=== PATIENT | female | born 1970 | race Caucasian/White ===

== ENCOUNTER 2022-02-22 19:13 | Emergency (ER) | payer OTHER, SELFPAY ==
[2022-02-22] VITALS (11 sets, daily range): BP systolic 77–100; BP diastolic 35–71; PULSE 55–83; RESP 14–16; TEMP 36.7; O2SAT 96–100; BMI 25.4
[2022-02-22 20:52] LABS: Appearance Urine Cloudy (Clear); Bilirubin Urine Negative (Negative); Blood Urine 2+ (Negative); Color Urine Yellow (Yellow); Glucose Urine Negative (Negative); Ketones Urine Trace (Negative); Leukocyte Esterase Urine 1+ (Negative); Nitrite Urine Positive (Negative); Protein Urine Trace (Negative); Urobilinogen Urine 0.2 (0.2-1.0); pH Urine 6.5 (5.0-8.5)
[2022-02-22 20:55] LABS: Bacteria Urine Moderate; Squamous Epithelial Cell Urine Few (None-Few)
--- NOTE | 2022-02-22 21:00 | ED.GENADULT ---
HPI - General Adult General Time Seen by Provider: 21:00 Date Seen: 02/22/22 Chief complaint: Urogenital Problems, Female Stated complaint: thinks she has an kidney infection. Time Seen by Provider: 02/22/22 21:00 Source: patient, RN notes reviewed and old records reviewed Mode of arrival: ambulatory Limitations: no limitations History of Present Illness HPI narrative: Diya is a very pleasant 51-year-old female known to me from previous ED visits to to the emergency room tonight for multiple complaints. First she is states that she has been coughing up brown sputum for a couple of months. She has had associated occasional dizziness with this and today even has right ear pain. She thought she was running a fever this morning but does not have a thermometer. She does not have a fever here in the emergency room. She notes that she does have a history of asthma and she continues to smoke. She states that she does occasionally get short of breath but at this is not more than usual. She has no lower extremity edema or recent periods of inactivity. Patient also notes that this morning she noticed some blood in her urine. She states that look like fresh blood in his was bright red. She notes that she finished her period a week ago. Yesterday and today she has had pain over the right flank. She denies any sexual activity. She states she feels like she has to push the urine out. Feels very tired but denies taking any pain medications or sleeping medications. She denies vomiting or nausea. She has not had any diarrhea. Related Data Home Medications Medication Instructions Recorded Confirmed Lactobacillus acidophilus 10 mg PO QDAY 12/23/21 12/23/21 buspirone 5 mg tablet 30 mg PO BID 12/23/21 02/22/22 cholecalciferol (vitamin D3) 50 2,000 unit PO DAILY 12/23/21 12/23/21 mcg (2,000 unit) tablet divalproex 125 mg tablet,delayed 500 mg PO QHS 12/23/21 02/22/22 release epinephrine 0.3 mg/0.3 mL 0.3 mg IM .As Needed PRN 12/23/21 02/22/22 injection, auto-injector fluconazole 150 mg tablet 150 mg PO ONCE 12/23/21 12/23/21 fluoxetine 20 mg capsule 40 mg PO DAILY 12/23/21 02/22/22 fluticasone propionate 230 1 inh inhalation BID 12/23/21 02/22/22 mcg-salmeterol 21 mcg/actuation HFA inhaler gabapentin 300 mg capsule 300 mg PO Q8H 12/23/21 02/22/22 levothyroxine 125 mcg tablet 125 mcg PO DAILY 12/23/21 02/22/22 lysine 500 mg tablet 500 mg PO Q12H 12/23/21 02/22/22 melatonin 3 mg capsule 6 mg PO .Bedtime as needed PRN 12/23/21 02/22/22 montelukast 10 mg tablet 10 mg PO .Bedtime 12/23/21 02/22/22 omeprazole 20 mg capsule,delayed 20 mg PO BID 12/23/21 02/22/22 release sulfamethoxazole 800 1 tab PO BID 12/23/21 12/23/21 mg-trimethoprim 160 mg tablet tizanidine 2 mg capsule 2 mg PO Q8H PRN 12/23/21 02/22/22 vancomycin 125 mg capsule 125 mg PO QID 12/23/21 12/23/21 albuterol sulfate 90 mcg/actuation 2 inh inhalation Q4H PRN 02/22/22 02/22/22 aerosol inhaler benzoyl peroxide 10 % topical 1 applic topical DAILY 02/22/22 02/22/22 cleanser clonidine HCl 0.1 mg tablet 0.1 mg PO Q12H 02/22/22 02/22/22 fexofenadine 180 mg tablet 180 mg PO DAILY 02/22/22 02/22/22 (Allergy Relief (fexofenadine)) hydroxyzine HCl 25 mg tablet 25 mg PO Q6H PRN 02/22/22 02/22/22 ipratropium 0.5 mg-albuterol 3 mg 3 ml inhalation Q6-8H PRN 02/22/22 02/22/22 (2.5 mg base)/3 mL nebulization soln mometasone 50 mcg/actuation nasal 2 spray intranasal Q12H 02/22/22 02/22/22 spray Allergies Allergy/AdvReac Type Severity Reaction Status Date / Time hydrocodone Allergy Mild Rash Verified 02/23/22 00:18 hydromorphone [From Dilaudid] Allergy Mild itching Verified 02/23/22 00:18 pollen extracts Allergy Mild itching Verified 02/23/22 00:18 sulfamethoxazole Allergy Mild Rash Verified 02/23/22 00:18 [From Bactrim] trimethoprim [From Bactrim] Allergy Mild Rash Verified 02/23/22 00:18 wheat Allergy Mild gluten Verified 02/23/22 00:18 intolerance quetiapine [From Seroquel] Allergy Unknown Verified 02/23/22 00:18 acetaminophen Allergy Verified 02/23/22 00:18 oxycodone Allergy Verified 02/23/22 00:18 prednisone Allergy itching Verified 02/23/22 00:18 Tetracyclines Allergy Rash Verified 02/23/22 00:18 tramadol Allergy loss of Verified 02/23/22 00:18 memory trazodone Allergy memory loss Verified 02/23/22 00:18 venlafaxine Allergy sweating Verified 02/23/22 00:18 potassium sparing diuretics Allergy Uncoded 02/23/22 00:18 Review of Systems Status of ROS: Reports: 6 or more systems reviewed and unremarkable except as noted in History and below Const: Reports: fever (Perhaps this morning. Subjective) and fatigue; Denies: chills Eyes: Denies: change in vision ENMT: Denies: throat pain or difficulty swallowing Cardio: Reports: lightheadedness and shortness of breath with exertion (Chronic); Denies: chest pain, palpitations or swelling of feet/ankles Resp: Reports: shortness of breath (Chronic) and cough (Productive of brown sputum) GI: Denies: abdominal pain, nausea, vomiting, diarrhea or difficulty swallowing : Reports: painful urination, urinary frequency, urinary urgency and blood in urine; Denies: urinary incontinence Musculo: Reports: back pain (Right flank) Neuro: Denies: headache or numbness in extremities Endo: Reports: fatigue [facility] Medical History Abnormal LFTs Adjustment disorder with depressed mood Anemia Anxiety Asthma (11/27/12) Asthma Celiac disease Chondromalacia of both patellae Chronic low back pain Chronic sinusitis Cystic acne DDD (degenerative disc disease), cervical Dermatitis Diaphragmatic hernia without mention of obstruction or gangrene Gastroesophageal reflux disease Generalized anxiety disorder Hiatal hernia History of methicillin resistant Staphylococcus aureus infection Hypothyroidism, acquired Major depression, recurrent Methicillin resistant Staphylococcus aureus infection Migraine Mixed hyperlipidemia KEE (nonalcoholic steatohepatitis) Osteoarthritis of patellofemoral joints of both knees Palpitations PTSD (post-traumatic stress disorder) Reflux esophagitis Seasonal allergic rhinitis due to pollen Tachycardia, unspecified Tobacco abuse Surgical History [place] teeth extracted Exam Narrative: Exam Narrative: Patient is initially sleeping. However when I enter the room she greets me and wakes up. She is alert and oriented and is actually at her baseline where I have seen her before in the ED. Her eyes are clear. Her TMs bilaterally are without bulging. There is mild erythema of the right TM. Oral cavity is moist mucous membranes. Neck is supple without lymphadenopathy. No exudate in posterior oropharynx. Heart with regular rate and rhythm without murmur. Lungs are clear in all lung navarrete. Positive right-sided CVA tenderness with percussion. Abdomen is otherwise soft and nontender. Pelvis is stable. Lower extremities without edema without calf pain and negative Homans sign. Const: Vital Signs, click to edit/add: Vital Signs - 24 hr 02/22/22 20:23 02/22/22 20:57 02/22/22 20:55 Temperature 98.1 F Pulse Rate [Left P ulse Oximeter] 83 71 64 Respiratory Rate 16 16 Blood Pressure [Ri ght Upper Arm] 100/63 94/52 L 99/54 L Pulse Oximetry 97 100 100 Oxygen Delivery Me thod Room Air Room Air Room Air 02/22/22 22:15 02/22/22 22:20 02/22/22 22:22 Temperature Pulse Rate [Left P ulse Oximeter] 55 L 58 L 60 Respiratory Rate 16 16 16 Blood Pressure [Ri ght Upper Arm] 81/47 L 77/36 L 89/53 L Pulse Oximetry 98 98 98 Oxygen Delivery Me thod Room Air Room Air Room Air 02/22/22 22:30 02/22/22 22:40 02/22/22 22:50 Temperature Pulse Rate [Left P ulse Oximeter] 56 L 59 L 61 Respiratory Rate 14 14 14 Blood Pressure [Ri ght Upper Arm] 82/39 L 80/40 L 79/35 L Pulse Oximetry 97 97 97 Oxygen Delivery Me thod Room Air Room Air Room Air 02/22/22 23:05 Temperature Pulse Rate [Left P ulse Oximeter] 64 Respiratory Rate 14 Blood Pressure [Ri ght Upper Arm] 91/57 L Pulse Oximetry 96 Oxygen Delivery Me thod Room Air Documenting provider has reviewed patient's vital signs: yes Course Course Hospital Course: Patient will be tested with triple swab for viruses, IV will be placed and we will check CBC, lactate, comprehensive panel, urinalysis and chest x-ray. Given patient's urinary symptoms and low blood pressure will also check blood cultures. Reevaluation(s) Reevaluation #1: Patient noted to have dropping blood pressures per nursing. Last blood pressure 79 systolic. I did enter the room and patient continues to wake up without any difficulty. Mentating normally. No evidence of a fever here. I applied the blood pressure cuff and blood pressure is 91 systolic. Patient states that she does have a history of low blood pressures in the 90s. She denies taking any sedative medications except for her routine medications. She is requesting either coffee or a Sprite to drink. A 2 L of normal saline is being given at this time while awaiting lactate. CT of the abdomen is also pending. Vital Signs Vital signs: Initial Vital Signs Temperature 98.1 F 02/22/22 20:23 Temperature Source Temporal Artery Scan 02/22/22 20:23 Pulse Rate 83 02/22/22 20:23 Respiratory Rate 16 02/22/22 20:23 Blood Pressure 100/63 02/22/22 20:23 Blood Pressure Mean 75 02/22/22 20:23 Blood Pressure Position Sitting 02/22/22 20:23 Pulse Oximetry 97 02/22/22 20:23 Oxygen Delivery Method 02/22/22 20:23 Vital Signs Temperature 98.1 F 02/22/22 20:23 Pulse Rate 83 02/22/22 20:23 Respiratory Rate 16 02/22/22 20:23 Blood Pressure 100/63 02/22/22 20:23 Pulse Oximetry 97 02/22/22 20:23 Oxygen Delivery Method 02/22/22 20:23 Temperature 98.1 F 02/22/22 20:23 Pulse Rate 64 02/22/22 23:05 Respiratory Rate 14 02/22/22 23:05 Blood Pressure 91/57 L 02/22/22 23:05 Pulse Oximetry 96 02/22/22 23:05 Oxygen Delivery Method 02/22/22 23:05 Medical Decision Making MDM Narrative Medical decision making narrative: 1. UTI -patient noted to have few red and white cells in her urine. She would did have positive leukocyte esterase. However I would have expected a greater amount of white cells to be noted. CT did not show any significant perirenal stranding. Patient was given Rocephin 1 g IV while awaiting laboratory values. Given the fact that we will be treating both of bronchitis and UTI will use Levaquin 500 mg daily for 7 days. Course will need to await urine culture. There is not an obstructing stone that is part of this picture. No evidence of sepsis with normal lactate white count and CRP. 2. Bronchitis -ongoing cough with brownish production for 2 months. No evidence of hypoxia, COVID or influenza. Antibiotic Levaquin as per 1.. 3. Mild right otitis media-antibiotic Levaquin as per 1. 4. Hypotension-patient tells me that she has chronic low blood pressure. She was given 2 L of normal saline here. No evidence of sepsis at this time with normal pulse, lactate and CRP as well as white count. Re-application of blood pressure cough did note improvement of systolic blood pressure. 5. Disposition-patient is discharged home will be going to stay with her mother margarita I think this is a good idea. Of course if she has increasing fever, vomiting, worsening symptoms would ask her to return to the emergency room. Noted on CT there was mild prominence of the headache docs. Alk-phos within normal limits. Medical Records Medical records reviewed: Yes I reviewed the patient's medical records Lab Data Lab results reviewed: Yes I reviewed the patient's lab results Labs: Lab Results 02/22/22 02/22/22 02/22/22 Range/Units 20:25 20:25 22:08 WBC 9.67 (4.50-11.00) K/uL RBC 4.48 (4.00-5.20) m/uL Hgb 11.6 L (12.0-16.0) gm/dL Hct 36.3 (33.0-51.0) % MCV 81 (80-100) fL MCH 26 (26-34) pg MCHC 32 (32-36) gm/dL RDW Coeff of Tori 13.9 (11.5-15.5) % Plt Count 418 (140-440) K/uL Neut % (Auto) 44.1 (42.0-72.0) % Lymph % (Auto) 44.1 H (20-44) % [place] % (Auto) 6.1 (0.0-11.0) % Eos % (Auto) 4.6 (0.0-7.0) % Baso % (Auto) 0.7 (0.0-3.0) % Neut # (Auto) 4.27 (1.7-7.0) K/uL Lymph # (Auto) 4.30 H (0.90-2.90) K/uL [place] # (Auto) 0.60 (0.00-0.90) K/UL Eos # (Auto) 0.44 (0.00-0.50) K/uL Baso # (Auto) 0.07 (0.00-0.30) K/uL Abs Immat Gran (auto) 0.04 (0.00-0.30) K/uL Imm/Tot Granulo (auto) 0.4 % Sodium (135-149) mmol/L Potassium (3.6-5.1) mmol/L Chloride (96-114) mmol/L Carbon Dioxide (20-32) mmol/L BUN (5-24) mg/dL Creatinine (0.5-1.5) mg/dL Estimated Creat Clear Estimated GFR ml/min Glucose (60-115) mg/dL Lactate (0.5-1.9) mmol/L Calcium (8.4-10.6) mg/dL Total Bilirubin (0.1-1.5) mg/dL AST (12-35) U/L ALT (4-35) U/L Alkaline Phosphatase (40-150) U/L C-Reactive Protein (0.5-1.0) mg/dL Total Protein (6.0-8.3) g/dL Albumin (3.3-5.0) g/dL Urine Color Yellow (Yellow) Urine Appearance Cloudy A (Clear) Urine pH 6.5 (5.0-8.5) Ur Specific [place] 1.020 (1.000-1.030) Urine Protein Trace A (Negative) Urine Glucose (UA) Negative (Negative) Urine Ketones Trace A (Negative) Urine Blood 2+ A (Negative) Urine Nitrite Positive A (Negative) Urine Bilirubin Negative (Negative) Urine Urobilinogen 0.2 (0.2-1.0) Ur Leukocyte Esterase 1+ A (Negative) Urine RBC 5-10 A (0-2) Urine WBC 2-5 (0-5) Ur Squamous Epith Cells Few (None-Few) Urine Bacteria Moderate A (None) SARS-CoV-2 (PCR) Negative SARS-CoV-2 (Negative) Influenza Type A (PCR) Negative PCR FLU A (Negative) Influenza Type B (PCR) Negative PCR FLU B (Negative) RSV (PCR) Negative PCR RSV (Negative) 02/22/22 02/22/22 Range/Units 22:08 22:55 WBC (4.50-11.00) K/uL RBC (4.00-5.20) m/uL Hgb (12.0-16.0) gm/dL Hct (33.0-51.0) % MCV (80-100) fL MCH (26-34) pg MCHC (32-36) gm/dL RDW Coeff of Tori (11.5-15.5) % Plt Count (140-440) K/uL Neut % (Auto) (42.0-72.0) % Lymph % (Auto) (20-44) % [place] % (Auto) (0.0-11.0) % Eos % (Auto) (0.0-7.0) % Baso % (Auto) (0.0-3.0) % Neut # (Auto) (1.7-7.0) K/uL Lymph # (Auto) (0.90-2.90) K/uL [place] # (Auto) (0.00-0.90) K/UL Eos # (Auto) (0.00-0.50) K/uL Baso # (Auto) (0.00-0.30) K/uL Abs Immat Gran (auto) (0.00-0.30) K/uL Imm/Tot Granulo (auto) % Sodium 138 (135-149) mmol/L Potassium 3.9 (3.6-5.1) mmol/L Chloride 109 (96-114) mmol/L Carbon Dioxide 25 (20-32) mmol/L BUN 15 (5-24) mg/dL Creatinine 0.5 (0.5-1.5) mg/dL Estimated Creat Clear 107.65 Estimated GFR 115 ml/min Glucose 81 (60-115) mg/dL Lactate 1.0 (0.5-1.9) mmol/L Calcium 8.4 (8.4-10.6) mg/dL Total Bilirubin 0.2 (0.1-1.5) mg/dL AST 22 (12-35) U/L ALT 14 (4-35) U/L Alkaline Phosphatase 59 (40-150) U/L C-Reactive Protein < 0.5 L (0.5-1.0) mg/dL Total Protein 6.3 (6.0-8.3) g/dL Albumin 4.0 (3.3-5.0) g/dL Urine Color (Yellow) Urine Appearance (Clear) Urine pH (5.0-8.5) Ur Specific [place] (1.000-1.030) Urine Protein (Negative) Urine Glucose (UA) (Negative) Urine Ketones (Negative) Urine Blood (Negative) Urine Nitrite (Negative) Urine Bilirubin (Negative) Urine Urobilinogen (0.2-1.0) Ur Leukocyte Esterase (Negative) Urine RBC (0-2) Urine WBC (0-5) Ur Squamous Epith Cells (None-Few) Urine Bacteria (None) SARS-CoV-2 (PCR) (Negative) Influenza Type A (PCR) (Negative) Influenza Type B (PCR) (Negative) RSV (PCR) (Negative) Imaging Data Chest x-ray: Attestation: I have reviewed the pertinent imaging results. My impression: No noted pneumonia Radiologist's impression: Lungs: Normal lung volume. No consolidation. The tracheobronchial tree and hilar structures are unremarkable. Pleura: No pleural effusion or pneumothorax. Heart and Mediastinum: Normal heart size. The great vessels of the thorax are unremarkable. Bones: No acute displaced osseous process. IMPRESSION: No consolidation. CT scan - abdomen: Attestation: I have reviewed the pertinent imaging results. Radiologist's impression: Liver: No suspicious focal hepatic lesion. Gallbladder and bile ducts: No calcified gallstones. Normal common bile duct. There is mild prominence of the intrahepatic biliary ducts. Pancreas: Unremarkable. Spleen: Unremarkable. Adrenal glands: Unremarkable. Kidneys: Kidneys enhance symmetrically, without hydronephrosis. Punctate nonobstructing calculus in the upper pole of the right kidney. Retroperitoneum: No lymphadenopathy. Bowel and mesentery: Bowel is not obstructed. Normal appendix. No significant ascites. No pneumoperitoneum. Bladder: Circumferential bladder wall thickening. Reproductive organs: Unremarkable. Pelvic lymph nodes: No lymphadenopathy. Vessels: Unremarkable. Abdominal wall: No acute abdominal wall abnormality. Bones: Mild multilevel degenerative changes of the spine. No suspicious/aggressive focal osseous lesion. IMPRESSION: 1. Circumferential urinary bladder wall thickening, worrisome for cystitis. Recommend correlation with urinalysis. 2. Punctate nonobstructing calculus in the upper pole of the right kidney. 3. Mild prominence of the intrahepatic biliary ducts, of uncertain etiology. Recommend correlation with serum alkaline phosphatase. ECG Data Attestation: I personally reviewed and interpreted this ECG as follows: Discharge Plan Discharge Clinical Impression: Urinary tract infection, Chronic hypotension Patient Disposition: Home, Self-Care Condition: Improved Additional Instructions: Start Levaquin tonight and continue for a total of 1 week. This should treat both a urinary tract infection as well as bronchitis. Recommend pushing fluids. Seek medical attention for fever, worsening symptoms and as needed. Try to eat gluten free. Try to stop smoking I agree with the plan to stay with your mother tonmaris. Prescriptions: No Action cholecalciferol (vitamin D3) 50 mcg (2,000 unit) tablet 2,000 unit PO DAILY fluticasone propion-salmeterol 230-21 mcg/actuation HFA aerosol inhaler 1 inh inhalation BID fluoxetine 20 mg capsule 40 mg PO DAILY lysine 500 mg tablet 500 mg PO Q12H epinephrine 0.3 mg/0.3 mL auto-injector 0.3 mg IM .As Needed PRN montelukast 10 mg tablet 10 mg PO .Bedtime omeprazole 20 mg capsule,delayed release(DR/EC) 20 mg PO BID divalproex 125 mg tablet,delayed release (DR/EC) 500 mg PO QHS levothyroxine 125 mcg tablet 125 mcg PO DAILY fluconazole 150 mg tablet 150 mg PO ONCE tizanidine 2 mg capsule 2 mg PO Q8H PRN gabapentin 300 mg capsule 300 mg PO Q8H buspirone 5 mg tablet 30 mg PO BID Lactobacillus acidophilus Capsule 10 mg PO QDAY vancomycin 125 mg capsule 125 mg PO QID sulfamethoxazole-trimethoprim 800-160 mg tablet 1 tab PO BID melatonin 3 mg capsule 6 mg PO .Bedtime as needed PRN albuterol sulfate 90 mcg/actuation HFA aerosol inhaler 2 inh inhalation Q4H PRN ipratropium-albuterol 0.5 mg-3 mg(2.5 mg base)/3 mL solution for nebulization 3 ml inhalation Q6-8H PRN clonidine HCl 0.1 mg tablet 0.1 mg PO Q12H fexofenadine [Allergy Relief (fexofenadine)] 180 mg tablet 180 mg PO DAILY benzoyl peroxide 10 % cleanser 1 applic topical DAILY mometasone 50 mcg/actuation spray,non-aerosol 2 spray intranasal Q12H Rx Instructions: administer into each nostril hydroxyzine HCl 25 mg tablet 25 mg PO Q6H PRN Follow Up/Referrals: Bj Noe MD [Primary Care Provider] - Stand Alone Forms: [facility] Info Instructions
[2022-02-22 21:10] LABS: PCR FLU A Negative PCR FLU A (Negative); PCR FLU B Negative PCR FLU B (Negative); PCR RSV Negative PCR RSV (Negative)
[2022-02-22 21:16] LABS: SARS PCR* Negative SARS-CoV-2 (Negative)
--- NOTE | 2022-02-22 21:38 | CRLHL7_ITS ---
For Patients: As a result of the Century Cures Act, medical imaging exams and procedure reports are released immediately into your electronic medical record. You may view this report before your referring provider. If you have questions, please contact your health care provider. INDICATION: Cough. TECHNIQUE: Chest 1 views. COMPARISON: February 2018. FINDINGS: Lungs: Normal lung volume. No consolidation. The tracheobronchial tree and hilar structures are unremarkable. Pleura: No pleural effusion or pneumothorax. Heart and Mediastinum: Normal heart size. The great vessels of the thorax are unremarkable. Bones: No acute displaced osseous process. IMPRESSION: No consolidation. Dictated by Panchito Montelongo MD @ 02/22/2022 9:59:32 PM (Electronically Signed)
[2022-02-22] MEDS: cefTRIAXone 1 GM in 0.9 % SODIUM CHLORIDE Mini-bag 100 ML IVPB (22:18)
[2022-02-22] MEDS: 0.9 % SODIUM CHLORIDE 1000 ml 1,000 ML IV ×2 (22:20→22:58)
[2022-02-22 22:42] LABS: Chloride* 109 mmol/L (96-114)
[2022-02-22 22:43] LABS: Potassium* 3.9 mmol/L (3.6-5.1); Sodium* 138 mmol/L (135-149)
[2022-02-22 22:45] LABS: Bilirubin Total* 0.2 mg/dL (0.1-1.5); Creatinine* 0.5 mg/dL (0.5-1.5); Est. Creatinine Clearance* 107.65; Estimated Glomerular Filt Rate 115 ml/min
[2022-02-22 22:46] LABS: Alanine Aminotransferase* 14 U/L (4-35); Alkaline Phosphatase* 59 U/L (40-150); Aspartate Amino Transferase* 22 U/L (12-35); Blood Urea Nitrogen* 15 mg/dL (5-24); Calcium* 8.4 mg/dL (8.4-10.6); Carbon Dioxide* 25 mmol/L (20-32); Glucose* 81 mg/dL (60-115); Total Protein* 6.3 g/dL (6.0-8.3)
[2022-02-22 22:50] LABS: C Reactive Protein* < 0.5 mg/dL (0.5-1.0)
--- NOTE | 2022-02-22 22:55 | CRLHL7_ITS ---
For Patients: As a result of the Century Cures Act, medical imaging exams and procedure reports are released immediately into your electronic medical record. You may view this report before your referring provider. If you have questions, please contact your health care provider. INDICATION: Right flank pain. TECHNIQUE: CT abdomen and pelvis acquired with 71 mL Isovue 370 contrast. COMPARISON: CT abdomen/pelvis dated 06/05/2013. FINDINGS: Lower chest: Motion artifact. Scattered subsegmental atelectasis. No focal consolidation. Liver: No suspicious focal hepatic lesion. Gallbladder and bile ducts: No calcified gallstones. Normal common bile duct. There is mild prominence of the intrahepatic biliary ducts. Pancreas: Unremarkable. Spleen: Unremarkable. Adrenal glands: Unremarkable. Kidneys: Kidneys enhance symmetrically, without hydronephrosis. Punctate nonobstructing calculus in the upper pole of the right kidney. Retroperitoneum: No lymphadenopathy. Bowel and mesentery: Bowel is not obstructed. Normal appendix. No significant ascites. No pneumoperitoneum. Bladder: Circumferential bladder wall thickening. Reproductive organs: Unremarkable. Pelvic lymph nodes: No lymphadenopathy. Vessels: Unremarkable. Abdominal wall: No acute abdominal wall abnormality. Bones: Mild multilevel degenerative changes of the spine. No suspicious/aggressive focal osseous lesion. IMPRESSION: 1. Circumferential urinary bladder wall thickening, worrisome for cystitis. Recommend correlation with urinalysis. 2. Punctate nonobstructing calculus in the upper pole of the right kidney. 3. Mild prominence of the intrahepatic biliary ducts, of uncertain etiology. Recommend correlation with serum alkaline phosphatase. Please note that all CT scans at this facility use dose modulation, iterative reconstruction, and/or weight-based dosing when appropriate to reduce radiation dose to as low as reasonably achievable. Dictated by Jany Arrieta MD @ 02/23/2022 12:01:45 AM (Electronically Signed)
[2022-02-22 22:59] LABS: Basophils Absolute Auto 0.07 K/uL (0.00-0.30); Basophils Percent Auto 0.7 % (0.0-3.0); Eosinophils Absolute Auto 0.44 K/uL (0.00-0.50); Eosinophils Percent Auto 4.6 % (0.0-7.0); Hematocrit 36.3 % (33.0-51.0); Hemoglobin* 11.6 gm/dL (12.0-16.0); Immature Granulocytes Abs Auto 0.04 K/uL (0.00-0.30); Immature Granulocytes Pct Auto 0.4 %; Lymphocytes Percent Auto 44.1 % (20-44); Mean Corpuscular HGB Conc 32 gm/dL (32-36); Mean Corpuscular Hemoglobin 26 pg (26-34); Mean Corpuscular Volume 81 fL (80-100); Monocytes Percent Auto 6.1 % (0.0-11.0); Neutrophils Absolute Auto 4.27 K/uL (1.7-7.0); Neutrophils Percent Auto 44.1 % (42.0-72.0); Platelet Count* 418 K/uL (140-440); RDW Coefficient of Variation % 13.9 % (11.5-15.5); Red Blood Count 4.48 m/uL (4.00-5.20); White Blood Count* 9.67 K/uL (4.50-11.00)
[2022-02-22 23:03] LABS: Slide Review Reflex No
--- NOTE | 2022-02-22 23:12 | ED.NURSE ---
patient was having low bp and placed in Trendelenburg and bp 91/57. Dr. Hayes went into room to see patient and talked to. given a sprite to drink and hung 2nd liter of fluids as patient has not voided yet from first liter and 100cc of antibiotic infusion. patient stated is probably dehydrated.
[2022-02-23] VITALS: BP 100/53; PULSE 68; O2SAT 100
[2022-02-23 00:30] VITALS: BP 113/60; PULSE 74; O2SAT 99
[2022-02-23] MEDS: ACETAMINOPHEN 325 MG TABLET 650 MG PO (00:34)
== END 2022-02-23 00:50 | disposition home or self-care (01) ==
PROVIDERS: Family Medicine; Emergency Provider Family Medicine; PCP Family Medicine
DX: N39.0 Urinary tract infection, site not specified (principal); I95.9 Hypotension, unspecified
CPT/HCPCS: 36415; 71045; 74177; 80053; 81001; 83605; 85025; 86140; 87040; 87086; 87186; 87502; 87634; 87635; 93005; 96365; 99285; A9270; J0696; J7030; Q9967

== ENCOUNTER 2022-03-11 17:30 | Emergency (ER) | payer OTHER, SELFPAY ==
[2022-03-11 18:00] VITALS: BP 100/66; PULSE 69; RESP 18; TEMP 36.4; O2SAT 100; BMI 25.6
[2022-03-11 18:24] LABS: Appearance Urine Cloudy (Clear)
[2022-03-11 18:25] LABS: Bilirubin Urine Negative (Negative); Blood Urine Negative (Negative); Color Urine Yellow (Yellow); Glucose Urine Negative (Negative); Ketones Urine Negative (Negative); Leukocyte Esterase Urine Negative (Negative); Nitrite Urine Negative (Negative); Protein Urine Negative (Negative); Urobilinogen Urine 0.2 (0.2-1.0)
[2022-03-11 18:26] LABS: Bacteria Urine Few; RBC Urine 0-2 (0-2); Squamous Epithelial Cell Urine Many (None-Few)
--- NOTE | 2022-03-11 18:41 | ED_ITS ---
HPI - General Adult General Chief complaint: Unspecified Complaint, Adult Stated complaint: Bronchitis, bladder infection worsening Time Seen by Provider: 03/11/22 18:05 History of Present Illness HPI narrative: This 51-year-old female comes in reporting some mild dysuria symptoms and states that she is coughing mucus especially in the morning. She was seen 2 weeks ago and diagnosed with the urinary tract infection. She received a prescription for Levaquin for 7 days. She states that she completed this treatment and felt better. She is a smoker and states that she is been cutting back on smoking. She does have asthma symptoms and is taking albuterol and Advair. She does not report any shortness of breath but states that her mucus production seems increased in the morning. She denies having any fevers. She comes into the emergency department stating that she could not get in to see her doctor until 3 or 4 days from now after the holiday weekend. She arrives with normal vital signs. Related Data Home Medications Medication Instructions Recorded Confirmed Lactobacillus acidophilus 10 mg PO QDAY 12/23/21 12/23/21 buspirone 5 mg tablet 30 mg PO BID 12/23/21 02/22/22 cholecalciferol (vitamin D3) 50 2,000 unit PO DAILY 12/23/21 12/23/21 mcg (2,000 unit) tablet divalproex 125 mg tablet,delayed 500 mg PO QHS 12/23/21 02/22/22 release epinephrine 0.3 mg/0.3 mL 0.3 mg IM .As Needed PRN 12/23/21 02/22/22 injection, auto-injector fluconazole 150 mg tablet 150 mg PO ONCE 12/23/21 12/23/21 fluoxetine 20 mg capsule 40 mg PO DAILY 12/23/21 02/22/22 fluticasone propionate 230 1 inh inhalation BID 12/23/21 02/22/22 mcg-salmeterol 21 mcg/actuation HFA inhaler gabapentin 300 mg capsule 300 mg PO Q8H 12/23/21 02/22/22 levothyroxine 125 mcg tablet 125 mcg PO DAILY 12/23/21 02/22/22 lysine 500 mg tablet 500 mg PO Q12H 12/23/21 02/22/22 melatonin 3 mg capsule 6 mg PO .Bedtime as needed PRN 12/23/21 02/22/22 montelukast 10 mg tablet 10 mg PO .Bedtime 12/23/21 02/22/22 omeprazole 20 mg capsule,delayed 20 mg PO BID 12/23/21 02/22/22 release sulfamethoxazole 800 1 tab PO BID 12/23/21 12/23/21 mg-trimethoprim 160 mg tablet tizanidine 2 mg capsule 2 mg PO Q8H PRN 12/23/21 02/22/22 vancomycin 125 mg capsule 125 mg PO QID 12/23/21 12/23/21 albuterol sulfate 90 mcg/actuation 2 inh inhalation Q4H PRN 02/22/22 02/22/22 aerosol inhaler benzoyl peroxide 10 % topical 1 applic topical DAILY 02/22/22 02/22/22 cleanser clonidine HCl 0.1 mg tablet 0.1 mg PO Q12H 02/22/22 02/22/22 fexofenadine 180 mg tablet 180 mg PO DAILY 02/22/22 02/22/22 (Allergy Relief (fexofenadine)) hydroxyzine HCl 25 mg tablet 25 mg PO Q6H PRN 02/22/22 02/22/22 ipratropium 0.5 mg-albuterol 3 mg 3 ml inhalation Q6-8H PRN 02/22/22 02/22/22 (2.5 mg base)/3 mL nebulization soln mometasone 50 mcg/actuation nasal 2 spray intranasal Q12H 02/22/22 02/22/22 spray Previous Rx's Medication Instructions Recorded methylprednisolone 4 mg tablets in See Rx Instructions PO .COMPLEX 03/11/22 a dose pack (Sphere Fluidicsrol (Murray)) #21 ea Allergies Allergy/AdvReac Type Severity Reaction Status Date / Time hydrocodone Allergy Mild Rash Verified 02/23/22 00:18 hydromorphone [From Dilaudid] Allergy Mild itching Verified 02/23/22 00:18 pollen extracts Allergy Mild itching Verified 02/23/22 00:18 sulfamethoxazole Allergy Mild Rash Verified 02/23/22 00:18 [From Bactrim] trimethoprim [From Bactrim] Allergy Mild Rash Verified 02/23/22 00:18 wheat Allergy Mild gluten Verified 02/23/22 00:18 intolerance quetiapine [From Seroquel] Allergy Unknown Verified 02/23/22 00:18 acetaminophen Allergy Verified 02/23/22 00:18 oxycodone Allergy Verified 02/23/22 00:18 prednisone Allergy itching Verified 02/23/22 00:18 Tetracyclines Allergy Rash Verified 02/23/22 00:18 tramadol Allergy loss of Verified 02/23/22 00:18 memory trazodone Allergy memory loss Verified 02/23/22 00:18 venlafaxine Allergy sweating Verified 02/23/22 00:18 potassium sparing diuretics Allergy Uncoded 02/23/22 00:18 Review of Systems Status of ROS: Reports: 10 or more systems reviewed and unremarkable except as noted in History and below Narrative: Constitutional: No fevers, no weight gain or loss. Eyes: No discharge. No vision changes. HENT: No congestion, no sore throat, no ear pain. Cardiovascular: No chest pain, no palpitations. Respiratory: No shortness of breath, no wheezes, no cough. She has productive mucus especially in the morning. Gastrointestinal: No abdominal pain, no vomiting, no diarrhea. Genitourinary: No hematuria. She reports some twinges of pain when passing urine. Musculoskeletal: Normal range of motion. Skin: No rashes, no pruritis. Neurological: No dizziness, weakness, sensory change, speech change. Endo/Heme/Allergies: No bruising or bleeding. No polydipsia. Pysch: no suicidality, no anxiety, no insomnia. All other systems reviewed and are negative. [facility] Medical History Abnormal LFTs Adjustment disorder with depressed mood Anemia Anxiety Asthma (11/27/12) Asthma Celiac disease Chondromalacia of both patellae Chronic low back pain Chronic sinusitis Cystic acne DDD (degenerative disc disease), cervical Dermatitis Diaphragmatic hernia without mention of obstruction or gangrene Gastroesophageal reflux disease Generalized anxiety disorder Hiatal hernia History of methicillin resistant Staphylococcus aureus infection Hypothyroidism, acquired Major depression, recurrent Methicillin resistant Staphylococcus aureus infection Migraine Mixed hyperlipidemia KEE (nonalcoholic steatohepatitis) Osteoarthritis of patellofemoral joints of both knees Palpitations PTSD (post-traumatic stress disorder) Reflux esophagitis Seasonal allergic rhinitis due to pollen Tachycardia, unspecified Tobacco abuse Surgical History Brohman teeth extracted Exam Narrative: Exam Narrative: Constitutional: Well-developed, well-nourished, no acute distress. HEENT: Normocephalic, atraumatic. Neck: Normal range of motion. Nontender. Supple. Heart: Regular. No murmurs. Normal rate. Intact distal pulses. Lungs: Clear to auscultation. No chest discomfort. No wheezes, rhonchi, or rales. Abdomen: Normal bowel sounds. Nontender. No rebound tenderness. Genitalia: Deferred. Back: No midline tenderness. Normal range of motion. Extremities: Normal range of motion. No injury. Skin: Intact. No rash. Warm. No erythema or pallor. Neurologic: No altered sensation. No weakness. Alert and oriented. Psychiatric: No suicidality. No anxiety or depression. No insomnia. Nursing notes and vitals signs are reviewed. Const: Vital Signs, click to edit/add: Vital Signs - 24 hr 03/11/22 18:00 Temperature 97.5 F L Pulse Rate [Right Pulse Oximeter] 69 Respiratory Rate 18 Blood Pressure [Ri ght Upper Arm] 100/66 Pulse Oximetry 100 Oxygen Delivery Me thod Room Air Course Vital Signs Vital signs: Initial Vital Signs Temperature 97.5 F L 03/11/22 18:00 Temperature Source Temporal Artery Scan 03/11/22 18:00 Pulse Rate 69 03/11/22 18:00 Respiratory Rate 18 03/11/22 18:00 Blood Pressure 100/66 03/11/22 18:00 Blood Pressure Mean 77 03/11/22 18:00 Blood Pressure Position Sitting 03/11/22 18:00 Pulse Oximetry 100 03/11/22 18:00 Oxygen Delivery Method 03/11/22 18:00 Vital Signs Temperature 97.5 F L 03/11/22 18:00 Pulse Rate 69 03/11/22 18:00 Respiratory Rate 18 03/11/22 18:00 Blood Pressure 100/66 03/11/22 18:00 Pulse Oximetry 100 03/11/22 18:00 Oxygen Delivery Method 03/11/22 18:00 Temperature 97.5 F L 03/11/22 18:00 Pulse Rate 69 03/11/22 18:00 Respiratory Rate 18 03/11/22 18:00 Blood Pressure 100/66 03/11/22 18:00 Pulse Oximetry 100 03/11/22 18:00 Oxygen Delivery Method 03/11/22 18:00 Medical Decision Making MDM Narrative Medical decision making narrative: This patient comes in reporting some mild dysuria symptoms. Urinalysis shows no sign of infection. She may be having some bladder spasms. I advised using [id number] azo as needed and directed. A urine culture is pending but urinalysis is not showing sign of infection. As for her mucus production, her lungs do sound clear. There is no sign of wheezes or use of accessory muscles for breathing. Her vital signs are in normal range. She is a smoker and states that she has been cutting back on smoking. I explained that some people have the increased mucus production when quitting smoking. I encouraged her to con tinue this process as it will resolve over time. She did receive a prescription for Medrol Dosepak and is encouraged to use [id number] azo as needed and directed for urinary symptoms. Lab Data Labs: Lab Results 03/11/22 Range/Units 18:08 Urine Color Yellow (Yellow) Urine Appearance Cloudy A (Clear) Urine pH 6.0 (5.0-8.5) Ur Specific Patriot 1.020 (1.000-1.030) Urine Protein Negative (Negative) Urine Glucose (UA) Negative (Negative) Urine Ketones Negative (Negative) Urine Blood Negative (Negative) Urine Nitrite Negative (Negative) Urine Bilirubin Negative (Negative) Urine Urobilinogen 0.2 (0.2-1.0) Ur Leukocyte Esterase Negative (Negative) Urine RBC 0-2 (0-2) Urine WBC 2-5 (0-5) Ur Squamous Epith Cells Many A (None-Few) Urine Bacteria Few A (None) Discharge Plan Discharge Clinical Impression: Excessive mucus secretion, Bladder spasms Patient Disposition: Home, Self-Care Condition: Stable Additional Instructions: Take medication as prescribed. Consider using Azo for bladder spasms. Follow up with MD or return if worsening. Prescriptions: New methylprednisolone [Medrol (Murray)] 4 mg tablets,dose pack See Rx Instructions .ROUTE .COMPLEX Qty: 21 0RF Rx Instructions: orally per package directions No Action cholecalciferol (vitamin D3) 50 mcg (2,000 unit) tablet 2,000 unit PO DAILY fluticasone propion-salmeterol 230-21 mcg/actuation HFA aerosol inhaler 1 inh inhalation BID fluoxetine 20 mg capsule 40 mg PO DAILY lysine 500 mg tablet 500 mg PO Q12H epinephrine 0.3 mg/0.3 mL auto-injector 0.3 mg IM .As Needed PRN montelukast 10 mg tablet 10 mg PO .Bedtime omeprazole 20 mg capsule,delayed release(DR/EC) 20 mg PO BID divalproex 125 mg tablet,delayed release (DR/EC) 500 mg PO QHS levothyroxine 125 mcg tablet 125 mcg PO DAILY fluconazole 150 mg tablet 150 mg PO ONCE tizanidine 2 mg capsule 2 mg PO Q8H PRN gabapentin 300 mg capsule 300 mg PO Q8H buspirone 5 mg tablet 30 mg PO BID Lactobacillus acidophilus Capsule 10 mg PO QDAY vancomycin 125 mg capsule 125 mg PO QID sulfamethoxazole-trimethoprim 800-160 mg tablet 1 tab PO BID melatonin 3 mg capsule 6 mg PO .Bedtime as needed PRN albuterol sulfate 90 mcg/actuation HFA aerosol inhaler 2 inh inhalation Q4H PRN ipratropium-albuterol 0.5 mg-3 mg(2.5 mg base)/3 mL solution for nebulization 3 ml inhalation Q6-8H PRN clonidine HCl 0.1 mg tablet 0.1 mg PO Q12H fexofenadine [Allergy Relief (fexofenadine)] 180 mg tablet 180 mg PO DAILY benzoyl peroxide 10 % cleanser 1 applic topical DAILY mometasone 50 mcg/actuation spray,non-aerosol 2 spray intranasal Q12H Rx Instructions: administer into each nostril hydroxyzine HCl 25 mg tablet 25 mg PO Q6H PRN Follow Up/Referrals: Bj Noe MD [Primary Care Provider] - Stand Alone Forms: [facility] Info Instructions
== END 2022-03-11 19:10 | disposition home or self-care (01) ==
PROVIDERS: Emergency Provider Emergency Medicine Emergency Medical Services; PCP Family Medicine
DX: N32.89 Other specified disorders of bladder (principal); R09.3 Abnormal sputum
CPT/HCPCS: 81001; 87086; 99283; 99284

== ENCOUNTER 2022-04-07 17:53 | Emergency (ER) | payer OTHER, SELFPAY ==
[2022-04-07 18:01] VITALS: BP 113/76; PULSE 80; RESP 18; TEMP 36.4; O2SAT 100; BMI 27.4
--- NOTE | 2022-04-07 20:28 | ED_ITS ---
HPI - Abdominal Pain General Time Seen by Provider: 20:28 Date Seen: 04/07/22 Chief Complaint: Abdominal Pain Stated Complaint: Stool smells like decay/Abdominal Pain Time Seen by Provider: 04/07/22 20:28 Source: patient, RN notes reviewed and old records reviewed Mode of arrival: ambulatory Limitations: no limitations History of Present Illness HPI narrative: Diya is a very pleasant 51-year-old female with history of celiac disease, noncompliance, chronic back pain, PTSD who comes to the emergency room with complaints of lower abdominal pain along with malodorous stool. Patient notes for the past 2 weeks she has had stool that has but particularly foul smelling. She notes that she also has a ?sore belly? and she shows me the lower pelvic area. She describes this areas being on fire. She states that she feels dizzy and feels like passing out but she has not had any fevers. She does note some night sweats however. Patient notes that her stools have been very soft and even occasionally diarrhea like. She has not had any blood in her stool. She notes however that in July of 2021 she was told she had blood in her stool and was supposed to see a GI specialist but did not. Patient notes that any movement seems to cause mild nausea. She states that she does not feel that this is her vaginal area and feels like it is deeper than that. She denies history of PID chlamydia or gonorrhea. She has not been sexually active for quite some time. She does note that she has had associated weight loss and decreased appetite over the past 2 weeks. She had a normal. One month ago. Not currently on any control. I do ask patient about her sleepiness and she states that she has been using medical marijuana recently. Related Data Home Medications Medication Instructions Recorded Confirmed Lactobacillus acidophilus 10 mg PO QDAY 12/23/21 12/23/21 buspirone 5 mg tablet 30 mg PO BID 12/23/21 02/22/22 cholecalciferol (vitamin D3) 50 2,000 unit PO DAILY 12/23/21 12/23/21 mcg (2,000 unit) tablet divalproex 125 mg tablet,delayed 500 mg PO QHS 12/23/21 02/22/22 release epinephrine 0.3 mg/0.3 mL 0.3 mg IM .As Needed PRN 12/23/21 02/22/22 injection, auto-injector fluconazole 150 mg tablet 150 mg PO ONCE 12/23/21 12/23/21 fluoxetine 20 mg capsule 40 mg PO DAILY 12/23/21 02/22/22 fluticasone propionate 230 1 inh inhalation BID 12/23/21 02/22/22 mcg-salmeterol 21 mcg/actuation HFA inhaler gabapentin 300 mg capsule 300 mg PO Q8H 12/23/21 02/22/22 levothyroxine 125 mcg tablet 125 mcg PO DAILY 12/23/21 02/22/22 lysine 500 mg tablet 500 mg PO Q12H 12/23/21 02/22/22 melatonin 3 mg capsule 6 mg PO .Bedtime as needed PRN 12/23/21 02/22/22 montelukast 10 mg tablet 10 mg PO .Bedtime 12/23/21 02/22/22 omeprazole 20 mg capsule,delayed 20 mg PO BID 12/23/21 02/22/22 release sulfamethoxazole 800 1 tab PO BID 12/23/21 12/23/21 mg-trimethoprim 160 mg tablet tizanidine 2 mg capsule 2 mg PO Q8H PRN 12/23/21 02/22/22 vancomycin 125 mg capsule 125 mg PO QID 12/23/21 12/23/21 albuterol sulfate 90 mcg/actuation 2 inh inhalation Q4H PRN 02/22/22 02/22/22 aerosol inhaler benzoyl peroxide 10 % topical 1 applic topical DAILY 02/22/22 02/22/22 cleanser clonidine HCl 0.1 mg tablet 0.1 mg PO Q12H 02/22/22 02/22/22 fexofenadine 180 mg tablet 180 mg PO DAILY 02/22/22 02/22/22 (Allergy Relief (fexofenadine)) hydroxyzine HCl 25 mg tablet 25 mg PO Q6H PRN 02/22/22 02/22/22 ipratropium 0.5 mg-albuterol 3 mg 3 ml inhalation Q6-8H PRN 02/22/22 02/22/22 (2.5 mg base)/3 mL nebulization soln mometasone 50 mcg/actuation nasal 2 spray intranasal Q12H 02/22/22 02/22/22 spray Previous Rx's Medication Instructions Recorded methylprednisolone 4 mg tablets in See Rx Instructions PO .COMPLEX 03/11/22 a dose pack (Medrol (Murray)) #21 ea doxycycline hyclate 100 mg capsule 100 mg PO BID 14 days #28 caps 04/08/22 metronidazole 500 mg tablet 500 mg PO BID 14 days #28 tabs 04/08/22 Allergies Allergy/AdvReac Type Severity Reaction Status Date / Time hydrocodone Allergy Mild Rash Verified 02/23/22 00:18 hydromorphone [From Dilaudid] Allergy Mild itching Verified 02/23/22 00:18 pollen extracts Allergy Mild itching Verified 02/23/22 00:18 sulfamethoxazole Allergy Mild Rash Verified 02/23/22 00:18 [From Bactrim] trimethoprim [From Bactrim] Allergy Mild Rash Verified 02/23/22 00:18 wheat Allergy Mild gluten Verified 02/23/22 00:18 intolerance quetiapine [From Seroquel] Allergy Unknown Verified 02/23/22 00:18 acetaminophen Allergy Verified 02/23/22 00:18 oxycodone Allergy Verified 02/23/22 00:18 prednisone Allergy itching Verified 02/23/22 00:18 Tetracyclines Allergy Rash Verified 02/23/22 00:18 tramadol Allergy loss of Verified 02/23/22 00:18 memory trazodone Allergy memory loss Verified 02/23/22 00:18 venlafaxine Allergy sweating Verified 02/23/22 00:18 potassium sparing diuretics Allergy Uncoded 02/23/22 00:18 Review of Systems Status of ROS Reports: 10 or more systems reviewed and unremarkable except as noted in History and below Const Reports: night sweats; Denies: fever or chills Eyes Denies: change in vision ENMT Denies: throat pain Cardio Denies: chest pain, palpitations or shortness of breath with exertion Resp Denies: shortness of breath, cough or wheezing GI Reports: abdominal pain, nausea and diarrhea; Denies: vomiting Denies: painful urination or urinary frequency Musculo Denies: back pain Integ/Breast Denies: rash or itching Neuro Denies: headache, numbness in extremities or weakness in extremities Endo Denies: excessive urination Allergy/Immuno Denies: wheezing PFSH PFSH Medical History Abnormal LFTs Adjustment disorder with depressed mood Anemia Anxiety Asthma (11/27/12) Asthma Celiac disease Chondromalacia of both patellae Chronic low back pain Chronic sinusitis Cystic acne DDD (degenerative disc disease), cervical Dermatitis Diaphragmatic hernia without mention of obstruction or gangrene Gastroesophageal reflux disease Generalized anxiety disorder Hiatal hernia History of methicillin resistant Staphylococcus aureus infection Hypothyroidism, acquired Major depression, recurrent Methicillin resistant Staphylococcus aureus infection Migraine Mixed hyperlipidemia KEE (nonalcoholic steatohepatitis) Osteoarthritis of patellofemoral joints of both knees Palpitations PTSD (post-traumatic stress disorder) Reflux esophagitis Seasonal allergic rhinitis due to pollen Tachycardia, unspecified Tobacco abuse Surgical History [place] teeth extracted Social History Smoking Status: Current every day smoker What tobacco products do you use: cigarettes How often do you have a drink containing alcohol: monthly or less How often do you have six or more drinks on one occasion: Never AUDIT-C Alcohol total score: 1 Non-prescribed substance use: denies use service: No Exam Narrative: Exam Narrative: Patient is awake and oriented. She is somewhat slow sleepy with mildly slurred speech. Eyes are clear however. Oral cavity moist mucous membranes. Her thought content is appropriate. Neck is supple without lymphadenopathy. Heart with regular rate and rhythm and lungs are clear to auscultation bilaterally. Abdomen is soft but she has tenderness noted in the lower pelvic area. No rebound tenderness. Moving all extremities. Examination of external genitalia within normal limits. She does have a thick mucoid discharge yellowish in color. No significant odor. Cervix does not appear to be abnormal. However cervical motion tenderness is present. Cultures are taken. Bimanual exam shows uterine tenderness. Const: Vital Signs, click to edit/add: Vital Signs - 24 hr 04/07/22 18:01 04/08/22 00:29 04/08/22 02:00 Temperature 97.5 F L Pulse Rate [Right Pulse Oximeter] 80 54 L 61 Respiratory Rate 18 14 16 Blood Pressure [Ri ght Upper Arm] 113/76 95/51 L 101/66 Pulse Oximetry 100 95 95 Oxygen Delivery Me thod Room Air Room Air Room Air 04/07/22 21:30 04/07/22 23:00 04/08/22 03:27 Temperature 98.2 F Pulse Rate [Right Pulse Oximeter] 66 71 66 Respiratory Rate 16 16 16 Blood Pressure [Ri ght Upper Arm] 114/71 107/69 99/59 L Pulse Oximetry 95 96 Oxygen Delivery Me thod Room Air Room Air Documenting provider has reviewed patient's vital signs: yes Course Course Hospital Course: Differential diagnosis includes but is not limited to colitis, PID, UTI, viral gastroenteritis, diverticulitis. Patient will have IV placed and labs to include CBC, comprehensive panel, CRP, urinalysis. CT of the abdomen with contrast ordered at this time. Reevaluation(s) Reevaluation #1: CT the of the abdomen returns and is noted to show inflammation around the urinary bladder as well as the uterus and cervix. Bimanual/pelvic exam accomplished. White count elevated at 12.66 with normal urinalysis LFTs and chemistry panel as well as CRP. Ultrasound pending Vital Signs Vital signs: Initial Vital Signs Temperature 97.5 F L 04/07/22 18:01 Temperature Source Temporal Artery Scan 04/07/22 18:01 Pulse Rate 80 04/07/22 18:01 Respiratory Rate 18 04/07/22 18:01 Blood Pressure 113/76 04/07/22 18:01 Blood Pressure Mean 88 04/07/22 18:01 Blood Pressure Position Sitting 04/07/22 18:01 Pulse Oximetry 100 04/07/22 18:01 Oxygen Delivery Method 04/07/22 18:01 Vital Signs Temperature 97.5 F L 04/07/22 18:01 Pulse Rate 80 04/07/22 18:01 Respiratory Rate 18 04/07/22 18:01 Blood Pressure 113/76 04/07/22 18:01 Pulse Oximetry 100 04/07/22 18:01 Oxygen Delivery Method 04/07/22 18:01 Temperature 98.2 F 04/08/22 03:27 Pulse Rate 66 04/08/22 03:27 Respiratory Rate 16 04/08/22 03:27 Blood Pressure 99/59 L 04/08/22 03:27 Pulse Oximetry 95 04/08/22 02:00 Oxygen Delivery Method 04/08/22 02:00 MDM - Abdominal Pain MDM Narrative Medical decision making narrative: 1. PID-patient has had 2 weeks of lower pelvic pain. She has had some vaginal discharge but did not find this concerning. She has not been sexually active for some time and has no previous history of PID or STI. Patient noted to have hyperemia of uterus and endocervical area as well as bladder. Previous bladder wall thickening is noted from February CT. Given patient's CT findings, cervical motion tenderness I did consult OBGYN. At this time although wet prep is negative as well as gonorrhea and chlamydia we will treat patient for PID. No evidence of fluid on ultrasound. There is possible hemorrhagic cyst noted. Will use 500 mg IM Rocephin as well as 1 dose of doxycycline 100 mg p.o. and Flagyl 500 mg p.o.. Note patient has tetracycline list is an allergy but has successfully taken doxycycline in the past. Patient will continue doxycycline and Flagyl b.i.d. for 14 days. Would like her to fall so follow-up with OBGYN for recheck. 2. Disposition-I did tell patient I do not have an explanation for her mail order is stool at this time. CT of the bowel shows no abnormalities at this time. Hemoglobin is stable. Patient will be discharged home. Recommend having her follow-up with her primary as needed. Would also ask her to return to the ER if she starts developing high fever worsening symptoms vomiting and as needed. Medical Records Attestation: I reviewed the patient's medical records. Lab Data Attestation: I reviewed the patient's lab results. Labs: Lab Results 04/07/22 04/07/22 04/07/22 Range/Units 20:59 21:00 21:00 WBC 12.66 H (4.50-11.00) K/uL RBC 5.04 (4.00-5.20) m/uL Hgb 12.9 (12.0-16.0) gm/dL Hct 40.8 (33.0-51.0) % MCV 81 (80-100) fL MCH 26 (26-34) pg MCHC 32 (32-36) gm/dL RDW Coeff of Tori 14.3 (11.5-15.5) % Plt Count 517 H (140-440) K/uL Neut % (Auto) 58.0 (42.0-72.0) % Lymph % (Auto) 29.5 (20-44) % [place] % (Auto) 5.5 (0.0-11.0) % Eos % (Auto) 6.2 (0.0-7.0) % Baso % (Auto) 0.6 (0.0-3.0) % Neut # (Auto) 7.30 H (1.7-7.0) K/uL Lymph # (Auto) 3.70 H (0.90-2.90) K/uL [place] # (Auto) 0.70 (0.00-0.90) K/UL Eos # (Auto) 0.80 H (0.00-0.50) K/uL Baso # (Auto) 0.10 (0.00-0.30) K/uL Sodium 138 (135-149) mmol/L Potassium 4.1 (3.6-5.1) mmol/L Chloride 104 (96-114) mmol/L Carbon Dioxide 27 (20-32) mmol/L BUN 13 (5-24) mg/dL Creatinine 0.6 (0.5-1.5) mg/dL Estimated Creat Clear 85.59 Estimated GFR 110 ml/min Glucose 84 (60-115) mg/dL Calcium 8.7 (8.4-10.6) mg/dL Magnesium 2.0 (1.5-2.6) mg/dL Total Bilirubin 0.4 (0.1-1.5) mg/dL AST 24 (12-35) U/L ALT 23 (4-35) U/L Alkaline Phosphatase 63 (40-150) U/L C-Reactive Protein 0.6 (0.5-1.0) mg/dL Total Protein 7.6 (6.0-8.3) g/dL Albumin 4.5 (3.3-5.0) g/dL Urine Color Yellow (Yellow) Urine Appearance Cloudy A (Clear) Urine pH 6.5 (5.0-8.5) Ur Specific [place] 1.020 (1.000-1.030) Urine Protein Negative (Negative) Urine Glucose (UA) Negative (Negative) Urine Ketones Negative (Negative) Urine Blood Negative (Negative) Urine Nitrite Negative (Negative) Urine Bilirubin Negative (Negative) Urine Urobilinogen 0.2 (0.2-1.0) Ur Leukocyte Esterase Negative (Negative) Urine RBC 0-2 (0-2) Urine WBC 0-2 (0-5) Urine WBC Clumps None (None) Ur Squamous Epith Cells Many A (None-Few) Urine Bacteria Few A (None) Urine HCG, Qual Negative (Negative) Vaginal Trichomonas (None Seen) Vaginal Yeast (None Seen) Vaginal Clue Cells (None Seen) 04/08/22 Range/Units 01:02 WBC (4.50-11.00) K/uL RBC (4.00-5.20) m/uL Hgb (12.0-16.0) gm/dL Hct (33.0-51.0) % MCV (80-100) fL MCH (26-34) pg MCHC (32-36) gm/dL RDW Coeff of Tori (11.5-15.5) % Plt Count (140-440) K/uL Neut % (Auto) (42.0-72.0) % Lymph % (Auto) (20-44) % [place] % (Auto) (0.0-11.0) % Eos % (Auto) (0.0-7.0) % Baso % (Auto) (0.0-3.0) % Neut # (Auto) (1.7-7.0) K/uL Lymph # (Auto) (0.90-2.90) K/uL [place] # (Auto) (0.00-0.90) K/UL Eos # (Auto) (0.00-0.50) K/uL Baso # (Auto) (0.00-0.30) K/uL Sodium (135-149) mmol/L Potassium (3.6-5.1) mmol/L Chloride (96-114) mmol/L Carbon Dioxide (20-32) mmol/L BUN (5-24) mg/dL Creatinine (0.5-1.5) mg/dL Estimated Creat Clear Estimated GFR ml/min Glucose (60-115) mg/dL Calcium (8.4-10.6) mg/dL Magnesium (1.5-2.6) mg/dL Total Bilirubin (0.1-1.5) mg/dL AST (12-35) U/L ALT (4-35) U/L Alkaline Phosphatase (40-150) U/L C-Reactive Protein (0.5-1.0) mg/dL Total Protein (6.0-8.3) g/dL Albumin (3.3-5.0) g/dL Urine Color (Yellow) Urine Appearance (Clear) Urine pH (5.0-8.5) Ur Specific [place] (1.000-1.030) Urine Protein (Negative) Urine Glucose (UA) (Negative) Urine Ketones (Negative) Urine Blood (Negative) Urine Nitrite (Negative) Urine Bilirubin (Negative) Urine Urobilinogen (0.2-1.0) Ur Leukocyte Esterase (Negative) Urine RBC (0-2) Urine WBC (0-5) Urine WBC Clumps (None) Ur Squamous Epith Cells (None-Few) Urine Bacteria (None) Urine HCG, Qual (Negative) Vaginal Trichomonas No Trichomonas Seen (None Seen) Vaginal Yeast No Yeast Seen (None Seen) Vaginal Clue Cells No Clue Cells Seen (None Seen) Imaging Data CT scan - abdomen: Attestation: I have reviewed the pertinent imaging results. Radiologist's impression: ABDOMEN: Liver: Normal enhancement. No focal suspicious hepatic lesions. Gallbladder and biliary: Normal gallbladder without radiopaque stone. Normal caliber bile ducts. Spleen: Normal size and enhancement. Pancreas: Pancreas divisum. Adrenal glands: Normal adrenal glands. Kidneys and ureters: Normal enhancement. No radio-opaque calculi. No hydroureteronephrosis. Subcentimeter hypodensities are too small to characterize however statistically represent cysts. GI tract: The stomach is relatively decompressed. Normal caliber small and large bowel loops. Normal appendix. Scattered colonic diverticula without diverticulitis. Vascular structures: Patent abdominal aorta and side branches. Lymph nodes: No lymphadenopathy in the abdomen or pelvis by size criteria. Peritoneum: No free air, free fluid, or focal drainable fluid collection. PELVIS: Genitourinary system: Although relatively decompressed there is suggestion of circumferential wall thickening of the urinary bladder. Recommend correlation with urinalysis if not already performed to assess for underlying cystitis. Bilateral ovarian cysts. Uterus is mildly hyperemic. SKELETAL STRUCTURES AND SOFT TISSUES: No suspicious lytic or blastic lesions. IMPRESSION: Other relatively decompressed there is circumferential thickening of the urinary bladder with mucosal hyperemia. Additionally there is hyperemia of the cervix and uterus. Recommend correlation with localized physical exam and urinalysis to assess for urinary tract infection as well as reproductive tract infection. Ultrasound pelvis: Attestation: I have reviewed the pertinent imaging results. Radiologist's impression: Uterus: 9.2 x 5 x 5.6 cm. Normal echotexture of the myometrium noted with no masses are seen. Endometrium: 11 mm. The endometrium appearance is unremarkable on image 19. A tiny endometrial cyst is present near the fundus. Multiple small nabothian cysts are present in the cervix. Right ovary: 4 x 2.7 x 2.4 cm. A complex septated cyst is present within the right ovary measuring 2.5 cm. Arterial blood flow seen within the right ovary. Left ovary: 3.6 x 2.5 x 3 cm. There is a simple cyst present within the left ovary measuring 2.8 x 2.4 cm. Arterial blood flow seen within the left ovary. Cul-de-sac: No significant ascites noted. IMPRESSION: 1. There is a complex cyst in the right ovary that may represent a hemorrhagic cyst. A simple cyst is present within the left ovary. Discharge Plan Discharge Clinical Impression: Acute pelvic inflammatory disease (PID) Patient Disposition: Home, Self-Care Condition: Improved Additional Instructions: 1. Continue doxycycline twice daily for 14 days. 2. Continue Flagyl also known as metronidazole twice daily for 14 days 3. ibuprofen as needed for discomfort. 4. Follow-up with OBGYN next week. Sukhi العراقي spoke with Dr. Carter Enriquez. You can make this appointment by calling [phone]. Return to the emergency room for increasing fever, vomiting, worsening symptoms and as needed. Prescriptions: New doxycycline hyclate 100 mg capsule 100 mg PO BID 14 Days Qty: 28 0RF metronidazole 500 mg tablet 500 mg PO BID 14 Days Qty: 28 0RF No Action cholecalciferol (vitamin D3) 50 mcg (2,000 unit) tablet 2,000 unit PO DAILY fluticasone propion-salmeterol 230-21 mcg/actuation HFA aerosol inhaler 1 inh inhalation BID fluoxetine 20 mg capsule 40 mg PO DAILY lysine 500 mg tablet 500 mg PO Q12H epinephrine 0.3 mg/0.3 mL auto-injector 0.3 mg IM .As Needed PRN montelukast 10 mg tablet 10 mg PO .Bedtime omeprazole 20 mg capsule,delayed release(DR/EC) 20 mg PO BID divalproex 125 mg tablet,delayed release (DR/EC) 500 mg PO QHS levothyroxine 125 mcg tablet 125 mcg PO DAILY fluconazole 150 mg tablet 150 mg PO ONCE tizanidine 2 mg capsule 2 mg PO Q8H PRN gabapentin 300 mg capsule 300 mg PO Q8H buspirone 5 mg tablet 30 mg PO BID Lactobacillus acidophilus Capsule 10 mg PO QDAY vancomycin 125 mg capsule 125 mg PO QID sulfamethoxazole-trimethoprim 800-160 mg tablet 1 tab PO BID melatonin 3 mg capsule 6 mg PO .Bedtime as needed PRN albuterol sulfate 90 mcg/actuation HFA aerosol inhaler 2 inh inhalation Q4H PRN ipratropium-albuterol 0.5 mg-3 mg(2.5 mg base)/3 mL solution for nebulization 3 ml inhalation Q6-8H PRN clonidine HCl 0.1 mg tablet 0.1 mg PO Q12H fexofenadine [Allergy Relief (fexofenadine)] 180 mg tablet 180 mg PO DAILY benzoyl peroxide 10 % cleanser 1 applic topical DAILY mometasone 50 mcg/actuation spray,non-aerosol 2 spray intranasal Q12H Rx Instructions: administer into each nostril hydroxyzine HCl 25 mg tablet 25 mg PO Q6H PRN methylprednisolone [Medrol (Murray)] 4 mg tablets,dose pack See Rx Instructions .ROUTE .COMPLEX Qty: 21 0RF Rx Instructions: orally per package directions Follow Up/Referrals: Bj Noe MD [Primary Care Provider] - Stand Alone Forms: [employer] Info Instructions
[2022-04-07] MEDS: ONDANSETRON 2 MG/ML inj 4 MG IVP (21:00)
[2022-04-07] MEDS: 0.9 % SODIUM CHLORIDE 1000 ml 1,000 ML IV (21:00)
[2022-04-07 21:08] LABS: Basophils Percent Auto 0.6 % (0.0-3.0); Eosinophils Percent Auto 6.2 % (0.0-7.0); Hematocrit 40.8 % (33.0-51.0); Hemoglobin* 12.9 gm/dL (12.0-16.0); Immature Granulocytes Pct Auto 0.2 %; Lymphocytes Percent Auto 29.5 % (20-44); Mean Corpuscular HGB Conc 32 gm/dL (32-36); Mean Corpuscular Hemoglobin 26 pg (26-34); Mean Corpuscular Volume 81 fL (80-100); Monocytes Percent Auto 5.5 % (0.0-11.0); Platelet Count* 517 K/uL (140-440); RDW Coefficient of Variation % 14.3 % (11.5-15.5); Red Blood Count 5.04 m/uL (4.00-5.20); White Blood Count* 12.66 K/uL (4.50-11.00)
[2022-04-07 21:09] LABS: Appearance Urine Cloudy (Clear); Bilirubin Urine Negative (Negative); Blood Urine Negative (Negative); Color Urine Yellow (Yellow); Glucose Urine Negative (Negative); Ketones Urine Negative (Negative); Leukocyte Esterase Urine Negative (Negative); Nitrite Urine Negative (Negative); Protein Urine Negative (Negative); Urobilinogen Urine 0.2 (0.2-1.0); pH Urine 6.5 (5.0-8.5)
[2022-04-07 21:12] LABS: Slide Review Reflex No
[2022-04-07 21:13] LABS: Ur HCG Qualitative* Negative (Negative)
[2022-04-07 21:30] VITALS: BP 114/71; PULSE 66; RESP 16; O2SAT 95
[2022-04-07 21:34] LABS: Albumin* 4.5 g/dL (3.3-5.0); Chloride* 104 mmol/L (96-114)
[2022-04-07 21:35] LABS: Potassium* 4.1 mmol/L (3.6-5.1); Sodium* 138 mmol/L (135-149)
[2022-04-07 21:37] LABS: Alkaline Phosphatase* 63 U/L (40-150); Aspartate Amino Transferase* 24 U/L (12-35); Bilirubin Total* 0.4 mg/dL (0.1-1.5); Carbon Dioxide* 27 mmol/L (20-32); Creatinine* 0.6 mg/dL (0.5-1.5); Est. Creatinine Clearance* 85.59; Estimated Glomerular Filt Rate 110 ml/min; Total Protein* 7.6 g/dL (6.0-8.3)
[2022-04-07 21:38] LABS: Alanine Aminotransferase* 23 U/L (4-35); Blood Urea Nitrogen* 13 mg/dL (5-24); Calcium* 8.7 mg/dL (8.4-10.6); Glucose* 84 mg/dL (60-115)
[2022-04-07 21:40] LABS: C Reactive Protein* 0.6 mg/dL (0.5-1.0)
[2022-04-07 21:47] LABS: Bacteria Urine Few; RBC Urine 0-2 (0-2); Squamous Epithelial Cell Urine Many (None-Few); WBC Urine 0-2 (0-5)
--- NOTE | 2022-04-07 21:49 | CRLHL7_ITS ---
For Patients: As a result of the Century Cures Act, medical imaging exams and procedure reports are released immediately into your electronic medical record. You may view this report before your referring provider. If you have questions, please contact your health care provider. INDICATION: Lower abdominal pain with elevated white count TECHNIQUE: CT abdomen and pelvis acquired with 100 cc Isovue 370 IV contrast. COMPARISON: February 2022. FINDINGS: Lower chest: Bibasilar subsegmental atelectasis. ABDOMEN: Liver: Normal enhancement. No focal suspicious hepatic lesions. Gallbladder and biliary: Normal gallbladder without radiopaque stone. Normal caliber bile ducts. Spleen: Normal size and enhancement. Pancreas: Pancreas divisum. Adrenal glands: Normal adrenal glands. Kidneys and ureters: Normal enhancement. No radio-opaque calculi. No hydroureteronephrosis. Subcentimeter hypodensities are too small to characterize however statistically represent cysts. GI tract: The stomach is relatively decompressed. Normal caliber small and large bowel loops. Normal appendix. Scattered colonic diverticula without diverticulitis. Vascular structures: Patent abdominal aorta and side branches. Lymph nodes: No lymphadenopathy in the abdomen or pelvis by size criteria. Peritoneum: No free air, free fluid, or focal drainable fluid collection. PELVIS: Genitourinary system: Although relatively decompressed there is suggestion of circumferential wall thickening of the urinary bladder. Recommend correlation with urinalysis if not already performed to assess for underlying cystitis. Bilateral ovarian cysts. Uterus is mildly hyperemic. SKELETAL STRUCTURES AND SOFT TISSUES: No suspicious lytic or blastic lesions. IMPRESSION: Other relatively decompressed there is circumferential thickening of the urinary bladder with mucosal hyperemia. Additionally there is hyperemia of the cervix and uterus. Recommend correlation with localized physical exam and urinalysis to assess for urinary tract infection as well as reproductive tract infection. Please note that all CT scans at this facility use dose modulation, iterative reconstruction, and/or weight-based dosing when appropriate to reduce radiation dose to as low as reasonably achievable. Dictated by Panchito Montelongo MD @ 04/07/2022 11:13:57 PM (Electronically Signed)
[2022-04-07 23:00] VITALS: BP 107/69; PULSE 71; RESP 16; O2SAT 96
--- OUTSIDE RECORDS SUMMARY | 2022-04-07 23:32 | XMS_ITS ---
:1970 Author Organization [facility] - Primary Address [address] [place] [address] Care Team Providers Name Role Phone Jared Pratt Unavailable Unavailable PROBLEMS Type Condition ICD9-CM Code DAI26-OT Code Onset Condition SNO MED Code Dates Status Problem Headache, R51.9 Active [id number] unspecified Problem Post-traumatic F43.12 Active 66839 003 stress disorder, chronic ALLERGIES Substance Reaction Event Type Date Status trazodone memory problem Drug Allergy Feb, Active Percocet stomach upset Drug Allergy Feb, Active hydrocodone itching Drug Allergy Feb, Active ENCOUNTERS Encounter Location Date Diagnosis [facility] 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 - [address] 5pm Jan, Post -traumatic stress Primary [place], [place] disorder, cyber analyst gabbie [id number] and Headache, un specified R51.9 IMMUNIZATIONS No Known Immunizations SOCIAL HISTORY Qualifiers Date Current Smoker REASON FOR REFERRAL FUNCTIONAL STATUS PLAN OF CARE Activity Details Follow Up 1 Year Reason: Future Appointment Provider Name:Jared Pratt , 2022-12-22 11:45:00 AM, [address] [facility], 5pm, [place], [address], VITAL SIGNS MEDICATIONS Medication Instructions Dosage Frequency Start End Duration Statu s Date Date divalproex sodium orally 3 times 1 tab(s) 8h 30 day (s) Active 500 mg a day Wixela Inhub 100 inhaled 2 times 1 INH 12h 30 day( s) Active mcg-50 mcg a day tiZANidine 2 mg orally every 8 2 tab(s) 8h 30 day(s ) Active hours montelukast 10 mg orally once a 1 tab(s) 24h 30 day( s) Active day primidone 50 mg orally 1 times 1 tab(s) Active a day FLUoxetine 40 mg orally once a 1 cap(s) 24h 30 day(s ) Active day cloNIDine 0.1 mg orally 2 times 1 tab(s) 12h 30 day( s) Active a day levothyroxine 125 orally once a 1 tab(s) 24h Active mcg (0.125 mg) day gabapentin 300 mg orally 3 times 1 cap(s) 8h 30 day (s) Active a day busPIRone 30 mg orally 2 times 1 tab(s) 12h 30 day(s ) Not-Takin a day g PROCEDURES No Known procedures RESULTS No Results REASON FOR VISIT cannabis phone recert, PTSD, Cannabis Recert, PTSD, Chronic headaches, recertPHONE, PTSD, Migraine ,Sleep apnea, cannabis recert phone, cannabis cert, PTSD, Migraine , Sleep apnea Insurance Providers [facility] Member Patient Patient Patient Patient Patient Subscriber Subscriber Subscriber Group Insurance Plan Plan Plan Plan ID Relationship Address Phone Name Date of ID Name Date of No Type Insurance Insurance Insurance Coverage to Subscriber Address Phone Name Dates [employer] [phone] Hum[employer] self Korina Ramsey [id number] Medicare [id number] Medicare Brittany 01 [facility] [id number] Medicare National [phone] Medicare self Korina Ramsey [phone] [id number] Part B [facility] 40 Part B [employer] CLAIM [address] [place] [address]
--- OUTSIDE RECORDS SUMMARY | 2022-04-07 23:32 | XMS_ITS ---
:1970 Author Organization [facility] - Primary Address [address] [place] [address] Care Team Providers Name Role Phone Jared Pratt Unavailable Unavailable PROBLEMS Type Condition ICD9-CM Code WBF22-YY Code Onset Condition SNO MED Code Dates Status Problem Headache, R51.9 Active [id number] unspecified Problem Post-traumatic F43.12 Active 15820 003 stress disorder, chronic ALLERGIES Substance Reaction Event Type Date Status trazodone memory problem Drug Allergy Feb, Active Percocet stomach upset Drug Allergy Feb, Active hydrocodone itching Drug Allergy Feb, Active ENCOUNTERS Encounter Location Date Diagnosis [facility] 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 - [address] 5pm Jan, Post -traumatic stress Primary [place], [place] disorder, chronic care nurse gabbie F43.12 [phone] and Headache, un specified R51.9 [facility] - [address] 5pm May, Post -traumatic stress Primary [place], [place] disorder, chronic care nurse gabbie F43.12 [phone] [facility] - [address] 5pm Jan, Post -traumatic stress Primary [place], [place] disorder, chronic care nurse gabbie F43.12 [phone] and Headache, un specified R51.9 IMMUNIZATIONS No Known Immunizations SOCIAL HISTORY Qualifiers Date Current Smoker REASON FOR REFERRAL FUNCTIONAL STATUS PLAN OF CARE Activity Details Follow Up 1 Year Reason: Future Appointment Provider Name:Jared Pratt , 2022-12-22 11:45:00 AM, [address], 5pm, [place], [address], VITAL SIGNS MEDICATIONS Medication Instructions Dosage Frequency [...] PTSD, Migraine , Sleep apnea Insurance Providers [facility] Member Patient Patient Patient Patient Patient Subscriber Subscriber Subscriber Group Insurance Plan Plan Plan Plan ID Relationship Address Phone Name Date of ID Name Date of No Type Insurance Insurance Insurance Coverage to Subscriber Address Phone Name Dates Medicare National [phone] Medicare self Korina Ramsey [id number] Part B Government 40 Part B [employer] CLAIM [address] [place] [address] [employer] [phone] Hum[employer] self Korina Ramsey [id number] Medicare [id number] Medicare Brittany [address] [place] [address]
[2022-04-08 00:29] VITALS: BP 95/51; PULSE 54; RESP 14; O2SAT 95
--- NOTE | 2022-04-08 00:49 | US_ITS ---
Final Report Patient: SHIMA VENCES Facility:?[facility] Patient ID:?[id number] Site Patient ID:?[id number]. Site :?1970 Study:?US Pelvis -04/08/2022 1:42:15 AM Ordering Physician:?UNKNOWN UNKNOWN Final Report: INDICATION: Pelvic pain TECHNIQUE: Ultrasound pelvis transvaginal. Endovaginal imaging was performed to better visualize the endometrium and ovaries. Real-time balderas scale sonographic images with spectral and color Doppler imaging of the ovaries were obtained. COMPARISON: None FINDINGS: Uterus: 9.2 x 5 x 5.6 cm. Normal echotexture of the myometrium noted with no masses are seen. Endometrium: 11 mm. The endometrium appearance is unremarkable on image 19. A tiny endometrial cyst is present near the fundus. Multiple small nabothian cysts are present in the cervix. Right ovary: 4 x 2.7 x 2.4 cm. A complex septated cyst is present within the right ovary measuring 2.5 cm. Arterial blood flow seen within the right ovary. Left ovary: 3.6 x 2.5 x 3 cm. There is a simple cyst present within the left ovary measuring 2.8 x 2.4 cm. Arterial blood flow seen within the left ovary. Cul-de-sac: No significant ascites noted. IMPRESSION: 1. There is a complex cyst in the right ovary that may represent a hemorrhagic cyst. A simple cyst is present within the left ovary. Dictated by Hilario Peralta MD @ 04/08/2022 1:55:56 AM Dictated by: Hilario Peralta MD @ 04/08/2022 01:56:05 (Electronic Signature)
[2022-04-08 01:27] LABS: Clue Cells No Clue Cells Seen (None Seen); Trichomonas No Trichomonas Seen (None Seen); Yeast No Yeast Seen (None Seen)
[2022-04-08 02:00] VITALS: BP 101/66; PULSE 61; RESP 16; O2SAT 95
[2022-04-08] MEDS: cefTRIAXone 1 GM VIAL 500 GM IM (03:14)
[2022-04-08] MEDS: LIDOCAINE 1% 5 ml (pf) 5 ML VIAL 2.1 ML IM (03:14)
[2022-04-08] MEDS: metroNIDAZOLE 500 MG TABLET PO (03:15)
[2022-04-08] MEDS: DOXYCYCLINE HYCLATE 100 MG CAPSULE PO (03:15)
[2022-04-08 03:27] VITALS: BP 99/59; PULSE 66; RESP 16; TEMP 36.8
[2022-04-08 04:27] LABS: Chlamydia DNA Amplified* NOT DETECTED (No Detected); GC DNA Amplified* NOT DETECTED (No Detected)
== END 2022-04-08 03:28 | disposition home or self-care (01) ==
PROVIDERS: Emergency Provider Family Medicine; PCP Family Medicine
DX: N73.9 Female pelvic inflammatory disease, unspecified (principal)
CPT/HCPCS: 36415; 74177; 76830; 80053; 81001; 81025; 83735; 85025; 86140; 87045; 87046; 87086; 87210; 87427; 87491; 87591; 93976; 96372; 96374; 99284; 99285; A9270; J0696; J2405; J7030; Q9967

== ENCOUNTER 2022-05-20 21:48 | Emergency (ER) | payer OTHER, SELFPAY ==
[2022-05-20 22:02] VITALS: BP 116/66; PULSE 68; RESP 16; TEMP 36.4; O2SAT 98; BMI 26.5
--- NOTE | 2022-05-20 22:13 | ED_ITS ---
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 She states that she often requires both oral clindamycin and prednisone to get better. Pt is a chronic patient for this condition with [facility]. Pt states that the symptoms which include mild dyscomfort, flaking and itching have been present this time only for the past 2 days. No fever or chills. Dermatitis is localized to the scalp. Related Data Home Medications Medication Instructions Recorded Confirmed Lactobacillus acidophilus 10 mg PO QDAY 12/23/21 12/23/21 buspirone 5 mg tablet 30 mg PO BID 12/23/21 02/22/22 cholecalciferol (vitamin D3) 50 2,000 unit PO DAILY 12/23/21 12/23/21 mcg (2,000 unit) tablet divalproex 125 mg tablet,delayed 500 mg PO QHS 12/23/21 02/22/22 release epinephrine 0.3 mg/0.3 mL 0.3 mg IM .As Needed PRN 12/23/21 02/22/22 injection, auto-injector fluconazole 150 mg tablet 150 mg PO ONCE 12/23/21 12/23/21 fluoxetine 20 mg capsule 40 mg PO DAILY 12/23/21 02/22/22 fluticasone propionate 230 1 inh inhalation BID 12/23/21 02/22/22 mcg-salmeterol 21 mcg/actuation HFA inhaler gabapentin 300 mg capsule 300 mg PO Q8H 12/23/21 02/22/22 levothyroxine 125 mcg tablet 125 mcg PO DAILY 12/23/21 02/22/22 lysine 500 mg tablet 500 mg PO Q12H 12/23/21 02/22/22 melatonin 3 mg capsule 6 mg PO .Bedtime as needed PRN 12/23/21 02/22/22 montelukast 10 mg tablet 10 mg PO .Bedtime 12/23/21 02/22/22 omeprazole 20 mg capsule,delayed 20 mg PO BID 12/23/21 02/22/22 release tizanidine 2 mg capsule 2 mg PO Q8H PRN 12/23/21 02/22/22 albuterol sulfate 90 mcg/actuation 2 inh inhalation Q4H PRN 02/22/22 02/22/22 aerosol inhaler benzoyl peroxide 10 % topical 1 applic topical DAILY 02/22/22 02/22/22 cleanser clonidine HCl 0.1 mg tablet 0.1 mg PO Q12H 02/22/22 02/22/22 fexofenadine 180 mg tablet 180 mg PO DAILY 02/22/22 02/22/22 (Allergy Relief (fexofenadine)) hydroxyzine HCl 25 mg tablet 25 mg PO Q6H PRN 02/22/22 02/22/22 ipratropium 0.5 mg-albuterol 3 mg 3 ml inhalation Q6-8H PRN 02/22/22 02/22/22 (2.5 mg base)/3 mL nebulization soln mometasone 50 mcg/actuation nasal 2 spray intranasal Q12H 02/22/22 02/22/22 spray Previous Rx's Medication Instructions Recorded doxycycline hyclate 100 mg capsule 100 mg PO BID 14 days #28 caps 04/08/22 metronidazole 500 mg tablet 500 mg PO BID 14 days #28 tabs 04/08/22 clindamycin HCl 150 mg capsule 150 mg PO TID #21 caps 05/20/22 prednisone 20 mg tablet 20 mg PO BID #10 tabs 05/20/22 Allergies Allergy/AdvReac Type Severity Reaction Status Date / Time hydrocodone Allergy Mild Rash Verified 02/23/22 00:18 hydromorphone [From Dilaudid] Allergy Mild itching Verified 02/23/22 00:18 pollen extracts Allergy Mild itching Verified 02/23/22 00:18 sulfamethoxazole Allergy Mild Rash Verified 02/23/22 00:18 [From Bactrim] trimethoprim [From Bactrim] Allergy Mild Rash Verified 02/23/22 00:18 wheat Allergy Mild gluten Verified 02/23/22 00:18 intolerance quetiapine [From Seroquel] Allergy Unknown Verified 02/23/22 00:18 acetaminophen Allergy Verified 02/23/22 00:18 oxycodone Allergy Verified 02/23/22 00:18 prednisone Allergy itching Verified 02/23/22 00:18 Tetracyclines Allergy Rash Verified 02/23/22 00:18 tramadol Allergy loss of Verified 02/23/22 00:18 memory trazodone Allergy memory loss Verified 02/23/22 00:18 venlafaxine Allergy sweating Verified 02/23/22 00:18 potassium sparing diuretics Allergy Uncoded 02/23/22 00:18 Review of Systems Status of ROS: Reports: 10 or more systems reviewed and unremarkable except as noted in History and below [facility] Medical History Abnormal LFTs Adjustment disorder with depressed mood Anemia Anxiety Asthma (11/27/12) Asthma Celiac disease Chondromalacia of both patellae Chronic low back pain Chronic sinusitis Cystic acne DDD (degenerative disc disease), cervical Dermatitis Diaphragmatic hernia without mention of obstruction or gangrene Gastroesophageal reflux disease Generalized anxiety disorder Hiatal hernia History of methicillin resistant Staphylococcus aureus infection Hypothyroidism, acquired Major depression, recurrent Methicillin resistant Staphylococcus aureus infection Migraine Mixed hyperlipidemia KEE (nonalcoholic steatohepatitis) Osteoarthritis of patellofemoral joints of both knees Palpitations PTSD (post-traumatic stress disorder) Reflux esophagitis Seasonal allergic rhinitis due to pollen Tachycardia, unspecified Tobacco abuse Surgical History Engelhard teeth extracted Social History Smoking Status: Current every day smoker What tobacco products do you use: cigarettes How often do you have a drink containing alcohol: monthly or less How often do you have six or more drinks on one occasion: Never AUDIT-C Alcohol total score: 1 Non-prescribed substance use: denies use service: Yes Exam Narrative: Exam Narrative: EXAM GENERAL: Patient appears comfortable and well. EYES: No scleral icterus. ENT: Tympanic membranes and oropharynx normal. THYROID: no thyroid nodules or thyromegaly. LYMPH: No supraclavicular or cervical lymphadenopathy. SKIN: Visible skin seen during exam normal or with benign process only. with the exeption of a dry scaling dermatitis of the scalp which is patchy and erythematous EXT: No dependent lower extremity pedal edema. HEART: Regular rate and rhythm with no murmurs, rubs, or gallops. LUNGS: Clear to auscultation bilaterally with no crackles or wheezes. ABD: Soft, non tender, non distended. PSYCH: Good eye contact, speech is not pressured. Const: Vital Signs, click to edit/add: Vital Signs - 24 hr 05/20/22 22:02 Temperature 97.6 F Pulse Rate [Left P ulse Oximeter] 68 Respiratory Rate 16 Blood Pressure [Ri ght Upper Arm] 116/66 Pulse Oximetry 98 Oxygen Delivery Me thod Room Air Course Course Hospital Course: Pt seen and examined. Vital Signs Vital signs: Initial Vital Signs Temperature 97.6 F 05/20/22 22:02 Temperature Source Temporal Artery Scan 05/20/22 22:02 Pulse Rate 68 05/20/22 22:02 Respiratory Rate 16 05/20/22 22:02 Blood Pressure 116/66 05/20/22 22:02 Blood Pressure Mean 82 05/20/22 22:02 Pulse Oximetry 98 05/20/22 22:02 Oxygen Delivery Method 05/20/22 22:02 Vital Signs Temperature 97.6 F 05/20/22 22:02 Pulse Rate 68 05/20/22 22:02 Respiratory Rate 16 05/20/22 22:02 Blood Pressure 116/66 05/20/22 22:02 Pulse Oximetry 98 05/20/22 22:02 Oxygen Delivery Method 05/20/22 22:02 Temperature 97.6 F 05/20/22 22:02 Pulse Rate 68 05/20/22 22:02 Respiratory Rate 16 05/20/22 22:02 Blood Pressure 116/66 05/20/22 22:02 Pulse Oximetry 98 05/20/22 22:02 Oxygen Delivery Method 05/20/22 22:02 MDM - Skin/Abscess/Foreign Bdy MDM Narrative Medical decision making narrative: Pt who has a complex history of MRSA scalp dermatitis presents with return of chronic symptoms. Pt normally is treated with a short prescription of clndamycin and prednisone. Pt has no other findings on exam and normal vital signs. Will repeat the above course with dermatology follow up. Differential Diagnosis Differential diagnosis: Likely abscess of skin or subcutaneous tissue, viral exanthem, dermatophytosis, urticaria, allergic reaction to drug, cellulitis, eczema, insect bites and contact dermatitis Medical Records Attestation: I reviewed the patient's medical records. Discharge Plan Discharge Clinical Impression: Dermatitis Patient Disposition: Home, Self-Care Condition: Stable Instructions: Dermatitis (ED) Additional Instructions: Medications as prescribed Follow up with Dermatology Activity Level: No Restrictions Discharge Diet: Regular Prescriptions: New clindamycin HCl 150 mg capsule 150 mg PO TID Qty: 21 0RF prednisone 20 mg tablet 20 mg PO BID Qty: 10 0RF No Action cholecalciferol (vitamin D3) 50 mcg (2,000 unit) tablet 2,000 unit PO DAILY fluticasone propion-salmeterol 230-21 mcg/actuation HFA aerosol inhaler 1 inh inhalation BID fluoxetine 20 mg capsule 40 mg PO DAILY lysine 500 mg tablet 500 mg PO Q12H epinephrine 0.3 mg/0.3 mL auto-injector 0.3 mg IM .As Needed PRN montelukast 10 mg tablet 10 mg PO .Bedtime omeprazole 20 mg capsule,delayed release(DR/EC) 20 mg PO BID divalproex 125 mg tablet,delayed release (DR/EC) 500 mg PO QHS levothyroxine 125 mcg tablet 125 mcg PO DAILY fluconazole 150 mg tablet 150 mg PO ONCE tizanidine 2 mg capsule 2 mg PO Q8H PRN gabapentin 300 mg capsule 300 mg PO Q8H buspirone 5 mg tablet 30 mg PO BID Lactobacillus acidophilus Capsule 10 mg PO QDAY melatonin 3 mg capsule 6 mg PO .Bedtime as needed PRN albuterol sulfate 90 mcg/actuation HFA aerosol inhaler 2 inh inhalation Q4H PRN ipratropium-albuterol 0.5 mg-3 mg(2.5 mg base)/3 mL solution for nebulization 3 ml inhalation Q6-8H PRN clonidine HCl 0.1 mg tablet 0.1 mg PO Q12H fexofenadine [Allergy Relief (fexofenadine)] 180 mg tablet 180 mg PO DAILY benzoyl peroxide 10 % cleanser 1 applic topical DAILY mometasone 50 mcg/actuation spray,non-aerosol 2 spray intranasal Q12H Rx Instructions: administer into each nostril hydroxyzine HCl 25 mg tablet 25 mg PO Q6H PRN doxycycline hyclate 100 mg capsule 100 mg PO BID 14 Days Qty: 28 0RF metronidazole 500 mg tablet 500 mg PO BID 14 Days Qty: 28 0RF Follow Up/Referrals: Bj Noe MD [Primary Care Provider] - Stand Alone Forms: [facility] Info Instructions
== END 2022-05-20 22:50 | disposition home or self-care (01) ==
LOC: ED 22:48
PROVIDERS: Emergency Provider Internal Medicine; PCP Family Medicine
DX: L21.9 Seborrheic dermatitis, unspecified (principal)
CPT/HCPCS: 99283

== ENCOUNTER 2022-05-29 13:30 | Emergency (ER) | payer OTHER, SELFPAY ==
[2022-05-29 13:33] VITALS: BP 148/96; PULSE 89; RESP 16; TEMP 36.3; O2SAT 98; BMI 26.5
--- NOTE | 2022-05-29 13:43 | ED.GENADULT ---
HPI - General Adult General Time Seen by Provider: 13:43 Date Seen: 05/29/22 Chief complaint: Head Injury/Pain Stated complaint: Staph Infection Time Seen by Provider: 05/29/22 13:35 Source: patient, RN notes reviewed and old records reviewed Mode of arrival: ambulatory Limitations: no limitations History of Present Illness HPI narrative: Patient is a 51-year-old female coming in with concern of an infection in her scalp. She states she is seen the exterminator helper termite and they just give her shampoo and topical treatment. She has mupirocin that she is putting on some of the lesions. Her mom was wondering if it could be shingles. She has these lesions distributed throughout her scalp, not in a dermatome. Reviewed that this is not shingles. These scab over, or painful for her. No fever. She was just seen recently in the ED, was given clindamycin and prednisone. She feels the prednisone helps. Reviewed with her that if this is a eczema/MRSA type issue, would not feel that prednisone would be indicated. She is picking at the lesions in her scalp while I talked to her. She still has 1 clindamycin left. She feels overall they are better. She has tolerated doxycycline in the past. She has felt that that has worked for her scalp rash. Related Data Home Medications Medication Instructions Recorded Confirmed Lactobacillus acidophilus 10 mg PO QDAY 12/23/21 12/23/21 buspirone 5 mg tablet 30 mg PO BID 12/23/21 02/22/22 cholecalciferol (vitamin D3) 50 2,000 unit PO DAILY 12/23/21 12/23/21 mcg (2,000 unit) tablet divalproex 125 mg tablet,delayed 500 mg PO QHS 12/23/21 02/22/22 release epinephrine 0.3 mg/0.3 mL 0.3 mg IM .As Needed PRN 12/23/21 02/22/22 injection, auto-injector fluconazole 150 mg tablet 150 mg PO ONCE 12/23/21 12/23/21 fluoxetine 20 mg capsule 40 mg PO DAILY 12/23/21 02/22/22 fluticasone propionate 230 1 inh inhalation BID 12/23/21 02/22/22 mcg-salmeterol 21 mcg/actuation HFA inhaler gabapentin 300 mg capsule 300 mg PO Q8H 12/23/21 02/22/22 levothyroxine 125 mcg tablet 125 mcg PO DAILY 12/23/21 02/22/22 lysine 500 mg tablet 500 mg PO Q12H 12/23/21 02/22/22 melatonin 3 mg capsule 6 mg PO .Bedtime as needed PRN 12/23/21 02/22/22 montelukast 10 mg tablet 10 mg PO .Bedtime 12/23/21 02/22/22 omeprazole 20 mg capsule,delayed 20 mg PO BID 12/23/21 02/22/22 release tizanidine 2 mg capsule 2 mg PO Q8H PRN 12/23/21 02/22/22 albuterol sulfate 90 mcg/actuation 2 inh inhalation Q4H PRN 02/22/22 02/22/22 aerosol inhaler benzoyl peroxide 10 % topical 1 applic topical DAILY 02/22/22 02/22/22 cleanser clonidine HCl 0.1 mg tablet 0.1 mg PO Q12H 02/22/22 02/22/22 fexofenadine 180 mg tablet 180 mg PO DAILY 02/22/22 02/22/22 (Allergy Relief (fexofenadine)) hydroxyzine HCl 25 mg tablet 25 mg PO Q6H PRN 02/22/22 02/22/22 ipratropium 0.5 mg-albuterol 3 mg 3 ml inhalation Q6-8H PRN 02/22/22 02/22/22 (2.5 mg base)/3 mL nebulization soln mometasone 50 mcg/actuation nasal 2 spray intranasal Q12H 02/22/22 02/22/22 spray Previous Rx's Medication Instructions Recorded doxycycline hyclate 100 mg capsule 100 mg PO BID 14 days #28 caps 04/08/22 metronidazole 500 mg tablet 500 mg PO BID 14 days #28 tabs 04/08/22 clindamycin HCl 150 mg capsule 150 mg PO TID #21 caps 05/20/22 prednisone 20 mg tablet 20 mg PO BID #10 tabs 05/20/22 doxycycline monohydrate 100 mg 100 mg PO BID #20 caps 05/29/22 capsule Allergies Allergy/AdvReac Type Severity Reaction Status Date / Time hydrocodone Allergy Mild Rash Verified 05/29/22 13:38 hydromorphone [From Dilaudid] Allergy Mild itching Verified 05/29/22 13:38 pollen extracts Allergy Mild itching Verified 05/29/22 13:38 sulfamethoxazole Allergy Mild Rash Verified 05/29/22 13:38 [From Bactrim] trimethoprim [From Bactrim] Allergy Mild Rash Verified 05/29/22 13:38 wheat Allergy Mild gluten Verified 05/29/22 13:38 intolerance quetiapine [From Seroquel] Allergy Unknown Verified 05/29/22 13:38 acetaminophen Allergy Verified 05/29/22 13:38 oxycodone Allergy Verified 05/29/22 13:38 prednisone Allergy itching Verified 05/29/22 13:38 Tetracyclines Allergy Rash Verified 05/29/22 13:38 tramadol Allergy loss of Verified 05/29/22 13:38 memory trazodone Allergy memory loss Verified 05/29/22 13:38 venlafaxine Allergy sweating Verified 05/29/22 13:38 potassium sparing diuretics Allergy Uncoded 02/23/22 00:18 PFSH PFSH Medical History Abnormal LFTs Adjustment disorder with depressed mood Anemia Anxiety Asthma (11/27/12) Asthma Celiac disease Chondromalacia of both patellae Chronic low back pain Chronic sinusitis Cystic acne DDD (degenerative disc disease), cervical Dermatitis Diaphragmatic hernia without mention of obstruction or gangrene Gastroesophageal reflux disease Generalized anxiety disorder Hiatal hernia History of methicillin resistant Staphylococcus aureus infection Hypothyroidism, acquired Major depression, recurrent Methicillin resistant Staphylococcus aureus infection Migraine Mixed hyperlipidemia KEE (nonalcoholic steatohepatitis) Osteoarthritis of patellofemoral joints of both knees Palpitations PTSD (post-traumatic stress disorder) Reflux esophagitis Seasonal allergic rhinitis due to pollen Tachycardia, unspecified Tobacco abuse Surgical History [place] teeth extracted Social History Smoking Status: Current every day smoker What tobacco products do you use: cigarettes How often do you have a drink containing alcohol: monthly or less How often do you have six or more drinks on one occasion: Never AUDIT-C Alcohol total score: 1 Non-prescribed substance use: denies use service: Yes Exam Const: Vital Signs, click to edit/add: Vital Signs - 24 hr 05/29/22 13:33 Temperature 97.3 F L Pulse Rate [Pulse Oximeter] 89 Respiratory Rate 16 Blood Pressure [Ri ght Upper Arm] 148/96 H Pulse Oximetry 98 Oxygen Delivery Me thod Room Air Has erythematous based lesions with a yellowish crusting. Some have scabs. It is compliant in the scalp. Does look to be almost like an impetigo like rash or lesions in her scalp. I do not see any vesicles, can feel no fluctuance to any of these. Hair is matted down with some of the areas with the yellowish scabbing/scaling. Documenting provider has reviewed patient's vital signs: yes Course Vital Signs Vital signs: Initial Vital Signs Temperature 97.3 F L 05/29/22 13:33 Temperature Source Temporal Artery Scan 05/29/22 13:33 Pulse Rate 89 05/29/22 13:33 Pulse Rhythm 05/29/22 13:33 Pulse Strength 3+ Normal 05/29/22 13:33 Respiratory Rate 16 05/29/22 13:33 Blood Pressure 148/96 H 05/29/22 13:33 Blood Pressure Mean 113 05/29/22 13:33 Pulse Oximetry 98 05/29/22 13:33 Oxygen Delivery Method 05/29/22 13:33 Vital Signs Temperature 97.3 F L 05/29/22 13:33 Pulse Rate 89 05/29/22 13:33 Respiratory Rate 16 05/29/22 13:33 Blood Pressure 148/96 H 05/29/22 13:33 Pulse Oximetry 98 05/29/22 13:33 Oxygen Delivery Method 05/29/22 13:33 Temperature 97.3 F L 05/29/22 13:33 Pulse Rate 89 05/29/22 13:33 Respiratory Rate 16 05/29/22 13:33 Blood Pressure 148/96 H 05/29/22 13:33 Pulse Oximetry 98 05/29/22 13:33 Oxygen Delivery Method 05/29/22 13:33 Discharge Plan Discharge Clinical Impression: Scaly patch rash Patient Disposition: Home, Self-Care Condition: Stable Instructions: Eczema (ED), Dermatitis (ED) Additional Instructions: Can try switching to doxycycline. Continue with the shampoo and the topical mupirocin as given by the exterminator helper termite. Do recommend that you follow-up with Dermatology, [facility] if [facility] desire to do so. Activity Level: Activity as Tolerated Prescriptions: New doxycycline monohydrate 100 mg capsule 100 mg PO BID Qty: 20 0RF No Action cholecalciferol (vitamin D3) 50 mcg (2,000 unit) tablet 2,000 unit PO DAILY fluticasone propion-salmeterol 230-21 mcg/actuation HFA aerosol inhaler 1 inh inhalation BID fluoxetine 20 mg capsule 40 mg PO DAILY lysine 500 mg tablet 500 mg PO Q12H epinephrine 0.3 mg/0.3 mL auto-injector 0.3 mg IM .As Needed PRN montelukast 10 mg tablet 10 mg PO .Bedtime omeprazole 20 mg capsule,delayed release(DR/EC) 20 mg PO BID divalproex 125 mg tablet,delayed release (DR/EC) 500 mg PO QHS levothyroxine 125 mcg tablet 125 mcg PO DAILY fluconazole 150 mg tablet 150 mg PO ONCE tizanidine 2 mg capsule 2 mg PO Q8H PRN gabapentin 300 mg capsule 300 mg PO Q8H buspirone 5 mg tablet 30 mg PO BID Lactobacillus acidophilus Capsule 10 mg PO QDAY melatonin 3 mg capsule 6 mg PO .Bedtime as needed PRN albuterol sulfate 90 mcg/actuation HFA aerosol inhaler 2 inh inhalation Q4H PRN ipratropium-albuterol 0.5 mg-3 mg(2.5 mg base)/3 mL solution for nebulization 3 ml inhalation Q6-8H PRN clonidine HCl 0.1 mg tablet 0.1 mg PO Q12H fexofenadine [Allergy Relief (fexofenadine)] 180 mg tablet 180 mg PO DAILY benzoyl peroxide 10 % cleanser 1 applic topical DAILY mometasone 50 mcg/actuation spray,non-aerosol 2 spray intranasal Q12H Rx Instructions: administer into each nostril hydroxyzine HCl 25 mg tablet 25 mg PO Q6H PRN doxycycline hyclate 100 mg capsule 100 mg PO BID 14 Days Qty: 28 0RF metronidazole 500 mg tablet 500 mg PO BID 14 Days Qty: 28 0RF clindamycin HCl 150 mg capsule 150 mg PO TID Qty: 21 0RF prednisone 20 mg tablet 20 mg PO BID Qty: 10 0RF Stand Alone Forms: [facility] Info Instructions
== END 2022-05-29 14:25 | disposition home or self-care (01) ==
PROVIDERS: Emergency Provider Family Medicine
DX: L21.9 Seborrheic dermatitis, unspecified (principal)
CPT/HCPCS: 87070; 99282

== ENCOUNTER 2022-06-18 12:29 | Emergency (ER) | payer OTHER, SELFPAY ==
[2022-06-18 12:36] VITALS: BP 127/68; PULSE 82; RESP 16; TEMP 36.3; O2SAT 99; BMI 24.9
--- NOTE | 2022-06-18 12:44 | ED.SKABFB ---
HPI - Skin/Abscess/Foreign Bdy General Time Seen by Provider: 12:44 Date Seen: 06/18/22 Chief complaint: Skin/Abscess/Foreign Body Stated complaint: Outbreak on scalp and face Time Seen by Provider: 06/18/22 12:40 Source: patient, RN notes reviewed and old records reviewed Mode of arrival: ambulatory Limitations: no limitations History of Present Illness HPI narrative: I am seeing this 51-year-old female presenting to the ER with concern of an infection in her scalp that she perceives is recurrent MRSA infection. She states it is back. She shows me a bottle of Bactrim DS that she is currently about to finish for her scalp. I had just given her doxycycline on May 29 when I had saw her. I did review with her at that time a noted her to be picking at her scalp during my interaction. I also did some research in her medical records prior to going in to see her. She did go to Dermatology [facility] 06/30/2021. She reported that she was worried that she has a bacterial infection that comes out her scalp. She had been seen in Dermatology back in 01/13/2021 as well. She thinks that some of her infection is stemming from COVID. In the notes from [place] in June 2021. 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 She has been twice to Dermatology in [facility] in April 08 and 05/21/2021. Her visit with the household appliance assembler in June was quite extensive and I will included in the records. The household appliance assembler reviewed that was is pending in that the patient's skin condition and itching is not due to a chronic or recurrent bacterial infection. He felt that the main issue appears to be chronic pruritus leading to excoriations of the scalp and skin. He recommended that oral antibiotics be avoided unless she develops a secondary bacterial skin infection. An only limit to a few days of therapy. If acne is an underlying concern, an acne regimen could be considered. I have also reviewed a recent note from 04/29/2022 from clinic. In that note, patient and her doctor discuss that she had struggled with scalp dermatitis for nearly 10 years. She has been to multiple Dermatology providers and infectious disease. The patient believed that she had MRSA groin from her wound. She had tried multiple oral antibiotics, topical antifungal solution, topical steroids, topical antibiotics but the lesions always reoccur. Patient is also known to have celiac disease and historically has not followed a gluten free diet. Patient relays to me that these lesions are back in her head she feels the infection comes up from under the skin and will come out. She states she has cysts underneath her skin right now. The areas she is pointing to have excoriated skin, superficial epidermis is gone and there is superficial scab. There is no underlying fluctuance, no cysts, no abscess. I have reviewed with Diya that I did culture 1 of her scalp lesions last time I saw her. Admittedly she had more excoriations in her scalp last time when I saw her. This culture grew Staph aureus but not MRSA. I reviewed with Diya and her mom whom is with her today that this is a normal skin jesse for all of us. I reviewed with her that we carry bacteria in her mouth, through our GI tract, on her skin. We are not without bacteria and most often it is a normal finding. I have discussed with her inappropriate antibiotic use. I have discussed with her underlying pruritic skin conditions in just general pruritus that people can suffer from. I have reviewed with her and her mom that I am concerned that some of this might be psychiatric in the sense of fixation on her skin in the lesions. I reviewed with her that I did watch her pick and itch at her scalp quite a bit last time I saw her, I did wonder about neurodermatitis. I admitted to her last time when I saw her I would really was on the fence and not completely convinced that she needed antibiotics. I trusted her history of upfront that she was providing me but today I have went back and looked into more records. I did review with her after examining her that I would not be prescribing antibiotics. She wanted to know what other things could be done and at this point I have discussed with her that this is not an emergent condition. She has had multiple things prescribed including topical regimens, this is well beyond the scope of the ER and she is presenting with no emergent medical condition at this time. I feel it is in her best interest that she return to clinic and have this followed through clinic. I completely feel that prescribing her antibiotics at this time is inappropriate and medically unnecessary. She understandably is quite upset with me but I have nothing else to offer her. She is on Tangela D, reviewed with her that that can sometimes help her itis. She is taking those medications, chronic pruritus is out of my a scope of practice, she can try her primary care provider or back to Dermatology. Related Data Home Medications Medication Instructions Recorded Confirmed Lactobacillus acidophilus 10 mg PO QDAY 12/23/21 12/23/21 buspirone 5 mg tablet 30 mg PO BID 12/23/21 02/22/22 cholecalciferol (vitamin D3) 50 2,000 unit PO DAILY 12/23/21 12/23/21 mcg (2,000 unit) tablet divalproex 125 mg tablet,delayed 500 mg PO QHS 12/23/21 02/22/22 release epinephrine 0.3 mg/0.3 mL 0.3 mg IM .As Needed PRN 12/23/21 02/22/22 injection, auto-injector fluconazole 150 mg tablet 150 mg PO ONCE 12/23/21 12/23/21 fluoxetine 20 mg capsule 40 mg PO DAILY 12/23/21 02/22/22 fluticasone propionate 230 1 inh inhalation BID 12/23/21 02/22/22 mcg-salmeterol 21 mcg/actuation HFA inhaler gabapentin 300 mg capsule 300 mg PO Q8H 12/23/21 02/22/22 levothyroxine 125 mcg tablet 125 mcg PO DAILY 12/23/21 02/22/22 lysine 500 mg tablet 500 mg PO Q12H 12/23/21 02/22/22 melatonin 3 mg capsule 6 mg PO .Bedtime as needed PRN 12/23/21 02/22/22 montelukast 10 mg tablet 10 mg PO .Bedtime 12/23/21 02/22/22 omeprazole 20 mg capsule,delayed 20 mg PO BID 12/23/21 02/22/22 release tizanidine 2 mg capsule 2 mg PO Q8H PRN 12/23/21 02/22/22 albuterol sulfate 90 mcg/actuation 2 inh inhalation Q4H PRN 02/22/22 02/22/22 aerosol inhaler benzoyl peroxide 10 % topical 1 applic topical DAILY 02/22/22 02/22/22 cleanser clonidine HCl 0.1 mg tablet 0.1 mg PO Q12H 02/22/22 02/22/22 fexofenadine 180 mg tablet 180 mg PO DAILY 02/22/22 02/22/22 (Allergy Relief (fexofenadine)) hydroxyzine HCl 25 mg tablet 25 mg PO Q6H PRN 02/22/22 02/22/22 ipratropium 0.5 mg-albuterol 3 mg 3 ml inhalation Q6-8H PRN 02/22/22 02/22/22 (2.5 mg base)/3 mL nebulization soln mometasone 50 mcg/actuation nasal 2 spray intranasal Q12H 02/22/22 02/22/22 spray Previous Rx's Medication Instructions Recorded doxycycline hyclate 100 mg capsule 100 mg PO BID 14 days #28 caps 04/08/22 metronidazole 500 mg tablet 500 mg PO BID 14 days #28 tabs 04/08/22 clindamycin HCl 150 mg capsule 150 mg PO TID #21 caps 05/20/22 prednisone 20 mg tablet 20 mg PO BID #10 tabs 05/20/22 doxycycline monohydrate 100 mg 100 mg PO BID #20 caps 05/29/22 capsule Allergies Allergy/AdvReac Type Severity Reaction Status Date / Time hydrocodone Allergy Mild Rash Verified 06/18/22 12:39 hydromorphone [From Dilaudid] Allergy Mild itching Verified 06/18/22 12:39 pollen extracts Allergy Mild itching Verified 06/18/22 12:39 sulfamethoxazole Allergy Mild Rash Verified 06/18/22 12:39 [From Bactrim] trimethoprim [From Bactrim] Allergy Mild Rash Verified 06/18/22 12:39 wheat Allergy Mild gluten Verified 06/18/22 12:39 intolerance quetiapine [From Seroquel] Allergy Unknown Verified 06/18/22 12:39 acetaminophen Allergy Verified 06/18/22 12:39 oxycodone Allergy Verified 06/18/22 12:39 prednisone Allergy itching Verified 06/18/22 12:39 Tetracyclines Allergy Rash Verified 06/18/22 12:39 tramadol Allergy loss of Verified 06/18/22 12:39 memory trazodone Allergy memory loss Verified 06/18/22 12:39 venlafaxine Allergy sweating Verified 06/18/22 12:39 potassium sparing diuretics Allergy Uncoded 02/23/22 00:18 Review of Systems Narrative: as per HPI [facility] Medical History Abnormal LFTs ?R79.89 - Other specified abnormal findings of blood chemistry (ICD-10) Adjustment disorder with depressed mood ?F43.21 - Adjustment disorder with depressed mood (ICD-10) Anemia ?D64.9 - Anemia, unspecified (ICD-10) Anxiety ?F41.9 - Anxiety disorder, unspecified (ICD-10) Asthma (11/27/12) ?J45.909 - Unspecified asthma, uncomplicated (ICD-10) Asthma ?J45.909 - Unspecified asthma, uncomplicated (ICD-10) Celiac disease ?K90.0 - Celiac disease (ICD-10) Chondromalacia of both patellae ?M22.41 - Chondromalacia patellae, right knee (ICD-10) ?M22.42 - Chondromalacia patellae, left knee (ICD-10) Chronic low back pain ?M54.50 - Low back pain, unspecified (ICD-10) ?G89.29 - Other chronic pain (ICD-10) Chronic sinusitis ?J32.9 - Chronic sinusitis, unspecified (ICD-10) Cystic acne ?L70.0 - Acne vulgaris (ICD-10) DDD (degenerative disc disease), cervical ?M50.30 - Other cervical disc degeneration, unspecified cervical region (ICD-10) Dermatitis ?L30.9 - Dermatitis, unspecified (ICD-10) Diaphragmatic hernia without mention of obstruction or gangrene ?K44.9 - Diaphragmatic hernia without obstruction or gangrene (ICD-10) Gastroesophageal reflux disease ?K21.9 - Gastro-esophageal reflux disease without esophagitis (ICD-10) Generalized anxiety disorder ?F41.1 - Generalized anxiety disorder (ICD-10) Hiatal hernia ?K44.9 - Diaphragmatic hernia without obstruction or gangrene (ICD-10) History of methicillin resistant Staphylococcus aureus infection ?Z86.14 - Personal history of Methicillin resistant Staphylococcus aureus infection (ICD-10) Hypothyroidism, acquired ?E03.9 - Hypothyroidism, unspecified (ICD-10) Major depression, recurrent ?F33.9 - Major depressive disorder, recurrent, unspecified (ICD-10) Methicillin resistant Staphylococcus aureus infection ?A49.02 - Methicillin resistant Staphylococcus aureus infection, unspecified site (ICD-10) Migraine ?G43.909 - Migraine, unspecified, not intractable, without status migrainosus (ICD-10) Mixed hyperlipidemia ?E78.2 - Mixed hyperlipidemia (ICD-10) KEE (nonalcoholic steatohepatitis) ?K75.81 - Nonalcoholic steatohepatitis (KEE) (ICD-10) Osteoarthritis of patellofemoral joints of both knees ?M17.0 - Bilateral primary osteoarthritis of knee (ICD-10) Palpitations ?R00.2 - Palpitations (ICD-10) PTSD (post-traumatic stress disorder) ?F43.10 - Post-traumatic stress disorder, unspecified (ICD-10) Reflux esophagitis ?K21.00 - Gastro-esophageal reflux disease with esophagitis, without bleeding (ICD-10) Seasonal allergic rhinitis due to pollen ?J30.1 - Allergic rhinitis due to pollen (ICD-10) Tachycardia, unspecified ?R00.0 - Tachycardia, unspecified (ICD-10) Tobacco abuse ?Z72.0 - Tobacco use (ICD-10) Surgical History Delta teeth extracted ?K08.409 - Partial loss of teeth, unspecified cause, unspecified class (ICD-10) Social History Smoking Status: Current every day smoker What tobacco products do you use: cigarettes How often do you have a drink containing alcohol: monthly or less How often do you have six or more drinks on one occasion: Never AUDIT-C Alcohol total score: 1 Non-prescribed substance use: denies use service: Yes Exam Narrative: Exam Narrative: Patient has 1 linear area just to the left the top of her scalp where there are 3 little very superficial areas where the epidermis is denuded over on the right-hand side of her scalp she has a smaller circular area that is just a little deeper beyond the epidermis. These have superficial scabbing over them. There is no surrounding erythema. There is absolutely no fluctuance, no significant induration, no evidence of any underlying cystic lesions or abscess. Patient states if she needs me to, she can unroof them and then I can see the fluid come out. I have reviewed with her that if you pick at skin enough, you will causes fluid to come out. My discussion with her regarding her skin lesions and her sense that there is something under the skin that has to come out, makes me think that this is becoming more of a psychiatric fixation with her. The duration of her symptoms, the multiple provider she is seen and the recent records I have reviewed, I feel I half to decline giving her antibiotics today as I see nothing clinically necessary as well as the fact that just giving her antibiotics to pacify her puts her at risk for the use of the medication and ongoing risk of supporting a condition that does not need to be treated with this type of medicine. Const: Vital Signs, click to edit/add: Vital Signs - 24 hr 06/18/22 12:36 Temperature 97.4 F L Pulse Rate [Right Pulse Oximeter] 82 Respiratory Rate 16 Blood Pressure [Ri ght Upper Arm] 127/68 Pulse Oximetry 99 Oxygen Delivery Me thod Room Air Documenting provider has reviewed patient's vital signs: yes Common normals: no apparent distress, average body habitus and oriented x3 Neuro: Common normals: oriented x3 Course Vital Signs Vital signs: Initial Vital Signs Temperature 97.4 F L 06/18/22 12:36 Temperature Source Temporal Artery Scan 06/18/22 12:36 Pulse Rate 82 06/18/22 12:36 Pulse Rhythm Regular, Irregular, Regularly Irregular 06/18/22 12:36 Pulse Strength 3+ Normal 06/18/22 12:36 Respiratory Rate 16 06/18/22 12:36 Blood Pressure 127/68 06/18/22 12:36 Blood Pressure Mean 87 06/18/22 12:36 Pulse Oximetry 99 06/18/22 12:36 Oxygen Delivery Method Room Air 06/18/22 12:36 Vital Signs Temperature 97.4 F L 06/18/22 12:36 Pulse Rate 82 06/18/22 12:36 Respiratory Rate 16 06/18/22 12:36 Blood Pressure 127/68 06/18/22 12:36 Pulse Oximetry 99 06/18/22 12:36 Oxygen Delivery Method Room Air 06/18/22 12:36 Temperature 97.4 F L 06/18/22 12:36 Pulse Rate 82 06/18/22 12:36 Respiratory Rate 16 06/18/22 12:36 Blood Pressure 127/68 06/18/22 12:36 Pulse Oximetry 99 06/18/22 12:36 Oxygen Delivery Method Room Air 06/18/22 12:36 Discharge Plan Discharge Clinical Impression: Excoriated rash Patient Disposition: Home, Self-Care Condition: Stable Instructions: Eczema (ED) Additional Instructions: Unfortunately I have nothing more to offer you today. This is a chronic condition that has been going on for years from what I can see in your history. This is beyond the scope of the emergency room. What I am 100% sure of today, is that no antibiotics are indicated at this time. Certainly the areas that have been picked at on your scalp can become infected, there is no evidence of this today. I do recommend that you try as best as you can to not pick it areas on your scalp. I see about 4 separate areas where the epidermis has been disrupted and there are superficial scabs over these. This is something that should be managed through your clinic or with a household appliance assembler. There certainly can be underlying chronic skin irritation or itching which may be triggering your sensation of your scalp. You can work with the household appliance assembler or your primary care provider further regarding no symptoms, again this being a chronic issue. Activity Level: Activity as Tolerated Diet Detail: Gluten free Prescriptions: No Action cholecalciferol (vitamin D3) 50 mcg (2,000 unit) tablet 2,000 unit PO DAILY fluticasone propion-salmeterol 230-21 mcg/actuation HFA aerosol inhaler 1 inh inhalation BID fluoxetine 20 mg capsule 40 mg PO DAILY lysine 500 mg tablet 500 mg PO Q12H epinephrine 0.3 mg/0.3 mL auto-injector 0.3 mg IM .As Needed PRN montelukast 10 mg tablet 10 mg PO .Bedtime omeprazole 20 mg capsule,delayed release(DR/EC) 20 mg PO BID divalproex 125 mg tablet,delayed release (DR/EC) 500 mg PO QHS levothyroxine 125 mcg tablet 125 mcg PO DAILY fluconazole 150 mg tablet 150 mg PO ONCE tizanidine 2 mg capsule 2 mg PO Q8H PRN gabapentin 300 mg capsule 300 mg PO Q8H buspirone 5 mg tablet 30 mg PO BID Lactobacillus acidophilus Capsule 10 mg PO QDAY melatonin 3 mg capsule 6 mg PO .Bedtime as needed PRN albuterol sulfate 90 mcg/actuation HFA aerosol inhaler 2 inh inhalation Q4H PRN ipratropium-albuterol 0.5 mg-3 mg(2.5 mg base)/3 mL solution for nebulization 3 ml inhalation Q6-8H PRN clonidine HCl 0.1 mg tablet 0.1 mg PO Q12H fexofenadine [Allergy Relief (fexofenadine)] 180 mg tablet 180 mg PO DAILY benzoyl peroxide 10 % cleanser 1 applic topical DAILY mometasone 50 mcg/actuation spray,non-aerosol 2 spray intranasal Q12H Rx Instructions: administer into each nostril hydroxyzine HCl 25 mg tablet 25 mg PO Q6H PRN doxycycline monohydrate 100 mg capsule 100 mg PO BID Qty: 20 0RF doxycycline hyclate 100 mg capsule 100 mg PO BID 14 Days Qty: 28 0RF metronidazole 500 mg tablet 500 mg PO BID 14 Days Qty: 28 0RF clindamycin HCl 150 mg capsule 150 mg PO TID Qty: 21 0RF prednisone 20 mg tablet 20 mg PO BID Qty: 10 0RF Follow Up/Referrals: Provider,Not a Local [Primary Care Provider] - Stand Alone Forms: [facility] Inst[facility]
--- OUTSIDE RECORDS SUMMARY | 2022-06-18 14:00 | XMS_ITS ---
Author Name Jared Pratt Address [address] [place] [phone] Organization [facility] Primary Address [address] [place] [phone] Care Team Providers Care Skin Fitter Name Role Phone Jared Pratt Unavailable [phone] PROBLEMS Type Condition ICD9-CM Code [id number] Code Onset Dates Condition Status SNOMED Code Problem Headache, unspecified R51.9 Active 00331793 Problem Post-traumatic stress disorder, chronic F43.12 Active 91809981 ALLERGIES Substance Reaction Event Type Date Status trazodone memory problem Drug Allergy Feb, Active Percocet stomach upset Drug Allergy Feb, Active hydrocodone itching Drug Allergy Feb, Active ENCOUNTERS Encounter Location Date Diagnosis [facility] [address] [address] Feb, Post-traumatic stress disorder, chronic F43.12 [facility] [address] [place] [phone] Jan, Post-traumatic stress disorder, chronic F43.12 and Headache, unspecified R51.9 [facility] [address] [place] [phone] May, Post-traumatic stress disorder, chronic F43.12 [facility] [address] [place], [place] [address] [phone] Jan, Post-traumatic stress disorder, chronic F43.12 and Headache, unspecified R51.9 IMMUNIZATIONS No Known Immunizations SOCIAL HISTORY Qualifiers Date Current Smoker REASON FOR REFERRAL FUNCTIONAL STATUS PLAN OF CARE Activity Details VITAL SIGNS MEDICATIONS Medication Instructions Dosage Frequency Start Date End Date Duration Status divalproex sodium 500 mg orally 3 times a day 1 tab(s) 8h 30 day(s) Active Wixela Inhub 100 mcg-50 mcg inhaled 2 times a day 1 INH 12h 30 day(s) Active tiZANidine 2 mg orally every 8 hours 2 tab(s) 8h 30 day(s) Active montelukast 10 mg orally once a day 1 tab(s) 24h 30 day(s) Active primidone 50 mg orally 1 times a day 1 tab(s) Active FLUoxetine 40 mg orally once a day 1 cap(s) 24h 30 day(s) Active cloNIDine 0.1 mg orally 2 times a day 1 tab(s) 12h 30 day(s) Active levothyroxine 125 mcg (0.125 mg) orally once a day 1 tab(s) 24h Active gabapentin 300 mg orally 3 times a day 1 cap(s) 8h 30 day(s) Active busPIRone 30 mg orally 2 times a day 1 tab(s) 12h 30 day(s) Not-Takin g PROCEDURES No Known procedures RESULTS No Results REASON FOR VISIT cannabis phone recert, PTSD, Cannabis Recert, PTSD, Chronic headaches, recertPHONE, PTSD, Migraine , Sleep apnea, cannabis recert phone, cannabis cert, PTSD, Migraine , Sleep apnea Insurance Providers Health Insurance Type Health Plan Insurance Address Health Plan Insurance Phone Health Plan Insurance Name Health Plan Coverage Dates Member ID Patient Relationship to Subscriber Patient Address Patient Phone Patient Name Patient Date of Subscriber ID Subscriber Name Subscriber Date of Group No [employer] [address] [address] [facility] [address] [employer] Medicare self Korina Soto [id number] Medicare Part B [employer] CLAIM [address] [place] [address] Medicare Part B self Korina Soto [id number]
== END 2022-06-18 13:59 | disposition home or self-care (01) ==
PROVIDERS: Emergency Provider Family Medicine
DX: R21 Rash and other nonspecific skin eruption (principal)
CPT/HCPCS: 99282

== ENCOUNTER 2022-09-09 23:02 | Emergency (ER) | payer OTHER, SELFPAY ==
[2022-09-09 23:49] VITALS: BP 109/67; PULSE 66; RESP 18; TEMP 36.8; O2SAT 97; BMI 27.4
--- OUTSIDE RECORDS SUMMARY | 2022-09-10 00:16 | XMS_ITS ---
Author Name Jared Pratt Address [address] [place] [phone] Organization [facility] Primary Address [address] [place] [phone] Care Team Providers Care Farm Management Teacher Name Role Phone Jared Pratt Unavailable [phone] PROBLEMS Type Condition ICD9-CM Code ZKS93-JC Code Onset Dates Condition Status SNOMED Code Problem Headache, unspecified R51.9 Active [id number] Problem Post-traumatic stress disorder, chronic F43.12 Active [id number] ALLERGIES Substance Reaction Event Type Date Status trazodone memory problem Drug Allergy Feb, Active Percocet stomach upset Drug Allergy Feb, Active hydrocodone itching Drug Allergy Feb, Active ENCOUNTERS Encounter Location Date Diagnosis [facility] [address] [address] Feb, Post-traumatic stress disorder, chronic F43.12 [facility] [address] [place] [phone] Jan, Post-traumatic stress disorder, chronic F43.12 and Headache, unspecified R51.9 [facility] [address] [place] [phone] May, Post-traumatic stress disorder, chronic F43.12 [facility] [address] [place], [place] [address] [address] Jan, Post-traumatic stress disorder, chronic F43.12 and Headache, unspecified R51.9 IMMUNIZATIONS No Known Immunizations SOCIAL HISTORY Qualifiers Date Current Smoker REASON FOR REFERRAL FUNCTIONAL STATUS PLAN OF CARE Activity Details Follow Up 1 Year Reason: Future Appointment Provider Name:Jared Pratt, 2022-12-22 11:45:00 AM, [address], 5pm, [place], [address], VITAL SIGNS MEDICATIONS Medication Instructions Dosage Frequency [...] Subscriber Name Subscriber Date of Group No Medicare Part B [employer] CLAIM [address] [place] [address] Medicare Part B self Korina Soto [id number] [employer] Medicare [address] [address] [facility] [address] [employer] Medicare self Korina Soto [id number]
--- NOTE | 2022-09-10 01:18 | ED.SKABFB ---
HPI - Skin/Abscess/Foreign Bdy General Date Seen: 09/10/22 Chief complaint: Skin/Abscess/Foreign Body Stated complaint: Headache Time Seen by Provider: 09/09/22 23:10 Source: patient Mode of arrival: ambulatory Limitations: no limitations History of Present Illness HPI narrative: 51-year-old female who presents here with the worsening of her cellulitic process on her head, she tells me she feels it is itchy, she has been scratching more. 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 She is followed by dermatology in been on multiple courses of antibiotics and I refer the reader to read previous notes from ER physician's here in the spring of this year. She was seen in their emergency room started on the doxycycline, she was not seen by Dermatology. She denies any fevers chills or sweats, but just thought it worsened so she came in tonight to be seen, she denies any problems with swallowing, there is no swelling in her arms, she has no other issues, Related Data Home Medications Medication Instructions Recorded Confirmed Lactobacillus acidophilus 10 mg PO QDAY 12/23/21 12/23/21 buspirone 5 mg tablet 30 mg PO BID 12/23/21 02/22/22 cholecalciferol (vitamin D3) 50 2,000 unit PO DAILY 12/23/21 12/23/21 mcg (2,000 unit) tablet divalproex 125 mg tablet,delayed 500 mg PO QHS 12/23/21 02/22/22 release epinephrine 0.3 mg/0.3 mL 0.3 mg IM .As Needed PRN 12/23/21 02/22/22 injection, auto-injector fluconazole 150 mg tablet 150 mg PO ONCE 12/23/21 12/23/21 fluoxetine 20 mg capsule 40 mg PO DAILY 12/23/21 02/22/22 fluticasone propionate 230 1 inh inhalation BID 12/23/21 02/22/22 mcg-salmeterol 21 mcg/actuation HFA inhaler gabapentin 300 mg capsule 300 mg PO Q8H 12/23/21 02/22/22 levothyroxine 125 mcg tablet 125 mcg PO DAILY 12/23/21 02/22/22 lysine 500 mg tablet 500 mg PO Q12H 12/23/21 02/22/22 melatonin 3 mg capsule 6 mg PO .Bedtime as needed PRN 12/23/21 02/22/22 montelukast 10 mg tablet 10 mg PO .Bedtime 12/23/21 02/22/22 omeprazole 20 mg capsule,delayed 20 mg PO BID 12/23/21 02/22/22 release tizanidine 2 mg capsule 2 mg PO Q8H PRN 12/23/21 02/22/22 albuterol sulfate 90 mcg/actuation 2 inh inhalation Q4H PRN 02/22/22 02/22/22 aerosol inhaler benzoyl peroxide 10 % topical 1 applic topical DAILY 02/22/22 02/22/22 cleanser clonidine HCl 0.1 mg tablet 0.1 mg PO Q12H 02/22/22 02/22/22 fexofenadine 180 mg tablet 180 mg PO DAILY 02/22/22 02/22/22 (Allergy Relief (fexofenadine)) hydroxyzine HCl 25 mg tablet 25 mg PO Q6H PRN 02/22/22 02/22/22 ipratropium 0.5 mg-albuterol 3 mg 3 ml inhalation Q6-8H PRN 02/22/22 02/22/22 (2.5 mg base)/3 mL nebulization soln mometasone 50 mcg/actuation nasal 2 spray intranasal Q12H 02/22/22 02/22/22 spray Previous Rx's Medication Instructions Recorded doxycycline hyclate 100 mg capsule 100 mg PO BID 14 days #28 caps 04/08/22 metronidazole 500 mg tablet 500 mg PO BID 14 days #28 tabs 04/08/22 clindamycin HCl 150 mg capsule 150 mg PO TID #21 caps 05/20/22 prednisone 20 mg tablet 20 mg PO BID #10 tabs 05/20/22 doxycycline monohydrate 100 mg 100 mg PO BID #20 caps 05/29/22 capsule Allergies Allergy/AdvReac Type Severity Reaction Status Date / Time hydrocodone Allergy Mild Rash Verified 06/18/22 12:39 hydromorphone [From Dilaudid] Allergy Mild itching Verified 06/18/22 12:39 pollen extracts Allergy Mild itching Verified 06/18/22 12:39 sulfamethoxazole Allergy Mild Rash Verified 06/18/22 12:39 [From Bactrim] trimethoprim [From Bactrim] Allergy Mild Rash Verified 06/18/22 12:39 wheat Allergy Mild gluten Verified 06/18/22 12:39 intolerance quetiapine [From Seroquel] Allergy Unknown Verified 06/18/22 12:39 acetaminophen Allergy Verified 06/18/22 12:39 oxycodone Allergy Verified 06/18/22 12:39 prednisone Allergy itching Verified 06/18/22 12:39 Tetracyclines Allergy Rash Verified 06/18/22 12:39 tramadol Allergy loss of Verified 06/18/22 12:39 memory trazodone Allergy memory loss Verified 06/18/22 12:39 venlafaxine Allergy sweating Verified 06/18/22 12:39 potassium sparing diuretics Allergy Uncoded 02/23/22 00:18 Review of Systems Status of ROS: Reports: 10 or more systems reviewed and unremarkable except as noted in History and below [facility] Medical History Abnormal LFTs ?R79.89 - Other specified abnormal findings of blood chemistry (ICD-10) Hiatal hernia ?K44.9 - Diaphragmatic hernia without obstruction or gangrene (ICD-10) Seasonal allergic rhinitis due to pollen ?J30.1 - Allergic rhinitis due to pollen (ICD-10) PTSD (post-traumatic stress disorder) ?F43.10 - Post-traumatic stress disorder, unspecified (ICD-10) Chronic sinusitis ?J32.9 - Chronic sinusitis, unspecified (ICD-10) DDD (degenerative disc disease), cervical ?M50.30 - Other cervical disc degeneration, unspecified cervical region (ICD-10) Adjustment disorder with depressed mood ?F43.21 - Adjustment disorder with depressed mood (ICD-10) Tachycardia, unspecified ?R00.0 - Tachycardia, unspecified (ICD-10) Reflux esophagitis ?K21.00 - Gastro-esophageal reflux disease with esophagitis, without bleeding (ICD-10) KEE (nonalcoholic steatohepatitis) ?K75.81 - Nonalcoholic steatohepatitis (KEE) (ICD-10) Mixed hyperlipidemia ?E78.2 - Mixed hyperlipidemia (ICD-10) Migraine ?G43.909 - Migraine, unspecified, not intractable, without status migrainosus (ICD-10) Major depression, recurrent ?F33.9 - Major depressive disorder, recurrent, unspecified (ICD-10) Hypothyroidism, acquired ?E03.9 - Hypothyroidism, unspecified (ICD-10) Generalized anxiety disorder ?F41.1 - Generalized anxiety disorder (ICD-10) Diaphragmatic hernia without mention of obstruction or gangrene ?K44.9 - Diaphragmatic hernia without obstruction or gangrene (ICD-10) Cystic acne ?L70.0 - Acne vulgaris (ICD-10) Chondromalacia of both patellae ?M22.41 - Chondromalacia patellae, right knee (ICD-10) ?M22.42 - Chondromalacia patellae, left knee (ICD-10) Celiac disease ?K90.0 - Celiac disease (ICD-10) Anxiety ?F41.9 - Anxiety disorder, unspecified (ICD-10) Anemia ?D64.9 - Anemia, unspecified (ICD-10) Tobacco abuse ?Z72.0 - Tobacco use (ICD-10) Palpitations ?R00.2 - Palpitations (ICD-10) Osteoarthritis of patellofemoral joints of both knees ?M17.0 - Bilateral primary osteoarthritis of knee (ICD-10) Methicillin resistant Staphylococcus aureus infection ?A49.02 - Methicillin resistant Staphylococcus aureus infection, unspecified site (ICD-10) History of methicillin resistant Staphylococcus aureus infection ?Z86.14 - Personal history of Methicillin resistant Staphylococcus aureus infection (ICD-10) Gastroesophageal reflux disease ?K21.9 - Gastro-esophageal reflux disease without esophagitis (ICD-10) Dermatitis ?L30.9 - Dermatitis, unspecified (ICD-10) Chronic low back pain ?M54.50 - Low back pain, unspecified (ICD-10) ?G89.29 - Other chronic pain (ICD-10) Asthma ?J45.909 - Unspecified asthma, uncomplicated (ICD-10) Asthma (11/27/12) ?J45.909 - Unspecified asthma, uncomplicated (ICD-10) Surgical History [place] teeth extracted ?K08.409 - Partial loss of teeth, unspecified cause, unspecified class (ICD-10) Social History Smoking Status: Current every day smoker What tobacco products do you use: cigarettes How often do you have a drink containing alcohol: monthly or less How often do you have six or more drinks on one occasion: Never AUDIT-C Alcohol total score: 1 Non-prescribed substance use: marijuana (any form) service: Yes Exam Narrative: Exam Narrative: On examination here, she is itching and scratching her head, but the excoriations and she tells me that her worse, I actually all look like they are healing quite well and appear to be just excoriations from scratching on both her scalp and on her face. I do not see any secondary infection here, there is no lymphadenopathy or mouth opening is normal. Const: Vital Signs, click to edit/add: Vital Signs - 24 hr 09/09/22 23:49 Temperature 98.3 F Pulse Rate [Left P ulse Oximeter] 66 Respiratory Rate 18 Blood Pressure [Ri ght Upper Arm] 109/67 Pulse Oximetry 97 Oxygen Delivery Me thod Room Air Documenting provider has reviewed patient's vital signs: yes Course Course Hospital Course: I spoke to the patient I think it is in her best interest is continue the doxycycline as I did not see her when this initially occurred earlier early now she does not have a cellulitic process and there is really no evidence of any significant infection there, I would implore her not to scratch her head, and reassured her that I think things are going well. Follow-up with dermatology or primary care. Vital Signs Vital signs: Initial Vital Signs Temperature 98.3 F 09/09/22 23:49 Temperature Source Oral 09/09/22 23:49 Pulse Rate 66 09/09/22 23:49 Respiratory Rate 18 09/09/22 23:49 Blood Pressure 109/67 09/09/22 23:49 Blood Pressure Mean 81 09/09/22 23:49 Blood Pressure Position Sitting 09/09/22 23:49 Pulse Oximetry 97 09/09/22 23:49 Oxygen Delivery Method Room Air 09/09/22 23:49 Vital Signs Temperature 98.3 F 09/09/22 23:49 Pulse Rate 66 09/09/22 23:49 Respiratory Rate 18 09/09/22 23:49 Blood Pressure 109/67 09/09/22 23:49 Pulse Oximetry 97 09/09/22 23:49 Oxygen Delivery Method Room Air 09/09/22 23:49 Temperature 98.3 F 09/09/22 23:49 Pulse Rate 66 09/09/22 23:49 Respiratory Rate 18 09/09/22 23:49 Blood Pressure 109/67 09/09/22 23:49 Pulse Oximetry 97 09/09/22 23:49 Oxygen Delivery Method Room Air 09/09/22 23:49 MDM - Skin/Abscess/Foreign Bdy Differential Diagnosis Differential diagnosis: Likely abscess of skin or subcutaneous tissue, viral exanthem, dermatophytosis, urticaria, herpes zoster, allergic reaction to drug, cellulitis, eczema, insect bites, impetigo and contact dermatitis Medical Records Attestation: I reviewed the patient's medical records. Discharge Plan Discharge Clinical Impression: Multiple excoriations, Cellulitis Patient Disposition: Home, Self-Care Condition: Stable Instructions: Cellulitis (ED), Warm Compress or Soak (ED) Additional Instructions: The cellulitis is much improved in fact I can not really tell at this point, there is an infection. I would continue with the doxycycline, reassurance, and try as hard as you can Diya not to pick at this area. [facility], Activity Level: Light activity Prescriptions: No Action cholecalciferol (vitamin D3) 50 mcg (2,000 unit) tablet 2,000 unit PO DAILY fluticasone propion-salmeterol 230-21 mcg/actuation HFA aerosol inhaler 1 inh inhalation BID fluoxetine 20 mg capsule 40 mg PO DAILY lysine 500 mg tablet 500 mg PO Q12H epinephrine 0.3 mg/0.3 mL auto-injector 0.3 mg IM .As Needed PRN montelukast 10 mg tablet 10 mg PO .Bedtime omeprazole 20 mg capsule,delayed release(DR/EC) 20 mg PO BID divalproex 125 mg tablet,delayed release (DR/EC) 500 mg PO QHS levothyroxine 125 mcg tablet 125 mcg PO DAILY fluconazole 150 mg tablet 150 mg PO ONCE tizanidine 2 mg capsule 2 mg PO Q8H PRN gabapentin 300 mg capsule 300 mg PO Q8H buspirone 5 mg tablet 30 mg PO BID Lactobacillus acidophilus Capsule 10 mg PO QDAY melatonin 3 mg capsule 6 mg PO .Bedtime as needed PRN albuterol sulfate 90 mcg/actuation HFA aerosol inhaler 2 inh inhalation Q4H PRN ipratropium-albuterol 0.5 mg-3 mg(2.5 mg base)/3 mL solution for nebulization 3 ml inhalation Q6-8H PRN clonidine HCl 0.1 mg tablet 0.1 mg PO Q12H fexofenadine [Allergy Relief (fexofenadine)] 180 mg tablet 180 mg PO DAILY benzoyl peroxide 10 % cleanser 1 applic topical DAILY mometasone 50 mcg/actuation spray,non-aerosol 2 spray intranasal Q12H Rx Instructions: administer into each nostril hydroxyzine HCl 25 mg tablet 25 mg PO Q6H PRN doxycycline monohydrate 100 mg capsule 100 mg PO BID Qty: 20 0RF doxycycline hyclate 100 mg capsule 100 mg PO BID 14 Days Qty: 28 0RF metronidazole 500 mg tablet 500 mg PO BID 14 Days Qty: 28 0RF clindamycin HCl 150 mg capsule 150 mg PO TID Qty: 21 0RF prednisone 20 mg tablet 20 mg PO BID Qty: 10 0RF Follow Up/Referrals: Provider,Not a Local [Primary Care Provider] - Stand Alone Forms: [facility] Info Instructions
== END 2022-09-10 00:23 | disposition home or self-care (01) ==
PROVIDERS: Emergency Provider Family Medicine
DX: L03.211 Cellulitis of face (principal); L03.811 Cellulitis of head [any part, except face]
CPT/HCPCS: 99283

== ENCOUNTER 2022-10-30 21:21 | Emergency (ER) | payer OTHER, SELFPAY ==
[2022-10-30 21:34] VITALS: BP 135/78; PULSE 78; RESP 18; TEMP 36.7; O2SAT 99
--- OUTSIDE RECORDS SUMMARY | 2022-10-30 21:57 | XMS_ITS | Patient Health Record ---
Author Name Unknown Organization [facility] - Primary Address [address] [place] [address] [place] [address] Care Team Providers Care Stevedore Dock Name Role Phone Different, PCP Primary Care Provider Jared Watts Unavailable [phone] ALLERGIES Allergen (clinical drug ingredient) Drug/Non Drug Allergy documented on EMR Reaction Allergy Type Onset Date Status trazodone memory problem Drug Allergy Ac tive hydrocodone itching Drug Allergy Activ e Percocet stomach upset Drug Allergy Act fermin REASON FOR REFERRAL No Information MEDICATIONS Medication SIG (Take, Route, Frequency, Duration) Notes Start Date End Date Status primidone 50 mg 1 tab(s) orally 1 times a day Active gabapentin 300 mg 1 cap(s) orally 3 times a day for 30 day(s) Active divalproex sodium 500 mg 1 tab(s) orally 3 times a day for 30 day(s) Active Wixela Inhub 100 mcg-50 mcg 1 INH inhaled 2 times a day for 30 day(s) Active busPIRone 30 mg 1 tab(s) orally 2 times a day for 30 day(s) Not-Taking FLUoxetine 40 mg 1 cap(s) orally once a day for 30 day(s) Active cloNIDine 0.1 mg 1 tab(s) orally 2 times a day for 30 day(s) Active montelukast 10 mg 1 tab(s) orally once a day for 30 day(s) Active tiZANidine 2 mg 2 tab(s) orally ever y 8 hours for 30 day(s) Active levothyroxine 125 mcg (0.125 mg) 1 tab(s) orally once a day Active SOCIAL HISTORY Tobacco Use: Social History Observation Description Date Details (start date - stop date) Current Smoker NA - NA Sex Assigned At : Social History Observation Description Sex Assigned At Unknown Smoking Question Answer Notes Are you a: current smoker How often do you smoke cigarettes? every day PROBLEMS Problem Type ICD Code Onset Dates Problem Status W/U Status Risk SNOMED Code Notes Problem Post-traumatic stress disorder, chronic (F43.12) Active confirmed Posttraumatic stress disorder (57096366) Problem Headache, unspecified (R51.9) Active confirmed Headache (15200518) Encounters Encounter Location Date Provider Diagnosis [facility] - Primary [address] [place] [address] 11/25/2021 Jared Pratt [facility] - Primary [address] [place] [phone] 12/13/2021 [facility] [facility] - Primary [address] [place] [phone] 02/18/2022 Jared Pratt Post-traumatic stress disorder, chronic F43.12 ASSESSMENTS Encounter Date Diagnosis Assessment Notes Treatment Notes Treatment Clinical Notes 02/18/2022 Post-traumatic stress disorder, chronic (ICD-10 - F43.12) Records reviewed with pt. Improved with cannabis. Recertified for medical cannabis on [facility] cannabis website according to [place] law PLAN OF TREATMENT Next Appt Details Provider Name:Jared Pratt , 12/22/2022 11:45:00 AM, [address], [place], [phone], Insurance Providers Payer Name Payer Address Payer Phone Subscriber Number Group Number Insured Name Patient Relationship to Insured Coverage Start Date Coverage End Date [employer] [address] [address] [place] [address] [id number] Korina Soto Self - patient is the insured MEDICAL (GENERAL) HISTORY Medical History History ICD Code anxiety PTSD sleep apnea Hypothyroidism depression insomnia allergies parkinson's disease Surgical History Surgery Date(Month/Year)
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
--- NOTE | 2022-11-01 14:52 | ED.NURSE ---
[facility] 72 hour line calling to confirm patient was seen in ED 10/30 & 10/31. They do not need any further information.
== END 2022-10-30 23:04 | disposition home or self-care (01) ==
PROVIDERS: Emergency Provider Family Medicine
DX: T74.21XA Adult sexual abuse, confirmed, initial encounter (principal)

== ENCOUNTER 2022-10-31 18:59 | Emergency (ER) | payer OTHER, SELFPAY ==
[2022-10-31 19:03] VITALS: BP 109/78; PULSE 79; RESP 16; TEMP 36.4; O2SAT 97; BMI 28.3
--- OUTSIDE RECORDS SUMMARY | 2022-10-31 19:18 | XMS_ITS | Patient Health Record ---
Author Name Unknown Organization [facility] - Primary Address [address] [place] [address] [place] [address] Care Team Providers Care Supervisor Wheel Shop Name Role Phone Different, PCP Primary Care Provider Jared Watts Unavailable [phone] ALLERGIES Allergen (clinical drug ingredient) Drug/Non Drug [...] chronic (F43.12) Active confirmed Posttraumatic stress disorder (85349022) Problem Headache, unspecified (R51.9) Active confirmed Headache (32422462) Encounters Encounter Location Date Provider Diagnosis [facility] - Primary [address] [place] [address] 11/25/2021 Jared Pratt [facility] - Primary [address] [place] [phone] 12/13/2021 Jared [facility] - Primary [address] [place] [phone] 02/18/2022 Jared Pratt Post-traumatic stress disorder, chronic F43.12 ASSESSMENTS Encounter Date Diagnosis Assessment Notes Treatment Notes Treatment Clinical Notes 02/18/2022 Post-traumatic stress disorder, chronic (ICD-10 - F43.12) Records reviewed with pt. Improved with cannabis. Recertified for medical cannabis on [facility] cannabis website according to [place] law PLAN OF TREATMENT Next Appt Details Provider Name:Jared Pratt , 12/22/2022 11:45:00 AM, [address], [place], [address], Insurance Providers Payer Name Payer Address Payer Phone Subscriber Number Group Number Insured Name Patient Relationship to Insured Coverage Start Date Coverage End Date [employer] [address] [address] [place] [address] [id number] Korina Soto Self - patient is the insured MEDICAL (GENERAL) HISTORY Medical History History ICD Code anxiety PTSD sleep apnea Hypothyroidism depression insomnia allergies parkinson's disease Surgical History Surgery Date(Month/Year)
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
--- NOTE | 2022-10-31 20:42 | PC.NURSE ---
VS 2041 117/66 HR 80 RR 16 Pulse Ox 93% denies pain
--- NOTE | 2022-10-31 21:41 | PC.NURSE ---
PADMINI nurse examiner at bedside
[2022-11-01] MEDS: cefTRIAXone 500 MG VIAL IM (00:09)
[2022-11-01] MEDS: ONDANSETRON ODT 4 MG TAB PO (00:09)
[2022-11-01] MEDS: metroNIDAZOLE 500 MG TABLET PO (00:09)
[2022-11-01] MEDS: LIDOCAINE 1% 5 ml (pf) 5 ML VIAL 1 ML IM (00:09)
[2022-11-01] MEDS: DOXYCYCLINE HYCLATE 100 MG PO (00:09)
--- NOTE | 2022-11-01 00:18 | PC.NURSE ---
patient DC, no further questions. [facility] meds per emar.
== END 2022-11-01 00:20 | disposition home or self-care (01) ==
PROVIDERS: Emergency Provider Emergency Medicine
DX: T74.21XA Adult sexual abuse, confirmed, initial encounter (principal)
CPT/HCPCS: 96372; 99281; A9270; J0696

== ENCOUNTER 2022-11-25 15:57 | Emergency (ER) | payer OTHER, SELFPAY ==
[2022-11-25 16:32] VITALS: BP 115/56; PULSE 73; RESP 16; TEMP 36.4; O2SAT 99; BMI 28.3
[2022-11-25 17:30] LABS: Appearance Urine Clear (Clear); Bilirubin Urine Negative (Negative); Blood Urine Trace-intact (Negative); Color Urine Yellow (Yellow); Glucose Urine Negative (Negative); Ketones Urine Negative (Negative); Leukocyte Esterase Urine Negative (Negative); Nitrite Urine Negative (Negative); Protein Urine Negative (Negative); Specific Gravity Urine 1.015 (1.000-1.030); Urobilinogen Urine 0.2 (0.2-1.0)
--- NOTE | 2022-11-25 18:01 | CRLHL7_ITS ---
For Patients: As a result of the 21st Century Cures Act, medical imaging exams and procedure reports are released immediately into your electronic medical record. You may view this report before your referring provider. If you have questions, please contact your health care provider. INDICATION: .LOW BACK PAIN, ABD PAIN, BODY OPDER X1YEAR TECHNIQUE: CT abdomen and pelvis without contrast. COMPARISON: None. FINDINGS: Lower chest: Bibasilar subsegmental atelectasis. ABDOMEN: Liver: Normal attenuation. Gallbladder and biliary: Normal gallbladder without radiopaque stone. Normal caliber bile ducts. Spleen: Normal size and attenuation. Pancreas: The noncontrast pancreas is homogeneous in attenuation without peripancreatic inflammatory changes or ductal dilatation. Adrenal glands: Normal adrenal glands. Kidneys and ureters: 2 millimeter nonobstructing right renal stone. No hydroureteronephrosis. GI tract: The stomach is relatively decompressed. Normal caliber small and large bowel loops. Normal appendix. Colonic diverticulosis without diverticulitis. Vascular structures: Normal caliber abdominal aorta. Lymph nodes: No lymphadenopathy in the abdomen or pelvis by size criteria. Peritoneum: No free air, free fluid, or focal drainable fluid collection. PELVIS: Genitourinary system: Although relatively decompressed there is suggestion of circumferential wall thickening of the urinary bladder. Recommend correlation with urinalysis if not already performed to assess for underlying cystitis. Age-appropriate uterus and ovaries. SKELETAL STRUCTURES AND SOFT TISSUES: Trace anterolisthesis of L5 on S1. mild lumbar spondylosis. IMPRESSION: 1. No discrete acute abdominal or pelvic process. No obstruction. No hydroureteronephrosis. Normal appendix. Colonic diverticulosis without diverticulitis. 2. Two millimeter nonobstructing right renal stone. 3. Although relatively decompressed there is suggestion of circumferential wall thickening of the urinary bladder. Recommend correlation with urinalysis if not already performed to assess for underlying cystitis. Please note that all CT scans at this facility use dose modulation, iterative reconstruction, and/or weight-based dosing when appropriate to reduce radiation dose to as low as reasonably achievable. Dictated by Panchito Montelongo MD @ 11/25/2022 8:34:54 PM (Electronically Signed)
[2022-11-25 18:09] LABS: RBC Urine 0-2 (0-2); Squamous Epithelial Cell Urine Few (None-Few); WBC Urine 0-2 (0-5)
[2022-11-25 18:34] LABS: Lactate* 0.8 mmol/L (0.5-1.9)
[2022-11-25 18:37] LABS: Basophils Absolute Auto 0.06 K/uL (0.00-0.30); Basophils Percent Auto 0.7 % (0.0-3.0); Eosinophils Absolute Auto 0.37 K/uL (0.00-0.50); Eosinophils Percent Auto 4.3 % (0.0-7.0); Hematocrit 34.9 % (33.0-51.0); Hemoglobin* 11.1 gm/dL (12.0-16.0); Immature Granulocytes Abs Auto 0.02 K/uL (0.00-0.30); Immature Granulocytes Pct Auto 0.2 %; Lymphocytes Absolute Auto 2.93 K/uL (0.90-2.90); Lymphocytes Percent Auto 33.7 % (20-44); Mean Corpuscular HGB Conc 32 gm/dL (32-36); Mean Corpuscular Hemoglobin 26 pg (26-34); Mean Corpuscular Volume 81 fL (80-100); Neutrophils Absolute Auto 4.71 K/uL (1.7-7.0); Neutrophils Percent Auto 54.1 % (42.0-72.0); Platelet Count* 449 K/uL (140-440); RDW Coefficient of Variation % 14.6 % (11.5-15.5); Red Blood Count 4.33 m/uL (4.00-5.20)
[2022-11-25 18:39] LABS: Slide Review Reflex No
[2022-11-25 18:49] LABS: Albumin* 3.9 g/dL (3.3-5.0)
[2022-11-25 18:50] LABS: Chloride* 108 mmol/L (96-114); Sodium* 139 mmol/L (135-149)
[2022-11-25 18:52] LABS: Anion Gap 5 mEq/L (7-15); Bilirubin Total* 0.3 mg/dL (0.1-1.5); Carbon Dioxide* 26 mmol/L (20-32); Creatinine* 0.5 mg/dL (0.5-1.5); Est. Creatinine Clearance* 121.13; Estimated Glomerular Filt Rate 114 ml/min
[2022-11-25 18:53] LABS: Alanine Aminotransferase* 17 U/L (4-35); Alkaline Phosphatase* 84 U/L (40-150); Aspartate Amino Transferase* 28 U/L (12-35); Blood Urea Nitrogen* 5 mg/dL (7-30); Calcium* 8.9 mg/dL (8.4-10.6); Glucose* 79 mg/dL (60-115); Lipase* 254 U/L (23-300); Total Protein* 6.8 g/dL (6.0-8.3)
[2022-11-25 19:03] LABS: HCG Qualitative Serum* Negative (Negative)
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
[2022-11-25] MEDS: IBUPROFEN 100 MG/5 ML SUSP 600 MG PO (19:34)
--- OUTSIDE RECORDS SUMMARY | 2022-11-25 21:14 | XMS_ITS | Patient Health Record ---
Author Name Unknown Organization [facility] 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 - Primary [address] [place] [address] 11/25/2021 Jared Pratt [facility] - Primary [address] [place] [phone] 12/13/2021 [place] [facility] - Primary [address] [place] [phone] 02/18/2022 Jared Pratt Post-traumatic stress disorder, chronic F43.12 ASSESSMENTS Encounter Date Diagnosis Assessment Notes Treatment Notes Treatment Clinical Notes 02/18/2022 Post-traumatic stress disorder, chronic (ICD-10 - F43.12) Records reviewed with pt. Improved with cannabis. Recertified for medical cannabis on [facility] cannabis website according to [place] law PLAN OF TREATMENT Next Appt Details Provider Name:Jared Pratt , 12/22/2022 11:45:00 AM, [address], [place], [address], Insurance Providers Payer Name Payer Address Payer Phone Subscriber Number Group Number Insured Name Patient Relationship to Insured Coverage Start Date Coverage End Date [employer] [address] [address] [place] [address] [id number] Korina Soto Self - patient is the insured MEDICAL (GENERAL) HISTORY Medical History History ICD Code anxiety PTSD sleep apnea Hypothyroidism depression insomnia allergies parkinson's disease Surgical History Surgery Date(Month/Year)
== END 2022-11-25 21:17 | disposition home or self-care (01) ==
LOC: ED 21:12
PROVIDERS: Emergency Provider Emergency Medicine; PCP Family Medicine
DX: R10.9 Unspecified abdominal pain (principal); R19.7 Diarrhea, unspecified
CPT/HCPCS: 36415; 74176; 80053; 81001; 83605; 83690; 84703; 85025; 87493; 99283; 99284; A9270

== ENCOUNTER 2022-12-03 12:51 | Emergency (ER) | payer OTHER, SELFPAY ==
[2022-12-03 13:15] VITALS: BP 104/65; PULSE 68; RESP 14; TEMP 36.3; O2SAT 98; BMI 29.0
[2022-12-03 13:39] LABS: Appearance Urine Clear (Clear); Bilirubin Urine Negative (Negative); Blood Urine Negative (Negative); Color Urine Yellow (Yellow); Glucose Urine Negative (Negative); Ketones Urine Negative (Negative); Leukocyte Esterase Urine Negative (Negative); Nitrite Urine Negative (Negative); Protein Urine Negative (Negative); Specific Gravity Urine 1.015 (1.000-1.030); Urobilinogen Urine 0.2 (0.2-1.0); pH Urine 7.5 (5.0-8.5)
[2022-12-03 14:04] LABS: Bacteria Urine Few; RBC Urine 0-2 (0-2); Squamous Epithelial Cell Urine Few (None-Few); WBC Urine 0-2 (0-5)
[2022-12-03 15:03] LABS: H pylori Ag Stool* POSITIVE (Negative)
--- NOTE | 2022-12-03 15:24 | ED.ABDPAIN ---
HPI - Abdominal Pain General Time Seen by Provider: 15:24 Date Seen: 12/03/22 Chief Complaint: Abdominal Pain Stated Complaint: Lower back/abdominal pain Time Seen by Provider: 12/03/22 15:01 Source: patient and RN notes reviewed Mode of arrival: ambulatory Limitations: no limitations History of Present Illness HPI narrative: This 52-year-old female his coming in with fall smelling stools, abdominal pain, stomach upset and nausea. She endorses heartburn symptoms. She complained of back pain with this, she states she just does not feel good. She has never been treated for C difficile colitis or H pylori before. Her dad has had C difficile before. 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 Patient and I have agreed to not discuss her recurrent scalp infections in her hair as we do have differing opinions of this. She was in on 11/25 in did have workup. No fevers. Patient did bring in a stool sample and we did have it run for C difficile and H pylori. By the time I did see Ear was known that the H pylori was positive. She had questions about this, did review with her that it was an infection within the intestines/stomach. It is known to be linked with ulcer disease. She is on omeprazole but believes she is only taking 20 mg daily. Again, she has never been treated for this before. We discussed that it was a multiple drug regimen with 2 antibiotics. MD elicited complaint: abdominal pain Related Data Patient : No Home Medications Medication Instructions Recorded Confirmed Lactobacillus acidophilus 10 mg PO QDAY 12/23/21 12/23/21 buspirone 5 mg tablet 30 mg PO BID 12/23/21 10/31/22 cholecalciferol (vitamin D3) 50 2,000 unit PO DAILY 12/23/21 10/31/22 mcg (2,000 unit) tablet divalproex 125 mg tablet,delayed 500 mg PO QHS 12/23/21 10/31/22 release epinephrine 0.3 mg/0.3 mL 0.3 mg IM .As Needed PRN 12/23/21 10/31/22 injection, auto-injector fluconazole 150 mg tablet 150 mg PO ONCE 12/23/21 10/31/22 fluoxetine 20 mg capsule 40 mg PO DAILY 12/23/21 10/31/22 fluticasone propionate 230 1 inh inhalation BID 12/23/21 10/31/22 mcg-salmeterol 21 mcg/actuation HFA inhaler gabapentin 300 mg capsule 300 mg PO Q8H 12/23/21 10/31/22 levothyroxine 125 mcg tablet 125 mcg PO DAILY 12/23/21 10/31/22 lysine 500 mg tablet 500 mg PO Q12H 12/23/21 10/31/22 melatonin 3 mg capsule 6 mg PO .Bedtime as needed PRN 12/23/21 10/31/22 montelukast 10 mg tablet 10 mg PO .Bedtime 12/23/21 02/22/22 omeprazole 20 mg capsule,delayed 20 mg PO BID 12/23/21 02/22/22 release tizanidine 2 mg capsule 2 mg PO Q8H PRN 12/23/21 02/22/22 albuterol sulfate 90 mcg/actuation 2 inh inhalation Q4H PRN 02/22/22 10/31/22 aerosol inhaler benzoyl peroxide 10 % topical 1 applic topical DAILY 02/22/22 10/31/22 cleanser clonidine HCl 0.1 mg tablet 0.1 mg PO Q12H 02/22/22 10/31/22 fexofenadine 180 mg tablet 180 mg PO DAILY 02/22/22 10/31/22 (Allergy Relief (fexofenadine)) hydroxyzine HCl 25 mg tablet 25 mg PO Q6H PRN 02/22/22 02/22/22 ipratropium 0.5 mg-albuterol 3 mg 3 ml inhalation Q6-8H PRN 02/22/22 02/22/22 (2.5 mg base)/3 mL nebulization soln mometasone 50 mcg/actuation nasal 2 spray intranasal Q12H 02/22/22 02/22/22 spray Previous Rx's Medication Instructions Recorded prednisone 20 mg tablet 20 mg PO BID #10 tabs 05/20/22 dolutegravir 50 mg tablet (Tivicay) 50 mg PO DAILY #27 tabs 10/31/22 emtricitabine 200 mg-tenofovir 1 tab PO Q24H #27 tabs 10/31/22 disoproxil fumarate 300 mg tablet (Truvada) amoxicillin 500 mg tablet 1,000 mg (2 x 500 mg) PO BID 14 12/03/22 days #56 tabs clarithromycin 500 mg tablet 500 mg PO BID 14 days #28 tabs 12/03/22 Allergies Allergy/AdvReac Type Severity Reaction Status Date / Time hydrocodone Allergy Mild Rash Verified 10/31/22 19:06 hydromorphone [From Dilaudid] Allergy Mild itching Verified 10/31/22 19:06 pollen extracts Allergy Mild itching Verified 10/31/22 19:06 sulfamethoxazole Allergy Mild Rash Verified 10/31/22 19:06 [From Bactrim] trimethoprim [From Bactrim] Allergy Mild Rash Verified 10/31/22 19:06 wheat Allergy Mild gluten Verified 10/31/22 19:06 intolerance quetiapine [From Seroquel] Allergy Unknown Verified 10/31/22 19:06 acetaminophen Allergy Verified 10/31/22 19:06 oxycodone Allergy Verified 10/31/22 19:06 prednisone Allergy itching Verified 10/31/22 19:06 Tetracyclines Allergy Rash Verified 10/31/22 19:06 tramadol Allergy loss of Verified 10/31/22 19:06 memory trazodone Allergy memory loss Verified 10/31/22 19:06 venlafaxine Allergy sweating Verified 10/31/22 19:06 potassium sparing diuretics Allergy Uncoded 02/23/22 00:18 Review of Systems Status of ROS Reports: 6 or more systems reviewed and unremarkable except as noted in History and below [facility] Medical History Abnormal LFTs ?R79.89 - Other specified abnormal findings of blood chemistry (ICD-10) Hiatal hernia ?K44.9 - Diaphragmatic hernia without obstruction or gangrene (ICD-10) Seasonal allergic rhinitis due to pollen ?J30.1 - Allergic rhinitis due to pollen (ICD-10) PTSD (post-traumatic stress disorder) ?F43.10 - Post-traumatic stress disorder, unspecified (ICD-10) Chronic sinusitis ?J32.9 - Chronic sinusitis, unspecified (ICD-10) DDD (degenerative disc disease), cervical ?M50.30 - Other cervical disc degeneration, unspecified cervical region (ICD-10) Adjustment disorder with depressed mood ?F43.21 - Adjustment disorder with depressed mood (ICD-10) Tachycardia, unspecified ?R00.0 - Tachycardia, unspecified (ICD-10) Reflux esophagitis ?K21.00 - Gastro-esophageal reflux disease with esophagitis, without bleeding (ICD-10) KEE (nonalcoholic steatohepatitis) ?K75.81 - Nonalcoholic steatohepatitis (KEE) (ICD-10) Mixed hyperlipidemia ?E78.2 - Mixed hyperlipidemia (ICD-10) Migraine ?G43.909 - Migraine, unspecified, not intractable, without status migrainosus (ICD-10) Major depression, recurrent ?F33.9 - Major depressive disorder, recurrent, unspecified (ICD-10) Hypothyroidism, acquired ?E03.9 - Hypothyroidism, unspecified (ICD-10) Generalized anxiety disorder ?F41.1 - Generalized anxiety disorder (ICD-10) Diaphragmatic hernia without mention of obstruction or gangrene ?K44.9 - Diaphragmatic hernia without obstruction or gangrene (ICD-10) Cystic acne ?L70.0 - Acne vulgaris (ICD-10) Chondromalacia of both patellae ?M22.41 - Chondromalacia patellae, right knee (ICD-10) ?M22.42 - Chondromalacia patellae, left knee (ICD-10) Celiac disease ?K90.0 - Celiac disease (ICD-10) Anxiety ?F41.9 - Anxiety disorder, unspecified (ICD-10) Anemia ?D64.9 - Anemia, unspecified (ICD-10) Tobacco abuse ?Z72.0 - Tobacco use (ICD-10) Palpitations ?R00.2 - Palpitations (ICD-10) Osteoarthritis of patellofemoral joints of both knees ?M17.0 - Bilateral primary osteoarthritis of knee (ICD-10) Methicillin resistant Staphylococcus aureus infection ?A49.02 - Methicillin resistant Staphylococcus aureus infection, unspecified site (ICD-10) History of methicillin resistant Staphylococcus aureus infection ?Z86.14 - Personal history of Methicillin resistant Staphylococcus aureus infection (ICD-10) Gastroesophageal reflux disease ?K21.9 - Gastro-esophageal reflux disease without esophagitis (ICD-10) Dermatitis ?L30.9 - Dermatitis, unspecified (ICD-10) Chronic low back pain ?M54.50 - Low back pain, unspecified (ICD-10) ?G89.29 - Other chronic pain (ICD-10) Asthma ?J45.909 - Unspecified asthma, uncomplicated (ICD-10) Asthma (11/27/12) ?J45.909 - Unspecified asthma, uncomplicated (ICD-10) Surgical History [place] teeth extracted ?K08.409 - Partial loss of teeth, unspecified cause, unspecified class (ICD-10) Social History Smoking Status: Current every day smoker What tobacco products do you use: cigarettes Do you use any of these nicotine containing products: None Second hand tobacco smoke exposure: No How often do you have a drink containing alcohol: monthly or less How often do you have six or more drinks on one occasion: Never AUDIT-C Alcohol total score: 1 Non-prescribed substance use: marijuana (any form) service: Yes Exam Const: Vital Signs, click to edit/add: Vital Signs - 24 hr 12/03/22 13:15 12/03/22 15:33 Temperature 97.4 F L Pulse Rate [Pulse Oximeter] 68 60 Respiratory Rate 14 18 Blood Pressure [Ri ght Upper Arm] 104/65 100/49 L Pulse Oximetry 98 97 Oxygen Delivery Me thod Room Air Room Air Pleasant 52-year-old female that is alert, interactive, no apparent distress. I see no evidence of any scalp infection but admittedly did not go through her hair. Face is atraumatic. Able to speak in complete sentences. Lungs are clear with good air entry, no wheezing or crackles. CV regular rate and rhythm, no murmur, normal S1-S2. Abdomen is soft, nontender, nondistended, absolutely no organomegaly or masses, no rebound or guarding. Documenting provider has reviewed patient's vital signs: yes Course Course ED Course: Have reviewed positive H pylori status and treatment for this. Did go on up-to-date and review the current recommendations. She has omeprazole, will add an amoxicillin and clarithromycin. Did recommend that we await for the C difficile to come back 1st. We certainly would not want to undertake treatment with multiple antibiotics for H pylori if her C difficile is positive. Will get baseline labs to ensure no significant changes. Reevaluation(s) Reevaluation #1: Did review that her C difficile is negative. Labs are reassuring. Vital Signs Vital signs: Initial Vital Signs Temperature 97.4 F L 12/03/22 13:15 Temperature Source Temporal Artery Scan 12/03/22 13:15 Pulse Rate 68 12/03/22 13:15 Pulse Rhythm Regular 12/03/22 13:15 Respiratory Rate 14 12/03/22 13:15 Blood Pressure 104/65 12/03/22 13:15 Blood Pressure Mean 78 12/03/22 13:15 Blood Pressure Position Sitting 12/03/22 13:15 Pulse Oximetry 98 12/03/22 13:15 Oxygen Delivery Method Room Air 12/03/22 13:15 Vital Signs Temperature 97.4 F L 12/03/22 13:15 Pulse Rate 68 12/03/22 13:15 Respiratory Rate 14 12/03/22 13:15 Blood Pressure 104/65 12/03/22 13:15 Pulse Oximetry 98 12/03/22 13:15 Oxygen Delivery Method Room Air 12/03/22 13:15 Temperature 97.4 F L 12/03/22 16:40 Pulse Rate 60 12/03/22 16:40 Respiratory Rate 18 12/03/22 16:40 Blood Pressure 100/49 L 12/03/22 16:40 Pulse Oximetry 97 12/03/22 15:33 Oxygen Delivery Method Room Air 12/03/22 15:33 MDM - Abdominal Pain Lab Data Attestation: I reviewed the patient's lab results. Labs: Lab Results 12/03/22 12/03/22 12/03/22 Range/Units 13:31 13:40 15:48 WBC 6.40 (4.50-11.00) K/uL RBC 4.43 (4.00-5.20) m/uL Hgb 11.4 L (12.0-16.0) gm/dL Hct 35.9 (33.0-51.0) % MCV 81 (80-100) fL MCH 26 (26-34) pg MCHC 32 (32-36) gm/dL RDW Coeff of Tori 14.7 (11.5-15.5) % Plt Count 446 H (140-440) K/uL Neut % (Auto) 46.1 (42.0-72.0) % Lymph % (Auto) 39.2 (20-44) % Nance % (Auto) 6.9 (0.0-11.0) % Eos % (Auto) 7.0 (0.0-7.0) % Baso % (Auto) 0.6 (0.0-3.0) % Neut # (Auto) 2.95 (1.7-7.0) K/uL Lymph # (Auto) 2.51 (0.90-2.90) K/uL Nance # (Auto) 0.40 (0.00-0.90) K/UL Eos # (Auto) 0.45 (0.00-0.50) K/uL Baso # (Auto) 0.04 (0.00-0.30) K/uL Abs Immat Gran (auto) 0.01 (0.00-0.30) K/uL Imm/Tot Granulo (auto) 0.2 % Sodium 138 (135-149) mmol/L Potassium 4.4 (3.6-5.1) mmol/L Chloride 106 (96-114) mmol/L Carbon Dioxide 29 (20-32) mmol/L Anion Gap 3 L (7-15) mEq/L BUN 6 L (7-30) mg/dL Creatinine 0.4 L (0.5-1.5) mg/dL Estimated Creat Clear 126.97 Estimated GFR 121 ml/min Glucose 73 (60-115) mg/dL Lactate 1.1 (0.5-1.9) mmol/L Calcium 9.1 (8.4-10.6) mg/dL Total Bilirubin 0.3 (0.1-1.5) mg/dL AST 31 (12-35) U/L ALT 20 (4-35) U/L Alkaline Phosphatase 77 (40-150) U/L C-Reactive Protein 0.5 (0.5-1.0) mg/dL Total Protein 6.6 (6.0-8.3) g/dL Albumin 3.8 (3.3-5.0) g/dL Urine Color Yellow (Yellow) Urine Appearance Clear (Clear) Urine pH 7.5 (5.0-8.5) Ur Specific [place] 1.015 (1.000-1.030) Urine Protein Negative (Negative) Urine Glucose (UA) Negative (Negative) Urine Ketones Negative (Negative) Urine Blood Negative (Negative) Urine Nitrite Negative (Negative) Urine Bilirubin Negative (Negative) Urine Urobilinogen 0.2 (0.2-1.0) Ur Leukocyte Esterase Negative (Negative) Urine RBC 0-2 (0-2) Urine WBC 0-2 (0-5) Ur Squamous Epith Cells Few (None-Few) Urine Bacteria Few A (None) Stl C. diff Tox B Gene Negative (Negative) Stl C. diff [id number] PRESUMPTIVE NEGATIVE (Negative) Stool H. pylori Ag POSITIVE A (Negative) Critical Care Time Critical Care Time Critical Care Time: No Discharge Plan Discharge Clinical Impression: Helicobacter pylori (H. pylori) infection Patient Disposition: Home, Self-Care Condition: Stable Instructions: Helicobacter Pylori (ED) Additional Instructions: Recommend stopping Keflex and starting the treatment for the H pylori which will be 40 mg of omeprazole daily, amoxicillin and clarithromycin per prescription. It is important to complete this treatment to a retic hit the H pylori. You will need to follow up in clinic after 4 weeks or more from completion of antibiotic therapy. You are to hold the omeprazole for 1-2 weeks prior to testing. Follow up in clinic this week for recheck with your primary care provider. Activity Level: Activity as Tolerated Prescriptions: New amoxicillin 500 mg tablet 1,000 mg PO BID 14 Days Qty: 56 0RF clarithromycin 500 mg tablet 500 mg PO BID 14 Days Qty: 28 0RF No Action cholecalciferol (vitamin D3) 50 mcg (2,000 unit) tablet 2,000 unit PO DAILY fluticasone propion-salmeterol 230-21 mcg/actuation HFA aerosol inhaler 1 inh inhalation BID fluoxetine 20 mg capsule 40 mg PO DAILY lysine 500 mg tablet 500 mg PO Q12H epinephrine 0.3 mg/0.3 mL auto-injector 0.3 mg IM .As Needed PRN montelukast 10 mg tablet 10 mg PO .Bedtime omeprazole 20 mg capsule,delayed release(DR/EC) 20 mg PO BID divalproex 125 mg tablet,delayed release (DR/EC) 500 mg PO QHS levothyroxine 125 mcg tablet 125 mcg PO DAILY fluconazole 150 mg tablet 150 mg PO ONCE tizanidine 2 mg capsule 2 mg PO Q8H PRN gabapentin 300 mg capsule 300 mg PO Q8H buspirone 5 mg tablet 30 mg PO BID Lactobacillus acidophilus Capsule 10 mg PO QDAY melatonin 3 mg capsule 6 mg PO .Bedtime as needed PRN albuterol sulfate 90 mcg/actuation HFA aerosol inhaler 2 inh inhalation Q4H PRN ipratropium-albuterol 0.5 mg-3 mg(2.5 mg base)/3 mL solution for nebulization 3 ml inhalation Q6-8H PRN clonidine HCl 0.1 mg tablet 0.1 mg PO Q12H fexofenadine [Allergy Relief (fexofenadine)] 180 mg tablet 180 mg PO DAILY benzoyl peroxide 10 % cleanser 1 applic topical DAILY mometasone 50 mcg/actuation spray,non-aerosol 2 spray intranasal Q12H Rx Instructions: administer into each nostril hydroxyzine HCl 25 mg tablet 25 mg PO Q6H PRN emtricitabine-tenofovir (TDF) [Truvada] 200-300 mg tablet 1 tab PO Q24H Qty: 27 2RF Tivicay 50 mg tablet 50 mg PO DAILY Qty: 27 3RF prednisone 20 mg tablet 20 mg PO BID Qty: 10 0RF Follow Up/Referrals: Leyla Sands DO [Primary Care Provider] - Stand Alone Forms: [facility] Info Instructions
[2022-12-03 15:33] VITALS: BP 100/49; PULSE 60; RESP 18; O2SAT 97
[2022-12-03 15:41] LABS: C.Difficile Negative (Negative); CDIFFEPI 027 PRESUMPTIVE NEGATIVE (Negative)
[2022-12-03 15:55] LABS: Basophils Absolute Auto 0.04 K/uL (0.00-0.30); Basophils Percent Auto 0.6 % (0.0-3.0); Eosinophils Absolute Auto 0.45 K/uL (0.00-0.50); Hematocrit 35.9 % (33.0-51.0); Hemoglobin* 11.4 gm/dL (12.0-16.0); Immature Granulocytes Abs Auto 0.01 K/uL (0.00-0.30); Immature Granulocytes Pct Auto 0.2 %; Lymphocytes Absolute Auto 2.51 K/uL (0.90-2.90); Lymphocytes Percent Auto 39.2 % (20-44); Mean Corpuscular HGB Conc 32 gm/dL (32-36); Mean Corpuscular Hemoglobin 26 pg (26-34); Mean Corpuscular Volume 81 fL (80-100); Monocytes Percent Auto 6.9 % (0.0-11.0); Neutrophils Absolute Auto 2.95 K/uL (1.7-7.0); Neutrophils Percent Auto 46.1 % (42.0-72.0); Platelet Count* 446 K/uL (140-440); RDW Coefficient of Variation % 14.7 % (11.5-15.5); Red Blood Count 4.43 m/uL (4.00-5.20)
[2022-12-03 15:56] LABS: Lactate* 1.1 mmol/L (0.5-1.9)
[2022-12-03 16:00] LABS: Slide Review Reflex No
[2022-12-03 16:12] LABS: Albumin* 3.8 g/dL (3.3-5.0); Chloride* 106 mmol/L (96-114); Sodium* 138 mmol/L (135-149)
[2022-12-03 16:13] LABS: Potassium* 4.4 mmol/L (3.6-5.1)
[2022-12-03 16:15] LABS: Alkaline Phosphatase* 77 U/L (40-150); Anion Gap 3 mEq/L (7-15); Aspartate Amino Transferase* 31 U/L (12-35); Bilirubin Total* 0.3 mg/dL (0.1-1.5); Carbon Dioxide* 29 mmol/L (20-32); Creatinine* 0.4 mg/dL (0.5-1.5); Est. Creatinine Clearance* 126.97; Estimated Glomerular Filt Rate 121 ml/min
[2022-12-03 16:16] LABS: Alanine Aminotransferase* 20 U/L (4-35); Blood Urea Nitrogen* 6 mg/dL (7-30); Calcium* 9.1 mg/dL (8.4-10.6); Glucose* 73 mg/dL (60-115); Total Protein* 6.6 g/dL (6.0-8.3)
[2022-12-03 16:18] LABS: C Reactive Protein* 0.5 mg/dL (0.5-1.0)
[2022-12-03 16:40] VITALS: BP 100/49; PULSE 60; RESP 18; TEMP 36.3
== END 2022-12-03 16:41 | disposition home or self-care (01) ==
PROVIDERS: Emergency Medicine; Emergency Provider Family Medicine; PCP Family Medicine
DX: B96.81 Helicobacter pylori [H. pylori] as the cause of diseases classified elsewhere (principal)
CPT/HCPCS: 36415; 80053; 81001; 83605; 85025; 86140; 87086; 87338; 87493; 99283; 99284

== ENCOUNTER 2022-12-15 01:23 | Outpatient (CLI) | payer OTHER, SELFPAY ==
--- OUTSIDE RECORDS SUMMARY | 2023-01-13 03:39 | XMS_ITS | Patient Health Record ---
Author Name Unknown Organization [facility] - Primary Address [address] [place] [address] [place] [address] Care Team Providers Care Unix Developer Name Role Phone Different, PCP Primary Care Provider Jared Watts Unavailable [phone] ALLERGIES Allergen (clinical drug ingredient) Drug/Non Drug Allergy documented on EMR Reaction Allergy Type Onset Date Status trazodone memory problem Drug Allergy Ac tive hydrocodone itching Drug Allergy Activ e Percocet stomach upset Drug Allergy Act fermin REASON FOR REFERRAL No Information MEDICATIONS Medication SIG (Take, Route, Frequency, Duration) Notes Start Date End Date Status FLUoxetine 40 mg 1 cap(s) orally once a day for 30 day(s) Active Wixela Inhub 100 mcg-50 mcg 1 INH inhaled 2 times a day for 30 day(s) Active tiZANidine 2 mg 2 tab(s) orally ever y 8 hours for 30 day(s) Active levothyroxine 125 mcg (0.125 mg) 1 tab(s) orally once a day Active divalproex sodium 500 mg 1 tab(s) orally 3 times a day for 30 day(s) Active primidone 50 mg 1 tab(s) orally 1 times a day Active busPIRone 30 mg 1 tab(s) orally 2 times a day for 30 day(s) Not-Taking montelukast 10 mg 1 tab(s) orally once a day for 30 day(s) Active gabapentin 300 mg 1 cap(s) orally 3 times a day for 30 day(s) Active cloNIDine 0.1 mg 1 tab(s) orally 2 times a day for 30 day(s) Active SOCIAL HISTORY Tobacco Use: Social History [...] chronic (F43.12) Active confirmed Posttraumatic stress disorder (77594949) Problem Headache, unspecified (R51.9) Active confirmed Headache ([id number]) Encounters Encounter Location Date Provider Diagnosis [facility] - Primary [address] [place] [address] 02/18/2022 Jared Pratt Post-traumatic stress disorder, chronic F43.12 [facility] - Primary [address] [place] [id number] 12/22/2022 Jared Pratt Post-traumatic stress disorder, chronic F43.12 ASSESSMENTS Encounter Date Diagnosis Assessment Notes Treatment Notes Treatment Clinical Notes 12/22/2022 Post-traumatic stress disorder, chronic (ICD-10 - F43.12) Records reviewed with pt. Improved with cannabis. Recertified for medical cannabis on [facility] cannabis website according to [place] law 02/18/2022 Post-traumatic stress disorder, chronic (ICD-10 - F43.12) Records reviewed with pt. Improved with cannabis. Recertified for medical cannabis on [facility] cannabis website according to [place] law PLAN OF TREATMENT Next Appt Details Provider Name:Jared Pratt , 12/21/2023 11:30:00 AM, [address], [facility], [place], [address], Insurance Providers Payer Name Payer Address Payer Phone Subscriber Number Group Number Insured Name Patient Relationship to Insured Coverage Start Date Coverage End Date [facility] Medicare [address] [address] [place] [address] [id number] Korina Soto Self - patient is the insured MEDICAL (GENERAL) HISTORY Medical History History ICD Code anxiety PTSD sleep apnea Hypothyroidism depression insomnia allergies parkinson's disease Surgical History Surgery Date(Month/Year) colonoscopy 11/2022
== END 2022-12-15 01:24 | disposition home or self-care (01) ==
PROVIDERS: PCP Family Medicine; Visit Provider Family Medicine
DX: R42 Dizziness and giddiness (principal)
CPT/HCPCS: A0425; A0427

== ENCOUNTER 2022-12-15 01:39 | Emergency (ER) | payer OTHER, SELFPAY ==
[2022-12-15] VITALS (7 sets, daily range): BP systolic 123–139; BP diastolic 67–88; PULSE 84–93; RESP 16; TEMP 36.7; O2SAT 92–98; BMI 25.7
--- NOTE | 2022-12-15 01:54 | ED.GENADULT ---
HPI - General Adult General Time Seen by Provider: 01:54 Date Seen: 12/15/22 Chief complaint: Weakness Stated complaint: weakness Time Seen by Provider: 12/15/22 01:54 Source: patient and RN notes reviewed Mode of arrival: ambulatory Limitations: altered mental status (Very sleepy) History of Present Illness HPI narrative: Diya is a 52-year-old female with a history of celiac disease non compliant with diet, who comes to the emergency room with complaints of 1 hour of dizziness and feeling weak per nursing report. However, patient is primary complaint when I enter the room is that her tongue was bleeding earlier tonight. She also complains of significant fatigue and feeling very tired. She denies that the room is spinning. She denies taking any medications for sleep tonight but upon further discussion she does note that she may have taken some Benadryl earlier in the evening. She has not had fevers or chills. She denies chest pain or shortness of breath. She notes that she does have some pain in her bottom and describes recent antibiotic treatment for H pylori. However when I request to examine her buttocks and rectal area she states that the pain is up inside and there is nothing on the outside that hurts her. She denies any alcohol use. She complains about a bad taste in her mouth. She has not had any diarrhea nor constipation. States she really has not had a lot of stools because she is not eating very much. No recent trauma. History is very challenging this evening as she is going from different complaints and her complaints are not consistent with what she initially had told nursing. Patient tells me that she did get short of breath at home but here she is feeling better. She also states that her heart was racing but she did not take her pulse. Patient notes she just completed amoxicillin and clarithromycin for H pylori. She notes that she has been taking probiotics but feels that she is developed a yeast infection. Related Data Home Medications Medication Instructions Recorded Confirmed Lactobacillus acidophilus 10 mg PO QDAY 12/23/21 12/23/21 buspirone 5 mg tablet 30 mg PO BID 12/23/21 10/31/22 cholecalciferol (vitamin D3) 50 2,000 unit PO DAILY 12/23/21 10/31/22 mcg (2,000 unit) tablet divalproex 125 mg tablet,delayed 500 mg PO QHS 12/23/21 10/31/22 release epinephrine 0.3 mg/0.3 mL 0.3 mg IM .As Needed PRN 12/23/21 10/31/22 injection, auto-injector fluconazole 150 mg tablet 150 mg PO ONCE 12/23/21 10/31/22 fluoxetine 20 mg capsule 40 mg PO DAILY 12/23/21 10/31/22 fluticasone propionate 230 1 inh inhalation BID 12/23/21 10/31/22 mcg-salmeterol 21 mcg/actuation HFA inhaler gabapentin 300 mg capsule 300 mg PO Q8H 12/23/21 10/31/22 levothyroxine 125 mcg tablet 125 mcg PO DAILY 12/23/21 10/31/22 lysine 500 mg tablet 500 mg PO Q12H 12/23/21 10/31/22 melatonin 3 mg capsule 6 mg PO .Bedtime as needed PRN 12/23/21 10/31/22 montelukast 10 mg tablet 10 mg PO .Bedtime 12/23/21 02/22/22 omeprazole 20 mg capsule,delayed 20 mg PO BID 12/23/21 02/22/22 release tizanidine 2 mg capsule 2 mg PO Q8H PRN 12/23/21 02/22/22 albuterol sulfate 90 mcg/actuation 2 inh inhalation Q4H PRN 02/22/22 10/31/22 aerosol inhaler benzoyl peroxide 10 % topical 1 applic topical DAILY 02/22/22 10/31/22 cleanser clonidine HCl 0.1 mg tablet 0.1 mg PO Q12H 02/22/22 10/31/22 fexofenadine 180 mg tablet 180 mg PO DAILY 02/22/22 10/31/22 (Allergy Relief (fexofenadine)) hydroxyzine HCl 25 mg tablet 25 mg PO Q6H PRN 02/22/22 02/22/22 ipratropium 0.5 mg-albuterol 3 mg 3 ml inhalation Q6-8H PRN 02/22/22 02/22/22 (2.5 mg base)/3 mL nebulization soln mometasone 50 mcg/actuation nasal 2 spray intranasal Q12H 02/22/22 02/22/22 spray Previous Rx's Medication Instructions Recorded prednisone 20 mg tablet 20 mg PO BID #10 tabs 05/20/22 dolutegravir 50 mg tablet (Tivicay) 50 mg PO DAILY #27 tabs 10/31/22 emtricitabine 200 mg-tenofovir 1 tab PO Q24H #27 tabs 10/31/22 disoproxil fumarate 300 mg tablet (Truvada) amoxicillin 500 mg tablet 1,000 mg (2 x 500 mg) PO BID 14 12/03/22 days #56 tabs clarithromycin 500 mg tablet 500 mg PO BID 14 days #28 tabs 12/03/22 Allergies Allergy/AdvReac Type Severity Reaction Status Date / Time hydrocodone Allergy Mild Rash Verified 10/31/22 19:06 hydromorphone [From Dilaudid] Allergy Mild itching Verified 10/31/22 19:06 pollen extracts Allergy Mild itching Verified 10/31/22 19:06 sulfamethoxazole Allergy Mild Rash Verified 10/31/22 19:06 [From Bactrim] trimethoprim [From Bactrim] Allergy Mild Rash Verified 10/31/22 19:06 wheat Allergy Mild gluten Verified 10/31/22 19:06 intolerance quetiapine [From Seroquel] Allergy Unknown Verified 10/31/22 19:06 acetaminophen Allergy Verified 10/31/22 19:06 oxycodone Allergy Verified 10/31/22 19:06 prednisone Allergy itching Verified 10/31/22 19:06 Tetracyclines Allergy Rash Verified 10/31/22 19:06 tramadol Allergy loss of Verified 10/31/22 19:06 memory trazodone Allergy memory loss Verified 10/31/22 19:06 venlafaxine Allergy sweating Verified 10/31/22 19:06 potassium sparing diuretics Allergy Uncoded 02/23/22 00:18 Review of Systems Status of ROS: Reports: 10 or more systems reviewed and unremarkable except as noted in History and below Const: Reports: fatigue and malaise; Denies: fever, chills or night sweats Eyes: Denies: change in vision ENMT: Denies: throat pain, throat swelling or difficulty swallowing Cardio: Reports: shortness of breath with exertion; Denies: chest pain, swelling of feet/ankles or lightheadedness Resp: Reports: shortness of breath; Denies: cough or wheezing GI: Denies: difficulty swallowing : Denies: painful urination or urinary frequency Musculo: Denies: back pain Integ/Breast: Denies: rash Neuro: Reports: weakness in extremities and slurred speech; Denies: headache or numbness in extremities Psych: Reports: anxiety Endo: Reports: fatigue Allergy/Immuno: Denies: throat swelling or wheezing [facility] Medical History Abnormal LFTs ?R79.89 - Other specified abnormal findings of blood chemistry (ICD-10) Hiatal hernia ?K44.9 - Diaphragmatic hernia without obstruction or gangrene (ICD-10) Seasonal allergic rhinitis due to pollen ?J30.1 - Allergic rhinitis due to pollen (ICD-10) PTSD (post-traumatic stress disorder) ?F43.10 - Post-traumatic stress disorder, unspecified (ICD-10) Chronic sinusitis ?J32.9 - Chronic sinusitis, unspecified (ICD-10) DDD (degenerative disc disease), cervical ?M50.30 - Other cervical disc degeneration, unspecified cervical region (ICD-10) Adjustment disorder with depressed mood ?F43.21 - Adjustment disorder with depressed mood (ICD-10) Tachycardia, unspecified ?R00.0 - Tachycardia, unspecified (ICD-10) Reflux esophagitis ?K21.00 - Gastro-esophageal reflux disease with esophagitis, without bleeding (ICD-10) KEE (nonalcoholic steatohepatitis) ?K75.81 - Nonalcoholic steatohepatitis (KEE) (ICD-10) Mixed hyperlipidemia ?E78.2 - Mixed hyperlipidemia (ICD-10) Migraine ?G43.909 - Migraine, unspecified, not intractable, without status migrainosus (ICD-10) Major depression, recurrent ?F33.9 - Major depressive disorder, recurrent, unspecified (ICD-10) Hypothyroidism, acquired ?E03.9 - Hypothyroidism, unspecified (ICD-10) Generalized anxiety disorder ?F41.1 - Generalized anxiety disorder (ICD-10) Diaphragmatic hernia without mention of obstruction or gangrene ?K44.9 - Diaphragmatic hernia without obstruction or gangrene (ICD-10) Cystic acne ?L70.0 - Acne vulgaris (ICD-10) Chondromalacia of both patellae ?M22.41 - Chondromalacia patellae, right knee (ICD-10) ?M22.42 - Chondromalacia patellae, left knee (ICD-10) Celiac disease ?K90.0 - Celiac disease (ICD-10) Anxiety ?F41.9 - Anxiety disorder, unspecified (ICD-10) Anemia ?D64.9 - Anemia, unspecified (ICD-10) Tobacco abuse ?Z72.0 - Tobacco use (ICD-10) Palpitations ?R00.2 - Palpitations (ICD-10) Osteoarthritis of patellofemoral joints of both knees ?M17.0 - Bilateral primary osteoarthritis of knee (ICD-10) Methicillin resistant Staphylococcus aureus infection ?A49.02 - Methicillin resistant Staphylococcus aureus infection, unspecified site (ICD-10) History of methicillin resistant Staphylococcus aureus infection ?Z86.14 - Personal history of Methicillin resistant Staphylococcus aureus infection (ICD-10) Gastroesophageal reflux disease ?K21.9 - Gastro-esophageal reflux disease without esophagitis (ICD-10) Dermatitis ?L30.9 - Dermatitis, unspecified (ICD-10) Chronic low back pain ?M54.50 - Low back pain, unspecified (ICD-10) ?G89.29 - Other chronic pain (ICD-10) Asthma ?J45.909 - Unspecified asthma, uncomplicated (ICD-10) Asthma (11/27/12) ?J45.909 - Unspecified asthma, uncomplicated (ICD-10) Surgical History U[place] teeth extracted ?K08.409 - Partial loss of teeth, unspecified cause, unspecified class (ICD-10) Social History Smoking Status: Current every day smoker What tobacco products do you use: cigarettes Do you use any of these nicotine containing products: None Second hand tobacco smoke exposure: No How often do you have a drink containing alcohol: monthly or less How often do you have six or more drinks on one occasion: Never AUDIT-C Alcohol total score: 1 Non-prescribed substance use: marijuana (any form) service: Yes Exam Narrative: Exam Narrative: Patient is sleeping when I enter the room as the IV is being placed. She opens her eyes to my voice. GCS 14. EOM is full. Pupils are equal. They are reactive. Head is atraumatic normocephalic. Heart with regular rate and rhythm. No murmurs. Lungs are clear bilaterally. Abdomen shows some discomfort in the lower abdomen no focal tenderness. Patient declines examination of rectal area. Lower extremities without edema. She is moving all of her extremities. Const: Vital Signs, click to edit/add: Vital Signs - 24 hr 12/15/22 01:44 12/15/22 02:00 12/15/22 02:03 Temperature 98.0 F Pulse Rate 86 Pulse Rate [Pulse Oximeter] 91 Respiratory Rate 16 16 Blood Pressure 123/67 Blood Pressure [Le ft Upper Arm] 139/81 Pulse Oximetry 96 98 92 Oxygen Delivery Me thod Room Air Documenting provider has reviewed patient's vital signs: yes Course Course ED Course: Of patient presents tonight with sleepiness complaints that are variable including tongue bleeding, weakness, dizziness, shortness of breath, racing heart, decreased stooling and poor taste in mouth. She was seen yesterday for complaints of foul-smelling stools. She was treated for H pylori and Keflex which she had been on for a scalp infection was changed to amoxicillin and clarithromycin. She was alert and oriented yesterday. She does admit to me that she is not watching her diet and has had week containing products. At this time differential diagnosis is quite broad. We will do urinalysis and check her urine for drug screen given her presentation. Would also check CBC, comprehensive panel, CRP as well as EKG and troponin. At this time her vital signs are stable and EKG is reassuring. Will consider further imaging if lab values are abnormal. Reevaluation(s) Reevaluation #1: Diya is feeling better after 1 L of fluids. When I enter the room she is now sitting up alert and oriented. She is worried about bleeding from her tongue although the tongue has not been bleeding m[place]cl[place]on she has been here. I did tell her that I did order a B12 test but that would not be back tonight. Given her history of celiac and noncompliance she is likely a very poor absorber of nutrients. She is alert and oriented with a GCS of 15 at this time. Vital Signs Vital signs: Initial Vital Signs Temperature 98.0 F 12/15/22 01:44 Temperature Source Temporal Artery Scan 12/15/22 01:44 Pulse Rate 91 12/15/22 01:44 Respiratory Rate 16 12/15/22 01:44 Blood Pressure 139/81 12/15/22 01:44 Blood Pressure Mean 100 12/15/22 01:44 Blood Pressure Position Supine 12/15/22 01:44 Pulse Oximetry 96 12/15/22 01:44 Oxygen Delivery Method Room Air 12/15/22 01:44 Vital Signs Temperature 98.0 F 12/15/22 01:44 Pulse Rate 91 12/15/22 01:44 Respiratory Rate 16 12/15/22 01:44 Blood Pressure 139/81 12/15/22 01:44 Pulse Oximetry 96 12/15/22 01:44 Oxygen Delivery Method Room Air 12/15/22 01:44 Temperature 98.0 F 12/15/22 01:44 Pulse Rate 86 12/15/22 02:03 Respiratory Rate 16 12/15/22 02:03 Blood Pressure 123/67 12/15/22 02:03 Pulse Oximetry 92 12/15/22 02:03 Oxygen Delivery Method Room Air 12/15/22 01:44 Medical Decision Making MDM Narrative Medical decision making narrative: 1. Influenza a-patient has tested positive for influenza, negative for COVID. She has a normal white count and minimally elevated CRP at 1.3. She is oxygenating well and her lung sounds are clear. Initially she stated that her shortness of breath at home had just started within the last hour but she now tells me that maybe she has been coughing for a couple days. It is just really hard to tell the onset of her symptoms but certainly the weakness that she describes was within the last hour. I spoke to her about the use of Tamiflu and she is in agreement that she will take this. I did state that she would likely not be feeling well over the next few days. She does describe now that she had some diaphoresis and chills last evening. Thus I do believe we are starting Tamiflu within the 48 hour time frame that is recommended. No evidence of hypoxia at this time. She is now mentally in normal. She did not receive her influenza vaccination this year. 2. Hypokalemia-potassium was 3.0. We replace with 50 micro equivalents of oral potassium. Magnesium normal at 2.1 3. Suspected yeast infection-patient describes vaginal discharge that is white and is itchy. She has just finished antibiotics for H pylori. I did ask her if there is any risk for sexually transmitted infection and she denies. I did ask if she would like me to do a pelvic exam and she declined. She is willing to take 1 dose of oral Diflucan here in the emergency room. If she has further problems she will follow up with her primary MD 4. Disposition- home at this time. Rest and push fluids. Return to the emergency room for shortness of breath, worsening symptoms and as needed. Medical Records Medical records reviewed: Yes I reviewed the patient's medical records Lab Data Lab results reviewed: Yes I reviewed the patient's lab results Labs: Lab Results 12/15/22 12/15/22 12/15/22 Range/Units 02:00 02:30 03:25 WBC 7.66 (4.50-11.00) K/uL RBC 4.97 (4.00-5.20) m/uL Hgb 12.9 (12.0-16.0) gm/dL Hct 39.5 (33.0-51.0) % MCV 80 (80-100) fL MCH 26 (26-34) pg MCHC 33 (32-36) gm/dL RDW Coeff of Tori 15.3 (11.5-15.5) % Plt Count 532 H (140-440) K/uL Neut % (Auto) 51.6 (42.0-72.0) % Lymph % (Auto) 36.9 (20-44) % [place] % (Auto) 9.0 (0.0-11.0) % Eos % (Auto) 1.7 (0.0-7.0) % Baso % (Auto) 0.4 (0.0-3.0) % Neut # (Auto) 3.95 (1.7-7.0) K/uL Lymph # (Auto) 2.83 (0.90-2.90) K/uL [place] # (Auto) 0.70 (0.00-0.90) K/UL Eos # (Auto) 0.13 (0.00-0.50) K/uL Baso # (Auto) 0.03 (0.00-0.30) K/uL Abs Immat Gran (auto) 0.03 (0.00-0.30) K/uL Imm/Tot Granulo (auto) 0.4 % Sodium 140 (135-149) mmol/L Potassium 3.0 L (3.6-5.1) mmol/L Chloride 105 (96-114) mmol/L Carbon Dioxide 20 (20-32) mmol/L Anion Gap 15 (7-15) mEq/L BUN 13 (7-30) mg/dL Creatinine 0.6 (0.5-1.5) mg/dL Estimated Creat Clear 96.86 Estimated GFR 109 ml/min Glucose 80 (60-115) mg/dL Lactate 0.9 (0.5-1.9) mmol/L Calcium 9.3 (8.4-10.6) mg/dL Magnesium 2.1 (1.5-2.6) mg/dL Total Bilirubin 0.5 (0.1-1.5) mg/dL AST 36 H (12-35) U/L ALT 19 (4-35) U/L Alkaline Phosphatase 89 (40-150) U/L C-Reactive Protein 1.3 H (0.5-1.0) mg/dL Total Protein 8.1 (6.0-8.3) g/dL Albumin 4.7 (3.3-5.0) g/dL Vitamin B12 749 (243-894) pg/mL Urine Color Yellow (Yellow) Urine Appearance Clear (Clear) Urine pH 6.5 (5.0-8.5) Ur Specific [place] >= 1.030 (1.000-1.030) Urine Protein Trace A (Negative) Urine Glucose (UA) Negative (Negative) Urine Ketones 1+ A (Negative) Urine Blood Negative (Negative) Urine Nitrite Negative (Negative) Urine Bilirubin Negative (Negative) Urine Urobilinogen 0.2 (0.2-1.0) Ur Leukocyte Esterase Negative (Negative) Urine RBC 0-2 (0-2) Urine WBC 0-2 (0-5) Ur Squamous Epith Cells Few (None-Few) Urine Bacteria None (None) Urine Opiates Screen Negative (Negative) Ur Oxycodone Screen Negative (Negative) Urine Methadone Screen Negative (Negative) Ur Propoxyphene Screen Negative (Negative) Ur Barbiturates Screen POSITIVE A (Negative) U Tricyclic Antidepress Negative (Negative) Ur Phencyclidine Scrn Negative (Negative) Ur Amphetamines Screen Negative (Negative) U Methamphetamines Scrn Negative (Negative) U Benzodiazepines Scrn POSITIVE A (Negative) Urine Cocaine Screen Negative (Negative) U Marijuana (THC) Screen POSITIVE A (Negative) Ur Drug Screen Comment See Note SARS-CoV-2 (PCR) Negative SARS-CoV-2 (Negative) Influenza Type A (PCR) POSITIVE PCR FLU A A (Negative) Influenza Type B (PCR) Negative PCR FLU B (Negative) RSV (PCR) Negative PCR RSV (Negative) Lab Acknowledgement Test Added POC Troponin I 0.00 L (0.01-0.04) ng/ml ECG Data Attestation: I personally reviewed and interpreted this ECG as follows: Interpretation: Sinus rhythm at a rate of 80. I do not note any acute ST or T-wave changes. Normal IN and QT segments. Discharge Plan Discharge Clinical Impression: Influenza A, Vaginal yeast infection, Acute hypokalemia Patient Disposition: Home, Self-Care Condition: Improved Additional Instructions: 1. You have influenza. Please start Tamiflu intake as directed. This prescription is in our [employer] vending machine in the front. Push fluids. Rest. Return to the emergency room for worsening symptoms. 2. Suspected yeast infection-you were treated with fluconazole in the emergency room. You should note improvement in the next 24 hours. Follow-up with your primary MD for ongoing symptoms. 3. Low potassium-he would treated for low potassium tonight. Make sure to include foods in your diet that are higher in potassium such as orange juice or potatoes. 4. Rest and push fluids. Return to the emergency room for worsening symptoms. Prescriptions: No Action cholecalciferol (vitamin D3) 50 mcg (2,000 unit) tablet 2,000 unit PO DAILY fluticasone propion-salmeterol 230-21 mcg/actuation HFA aerosol inhaler 1 inh inhalation BID fluoxetine 20 mg capsule 40 mg PO DAILY lysine 500 mg tablet 500 mg PO Q12H epinephrine 0.3 mg/0.3 mL auto-injector 0.3 mg IM .As Needed PRN montelukast 10 mg tablet 10 mg PO .Bedtime omeprazole 20 mg capsule,delayed release(DR/EC) 20 mg PO BID divalproex 125 mg tablet,delayed release (DR/EC) 500 mg PO QHS levothyroxine 125 mcg tablet 125 mcg PO DAILY fluconazole 150 mg tablet 150 mg PO ONCE tizanidine 2 mg capsule 2 mg PO Q8H PRN gabapentin 300 mg capsule 300 mg PO Q8H buspirone 5 mg tablet 30 mg PO BID Lactobacillus acidophilus Capsule 10 mg PO QDAY melatonin 3 mg capsule 6 mg PO .Bedtime as needed PRN albuterol sulfate 90 mcg/actuation HFA aerosol inhaler 2 inh inhalation Q4H PRN ipratropium-albuterol 0.5 mg-3 mg(2.5 mg base)/3 mL solution for nebulization 3 ml inhalation Q6-8H PRN clonidine HCl 0.1 mg tablet 0.1 mg PO Q12H fexofenadine [Allergy Relief (fexofenadine)] 180 mg tablet 180 mg PO DAILY benzoyl peroxide 10 % cleanser 1 applic topical DAILY mometasone 50 mcg/actuation spray,non-aerosol 2 spray intranasal Q12H Rx Instructions: administer into each nostril hydroxyzine HCl 25 mg tablet 25 mg PO Q6H PRN emtricitabine-tenofovir (TDF) [Truvada] 200-300 mg tablet 1 tab PO Q24H Qty: 27 2RF Tivicay 50 mg tablet 50 mg PO DAILY Qty: 27 3RF amoxicillin 500 mg tablet 1,000 mg PO BID 14 Days Qty: 56 0RF clarithromycin 500 mg tablet 500 mg PO BID 14 Days Qty: 28 0RF prednisone 20 mg tablet 20 mg PO BID Qty: 10 0RF Follow Up/Referrals: Leyla Sands DO [Primary Care Provider] - Stand Alone Forms: [facility] Info [facility]
[2022-12-15] MEDS: 0.9 % SODIUM CHLORIDE 1000 ml 1,000 ML IV (02:00)
[2022-12-15 02:13] LABS: Lactate* 0.9 mmol/L (0.5-1.9)
[2022-12-15 02:15] LABS: Basophils Absolute Auto 0.03 K/uL (0.00-0.30); Basophils Percent Auto 0.4 % (0.0-3.0); Eosinophils Absolute Auto 0.13 K/uL (0.00-0.50); Eosinophils Percent Auto 1.7 % (0.0-7.0); Hematocrit 39.5 % (33.0-51.0); Hemoglobin* 12.9 gm/dL (12.0-16.0); Immature Granulocytes Abs Auto 0.03 K/uL (0.00-0.30); Immature Granulocytes Pct Auto 0.4 %; Lymphocytes Absolute Auto 2.83 K/uL (0.90-2.90); Lymphocytes Percent Auto 36.9 % (20-44); Mean Corpuscular HGB Conc 33 gm/dL (32-36); Mean Corpuscular Hemoglobin 26 pg (26-34); Mean Corpuscular Volume 80 fL (80-100); Neutrophils Absolute Auto 3.95 K/uL (1.7-7.0); Neutrophils Percent Auto 51.6 % (42.0-72.0); Platelet Count* 532 K/uL (140-440); RDW Coefficient of Variation % 15.3 % (11.5-15.5); Red Blood Count 4.97 m/uL (4.00-5.20); White Blood Count* 7.66 K/uL (4.50-11.00)
[2022-12-15 02:18] LABS: Slide Review Reflex No
[2022-12-15 02:32] LABS: Albumin* 4.7 g/dL (3.3-5.0); Chloride* 105 mmol/L (96-114); Sodium* 140 mmol/L (135-149)
[2022-12-15 02:34] LABS: Creatinine* 0.6 mg/dL (0.5-1.5); Est. Creatinine Clearance* 96.86; Estimated Glomerular Filt Rate 109 ml/min
[2022-12-15 02:35] LABS: Alanine Aminotransferase* 19 U/L (4-35); Alkaline Phosphatase* 89 U/L (40-150); Anion Gap 15 mEq/L (7-15); Aspartate Amino Transferase* 36 U/L (12-35); Bilirubin Total* 0.5 mg/dL (0.1-1.5); Blood Urea Nitrogen* 13 mg/dL (7-30); Carbon Dioxide* 20 mmol/L (20-32); Glucose* 80 mg/dL (60-115); Total Protein* 8.1 g/dL (6.0-8.3)
[2022-12-15 02:36] LABS: Calcium* 9.3 mg/dL (8.4-10.6)
[2022-12-15 02:38] LABS: C Reactive Protein* 1.3 mg/dL (0.5-1.0)
[2022-12-15 02:42] LABS: Appearance Urine Clear (Clear); Bilirubin Urine Negative (Negative); Blood Urine Negative (Negative); Color Urine Yellow (Yellow); Glucose Urine Negative (Negative); Ketones Urine 1+ (Negative); Leukocyte Esterase Urine Negative (Negative); Nitrite Urine Negative (Negative); Protein Urine Trace (Negative); Specific Gravity Urine >= 1.030 (1.000-1.030); Urobilinogen Urine 0.2 (0.2-1.0); pH Urine 6.5 (5.0-8.5)
[2022-12-15 02:47] LABS: RBC Urine 0-2 (0-2); Squamous Epithelial Cell Urine Few (None-Few); WBC Urine 0-2 (0-5)
[2022-12-15 02:51] LABS: Amphetamine Screen Urine Negative (Negative); Barbiturate Screen Urine POSITIVE (Negative); Benzodiazepines Screen Urine POSITIVE (Negative); Cannabinoid Screen Urine POSITIVE (Negative); Cocaine Screen Urine Negative (Negative); Methadone Screen Urine Negative (Negative); Methamphetamines Screen Urine Negative (Negative); Opiate Screen Urine Negative (Negative); Oxycodone Screen Urine Negative (Negative); Phencyclidine Screen Urine Negative (Negative); Tricyclic Antidepressant Urine Negative (Negative)
[2022-12-15 02:53] LABS: PCR FLU A POSITIVE PCR FLU A (Negative); PCR FLU B Negative PCR FLU B (Negative); PCR RSV Negative PCR RSV (Negative)
[2022-12-15] MEDS: POTASSIUM BICARB 25 MEQ EFFERVESCENT TAB 50 MEQ PO (03:00)
[2022-12-15] MEDS: ONDANSETRON 2 MG/ML inj 4 MG IVP (03:00)
[2022-12-15 03:04] LABS: SARS PCR* Negative SARS-CoV-2 (Negative)
[2022-12-15 03:24] LABS: Vitamin B12* 749 pg/mL (243-894)
[2022-12-15 03:33] LABS: Magnesium* 2.1 mg/dL (1.5-2.6)
[2022-12-15] MEDS: FLUCONAZOLE 150 MG TABLET PO (03:46)
== END 2022-12-15 06:51 | disposition home or self-care (01) ==
PROVIDERS: Emergency Provider Family Medicine; PCP Family Medicine
DX: J10.1 Influenza due to other identified influenza virus with other respiratory manifestations (principal); B37.31 Acute candidiasis of vulva and vagina; E87.6 Hypokalemia
CPT/HCPCS: 36415; 80053; 80306; 81001; 82607; 83605; 83735; 84484; 85025; 86140; 87631; 93005; 94761; 96361; 96374; 99284; 99285; A9270; J2405; J7030

== ENCOUNTER 2023-02-25 17:41 | Emergency (ER) | payer OTHER, SELFPAY ==
[2023-02-25 17:47] VITALS: BP 106/70; PULSE 79; RESP 18; TEMP 36.6; O2SAT 98; BMI 29.7
--- NOTE | 2023-02-25 18:19 | ED.GENADULT ---
HPI - General Adult General Date Seen: 02/25/23 Chief complaint: Skin/Abscess/Foreign Body Stated complaint: infected wound on head Time Seen by Provider: 02/25/23 18:07 History of Present Illness HPI narrative: This is a 52-year-old female presenting to the ER [facility] with her mother for evaluation of inflamed, painful pustules on the left side of her scalp. She has a complicatedpast medical history including celiac disease (diagnosed by colonoscopy years ago), PTSD, depression, anxiety, esophagitis, hiatal hernia non alcoholic steatohepatitis, hyperlipidemia, migraine headaches, hypothyroidism, history of Abnormal LFTs, cervical degenerative disc disease , tobacco use, Osteoarthritis of patellofemoral joints of both knees, low back pain. She says that she has had trouble with these lesions on her scalp for a couple of years. 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 When they flare up they treat her with clindamycin sometimes topically and sometimes orally. The lesions never really go away. They been flaring up for the past few days. They are more painful. She also feels a little bit achy. Lesions are primarily on the left temporal scalp and a little bit on the left parietal scalp behind her ear. No clear explanation for why they flare up. Related Data Home Medications Medication Instructions Recorded Confirmed Lactobacillus acidophilus 10 mg PO QDAY 12/23/21 02/25/23 buspirone 5 mg tablet 30 mg PO BID 12/23/21 02/25/23 cholecalciferol (vitamin D3) 50 2,000 unit PO DAILY 12/23/21 02/25/23 mcg (2,000 unit) tablet divalproex 125 mg tablet,delayed 500 mg PO QHS 12/23/21 02/25/23 release epinephrine 0.3 mg/0.3 mL 0.3 mg IM .As Needed PRN 12/23/21 02/25/23 injection, auto-injector fluconazole 150 mg tablet 150 mg PO ONCE 12/23/21 02/25/23 fluoxetine 20 mg capsule 40 mg PO DAILY 12/23/21 02/25/23 fluticasone propionate 230 1 inh inhalation BID 12/23/21 02/25/23 mcg-salmeterol 21 mcg/actuation HFA inhaler gabapentin 300 mg capsule 300 mg PO Q8H 12/23/21 02/25/23 levothyroxine 125 mcg tablet 125 mcg PO DAILY 12/23/21 02/25/23 lysine 500 mg tablet 500 mg PO Q12H 12/23/21 02/25/23 melatonin 3 mg capsule 6 mg PO .Bedtime as needed PRN 12/23/21 02/25/23 montelukast 10 mg tablet 10 mg PO .Bedtime 12/23/21 02/25/23 omeprazole 20 mg capsule,delayed 20 mg PO BID 12/23/21 02/25/23 release tizanidine 2 mg capsule 2 mg PO Q8H PRN 12/23/21 02/25/23 albuterol sulfate 90 mcg/actuation 2 inh inhalation Q4H PRN 02/22/22 02/25/23 aerosol inhaler benzoyl peroxide 10 % topical 1 applic topical DAILY 02/22/22 02/25/23 cleanser clonidine HCl 0.1 mg tablet 0.1 mg PO Q12H 02/22/22 02/25/23 fexofenadine 180 mg tablet 180 mg PO DAILY 02/22/22 02/25/23 (Allergy Relief (fexofenadine)) hydroxyzine HCl 25 mg tablet 25 mg PO Q6H PRN 02/22/22 02/25/23 ipratropium 0.5 mg-albuterol 3 mg 3 ml inhalation Q6-8H PRN 02/22/22 02/25/23 (2.5 mg base)/3 mL nebulization soln mometasone 50 mcg/actuation nasal 2 spray intranasal Q12H 02/22/22 02/25/23 spray Previous Rx's Medication Instructions Recorded clindamycin HCl 300 mg capsule 300 mg PO Q8H #21 caps 02/25/23 Allergies Allergy/AdvReac Type Severity Reaction Status Date / Time hydrocodone Allergy Mild Rash Verified 02/25/23 17:54 hydromorphone [From Dilaudid] Allergy Mild itching Verified 02/25/23 17:54 pollen extracts Allergy Mild itching Verified 02/25/23 17:54 sulfamethoxazole Allergy Mild Rash Verified 02/25/23 17:54 [From Bactrim] trimethoprim [From Bactrim] Allergy Mild Rash Verified 02/25/23 17:54 wheat Allergy Mild gluten Verified 02/25/23 17:54 intolerance quetiapine [From Seroquel] Allergy Unknown Verified 02/25/23 17:54 acetaminophen Allergy Verified 02/25/23 17:54 oxycodone Allergy Verified 02/25/23 17:54 prednisone Allergy itching Verified 02/25/23 17:54 Tetracyclines Allergy Rash Verified 02/25/23 17:54 tramadol Allergy loss of Verified 02/25/23 17:54 memory trazodone Allergy memory loss Verified 02/25/23 17:54 venlafaxine Allergy sweating Verified 02/25/23 17:54 potassium sparing diuretics Allergy Uncoded 02/23/22 00:[address] [facility] Medical History Abnormal LFTs ?R79.89 - Other specified abnormal findings of blood chemistry (ICD-10) Hiatal hernia ?K44.9 - Diaphragmatic hernia without obstruction or gangrene (ICD-10) Seasonal allergic rhinitis due to pollen ?J30.1 - Allergic rhinitis due to pollen (ICD-10) PTSD (post-traumatic stress disorder) ?F43.10 - Post-traumatic stress disorder, unspecified (ICD-10) Chronic sinusitis ?J32.9 - Chronic sinusitis, unspecified (ICD-10) DDD (degenerative disc disease), cervical ?M50.30 - Other cervical disc degeneration, unspecified cervical region (ICD-10) Adjustment disorder with depressed mood ?F43.21 - Adjustment disorder with depressed mood (ICD-10) Tachycardia, unspecified ?R00.0 - Tachycardia, unspecified (ICD-10) Reflux esophagitis ?K21.00 - Gastro-esophageal reflux disease with esophagitis, without bleeding (ICD-10) KEE (nonalcoholic steatohepatitis) ?K75.81 - Nonalcoholic steatohepatitis (KEE) (ICD-10) Mixed hyperlipidemia ?E78.2 - Mixed hyperlipidemia (ICD-10) Migraine ?G43.909 - Migraine, unspecified, not intractable, without status migrainosus (ICD-10) Major depression, recurrent ?F33.9 - Major depressive disorder, recurrent, unspecified (ICD-10) Hypothyroidism, acquired ?E03.9 - Hypothyroidism, unspecified (ICD-10) Generalized anxiety disorder ?F41.1 - Generalized anxiety disorder (ICD-10) Diaphragmatic hernia without mention of obstruction or gangrene ?K44.9 - Diaphragmatic hernia without obstruction or gangrene (ICD-10) Cystic acne ?L70.0 - Acne vulgaris (ICD-10) Chondromalacia of both patellae ?M22.41 - Chondromalacia patellae, right knee (ICD-10) ?M22.42 - Chondromalacia patellae, left knee (ICD-10) Celiac disease ?K90.0 - Celiac disease (ICD-10) Anxiety ?F41.9 - Anxiety disorder, unspecified (ICD-10) Anemia ?D64.9 - Anemia, unspecified (ICD-10) Tobacco abuse ?Z72.0 - Tobacco use (ICD-10) Palpitations ?R00.2 - Palpitations (ICD-10) Osteoarthritis of patellofemoral joints of both knees ?M17.0 - Bilateral primary osteoarthritis of knee (ICD-10) Methicillin resistant Staphylococcus aureus infection ?A49.02 - Methicillin resistant Staphylococcus aureus infection, unspecified site (ICD-10) History of methicillin resistant Staphylococcus aureus infection ?Z86.14 - Personal history of Methicillin resistant Staphylococcus aureus infection (ICD-10) Gastroesophageal reflux disease ?K21.9 - Gastro-esophageal reflux disease without esophagitis (ICD-10) Dermatitis ?L30.9 - Dermatitis, unspecified (ICD-10) Chronic low back pain ?M54.50 - Low back pain, unspecified (ICD-10) ?G89.29 - Other chronic pain (ICD-10) Asthma ?J45.909 - Unspecified asthma, uncomplicated (ICD-10) Asthma (11/27/12) ?J45.909 - Unspecified asthma, uncomplicated (ICD-10) Surgical History [place] teeth extracted ?K08.409 - Partial loss of teeth, unspecified cause, unspecified class (ICD-10) Social History Smoking Status: Current every day smoker What tobacco products do you use: cigarettes Do you use any of these nicotine containing products: None Second hand tobacco smoke exposure: No How often do you have a drink containing alcohol: monthly or less How often do you have six or more drinks on one occasion: Never AUDIT-C Alcohol total score: 1 Non-prescribed substance use: marijuana (any form) service: Yes Exam Narrative: Exam Narrative: Constitutional: Appears well-developed and well-nourished. Alert. Conversant. Non toxic. HENT: Head: Atraumatic. Nose: Nose normal. Mouth/Throat: Oral mucosa is clear and moist. no trismus. Eyes: Conjunctivae normal. EOM normal. Pupils equal, round, and reactive to light. No scleral icterus. Neck: Normal range of motion. Neck supple. No tracheal deviation present. Cardiovascular: Normal rate, regular rhythm. No gallop. No friction rub. No murmur heard. Pulmonary/Chest: Effort normal. No stridor. No respiratory distress. No wheezes. No rales. No rhonchi . Musculoskeletal: RUE: Normal range of motion. No tenderness. No deformity LUE: Normal range of motion. No tenderness. No deformity RLE: Normal range of motion. No edema. No tenderness. No deformity LLE: Normal range of motion. No edema. No tenderness. No deformity Lymph: No cervical adenopathy. Neurological: Alert and oriented to person, place, and time. Normal strength. CN II-VII intact. No sensory deficit. GCS eye subscore is 4. GCS verbal subscore is 5. GCS motor subscore is 6. Normal coordination Skin: She has multiple erythematous macular lesions, some of them with small pustules in them affecting the left side of her scalp. Largest lesion is perhaps 1-1.5 cm in diameter. There is no palpable fluctuance to say there is an abscess present. No widespread lesion or any alopecia to suggest that these are carry on so. Skin is otherwise warm and dry. No rash noted. No pallor. Normal capillary refill. Psychiatric: Normal mood. Normal affect. Const: Vital Signs, click to edit/add: Vital Signs - 24 hr 02/25/23 17:47 Temperature 97.8 F Pulse Rate [Pulse Oximeter] 79 Respiratory Rate 18 Blood Pressure [Ri ght Upper Arm] 106/70 Pulse Oximetry 98 Oxygen Delivery Me thod Room Air Course Vital Signs Vital signs: Initial Vital Signs Temperature 97.8 F 02/25/23 17:47 Temperature Source Temporal Artery Scan 02/25/23 17:47 Pulse Rate 79 02/25/23 17:47 Respiratory Rate 18 02/25/23 17:47 Blood Pressure 106/70 02/25/23 17:47 Blood Pressure Mean 82 02/25/23 17:47 Blood Pressure Position Sitting 02/25/23 17:47 Pulse Oximetry 98 02/25/23 17:47 Oxygen Delivery Method Room Air 02/25/23 17:47 Vital Signs Temperature 97.8 F 02/25/23 17:47 Pulse Rate 79 02/25/23 17:47 Respiratory Rate 18 02/25/23 17:47 Blood Pressure 106/70 02/25/23 17:47 Pulse Oximetry 98 02/25/23 17:47 Oxygen Delivery Method Room Air 02/25/23 17:47 Temperature 97.8 F 02/25/23 17:47 Pulse Rate 79 02/25/23 17:47 Respiratory Rate 18 02/25/23 17:47 Blood Pressure 106/70 02/25/23 17:47 Pulse Oximetry 98 02/25/23 17:47 Oxygen Delivery Method Room Air 02/25/23 17:47 Medications Administered Medications: Discontinued Medications Generic Name Dose Route Start Last Admin Trade Name Danielq PRN Reason Stop Dose Admin Clindamycin HCl 300 mg 02/25/23 18:20 02/25/23 18:35 Clindamycin 150 Mg Capsule PO 02/25/23 18:21 300 mg ONCE ONE Administration Medical Decision Making MDM Narrative Medical decision making narrative: This patient presents for evaluation of skin redness with multiple discrete lesions on the left side of her scalp. She has a history of these lesions dating back a couple of years and has been told that they are MRSA infections on her scalp.. The history, physical exam could be consistent with cellulitis. There do not appear at this time to be any complication of cellulitis including abscess, necrotizing fascitis, lymphangitis, lymphadenitis, osteomyelitis, sepsis, or shock. Differential would also include non infectious etiology such as chronic seborrheic dermatitis or fungal infection such as tinea capitis or carry on. The patient is not immunosuppressed or diabetic. Supportive outpatient management is indicated with antibiotics. Would her back on clindamycin which has been successful in the past. She will follow-up with her counter server as soon as possible for recheck and further workup. The patient is instructed to follow-up with primary care physician to ensure no progression and rapid resolution and given precautions to return if high fever, spread greater than 2cm outside of the current area, worsening pain, or any other worsening. Questions answered and return precautions reviewed. Discharge Plan Discharge Clinical Impression: Cellulitis Patient Disposition: Home, Self-Care Condition: Stable Instructions: Cellulitis (ED) Additional Instructions: Please follow-up with your regular doctor or your counter server for re-evaluation as soon as possible. Ask your counter server to consider workup for other conditions such as seborrheic dermatitis tinea capitis, etc. please start the antibiotic tonight and take it 3 times daily for 1 week. If you have worsening infection or other problems, please come back to the ER right away.. . Activity Level: No Restrictions Discharge Diet: Regular Prescriptions: New clindamycin HCl 300 mg capsule 300 mg PO Q8H Qty: 21 0RF No Action cholecalciferol (vitamin D3) 50 mcg (2,000 unit) tablet 2,000 unit PO DAILY fluticasone propion-salmeterol 230-21 mcg/actuation HFA aerosol inhaler 1 inh inhalation BID fluoxetine 20 mg capsule 40 mg PO DAILY lysine 500 mg tablet 500 mg PO Q12H epinephrine 0.3 mg/0.3 mL auto-injector 0.3 mg IM .As Needed PRN montelukast 10 mg tablet 10 mg PO .Bedtime omeprazole 20 mg capsule,delayed release(DR/EC) 20 mg PO BID divalproex 125 mg tablet,delayed release (DR/EC) 500 mg PO QHS levothyroxine 125 mcg tablet 125 mcg PO DAILY fluconazole 150 mg tablet 150 mg PO ONCE tizanidine 2 mg capsule 2 mg PO Q8H PRN gabapentin 300 mg capsule 300 mg PO Q8H buspirone 5 mg tablet 30 mg PO BID Lactobacillus acidophilus Capsule 10 mg PO QDAY melatonin 3 mg capsule 6 mg PO .Bedtime as needed PRN albuterol sulfate 90 mcg/actuation HFA aerosol inhaler 2 inh inhalation Q4H PRN ipratropium-albuterol 0.5 mg-3 mg(2.5 mg base)/3 mL solution for nebulization 3 ml inhalation Q6-8H PRN clonidine HCl 0.1 mg tablet 0.1 mg PO Q12H fexofenadine [Allergy Relief (fexofenadine)] 180 mg tablet 180 mg PO DAILY benzoyl peroxide 10 % cleanser 1 applic topical DAILY mometasone 50 mcg/actuation spray,non-aerosol 2 spray intranasal Q12H Rx Instructions: administer into each nostril hydroxyzine HCl 25 mg tablet 25 mg PO Q6H PRN Follow Up/Referrals: Leyla Sands DO [Primary Care Provider] - Stand Alone Forms: [employer] Info Instructions
[2023-02-25] MEDS: CLINDAMYCIN 150 MG CAPSULE 300 MG PO (18:35)
== END 2023-02-25 18:37 | disposition home or self-care (01) ==
LOC: ED 18:29
PROVIDERS: Emergency Provider Emergency Medicine; PCP Family Medicine
DX: L03.811 Cellulitis of head [any part, except face] (principal)
CPT/HCPCS: 95992; 99283; A9270

== ENCOUNTER 2023-03-19 22:41 | Emergency (ER) | payer OTHER, SELFPAY ==
[2023-03-19 22:47] VITALS: BP 129/67; PULSE 79; RESP 18; TEMP 36.1; O2SAT 97; BMI 28.3
--- NOTE | 2023-03-19 23:52 | CRLHL7_ITS ---
For Patients: As a result of the Cures Act, medical imaging exams and procedure reports are released immediately into your electronic medical record. You may view this report before your referring provider. If you have questions, please contact your health care provider. INDICATION: Cough TECHNIQUE: Chest radiograph 2 views COMPARISON: 02/22/2022 FINDINGS: The sensitivity and specificity of the exam are moderately limited by the patient`s body habitus. Mediastinum: The mediastinum is normal in appearance. The heart silhouette is normal in size and morphology. Lung: Both lungs are unremarkable in appearance with small lung volumes. No sign of pleural effusion seen. No pneumothorax is identified. Bone and Soft tissue: Unremarkable for age. IMPRESSION: 1. No acute cardiopulmonary disease is seen. Dictated by: Hilario Peralta MD @ 03/20/2023 00:21:27 (Electronically Signed)
--- NOTE | 2023-03-19 23:54 | ED_ITS ---
HPI - General Adult General Chief complaint: Cough Stated complaint: pneumonia,bronchitis, mrsu History of Present Illness HPI narrative: This 52-year-old female comes in stating that she thinks she had she might have pneumonia. She has been coughing for more than a week and states that it is productive. She reports subjective fevers. She has a history of smoking. She also states that she has lesions in her scalp and has been seeing a frog shaker regarding these over the past couple years. She was told that it was MRSA. She was seen here about a month ago in this emergency department and did receive a prescription for clindamycin to treat her scalp skin issues. She arrives here with normal vital signs. She does report a productive cough but does not indicate any shortness of breath. Related Data Home Medications Medication Instructions Recorded Confirmed Lactobacillus acidophilus 10 mg PO QDAY 12/23/21 03/19/23 buspirone 5 mg tablet 30 mg PO BID 12/23/21 03/19/23 cholecalciferol (vitamin D3) 50 2,000 unit PO DAILY 12/23/21 03/19/23 mcg (2,000 unit) tablet divalproex 125 mg tablet,delayed 500 mg PO QHS 12/23/21 03/19/23 release epinephrine 0.3 mg/0.3 mL 0.3 mg IM .As Needed PRN 12/23/21 03/19/23 injection, auto-injector fluoxetine 20 mg capsule 40 mg PO DAILY 12/23/21 03/19/23 fluticasone propionate 230 1 inh inhalation BID 12/23/21 03/19/23 mcg-salmeterol 21 mcg/actuation HFA inhaler gabapentin 300 mg capsule 300 mg PO Q8H 12/23/21 03/19/23 levothyroxine 125 mcg tablet 125 mcg PO DAILY 12/23/21 03/19/23 lysine 500 mg tablet 500 mg PO Q12H 12/23/21 03/19/23 melatonin 3 mg capsule 6 mg PO .Bedtime as needed PRN 12/23/21 03/19/23 montelukast 10 mg tablet 10 mg PO .Bedtime 12/23/21 03/19/23 omeprazole 20 mg capsule,delayed 20 mg PO BID 12/23/21 03/19/23 release tizanidine 2 mg capsule 2 mg PO Q8H PRN 12/23/21 03/19/23 albuterol sulfate 90 mcg/actuation 2 inh inhalation Q4H PRN 02/22/22 03/19/23 aerosol inhaler benzoyl peroxide 10 % topical 1 applic topical DAILY 02/22/22 03/19/23 cleanser clonidine HCl 0.1 mg tablet 0.1 mg PO Q12H 02/22/22 03/19/23 fexofenadine 180 mg tablet 180 mg PO DAILY 02/22/22 03/19/23 (Allergy Relief (fexofenadine)) hydroxyzine HCl 25 mg tablet 25 mg PO Q6H PRN 02/22/22 03/19/23 ipratropium 0.5 mg-albuterol 3 mg 3 ml inhalation Q6-8H PRN 02/22/22 03/19/23 (2.5 mg base)/3 mL nebulization soln mometasone 50 mcg/actuation nasal 2 spray intranasal Q12H 02/22/22 03/19/23 spray buspirone 30 mg tablet 30 mg PO BID 03/19/23 03/19/23 ketoconazole 2 % shampoo topical DAILY 03/19/23 ondansetron HCl 8 mg tablet mg PO 03/19/23 tizanidine 2 mg tablet 2 mg PO 3XD 03/19/23 03/19/23 Allergies Allergy/AdvReac Type Severity Reaction Status Date / Time hydrocodone Allergy Mild Rash Verified 03/19/23 22:55 hydromorphone [From Dilaudid] Allergy Mild itching Verified 03/19/23 22:55 pollen extracts Allergy Mild itching Verified 03/19/23 22:55 sulfamethoxazole Allergy Mild Rash Verified 03/19/23 22:55 [From Bactrim] trimethoprim [From Bactrim] Allergy Mild Rash Verified 03/19/23 22:55 wheat Allergy Mild gluten Verified 03/19/23 22:55 intolerance quetiapine [From Seroquel] Allergy Unknown Verified 03/19/23 22:55 oxycodone Allergy Verified 03/19/23 22:55 prednisone Allergy itching Verified 03/19/23 22:55 Tetracyclines Allergy Rash Verified 03/19/23 22:55 tramadol Allergy loss of Verified 03/19/23 22:55 memory trazodone Allergy memory loss Verified 03/19/23 22:55 venlafaxine Allergy sweating Verified 03/19/23 22:55 potassium sparing diuretics Allergy Uncoded 02/23/22 00:18 Review of Systems Status of ROS: Reports: 10 or more systems reviewed and unremarkable except as noted in History and below Narrative: Constitutional: No fevers, no weight gain or loss. Eyes: No discharge. No vision changes. HENT: No congestion, no sore throat, no ear pain. Cardiovascular: No chest pain, no palpitations. Respiratory: No shortness of breath, no wheezes. Productive cough. Gastrointestinal: No abdominal pain, no vomiting, no diarrhea. Genitourinary: No dysuria, no hematuria. Musculoskeletal: Normal range of motion. Skin: No rashes, no pruritis. Chronic scalp lesions. Neurological: No dizziness, weakness, sensory change, speech change. Endo/Heme/Allergies: No bruising or bleeding. No polydipsia. Pysch: no suicidality, no anxiety, no insomnia. All other systems reviewed and are negative. [facility] Medical History Abnormal LFTs ?R79.89 - Other specified abnormal findings of blood chemistry (ICD-10) Hiatal hernia ?K44.9 - Diaphragmatic hernia without obstruction or gangrene (ICD-10) Seasonal allergic rhinitis due to pollen ?J30.1 - Allergic rhinitis due to pollen (ICD-10) PTSD (post-traumatic stress disorder) ?F43.10 - Post-traumatic stress disorder, unspecified (ICD-10) Chronic sinusitis ?J32.9 - Chronic sinusitis, unspecified (ICD-10) DDD (degenerative disc disease), cervical ?M50.30 - Other cervical disc degeneration, unspecified cervical region (ICD- 10) Adjustment disorder with depressed mood ?F43.21 - Adjustment disorder with depressed mood (ICD-10) Tachycardia, unspecified ?R00.0 - Tachycardia, unspecified (ICD-10) Reflux esophagitis ?K21.00 - Gastro-esophageal reflux disease with esophagitis, without bleeding (ICD-10) KEE (nonalcoholic steatohepatitis) ?K75.81 - Nonalcoholic steatohepatitis (KEE) (ICD-10) Mixed hyperlipidemia ?E78.2 - Mixed hyperlipidemia (ICD-10) Migraine ?G43.909 - Migraine, unspecified, not intractable, without status migrainosus (ICD-10) Major depression, recurrent ?F33.9 - Major depressive disorder, recurrent, unspecified (ICD-10) Hypothyroidism, acquired ?E03.9 - Hypothyroidism, unspecified (ICD-10) Generalized anxiety disorder ?F41.1 - Generalized anxiety disorder (ICD-10) Diaphragmatic hernia without mention of obstruction or gangrene ?K44.9 - Diaphragmatic hernia without obstruction or gangrene (ICD-10) Cystic acne ?L70.0 - Acne vulgaris (ICD-10) Chondromalacia of both patellae ?M22.41 - Chondromalacia patellae, right knee (ICD-10) ?M22.42 - Chondromalacia patellae, left knee (ICD-10) Celiac disease ?K90.0 - Celiac disease (ICD-10) Anxiety ?F41.9 - Anxiety disorder, unspecified (ICD-10) Anemia ?D64.9 - Anemia, unspecified (ICD-10) Tobacco abuse ?Z72.0 - Tobacco use (ICD-10) Palpitations ?R00.2 - Palpitations (ICD-10) Osteoarthritis of patellofemoral joints of both knees ?M17.0 - Bilateral primary osteoarthritis of knee (ICD-10) Methicillin resistant Staphylococcus aureus infection ?A49.02 - Methicillin resistant Staphylococcus aureus infection, unspecified site (ICD-10) History of methicillin resistant Staphylococcus aureus infection ?Z86.14 - Personal history of Methicillin resistant Staphylococcus aureus infection (ICD-10) Gastroesophageal reflux disease ?K21.9 - Gastro-esophageal reflux disease without esophagitis (ICD-10) Dermatitis ?L30.9 - Dermatitis, unspecified (ICD-10) Chronic low back pain ?M54.50 - Low back pain, unspecified (ICD-10) ?G89.29 - Other chronic pain (ICD-10) Asthma ?J45.909 - Unspecified asthma, uncomplicated (ICD-10) Asthma (11/27/12) ?J45.909 - Unspecified asthma, uncomplicated (ICD-10) Surgical History [place] teeth extracted ?K08.409 - Partial loss of teeth, unspecified cause, unspecified class (ICD- 10) Social History Smoking Status: Current every day smoker What tobacco products do you use: cigarettes Smoking packs per day: 0.5 Smoking cigarettes per day: 10.0 Years smoked: 30 Smoking pack-years: 15.00 Do you use any of these nicotine containing products: E-Cigarettes and Vaping Products Second hand tobacco smoke exposure: No How often do you have a drink containing alcohol: monthly or less How often do you have six or more drinks on one occasion: Never AUDIT-C Alcohol total score: 1 Non-prescribed substance use: marijuana (any form) service: Yes Exam Narrative: Exam Narrative: Constitutional: Well-developed, well-nourished, no acute distress. HEENT: Normocephalic, atraumatic. Sores on her scalp that do not appear infected and there is no drainage or surrounding erythema. Neck: Normal range of motion. Nontender. Supple. Heart: Regular. No murmurs. Normal rate. Intact distal pulses. Lungs: Clear to auscultation. No chest discomfort. No wheezes, rhonchi, or rales. Abdomen: Normal bowel sounds. Nontender. No rebound tenderness. Genitalia: Deferred. Back: No midline tenderness. Normal range of motion. Extremities: Normal range of motion. No injury. Skin: Intact. No rash. Warm. No erythema or pallor. Neurologic: No altered sensation. No weakness. Alert and oriented. Psychiatric: No suicidality. No anxiety or depression. No insomnia. Nursing notes and vitals signs are reviewed. Const: Vital Signs, click to edit/add: Vital Signs - 24 hr 03/19/23 22:47 Temperature 96.9 F L Pulse Rate [Pulse Oximeter] 79 Respiratory Rate 18 Blood Pressure [Le ft Upper Arm] 129/67 Pulse Oximetry 97 Oxygen Delivery Me thod Room Air Course Vital Signs Vital signs: Initial Vital Signs Temperature 96.9 F L 03/19/23 22:47 Temperature Source Temporal Artery Scan 03/19/23 22:47 Pulse Rate 79 03/19/23 22:47 Respiratory Rate 18 03/19/23 22:47 Blood Pressure 129/67 03/19/23 22:47 Blood Pressure Mean 87 03/19/23 22:47 Blood Pressure Position Sitting 03/19/23 22:47 Pulse Oximetry 97 03/19/23 22:47 Oxygen Delivery Method Room Air 03/19/23 22:47 Vital Signs Temperature 96.9 F L 03/19/23 22:47 Pulse Rate 79 03/19/23 22:47 Respiratory Rate 18 03/19/23 22:47 Blood Pressure 129/67 03/19/23 22:47 Pulse Oximetry 97 03/19/23 22:47 Oxygen Delivery Method Room Air 03/19/23 22:47 Temperature 96.9 F L 03/19/23 22:47 Pulse Rate 79 03/19/23 22:47 Respiratory Rate 18 03/19/23 22:47 Blood Pressure 129/67 03/19/23 22:47 Pulse Oximetry 97 03/19/23 22:47 Oxygen Delivery Method Room Air 03/19/23 22:47 Medical Decision Making MDM Narrative Medical decision making narrative: This patient comes in stating that she has a productive cough and thinks that she has pneumonia. Labs are acquired an x-ray of the chest is ordered with results pending at the end of my shift. Oncoming physician overnight will attend to results and proceed accordingly. Discharge Plan Discharge Prescriptions: No Action cholecalciferol (vitamin D3) 50 mcg (2,000 unit) tablet 2,000 unit PO DAILY fluticasone propion-salmeterol 230-21 mcg/actuation HFA aerosol inhaler 1 inh inhalation BID fluoxetine 20 mg capsule 40 mg PO DAILY lysine 500 mg tablet 500 mg PO Q12H epinephrine 0.3 mg/0.3 mL auto-injector 0.3 mg IM .As Needed PRN montelukast 10 mg tablet 10 mg PO .Bedtime omeprazole 20 mg capsule,delayed release(DR/EC) 20 mg PO BID divalproex 125 mg tablet,delayed release (DR/EC) 500 mg PO QHS levothyroxine 125 mcg tablet 125 mcg PO DAILY tizanidine 2 mg capsule 2 mg PO Q8H PRN gabapentin 300 mg capsule 300 mg PO Q8H buspirone 5 mg tablet 30 mg PO BID Lactobacillus acidophilus Capsule 10 mg PO QDAY melatonin 3 mg capsule 6 mg PO .Bedtime as needed PRN albuterol sulfate 90 mcg/actuation HFA aerosol inhaler 2 inh inhalation Q4H PRN ipratropium-albuterol 0.5 mg-3 mg(2.5 mg base)/3 mL solution for nebulization 3 ml inhalation Q6-8H PRN clonidine HCl 0.1 mg tablet 0.1 mg PO Q12H fexofenadine [Allergy Relief (fexofenadine)] 180 mg tablet 180 mg PO DAILY benzoyl peroxide 10 % cleanser 1 applic topical DAILY mometasone 50 mcg/actuation spray,non-aerosol 2 spray intranasal Q12H Rx Instructions: administer into each nostril hydroxyzine HCl 25 mg tablet 25 mg PO Q6H PRN ketoconazole 2 % shampoo topical DAILY tizanidine 2 mg tablet 2 mg PO 3XD ondansetron HCl 8 mg tablet PO buspirone 30 mg tablet 30 mg PO BID Follow Up/Referrals: Leyla Sands DO [Primary Care Provider] -
[2023-03-20 00:07] LABS: Basophils Absolute Auto 0.05 K/uL (0.00-0.30); Basophils Percent Auto 0.5 % (0.0-3.0); Eosinophils Absolute Auto 0.38 K/uL (0.00-0.50); Hematocrit 38.5 % (33.0-51.0); Hemoglobin* 12.3 gm/dL (12.0-16.0); Immature Granulocytes Abs Auto 0.05 K/uL (0.00-0.30); Immature Granulocytes Pct Auto 0.5 %; Lymphocytes Absolute Auto 3.81 K/uL (0.90-2.90); Lymphocytes Percent Auto 39.6 % (20-44); Mean Corpuscular HGB Conc 32 gm/dL (32-36); Mean Corpuscular Hemoglobin 27 pg (26-34); Mean Corpuscular Volume 84 fL (80-100); Monocytes Percent Auto 7.3 % (0.0-11.0); Neutrophils Absolute Auto 4.62 K/uL (1.7-7.0); Neutrophils Percent Auto 48.1 % (42.0-72.0); Platelet Count* 416 K/uL (140-440); RDW Coefficient of Variation % 16.3 % (11.5-15.5); Red Blood Count 4.56 m/uL (4.00-5.20); White Blood Count* 9.61 K/uL (4.50-11.00)
[2023-03-20 00:09] LABS: Slide Review Reflex No
--- OUTSIDE RECORDS SUMMARY | 2023-03-20 00:10 | XMS_ITS | Patient Health Record ---
Author Name Unknown Organization [facility] 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 - Primary [address] [place] [address] 12/22/2022 Jared Pratt Post-traumatic stress disorder, chronic F43.12 ASSESSMENTS Encounter Date Diagnosis Assessment Notes Treatment Notes Treatment Clinical Notes 12/22/2022 Post-traumatic stress disorder, chronic (ICD-10 - F43.12) Records reviewed with pt. Improved with cannabis. Recertified for medical cannabis on [facility] cannabis website according to [place] law PLAN OF TREATMENT Next Appt Details Provider Name:Jared Pratt , 12/21/2023 11:30:00 AM, [address], [place], [address], Insurance Providers Payer Name Payer Address Payer Phone Subscriber Number Group Number Insured Name Patient Relationship to Insured Coverage Start Date Coverage End Date [employer] [address] [address] [place] [address] [id number] Korina Soto Self - patient is the insured MEDICAL (GENERAL) HISTORY Medical History History ICD Code anxiety PTSD sleep apnea Hypothyroidism depression insomnia allergies parkinson's disease Surgical History Surgery Date(Month/Year) colonoscopy 11/2022
[2023-03-20 00:25] LABS: Chloride* 109 mmol/L (96-114); Potassium* 3.7 mmol/L (3.6-5.1); Sodium* 141 mmol/L (135-149)
[2023-03-20 00:28] LABS: Anion Gap 5 mEq/L (7-15); Carbon Dioxide* 27 mmol/L (20-32); Creatinine* 0.5 mg/dL (0.5-1.5); Est. Creatinine Clearance* 101.58; Estimated Glomerular Filt Rate 114 ml/min
[2023-03-20 00:29] LABS: Blood Urea Nitrogen* 8 mg/dL (7-30); Calcium* 8.7 mg/dL (8.4-10.6); Glucose* 94 mg/dL (60-115)
[2023-03-20] MEDS: methylPREDNISolone 4 MG TABLET 20 MG PO (01:10)
--- NOTE | 2023-03-20 01:17 | PC.NURSE ---
patient DC ambulatory in no resp. distress. no questions to DC instructions
== END 2023-03-20 01:15 | disposition home or self-care (01) ==
PROVIDERS: Emergency Medicine Emergency Medical Services; Emergency Provider Family Medicine; PCP Family Medicine
DX: R05.9 Cough, unspecified (principal)
CPT/HCPCS: 36415; 71046; 80048; 85025; 99284; J7509

== ENCOUNTER 2023-07-06 19:05 | Emergency (ER) | payer OTHER, SELFPAY ==
[2023-07-06 19:09] VITALS: BP 119/80; PULSE 74; RESP 20; TEMP 37.1; O2SAT 95; BMI 30.2
--- NOTE | 2023-07-06 20:36 | ED.GENADULT ---
HPI - General Adult General Date Seen: 07/06/23 Chief complaint: Headache/Migraine Stated complaint: infection in scalp Time Seen by Provider: 07/06/23 20:35 History of Present Illness HPI narrative: This is a 52-year-old female presenting to the ER today with concern for infection on her scalp. It has been draining yellow discharge with lesions on her scalp. She is already on a topical antibacterial and antifungal shampoo but it is not improving. She has a history of MRSA. She also has a cough with some production of phlegm which has been going on for awhile. She also endorses a had a migraine headache which began yesterday. She has a history of celiac disease, esophagitis, anxiety, depression, PTSD, hyperlipidemia, migraine headaches, as well as degenerative disc disease. I saw her in the ER in February 2023 for inflamed scalp lesions. She was concerned about a bacterial cellulitis. We put her on clindamycin at that time. Patient says that her scalp lesions have been flaring off and on for several months. She has been following with her primary care provider, at [facility], and saw him recently and he thought her scalp was not inflamed. She also follows with a revenue audit clerk to his told her that she has cystic acne. Sometimes this gets super infected by staph and strep. She has a history of MRSA. She feels like her scalp lesions have been flaring for the past week or 2. They been increasingly painful and itchy. They have also been draining some yellow marie and bloody fluid. It been more hot to the touch. She has not had any fevers. No other rashes. She has also had a cough for the past week or so. Some production of sputum. No shortness of breath. No sore throat. No known sick exposures. No exposure to COVID or influenza. No vomiting or diarrhea She also has a mild headache. No other concerning symptoms with the headache such as stiff neck, confusion, blurry vision, or focal neurologic deficits. Related Data Home Medications Medication Instructions Recorded Confirmed Lactobacillus acidophilus 10 mg PO QDAY 12/23/21 03/19/23 buspirone 5 mg tablet 30 mg PO BID 12/23/21 03/19/23 cholecalciferol (vitamin D3) 50 2,000 unit PO DAILY 12/23/21 03/19/23 mcg (2,000 unit) tablet divalproex 125 mg tablet,delayed 500 mg PO QHS 12/23/21 03/19/23 release epinephrine 0.3 mg/0.3 mL 0.3 mg IM .As Needed PRN 12/23/21 03/19/23 injection, auto-injector fluoxetine 20 mg capsule 40 mg PO DAILY 12/23/21 07/06/23 fluticasone propionate 230 1 inh inhalation BID 12/23/21 03/19/23 mcg-salmeterol 21 mcg/actuation HFA inhaler gabapentin 300 mg capsule 300 mg PO Q8H 12/23/21 07/06/23 levothyroxine 125 mcg tablet 125 mcg PO DAILY 12/23/21 07/06/23 lysine 500 mg tablet 500 mg PO Q12H 12/23/21 07/06/23 melatonin 3 mg capsule 6 mg PO .Bedtime as needed PRN 12/23/21 03/19/23 montelukast 10 mg tablet 10 mg PO .Bedtime 12/23/21 03/19/23 omeprazole 20 mg capsule,delayed 20 mg PO BID 12/23/21 07/06/23 release tizanidine 2 mg capsule 2 mg PO Q8H PRN 12/23/21 03/19/23 albuterol sulfate 90 mcg/actuation 2 inh inhalation Q4H PRN 02/22/22 07/06/23 aerosol inhaler benzoyl peroxide 10 % topical 1 applic topical DAILY 02/22/22 03/19/23 cleanser clonidine HCl 0.1 mg tablet 0.1 mg PO Q12H 02/22/22 03/19/23 fexofenadine 180 mg tablet 180 mg PO DAILY 02/22/22 07/06/23 (Allergy Relief (fexofenadine)) hydroxyzine HCl 25 mg tablet 25 mg PO Q6H PRN 02/22/22 03/19/23 ipratropium 0.5 mg-albuterol 3 mg 3 ml inhalation Q6-8H PRN 02/22/22 03/19/23 (2.5 mg base)/3 mL nebulization soln mometasone 50 mcg/actuation nasal 2 spray intranasal Q12H 02/22/22 03/19/23 spray buspirone 30 mg tablet 30 mg PO BID 03/19/23 07/06/23 ketoconazole 2 % shampoo topical DAILY 03/19/23 ondansetron HCl 8 mg tablet mg PO 03/19/23 tizanidine 2 mg tablet 2 mg PO 3XD 03/19/23 07/06/23 clindamycin phosphate 1 % topical topical 07/06/23 solution clobetasol 0.05 % scalp solution 1 applic topical BID 07/06/23 07/06/23 fluoxetine 40 mg capsule mg PO 07/06/23 fluticasone 100 mcg-salmeterol 50 inhalation 07/06/23 mcg/dose blistr powdr for inhalation (Wixela Inhub) primidone 50 mg tablet 50 mg PO QPM 07/06/23 07/06/23 sulfamethoxazole 800 1 tab PO BID 07/06/23 07/06/23 mg-trimethoprim 160 mg tablet Previous Rx's Medication Instructions Recorded methylprednisolone 4 mg tablet 4 - 12 mg (1 - 3 x 4 mg) PO DAILY 03/20/23 #11 tabs Allergies Allergy/AdvReac Type Severity Reaction Status Date / Time hydrocodone Allergy Mild Rash Verified 07/06/23 19:15 hydromorphone [From Dilaudid] Allergy Mild itching Verified 07/06/23 19:15 pollen extracts Allergy Mild itching Verified 07/06/23 19:15 sulfamethoxazole Allergy Mild Rash Verified 07/06/23 19:15 [From Bactrim] trimethoprim [From Bactrim] Allergy Mild Rash Verified 07/06/23 19:15 wheat Allergy Mild gluten Verified 07/06/23 19:15 intolerance quetiapine [From Seroquel] Allergy Unknown Verified 07/06/23 19:15 oxycodone Allergy Verified 07/06/23 19:15 prednisone Allergy itching Verified 07/06/23 19:15 Tetracyclines Allergy Rash Verified 07/06/23 19:15 tramadol Allergy loss of Verified 07/06/23 19:15 memory trazodone Allergy memory loss Verified 07/06/23 19:15 venlafaxine Allergy sweating Verified 07/06/23 19:15 potassium sparing diuretics Allergy Uncoded 02/23/22 00:18 [facility] Medical History Abnormal LFTs ?R79.89 - Other specified abnormal findings of blood chemistry (ICD-10) Hiatal hernia ?K44.9 - Diaphragmatic hernia without obstruction or gangrene (ICD-10) Seasonal allergic rhinitis due to pollen ?J30.1 - Allergic rhinitis due to pollen (ICD-10) PTSD (post-traumatic stress disorder) ?F43.10 - Post-traumatic stress disorder, unspecified (ICD-10) Chronic sinusitis ?J32.9 - Chronic sinusitis, unspecified (ICD-10) DDD (degenerative disc disease), cervical ?M50.30 - Other cervical disc degeneration, unspecified cervical region (ICD-10) Adjustment disorder with depressed mood ?F43.21 - Adjustment disorder with depressed mood (ICD-10) Tachycardia, unspecified ?R00.0 - Tachycardia, unspecified (ICD-10) Reflux esophagitis ?K21.00 - Gastro-esophageal reflux disease with esophagitis, without bleeding (ICD-10) KEE (nonalcoholic steatohepatitis) ?K75.81 - Nonalcoholic steatohepatitis (KEE) (ICD-10) Mixed hyperlipidemia ?E78.2 - Mixed hyperlipidemia (ICD-10) Migraine ?G43.909 - Migraine, unspecified, not intractable, without status migrainosus (ICD-10) Major depression, recurrent ?F33.9 - Major depressive disorder, recurrent, unspecified (ICD-10) Hypothyroidism, acquired ?E03.9 - Hypothyroidism, unspecified (ICD-10) Generalized anxiety disorder ?F41.1 - Generalized anxiety disorder (ICD-10) Diaphragmatic hernia without mention of obstruction or gangrene ?K44.9 - Diaphragmatic hernia without obstruction or gangrene (ICD-10) Cystic acne ?L70.0 - Acne vulgaris (ICD-10) Chondromalacia of both patellae ?M22.41 - Chondromalacia patellae, right knee (ICD-10) ?M22.42 - Chondromalacia patellae, left knee (ICD-10) Celiac disease ?K90.0 - Celiac disease (ICD-10) Anxiety ?F41.9 - Anxiety disorder, unspecified (ICD-10) Anemia ?D64.9 - Anemia, unspecified (ICD-10) Tobacco abuse ?Z72.0 - Tobacco use (ICD-10) Palpitations ?R00.2 - Palpitations (ICD-10) Osteoarthritis of patellofemoral joints of both knees ?M17.0 - Bilateral primary osteoarthritis of knee (ICD-10) Methicillin resistant Staphylococcus aureus infection ?A49.02 - Methicillin resistant Staphylococcus aureus infection, unspecified site (ICD-10) History of methicillin resistant Staphylococcus aureus infection ?Z86.14 - Personal history of Methicillin resistant Staphylococcus aureus infection (ICD-10) Gastroesophageal reflux disease ?K21.9 - Gastro-esophageal reflux disease without esophagitis (ICD-10) Dermatitis ?L30.9 - Dermatitis, unspecified (ICD-10) Chronic low back pain ?M54.50 - Low back pain, unspecified (ICD-10) ?G89.29 - Other chronic pain (ICD-10) Asthma ?J45.909 - Unspecified asthma, uncomplicated (ICD-10) Asthma (11/27/12) ?J45.909 - Unspecified asthma, uncomplicated (ICD-10) Surgical History [place] teeth extracted ?K08.409 - Partial loss of teeth, unspecified cause, unspecified class (ICD-10) Social History Smoking Status: Current every day smoker What tobacco products do you use: cigarettes Smoking packs per day: 0.5 Smoking cigarettes per day: 10.0 Years smoked: 30 Smoking pack-years: 15.00 Do you use any of these nicotine containing products: E-Cigarettes and Vaping Products Second hand tobacco smoke exposure: No How often do you have a drink containing alcohol: monthly or less How often do you have six or more drinks on one occasion: Never AUDIT-C Alcohol total score: 1 Non-prescribed substance use: marijuana (any form) service: Yes Exam Narrative: Exam Narrative: Constitutional: Appears well-developed and well-nourished. Alert. Conversant. She recalls meeting the once in the past here in the ER. Non toxic. HENT: Head: Atraumatic. Right and left TMs are normal. Canals, mastoids, pinnae are normal bilaterally. Nose: Nose normal. No purulent rhinorrhea. Mouth/Throat: Oral mucosa is clear and moist. no trismus. No pharyngeal erythema. Tonsils and uvula normal. Phonation normal. No trismus. Eyes: Conjunctivae normal. EOM normal. Pupils equal, round, and reactive to light. No scleral icterus. Neck: Normal range of motion. Neck supple. No tracheal deviation present. Cardiovascular: Normal rate, regular rhythm. No gallop. No friction rub. No murmur heard. Pulmonary/Chest: Effort normal. No stridor. No respiratory distress. No wheezes. No rales. No rhonchi . Occasional cough. Musculoskeletal: RUE: Normal range of motion. No tenderness. No deformity LUE: Normal range of motion. No tenderness. No deformity RLE: Normal range of motion. No edema. No tenderness. No deformity LLE: Normal range of motion. No edema. No tenderness. No deformity Lymph: No cervical adenopathy. Neurological: Alert and oriented to person, place, and time. Normal strength. CN II-VII intact. No sensory deficit. GCS eye subscore is 4. GCS verbal subscore is 5. GCS motor subscore is 6. Normal coordination Skin: She has multiple erythematous macular lesions, with scabbing and crusting on the some of them with small pustules in them affecting the left side of her scalp. Most are a few mm in diameter. Largest lesion is perhaps 1 cm in diameter. They all have a small rim of erythema around them. There is no palpable fluctuance to say there is an abscess present. No widespread lesion or any alopecia to suggest that these are carry on so. Skin is otherwise warm and dry. No rash noted. No pallor. Normal capillary refill. Psychiatric: Normal mood. Normal affect. Const: Vital Signs, click to edit/add: Vital Signs - 24 hr 07/06/23 19:09 Temperature 98.7 F Pulse Rate [Right Pulse Oximeter] 74 Respiratory Rate 20 Blood Pressure [Ri ght Upper Arm] 119/80 Pulse Oximetry 95 Oxygen Delivery Me thod Room Air Course Vital Signs Vital signs: Initial Vital Signs Temperature 98.7 F 07/06/23 19:09 Temperature Source Temporal Artery Scan 07/06/23 19:09 Pulse Rate 74 07/06/23 19:09 Pulse Rhythm Regular 07/06/23 19:09 Respiratory Rate 20 07/06/23 19:09 Blood Pressure 119/80 07/06/23 19:09 Blood Pressure Mean 93 07/06/23 19:09 Blood Pressure Position Sitting 07/06/23 19:09 Pulse Oximetry 95 07/06/23 19:09 Oxygen Delivery Method Room Air 07/06/23 19:09 Vital Signs Temperature 98.7 F 07/06/23 19:09 Pulse Rate 74 07/06/23 19:09 Respiratory Rate 20 07/06/23 19:09 Blood Pressure 119/80 07/06/23 19:09 Pulse Oximetry 95 07/06/23 19:09 Oxygen Delivery Method Room Air 07/06/23 19:09 Temperature 98.7 F 07/06/23 19:09 Pulse Rate 74 07/06/23 19:09 Respiratory Rate 20 07/06/23 19:09 Blood Pressure 119/80 07/06/23 19:09 Pulse Oximetry 95 07/06/23 19:09 Oxygen Delivery Method Room Air 07/06/23 19:09 Medical Decision Making MDM Narrative Medical decision making narrative: This is a 52-year-old female who presents to the ER today with concerned that her chronic scalp lesions have become infected recently. She does have chronic sores on her scalp and has been diagnosed with cystic acne by her revenue audit clerk. She feels like the been more inflamed draining more purulent fluid for the past week or 2. On my exam she does have signs of inflammation around the but no active drainage. I do not see any other underlying palpable fluctuance to suggest abscess. There is really no large focal boggy lesion to suggest that this is a Kerion. At this point no evidence for intracranial extension. She is afebrile. Pulse and blood pressure are stable. No evidence for any sepsis physiology. She is requesting that we start her back on antibiotics to treat for bacterial infection. She has a history of MRSA. Will cover her with cephalexin to cover typical strains of strep and staph and Bactrim to cover for community-acquired MRSA. Instymeds prescriptions for Bactrim ds 1 tablet p.o. b.i.d. for 7 days and for cephalexin 500 mg t.i.d. for 7 days She also endorses a cough ongoing for the past week or so. This is consistent with an upper respiratory tract infection. Will hold off on viral testing since symptoms have been ongoing for a week or longer. No indication for Tamiflu or Paxlovid.. There is no signs at this point of serious bacterial infection such as OM, RPA, epiglottitis, CHIEF TELEPHONE OPERATOR, strep pharyngitis, pneumonia, sinusitis, meningitis, bacteremia, serious bacterial infection. Given clear lungs, fever curve, no hypoxia and no respiratory distress I do not feel a CXR is indicated at this point as the probability of bacterial pneumonia is very unlikely. There are no gastrointestinal symptoms at this point and no signs of dehydration. Close followup with primary care physician is indicated. Return to ED for fever > 103, protracted vomiting, confusion, or other worsening. Discharge Plan Discharge Clinical Impression: Acute upper respiratory infection, Cellulitis of head or scalp Patient Disposition: Home, Self-Care Condition: Stable Instructions: Cellulitis (ED), Upper Respiratory Infection (DC) Additional Instructions: As we discussed, please return to the ER right away if you have worsening infection in your scalp, high fever, worsening cough or shortness of breath, or any other concerns. Please follow-up with your regular doctor for recheck next week to make sure your scalp infections are getting better and follow-up with her revenue audit clerk as soon as possible for recheck. You may ask your revenue audit clerk to consider further workup to determine the etiology of your scalp sores. You may need further testing with cultures and biopsy. Prescriptions: No Action cholecalciferol (vitamin D3) 50 mcg (2,000 unit) tablet 2,000 unit PO DAILY fluticasone propion-salmeterol 230-21 mcg/actuation HFA aerosol inhaler 1 inh inhalation BID fluoxetine 20 mg capsule 40 mg PO DAILY lysine 500 mg tablet 500 mg PO Q12H epinephrine 0.3 mg/0.3 mL auto-injector 0.3 mg IM .As Needed PRN montelukast 10 mg tablet 10 mg PO .Bedtime omeprazole 20 mg capsule,delayed release(DR/EC) 20 mg PO BID divalproex 125 mg tablet,delayed release (DR/EC) 500 mg PO QHS levothyroxine 125 mcg tablet 125 mcg PO DAILY tizanidine 2 mg capsule 2 mg PO Q8H PRN gabapentin 300 mg capsule 300 mg PO Q8H buspirone 5 mg tablet 30 mg PO BID Lactobacillus acidophilus Capsule 10 mg PO QDAY melatonin 3 mg capsule 6 mg PO .Bedtime as needed PRN albuterol sulfate 90 mcg/actuation HFA aerosol inhaler 2 inh inhalation Q4H PRN ipratropium-albuterol 0.5 mg-3 mg(2.5 mg base)/3 mL solution for nebulization 3 ml inhalation Q6-8H PRN clonidine HCl 0.1 mg tablet 0.1 mg PO Q12H fexofenadine [Allergy Relief (fexofenadine)] 180 mg tablet 180 mg PO DAILY benzoyl peroxide 10 % cleanser 1 applic topical DAILY mometasone 50 mcg/actuation spray,non-aerosol 2 spray intranasal Q12H Rx Instructions: administer into each nostril hydroxyzine HCl 25 mg tablet 25 mg PO Q6H PRN ketoconazole 2 % shampoo topical DAILY tizanidine 2 mg tablet 2 mg PO 3XD ondansetron HCl 8 mg tablet PO buspirone 30 mg tablet 30 mg PO BID methylprednisolone 4 mg tablet 4 - 12 mg PO DAILY Qty: 11 0RF Rx Instructions: 3 tablets by mouth once daily for 2 days, then 2 tablets by mouth daily for 2 days. Then 1 tablet on Monday. fluoxetine 40 mg capsule PO primidone 50 mg tablet 50 mg PO QPM sulfamethoxazole-trimethoprim 800-160 mg tablet 1 tab PO BID fluticasone propion-salmeterol [Wixela Inhub] 100-50 mcg/dose blister with device INHALATION Patient Comments: [NO ORIGINAL SIG] clobetasol 0.05 % solution 1 applic topical BID clindamycin phosphate 1 % solution topical Follow Up/Referrals: Leyla Sands DO [Primary Care Provider] - Stand Alone Forms: [facility] Info Instructions
--- OUTSIDE RECORDS SUMMARY | 2023-07-06 21:08 | XMS_ITS | Encounter Summary ---
Author Name [facility] Organization [facility] Address [address] [place] [address] Support Name Relationship Address Phone RU DIAZ Next of Kin [phone] [address] [address] DIAZ VENCES Emergency Contact [phone] [address] KAYLA BOND [id number] Insurance Providers: All historical and current Section Date Range: From patient's date of to the date document was created. This section includes the names of all active insurance providers for the patient. Insurance Provider Type of Coverage Plan Name Start of Policy Coverage End of Policy Coverage Group Number Member ID Insurance Provider's Telephone Number Policy Morrissey's Name Patient's Relationship to Policy Morrissey [facility] ([facility]) MEDICARE ADVANTAGE MCR ([facility]) Jan 12, 2016 [id number] [phone] SONIA VENCESIFER PATIENT [facility] [facility] ([facility]) MEDICARE ADVANTAGE MCR ([facility]) Mar 13, 2020 [id number] SONIA VENCES PATIENT [facility] [facility] ([facility]) MEDICARE ADVANTAGE MCR ([facility]) Mar 13, 2020 [id number] RU,SONIA CHARLESIFER PATIENT [facility] ([facility]) MEDICARE ADVANTAGE MCR ([facility]) Mar 13, 2020 [id number] [phone] RU,SONIA NNIFER PATIENT [facility] [facility] ([facility]) MEDICARE ADVANTAGE MCR ([facility]) Mar 13, 2020 [id number] RU,SONIA CHARLESIFER PATIENT [facility] ([facility]) MEDICARE ADVANTAGE MEDIC MARY ELLEN BRADLEY Mar 13, 2019 [id number] SONIA VENCES PATIENT Selected Encounter This section includes the information on record at [facility] for the Encounter. Date/Time Encounter Type Encounter Description Reason Provider Source August 02, 2022 03:00 PM OFFICE O/P EST MOD 30-39 MIN DERMATOLOGY ICD-10-CM L98.8 Oth disrd of the skin and subcutaneous tissue [facility]A DUMONT IHE Encounter Template Text not used by [facility] Assessments - Encounter Diagnoses This section includes the primary and secondary diagnoses documented for the Encounter. Date/Time Primary/Secondary Diagnosis Diagnosis Name Provider Source August 03, 2022 08:37 AM PRIMARY Oth disrd of the skin and subcutaneous tissue EMMA ABBOTT [facility] Plan of Treatment: Future Appointments (+ 6 months) and Future Tests (+/- 45 days) The Plan of Treatment section includes future care activities for the patient from all [facility] treatmentfacilities. This section includes future appointments and future orders which are active, pending or scheduled. Future Appointments This section includes appointments that were scheduled to occur 6 months from the date of the Encounter, up to a maximum of 20 appointments. The data comes from all [facility] treatment facilities. Appointment Date/Time Appointment Type Appointme nt Facility Name August 04, 2022 10:15 AM AMBUL[facility]ORY [place]IC[place] [facility] Aug 12, 2022 08:25 PM [facility]ORY [place]IC[place] [facility] Aug 14, 2022 05:21 PM [place]ORY [place]IC[place] [facility] Aug 18, 2022 09:00 AM AMB[facility]ORY - NONE [place] [facility] Aug 25, 2022 01:00 PM AMBULATORY - SURGERY [facility] Aug 31, 2022 09:00 AM AMBUL[facility]ORY [place]ICINE [place] [facility] Sep 01, 2022 06:00 PM [facility]ORY [place]ONE [place] [facility] Sep 02, 2022 10:20 AM AMB[place]ORY [place] SURGERY [place] [facility] Sep 06, 2022 03:32 PM AM[place]UL[facility]ORY [place]ICINE [place] [facility] Sep 12, 2022 02:59 PM [facility]ORY [place] NONE [place] [facility] Sep 27, 2022 02:00 PM AM[place]ULATORY - [place]ICINE [place] [facility] Sep 27, 2022 03:45 PM [facility]ORY [place]ONE [place] [facility] Oct 04, 2022 06:29 PM AMBULATORY - [place]ICINE [place] [facility] Oct 12, 2022 06:00 PM [facility]ORY [place]ONE [place] [facility] Oct 31, 2022 12:09 PM [facility]ORY [place]ONE [place] [facility] Nov 01, 2022 03:11 PM [facility] [place]ONE [place] [facility] Nov 09, 2022 03:30 PM AMBUL[place]ORY - [place] [facility] Nov 22, 2022 02:00 PM [facility] [place]ONE [place] [facility] Nov 28, 2022 02:21 PM [facility] [place]ONE [place] [facility] Dec 05, 2022 12:42 PM [facility] Lab Results: +/- 30 days of the encounter This section includes the Chemistry and Hematology Lab Results on record with [facility] for the patient. Radiology Reports and Pathology Reports are provided separately, in subsequent sections. Lab Results This section contains the Chemistry/Hematology Results that were resulted 30 days before or 30 daysafter the date of the Encounter. Date/Time Source Result Type Result - Unit Interpretation Reference Range Comment Aug 14, 2022 06:34 PM [facility] POC CREATININE Specimen Type: BLOOD No comment entered. Ordering Provider: CHARLIE GRECO Report Released Date/Time: Aug 14, 2022 06:36 PM Reporting Lab: [facility] [id number] Performing Lab: [facility] [id number] POC CREATININE 0.7 0.6-1.3 Aug 14, 2022 06:12 PM [facility] EXTRA GOLD GEL TUBE Specimen Type: SERUM No comment entered. Ordering Provider: CHARLIE GRECO Report Released Date/Time: Aug 14, 2022 06:12 PM Reporting Lab: [facility] [id number] Performing Lab: [facility] [phone] EXTRA GOLD GEL TUBE RECEIVED Aug 14, 2022 06:12 PM [facility] LIPASE Specimen Type: PLASMA No comment entered. Ordering Provider: CHARLIE GRECO Report Released Date/Time: Aug 14, 2022 06:01 PM Reporting Lab: [facility] [id number] Performing Lab: [facility] [id number] LIPASE 32 See_Commen t Aug 14, 2022 06:12 PM [facility] HCG, QUAL Specimen Type: URINE No comment entered. Ordering Provider: CHARLIE GRECO Report Released Date/Time: Aug 14, 2022 06:01 PM Reporting Lab: [facility] [id number] Performing Lab: [facility] [phone] HCG, QUAL NEGATIVE See_Commen t Aug 14, 2022 06:12 PM [facility] COMPREHENSIVE METABOLIC PANEL+MG Specimen Type: PLASMA No comment entered. Ordering Provider: CHARLIE GRECO Report Released Date/Time: Aug 14, 2022 06:01 PM Reporting Lab: [facility] [id number] Performing Lab: [facility] [id number] CREATININE 0.6 0.5-1.0 UREA NITROGEN 13 7-20 GLUCOSE 79 70-100 SODIUM 138 136-145 POTASSIUM 4.8 3.5-5.1 CHLORIDE 108 H 98-107 CO2 21 L 22-29 CALCIUM 9.7 8.4-10.2 PROTEIN,TOTAL 8.0 6.0-8.3 ALBUMIN 4.8 3.5-5.2 BILIRUBIN, TOTAL 0.3 0.2-1.2 MAGNESIUM 2.1 1.6-2.6 ANION GAP 9 5-15 ALKALINE PHOSPHATASE 87 40-150 ALT/SGPT 18 See_Commen t AST/SGOT 26 See_Commen t .CREAT EGFR(CKD-EPI) >90 See_Commen t Aug 14, 2022 06:12 PM [facility] CBC & DIFF Specimen Type: BLOOD Comment: Automated Differential Performed Ordering Provider: CHARLIE GRECO Report Released Date/Time: Aug 14, 2022 06:01 PM Reporting Lab: [facility] [phone] Performing Lab: [facility] [phone] WBC 18.70 H 4.0-11.0 RBC 5.41 H 4.0-5.4 HGB 14.0 11.5-16 HCT 42.9 34.5-48 MCV 79.3 L 80-100 MCH 25.9 L 27-33 MCHC 32.6 32.0-37.5 PLT 612 H 150-400 MPV 9.2 7.4-10.4 NEUT 72.7 LYMPHS 20.4 MONO 4.7 EOSINO 1.3 BASO 0.5 RDW 15.6 H 11.5-14.5 ABS LYMPH 3.81 1.0-4.0 ABS MONO 0.87 0.1-1.0 ABS NEUT 13.60 H 2.0-7.7 ABS EOS 0.24 0-0.5 ABS BASO 0.10 0-0.2 IG(META,MYELO,SD O) 0.4 ABS IMMATURE GRAN 0.08 0-0.1 Aug 14, 2022 06:12 PM [facility] URINALYSIS Specimen Type: URINE No comment entered. Ordering Provider: KAILEE AZAR Report Released Date/Time: Aug 14, 2022 06:23 PM Reporting Lab: [facility] [phone] Performing Lab: [facility] [phone] URINE COLOR YELLOW SPECIFIC GRAVITY 1.028 1.0 03-1.03 5 URINE BILIRUBIN NEGATIVE See_ Commen t URINE KETONES TRACE See_Co mmen t URINE GLUCOSE NEGATIVE See_Co mmen t URINE PROTEIN 30 See_Co mmen t URINE PH 6.5 5.0-8.0 URINE WBC/HPF 10 H 0-7 URINE BACTERIA NONE SEEN URINE RBC/HPF 3 0-3 APPEARANCE CLEAR SQUAMOUS EPITHELIAL 3 URINE BLOOD NEGATIVE See_Comm en t URINE NITRITE NEGATIVE See_Co mmen t LEUKOCYTE ESTERASE 250 See_Commen t Aug 12, 2022 09:00 PM [facility] DRUG SCREEN PANEL,URINE Specimen Type: URINE Comment: Presumptive Positive by screen, results not confirmed. Ordering Provider: BERKLEY LÓPEZ Report Released Date/Time: Aug 12, 2022 08:52 PM Reporting Lab: [facility] [phone] Performing Lab: [facility] [phone] BARBITURATES POSITIVE H See_Com men t AMPHETAMINES Negative See_Com men t COCAINE Negative See_Commen t BENZODIAZEPINES Negative See_ Commen t CANNABINOIDS POSITIVE H See_Com men t METHADONE Negative See_Commen t OPIATES Negative See_Commen t PHENCYCLIDINE Negative See_Co mmen t ETHANOL,URINE Negative See_Co mmen t DRUG SCREEN CREAT 113.7 See_Commen t OXYCODONE Negative See_Commen t BUPRENORPHINE Negative See_Co mmen t TRAMADOL Negative See_Commen t FENTANYL Negative See_Commen t Social History: Smoking Status (Most current) and Tobacco Use (All prior to encounter date) This section includes the most current, and the historical, smoking and tobacco- related health factors from the [facility] facility where the Encounter took place. Current Smoking Status This section includes the most current smoking, or tobacco-related health factor, from the [facility] facility where the Encounter took place. Date/Time Current Smoking Status Comment Facil ity Jun 17, 2015 07:02 AM FORMER TOBACCO USE >1Y <7Y [facility] Tobacco Use History This section includes a history of the smoking, or tobacco-related health factors, that were collected on or before the date of the Encounter. The data comes from the [facility] facility where the Encounter took place. Date/Time Smoking Status/Tobacco Use Comment F acility July 30, 2014 09:31 AM FORMER TOBACCO USE <1Y [facility] Radiology Reports: +/- 30 days of the encounter Radiology Reports For cases when an order for radiology services may have been completed prior to the date of the Encounter, the report list includes the Radiology Reports that were completed up to 30 days before dateof the Encounter. For cases when an order for radiology services may have been completed after the date of the Encounter, the report list also includes the Radiology Reports that were completed up to30 days after date of the Encounter. The data comes from all [facility] treatment facilities. Date/Time Radiology Report Provider Source Aug 14, 2022 06:[address] (AP) ABDOMEN/PELVIS (P): APPLE VENCESAYNE [id number] Exm Date: AUG 14, 2022@18:22 Req Phys: CHARLIE GRECO Loc: [email or web address] EMERGENCY DEPT WALK-IN (Re Img Loc: CT IMAGING Service: Unknown Screen: Patient answered no (Case [id number] COMPLETE) CT (AP) ABDOMEN/PELVIS W CONTRAST(CT Detailed) CPT:25441 Contrast Media : Non-ionic Iodinated Reason for Study: abdominal pain, elevated WBC Clinical History: [place] IS NOT under investigation for COVID-19 or is COVID-19 negative Defer to radiologist for final CT protocol. Please enter pertinent clinical history on the next page. Responsible provider name and phone number to notify for critical findings if other than user placing the order and pager listed below: User placing orders pager: LAST 3: Collection DT Specimen Test Name Result Units Ref Range 06/28/2022 13:49 PLASMA CREATININE 0.4 L mg/dL 0.5 - 1.0 05/31/2021 20:21 PLASMA CREATININE 0.8 mg/dL 0.5 - 1.0 03/08/2021 15:22 PLASMA!! CREATININE 0.5 mg/dL 0.5 - 1.0 06/28/2022 13:49 PLASMA .CREAT EGFR(CKD-E >90 Ref: >=60 05/31/2021 20:21 PLASMA .CREAT EGFR(CKD-E >90 Ref: >=60 03/08/2021 15:22 PLASMA!! ESTIMATED GFR(eGF >60 Ref: >=60 01/27/2020 14:58 PLASMA ESTIMATED GFR(eGF >60 Ref: >=60 06/17/2015 11:19 PLASMA ESTIMATED GFR(eGF >60 Ref: >=60 !! Indicates COMMENTS AVAILABLE...Refer to Interim Lab Report. Allergies: ([place] only) TETRACYCLINE (July 30, 2014) VENLAFAXINE (July 30, 2014) OXYCODONE (July 30, 2014) PREDNISONE (July 30, 2014) QUETIAPINE (July 30, 2014) TRAMADOL (July 30, 2014) TRAZODONE (July 30, 2014) To see allergies from all [facility] locations click Reports tab>Remote Data>All Available Sites>Clinical Reports>Allergies. Report Status: Verified Date Reported: AUG 14, 2022 Date Verified: AUG 14, 2022 Principle Software Engineer E-Sig: Report: EXAMINATION: CT (AP) ABDOMEN/PELVIS W CONTRAST [PRINTSET] Clinical History: abdominal pain, elevated WBC. Comparison: No priors available Technique: Axial CT scanning of the abdomen and pelvis was performed from the lung bases through the symphysis pubis without administration of oral and during administration of intravenous contrast. The study was protocoled and supervised at the local [facility] facility. 777 images were subsequently received by the [facility] (NTP) for interpretation. Total DLP (mGy*cm): 325 IV Contrast Type: Omnipaque 350 IV Contrast Dose: 78 mL Findings: Lung Bases: There is a 1.8 x 3.2 x 0.5 cm right middle lobe groundglass opacity. It may represent a small infiltrate. Recommend follow-up. Scarring or subsegmental atelectasis is noted in the left posterior lower lobe. There is no consolidation or effusion. The heart is not enlarged. Liver: The liver is enlarged. It measures 19.7 cm at the midclavicular line. The portal vein is patent. Gallbladder: Present. The common bile duct measures 0.4 cm in diameter. Spleen: The spleen is not enlarged. The splenic vein is patent. Pancreas: The pancreas is within limits of normal. Adrenals: The adrenals are within limits of normal. Kidneys: Equal and symmetric nephrogram is noted bilaterally. No caliectasis is noted on either side. The ureters are within limits of normal on both sides. No evidence of ureterolithiasis is seen bilaterally. Urinary Bladder: The urinary bladder is underdistended. It is not evaluated well on this study. The uterus measures 6.3 x 3.8 x 4.8 cm. Bowel: Evaluation of the bowel is compromised by lack of oral contrast. There is no CT evidence for acute diverticulitis. The appendix is radiographically normal. The tip measures 0.7 cm on image #81 series #3. The small bowel than trace no evidence for obstruction. The stomach is distended with gastric contents and air. There is a small hiatal hernia. Bones: The visualized spine demonstrates no acute abnormality. There is a sclerotic density projecting over the right inferior pubic ramus. Another sclerotic density is seen projecting over the left sacrum. They are likely bone islands. If indicated, consider a bone scan for confirmation. The abdominal aorta is normal in caliber. There is no significant groin lymphadenopathy. There is no significant pelvic lymphadenopathy. There is no significant retroperitoneal lymphadenopathy. There is no CT evidence for free intraperitoneal air. There is no CT evidence for a drainable collection. There is a fat-containing umbilical hernia. There is a 0.5 x 0.4 cm right breast calcification on image #4 series #2. If indicated, consider correlation with a recent mammography. Impression: 1. There is a prominent right middle lobe groundglass opacity. It may represent an infiltrate. Recommend follow-up. 2. There is a small right breast calcification. 3. Other findings as described READING PHYSICIAN: Julien Mena MD -[id number] 08/14/2022 21:03 EDT [facility] National Teleradiology Program [phone] (For Medical Practitioner Use Only) Attention Patients / Veterans: If you have questions or concerns about these test results, please contact your ordering provider or primary care team. Primary Interpreting Staff: RADIOLOGY,OUTSIDE SERVICE, Staff Physician / RADIOLOGY,OUTSIDE SERVICE [facility] Pathology Reports: +/- 30 days of the encounter Pathology Reports For cases when an order for pathology services may have been completed prior to the date of the Encounter, the report list includes the Pathology Reports that were completed up to 30 days before dateof the Encounter. For cases when an order for pathology services may have been completed after the date of the Encounter, the report list also includes the Pathology Reports that were completed up to30 days after date of the Encounter. The data comes from all [facility] treatment facilities. Date/Time Pathology Report Provider Source Aug 14, 2022 08:24 PM LR MICROBIOLOGY RE PORT: Reporting Lab: [facility] [CLIA# [id number]] [place] [address] Accession [UID]: [id number] [[id number]] Received: Aug 14, 2022@20:24 Collection sample: URINE Collection date: Aug 14, 2022 20:24 Provider: CHARLIE GRECO Comment on specimen: RECEIVED IN STERILE CUP Test(s) ordered: CULTURE & SUSCEPTIBILITY...... completed: Aug 16, 2022 * BACTERIOLOGY FINAL REPORT => Aug 16, 2022 12:40 TECH CODE: [id number] CULTURE RESULTS: 1. SMALL, AEROBIC GRAM POSITIVE RODS - Quantity: >100,000 Comment: No susceptibility testing performed. 2. LESS THAN 10,000 OTHER ORGANISM Bacteriology Remark(s): THIS REPORT IS FINAL =--=--=--=--=--=--=--=--=--=--=--=- -=--=--=--=--=--=--=--=--=--=--=--= --=--=-- Performing Laboratory: Bacteriology Report Performed By: [facility] [CLIA# [id number]] [place] [address] [facility] August 02, 2022 04:00 PM LR MICROBIOLOGY RE PORT: Reporting Lab: [facility] [CLIA# [id number]] [place] [address] Accession [UID]: [id number] [[id number]] Received: August 02, 2022@16:20 Collection sample: WOUND Collection date: August 02, 2022 16:00 Provider: ERNST ABBOTT Comment on specimen: SCALP WOUND, SWAB RECEIVED Test(s) ordered: GRAM STAIN.................... completed: August 02, 2022 17:17 CULTURE & SUSCEPTIBILITY...... completed: August 04, 2022 * BACTERIOLOGY FINAL REPORT => August 04, 2022 12:52 TECH CODE: [id number] GRAM STAIN: DIRECT SMEAR of specimen before culturing shows: NO PMNS SEEN 1+ EPITHELIAL CELLS NO ORGANISMS SEEN CULTURE PENDING CULTURE RESULTS: STAPHYLOCOCCUS EPIDERMIDIS - Quantity: 2+ Comment: No susceptibility testing performed. Bacteriology Remark(s): THIS REPORT IS FINAL =--=--=--=--=--=--=--=--=--=--=--=- -=--=--=--=--=--=--=--=--=--=--=--= --=--=-- Performing Laboratory: Bacteriology Report Performed By: [facility] [CLIA# [id number]] [place] [address] [facility] Encounter Notes: All associated encounter notes This section contains the clinical notes associated to the Encounter. Date/Time Encounter Note(s) Provider Source Apr 04, 2023 05:46 PM ADDENDUM: LOCAL TITLE: Addendum STANDARD TITLE: ADDENDUM DATE OF NOTE: APR 04, 2023@17:46:30 ENTRY DATE: APR 04, 2023@17:46:31 AUTHOR: KY TAVAREZ I EXP COSIGNER: URGENCY: STATUS: COMPLETED Pt lost t o follow-up. Will schedul in follow-up within 4-12 weeks /jose armando/ KY TAVAREZ MD INTERNAL MEDICINE/DERMATOLOGY STAFF Signed: 04/04/2023 17:46 Receipt Acknowledged By: 04/10/2023 13:59 /jose armando/ MARY MORROW MSA LEAD RAILCAR BRAKE OPERATOR --- Original Document --- 08/02/22 DERMATOLOGY CONSULT: DERMATOLOGY CONSULT Dermatology Problem List: # Acne/folliculitis excoriee of the scalp # Skin picking # Hx MRSA - clindamycin topical, keto shampoo, dilute vinegar soaks - wound swab pending 08/02/22 - avoiding systemic abx as able - relevant additional: borderline personality disorder following with psychiatry (fluoxetine and clonidine as of 07/2022) - Future considerations: NAC, SSRI modifications (currently fluoxetine, would discuss with psychiatry if needed), hydrocolloid dressings, +/- risperdal if needed (again, discuss with psychiatry if needed) HISTORY OF PRESENT ILLNESS APPLE VENCES is a 51 year old FEMALE who presents today for evaluation of: Recurrent/chronic scalp folliculitis with hx MRSA From [facility] 04/29/22 Scalp condition: Patient has struggled with scalp dermatitis for nearly 10 years. She has seen multiple dermatology providers, infectious disease. Believes she has had MRSA growing from the wound in the past. The lesions can occur all over her scalp and are not just in one condition. Can occasionally have purulent drainage, but does not at present. She has tried multiple oral antibiotics, topical antifungal solution, topical steroids, topical antibiotics but the lesions continue to recur. As stated above she does not follow a gluten-free diet. Reports she's seen [facility], derm and ID at [place], Lili, you're the 12th doctor. Has tried topical clindamycin, 100% vinegar, doxycycline, bactrim. Thinks she should be put on penicillin. Clindamycin and vinegar help, but it always recurs. Ketoconazole shampoo essential for her. Per notes available in [facility], it appears she saw Derm at [facility] Jason Sahni (Dr. Pastor) in 2021 Diagnoses: Excoriated dermatitis, acne excoriae question infectious component and scalp pruritus. Following the 1st visit trimethoprim/sulfamethoxazole treatment duration was extended. At the time of the 2nd visit, doxycycline was prescribed. Also saw ID (Dr. Mckeon) RECOMMENDATIONS: 1. I discussed my opinion that the patient's skin condition / pruritus is not due to a chronic or recurrent bacterial infection. The main issue appears to be chronic pruritus leading to excoriations of the scalp and skin. The patient's skin concerns have become overwhelming for the patient. 2. Oral antibiotics should be avoided for the chronic pruritus complaints unless the patient develops a secondary bacterial skin infection, and then limited to just a few days of therapy. Dermatology may want to consider an oral antibiotic for use as part of an acne management program, if they feel that it is warranted from the acne standpoint. 3. The patient became very tearful when I discussed my impressions with her. This discussion took place in the presence of one of our nurses. History today largely consistent with above, though with one exception: States today that it's not really an itching. It's more of a feeling that she has infected spots that she needs to get something out of them. Happens on scalp and, occasionally, her hands and arms. Currently fairly quiescent, mostly on her L scalp. Never has happened on other parts of her body. No one around her with similar symptoms. Also carries dx of BPD, following with psychiatry on fluoxetine and clonidine. Otherwise no new, tender, non-healing, burning, bleeding, tingling, pruritic lesions. Denies fevers, chills, unintended weight loss, night sweats, energy changes, new headaches or vision changes. Wears sunscreen sometimes. No other concerns today. REVIEW OF SYSTEMS: CONST: Otherwise in baseline state of health. SKIN: As above in HPI, no additional skin concerns. PAST MEDICAL HISTORY Active problems - Computerized Problem List is the source for the followin. Recurrent major depressive episodes, severe, with psychosis - suicide attempt/hospitalization [place] 1991 2. Family history of disorder - Fa depression, HT - sister bipolar, hypothyroidism, type 2 DM - Mo - depression - Mat GF prostate cancer 3. 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 H/O: - - vaginal 5. Acne (SNOMED CT [id number]) 6. Closed fracture of fifth metatarsal bone - 03/2011: ORIF right 5th MT fx 7. Gastroesophageal reflux disease - resolved with elimination of gluten 8. Anxiety disorder 9. Tear of medial meniscus of knee - left, no surgery - concurrent patellofemoral symptoms 10. Mild persistent asthma - triggers cold exposure and allergies 11. Hypothyroidism - onset 2007 12. Celiac disease - EGD 10/2011 13. Steatosis of liver - with transaminase elevation 14. Chronic low back pain - [facility] 05/23, 08/24, 02/23, 05/25; MEDX ordered 05/25 - MRI 07/24: annular bulge L4-5 with encroachment lt L4 nerve - 07/24: sm disc protrusion L5-S1, mild facet arthr L4-5/L5-S1 - 07/26 MRI multilevel disc/facet joint degeneration 15. Nicotine dependence - onset age 18, 14 ppd, quit 8 years, E cigs use 03/27 16. Schizoaffective disorder - feels like she is being watched, auditory hallucinations 17. Perennial allergic rhinitis - on daily AH 18. Common migraine - generalized CARRERA with preceding scotomata 19. Cyst of breast - right breast cysts drained 2013 20. Chronic pain syndrome - headaches and low back, on daily narcotics since 2011 - narcotics stopped 07/2014 21. Mixed hyperlipidemia - primarily hypertriglyceridemia 22. Angioedema of tongue - related to certain foods(gluten, raspberries) 23. MDD, Recurrent, unspec 24. Herpes labialis 25. Acute gastric ulcer - 04/28 EGD done for dysphagia, normal esophagus - Gastric ulcer with clean base, bx 26. Dysphagia - 04/28 EGD nml esophagus, probable globus pharyngeus 27. Knee pain (SNOMED CT [id number]) - bilateral, RX hyaluronic and [employer] injections 28. health maintenance - 05/28/13 normal Pap cytology - 09/25/14 mammogram/ultrasound 29. Lumbar disc prolapse with radiculopathy 30. Morbid obesity - telemove July 2015 31. Refractory migraine with aura - The headaches have failed to respond to aggressive treatments & are productive of severe economic inadaptability. G43.809 32. Contusion of right hip region 33. History of methicillin resistant Staphylococcus aureus infection MEDICATIONS Active Outpatient Medications (including Supplies): Active Outpatient Medications Status 1) ALBUTEROL 90MCG (CFC-F) 200D ORAL INHL INHALE 1-2 ACTIVE PUFFS BY MOUTH EVERY 4 HOURS NEEDED FOR SHORTNESS OF BREATH SHAKE WELL (FOR IMMEDIATE RELIEF). FOR SHORTNESS OF BREATH 2) CLINDAMYCIN PHOSPHATE 1% TOP SOLN APPLY TO AFFECTED ACTIVE AREA TOPICALLY TWICE A DAY NEEDED FOR FOLLICULITIS EXTERNAL USE ONLY 3) CLONIDINE HCL 0.1MG TAB TAKE ONE TABLET BY MOUTH ACTIVE TWICE A DAY 4) DIVALPROEX 500MG 24HR (ER) SA TAB TAKE ONE TABLET BY ACTIVE (S) MOUTH AT BEDTIME 5) EPINEPHRINE (EQV-EPI-PEN) 0.3MG/0.3ML INJECT 1 PEN ACTIVE DIRECTED NEEDED FOR ANAPHYLACTIC REACTION 6) FEXOFENADINE HCL 180MG TAB TAKE ONE TABLET BY MOUTH ACTIVE EVERY DAY FOR ALLERGIES 7) FLUOXETINE HCL 20MG CAP TAKE TWO CAPSULES BY MOUTH ACTIVE (S) EVERY DAY 8) FLUTICAS 100/SALMETEROL 50 INHL DISK 60 INHALE 1 PUFF ACTIVE (S) BY INHALATION TWICE A DAY FOR ASTHMA *RINSE MOUTH AFTER EACH USE* 9) FLUTICASONE PROP 50MCG 120D NASAL INHL SPRAY 2 SPRAYS ACTIVE IN EACH NOSTRIL EVERY DAY FOR ALLERGIES 10) GABAPENTIN 300MG CAP TAKE THREE CAPSULES BY MOUTH ACTIVE TWICE A DAY FOR PAIN AND NUMBNESS 11) KETOCONAZOLE 2% SHAMPOO SHAMPOO SCALP TOPICALLY 3 ACTIVE TIMES WEEKLY SCALP INFECTION *LATHER FOR 5 MINUTES THEN RINSE* 12) LEVOTHYROXINE NA (SYNTHROID) 112MCG TAB TAKE ONE ACTIVE TABLET BY MOUTH EVERY DAY FOR THYROID 13) MECLIZINE HCL 25MG CHEW TAB CHEW ONE TABLET BY MOUTH ACTIVE TWICE A DAY NEEDED FOR MIGRAINE ASSOCIATED DIZZINESS -MAY BE CHEWED OR SWALLOWED 14) MONTELUKAST NA 10MG TAB TAKE ONE TABLET BY MOUTH ACTIVE EVERY EVENING FOR ASTHMA 15) TIZANIDINE HCL 4MG TAB TAKE ONE-HALF TABLET BY MOUTH ACTIVE THREE TIMES A DAY NEEDED FOR MUSCLE SPASMS/TIGHTNESS Pending Outpatient Medications Status 1) MELATONIN CAP/TAB TAKE 3 TAB (9 MG) 3MG BY MOUTH AT PENDING BEDTIME FOR SLEEP Active Non-VA Medications Status 1) Non-VA ACETAMINOPHEN 500MG TAB 1000MG MOUTH THREE ACTIVE TIMES A DAY 2) Non-VA ASPIRIN 400MG/CAFFEINE 30MG TAB 1 TABLET MOUTH ACTIVE EVERY DAY NEEDED 3) Non-VA BENZOYL PEROXIDE 10% (WATER BASED) GEL THIN ACTIVE LAYER EVERY DAY 4) Non-VA IBUPROFEN 200MG TAB 200MG MOUTH FOUR TIMES A ACTIVE DAY NEEDED 5) Non-VA LORAZEPAM 1MG TAB 1MG MOUTH AT BEDTIME ACTIVE 6) Non-VA NON VA MED NOT LISTED MISCELLANEOUS VOLUNTARY ACTIVE DISCLOSURE MEDICINAL CANNABIS EVERY DAY NEEDED 7) Non-VA PRIMIDONE 50MG TAB 50MG MOUTH AT BEDTIME ACTIVE 23 Total Medications ALLERGIES TETRACYCLINE (July 30, 2014) VENLAFAXINE (July 30, 2014) OXYCODONE (July 30, 2014) PREDNISONE (July 30, 2014) QUETIAPINE (July 30, 2014) TRAMADOL (July 30, 2014) TRAZODONE (July 30, 2014) EXAM: GEN: No acute distress. LYMPH: No cervical, supraclavicular, occipital, posterior auricular lymphadenopathy. SKIN: Focused exam of scalp, face, upper extremities - Angulated non-erythematous non-draining erosions and ulcerations on L rastafarian, L parietal scalp. - One angulated erosion on left proximal upper extremity - No weeping, exudative, warm wounds - Hemorrhagic crust under L fingernails - No acneiform lesions on face - Flesh-colored to light brown, waxy, stuck on papules and plaques. - Multiple regular brown pigmented macules and papules with uniform and unconcerning pigment networks on dermoscopy. - With accentuation in sun-exposed areas, there are light brown macules with uniform appearance. - Dome-shaped firm red papules. ASSESSMENT & PLAN: # Acne/folliculitis excoriee of the scalp # Skin picking # Hx MRSA Discussed with patient that her use of topical clindamycin and 100% vinegar makes current infection with MRSA unlikely. MRSA most likely secondarily infected a self-inflicted wound at one point, though that infection most likely treated given her long hx of abx treatment. Low suspicion for active infection today, though she could certainly have been recolonized. Affirmed the patient that her feelings of itch and needing to get an infection/condition on her scalp fixed are real and that we will work with her to find the right treatments. She is amenable to continuing her current management at home while we take another culture to prove there is no infection. Recommended she dilute her vinegar soaks to avoid causing an irritant contact dermatitis. Plan to avoid systemic abx if possible and gently introduce interventions aimed at avoiding skin picking and encouraging wound healing over time. Essential to develop positive relationship with our clinic as possible. Adequate management of her mental health including borderline personality disorder also essential, encouraged continuation of her SSRI. - Continue topical clindamycin BID PRN - Continue ketoconazole shampoo TIW - Dilute vinegar soaks PRN - Wound swab of scalp lesions for bacterial culture and gram stain - Future considerations: NAC, SSRI modifications (currently fluoxetine, would discuss with psychiatry if needed), hydrocolloid dressings, +/- risperdal if needed (again, discuss with psychiatry if needed) # Seborrheic keratoses, lentigines, clinically benign nevi, david angiomas. Reassured of benign etiology. - No further intervention required RTC 1 months for f/u. Advised sooner for any tender, painful, bleeding, rapidly changing, or otherwise concerning lesions. Dr. Dumont saw and evaluated the patient with me, and agrees with the findings, assessment and plan as outlined. Total encounter time (including chart review, counseling, documentation, ordering of labs/meds): 20 min Ernst Abbott MD Medicine/Dermatology PGY-2 --3218 /es/ ERNST ABBOTT MD RESIDENT PHYSICIAN Signed: 08/03/2022 08:37 08/05/2022 ADDENDUM STATUS: COMPLETED Test(s) ordered: GRAM STAIN.................... completed: August 02, 2022 17:17 CULTURE & SUSCEPTIBILITY...... completed: August 04, 2022 * BACTERIOLOGY FINAL REPORT => August 04, 2022 12:52 TECH CODE: [id number] GRAM STAIN: DIRECT SMEAR of specimen before culturing shows: NO PMNS SEEN 1+ EPITHELIAL CELLS NO ORGANISMS SEEN CULTURE PENDING CULTURE RESULTS: STAPHYLOCOCCUS EPIDERMIDIS - Quantity: 2+ Comment: No susceptibility testing performed. Bacteriology Remark(s): THIS REPORT IS FINAL No e/o MRSA or pathogenic bacteria that would explain symptoms, as expected. Letter sent. Ernst Abbott MD Medicine/Dermatology PGY-2 --3218 /es/ ERNST ABBOTT MD RESIDENT PHYSICIAN Signed: 08/05/2022 11:50 09/07/2022 ADDENDUM STATUS: COMPLETED no show. rtc prn /es/ LIANNA ARITA MD STAFF PHYSICIAN, DERMATOLOGY Signed: 09/07/2022 13:48 [place] TAVARE[facility] August 05, 2022 11:45 AM LETTERS: LOCAL TITLE: FOLLOW UP RESULTS LETTER STANDARD TITLE: LETTERS DATE OF NOTE: AUGUST 05, 2022@11:45 ENTRY DATE: AUGUST 05, 2022@11:45:22 AUTHOR: ERNST ABBOTT COSIGNER: URGENCY: STATUS: COMPLETED [facility] [address] [place] [address] July APPLE STEENVALENTINA VENCES [address] [place] [id number] Dear [place]: I am writing to inform you of the results of testing that you had done recently at the [facility]. Test(s) ordered: GRAM STAIN.................... completed: August 02, 2022 17:17 CULTURE & SUSCEPTIBILITY...... completed: August 04, 2022 * BACTERIOLOGY FINAL REPORT => August 04, 2022 12:52 TECH CODE: [id number] GRAM STAIN: DIRECT SMEAR of specimen before culturing shows: NO PMNS SEEN 1+ EPITHELIAL CELLS NO ORGANISMS SEEN CULTURE PENDING CULTURE RESULTS: STAPHYLOCOCCUS EPIDERMIDIS - Quantity: 2+ Comment: No susceptibility testing performed. Bacteriology Remark(s): THIS REPORT IS FINAL Comment: As we discussed and expected at your visit, there's no evidence here to suggest that you have a current infection with MRSA, which is great news! 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 The bacteria that did grow, staphylococcus epidermidis, is a normal and totally fine bacteria to have growing on your skin. It would be expected in a skin swab like this. We are looking forward to seeing you at your upcoming follow-up appointment at which time we can discuss additional strategies to help with your scalp issues. If you have any further questions or problems, please contact our nursing staff or provider at the following number: [phone]. Sincerely, Ernst Abbott MD [facility] ERNST ABBOTT MD RESIDENT PHYSICIAN ERNST ABBOTT [facility] August 02, 2022 03:23 PM DERMATOLOGY CONSULT: LOCAL TITLE: DERMATOLOGY CONSULT STANDARD TITLE: DERMATOLOGY CONSULT DATE OF NOTE: AUGUST 02, 2022@15:23 ENTRY DATE: AUGUST 02, 2022@15:23:45 AUTHOR: ERNST ABBOTT EXP COSIGNER: URGENCY: STATUS: COMPLETED DERMATOLOGY CONSULT Has ADDENDA DERMATOLOGY CONSULT Dermatology Problem List: # Acne/folliculitis excoriee of the scalp # Skin picking # Hx MRSA - clindamycin topical, keto shampoo, dilute vinegar soaks - wound swab pending 08/02/22 - avoiding systemic abx as able - relevant additional: borderline personality disorder following with psychiatry (fluoxetine and clonidine as of 07/2022) - Future considerations: NAC, SSRI modifications (currently fluoxetine, would discuss with psychiatry if needed), hydrocolloid dressings, +/- risperdal if needed (again, discuss with psychiatry if needed) HISTORY OF PRESENT ILLNESS APPLE VENCES is a 51 year old FEMALE who presents today for evaluation of: Recurrent/chronic scalp folliculitis with hx MRSA From [facility] 04/29/22 Scalp condition: Patient has struggled with scalp dermatitis for nearly 10 years. She has seen multiple dermatology providers, infectious disease. Believes she has had MRSA growing from the wound in the past. The lesions can occur all over her scalp and are not just in one condition. Can occasionally have purulent drainage, but does not at present. She has tried multiple oral antibiotics, topical antifungal solution, topical steroids, topical antibiotics but the lesions continue to recur. As stated above she does not follow a gluten-free diet. Reports she[facility] derm and ID at [facility], Lili, you're the 12th doctor. Has tried topical clindamycin, 100% vinegar, doxycycline, bactrim. Thinks she should be put on penicillin. Clindamycin and vinegar help, but it always recurs. Ketoconazole shampoo essential for her. Per notes available in [facility], it appears she saw Derm at [facility] (Dr. Pastor) in 2021 Diagnoses: Excoriated dermatitis, acne excoriae question infectious component and scalp pruritus. Following the 1st visit trimethoprim/sulfamethoxazole treatment duration was extended. At the time of the 2nd visit, doxycycline was prescribed. Also saw ID (Dr. Mckeon) RECOMMENDATIONS: 1. I discussed my opinion that the patient's skin condition / pruritus is not due to a chronic or recurrent bacterial infection. The main issue appears to be chronic pruritus leading to excoriations of the scalp and skin. The patient's skin concerns have become overwhelming for the patient. 2. Oral antibiotics should be avoided for the chronic pruritus complaints unless the patient develops a secondary bacterial skin infection, and then limited to just a few days of therapy. Dermatology may want to consider an oral antibiotic for use as part of an acne management program, if they feel that it is warranted from the acne standpoint. 3. The patient became very tearful when I discussed my impressions with her. This discussion took place in the presence of one of our nurses. History today largely consistent with above, though with one exception: States today that it's not really an itching. It's more of a feeling that she has infected spots that she needs to get something out of them. Happens on scalp and, occasionally, her hands and arms. Currently fairly quiescent, mostly on her L scalp. Never has happened on other parts of her body. No one around her with similar symptoms. Also carries dx of BPD, following with psychiatry on fluoxetine and clonidine. Otherwise no new, tender, non-healing, burning, bleeding, tingling, pruritic lesions. Denies fevers, chills, unintended weight loss, night sweats, energy changes, new headaches or vision changes. Wears sunscreen sometimes. No other concerns today. REVIEW OF SYSTEMS: CONST: Otherwise in baseline state of health. SKIN: As above in HPI, no additional skin concerns. PAST MEDICAL HISTORY Active problems - Computerized Problem List is the source for the followin. Recurrent major depressive episodes, severe, with psychosis - suicide attempt/hospitalization [facility] 1991 2. Family history of disorder - Fa depression, HT - sister bipolar, hypothyroidism, type 2 DM - Mo - depression - Mat GF prostate cancer 3. 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 H/O: - - vaginal 5. Acne (SNOMED CT [id number]) 6. Closed fracture of fifth metatarsal bone - 03/2011: ORIF right 5th MT fx 7. Gastroesophageal reflux disease - resolved with elimination of gluten 8. Anxiety disorder 9. Tear of medial meniscus of knee - left, no surgery - concurrent patellofemoral symptoms 10. Mild persistent asthma - triggers cold exposure and allergies 11. Hypothyroidism - onset 2007 12. Celiac disease - EGD 10/2011 13. Steatosis of liver - with transaminase elevation 14. Chronic low back pain - BRITTANY 05/23, 08/24, 02/23, 05/25; MEDX ordered 05/25 - MRI 07/24: annular bulge L4-5 with encroachment lt L4 nerve - 07/24: sm disc protrusion L5-S1, mild facet arthr L4-5/L5-S1 - 07/26 MRI multilevel disc/facet joint degeneration 15. Nicotine dependence - onset age 18, 1/2 ppd, quit 8 years, E cigs use 03/27 16. Schizoaffective disorder - feels like she is being watched, auditory hallucinations 17. Perennial allergic rhinitis - on daily AH 18. Common migraine - generalized CARRERA with preceding scotomata 19. Cyst of breast - right breast cysts drained 2013 20. Chronic pain syndrome - headaches and low back, on daily narcotics since 2011 - narcotics stopped 07/2014 21. Mixed hyperlipidemia - primarily hypertriglyceridemia 22. Angioedema of tongue - related to certain foods(gluten, raspberries) 23. MDD, Recurrent, unspec 24. Herpes labialis 25. Acute gastric ulcer - 04/28 EGD done for dysphagia, normal esophagus - Gastric ulcer with clean base, bx 26. Dysphagia - 04/28 EGD nml esophagus, probable globus pharyngeus 27. Knee pain (SNOMED CT [id number]) - bilateral, RX hyaluronic and [employer] injections 28. health maintenance - 05/28/13 normal Pap cytology - 09/25/14 mammogram/ultrasound 29. Lumbar disc prolapse with radiculopathy 30. Morbid obesity - telemove July 2015 31. Refractory migraine with aura - The headaches have failed to respond to aggressive treatments & are productive of severe economic inadaptability. G43.809 32. Contusion of right hip region 33. History of methicillin resistant Staphylococcus aureus infection MEDICATIONS Active Outpatient Medications (including Supplies): Active Outpatient Medications Status 1) ALBUTEROL 90MCG (CFC-F) 200D ORAL INHL INHALE 1-2 ACTIVE PUFFS BY MOUTH EVERY 4 HOURS NEEDED FOR SHORTNESS OF BREATH SHAKE WELL (FOR IMMEDIATE RELIEF). FOR SHORTNESS OF BREATH 2) CLINDAMYCIN PHOSPHATE 1% TOP SOLN APPLY TO AFFECTED ACTIVE AREA TOPICALLY TWICE A DAY NEEDED FOR FOLLICULITIS EXTERNAL USE ONLY 3) CLONIDINE HCL 0.1MG TAB TAKE ONE TABLET BY MOUTH ACTIVE TWICE A DAY 4) DIVALPROEX 500MG 24HR (ER) SA TAB TAKE ONE TABLET BY ACTIVE (S) MOUTH AT BEDTIME 5) EPINEPHRINE (EQV-EPI-PEN) 0.3MG/0.3ML INJECT 1 PEN ACTIVE DIRECTED NEEDED FOR ANAPHYLACTIC REACTION 6) FEXOFENADINE HCL 180MG TAB TAKE ONE TABLET BY MOUTH ACTIVE EVERY DAY FOR ALLERGIES 7) FLUOXETINE HCL 20MG CAP TAKE TWO CAPSULES BY MOUTH ACTIVE (S) EVERY DAY 8) FLUTICAS 100/SALMETEROL 50 INHL DISK 60 INHALE 1 PUFF ACTIVE (S) BY INHALATION TWICE A DAY FOR ASTHMA *RINSE MOUTH AFTER EACH USE* 9) FLUTICASONE PROP 50MCG 120D NASAL INHL SPRAY 2 SPRAYS ACTIVE IN EACH NOSTRIL EVERY DAY FOR ALLERGIES 10) GABAPENTIN 300MG CAP TAKE THREE CAPSULES BY MOUTH ACTIVE TWICE A DAY FOR PAIN AND NUMBNESS 11) KETOCONAZOLE 2% SHAMPOO SHAMPOO SCALP TOPICALLY 3 ACTIVE TIMES WEEKLY SCALP INFECTION *LATHER FOR 5 MINUTES THEN RINSE* 12) LEVOTHYROXINE NA (SYNTHROID) 112MCG TAB TAKE ONE ACTIVE TABLET BY MOUTH EVERY DAY FOR THYROID 13) MECLIZINE HCL 25MG CHEW TAB CHEW ONE TABLET BY MOUTH ACTIVE TWICE A DAY NEEDED FOR MIGRAINE ASSOCIATED DIZZINESS -MAY BE CHEWED OR SWALLOWED 14) MONTELUKAST NA 10MG TAB TAKE ONE TABLET BY MOUTH ACTIVE EVERY EVENING FOR ASTHMA 15) TIZANIDINE HCL 4MG TAB TAKE ONE-HALF TABLET BY MOUTH ACTIVE THREE TIMES A DAY NEEDED FOR MUSCLE SPASMS/TIGHTNESS Pending Outpatient Medications Status 1) MELATONIN CAP/TAB TAKE 3 TAB (9 MG) 3MG BY MOUTH AT PENDING BEDTIME FOR SLEEP Active Non-VA Medications Status 1) Non-VA ACETAMINOPHEN 500MG TAB 1000MG MOUTH THREE ACTIVE TIMES A DAY 2) Non-VA ASPIRIN 400MG/CAFFEINE 30MG TAB 1 TABLET MOUTH ACTIVE EVERY DAY NEEDED 3) Non-VA BENZOYL PEROXIDE 10% (WATER BASED) GEL THIN ACTIVE LAYER EVERY DAY 4) Non-VA IBUPROFEN 200MG TAB 200MG MOUTH FOUR TIMES A ACTIVE DAY NEEDED 5) Non-VA LORAZEPAM 1MG TAB 1MG MOUTH AT BEDTIME ACTIVE 6) Non-VA NON VA MED NOT LISTED MISCELLANEOUS VOLUNTARY ACTIVE DISCLOSURE MEDICINAL CANNABIS EVERY DAY NEEDED 7) Non-VA PRIMIDONE 50MG TAB 50MG MOUTH AT BEDTIME ACTIVE 23 Total Medications ALLERGIES TETRACYCLINE (July 30, 2014) VENLAFAXINE (July 30, 2014) OXYCODONE (July 30, 2014) PREDNISONE (July 30, 2014) QUETIAPINE (July 30, 2014) TRAMADOL (July 30, 2014) TRAZODONE (July 30, 2014) EXAM: GEN: No acute distress. LYMPH: No cervical, supraclavicular, occipital, posterior auricular lymphadenopathy. SKIN: Focused exam of scalp, face, upper extremities - Angulated non-erythematous non-draining erosions and ulcerations on L rastafarian, L parietal scalp. - One angulated erosion on left proximal upper extremity - No weeping, exudative, warm wounds - Hemorrhagic crust under L fingernails - No acneiform lesions on face - Flesh-colored to light brown, waxy, stuck on papules and plaques. - Multiple regular brown pigmented macules and papules with uniform and unconcerning pigment networks on dermoscopy. - With accentuation in sun-exposed areas, there are light brown macules with uniform appearance. - Dome-shaped firm red papules. ASSESSMENT & PLAN: # Acne/folliculitis excoriee of the scalp # Skin picking # Hx MRSA Discussed with patient that her use of topical clindamycin and 100% vinegar makes current infection with MRSA unlikely. MRSA most likely secondarily infected a self-inflicted wound at one point, though that infection most likely treated given her long hx of abx treatment. Low suspicion for active infection today, though she could certainly have been recolonized. Affirmed the patient that her feelings of itch and needing to get an infection/condition on her scalp fixed are real and that we will work with her to find the right treatments. She is amenable to continuing her current management at home while we take another culture to prove there is no infection. Recommended she dilute her vinegar soaks to avoid causing an irritant contact dermatitis. Plan to avoid systemic abx if possible and gently introduce interventions aimed at avoiding skin picking and encouraging wound healing over time. Essential to develop positive relationship with our clinic as possible. Adequate management of her mental health including borderline personality disorder also essential, encouraged continuation of her SSRI. - Continue topical clindamycin BID PRN - Continue ketoconazole shampoo TIW - Dilute vinegar soaks PRN - Wound swab of scalp lesions for bacterial culture and gram stain - Future considerations: NAC, SSRI modifications (currently fluoxetine, would discuss with psychiatry if needed), hydrocolloid dressings, +/- risperdal if needed (again, discuss with psychiatry if needed) # Seborrheic keratoses, lentigines, clinically benign nevi, david angiomas. Reassured of benign etiology. - No further intervention required RTC 1 months for f/u. Advised sooner for any tender, painful, bleeding, rapidly changing, or otherwise concerning lesions. Dr. Dumont saw and evaluated the patient with me, and agrees with the findings, assessment and plan as outlined. Total encounter time (including chart review, counseling, documentation, ordering of labs/meds): 20 min Ernst Abbott MD Medicine/Dermatology PGY-2 --3218 /jose armando/ ERNST ABBOTT MD RESIDENT PHYSICIAN Signed: 08/03/2022 08:37 08/05/2022 ADDENDUM STATUS: COMPLETED Test(s) ordered: GRAM STAIN.................... completed: August 02, 2022 17:17 CULTURE & SUSCEPTIBILITY...... completed: August 04, 2022 * BACTERIOLOGY FINAL REPORT => August 04, 2022 12:52 TECH CODE: [id number] GRAM STAIN: DIRECT SMEAR of specimen before culturing shows: NO PMNS SEEN 1+ EPITHELIAL CELLS NO ORGANISMS SEEN CULTURE PENDING CULTURE RESULTS: STAPHYLOCOCCUS EPIDERMIDIS - Quantity: 2+ Comment: No susceptibility testing performed. Bacteriology Remark(s): THIS REPORT IS FINAL No e/o MRSA or pathogenic bacteria that would explain symptoms, as expected. Letter sent. Ernst Abbott MD Medicine/Dermatology PGY-2 --3218 /jose armando/ ERNST ABBOTT MD RESIDENT PHYSICIAN Signed: 08/05/2022 11:50 09/07/2022 ADDENDUM STATUS: COMPLETED no show. rtc prn /jose armando/ LIANNA ARITA MD STAFF PHYSICIAN, DERMATOLOGY Signed: 09/07/2022 13:48 04/04/2023 ADDENDUM STATUS: COMPLETED Pt lost t o follow-up. Will schedul in follow-up within 4-12 weeks /jose armando/ [place] TAVAREZ MD INTERNAL MEDICINE/DERMATOLOGY STAFF Signed: 04/04/2023 17:46 Receipt Acknowledged By: * AWAITING SIGNATURE * JUSTIN KEYS [facility] R [facility]
--- OUTSIDE RECORDS SUMMARY | 2023-07-06 21:08 | XMS_ITS | Continuity of Care Document ---
Author Name [facility] Organization [facility] Care Team Providers Care Project Manager Name Role Phone [facility] Unavailable Unavailable Problems Combined list of problems from Department of Defense and Veterans Affairs facilities. It does not include entries that were removed or entered in error. Problem Status Onset Date Problem Type Date of Resolution Comments Source Refractory migraine with aura Active 2007 Condition Dec 30, 2019 Entered By: HEATHER NASSAR Comment: The headaches have failed to respond to aggressive treatments & are productive of severe economic inadaptability. G43.809 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 Entered By: PERFECTO LINN Comment: Cluster B traits [facility] Angioedema of tongue Active Condition July 30, 2014 En tered By: PERFECTO LINN Comment: related to certain foods(gluten, raspberries) [facility] Anxiety disorder Active Condition [facility] Celiac disease Active Condition July 122014 Entered By: PERFECTO LINN Comment: EGD 10/2011 [facility] Chronic low back pain Active Condition July 30, 2014 En tered By: PERFECTO LINN Comment: BRITTANY 05/23, 08/24, 02/23, 05/25; MEDX ordered 2014 Entered By: PERFECTO LINN Comment: MRI 07/24: annular bulge L4-5 with encroachment lt L4 nerveMay 2014 Entered By: PERFECTO LINN Comment: 07/24: sm disc protrusion L5-S1, mild facet arthr L4-5/L5-S1May 2015 Entered By: PERFECTO LINN Comment: 07/26 MRI multilevel disc/facet joint degeneration [facility] Chronic pain syndrome Active Condition July 30, 2014 En tered By: PERFECTO LINN Comment: headaches and low back, on daily narcotics since 2015 Entered By: PERFECTO LINN Comment: narcotics stopped 07/2014 [facility] Closed fracture of fifth metatarsal bone Active Condition July 30, 2014 Entered By: PERFECTO LINN Comment: 03/2011: ORIF right 5th MT fx [facility] Common migraine Active Condition July 30, 2014 Entered By: PERFECTO LINN Comment: generalized CARRERA with preceding scotomata [facility] Contusion of right hip region Active Condition [facility] Cyst of breast Active Condition July 122014 Entered By: PERFECTO LINN Comment: right breast cysts drained 2013 [facility] Dysphagia Active Condition Apr 20 Entered By: PERFECTO LINN Comment: 04/28 EGD nml esophagus, probable globus pharyngeus [facility] Family history of disorder Active Condition July 28, 2014 En tered By: PERFECTO LINN Comment: Fa depression, HTMay 2014 Entered By: PERFECTO LINN Comment: sister bipolar, hypothyroidism, type 2 DMMa2014 Entered By: PERFECTO LINN Comment: Mo - depressionMa2014 Entered By: PERFECTO LINN Comment: Mat GF prostate cancer [facility] Gastroesophageal reflux disease Active Condition July 30, 2014 Entered By: PERFECTO LINN Comment: resolved with elimination of gluten [facility] H/O: Active Condition July 112014 Entered By: PERFECTO LINN Comment: - vaginal [facility] health maintenance Active Condition Jun 17, 2015 En tered By: PERFECTO LINN Comment: 05/28/13 normal Pap cytologyJun 17, 2015 Entered By: PERFECTO LINN Comment: 09/25/14 mammogram/ultrasound [facility] Herpes labialis Active Condition [facility] History of methicillin resistant Staphylococcus aureus infection Active Condition [facility] Hypothyroidism Active Condition July 122014 Entered By: PERFECTO LINN Comment: onset 2007 [facility] Knee pain (SNOMED CT [id number]) Active Condition May 04, 2015 Entered By: PERFECTO LINN Comment: bilateral, RX hyaluronic and [employer] RESOURCE MANAGER injections [facility] Lumbar disc prolapse with radiculopathy Active Condition [facility] MDD, Recurrent, unspec Active Condition [facility] Mild persistent asthma Active Condition July 30, 2014 En tered By: PERFECTO LINN Comment: triggers cold exposure and allergies [facility] Mixed hyperlipidemia Active Condition Mar 31, 2015 Entered By: PERFECTO LINN Comment: primarily hypertriglyceridemia [facility] Morbid obesity Active Condition July Entered By: GUERRERO GEORGES Comment: telemove July 2015 [facility] Nicotine dependence Active Condition July 30, 2014 En tered By: PERFECTO LINN Comment: onset age 18, 1/2 ppd, quit 8 years, E cigs use 03/27 [facility] Perennial allergic rhinitis Active Condition July 30 Entered By: PERFECTO LINN Comment: on daily AH [facility] Recurrent major depressive episodes, severe, with psychosis Active Condition July 28, 2014 Entered By: PERFECTO LINN Comment: suicide attempt/hospitalizat [facility] 1991 [facility] Schizoaffective disorder Active Condition July 31, 2014 En tered By: PERFECTO LINN Comment: feels like she is being watched, auditory hallucinations [facility] Steatosis of liver Active Condition July 30, 2014 En tered By: PERFECTO LINN Comment: with transaminase elevation [facility] Suicidal ideation (SNOMED CT 3571611) Active Condition [facility] Tear of medial meniscus of knee Active Condition July 30 Entered By: PERFECTO LINN Comment: left, no surgeryMay 2014 Entered By: PERFECTO LINN Comment: concurrent patellofemoral symptoms [facility] headache syndromes Active Condition DoD visit for: services physical Inactive Condition [facility] personality disorder Active Condition [facility] allergic rhinitis Active Condition DoD shoulder strain left Inactive Condition DoD migraine headache Active Condition Do[facility] joint pain, localized in the shoulder Active Condition Toradol 60 mg IM. DoD earache Inactive Condition DoD acne Active Condition DoD patellofemoral syndrome Inactive Condition Exercises ordered. DoD headache Active Condition toradol 60 mg IM, tylenol and motrin are not helping headache DoD astigmatism regular Active Condition DoD Other Physical Therapy Inactive Condition DoD knee sprain Inactive Condition DoD joint pain, localized in the knee Active Condition DoD tendonitis Active Condition DoD pain in leg lower Inactive Condition DoD dysthymic disorder (depressive neurosis) Active Condition [facility] ankle joint pain Active Condition [facility] ankle sprain Inactive Condition DoD sinusitis Active Condition [facility] Patient Training And Self-Care Skills Additional 15 Minutes Active Condition DoD upper respiratory infection Inactive Condition DoD depression Active Condition DoD backache Inactive Condition DoD visit for: examination of subpopulation Inactive Condition DoD refractive error - myopia Active Condition Symptoms c/w sm all refractive change; ocular health normal, normal dilated fundus exam; normal IOPs, normal screening VF, 20/20 OD and OS with BVA. Headaches likely due to squinting to see.Final spec Rx:OD -[id number] -[id number]; new specs; order S-9s - FOC not authorized; spec Rx released. DoD astigmatism Active Condition DoD adjustment disorder with cultural shock Active Condition PT RE-ASSSURE D THAT THESE VAGUE SYMPTOMS ARE NOT DUE TO SOME UNDERLYING SERIOUS ILLNESS BUT A NATURAL FEELING TO BEING EXPOSED TO SUCH A NEW CULTURE SHE HAS WITH COMING ON ACTIVE DUTY. DoD unspecified muscle strain Inactive Condition [facility] DoD assess patient condition work-related occupational disease Inactive Condition [facility] Patient Education - Injury Prevention Inactive Condition [facility] visit for: ears / hearing exam Active Condition DoD Diagnosis: ICD-10-CM R21 Rash and other nonspecific skin eruption Active Diagnosis [facility] Diagnosis: ICD-10-CM L03.90 Cellulitis, unspecified Active Diagnosis [facility] Diagnosis: ICD-10-CM F41.9 Anxiety disorder, unspecified Active Diagnosis [facility] Diagnosis: ICD-10-CM F60.3 Borderline personality disorder Active Diagnosis [facility] Diagnosis: ICD-10-CM J18.9 Pneumonia, unspecified organism Active Diagnosis [facility] Diagnosis: ICD-10-CM Z86.14 Personal history of methicillin resis staph infection Active Diagnosis [facility] Diagnosis: ICD-10-CM F42.4 Excoriation (skin-picking) disorder Active Diagnosis [facility] Diagnosis: ICD-10-CM L98.8 Oth disrd of the skin and subcutaneous tissue Active Diagnosis [facility] Diagnosis: ICD-10-CM F25.9 Schizoaffective disorder, unspecified Active Diagnosis [facility] Medications Combined list of outpatient medications from Department of Defense and Veterans Affairs facilities.Medications provided include 1) outpatient medications from the last 15 months, and 2) patient-reported medications. Medication Details Route Status Patient Instructions Prescription Expires Prescription Number Last Dispense Date Ordering Provider Order Date Order Qty Source ACETAMINOPH EN 500MG TAB TAKE TWO TABLETS BY MOUTH THREE TIMES A DAY ORALLY ACTIVE NOING-PERFECTO EDEN 2014 [facility] ALBUTEROL 90MCG/ACTUA T (CFC-F) INHL,ORAL,8 .5GM DOSE COUNTER INHALE 1-2 PUFFS BY MOUTH EVERY 4 HOURS NEEDED FOR SHORTNES S OF BREATH SHAKE WELL (FOR IMMEDIAT E RELIEF). FOR SHORTNES S OF BREATH ORALLY 06/29/2023 [id number] 3 Rk JONES 2022 2 [facility] AMOXICILLIN TRIHYDRATE 500MG CAP TAKE TWO CAPSULES BY MOUTH THREE TIMES A DAY FOR PNEUMONI A ORALLY 09/13/2022 [id number] 3 ARMEN GRECO 2022 30 [facility] ASPIRIN 400MG/CAFFE INE 32MG TAB TAKE ONE TABLET BY MOUTH EVERY DAY NEEDED ORALLY ACTIVE CARMELO ARDON X 2020 [facility] BENZOYL PEROXIDE 10% (WATER BASED) GEL,TOP APPLY THIN LAYER EVERY DAY TOPICA LLY ACTIVE NOLTING-B PERFECTO BHARDWAJ 2014 [facility] Clindamycin (Cleocin T Eq.) Solution 1% Topical APPLY TO AFFECTED AREA TOPICALL Y TWICE A DAY NEEDED FOR FOLLICUL ITIS SURGICAL INSTRUMENT REPAIR SPECIALIST AL USE ONLY Active 04/04/2024 [id number] 4 JORGITO SHAH [address] [facility] Clindamycin (Cleocin T Eq.) Solution 1% Topical APPLY TO AFFECTED AREA TOPICALL Y TWICE A DAY NEEDED FOR FOLLICUL ITIS SURGICAL INSTRUMENT REPAIR SPECIALIST AL USE ONLY Discont inued 09/08/2023 [id number] JORGITO SHAH L 2023 60 [place] [facility] CLINDAMYCIN PO4 1% SOLN,TOP APPLY TO AFFECTED AREA TOPICALL Y TWICE A DAY NEEDED FOR FOLLICUL ITIS SURGICAL INSTRUMENT REPAIR SPECIALIST AL USE ONLY TOPICA LLY ACTIVE 04/04/2024 [id number] 4 JORGITO SHAH L 2023 60 [place] [facility] CLINDAMYCIN PO4 1% SOLN,TOP APPLY TO AFFECTED AREA TOPICALL Y TWICE A DAY NEEDED FOR FOLLICUL ITIS SURGICAL INSTRUMENT REPAIR SPECIALIST AL USE ONLY TOPICA LLY DISCONT INUED 09/08/2023 [id number] 3 LEONJORGITO KATHLEEN Luis Alberto 2022 60 [place] [facility] CLINDAMYCIN PO4 1% SOLN,TOP APPLY TO AFFECTED AREA TOPICALL Y TWICE A DAY NEEDED FOR FOLLICUL ITIS SURGICAL INSTRUMENT REPAIR SPECIALIST AL USE ONLY TOPICA LLY DISCONT INUED 06/29/2023 [id number] 3 Rk JONES 2022 60 [facility] CLONIDINE HCL 0.1MG TAB TAKE ONE TABLET BY MOUTH TWICE A DAY ORALLY ACTIVE 07/13/2023 [id number] 3 ESPINOZA GRAY IN L 2022 60 [facility] DIPHENHYDRA MINE HCL 50MG CAP TAKE ONE CAPSULE BY MOUTH EVERY 8 HOURS NEEDED FOR ITCHING ORALLY 05/03/2023 [id number] 4 ELDER ROLLINS A 2023 30 [place] [facility] Diphenhydra mine Hydrochlori de (Banophen Eq.) Capsule Conventiona l 50 mg Oral TAKE ONE CAPSULE BY MOUTH EVERY 8 HOURS NEEDED FOR ITCHING 05/03/2023 [id number] 4 ATIYA ROLLINS A [address] [facility] DIVALPROEX NA 500MG TAB,SA TAKE ONE TABLET BY MOUTH AT BEDTIME ORALLY ACTIVE 07/13/2023 [id number] 3 ESPINOZA GRAY IN L 2022 90 [facility] DIVALPROEX NA 500MG TAB,SA TAKE ONE TABLET BY MOUTH AT BEDTIME ORALLY DISCONT INUED 09/12/2022 [id number] 3 SA VASILIY RAH J 2022 90 [facility] DOXYCYCLINE HYCLATE 100MG TAB TAKE ONE TABLET BY MOUTH TWICE A DAY FOR CELLULIT IS ORALLY DISCONT INUED 10/06/2022 [id number] 3 [facility] [place] 20[facility] 14 [facility] DOXYCYCLINE HYCLATE 100MG TAB TAKE ONE TABLET BY MOUTH TWICE A DAY FOR CELLULIT IS * TAKE APART FROM MULTIVIT MORENO, ANTACID, CALCIUM, MAGNESIU M, IRON, OR ZINC. ORALLY 11/03/2022 [id number] 3 [facility] [place] 20[facility] 14 [facility] EPINEPHRINE (EQV-EPI-PE N) 0.3MG/0.3ML INJECTOR INJECT 1 PEN DIRECTED NEEDED FOR ANAPHYLA CTIC REACTION 06/29/2023 [id number] 3 Rk JONES 2022 2 [facility] FEXOFENADIN E HCL 180MG TAB TAKE ONE TABLET BY MOUTH EVERY DAY FOR ALLERGIE S ORALLY 06/29/2023 [id number] 4 Rk JONES M 2022 90 [facility] FLONASE-OTC (BRAND) 50 MCG LIZET SPSN [9.9] SPRAY 2 SPRAYS IN EACH NOSTRIL EVERY DAY FOR ALLERGIE S 06/29/2023 [id number] 4 DIAZ JONES [address] [facility] Fluoxetine (Prozac) Capsule Conventiona l 20 mg Oral TAKE TWO CAPSULES BY MOUTH EVERY DAY FOR DEPRESSI ON Active 08/15/2023 [id number] 4 CHARLIE GRECO 2023 180 [place] [facility] FLUOXETINE HCL 20MG CAP TAKE TWO CAPSULES BY MOUTH EVERY DAY FOR DEPRESSI ON ORALLY ACTIVE 08/15/2023 [id number] 4 ARMEN GRECO 2022 180 [place] [facility] FLUOXETINE HCL 20MG CAP TAKE TWO CAPSULES BY MOUTH EVERY DAY ORALLY DISCONT INUED (EDIT) 07/13/2023 [id number] 3 ISAAC,ER IN L 2022 180 [facility] FLUOXETINE HCL 20MG CAP TAKE TWO CAPSULES BY MOUTH EVERY DAY ORALLY DISCONT INUED 06/16/2022 [id number] 3 ISAAC,ER IN L 2021 180 [facility] FLUTICASONE 100MCG/SALM ETEROL 50MCG INHL,ORAL,D ISKUS,60 INHALE 1 PUFF BY INHALATI ON TWICE A DAY FOR ASTHMA *RINSE MOUTH AFTER EACH USE* INHALA TION ACTIVE 08/29/2023 [id number] 4 JORGITO SHAH 2023 3 [place] [facility] FLUTICASONE 100MCG/SALM ETEROL 50MCG INHL,ORAL,D ISKUS,60 INHALE 1 PUFF BY INHALATI ON TWICE A DAY FOR ASTHMA *RINSE MOUTH AFTER EACH USE* INHALA TION DISCONT INUED 09/26/2022 [id number] 3 Rk JONES 2022 3 [facility] FLUTICASONE 100MCG/SALM ETEROL 50MCG INHL,ORAL,D ISKUS,60 INHALE 1 PUFF BY INHALATI ON TWICE A DAY FOR ASTHMA *RINSE MOUTH AFTER EACH USE* INHALA TION DISCONT INUED 09/12/2022 [id number] 3 Rk JONES 2022 3 [facility] FLUTICASONE 100MCG/SALM ETEROL 50MCG INHL,ORAL,D ISKUS,60 INHALE 1 PUFF BY INHALATI ON TWICE A DAY FOR ASTHMA *RINSE MOUTH AFTER EACH USE* INHALA TION 04/02/2023 [id number] 3 Rk KWONG 2022 3 [facility] FLUTICASONE PROPIONATE 50MCG/SPRAY SOLN,NASAL, 16GM SPRAY 2 SPRAYS IN EACH NOSTRIL EVERY DAY FOR ALLERGIE S NASAL 06/29/2023 [id number] 4 KARENRk MAHER Nicolle 2022 3 [facility] FLUTICASONE /SALMETEROL , 100-50MCG, AER POW BA, INHALATION INHALE 1 PUFF BY INHALATI ON TWICE A DAY FOR ASTHMA *RINSE MOUTH AFTER EACH USE* Active 08/29/2023 [id number] 4 PABLO JORGITO Luis Alberto 2023 3 [place] [facility] FLUTICASONE /SALMETEROL , 100-50MCG, AER POW BA, INHALATION INHALE 1 PUFF BY INHALATI ON TWICE A DAY FOR ASTHMA *RINSE MOUTH AFTER EACH USE* 04/02/2023 [id number] 3 PABLO JORGITO Luis Alberto 2023 3 [place] [facility] [facility] FLUTICASONE /SALMETEROL , 100-50MCG, AER POW BA, INHALATION INHALE 1 PUFF BY INHALATI ON TWICE A DAY FOR ASTHMA *RINSE MOUTH AFTER EACH USE* Discont inued 09/26/2022 [id number] 3 DIAZ JONES 2022 3 [place] [facility] GABAPENTIN (U/D) 300 MG ORAL CAP TAKE THREE CAPSULES BY MOUTH TWICE A DAY FOR PAIN AND NUMBNESS 03/29/2023 [id number] 3 [facility]Z JONES 2023 [facility] [place] [facility]MG CAP TAKE THREE CAPSULES BY MOUTH TWICE A DAY FOR PAIN AND NUMBNESS ORALLY DISCONT INUED 09/26/2022 [id number] 3 Rk KWONG 2022 540 [facility] GABAPENTIN 300MG CAP TAKE THREE CAPSULES BY MOUTH TWICE A DAY FOR PAIN AND NUMBNESS ORALLY 03/29/2023 [id number] 3 Rk JONES 2022 540 [facility] IBUPROFEN 200MG TAB TAKE ONE TABLET BY MOUTH FOUR TIMES A DAY NEEDED ORALLY ACTIVE CARMELO ARDON X 2020 [place] [facility] [facility] KETOCONAZOL E 2 % TOP SHAM [120ML] SHAMPOO SCALP TOPICALL Y 3 TIMES WEEKLY SCALP INFECTIO N *LATHER FOR 5 MINUTES THEN RINSE* 06/23/2023 [id number] 4 DIAZ JONES 2023 120 [place] [facility] KETOCONAZOL E 2 % TOP SHAM [120ML] SHAMPOO SCALP TOPICALL Y 3 TIMES WEEKLY SCALP INFECTIO N *LATHER FOR 5 MINUTES THEN RINSE* 06/23/2023 [id number] 4 DIAZ JONES 2023 120 [place] [facility] KETOCONAZOL E 2% SHAMPOO SHAMPOO SCALP TOPICALL Y 3 TIMES WEEKLY SCALP INFECTIO N *LATHER FOR 5 MINUTES THEN RINSE* TOPICA LLY 06/23/2023 [id number] KARENRk NIKA Valverde 2022 120 [facility] LEVOTHYROXI NE NA 100MCG TAB (SYNTHROID) TAKE ONE TABLET BY MOUTH EVERY DAY FOR THYROID ORALLY ACTIVE 09/10/2023 [id number] 4 JORGITO SHAH 2023 90 [place] [facility] LEVOTHYROXI NE NA 100MCG TAB (SYNTHROID) TAKE ONE TABLET BY MOUTH EVERY DAY FOR THYROID ORALLY DISCONT INUED 04/02/2023 [id number] JORGITO SHAH 2023 90 [place] [facility] LEVOTHYROXI NE NA 100MCG TAB (SYNTHROID) TAKE ONE TABLET BY MOUTH EVERY DAY FOR THYROID ORALLY DISCONT INUED 03/28/2023 [id number] 3 JORGITO SHAH 2022 90 [place] [facility] LEVOTHYROXI NE NA 100MCG TAB (SYNTHROID) TAKE ONE TABLET BY MOUTH EVERY DAY FOR THYROID ORALLY DISCONT INUED 12/26/2022 [id number] JORGITO SHAH L 2022 90 [facility] LEVOTHYROXI NE NA 112MCG TAB (SYNTHROID) TAKE ONE TABLET BY MOUTH EVERY DAY FOR THYROID ORALLY DISCONT INUED 09/12/2022 [id number] 3 Rk JONES 2022 90 [facility] LORAZEPAM 1MG TAB TAKE ONE TABLET BY MOUTH AT BEDTIME ORALLY ACTIVE Rk JONES 2022 [facility] MELATONIN 3MG CAP/TAB TAKE 3 TAB (9 MG) 3MG BY MOUTH AT BEDTIME FOR SLEEP FOR SLEEP ORALLY 10/31/2022 [id number] 3 ESPINOZA GRAY IN L 2022 300 [facility] MONTELUKAST NA 10MG TAB TAKE ONE TABLET BY MOUTH EVERY EVENING FOR ASTHMA ORALLY DISCONT INUED 09/12/2022 [id number] 3 Rk JONES 2022 90 [facility] MONTELUKAST NA 10MG TAB TAKE ONE TABLET BY MOUTH EVERY EVENING FOR ASTHMA ORALLY 09/26/2022 [id number] 3 Rk JONES 2022 90 [facility] NON VA MED NOT LISTED USE VOLUNTAR Y DISCLOSU RE MEDICINA L CANNABIS EVERY DAY NEEDED MISCEL KIKA S ACTIVE CARMELO ARDON X 2020 [facility] PRIMIDONE 50MG TAB TAKE ONE TABLET BY MOUTH AT BEDTIME ORALLY ACTIVE Rk JONES 2022 [facility] SULFAMETHOX AZOLE 800MG/TRIME THOPRIM 160MG TAB TAKE 1 TABLET BY MOUTH TWICE A DAY FOR 5 DAYS FOR FOLLICUL ITIS, SINUSITI S ORALLY 09/11/2022 [id number] 3 SANJU LÓPEZ 2022 10 [facility] SULFAMETHOX AZOLE 800MG/TRIME THOPRIM 160MG TAB TAKE 1 TABLET BY MOUTH TWICE A DAY ORALLY 07/13/2022 [id number] 3 ROLANDO SENIOR M 2022 20 [place] [facility] TIZANIDINE HCL 4MG TAB TAKE ONE-HALF TABLET BY MOUTH THREE TIMES A DAY NEEDED FOR MUSCLE SPASMS/T IGHTNESS ORALLY 09/25/2022 [id number] 3 Everardo CARDONA NNE 2021 60 [facility] Fexofenadin e Hydrochlori de (Telfast) Tablet 180 mg Oral TAKE ONE TABLET BY MOUTH EVERY DAY FOR ALLERGIE S 06/29/2023 [id number] EMMA JONESIE Nicolle [address] [facility] Allergies, Adverse Reactions, Alerts Combined list of allergies from Department of Defense and Veterans Affairs facilities. It does not include entries that were removed or entered in error. Substance Category Reaction Severity Reaction type Status Date Reported Comments Source Oxycodone Drug allergy (disorder) Nausea active 5 [facility] OXYCODONE Propensity to adverse reactions to drug (finding) [facility]a [facility] Prednisone Drug allergy (disorder) [facility] PREDNISONE Propensity to adverse reactions to drug (finding) Paresthesia active 5 [facility] QUETIAPINE Propensity to adverse reactions to drug (finding) Nightmares active 5 [facility] Quetiapine Fumarate Drug allergy (disorder) Nightmares [facility] Tetracycline Drug allergy (disorder) active 5 [facility] TETRACYCLINE Propensity to adverse reactions to drug (finding) active 5 [facility] TRAMADOL Propensity to adverse reactions to drug (finding) Urticaria active 5 [facility] Tramadol HCl Drug allergy (disorder) Urticaria active 5 [facility] Trazodone Drug allergy (disorder) Memory impairment active 5 [facility] TRAZODONE Propensity to adverse reactions to drug (finding) Memory impairment active 5 [facility] VENLAFAXINE Drug allergy (disorder) Sweats active 5 [facility] Venlafaxine Hydrochlorid e Drug allergy (disorder) Sweats active 5 [facility] Immunizations Combined list of available immunizations from the Department of Defense and Veterans Affairs facilities. Immunization Series Date Given Administered By Site Reaction Lot Number CVX Code Drug Hl7 Interface Developer Status Comments Source TD (ADULT), 5 LF TETANUS TOXOID, PRESERVATIVE FREE, ADSORBED 2022 EHSANSAMI Luis Alberto RIGHT DELTO ID [id number] 113 complet ed [facility] COVID-19 ([facility]), MRNA, LNP-S, BIVALENT BOOSTER, PF, 30 MCG/0.3 ML DOSE 2022 300 complet ed [facility] INFLUENZA, INJECTABLE, QUADRIVALENT, PRESERVATIVE FREE 2022 150 complet ed [facility] INFLUENZA, UNSPECIFIED FORMULATION 2022 88 complet ed [facility] COVID-19 ([facility]), MRNA, LNP-S, PF, 30 MCG/0.3 ML DOSE, NORIS-SUCROSE (AGES 12+ YEARS) 3 2021 217 complet ed PFR; [id number]; 2 [facility] INFLUENZA, INJECTABLE, QUADRIVALENT, PRESERVATIVE FREE 2020 150 complet ed [facility] COVID-19 ([employer]), MRNA, LNP-S, PF, 30 MCG/0.3 ML DOSE 2 2020 208 complet ed [facility] COVID-19 ([facility]), MRNA, LNP-S, PF, 30 MCG/0.3 ML DOSE 1 2020 208 complet ed [facility] INFLUENZA, INJECTABLE, QUADRIVALENT, PRESERVATIVE FREE 2019 150 complet ed [facility] INFLUENZA, INJECTABLE, QUADRIVALENT 2018 158 complet ed [facility] INFLUENZA, INJECTABLE, QUADRIVALENT 2017 158 complet ed [facility] INFLUENZA, INJECTABLE, QUADRIVALENT, PRESERVATIVE FREE 2017 150 complet ed [facility] INFLUENZA, INJECTABLE, QUADRIVALENT, PRESERVATIVE FREE 2016 150 complet ed [facility] PNEUMOCOCCAL CONJUGATE PCV 13 2016 133 complet ed [facility] INFLUENZA, INJECTABLE, QUADRIVALENT, PRESERVATIVE FREE 2015 150 complet ed [facility] INFLUENZA, SEASONAL, INJECTABLE 2014 141 complet ed [facility] INFLUENZA, INJECTABLE, QUADRIVALENT, PRESERVATIVE FREE 2014 150 complet ed [facility] INFLUENZA, SEASONAL, INJECTABLE 2014 141 complet ed [facility] INFLUENZA, INJECTABLE, QUADRIVALENT, PRESERVATIVE FREE 2013 150 complet ed [facility] INFLUENZA, SEASONAL, INJECTABLE 2012 141 complet ed [facility] TDAP 2012 115 complet ed [facility] INFLUENZA, SEASONAL, INJECTABLE 2011 141 complet ed [facility] HEP B, ADULT 2011 43 complet ed [facility] [facility] [place] INFLUENZA, SEASONAL, INJECTABLE 2010 141 complet ed [facility] [place] PNEUMOCOCCAL POLYSACCHARID E PPV23 2009 33 complet ed [facility] [place] INFLUENZA, SEASONAL, INJECTABLE, PRESERVATIVE FREE 2009 140 complet ed [facility] [place] INFLUENZA, SEASONAL, INJECTABLE, PRESERVATIVE FREE 2008 140 complet ed [facility] [place] NOVEL INFLUENZA-H1N 1-09, ALL FORMULATIONS 2008 128 complet ed [facility] [place] INFLUENZA, SEASONAL, INJECTABLE 2007 141 complet ed [facility] [place] HEP B, ADULT 2007 43 complet ed [facility] [place] MMR 2007 03 complet ed [facility] [place] HEP B, ADULT 2007 43 complet ed [facility] [place] TDAP 2007 115 complet ed [facility] [place] INFLUENZA, SEASONAL, INJECTABLE, PRESERVATIVE FREE 2007 140 complet ed [facility] [place] TD (ADULT), 2 LF TETANUS TOXOID, PRESERVATIVE FREE, ADSORBED 2005 09 complet ed [facility] [place] TD (ADULT), 2 LF TETANUS TOXOID, PRESERVATIVE FREE, ADSORBED 2003 09 complet ed [facility] [place] TD (ADULT), 2 LF TETANUS TOXOID, PRESERVATIVE FREE, ADSORBED 2002 09 complet ed [facility] [place] INFLUENZA, UNSPECIFIED FORMULATION 2001 88 complet ed [facility] [place] Results Combined list of recent chemistry, hematology and other laboratory results from Department of Defense and Veterans Affairs, ranging from 15 months to all on record, depending upon the facility. Order Name Results Value Reference Range Date Interpretation Specimen Comments Source C.TRACHO MATIS/N. GONORRHE A DNA CHLAMYDIA TRACHOMATI S DNA [PRESENCE] IN URINE BY MICA WITH PROBE DETECTION NOT DETECTED 09/27 Specimen Type: URINE No comment entered. Ordering Provider: Nicolle SHAH Report Released Date/Time: Sep 27, 2022 03:02 PM Reporting Lab: [facility] [id number] Performing Lab: [facility] [id number] [facility] C.TRACHO MATIS/N. GONORRHE A DNA NEISSERIA GONORRHOEA E DNA [PRESENCE] IN URINE BY MICA WITH PROBE DETECTION NOT DETECTED 09/27 Specimen Type: URINE No comment entered. Ordering Provider: Nicolle SHAH Report Released Date/Time: Sep 27, 2022 03:02 PM Reporting Lab: [facility] [id number] Performing Lab: [facility] [phone] [facility] C.TRACHO MATIS/N. GONORRHE A DNA INTERPRETA TION AND REVIEW OF LABORATORY RESULTS Infectio us agent DNA is not detected by this assay 09/27 Specimen Type: URINE No comment entered. Ordering Provider: Nicolle SHAH Report Released Date/Time: Sep 27, 2022 03:02 PM Reporting Lab: [facility] [phone] Performing Lab: [facility] [phone] [facility] C.TRACHO MATIS/N. GONORROE AE,RECTA L CHLAMYDIA TRACHOMATI S RRNA [PRESENCE] IN ANAL BY MICA WITH PROBE DETECTION TNP 09/27 Specimen Type: RECTAL Comment: Specimen too short for repeat testing Cancellatio n reported to: Diya Rodas RN at 0910-03-22,TTP Test not performed. Initial testing necessitate d a repeat, but there was insufficien t sample to perform repeat. Test Performed by [facility], [employer] [place], [address] [place] [address] Perri Valdovinos M.D., Ph.D., Director of Laboratorie s , CLIA [id number] Ordering Provider: Nicolle SHAH Report Released Date/Time: Sep 27, 2022 03:02 PM Reporting Lab: [facility] [phone] Performing Lab: [address] [facility] C.TRACHO MATIS/N. GONORROE AE,RECTA L NEISSERIA GONORRHOEA E RRNA [PRESENCE] IN SPECIMEN BY PROBE TNP 09/27 Specimen Type: RECTAL Comment: Specimen too short for repeat testing [place]atio [place]: [place] [address]-03-22,TTP Test not performed. Initial testing necessitate d a repeat, but there was insufficien t sample to perform repeat. Test Performed by [facility], [employer] [place], [address] [place] [address] Perri Valdovinos M.D., Ph.D., Director of Laboratorie s , CLIA [id number] Ordering Provider: Nicolle SHAH Report Released Date/Time: Sep 27, 2022 03:02 PM Reporting Lab: [facility] [phone] Performing Lab: [address] [facility] [facility] C.TRACHO MATIS/N. GONORROE AE,THROA T CHLAMYDIA TRACHOMATI S RRNA [PRESENCE] IN SPECIMEN BY MICA WITH PROBE DETECTION Not Detected 09/27 Specimen Type: THROAT Comment: Methodology : Transcripti on Mediated Amplificati on(TMA) to detect RNA. The analytical performance characteris tics of this assay have been determined by [facility] [place], [place]. The modificatio ns have not been cleared or approved by the FDA. This assay has been validated pursuant to the CLIA regulations and is used for clinical purposes. Test Performed by [facility] [place], [address] [place] [address] Perri Valdovinos M.D., Ph.D., Director of Laboratorie s , CLIA [id number] Ordering Provider: Nicolle SHAH Report Released Date/Time: Sep 27, 2022 03:02 PM Reporting Lab: [facility] [phone] Performing Lab: [address] [facility] C.TRACHO MATIS/N. GONORROE AE,THROA T NEISSERIA GONORRHOEA E RRNA [PRESENCE] IN SPECIMEN BY PROBE Not Detected 09/27 Specimen Type: THROAT Comment: Methodology : Transcripti on Mediated Amplificati on(TMA) to detect RNA. The analytical performance characteris tics of this assay have been determined by [employer] [place], [place]. The modificatio ns have not been cleared or approved by the FDA. This assay has been validated pursuant to the CLIA regulations and is used for clinical purposes. Test Performed by [facility] [place], [address] [place] [address] Perri Valdovinos M.D., Ph.D., Director of Laboratorie s , CLIA [id number] Ordering Provider: Nicolle SHAH Report Released Date/Time: Sep 27, 2022 03:02 PM Reporting Lab: [facility] [phone] Performing Lab: [address] [facility] HIV AG/AB SCREEN HIV 1+2 AB+HIV1 P24 AG [PRESENCE] IN SERUM OR PLASMA BY IMMUNOASSA Y NEGATIVE 09/27 Specimen Type: SERUM No comment entered. Ordering Provider: Nicolle SHAH Report Released Date/Time: Sep 27, 2022 03:02 PM Reporting Lab: [facility] [phone] Performing Lab: [facility] [phone] [facility] ANTI-HEP C(EIA) HEPATITIS C VIRUS AB [PRESENCE] IN SERUM NEGATIVE 09/27 Specimen Type: SERUM No comment entered. Ordering Provider: Nicolle SHAH Report Released Date/Time: Sep 27, 2022 03:02 PM Reporting Lab: [facility] [phone] Performing Lab: [facility] [phone] [place] SYPHILIS ANTIBODY SYPHILIS SCREEN TEST STATUS CPHS NEGATIVE 09/27 Specimen Type: SERUM No comment entered. Ordering Provider: Nicolle SHAH Report Released Date/Time: Sep 27, 2022 03:02 PM Reporting Lab: [facility] [phone] Performing Lab: [facility] [address] [facility] POC CREATINI NE CREATININE [MASS/VOLU ME] IN BLOOD 0.7 0.6 - 1.3 08/14 Specimen Type: BLOOD No comment entered. Ordering Provider: [facility] Report Released Date/Time: Aug 14, 2022 06:36 PM Reporting Lab: [facility] [phone] Performing Lab: [facility] [address] [facility] EXTRA GOLD GEL TUBE EXTRA GOLD GEL TUBE RECEIVED 08/14 Specimen Type: SERUM No comment entered. Ordering Provider: [facility] Report Released Date/Time: Aug 14, 2022 06:12 PM Reporting Lab: [facility] [phone] Performing Lab: [facility] [address] [facility] LIPASE LIPASE [ENZYMATIC ACTIVITY/V OLUME] IN SERUM OR PLASMA 32 08/14 Specimen Type: PLASMA No comment entered. Ordering Provider: [facility] Report Released Date/Time: Aug 14, 2022 06:01 PM Reporting Lab: [facility] [phone] Performing Lab: [facility] [address] [facility] HCG, QUAL CHORIOGONA DOTROPIN.B ETA SUBUNIT ( TEST) [PRESENCE] IN URINE NEGATIVE 08/14 Specimen Type: URINE No comment entered. Ordering Provider: [facility] Report Released Date/Time: Aug 14, 2022 06:01 PM Reporting Lab: [facility] [address] Performing Lab: [facility] [address] [place] [facility] Vital Signs Combined list of inpatient and outpatient Vital Signs from Department of Defense and Veterans Affairs, ranging from 12 months to all on record, depending upon the facility. Vital Sign Value Date Comments Source Encounters Combined list of: 1) Encounters from Department of Veterans Affairs facilities going back up to thelast 18 months. 2) Encounters from the Department of Defense facilities going back up to 280 months. Location Location Details Encounter Type Encounter Number Reason For Visit Attending Provider ADM Date DC Date Status Disposition Source [facility] YovannyBERNA Anna(IEP Hearing Conservat ion Exam) OUTPATIENT [id number] ERICA DANG 01/09 Released w/o Limitations [facility] Y[facility]anny Clark [facility] [facility](IEP Hearing Conserv ation Exam) General Yovannykoffi Rodas [facility] [place](C-TMC Er Module) OUTPATIENT [id number] back pain LISA DARLING 01/09 Released w/o Limitations [facility] Yovanny Clark [facility](C-TM C Er Module) [facility] Yovanny Rodas [facility] [place](IEP Optometry ) OUTPATIENT [id number] KRYSTIAN MONTGOMERY 01/12 Released w/o Limitations General Yovanny Clark [facility](IEP Optomet ry) General Yovanny Clark [facility] [place](C-TMC Er Module) OUTPATIENT [id number] Upper/m iddle back pain. DUYEN GARZA 01/16 Released with Work/Duty Limitations [place]C-[place]) General [facility] Cardoso(C-TMC Er Module) OUTPATIENT [id number] NAE Garcia 02/01 Released with Work/Duty Limitations [facility] [place] [place] OUTPATIENT [id number] L ankle pain. PERRI FAITH 02/08 Released with Work/Duty Limitations [facility] [place] [facility] [place] [place] [facility]) OUTPATIENT [id number] L ankle pain. HENNA CAVAZOS 02/24 Released with Work/Duty Limitations [facility] [place] [facility]) [facility] [place] OUTPATIENT [id number] L knee pain. PERRI FAITH 03/21 Released with Work/Duty Limitations [facility] [place] [facility] [place] [place]) OUTPATIENT [id number] knee pain GILA COSME 03/30 Released with Work/Duty Limitations [facility] [place] [facility] [place] [place]) OUTPATIENT [id number] knee pain DUYEN SCHUMACHER 04/10 Released w/o Limitations [facility] [place] [facility] Y[place]anny Wood [place] [place] [facility] Remote) OUTPATIENT [id number] KALYAN SHOOK 04/11 Released with Work/Duty Limitations [facility] [place] [facility] Remote) [facility] [place] [facility] Remote) OUTPATIENT [id number] NO SHOW CHETAN STEVENS 04/13 Released w/o Limitations [facility] [place] [facility] Remote) [facility] [place] [facility] Remote) OUTPATIENT [id number] NO SHOW CHETAN STEVENS. 04/14 Released w/o Limitations General Yovanny Rod[facility] [place] [facility] Remote) General [facility]anny Rod[facility] [place] [facility] Remote) OUTPATIENT [id number] CHETAN STEVENS. 04/17 Released with Work/Duty Limitations General [facility]ovanny Rod[facility] [place] [facility] Remote) General Yovanny Rod[facility] [place] OUTPATIENT [id number] exam TROY MCKEON 04/20 Released w/o Limitations [place] [facility]anny Rod[facility] [place] [facility] Remote) OUTPATIENT [id number] NO SHOW REHABPh ysical Therapy Exercis e Session DAKOTAH SNEED 04/20 Released w/o Limitations General Yovanny Rod[facility] [place] [facility] Remote) General Yovanny Rod[facility] [place] [facility] Remote) OUTPATIENT [id number] CHETAN STEVENS. 04/21 Released with Work/Duty Limitations [place] [facility] Remote) [facility] Yovanny Rodas [facility] [place] [facility] Remote[facility] OUTPATIENT [id number] KALYAN SHOOK 04/24 Released with Work/Duty Limitations General Yovanny Rod[facility] [place] [facility] Remote) General Yovanny Rod[facility] [place] [facility] Remote) OUTPATIENT [id number] KALYAN SHOOK 04/25 Released with Work/Duty Limitations General Yovanny Rodas [facility] [place] [facility] Remote) General Yovanny Rodas [facility] [place] [facility] Remote) OUTPATIENT [id number] NO SHOW REHAB Physica l Therapy Exercis e Session DAKOTAH SNEED 04/26 Released w/o Limitations [facility] [place] [facility] Remote) [facility] [place] [facility] Remote[facility] OUTPATIENT [id number] SUKUMAR ALMODOVAR 04/27 Released with Work/Duty Limitations [facility] [place] [facility] Remote) [facility] [place] [facility] Remote) OUTPATIENT [id number] Physica l Therapy Exercis e Session DAKOTAH SNEED 04/28 Released with Work/Duty Limitations [facility] [place] [facility] Remote) [facility] [place]) OUTPATIENT [id number] NAE Dalton 05/03 Released w/o Limitations [facility] [place] [facility] [place] [facility] Remote) OUTPATIENT [id number] CHETAN STEVENS 05/03 Released with Work/Duty Limitations [facility] [place] [facility] Remote) [facility] [place] [facility] Remote) OUTPATIENT [id number] CHETAN STEVENS 05/04 Released with Work/Duty Limitations [facility] [place] [facility] Remote) [facility] [place] [facility] Remote) OUTPATIENT [id number] CHETAN STEVENS 05/05 Released with Work/Duty Limitations [facility] [place] [facility] Remote) [facility] [place] [facility] Remote) OUTPATIENT [id number] NILSA LI 05/09 Released with Work/Duty Limitations [facility] [place] [facility] Remote) [facility] [place]) OUTPATIENT [id number] NAE Garcia 05/15 Sick at Home/Quarter s [facility] [place](C-TM C Er Module) [facility] [place](Physic al Therapy [facility] Remote) OUTPATIENT [id number] KALYAN SHOOK 05/30 Released with Work/Duty Limitations [facility] [place](Phys ical Therapy [facility] Remote) [facility] Yovanny Rodas [facility] [place](Physic al Therapy [facility] Remote) OUTPATIENT [id number] Physica l Therapy Exercis e Session DAKOTAH SNEED 06/01 Released with Work/Duty Limitations [facility] [place](Phys ical Therapy [facility] Remote) [facility] Yovanny Rodas [facility] [place](Physic al Therapy [facility] Remote) OUTPATIENT [id number] Physica l Therapy Exercis e Session DAKOTAH SNEED 06/02 Released with Work/Duty Limitations [facility] [place](Phys ical Therapy [facility] Remote) [facility] Yovanny Rodas [facility] [place](Physic al Therapy [facility] Remote) OUTPATIENT [id number] CHETAN STEVENS 06/05 Released with Work/Duty Limitations [facility] Yovanny Rodas [facility] [place](Phys ical Therapy [facility] Remote) [facility] [place](Physic al Therapy [facility] Remote) OUTPATIENT [id number] CHETAN STEVENS 06/07 Released with Work/Duty Limitations [facility] [place](Phys ical Therapy [facility] Remote) [facility] Yovanny Rodas [facility] [place](Physic al Therapy [facility] Remote) OUTPATIENT [id number] Physica l Therapy Exercis e Session NILSA LI 06/09 Released with Work/Duty Limitations [facility] Yovanny Rodas [facility] [place](Phys ical Therapy [facility] Remote) [facility] Yovanny Rodas [facility] [place](Physic al Therapy [facility] Remote) OUTPATIENT [id number] CHETAN STEVENS 06/12 Released with Work/Duty Limitations [facility] [place] [facility] Remote) [facility] [place] [place] [facility] Remote) OUTPATIENT [id number] NO SHOW FOLLOW UP WITH DAKOTAH DYKES 06/13 Released w/o Limitations [facility] [place] [facility] Remote) [facility] [place] Wood [facility] [place] [facility] Remote) OUTPATIENT [id number] NILSA LI 06/14 Released w/o Limitations [facility] [place] [facility] Remote) [facility] [place]) OUTPATIENT [id number] mandi carter and PERRI Lu 06/21 Released w/o Limitations [facility] [place] [facility] [place] [place] [place] OUTPATIENT [id number] NAE Garcia 06/29 Released with Work/Duty Limitations [facility] [place] [facility] [place] [place] [place]) OUTPATIENT [id number] l-knee pain HEATHER NETTLES 07/06 Released w/o Limitations [facility] [place] [facility] [place] OUTPATIENT [id number] lt shoulde r pain/me d refill for migrain e PERRI FAITH 07/11 Released with Work/Duty Limitations [facility] [place] [facility] [place] [facility] Remote) OUTPATIENT [id number] NILSA LI 07/12 Released w/o Limitations [facility] [place] [facility] Remote) General Y[facility] Wood [facility] [place](C-TMC Er Module) OUTPATIENT [id number] pink eye BANDAR MARTÍNEZ Elsi 07/24 Released w/o Limitations [facility] Yovanny Rodas [facility] [place](C-TM C Er Module) [facility] Yovanny Rodas [facility] [place](C-TMC Er Module) OUTPATIENT [id number] URI; FEVER BLISTER S; RASH. LISA RENEE 07/28 Released w/o Limitations [facility] Yovanny Rodas [facility] [place](C-TM C Er Module) [facility]ovanny Rodas [facility] [place](Optome try) OUTPATIENT [id number] RAVEN DE LA CRUZ 08/03 Released w/o Limitations [facility] Yovanny Rodas [facility] [place](Opto metry) [facility]ovanny Rodas [facility] [place] Physical Exam) OUTPATIENT [id number] physica l GILA COSME 08/03 Released w/o Limitations [facility] Yovanny Rodas [facility] [place] Physica l Exam) [facility] Yovanny Rodas [facility] [place]C-[place] Er Module[place] OUTPATIENT [id number] sore throat and cough JONNIE HANNAH 08/05 Released w/o Limitations [facility] [place] [facility] Rod[facility] [place] OUTPATIENT [id number] SEVERE HEADACH E; FEVER. LISA RENEE 08/21 Released w/o Limitations [facility] [place] ALEXANDR GIVENS Outpatient Encounter [id number] 01/03 ALEXANDR GIVENS [facility] Outpatient Encounter [id number] SA RA Shahab MARTIN 02/24 [facility] Outpatient Encounter [id number] NALLELY MARTIN SA 04/09 [place] [facility] Outpatient Encounter [id number] 04/29 [place] [facility] [place] [facility] Outpatient Encounter [id number] 04/29 [place] [facility] [place] [facility] Outpatient Encounter [id number] NALLELY MARTIN SA 05/23 [place] [facility] [place] [facility] Outpatient Encounter [id number] EDGAR GREY 05/30 [facility] [place] [facility] EMERGENCY DEPT VISIT LOW MDM [id number] Diagnos is: ICD-10- CM L03.90 Celluli tis, unspeci fied
JAYNE SENIOR 06/13 [facility] [place] [facility] Outpatient Encounter [id number] 06/14 [facility] [place] [facility] Outpatient Encounter [id number] 06/14 [place] [facility] [place] [facility] Outpatient Encounter [id number] 06/16 [facility] [place] [facility] Outpatient Encounter [id number] 06/21 [facility] [place] [facility] [facility] Encounter [id number] EDGAR GREY 06/21 [facility] [place] [facility] Outpatient Encounter [id number] VIANEY PETERS 06/22 [place] [facility] [place] [facility] Outpatient Encounter [id number] 06/28 [facility]LEX[facility]DR [facility] OFFICE O/P EST HI 40-54 MIN [id number] Diagnos is: ICD-10- CM F25.9 Schizoa ffectiv e disorde r, unspeci fied
GRANDIA,CO NNIE M 04/18 /2023 ALEXANDR URIOSTEGUI [facility] [place] [facility] Outpatient Encounter [id number] Diagnos is: ICD-10- CM F60.3 Borderl ine persona lity disorde r
BRYON GRAY L 07/12 [facility] [place] [facility] Outpatient Encounter [id number] TESSA STOKES ONDA A 07/22 [facility] [place] [facility] Outpatient Encounter [id number] 07/22 [place] [facility] [place] [facility] OFFICE O/P EST MOD 30-39 MIN [id number] Diagnos is: ICD-10- CM L98.8 Oth disrd of the skin and subcuta neous tissue< br/> ANNA KLEIN 08/02 [place] [facility] [place] [facility] Outpatient Encounter [id number] 08/04 [facility] [place] [facility] OFFICE O/P EST HI 40-54 MIN [id number] Diagnos is: ICD-10- CM F42.4 Excoria tion (skin-p icking) disorde r
BRYON SCANLON CA C 08/04 [place] [facility] [place] [facility] Outpatient Encounter [id number] 08/05 [place] [facility] [place] [facility] Outpatient Encounter [id number] 08/10 [place] [facility] [place] [facility] Outpatient Encounter [id number] BRYON GRAY 08/12 [place] [facility] [place] [facility] Outpatient Encounter [id number] SONIA NAVARRO V 08/12 [facility] [place] [facility] EMERGENCY DEPT VISIT MOD MDM [id number] Diagnos is: ICD-10- CM 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
Divina LÓPEZ 08/12 [facility] OFFICE O/P EST LOW 20-29 MIN [id number] Diagnos is: ICD-10- CM F60.3 Borderl ine persona lity disorde r
Rhett THORNTON 08/12 [facility] [place]GENCY [place] MDM [id number] Diagnos is: ICD-10- CM J18.9 Pneumon ia, unspeci fied organis m
CONRADO GRECO 08/14 [facility] OFF/OP CONSLTJ NEW/EST HI 55 [id number] Diagnos is: ICD-10- CM F60.3 Borderl ine persona lity disorde r
JOHNNIE DYER R 08/14 [facility] Outpatient Encounter [id number] INES HANNAH 08/15 [facility] Outpatient Encounter [id number] 08/15 [facility] HC PRO PHONE CALL 11-20 MIN [id number] Diagnos is: ICD-10- CM F41.9 Anxiety disorde r, unspeci fied
LOUIS HERNANDEZ 08/16 [facility] Outpatient Encounter [id number] 08/18 [facility] Outpatient Encounter [id number] EDUARDO TAN 08/25 [facility] Outpatient Encounter [id number] LOUIS HERNANDEZ 08/30 [place] [facility] [place] [facility] Outpatient Encounter [id number] 08/31 [place] [facility] [place] [facility] HC PRO PHONE CALL 11-20 MIN [id number] Diagnos is: ICD-10- CM F41.9 Anxiety disorde r, unspeci fied
LOUIS HERNANDEZ 09/06 [facility] EMERGENCY DEPT VISIT LOW MDM [id number] Diagnos is: ICD-10- CM L03.90 Celluli tis, unspeci fied
RENA DALY 09/06 [facility] Outpatient Encounter [id number] 09/06 [facility] [place] [facility] Outpatient Encounter [id number] EDGAR GREY 09/12 [facility] Outpatient Encounter [id number] INES HANNAH 09/14 [facility] Outpatient Encounter [id number] LOUIS HERNANDEZ 09/20 [facility] OFFICE O/P NEW MOD 45-59 MIN [id number] Diagnos is: ICD-10- CM F41.9 Anxiety disorde r, unspeci fied
JORGITO SHAH 09/27 [facility] [place] [facility] Outpatient Encounter [id number] 09/28 [facility] EMERGENCY DEPT VISIT LOW MDM [id number] Diagnos is: ICD-10- CM L03.90 Celluli tis, unspeci fied
RENA DALY Z 10/04 [facility] [place] [facility] Outpatient Encounter [id number] EDGAR GREY 10/31 [facility] [place] [facility] Outpatient Encounter [id number] EDGAR GREY 11/01 [place] [facility] [place] [facility] Outpatient Encounter [id number] 11/09 [facility] [place] [facility] Outpatient Encounter [id number] EDGAR GREY 11/28 [place] [facility] [place] [facility] Outpatient Encounter [id number] EDGAR GREY 12/05 [facility] [place] [facility] Outpatient Encounter [id number] EDGAR GREY 12/16 [facility] [place] [facility] Outpatient Encounter [id number] 01/19 [facility] [place] [facility] Outpatient Encounter [id number] Luis Alberto COOK 02/27 [facility] [place] [facility] Outpatient Encounter [id number] Luis Alberto COOK 03/21 [facility] [place] [facility] Outpatient Encounter [id number] IBIS MARTIN 04/03 [facility] [place] [facility] EMERGENCY DEPT VISIT LOW MDM [id number] Diagnos is: ICD-10- CM R21 Rash and other nonspec ific skin eruptio n
DEONNA ROLLINS 04/03 [facility] [place] [facility] Outpatient Encounter [id number] 04/10 [facility] [place] [facility] Outpatient Encounter [id number] MATHIEU BAINS 04/10 [facility] [place] [facility] Outpatient Encounter [id number] SUZI BETHEA 05/29 [place] [facility] Procedures Combined list of: 1) Procedures from Department of Veterans Affairs facilities going back up to thelast 18 months, not all ID non-surgical procedures are included; 2) All procedures from the Department of Defense facilities. Procedure Procedure Type Code Date Perfomer Comments Sourrk e Psychotherapy Individual Approx 30 Min W/ Medical Evaluation & Management Psychotherapy Individual Approx 30 Min W/ Medical Evaluation & Management 21129 08/01/19 07 NASIM FOSTER Patient Training And Self-Care Skills Patient Training And Self-Care Skills 96298 07/25/19 07 BANDAR MARTÍNEZ [facility] Psychotherapy Individual Approx 30 Min W/ Medical Evaluation & Management Psychotherapy Individual Approx 30 Min W/ Medical Evaluation & Management 14872 07/25/19 07 VASQUEZ MARCUS [facility] A isted Exercises For ROM Assisted Exercises For ROM 43406 07/13/19 07 NILSA LI Phys Therapy Education Self Care Training - Per 15 Minutes Phys Therapy Education Self Care Training - Per 15 Minutes 31870 07/13/19 07 NILSA LI Physical Therapy Service Evaluation Physical Therapy Service Evaluation 05475 07/13/19 07 NILSA LI Physician Supervised Injection Intramuscular Physician Supervised Injection Intramuscular 87177 07/12/19 07 PERRI FAITH Patient Training And Self-Care Skills Patient Training And Self-Care Skills 29063 07/12/19 07 PERRI FAITH Patient Training And Self-Care Skills Patient Training And Self-Care Skills 14318 07/07/19 07 HEATHER NETTLES [facility] Psychotherapy Individual Approx 30 Min W/ Medical Evaluation & Management Psychotherapy Individual Approx 30 Min W/ Medical Evaluation & Management 74284 06/29/19 07 NASIM FOSTER Physician Supervised Injection Intramuscular Physician Supervised Injection Intramuscular 40763 06/22/19 07 PERRI FAITH Patient Training And Self-Care Skills Patient Training And Self-Care Skills 23562 06/22/19 07 PERRI FAITH Phys Therapy Education Self Care Training - Per 15 Minutes Phys Therapy Education Self Care Training - Per 15 Minutes 09993 06/15/19 07 NILSA LI [facility] Physical Therapy Service Re-Evaluation Physical Therapy Service Re-Evaluation 15968 06/15/19 07 NILSA LI [facility] Physical Therapy: ___ Se ion Segments, 15 Minutes Each Physical Therapy: ___ Session Segments, 15 Minutes Each 89196 06/13/19 07 CHETAN STEVENS [facility] Modalities Cryotherapy Cold Packs Modalities Cryotherapy Cold Packs 95196 06/13/19 07 CHETAN STEVENS [facility] Modalities Cryotherapy Cold Packs Modalities Cryotherapy Cold Packs 57264 06/10/19 07 NILSA LI [facility] Physical Therapy: ___ Se ion Segments, 15 Minutes Each Physical Therapy: ___ Session Segments, 15 Minutes Each 92355 06/10/19 07 NILSA IL Taping Knee Taping Knee 11422 06/08/19 07 CHETAN STEVENS Physical Therapy: ___ Se ion Segments, 15 Minutes Each Physical Therapy: ___ Session Segments, 15 Minutes Each 53307 06/08/19 07 CHETAN STEVENS Modalities Cryotherapy Cold Packs Modalities Cryotherapy Cold Packs 72485 06/08/19 07 CHETAN STEVENS [facility] Physical Therapy: ___ Se ion Segments, 15 Minutes Each Physical Therapy: ___ Session Segments, 15 Minutes Each 24458 06/06/19 07 CHETAN STEVENS [facility] Modalities Cryotherapy Cold Packs Modalities Cryotherapy Cold Packs 08308 06/06/19 07 CHETAN STEVENS [facility] Modalities Cryotherapy Cold Packs Modalities Cryotherapy Cold Packs 91401 06/03/19 07 DAKOTAH SNEED [facility] Physical Therapy: ___ Se ion Segments, 15 Minutes Each Physical Therapy: ___ Session Segments, 15 Minutes Each 32236 06/03[facility] Cold Packs Modalities Cryotherapy Cold Packs 44324 06/02/19 07 [facility] Physical Therapy: ___ Se ion Segments, 15 Minutes Each Physical Therapy: ___ Session Segments, 15 Minutes Each 28419 06/02/19 07 [facility] Psychotherapy Individual Approx 30 Min W/ Medical Evaluation & Management Psychotherapy Individual Approx 30 Min W/ Medical Evaluation & Management 57243 06/01/19 07 NASIM FOSTER Phys Therapy Education Self Care Training - Per 15 Minutes Phys Therapy Education Self Care Training - Per 15 Minutes 92216 05/31/19 07 KALYAN SHOOK Taping Knee Taping Knee 84072 05/31/19 07 KALYAN SHOOK Physical Therapy Service Re-Evaluation Physical Therapy Service Re-Evaluation 09986 05/31/19 07 KALYAN SHOOK Psychotherapy Individual Approx 30 Min W/ Medical Evaluation & Management Psychotherapy Individual Approx 30 Min W/ Medical Evaluation & Management 97654 05/17/19 07 NASIM FOSTER Phys Therapy Education Self Care Training - Per 15 Minutes Phys Therapy Education Self Care Training - Per 15 Minutes 50094 05/09/19 07 NILSA LI Physical Therapy Service Re-Evaluation Physical Therapy Service Re-Evaluation 63468 05/09/19 07 NILSA LI Physical Therapy: ___ Se ion Segments, 15 Minutes Each Physical Therapy: ___ Session Segments, 15 Minutes Each 20499 05/05/19 07 CHETAN STEVENS Modalities Cryotherapy Cold Packs Modalities Cryotherapy Cold Packs 57471 05/05/19 07 CHETAN STEVENS Physical Therapy: ___ Se ion Segments, 15 Minutes Each Physical Therapy: ___ Session Segments, 15 Minutes Each 33063 05/04/19 07 CHETAN STEVENS Modalities Cryotherapy Cold Packs Modalities Cryotherapy Cold Packs 38292 05/04/19 07 CHETAN STEVENS Psychotherapy Individual Approx 30 Min W/ Medical Evaluation & Management Psychotherapy Individual Approx 30 Min W/ Medical Evaluation & Management 98961 05/02/19 07 NASIM FOSTER Modalities Cryotherapy Cold Packs Modalities Cryotherapy Cold Packs 95950 04/28/19 07 DAKOTAH SNEED [facility] Physical Therapy: ___ Se ion Segments, 15 Minutes Each Physical Therapy: ___ Session Segments, 15 Minutes Each 02625 04/28/19 07 DAKOTAH SNEED [facility] Modalities Cryotherapy Cold Packs Modalities Cryotherapy Cold Packs 89777 04/27/19 07 SUKUMAR ROMERO [facility] Physical Therapy: ___ Se ion Segments, 15 Minutes Each Physical Therapy: ___ Session Segments, 15 Minutes Each 46013 04/27/19 07 SUKUMAR ROMERO A isted Exercises For ROM Assisted Exercises For ROM 67949 04/25/19 07 KALYAN SHOOK Physical Therapy Service Re-Evaluation Physical Therapy Service Re-Evaluation 55337 04/25/19 07 KALYAN SHOOK Modalities Electrical Stimulation Modalities Electrical Stimulation 29397 04/24/19 07 KALYAN SHOOK Physical Therapy: ___ Se ion Segments, 15 Minutes Each Physical Therapy: ___ Session Segments, 15 Minutes Each 61666 04/24/19 07 KALYAN SHOOK Modalities Cryotherapy Cold Packs Modalities Cryotherapy Cold Packs 78203 04/24/19 07 KALYAN SHOOK Modalities Electrical Stimulation Modalities Electrical Stimulation 34380 04/21/19 07 CHETAN STEVENS Modalities Cryotherapy Cold Packs Modalities Cryotherapy Cold Packs 78041 04/21/19 07 CHETAN STEVENS Physical Therapy: ___ Se ion Segments, 15 Minutes Each Physical Therapy: ___ Session Segments, 15 Minutes Each 02464 04/21/19 07 CHETAN STEVENS Psychotherapy Individual Approx 30 Min W/ Medical Evaluation & Management Psychotherapy Individual Approx 30 Min W/ Medical Evaluation & Management 42249 04/21/19 07 NASIM FOSTER Spectacles Services Fitting Monofocal Except For Aphakia Spectacles Services Fitting Monofocal Except For Aphakia 76052 04/20/19 07 TROY MCKEON Determination Of Refractive State Determination Of Refractive State 54807 04/20/19 07 TROY MCKEON Visual Real Test Limited Examination Visual Real Test Limited Examination 21626 04/20/19 07 TROY MCKEON Ophthalmological New Patient Start Comprehensive Care Ophthalmological New Patient Start Comprehensive Care 26901 04/20/19 07 TROY MCKEON Psychotherapy Individual Approx 30 Min W/ Medical Evaluation & Management Psychotherapy Individual Approx 30 Min W/ Medical Evaluation & Management 40920 04/19/19 07 NASIM FOSTER Modalities Electrical Stimulation Modalities Electrical Stimulation 75565 04/17/19 07 CHETAN STEVENS Physical Therapy: ___ Se ion Segments, 15 Minutes Each Physical Therapy: ___ Session Segments, 15 Minutes Each 23232 04/17/19 07 CHETAN STEVENS Modalities Cryotherapy Cold Packs Modalities Cryotherapy Cold Packs 52506 04/17/19 07 CHETAN STEVENS [facility] Modalities Cryotherapy Cold Packs Modalities Cryotherapy Cold Packs 99824 04/11/19 07 KALYAN SHOOK Phys Therapy Education Self Care Training - Per 15 Minutes Phys Therapy Education Self Care Training - Per 15 Minutes 90493 04/11/19 07 KALYAN SHOOK A isted Exercises For ROM Assisted Exercises For ROM 22516 04/11/19 07 KALYAN SHOOK Physical Therapy Service Evaluation Physical Therapy Service Evaluation 49375 04/11/19 07 KALYAN SHOOK Patient Training And Self-Care Skills Patient Training And Self-Care Skills 27201 03/30/19 07 GILA COSME [facility] Patient Training And Self-Care Skills Patient Training And Self-Care Skills 11330 03/21/19 07 PERRI FAITH [facility] Psychotherapy Individual Approx 30 Min W/ Medical Evaluation & Management Psychotherapy Individual Approx 30 Min W/ Medical Evaluation & Management 12721 03/17/19 07 NASIM FOSTER [facility] Ankle foot orthosis, multiligamentous ankle support, prefabricated, [id number] 02/25/20 06 HENNA CAVAZOS [facility] Physical Therapy Education Orthotics Training Initial 15 Min 02/25/20 06 HENNA CAVAZOS [facility] Patient Training And Self-Care Skills Patient Training And Self-Care Skills 56630 02/09/20 06 PERRI FAITH [facility] Psychiatric Diagnostic Evaluation Comprehensive Examination Psychiatric Diagnostic Evaluation Comprehensive Examination 09099 01/27/20 06 RICCO DIAZ [facility] Patient Training And Self-Care Skills Patient Training And Self-Care Skills 50649 01/17/20 06 DUYEN GARZA [facility] Phys Therapy Education Self Care Training - Per 15 Minutes Phys Therapy Education Self Care Training - Per 15 Minutes 66409 01/17/20 06 DUYEN GARZA [facility] Screening Test Of Visual Acuity, Quantitative, Bilateral Screening Test Of Visual Acuity, Quantitative, Bilateral 84929 01/13/20 06 HENNA MARTIN [facility] Spectacles Services Fitting Monofocal Except For Aphakia Spectacles Services Fitting Monofocal Except For Aphakia 32975 01/13/20 06 HENNA MARTIN Determination Of Refractive State Determination Of Refractive State 85990 01/13/20 06 HENNA MARTIN [facility] Ear mold/insert, not disposable, any type 01/10/20 06 ERICA DANG Audiometry Group Testing Audiometry Group Testing 67343 01/10/20 06 ERICA DANG Physician Supervised Group Educational Services 01/10/20 06 ERICA DANG Social History Combined list of available smoking, tobacco, and other social 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 Social History Type Response Date Comment Sourc e Tobacco smoking status MEIS VA-TOBACCO USER EVERY DAY 06/28/2022 ALEXANDR [facility]OST[facility] History of tobacco use VA-TOBACCO USE WI 30 MIN OF WAKEUP 06/28/2022 ALEXANDR [facility] CB History of tobacco use VA-TOBACCO USER E VERY DAY 03/08/2021 ALEX[facility]DR [facility] History of tobacco use VA-TOBACCO USER E VERY DAY 01/27/2020 [facility] History of tobacco use FORMER TOBACCO US E >1Y <7Y 06/17/2015 [facility] History of tobacco use FORMER TOBACCO USE <1Y 07/30/2014 [facility] This section is an empty social history section. [facility]
--- OUTSIDE RECORDS SUMMARY | 2023-07-06 21:08 | XMS_ITS | Encounter Summary ---
Author Name [employer] Organization [facility] of [facility] Address [address] [place] [id number] Support Name Relationship Address Phone DIAZ VENCES Next of Kin [address] KAYLA BOND [phone] DIAZ VENCES Emergency Contact [address] [address]. KAYLA BOND [phone] Insurance Providers: All historical and current Section [...] Name Patient's Relationship to Policy [facility] MEDICARE [facility] ([place]) Jan 12, 2016 [id number] [phone] SONIA VENCES PATIENT [employer] [facility] ([place] MEDICARE [facility] ([place] Mar 13, 2020 [id number] SONIA VENCESIFER PATIENT [employer] [facility] ([place]) MEDICARE ADVANTAGE [facility] ([place] Mar 13, 2020 [id number] [phone] RU,SONIA CHARLESIFER PATIENT [employer] [facility] ([place] MEDICARE [facility] ([place] Mar 13, 2020 [id number] RU,SONIA CHARLESIFER PATIENT [employer] [facility] ([place] MEDICARE [facility] ([place] Mar 13, 2020 [id number] SONIA VENCES PATIENT [facility] ([place] MEDICARE ADVANTAGE MEDIC ARE NATHEN BRADLEY Mar 13, 2019 [id number] SONIA VENCES PATIENT Selected Encounter This section includes the [facility] at [facility] for [facility]counter. Date/Time Encounter Type Encounter Description Reason Pro vider Source IHE Encounter Template Text not used by [facility]
--- OUTSIDE RECORDS SUMMARY | 2023-07-06 21:09 | XMS_ITS | Encounter Summary ---
Author Name [employer] [facility] [employer] Organization [facility] [employer] Address [address] [place] [address] Support Name Relationship Address Phone RUDIAZ Next of Kin [phone] [address] KAYLA BOND [phone] RU DIAZ Emergency Contact [address] [address] POL[address] KAYLA BOND [phone] Insurance Providers: All historical and current Section [...] Patient's Relationship to Policy [facility] ([facility]) MEDICARE ADVANTAGE [employer] ([facility]) Jan 12, 2016 [id number] [phone] SONIA VENCESIFER PATIENT [employer] [facility] ([facility]) MEDICARE ADVANTAGE [employer] ([facility]) Mar 13, 2020 [id number] SONIA VENCESIE PATIENT [employer] [facility] ([facility]) MEDICARE [facility] ([facility]) Mar 13, 2020 [id number] [phone] RU,SONIA NNIFER PATIENT [employer] [facility] ([facility]) MEDICARE ADVANTAGE [employer] ([facility]) Mar 13, 2020 [id number] [phone] RU,SONIA NNIFER PATIENT [employer] [facility] (R) MEDICARE ADVANTAGE [employer] ([facility]) Mar 13, 2020 [id number] RU,SONIA NNIFER PATIENT [facility] ([facility]) MEDICARE ADVANTAGE MEDIC MARY ELLEN BRADLEY Mar 13, 2019 [id number] SONIA VENCES PATIENT Selected Encounter This section includes the information on record at ID for the Encounter. Date/Time Encounter Type Encounter Description Reason Pro vider Source August 04, 2022 10:00 AM Outpatient Encounter PRIMARY CARE/MEDICINE IHE Encounter Template Text not used by ID Plan of Treatment: Future Appointments (+ 6 months) and Future Tests (+/- 45 days) The Plan of Treatment section includes future care activities for the patient from all ID treatmentfacilities. This section includes future appointments and future orders which are active, pending or scheduled. Future Appointments This section includes appointments that were scheduled to occur 6 months from the date of the Encounter, up to a maximum of 20 appointments. The data comes from all ID treatment facilities. Appointment Date/Time Appointment Type Appointme nt Facility Name Aug 12, 2022 08:25 PM AMBULATORY - [facility]ICINE [facility] Aug 14, 2022 05:21 PM AMBULATORY - MEDICINE [facility] Aug 18, 2022 09:00 AM AM[facility]UL[facility]ORY - NONE [facility] Aug 25, 2022 01:00 PM AMBULATORY - SURGERY [facility] Aug 31, 2022 09:00 AM AMBULATORY - MEDICINE [facility] Sep 01, 2022 06:00 PM AMB[facility]ORY - NONE [facility] Sep 02, 2022 10:20 AM AMBUL[facility]ORY - SURGERY [facility] Sep 06, 2022 03:32 PM AMBULATORY - MEDICINE [facility] Sep 12, 2022 02:59 PM [facility]ORY - NONE [facility] Sep 27, 2022 02:00 PM AMBULATORY - MEDICINE [facility] Sep 27, 2022 03:45 PM AMBULATORY - NONE [facility] Oct 04, 2022 06:29 PM AMBULATORY - MEDICINE [facility] Oct 12, 2022 06:00 PM AMB[facility]ORY - NONE [facility] Oct 31, 2022 12:09 PM [facility]ORY - NONE [facility] Nov 01, 2022 03:11 PM [facility] NONE [facility] Nov 09, 2022 03:30 PM [place] [facility] Nov 22, 2022 02:00 PM [facility] NONE [facility] Nov 28, 2022 02:21 [facility] Dec 05, 2022 12:42 PM [facility] Dec 16, 2022 05:58 PM [facility] Lab Results: +/- 30 days of the encounter This section includes the Chemistry and Hematology Lab Results [facility] with [facility] for the [facility]. Radiology Reports and Pathology Reports are provided separately, in subsequent sections. Lab Results This section contains the Chemistry/Hematology Results that were resulted 30 days before or 30 daysafter the date of the Encounter. Date/Time Source Result Type Result - Unit Interpretation Reference Range Comment Aug 14, 2022 06:34 PM [facility] POC CREATININE Specimen Type: BLOOD No comment entered. Ordering Provider: CHARLIE GRECO Report Released Date/Time: Aug 14, 2022 06:36 PM Reporting Lab: [facility] [id number] Performing Lab: [facility] [id number] POC CREATININE 0.7 0.6-1.3 Aug 14, 2022 06:12 PM [facility] EXTRA GOLD GEL TUBE Specimen Type: SERUM No comment entered. Ordering Provider: CHARLIE GRECO Report Released Date/Time: Aug 14, 2022 06:12 PM Reporting Lab: [facility] [id number] Performing Lab: [facility] [address] EXTRA GOLD GEL TUBE RECEIVED Aug 14, 2022 06:12 PM [facility] LIPASE Specimen Type: PLASMA No comment entered. Ordering Provider: CHARLIE GRECO Report Released Date/Time: Aug 14, 2022 06:01 PM Reporting Lab: [facility] [id number] Performing Lab: [facility] [address] LIPASE 32 See_Commen t Aug 14, 2022 06:12 PM [facility] HCG, QUAL Specimen Type: URINE No comment entered. Ordering Provider: CHARLIE GRECO Report Released Date/Time: Aug 14, 2022 06:01 PM Reporting Lab: [facility] [phone] Performing Lab: [facility] [address] HCG, QUAL NEGATIVE See_Commen t Aug 14, 2022 06:12 PM [facility] COMPREHENSIVE METABOLIC PANEL+MG Specimen Type: PLASMA No comment entered. Ordering Provider: CHARLIE GRECO Report Released Date/Time: Aug 14, 2022 06:01 PM Reporting Lab: [facility] [address] Performing Lab: [facility] [address] CREATININE 0.6 0.5-1.0 UREA NITROGEN 13 7-20 [...] See_Commen t Aug 14, 2022 06:12 PM [facility] CBC & DIFF Specimen Type: BLOOD Comment: Automated Differential Performed Ordering Provider: CHARLIE GRECO Report Released Date/Time: Aug 14, 2022 06:01 PM Reporting Lab: [facility] [phone] Performing Lab: [facility] [address] WBC 18.70 H 4.0-11.0 RBC 5.41 H [...] EOS 0.24 0-0.5 ABS BASO 0.10 0-0.2 IG(META,MYELO,ME O) 0.4 ABS IMMATURE GRAN 0.08 0-0.1 Aug 14, 2022 06:12 PM [facility] URINALYSIS Specimen Type: URINE No comment entered. Ordering Provider: KAILEE AZAR Report Released Date/Time: Aug 14, 2022 06:23 PM Reporting Lab: [facility] [address] Performing Lab: [facility] [id number] URINE COLOR YELLOW SPECIFIC GRAVITY 1.028 1.0 [...] See_Commen t Aug 12, 2022 09:00 PM [facility] DRUG SCREEN PANEL,URINE Specimen Type: URINE Comment: Presumptive Positive by screen, results not confirmed. Ordering Provider: BERKLEY LÓPEZ Report Released Date/Time: Aug 12, 2022 08:52 PM Reporting Lab: [facility] [phone] Performing Lab: [facility] [phone] BARBITURATES POSITIVE H See_Com men t AMPHETAMINES [...] Negative See_Commen t FENTANYL Negative See_Commen t Vital Signs: All taken on the encounter date This section contains inpatient and outpatient Vital Signs collected on the date of the Encounter. Date/Time Temperature Pulse Blood Pressure Respiratory Rate SP02 Pain Height Weight Body Mass Index Source August 04, 2022 10:23 AM 95.8 F 74 /min 116/74 mm[Hg] 16 /min 98 % 4 61.5 in 147 lb 27 [facility] Social History: Smoking Status (Most current) and Tobacco Use (All prior to encounter date) This section includes the most current, and the historical, smoking and tobacco- related health factors from the ID facility where the Encounter took place. Current Smoking Status This section includes the most current smoking, or tobacco-related health factor, from the ID facility where the Encounter took place. Date/Time Current Smoking Status Comment Facil ity Jun 17, 2015 07:02 AM FORMER TOBACCO USE >1Y <7Y [facility] Tobacco Use History This section includes a history of the smoking, or tobacco-related health factors, that were collected on or before the date of the Encounter. The data comes from the ID facility where the Encounter took place. Date/Time Smoking Status/Tobacco Use Comment F acility July 30, 2014 09:31 AM FORMER TOBACCO USE <1Y [facility] Radiology Reports: +/- 30 days of the [...] the Encounter. The data comes from all ID treatment facilities. Date/Time Radiology Report Provider Source Aug 14, 2022 06:[address] (AP) ABDOMEN/PELVIS (P): APPLE VENCES [id number] F Exm Date: AUG 14, 2022@18:22 Req Phys: CHARLIE GRECO Loc: [facility] EMERGENCY DEPT WALK-IN (Re Img Loc: CT IMAGING Service: Unknown Screen: Patient answered no (Case [id number] COMPLETE) CT (AP) ABDOMEN/PELVIS W CONTRAST(CT Detailed) CPT:52591 Contrast Media : Non-ionic Iodinated Reason for Study: abdominal pain, elevated WBC Clinical History: IS NOT under investigation for COVID-19 or [...] COMMENTS AVAILABLE...Refer to Interim Lab Report. Allergies: ([place] only) TETRACYCLINE (July 30, 2014) VENLAFAXINE (July 30, 2014) OXYCODONE (July 30, 2014) PREDNISONE (July 30, 2014) QUETIAPINE (July 30, 2014) TRAMADOL (July 30, 2014) TRAZODONE (July 30, 2014) To see allergies from all ID locations click Reports tab>Remote Data>All Available Sites>Clinical Reports>Allergies. Report Status: Verified Date Reported: AUG 14, 2022 Date Verified: AUG 14, 2022 Supervising Film Or Videotape Editor E-Sig: Report: EXAMINATION: CT (AP) ABDOMEN/PELVIS W CONTRAST [PRINTSET] Clinical History: abdominal pain, elevated WBC. Comparison: No priors available Technique: Axial CT scanning of the abdomen and pelvis was performed from the lung bases through the symphysis pubis without administration of oral and during administration of intravenous contrast. The study was protocoled and supervised at the local ID facility. 777 images were subsequently received by the ID [facility] (NTP) for interpretation. Total [...] as described READING PHYSICIAN: Julien Mena MD -[id number] 08/14/2022 21:03 EDT [facility] [employer] [phone] (For Medical Practitioner Use Only) Attention Patients / Veterans: If you have questions or concerns about these test results, please contact your ordering provider or primary care team. Primary Interpreting Staff: RADIOLOGY,OUTSIDE SERVICE, Staff Physician / RADIOLOGY,OUTSIDE SERVICE [facility] Pathology Reports: +/- 30 days of the [...] the Encounter. The data comes from all [facility] facilities. Date/Time Pathology Report Provider Source Aug 14, 2022 08:24 PM LR MICROBIOLOGY RE PORT: Reporting Lab: [facility] [CLIA# [id number]] [place] [address] Accession [UID]: [id number] [[id number]] Received: Aug 14, 2022@20:24 Collection sample: URINE Collection date: Aug 14, 2022 20:24 Provider: CHARLIE GRECO Comment on specimen: RECEIVED IN STERILE CUP Test(s) ordered: CULTURE & SUSCEPTIBILITY...... completed: Aug 16, 2022 * BACTERIOLOGY FINAL REPORT => Aug 16, 2022 12:40 TECH CODE: [id number] CULTURE RESULTS: 1. SMALL, AEROBIC GRAM POSITIVE RODS - Quantity: >100,000 Comment: No susceptibility testing performed. 2. LESS THAN 10,000 OTHER ORGANISM Bacteriology Remark(s): THIS REPORT IS FINAL =--=--=--=--=--=--=--=--=--=--=--=- -=--=--=--=--=--=--=--=--=--=--=--= --=--=-- Performing Laboratory: Bacteriology Report Performed By: [facility] [CLIA# [id number]] [place] [address] [facility] August 02, 2022 04:00 PM LR MICROBIOLOGY RE PORT: Reporting Lab: [facility] [CLIA# [id number]] [place] [address] Accession [UID]: [id number] [[id number]] Received: August 02, 2022@16:20 Collection sample: WOUND Collection date: August 02, 2022 16:00 Provider: ROBBY ABBOTT Comment on specimen: SCALP WOUND, SWAB RECEIVED Test(s) ordered: GRAM STAIN.................... completed: August 02, 2022 17:17 CULTURE & SUSCEPTIBILITY...... completed: August 04, 2022 * BACTERIOLOGY FINAL REPORT => August 04, 2022 12:52 TECH CODE: [id number] GRAM STAIN: DIRECT SMEAR of specimen before culturing shows: NO PMNS SEEN 1+ EPITHELIAL CELLS NO ORGANISMS SEEN CULTURE PENDING CULTURE RESULTS: STAPHYLOCOCCUS EPIDERMIDIS - Quantity: 2+ Comment: No susceptibility testing performed. Bacteriology Remark(s): THIS REPORT IS FINAL =--=--=--=--=--=--=--=--=--=--=--=- -=--=--=--=--=--=--=--=--=--=--=--= --=--=-- Performing Laboratory: Bacteriology Report Performed By: [facility] [CLIA# [id number]] [place] [address] [facility] Encounter Notes: All associated encounter notes This section contains the clinical notes associated to the Encounter. Date/Time Encounter Note(s) Provider Source August 04, 2022 08:59 AM REPORT OF CONTACT: LOCAL TITLE: APPOINTMENT SCHEDULING NOTE STANDARD TITLE: REPORT OF CONTACT DATE OF NOTE: AUGUST 04, 2022@08:59 ENTRY DATE: AUGUST 04, 2022@08:59:53 AUTHOR: VIVIENNE LINO EXP COSIGNER: URGENCY: STATUS: COMPLETED Attempted to schedule Cancellation Clinic cancellation Contact attempt made to 1st attempt Telephone If [place] calls back, schedule appt for: SHARI PACT FIG 4D SWETHA FROM ALEXANDR GIVENS /jose armando/ VIVIENNE LINO [employer] Signed: 08/04/2022 09:03 VIVIENNE LINO [facility]
--- OUTSIDE RECORDS SUMMARY | 2023-07-06 21:09 | XMS_ITS | Encounter Summary ---
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 PHENCYCLIDINE: Negative ETHANOL, URINE: Negative DRUG SCREEN CREATININE: 113.7 OXYCODONE URINE: Negative BUPRENORPHRINE SCREEN: Negative TRAMADOL SCREEN: Negative FENTANYL: Negative Active Outpatient Medications (excluding Supplies): Outpatient Medications Status 1) ALBUTEROL 90MCG (CFC-F) [...] ALLERGIES 7) FLUOXETINE HCL 20MG CAP TAKE THREE CAPSULES BY MOUTH PENDING EVERY DAY 8) FLUTICAS 100/SALMETEROL 50 INHL [...] DIZZINESS -MAY BE CHEWED OR SWALLOWED 14) MELATONIN 3MG CAP/TAB TAKE 3 TAB (9 MG) 3MG BY MOUTH ACTIVE AT BEDTIME FOR SLEEP FOR SLEEP 15) MONTELUKAST NA 10MG TAB TAKE ONE TABLET BY MOUTH ACTIVE EVERY EVENING FOR ASTHMA 16) SULFAMETHOXAZOLE 800/TRIMETH 160MG TAB TAKE 1 TABLET ACTIVE BY MOUTH TWICE A DAY FOR 5 DAYS FOR FOLLICULITIS, SINUSITIS 17) TIZANIDINE HCL 4MG TAB TAKE ONE-HALF TABLET BY MOUTH ACTIVE THREE TIMES A DAY NEEDED FOR MUSCLE SPASMS/TIGHTNESS Non-VA Medications Status 1) Non-VA ACETAMINOPHEN 500MG [...] 50MG TAB 50MG MOUTH AT BEDTIME ACTIVE 24 Total Medications Most recent vitals: BP: 134/80 (08/14/2022 17:24) P: 98 (08/14/2022 17:24) RR: 16 (08/14/2022 17:24) T: 97.6 F [36.4 C] (08/14/2022 17:24) Ht: 61.5 in [156.2 cm] (08/04/2022 10:23) Wt: 147 lb [66.68 kg] (08/04/2022 10:23) MENTAL STATUS EXAM: General: Awake, alert, cooperative, sitting in ED gurney Hygiene: Adequately groomed, dressed in street clothes Psychomotor activity: No tremors, dystonia, akathisia, or abnormal movements Eye contact: Good Speech: Regular rate and rhythm, good inflection Mood: Distressed by her intrusive thoughts Affect: Anxious,, angry, demonstrating full range throughout interview Thought process: perseverative, goal directed, tangential Thought content: no current SI. Vague HI without accessible means or particular target. Denies A/V hallucinations and delusions. 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
--- OUTSIDE RECORDS SUMMARY | 2023-07-06 21:09 | XMS_ITS | Encounter Summary ---
Author Name [facility] Organization [facility] Address [address] [place] [address] Support Name Relationship Address Phone RU DIAZ Next of Kin [id number] [address] [address] D[address] V[address]ES Emergency Contact [phone] [address] KAYLA BOND [phone] Insurance Providers: All historical and current Section [...] Patient's Relationship to Policy [facility] [employer] ([facility]) MEDICARE ADVANTAGE MCR ([facility]) Jan 12, 2016 [id number] [phone] SONIA VENCESIFER PATIENT [employer]MANA [facility] ([facility]) MEDICARE ADVANTAGE MCR ([facility]) Mar 13, 2020 [id number] RU,SONIA NNIFER PATIENT [employer]NA [facility] ([facility]) MEDICARE ADVANTAGE MCR ([facility]) Mar 13, 2020 [id number] RU,SONIA DU PATIENT [employer] [facility] ([facility]) MEDICARE ADVANTAGE MCR ([facility]) Mar 13, 2020 [id number] [phone] RU,SONIA NNIFER PATIENT [employer]MANA [facility] ([facility]) MEDICARE ADVANTAGE MCR ([facility]) Mar 13, 2020 [id number] RU,SONIA CHARLESIFER PATIENT [facility] ([facility]) MEDICARE ADVANTAGE MEDIC MARY ELLEN BRADLEY Mar 13, 2019 [id number] SONIA VENCES PATIENT Selected Encounter This section includes the information on record at [place] for the Encounter. Date/Time Encounter Type Encounter Description Reason Provider Source August 04, 2022 10:15 AM OFFICE O/P EST HI 40-54 MIN PRIMARY CARE/MEDICINE ICD-10-CM F42.4 Excoriation (skin-picking) disorder JAS MORRELL E Encounter Template Text not used by [place] Assessments - Encounter Diagnoses This section includes the primary and secondary diagnoses documented for the Encounter. Date/Time Primary/Secondary Diagnosis Diagnosis Name Provider Source August 04, 2022 09:46 PM PRIMARY Excoriation (skin-picking) disorder JAS MORRELL [facility] Plan of Treatment: Future Appointments (+ 6 months) and Future Tests (+/- 45 days) The Plan of Treatment section includes future care activities for the patient from all [place] treatmentfacilities. This section includes future appointments and future orders which are active, pending or scheduled. Future Appointments This section includes appointments that were scheduled to occur 6 months from the date of the Encounter, up to a maximum of 20 appointments. The data comes from all [place] treatment facilities. Appointment Date/Time Appointment Type Appointme nt Facility Name Aug 12, 2022 08:25 PM AM[place]UL[place]ORY [place]ICINE [place] [facility] Aug 14, 2022 05:21 PM [place]ORY [place]IC[place] [facility] Aug 18, 2022 09:00 AM AM[place]ORY - [place]ONE [place] [facility] Aug 25, 2022 01:00 PM [facility] Aug 31, 2022 09:00 AM [place] [place]IC[place] [facility] Sep 01, 2022 06:00 PM [place]ORY - NONE [place] [facility] Sep 02, 2022 10:20 AM AMBUL[place]ORY - [place] [facility] Sep 06, 2022 03:32 PM [place]ORY - [place]ICINE [place] [facility] Sep 12, 2022 02:59 PM [place]ORY - [place]ONE [place] [facility] Sep 27, 2022 02:00 PM AM[place]UL[place]ORY - [place]ICINE [place] [facility] Sep 27, 2022 03:45 PM [place]ORY - NONE [place] [facility] Oct 04, 2022 06:29 PM AM[place]ORY - [place]ICINE [place] [facility] Oct 12, 2022 06:00 PM [place]ORY [place]ONE [place] [facility] Oct 31, 2022 12:09 PM [place]ORY [place]ONE [place] [facility] Nov 01, 2022 03:11 PM [place]ORY [place]ONE [place] [facility] Nov 09, 2022 03:30 PM AM[place]ORY [place] [facility] Nov 22, 2022 02:00 PM [place]ORY [place] NONE [place] [facility] Nov 28, 2022 02:21 PM [place]ORY - NONE [place] [facility] Dec 05, 2022 12:42 PM [place]ORY - NONE [place] [facility] Dec 16, 2022 05:58 PM [place]ORY [place]ONE [place] [facility] Lab Results: +/- 30 days of [...] Range Comment Aug 14, 2022 06:34 PM [facility] POC CREATININE Specimen Type: BLOOD No comment entered. Ordering Provider: CHARLIE GRECO Report Released Date/Time: Aug 14, 2022 06:36 PM Reporting Lab: [facility] [id number] Performing Lab: [facility] [address] POC CREATININE 0.7 0.6-1.3 Aug 14, 2022 06:12 PM [facility] EXTRA GOLD GEL TUBE Specimen Type: SERUM No comment entered. Ordering Provider: CHARLIE GRECO Report Released Date/Time: Aug 14, 2022 06:12 PM Reporting Lab: [facility] [id number] Performing Lab: [facility] [address] EXTRA GOLD GEL TUBE RECEIVED Aug 14, 2022 06:12 PM [facility] LIPASE Specimen Type: PLASMA No comment entered. Ordering Provider: CHARLIE GRECO Report Released Date/Time: Aug 14, 2022 06:01 PM Reporting Lab: [facility] [address] Performing Lab: [facility] [address] LIPASE 32 See_Commen t Aug 14, 2022 06:12 PM [facility] HCG, QUAL Specimen Type: URINE No comment entered. Ordering Provider: CHARLIE GRECO Report Released Date/Time: Aug 14, 2022 06:01 PM Reporting Lab: [facility] [address] Performing Lab: [facility] [phone] HCG, QUAL NEGATIVE See_Commen t Aug 14, 2022 06:12 PM [facility] COMPREHENSIVE METABOLIC PANEL+MG Specimen Type: PLASMA No comment entered. Ordering Provider: CHARLIE GRECO Report Released Date/Time: Aug 14, 2022 06:01 PM Reporting Lab: [facility] [address] Performing Lab: [facility] [address] CREATININE 0.6 0.5-1.0 UREA NITROGEN 13 7-20 [...] See_Commen t Aug 14, 2022 06:12 PM [facility] CBC & DIFF Specimen Type: BLOOD Comment: Automated Differential Performed Ordering Provider: CHARLIE GRECO Report Released Date/Time: Aug 14, 2022 06:01 PM Reporting Lab: [facility] [id number] Performing Lab: [facility] [address] WBC 18.70 H 4.0-11.0 RBC 5.41 H [...] EOS 0.24 0-0.5 ABS BASO 0.10 0-0.2 IG(META,MYELO,FL O) 0.4 ABS IMMATURE GRAN 0.08 0-0.1 Aug 14, 2022 06:12 PM [facility] URINALYSIS Specimen Type: URINE No comment entered. Ordering Provider: KAILEE AZAR Report Released Date/Time: Aug 14, 2022 06:23 PM Reporting Lab: [facility] [address] Performing Lab: [facility] [address] URINE COLOR YELLOW SPECIFIC GRAVITY 1.028 1.0 [...] See_Commen t Aug 12, 2022 09:00 PM [facility] DRUG SCREEN PANEL,URINE Specimen Type: URINE Comment: Presumptive Positive by screen, results not confirmed. Ordering Provider: BERKLEY LÓPEZ Report Released Date/Time: Aug 12, 2022 08:52 PM Reporting Lab: [facility] [address] Performing Lab: [facility] [address] BARBITURATES POSITIVE H See_Com men t AMPHETAMINES [...] 4 61.5 in 147 lb 27 [facility] Social History: Smoking Status (Most current) and Tobacco Use (All prior to encounter date) This section includes the most current, and the historical, smoking and tobacco- related health factors from the [place] facility where the Encounter took place. Current Smoking Status This section includes the most current smoking, or tobacco-related health factor, from the [place] facility where the Encounter took place. Date/Time Current Smoking Status Comment Facil ity Jun 17, 2015 07:02 AM FORMER TOBACCO USE >1Y <7Y [facility] Tobacco Use History This section includes a history of the smoking, or tobacco-related health factors, that were collected on or before the date of the Encounter. The data comes from the [place] facility where the Encounter took place. Date/Time Smoking Status/Tobacco Use Comment F acility July 30, 2014 09:31 AM FORMER TOBACCO USE <1Y [facility] Radiology Reports: +/- 30 days [...] the Encounter. The data comes from all [place] treatment facilities. Date/Time Radiology Report Provider Source Aug 14, 2022 06:[address] (AP) ABDOMEN/PELVIS (P): APPLE VENCES [id number] F Exm Date: AUG 14, 2022@18:22 Req Phys: CHARLIE GRECO Loc: [facility] EMERGENCY DEPT WALK-IN (Re Img Loc: CT IMAGING Service: Unknown Screen: Patient answered no (Case [id number] COMPLETE) CT (AP) ABDOMEN/PELVIS W CONTRAST(CT Detailed) CPT:61558 Contrast Media : Non-ionic Iodinated Reason for Study: abdominal pain, elevated WBC Clinical History: [place] IS NOT under investigation for COVID-19 or [...] COMMENTS AVAILABLE...Refer to Interim Lab Report. Allergies: ([place] only) TETRACYCLINE (July 30, 2014) VENLAFAXINE (July 30, 2014) OXYCODONE (July 30, 2014) PREDNISONE (July 30, 2014) QUETIAPINE (July 30, 2014) TRAMADOL (July 30, 2014) TRAZODONE (July 30, 2014) To see allergies from all [place] locations click Reports tab>Remote Data>All Available Sites>Clinical Reports>Allergies. Report Status: Verified Date Reported: AUG 14, 2022 Date Verified: AUG 14, 2022 Key Account Executive E-Sig: Report: EXAMINATION: CT (AP) ABDOMEN/PELVIS W CONTRAST [PRINTSET] Clinical History: abdominal pain, elevated WBC. Comparison: No priors available Technique: Axial CT scanning of the abdomen and pelvis was performed from the lung bases through the symphysis pubis without administration of oral and during administration of intravenous contrast. The study was protocoled and supervised [facility] the local [facility]. 777 images were subsequently received by the [place] National Teleradiology Program (NTP) for interpretation. Total [...] as described READING PHYSICIAN: Julien Mena MD -[id number] 08/14/2022 21:03 EDT [facility] National Teleradiology Program [phone] (For Medical Practitioner Use Only) Attention Patients / Veterans: If you have questions or concerns about these test results, please contact your ordering provider or primary care team. Primary Interpreting Staff: RADIOLOGY,OUTSIDE SERVICE, Staff Physician / RADIOLOGY,OUTSIDE SERVICE [facility] Pathology Reports: +/- 30 days [...] the Encounter. The data comes from all [place] treatment facilities. Date/Time Pathology Report Provider Source Aug 14, 2022 08:24 PM LR MICROBIOLOGY RE PORT: Reporting Lab: [facility] [CLIA# [id number]] [place] [address] Accession [UID]: [id number] [[id number]] Received: Aug 14, 2022@20:24 Collection sample: URINE Collection date: Aug 14, 2022 20:24 Provider: CHARLIE GRECO Comment on specimen: RECEIVED IN STERILE CUP Test(s) ordered: CULTURE & SUSCEPTIBILITY...... completed: Aug 16, 2022 * BACTERIOLOGY FINAL REPORT => Aug 16, 2022 12:40 TECH CODE: [id number] CULTURE RESULTS: 1. SMALL, AEROBIC GRAM POSITIVE RODS - Quantity: >100,000 Comment: No susceptibility testing performed. 2. LESS THAN 10,000 OTHER ORGANISM Bacteriology Remark(s): THIS REPORT IS FINAL =--=--=--=--=--=--=--=--=--=--=--=- -=--=--=--=--=--=--=--=--=--=--=--= --=--=-- Performing Laboratory: Bacteriology Report Performed By: [facility] [CLIA# [id number]] [place] [address] [facility] August 02, 2022 04:00 PM LR MICROBIOLOGY RE PORT: Reporting Lab: [facility] [CLIA# [id number]] [place] [address] Accession [UID]: [id number] [[id number]] Received: August 02, 2022@16:20 Collection sample: WOUND Collection date: August 02, 2022 16:00 Provider: ROBBY ABBOTT Comment on specimen: SCALP WOUND, SWAB RECEIVED Test(s) ordered: GRAM STAIN.................... completed: August 02, 2022 17:17 CULTURE & SUSCEPTIBILITY...... completed: August 04, 2022 * BACTERIOLOGY FINAL REPORT => August 04, 2022 12:52 TECH CODE: [id number] GRAM STAIN: DIRECT SMEAR of specimen before culturing shows: NO PMNS SEEN 1+ EPITHELIAL CELLS NO ORGANISMS SEEN CULTURE PENDING CULTURE RESULTS: STAPHYLOCOCCUS EPIDERMIDIS - Quantity: 2+ Comment: No susceptibility testing performed. Bacteriology Remark(s): THIS REPORT IS FINAL =--=--=--=--=--=--=--=--=--=--=--=- -=--=--=--=--=--=--=--=--=--=--=--= --=--=-- Performing Laboratory: Bacteriology Report Performed By: [facility] [CLIA# [id number]] [place] [address] [facility] Encounter Notes: All associated encounter notes This section contains the clinical notes associated to the Encounter. Date/Time Encounter Note(s) Provider Source August 04, 2022 10:52 AM INTERNAL MEDICINE NOTE: LOCAL TITLE: MEDICINE CLINIC NOTE STANDARD TITLE: INTERNAL MEDICINE NOTE DATE OF NOTE: AUGUST 04, 2022@10:52 ENTRY DATE: AUGUST 04, 2022@10:52:13 AUTHOR: JAS MORRELL EXP COSIGNER: URGENCY: STATUS: COMPLETED HPI: 51 year old FEMALE with PMH of below medical conditions seen today for ANNUAL VISIT. Last seen by PACT at [facility] 05/17/21. Tolerating medications without adverse effects. Receives medical care with [facility]. [facility] records reviewed in [facility]. Has chronic migraines which she feels are controlled with medical cannabis. She follows with mental health. Sees [facility] annually for medication renewals and to maintain enrollment. She has moved to [place] to be closer to family. She is requesting to transfer primary care to [facility]. S: Patient presents to discuss recurring scalp infections. Has discussed with multiple providers, including seeing Derm yesterday. Also would like to transfer from [facility] to [place] for primary care -> have ordered RTC for intake with women's health provider. 1y of scalp lesions that come/go. Reports since Covid - mentions acne vulgaris it's in my body. Worried about MRSA. Reports lesions have also been on arms, specifically left arm, saying it transfers there, meaning dripping, as she washes hair with left arm. Says Clindamycin pill is what clears it up, also Doxycycline pill but slower relief. Currently reports feeling heat come off of lesions, she wonders if it's infected. Mentions cutting out wheat, so doesn't think this is due to celiac which apparently someone suggested in past. Often runs out of Clindamycin topical. Reports also using a face cleanser that also has Clindamycin (gets from [place] [facility]). Continues to do Keto shampoo, Clindamycin topical, dilue vinegar soaks (though states this doesn't take away, and states she does full-on vinegar soaks) States she can feel scalp getting warm, which is a prelude to infection. Awaiting MRSA / wound results that was biopsied from Derm yesterday. O: 3 red ulcers on left side of scalp, varying 0.5 to 1.5cm, no signs of infection, pus, erythema, warmth. Normal vital signs, including no fever. A/P: # Dermatillomania: No signs of infection today, despite patient being fixated on this. Discussed no need for antibiotics today. Advised following recommendations from Derm, and she has f/u with them in 1m. I concur with their assessment, including consideratings of SSRI modifications / discussing with Psych. Jas Morrell PA-C /jose armando/ JAS MORRELL PA-C PHYSICIAN MOLECULAR SPECTROSCOPIST Signed: 08/04/2022 21:46 JAS MORRELL [facility] August 04, 2022 10:27 AM INTERNAL MEDICINE OUTPATIENT NOTE: LOCAL TITLE: MEDICINE CLINIC NURSING NOTE STANDARD TITLE: INTERNAL MEDICINE OUTPATIENT NOTE DATE OF NOTE: AUGUST 04, 2022@10:27 ENTRY DATE: AUGUST 04, 2022@10:27:28 AUTHOR: TEX POSADA EXP COSIGNER: URGENCY: STATUS: COMPLETED MEDICINE CLINIC NURSING NOTE Has ADDENDA TYPE OF VISIT: Appointment Check In Type of appointment: In-person appointment REASON FOR VISIT: SWETHA - has been having issues with L side of top, left side of head infection ALLERGIES: TETRACYCLINE (July 30, 2014) VENLAFAXINE (July 30, 2014) OXYCODONE (July 30, 2014) PREDNISONE (July 30, 2014) QUETIAPINE (July 30, 2014) TRAMADOL (July 30, 2014) TRAZODONE (July 30, 2014) VITAL SIGNS: Blood Pressure: 116/74 (08/04/2022 10:23) Pulse: 74 (08/04/2022 10:23) Respiration: 16 (08/04/2022 10:23) Temperature: 95.8 F [35.4 C] (08/04/2022 10:23) Weight: 147 lb [66.68 kg] (08/04/2022 10:23) Height: 61.5 in [156.2 cm] (08/04/2022 10:23) BMI: 27.4 O2 Sat: 98% (08/04/2022 10:23) Pain: 4 (08/04/2022 10:23) PAIN SCREEN: Patient is not having significant pain that they wish to discuss with their provider today. FEMALE Last menstrual period (LMP): 07/08/2022 : 1 Para: ,,,1 /jose armando/ TEX POSADA PATTERN CARRIER Signed: 08/04/2022 10:31 08/04/2022 ADDENDUM STATUS: COMPLETED Influenza Immunization: The patient has received the seasonal influenza vaccine for the current season at another location. Documented: INFLUENZA, UNSPECIFIED FORMULATION Historical Date Administered: Apr 29, 2022 Outside Location: [facility] Information Source: FROM OTHER REGISTRY PNEUMOCOCCAL VACCINATION Pneumococcal vaccine given previously - written records available Documented: PNEUMOCOCCAL POLYSACCHARIDE PPV23 Historical Date Administered: Mar 10, 2010 Outside Location: [facility] Information Source: FROM OTHER REGISTRY Documented: PNEUMOCOCCAL CONJUGATE PCV 13 Historical Date Administered: Dec 23, 2016 Outside Location: [facility] Information Source: FROM OTHER REGISTRY COVID-19 Immunization Booster: Pfizer BIVALENT Documented: COVID-19 (PFIZER), MRNA, LNP-S, BIVALENT BOOSTER, PF, 30 MCG/0.3 ML DOSE Historical Date Administered: Apr 29, 2022 Series: Booster Outside Location: [facility] Information Source: FROM OTHER REGISTRY /jose armando/ TEX POSADA LPN Signed: 08/04/2022 11:16 TEX POSADA [facility]
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
--- OUTSIDE RECORDS SUMMARY | 2023-07-06 21:09 | XMS_ITS | Encounter Summary ---
Author Name [employer] [facility] [employer] Organization [facility] Address [address] [place] [address] Support Name Relationship Address Phone RUDIAZ Next of Kin [phone]te[address]. KAYLA BOND [phone] RU DIAZ Emergency Contact [phone] VARUN POLANCO. KAYLA BOND [phone] Insurance Providers: All historical and current Section [...] Patient's Relationship to Policy [facility] ([facility]) MEDICARE ADVANTAGE MCR ([facility]) Jan 12, 2016 [id number] [phone] SONIA VENCESIFER PATIENT [facility] ([facility]) MEDICARE ADVANTAGE MCR ([facility]) Mar 13, 2020 [id number] SONIA VENCESIE PATIENT [facility] ([facility]) MEDICARE [facility] ([facility]) Mar 13, 2020 [id number] [phone] RU,SONIA NNIFER PATIENT [facility] ([facility]) MEDICARE ADVANTAGE MCR ([facility]) Mar 13, 2020 [id number] [phone] RU,SONIA NNIFER PATIENT [facility] (R) MEDICARE ADVANTAGE MCR ([facility]) Mar 13, 2020 [id number] [phone] RU,SONIA NNIFER PATIENT [facility] ([facility]) MEDICARE ADVANTAGE MEDIC [facility] BRADLEY Mar 13, 2019 [id number] OSNIA VENCES PATIENT Selected Encounter This section includes the information on record at [place] for the Encounter. Date/Time Encounter Type Encounter Description Reason Pro vider Source Aug 31, 2022 09:00 AM Outpatient Encounter PRIMARY CARE/MEDICINE IHE Encounter Template Text not used by [place] Plan of Treatment: Future Appointments (+ 6 months) and Future Tests (+/- 45 days) The Plan of Treatment section includes future care activities for the patient from all [place] treatmentfacilities. This section includes future appointments and future orders which are active, pending or scheduled. Future Appointments This section includes appointments that were scheduled to occur 6 months from the date of the Encounter, up to a maximum of 20 appointments. The data comes from all [place] treatment facilities. Appointment Date/Time Appointment Type Appointme nt Facility Name Sep 01, 2022 06:00 PM AMBULATORY - [...] 03:30 PM AMBULATORY [place] [facility] Nov 22, 2022 02:00 PM [facility] [place] [facility] Nov 28, 2022 02:21 PM [facility]ORY [place] [facility] Dec 05, 2022 12:42 PM [facility]ORY [place] [facility] Dec 16, 2022 05:58 PM [facility]ORY [place]ONE [place] [facility] Jan 19, 2023 09:00 AM AMBULATORY [place] [facility] Jan 19, 2023 09:30 AM AMBULATORY - [place] [facility] Feb 27, 2023 09:16 PM [facility] - [place]ONE [place] [facility] Lab Results: +/- [...] Result - Unit Interpretation Reference Range Comment Sep 27, 2022 04:49 PM [facility] C.TRACHOMATIS/N.GONORRHEA DNA Specimen Type: URINE No comment entered. Ordering Provider: JOSE GRANADOS SA Report Released Date/Time: Sep 27, 2022 03:02 PM Reporting Lab: [facility] [address] Performing Lab: [facility] [address] C.TRACHOMATIS DNA NOT DETECTED N.GONORRHEA DNA NOT DETECTED CT/NG INTERPRETATION Infectious agent DNA is not detected by this assay Sep 27, 2022 04:49 PM [facility] C.TRACHOMATIS/N.GONORROEAE,RECTAL Specimen Type: RECTAL Comment: Specimen too short for repeat testing Cancellation reported to: Diya Rodas RN at 0910-03-22,TTP Test not performed. Initial testing necessitated a repeat, but there was insufficient sample to perform repeat. Test Performed by [facility], [facility], [address] [place] [address] Tigre Valdovinos M.D., Ph.D., Director of Laboratories , [facility] [id number] Ordering Provider: JOSE GRANADOS SA Report Released Date/Time: Sep 27, 2022 03:02 PM Reporting Lab: [facility] [address] Performing Lab: [address] .C TRACHOMATIS,RNA TNP .N GONORROEAE,RNA TNP Sep 27, 2022 04:49 PM [facility] C.TRACHOMATIS/N.GONORROEAE,THROAT Specimen Type: THROAT Comment: Methodology: Congressional Aide Mediated Amplification(T MA) to detect RNA. The analytical performance characteristics of this assay have been determined by [facility] [place], [place]. The modifications have not been cleared or approved by the FDA. This assay has been validated pursuant to the CLIA regulations and is used for clinical purposes. Test Performed by [facility], [facility], [address] [place] [address] Tigre Valdovinos M.D., Ph.D., Director of Laboratories , CLIA [id number] Ordering Provider: JOSE GRNAADOS SA Report Released Date/Time: Sep 27, 2022 03:02 PM Reporting Lab: [facility] [address] Performing Lab: [address] .C TRACHOMATIS,RNA Not Detected See_Commen t .N GONORROEAE,RNA Not Detected See_Commen t Sep 27, 2022 03:38 PM [facility] HIV AG/AB SCREEN Specimen Type: SERUM No comment entered. Ordering Provider: JOSE GRANADOS SA Report Released Date/Time: Sep 27, 2022 03:02 PM Reporting Lab: [facility] [address] Performing Lab: [facility] [address] HIV AG/AB SCREEN NEGATIVE See_Commen t Sep 27, 2022 03:38 PM [facility] ANTI-HEP C(EIA) Specimen Type: SERUM No comment entered. Ordering Provider: JOSE GRANADOS SA Report Released Date/Time: Sep 27, 2022 03:02 PM Reporting Lab: [facility] [address] Performing Lab: [facility] [address] ANTI-HEP C(EIA) NEGATIVE See_ Commen t Sep 27, 2022 03:38 PM [facility] SYPHILIS ANTIBODY Specimen Type: SERUM No comment entered. Ordering Provider: JOSE GRANADOS SA Report Released Date/Time: Sep 27, 2022 03:02 PM Reporting Lab: [facility] [address] Performing Lab: [facility] [address] SYPHILIS ANTIBODY NEGATIVE Aug 14, 2022 06:34 PM [facility] POC CREATININE Specimen Type: BLOOD No comment entered. Ordering Provider: CHARLIE GRECO Report Released Date/Time: Aug 14, 2022 06:36 PM Reporting Lab: [facility] [address] Performing Lab: [address] POC CREATININE 0.7 0.6-1.3 Aug 14, 2022 06:12 PM [facility] EXTRA GOLD GEL TUBE Specimen Type: SERUM No comment entered. Ordering Provider: CHARLIE GRECO Report Released Date/Time: Aug 14, 2022 06:12 PM Reporting Lab: [facility] [address] Performing Lab: [facility] [address] EXTRA GOLD GEL TUBE RECEIVED Aug 14, 2022 06:12 PM [facility] LIPASE Specimen Type: PLASMA No comment entered. Ordering Provider: CHARLIE GRECO Report Released Date/Time: Aug 14, 2022 06:01 PM Reporting Lab: [facility] [address] Performing Lab: [facility] [address] LIPASE 32 See_Commen t Aug 14, 2022 06:12 PM [facility] HCG, QUAL Specimen Type: URINE No comment entered. Ordering Provider: CHARLIE GRECO Report Released Date/Time: Aug 14, 2022 06:01 PM Reporting Lab: [facility] [address] Performing Lab: [facility] [address] HCG, QUAL NEGATIVE See_Commen t Aug 14, 2022 06:12 PM [facility] COMPREHENSIVE METABOLIC PANEL+MG Specimen Type: PLASMA No comment entered. Ordering Provider: CHARLIE GRECO Report Released Date/Time: Aug 14, 2022 06:01 PM Reporting Lab: [facility] [address] Performing Lab: [facility] [address] CREATININE 0.6 0.5-1.0 UREA NITROGEN 13 7-20 [...] See_Commen t Aug 14, 2022 06:12 PM [facility] CBC & DIFF Specimen Type: BLOOD Comment: Automated Differential Performed Ordering Provider: CHARLIE GRECO Report Released Date/Time: Aug 14, 2022 06:01 PM Reporting Lab: [facility] [address] Performing Lab: [facility] [address] WBC 18.70 H 4.0-11.0 RBC 5.41 H [...] EOS 0.24 0-0.5 ABS BASO 0.10 0-0.2 IG(META,MYELO,P RO) 0.4 ABS IMMATURE GRAN 0.08 0-0.1 Aug 14, 2022 06:12 PM [facility] URINALYSIS Specimen Type: URINE No comment entered. Ordering Provider: KAILEE AZAR Report Released Date/Time: Aug 14, 2022 06:23 PM Reporting Lab: [facility] [address] Performing Lab: [facility] [address] URINE COLOR YELLOW SPECIFIC GRAVITY 1.028 1.003-1.03 5 URINE BILIRUBIN NEGATIVE See_ Commen t [...] See_Commen t Aug 12, 2022 09:00 PM [facility] DRUG SCREEN PANEL,URINE Specimen Type: URINE Comment: Presumptive Positive by screen, results not confirmed. Ordering Provider: SANJU LÓPEZ Report Released Date/Time: Aug 12, 2022 08:52 PM Reporting Lab: [facility] [address] Performing Lab: [facility] [address] BARBITURATES POSITIVE H See_Com men t AMPHETAMINES [...] and tobacco- related health factors from the [place] facility where the Encounter took place. Current Smoking Status This section includes the most current smoking, or tobacco-related health factor, from the [place] facility where the Encounter took place. Date/Time Current Smoking Status Comment Facil ity Jun 17, 2015 07:02 AM FORMER TOBACCO USE >1Y <7Y [facility] Tobacco Use History This section includes a history of the smoking, or tobacco-related health factors, that were collected on or before the date of the Encounter. The data comes from the [place] facility where the Encounter took place. Date/Time Smoking Status/Tobacco Use Comment F acility July 30, 2014 09:31 AM FORMER TOBACCO USE <1Y [facility] Radiology Reports: +/- 30 days of [...] the Encounter. The data comes from all [place] treatment facilities. Date/Time Radiology Report Provider Source Aug 14, 2022 06:[address] (AP) ABDOMEN/PELVIS (P): APPLE VENCES [id number] F Exm Date: AUG 14, 2022@18:22 Req Phys: CHARLIE GRECO Loc: [facility] EMERGENCY DEPT WALK-IN (Re Img Loc: CT IMAGING Service: Unknown Screen: Patient answered no (Case [id number] COMPLETE) CT (AP) ABDOMEN/PELVIS W CONTRAST(CT Detailed) CPT:12280 Contrast Media : Non-ionic Iodinated Reason for [...] COMMENTS AVAILABLE...Refer to Interim Lab Report. Allergies: ([place] only) TETRACYCLINE (July 30, 2014) VENLAFAXINE (July 30, 2014) OXYCODONE (July 30, 2014) PREDNISONE (July 30, 2014) QUETIAPINE (July 30, 2014) TRAMADOL (July 30, 2014) TRAZODONE (July 30, 2014) To see allergies from all [facility] locations click Reports tab>Remote Data>All Available Sites>Clinical Reports>Allergies. Report Status: Verified Date Reported: AUG 14, 2022 Date Verified: AUG 14, 2022 Email Marketing Coordinator E-Sig: Report: EXAMINATION: CT (AP) ABDOMEN/PELVIS W CONTRAST [PRINTSET] Clinical History: abdominal pain, elevated WBC. Comparison: No priors available Technique: Axial CT scanning of the abdomen and pelvis was performed from the lung bases through the symphysis pubis without administration of oral and during administration of intravenous contrast. The study was protocoled and supervised at the local [place] facility. 777 images were subsequently received by the [place] National [facility] (NTP) for interpretation. Total [...] as described READING PHYSICIAN: Julien Mena MD -[id number] 08/14/2022 21:03 EDT [facility] [phone] (For Medical Practitioner Use Only) Attention Patients / Veterans: If you have questions or concerns about these test results, please contact your ordering provider or primary care team. Primary Interpreting Staff: RADIOLOGY,OUTSIDE SERVICE, Staff Physician / RADIOLOGY,OUTSIDE SERVICE [facility] Pathology Reports: +/- 30 days of [...] the Encounter. The data comes from all [place] treatment facilities. Date/Time Pathology Report Provider Source Aug 14, 2022 08:24 PM LR MICROBIOLOGY RE PORT: Reporting Lab: [facility] [CLIA# [id number]] [place] [address] Accession [UID]: [id number] [[id number]] Received: Aug 14, 2022@20:24 Collection sample: URINE Collection date: Aug 14, 2022 20:24 Provider: CHARLIE GRECO Comment on specimen: RECEIVED IN STERILE CUP Test(s) ordered: CULTURE & SUSCEPTIBILITY...... completed: Aug 16, 2022 * BACTERIOLOGY FINAL REPORT => Aug 16, 2022 12:40 TECH CODE: [id number] CULTURE RESULTS: 1. SMALL, AEROBIC GRAM POSITIVE RODS - Quantity: >100,000 Comment: No susceptibility testing performed. 2. LESS THAN 10,000 OTHER ORGANISM Bacteriology Remark(s): THIS REPORT IS FINAL =--=--=--=--=--=--=--=--=--=--=--=- -=--=--=--=--=--=--=--=--=--=--=--= --=--=-- Performing Laboratory: Bacteriology Report Performed By: [facility] [CLIA# [id number]] [place] [address] [facility] August 02, 2022 04:00 PM LR MICROBIOLOGY RE PORT: Reporting Lab: [facility] [CLIA# [id number]] [place] [address] Accession [UID]: [id number] [[id number]] Received: August 02, 2022@16:20 Collection sample: WOUND Collection date: August 02, 2022 16:00 Provider: ROBBY ABBOTT Comment on specimen: SCALP WOUND, SWAB RECEIVED Test(s) ordered: GRAM STAIN.................... completed: August 02, 2022 17:17 CULTURE & SUSCEPTIBILITY...... completed: August 04, 2022 * BACTERIOLOGY FINAL REPORT => August 04, 2022 12:52 TECH CODE: [id number] GRAM STAIN: DIRECT SMEAR of specimen before culturing shows: NO PMNS SEEN 1+ EPITHELIAL CELLS NO ORGANISMS SEEN CULTURE PENDING CULTURE RESULTS: STAPHYLOCOCCUS EPIDERMIDIS - Quantity: 2+ Comment: No susceptibility testing performed. Bacteriology Remark(s): THIS REPORT IS FINAL =--=--=--=--=--=--=--=--=--=--=--=- -=--=--=--=--=--=--=--=--=--=--=--= --=--=-- Performing Laboratory: Bacteriology Report Performed By: [facility] [CLIA# [id number]] [address] [place] [address] [facility] Encounter Notes: All associated encounter notes This section contains the clinical notes associated to the Encounter. Date/Time Encounter Note(s) Provider Source Aug 31, 2022 10:32 AM NO SHOW NOTE: LOCAL TITLE: NO SHOW/CANCELLATION CLINIC NOTE STANDARD TITLE: NO SHOW NOTE DATE OF NOTE: AUG 31, 2022@10:32 ENTRY DATE: AUG 31, 2022@10:32:14 AUTHOR: JORGITO GRANADOS EXP COSIGNER: URGENCY: STATUS: COMPLETED Den[place] not seen for scheduled appointment due to: No Show Appointment Rescheduled: No Please review patient chart and medications for renewal needs (if appropriate). /jose armando/ Jorgito Granados MD Physician Signed: 08/31/2022 10:32 JORGITO GRANADOS [facility]
--- OUTSIDE RECORDS SUMMARY | 2023-07-06 21:09 | XMS_ITS | Encounter Summary ---
Author Name [facility] [employer] Organization [facility] Address [address] [place] [address] Support Name Relationship Address Phone RUDIAZ Next of Kin [address] [address] [phone] DIAZ VENCES Emergency Contact [phone] [address] [phone] Insurance Providers: All historical and current Section [...] Patient's Relationship to Policy [facility] ([place]) MEDICARE ADVANTAGE MCR ([place]) Jan 12, 2016 [id number] [phone] SONIA VENCESIFER PATIENT [employer] [facility] (WNR) MEDICARE ADVANTAGE MCR (R) Mar 13, 2020 [id number] SONIA VENCESIE PATIENT [employer] [facility] ([place]) MEDICARE [facility] (R) Mar 13, 2020 [id number] RU,SONIA NNIFER PATIENT [employer] [facility] ([place]) MEDICARE ADVANTAGE MCR (WNR) Mar 13, 2020 [id number] [phone] RU,SONIA NNIFER PATIENT [employer] [facility] ([place]) MEDICARE ADVANTAGE MCR (WNR) Mar 13, 2020 [id number] RU,JE NNIFER PATIENT [facility] (WNR) MEDICARE ADVANTAGE MEDIC ARE NATHEN BRADLEY Mar 13, 2019 [id number] SONIA VENCES PATIENT Selected Encounter This section includes the information on record at MD for the Encounter. Date/Time Encounter Type Encounter Description Reason Provider Source Aug 14, 2022 05:21 PM EMERGENCY DEPT VISIT [facility] EM[facility]GENCY DEPT ICD-10-CM J18.9 Pneumonia, unspecified organism ALEK TAN Braulio Encounter Template Text not used by MD Assessments - Encounter Diagnoses This section includes the primary and secondary diagnoses documented for the Encounter. Date/Time Primary/Secondary Diagnosis Diagnosis Name Provider Source Aug 14, 2022 08:56 PM PRIMARY Pneumonia, unspecified organism ALEK TAN [facility] Plan of Treatment: Future Appointments (+ 6 months) and Future Tests (+/- 45 days) The Plan of Treatment section includes future care activities for the patient from all MD treatmentfacilities. This section includes future appointments and future orders which are active, pending or scheduled. Future Appointments This section includes appointments that were scheduled to occur 6 months from the date of the Encounter, up to a maximum of 20 appointments. The data comes from all MD treatment facilities. Appointment Date/Time Appointment Type Appointme nt Facility Name Aug 18, 2022 09:00 AM AMBULATORY - NONE [place] [facility] Aug 25, 2022 01:00 PM [facility] Aug 31, 2022 09:00 AM AM[facility]UL[place]ORY [place]IC[place] [facility] Sep 01, 2022 06:00 PM AMBULATORY - NONE [place] [facility] [facility] Sep 02, 2022 10:20 AM AMBUL[facility]ORY - SURGERY [place] [facility] [facility] Sep 06, 2022 03:32 PM [place]UL[place]ORY - [place]ICINE [place] [facility] Sep 12, 2022 02:59 PM AMBULATORY - NONE [place] [facility] Sep 27, 2022 02:00 PM [place]UL[place]ORY - [place]ICINE [place] [facility] Sep 27, 2022 03:45 PM AMBULATORY - NONE [place] [facility] [facility] Oct 04, 2022 06:29 PM AMBULATORY - MEDICINE [place] [facility] Oct 12, 2022 06:00 PM AMBULATORY - NONE [place] [facility] Oct 31, 2022 12:09 PM [facility]ORY - NONE [place] [facility] Nov 01, 2022 03:11 PM AMBULATORY - NONE [place] [facility] [facility] Nov 09, 2022 03:30 PM AMBUL[place]ORY [place] [facility] Nov 22, 2022 02:00 PM AMBULATORY - NONE [place] [facility] Nov 28, 2022 02:21 PM AMBULATORY - NONE [place] [facility] Dec 05, 2022 12:42 PM AMBULATORY - NONE [place] [facility] Dec 16, 2022 05:58 PM AMBULATORY - NONE [place] [facility] Jan 19, 2023 09:00 AM [place] [facility] Jan 19, 2023 09:30 AM [facility] [place] [facility] Lab Results: +/- 30 days of the encounter This section includes the Chemistry and Hematology Lab Results on record with MD for the patient. Radiology Reports and Pathology Reports are provided separately, in subsequent sections. Lab Results This section contains the Chemistry/Hematology Results that were resulted 30 days before or 30 daysafter the date of the Encounter. Date/Time Source Result Type Result - Unit Interpretation Reference Range Comment Aug 14, 2022 06:34 PM [facility] POC CREATININE Specimen Type: BLOOD No comment entered. Ordering Provider: ALEK TAN Report Released Date/Time: Aug 14, 2022 06:36 PM Reporting Lab: [facility] [id number] Performing Lab: [facility] [id number] POC CREATININE 0.7 0.6-1.3 Aug 14, 2022 06:12 PM [facility] EXTRA GOLD GEL TUBE Specimen Type: SERUM No comment entered. Ordering Provider: ALEK TAN Report Released Date/Time: Aug 14, 2022 06:12 PM Reporting Lab: [facility] [phone] Performing Lab: [facility] [id number] EXTRA GOLD GEL TUBE RECEIVED Aug 14, 2022 06:12 PM [facility] LIPASE Specimen Type: PLASMA No comment entered. Ordering Provider: ALEK TAN Report Released Date/Time: Aug 14, 2022 06:01 PM Reporting Lab: [facility] [id number] Performing Lab: [facility] [address] LIPASE 32 See_Commen t Aug 14, 2022 06:12 PM [facility] HCG, QUAL Specimen Type: URINE No comment entered. Ordering Provider: ALEK TAN Report Released Date/Time: Aug 14, 2022 06:01 PM Reporting Lab: [facility] [phone] Performing Lab: [facility] [phone] HCG, QUAL NEGATIVE See_Commen t Aug 14, 2022 06:12 PM [facility] COMPREHENSIVE METABOLIC PANEL+MG Specimen Type: PLASMA No comment entered. Ordering Provider: ALEK TAN Report Released Date/Time: Aug 14, 2022 06:01 PM Reporting Lab: [facility] [phone] Performing Lab: [facility] [address] CREATININE 0.6 0.5-1.0 UREA NITROGEN 13 7-20 [...] See_Commen t Aug 14, 2022 06:12 PM [facility] CBC & DIFF Specimen Type: BLOOD Comment: Automated Differential Performed Ordering Provider: ALEK TAN Report Released Date/Time: Aug 14, 2022 06:01 PM Reporting Lab: [facility] [phone] Performing Lab: [facility] [address] WBC 18.70 H 4.0-11.0 RBC 5.41 H [...] EOS 0.24 0-0.5 ABS BASO 0.10 0-0.2 IG(META,MYELO,OR O) 0.4 ABS IMMATURE GRAN 0.08 0-0.1 Aug 14, 2022 06:12 PM [facility] URINALYSIS Specimen Type: URINE No comment entered. Ordering Provider: KAILEE AZAR Report Released Date/Time: Aug 14, 2022 06:23 PM Reporting Lab: [facility] [phone] Performing Lab: [facility] [address] URINE COLOR YELLOW SPECIFIC GRAVITY 1.028 1.0 [...] See_Commen t Aug 12, 2022 09:00 PM [facility] DRUG SCREEN PANEL,URINE Specimen Type: URINE Comment: Presumptive Positive by screen, results not confirmed. Ordering Provider: BERKLEY LÓPEZ Report Released Date/Time: Aug 12, 2022 08:52 PM Reporting Lab: [facility] [phone] Performing Lab: [facility] [phone] BARBITURATES POSITIVE H See_Com men t AMPHETAMINES [...] mm[Hg] 16 /min 98 % 6 [place] Social History: Smoking Status (Most current) and Tobacco Use (All prior to encounter date) This section includes the most current, and the historical, smoking and tobacco- related health factors from the [facility] where the Encounter took place. Current Smoking Status This section includes the most current smoking, or tobacco-related health factor, from the MD facility where the Encounter took place. Date/Time Current Smoking Status Comment Facil ity Jun 17, 2015 07:02 AM FORMER TOBACCO USE >1Y <7Y [facility] Tobacco Use History This section includes a history of the smoking, or tobacco-related health factors, that were collected on or before the date of the Encounter. The data comes from the MD facility where the Encounter took place. Date/Time Smoking Status/Tobacco Use Comment F acility July 30, 2014 09:31 AM FORMER TOBACCO USE <1Y [facility] Radiology Reports: +/- 30 days [...] the Encounter. The data comes from all MD treatment facilities. Date/Time Radiology Report Provider Source Aug 14, 2022 06:[address] (AP) ABDOMEN/PELVIS (P): RUSIGRIDBraulio VALENZUELA [id number] -[id number] F Exm Date: AUG 14, 2022@18:22 Req Phys: ALEK TAN Loc: [facility] EMERGENCY DEPT WALK-IN (Re Img Loc: CT IMAGING Service: Unknown Screen: Patient answered no (Case [id number] COMPLETE) CT (AP) ABDOMEN/PELVIS W CONTRAST(CT Detailed) CPT:15316 Contrast Media : Non-ionic Iodinated Reason for [...] COMMENTS AVAILABLE...Refer to Interim Lab Report. Allergies: ([place] only) TETRACYCLINE (July 30, 2014) VENLAFAXINE (July 30, 2014) OXYCODONE (July 30, 2014) PREDNISONE (July 30, 2014) QUETIAPINE (July 30, 2014) TRAMADOL (July 30, 2014) TRAZODONE (July 30, 2014) To see allergies from all MD locations click Reports tab>Remote Data>All Available Sites>Clinical Reports>Allergies. Report Status: Verified Date Reported: AUG 14, 2022 Date Verified: AUG 14, 2022 Damage Appraiser E-Sig: Report: EXAMINATION: CT (AP) ABDOMEN/PELVIS W CONTRAST [PRINTSET] Clinical History: abdominal pain, elevated WBC. Comparison: No priors available Technique: Axial CT scanning of the abdomen and pelvis was performed from the lung bases through the symphysis pubis without administration of oral and during administration of intravenous contrast. The study was protocoled and supervised at the local MD facility. 777 images were subsequently received by the MD National Teleradiology Program (NTP) for interpretation. Total [...] as described READING PHYSICIAN: Julien Mena MD -[phone] 08/14/2022 21:03 EDT [facility] National Teleradiology Program [phone] (For Medical Practitioner Use Only) Attention Patients / Veterans: If you have questions or concerns about these test results, please contact your ordering provider or primary care team. Primary Interpreting Staff: RADIOLOGY,OUTSIDE SERVICE, Staff Physician / RADIOLOGY,OUTSIDE SERVICE [facility] Pathology Reports: +/- 30 days [...] the Encounter. The data comes from all MD treatment facilities. Date/Time Pathology Report Provider Source Aug 14, 2022 08:24 PM LR MICROBIOLOGY RE PORT: Reporting Lab: [facility] [CLIA# [id number]] [place] [address] Accession [UID]: [id number] [[id number]] Received: Aug 14, 2022@20:24 Collection sample: URINE Collection date: Aug 14, 2022 20:24 Provider: ALEK TAN Comment on specimen: RECEIVED IN STERILE CUP Test(s) ordered: CULTURE & SUSCEPTIBILITY...... completed: Aug 16, 2022 * BACTERIOLOGY FINAL REPORT => Aug 16, 2022 12:40 TECH CODE: [id number] CULTURE RESULTS: 1. SMALL, AEROBIC GRAM POSITIVE RODS - Quantity: >100,000 Comment: No susceptibility testing performed. 2. LESS THAN 10,000 OTHER ORGANISM Bacteriology Remark(s): THIS REPORT IS FINAL =--=--=--=--=--=--=--=--=--=--=--=- -=--=--=--=--=--=--=--=--=--=--=--= --=--=-- Performing Laboratory: Bacteriology Report Performed By: [facility] [CLIA# [id number]] [place] [address] [facility] August 02, 2022 04:00 PM LR MICROBIOLOGY RE PORT: Reporting Lab: [facility] [CLIA# [id number]] [place] [address] Accession [UID]: [id number] [[id number]] Received: August 02, 2022@16:20 Collection sample: WOUND Collection date: August 02, 2022 16:00 Provider: ROBBY ABBOTT Comment on specimen: SCALP WOUND, SWAB RECEIVED Test(s) ordered: GRAM STAIN.................... completed: August 02, 2022 17:17 CULTURE & SUSCEPTIBILITY...... completed: August 04, 2022 * BACTERIOLOGY FINAL REPORT => August 04, 2022 12:52 TECH CODE: [id number] GRAM STAIN: DIRECT SMEAR of specimen before culturing shows: NO PMNS SEEN 1+ EPITHELIAL CELLS NO ORGANISMS SEEN CULTURE PENDING CULTURE RESULTS: STAPHYLOCOCCUS EPIDERMIDIS - Quantity: 2+ Comment: No susceptibility testing performed. Bacteriology Remark(s): THIS REPORT IS FINAL =--=--=--=--=--=--=--=--=--=--=--=- -=--=--=--=--=--=--=--=--=--=--=--= --=--=-- Performing Laboratory: Bacteriology Report Performed By: [facility] [CLIA# [id number]] [place] [address] [facility] Encounter Notes: All associated encounter notes This section contains the clinical notes associated to the Encounter. Date/Time Encounter Note(s) Provider Source Aug 14, 2022 08:29 PM NURSING EMERGENCY DEPT NOTE: LOCAL TITLE: EMERGENCY DEPT NURSING NOTE STANDARD TITLE: NURSING EMERGENCY DEPT NOTE DATE OF NOTE: AUG 14, 2022@20:29 ENTRY DATE: AUG 14, 2022@20:29:13 AUTHOR: FIONA RUIZ COSIGNER: URGENCY: STATUS: COMPLETED Emergency Department Discharge Education Personal Protective Equipment (PPE): Patient was in mask on arrival, Patient was in mask on arrival, patient remained masked for entire visit, RN used PPE during every encounter with the patient The patient was given education on the following: pneumonia EDUCATION/TEACH BACK: [facility] discharge instructions have been reviewed with Patient AND had an opportunity to ask questions, has verbalized understanding, have received a copy of the [facility] instructions EDUCATIONAL LEVEL OF UNDERSTANDING: Patient was ready and receptive to education. BARRIERS TO LEARNING: No barriers identified Accompanied by: Self Mode of Transportation: Drive self EXIT ADDITIONAL EDUCATION GIVE: home meds in hand Discharged to: Home Patient alert and oriented. IV dc'd- catheter intact. Refused discharge vitals. /es/ FIONA RUIZ RN REGISTERED NURSE Signed: 08/14/2022 20:31 FIONA RUIZ [facility] Aug 14, 2022 08:18 PM EMERGENCY DEPT EDUCATION NOTE: LOCAL TITLE: EMERGENCY DEPT DISCHARGE INSTRUCTIONS STANDARD TITLE: EMERGENCY DEPT EDUCATION NOTE DATE OF NOTE: AUG 14, 2022@20:18:53 ENTRY DATE: AUG 14, 2022@20:18:53 AUTHOR: ALEK TAN EXP COSIGNER: URGENCY: STATUS: COMPLETED DISCHARGE INSTRUCTIONS [...] instructions below. You were treated today by Alek Tan MD. Special Information This Information Is About Your Follow Up Care Call your Primary Care Team if you have any problems or concerns. You can reach them by calling . Future Appointments 08/18/2022 at 9:00am [facility] MAMMOGRAPHY 08/25/2022 at 1:00pm D EYE OPTOM G 08/31/2022 at 9:00am [facility] PACT IRIS WH 4D 09/02/2022 at 10:20am [facility] DERM URGENT This Information Is About Your Illness and Diagnosis PNEUMONIA Pneumonia is an infection in one or both lungs. Our lungs contain airways that get smaller and smaller, like branches on a tree. At the end of each tiny branch (airway) are many small air sacs called alveoli. The alveoli resemble balloons. In people with healthy lungs, the airways are clear and open. Each tiny air sac fills up with air when you inhale (breathe in). With pneumonia, the alveoli are filled with pus and fluid. This makes breathing painful. It also limits the amount of oxygen available to your body. This topic addresses community-acquired pneumonia (CAP). CAP occurs in people who develop pneumonia in their daily life, not from being in the hospital. Medicines used to treat CAP are often different from medicines used to treat people with hospital-acquired pneumonia. (The organisms that cause hospital-acquired pneumonia are more likely to be resistant to antibiotics. This means the organisms are harder to kill.) CAP can range from being mild to being severe. Some people may call mild forms of community-acquired pneumonia walking pneumonia because they don't feel very sick and can still do much of their daily activities. What causes pneumonia? Pneumonia has a number of causes: bacteria, viruses, mycoplasma, fungi, and various chemicals. Bacterial pneumonia may occur on its own or as a complication of a cold or the respiratory flu. In people with a weakened immune system, bacteria that are normally found in the mouth and nose can multiply and travel to the lungs, causing an infection. The most common bacteria that cause pneumonia are streptococcus (pneumococcus). A vaccine is available to prevent this type of pneumonia. Viral pneumonia is caused by a virus, often from the influenza virus. Most respiratory viruses attack the nose and throat, though some can invade the lungs. The viruses then multiply. The lungs don't usually fill with fluid with this type of pneumonia. This is a serious form of pneumonia for women and for people who have heart and lung conditions. People with viral pneumonia are also at risk of developing bacterial pneumonia. You are more likely to get pneumonia if your body is worn down, such as from fighting an infection. People are at a higher risk of pneumonia if they: -have recently had a cold or the flu -have recently had surgery -have a long-term or chronic disease, such as cystic fibrosis, asthma, diabetes, COPD, or heart disease -are taking certain medicines, such as corticosteroids or chemotherapy -have an illness that makes it hard to fight infections, such as cancer or AIDS -have had a stroke or seizure, or have swallowing problems -smoke or live with a smoker How does my health care provider know I have pneumonia? Signs and symptoms: -shortness of breath, fast breathing, and fast heart rate -cough that brings up greenish, yellow, or bloody mucus -fever and chills -chest or back pain, which may feel like a stabbing pain -weakness, tiredness What tests may be done? -physical exam and medical history -chest x-ray to identify inflammation in your lungs -lab tests: Certain tests may be done to find out what type of organism is causing your symptoms. -pulse oximetry: This device measures how much oxygen is moving through your blood. How can pneumonia affect my health? What are the complications or risks? When you have pneumonia, it is harder for oxygen to get into your blood. If there is too little oxygen in your blood, your body cells don't work well. There is also a risk of infection spreading throughout your body. This can be quite severe, and can cause . What is the usual treatment? The goal of treatment is to cure the infection and prevent complications. Most people with community-acquired pneumonia are treated with antibiotics. Many are able to be treated at home by resting and taking their antibiotic medicine by mouth. Those that have more serious cases of pneumonia may require treatment in the hospital. Treatment may include antibiotics given through an IV in the vein; monitoring of breathing rate, heart rate, temperature, and blood oxygen levels; and extra oxygen by nose tube or face mask. People with severe cases of pneumonia may need the help of a breathing machine, called a ventilator. When you go home, you will likely still have some symptoms: -cough -low energy level -trouble sleeping -lack of appetite Be patient, all of these will slowly improve over the next couple of weeks. Most people start to feel better within 3 to 5 days of taking their medicine, although a cough from pneumonia can last weeks or months after treatment. Please follow these instructions: -General: -Limit ifqw-yw-adtd contact with family members or visitors. Most types of pneumonias are spread by contact with nasal or mouth secretions (e.g. through coughing, sneezing, or touching infected tissues without washing one's hands). Cover your mouth when coughing or sneezing by doing so into your sleeve near your inner elbow. -To protect yourself, ask visitors who have a cold to wear a mask around you. -Do not take cough syrup or cough suppressants unless instructed by your health care provider. Coughing helps clear the mucus from your lungs. When you cough, cough into a tissue. Throw the tissue into the garbage, then wash your hands. -Do not smoke. If you need help quitting, talk with your health care provider. Do not allow others to smoke around you. -If you were prescribed an antibiotic medicine, take it for the full length of treatment. This is important to make sure the infection completely goes away. -Talk to your health care provider about taking nonsteroidal anti-inflammatory medicines (such as ibuprofen, Motrin, Advil, or naproxen) or acetaminophen (Tylenol) for pain or fever. -To help loosen the mucus in your lungs: -Breath in warm, moist air. Fill a humidifier with warm water and breathe in the mist. You can also try placing a warm, wet washcloth loosely over your nose and mouth. Breathe in the humid air. -Take a few deep breaths 2 or 3 times every hour to help open up your lungs. -Tap your chest gently with your hand a few times a day. -Lie down for a minute or so with your head lower than your chest. Do this several times a day. -Activity: -Get plenty of rest. If you have trouble sleeping at night, take naps during the day. Arrange for someone to help you around the house or with child care center administrator. -If you are working, you'll need to take some time off of work in order to recover. -Gradually return to your normal activities, as you are able. Take frequent rest breaks throughout the day until you are well. -Diet: -Eat a healthy, well-balanced diet. -If it's okay with your health care provider, drink extra liquids to help loosen secretions and cough up phlegm. Do not drink alcohol when you have pneumonia. -If you will be going home with oxygen (your oxygen supplier can help with tips for using oxygen safely): -Never change how much oxygen is flowing without asking your health care provider. -Always have a back-up supply of oxygen that is accessible to you. -Never let anyone smoke near your tank! -Prevent pneumonia in the future: -Wash your hands often with soap and water, even when you are well. -Try to stay healthy by eating well, staying active, and getting 7 to 9 hours of sleep every night. -Make sure to get a flu shot every year. Ask your health care provider if you also need a pneumonia vaccine. -If you smoke, try to quit. -Manage or control any health conditions you may have, such as diabetes, asthma, or COPD. Contact your health care provider immediately if you are struggling to breathe. Contact your health care provider as soon as possible if: -you are having a lot of headaches. -you feel more tired than usual, feel confused, or feel feverish. -you notice that your cough brings up phlegm that has darkened in color or contains blood. -your fingertips turn blue. -you have any new or bothersome symptoms. [...] have your Medication List reviewed. Pending Medications AMOXICILLIN 500MG CAP \ Sig: TAKE TWO CAPSULES BY MOUTH THREE TIMES A DAY\Indication: pneumonia FLUOXETINE HCL 20MG CAP \ Sig: TAKE TWO CAPSULES BY MOUTH EVERY DAY\Indication: FOR DEPRESSION Active Medications ACETAMINOPHEN TAB 1000MG MOUTH THREE [...] TAB 50MG MOUTH AT BEDTIME (Non-VA Medication) SULFAMETHOXAZOLE 800/TRIMETH 160MG TAB TAKE 1 TABLET BY MOUTH TWICE A DAY FOR 5 DAYS FOR FOLLICULITIS, SINUSITIS TIZANIDINE HCL 4MG TAB TAKE ONE-HALF TABLET [...] YOU ARE EXPERIENCING A MEDICAL EMERGENCY CALL [phone] OR GO TO THE NEAREST EMERGENCY ROOM /jose armando/ ALEK TAN [facility] FUNDRAISER/ELIECER ROMANO Signed: 08/14/2022 20:18 ALEK TAN [facility] Aug 14, 2022 06:23 PM RADIOLOGY NOTE: LOCAL TITLE: RADIOLOGY CONTRAST NOTE STANDARD TITLE: RADIOLOGY NOTE DATE OF NOTE: AUG 14, 2022@18:23 ENTRY DATE: AUG 14, 2022@18:23:42 AUTHOR: KELLEY NANCE EXP COSIGNER: URGENCY: STATUS: COMPLETED Exam Preparation: Consent obtained: Verbal informed consent Yes Contrast Administration: Adminstered IV contrast per CT protocol/MRI protocol IV non-ionic iodinated contrast media with saline flush Omnipaque 350 100 ml /es/ KELLEY NANCE, RT(R)(CT) DIAGNOSTIC ACCOUNTING CLERK Signed: 08/14/2022 18:24 KELLEY NANCE [facility] Aug 14, 2022 06:05 PM PHYSICIAN EMERGENCY DEPT NOTE: LOCAL TITLE: EMERGENCY DEPT NOTE STANDARD TITLE: PHYSICIAN EMERGENCY DEPT NOTE DATE OF NOTE: AUG 14, 2022@18:05 ENTRY DATE: AUG 14, 2022@18:05:05 AUTHOR: ALEK TAN EXP COSIGNER: URGENCY: STATUS: COMPLETED EMERGENCY DEPT NOTE Has ADDENDA Personal Protective Equipment (PPE): Patient was in mask on arrival, MD/PA/LEAD SOFTWARE ENGINEER used PPE during every encounter with the patient Nurse's note reviewed. Chief Complaint: The patient is a 51 y/o FEMALE complaining of: abdominal pain TDAP/TD Immunizations No data available for: TETANUS TOXOID, ADSORBED TETANUS TOXOID, NOT ADSORBED TETANUS TOXOID, UNSPECIFIED FORMULATION TDAP Covid-19 Immunizations Immunization Series Date Facility Reaction Info COVID-19 (PFIZER), MRNA, LNP-S, P* 1 06/04/2020 [facility] COVID-19 (PFIZER), MRNA, LNP-S, P* 2 06/30/2020 [facility] COVID-19 (PFIZER), MRNA, LNP-S, P* 3 05/26/2021 [facility] <C> COVID-19 (PFIZER), MRNA, LNP-S, B* B 04/29/2022 [facility] <C> See the Detailed Immunizations Health Summary Component[DIM] for Comments History of present illness: 51 year old with PMHx of depression and anxiety who presents with diffuse abdomianl pain. Notes pain over the past few days and change in smell of stools as though something is inside me. No blood in stools. No vomitting. No f/c. No dysuria. Has cough, worse of late, with some green sputum. Also notes generalized fatigue and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
--- OUTSIDE RECORDS SUMMARY | 2023-07-06 21:09 | XMS_ITS | Encounter Summary ---
Author Name [facility] [employer] [employer] Organization [facility] Address [address] [place] [address] Support Name Relationship Address Phone RUDIAZ Next of Kin [address] KAYLA BOND [phone] DIAZ VENCES Emergency Contact [address] [address] KAYLA BOND [phone] Insurance Providers: All historical and current Section [...] Patient's Relationship to Policy [facility] ([facility]) MEDICARE ADVANTAGE MCR ([facility]) Jan 12, 2016 [id number] [phone] SONIA VENCES PATIENT [facility] ([facility]) MEDICARE ADVANTAGE MCR ([facility]) Mar 13, 2020 [id number] SONIA VENCES PATIENT [facility] ([facility]) MEDICARE ADVANTAGE MCR ([facility]) Mar 13, 2020 [id number] [phone] RU,SONIA CHARLESIFER PATIENT [facility] ([facility]) MEDICARE ADVANTAGE MCR ([facility]) Mar 13, 2020 [id number] SONIA VENCES PATIENT [facility] ([facility]) MEDICARE ADVANTAGE MCR ([facility]) Mar 13, 2020 [id number] SONIA VENCES PATIENT [facility] ([facility]) MEDICARE ADVANTAGE MEDIC MARY ELLEN BRADLEY Mar 13, 2019 [id number] SONIA VENCES PATIENT Selected Encounter This section includes the information on record at [facility] for the Encounter. Date/Time Encounter Type Encounter Description Reason Pro vider Source Sep 06, 2022 04:25 PM Outpatient Encounter CLINICAL PHARMACY [facility] Encounter Template Text not used by [facility] Plan of Treatment: Future Appointments (+ 6 months) and Future Tests (+/- 45 days) The Plan of Treatment section includes future care activities for the patient from all [place] treatmentfacilities. This section includes future appointments and future orders which are active, pending or scheduled. Future Appointments This section includes appointments that were scheduled to occur 6 months from the date of the Encounter, up to a maximum of 20 appointments. The data comes from all [place] treatment facilities. Appointment Date/Time Appointment Type Appointme nt Facility Name Sep 12, 2022 02:59 PM AMBULATORY - NONE [facility] Sep 27, 2022 02:00 PM AMBULATORY - MEDICINE [facility] Sep 27, 2022 03:45 PM AMBULATORY - NONE [facility] Oct 04, 2022 06:29 PM AMBULATORY - MEDICINE [facility] Oct 12, 2022 06:00 PM AMBULATORY - NONE [facility] Oct 31, 2022 12:09 PM AMBULATORY - NONE [facility] Nov 01, 2022 03:11 PM AMBULATORY - NONE [facility] Nov 09, 2022 03:30 PM AMBULATORY - [place] [facility] Nov 22, 2022 02:00 PM AMBULATORY - NONE [facility] Nov 28, 2022 02:21 PM AMBULATORY - NONE [facility] Dec 05, 2022 12:42 PM AMBULATORY - NONE [facility] Dec 16, 2022 05:58 PM AMBULATORY - NONE [facility] Jan 19, 2023 09:00 AM AMBULATORY - [place] [facility] Jan 19, 2023 09:30 AM AMBULATORY [place] [facility] Feb 27, 2023 09:16 PM AMBULATORY - NONE [facility] Lab Results: +/- 30 days of the encounter This section includes the Chemistry and Hematology Lab Results on record with [facility] for the patient. Radiology Reports and Pathology Reports are provided separately, in subsequent sections. Lab Results This section contains the Chemistry/Hematology Results that were resulted 30 days before or 30 daysafter the date of the Encounter. Date/Time Source Result Type Result - Unit Interpretation Reference Range Comment Sep 27, 2022 04:[address] [facility] C.TRACHOMATIS/N.GONORRHEA DNA Specimen Type: URINE No comment entered. Ordering Provider: JOSE SHAH SA Report Released Date/Time: Sep 27, 2022 03:02 PM Reporting Lab: [facility] [address] Performing Lab: [facility] [address] C.TRACHOMATIS DNA NOT DETECTED N.GONORRHEA DNA NOT DETECTED CT/NG INTERPRETATION Infectious agent DNA is not detected by this assay Sep 27, 2022 04:[address] [facility] C.TRACHOMATIS/N.GONORROEAE,RECTAL Specimen Type: RECTAL Comment: Specimen too short for repeat testing Cancellation reported to: Diya Rodas RN at 0910-03-22,TTP Test not performed. Initial testing necessitated a repeat, but there was insufficient sample to perform repeat. Test Performed by [employer], [employer], [address] [place] [address] Tigre Valdovinos M.D., Ph.D., Director of Laboratories , CLIA [id number] Ordering Provider: JOSE SHAH SA Report Released Date/Time: Sep 27, 2022 03:02 PM Reporting Lab: [facility] [address] Performing Lab: [address] .C TRACHOMATIS,RNA TNP .N GONORROEAE,RNA TNP Sep 27, 2022 04:[address] [facility] C.TRACHOMATIS/N.GONORROEAE,THROAT Specimen Type: THROAT Comment: Methodology: Tafe Registrar Mediated Amplification(T MA) to detect RNA. The analytical performance characteristics of this assay have been determined by [employer] [place], [place]. The modifications have not been cleared or approved by the FDA. This assay has been validated pursuant to the CLIA regulations and is used for clinical purposes. Test Performed by [employer], [address] [place] [address] Tigre Valdovinos M.D., Ph.D., Director of Laboratories , [facility] [id number] Ordering Provider: JOSE SHAH SA Report Released Date/Time: Sep 27, 2022 03:02 PM Reporting Lab: [facility] [address] Performing Lab: [address] .C TRACHOMATIS,RNA Not Detected See_Commen t .N GONORROEAE,RNA Not Detected See_Commen t Sep 27, 2022 03:[address] [facility] HIV AG/AB SCREEN Specimen Type: SERUM No comment entered. Ordering Provider: JOSE SHAH SA Report Released Date/Time: Sep 27, 2022 03:02 PM Reporting Lab: [facility] [address] Performing Lab: [facility] [address] HIV AG/AB SCREEN NEGATIVE See_Commen t Sep 27, 2022 03:[address] [facility] ANTI-HEP C(EIA) Specimen Type: SERUM No comment entered. Ordering Provider: JOSE SHAH SA Report Released Date/Time: Sep 27, 2022 03:02 PM Reporting Lab: [facility] [address] Performing Lab: [facility] [address] ANTI-HEP C(EIA) NEGATIVE See_ Commen t Sep 27, 2022 03:[address] [facility] SYPHILIS ANTIBODY Specimen Type: SERUM No comment entered. Ordering Provider: JOSE SHAH SA Report Released Date/Time: Sep 27, 2022 03:02 PM Reporting Lab: [facility] [address] Performing Lab: [facility] [address] SYPHILIS ANTIBODY NEGATIVE Aug 14, 2022 06:[address] [facility] POC CREATININE Specimen Type: BLOOD No comment entered. Ordering Provider: CHARLIE GRECO Report Released Date/Time: Aug 14, 2022 06:36 PM Reporting Lab: [facility] [address] Performing Lab: [facility] [address] POC CREATININE 0.7 0.6-1.3 Aug 14, 2022 06:[address] [facility] EXTRA GOLD GEL TUBE Specimen Type: SERUM No comment entered. Ordering Provider: CHARLIE GRECO Report Released Date/Time: Aug 14, 2022 06:12 PM Reporting Lab: [facility] [address] Performing Lab: [facility] [address] EXTRA GOLD GEL TUBE RECEIVED Aug 14, 2022 06:[address] [facility] LIPASE Specimen Type: PLASMA No comment entered. Ordering Provider: CHARLIE GRECO Report Released Date/Time: Aug 14, 2022 06:01 PM Reporting Lab: [facility] [address] Performing Lab: [facility] [address] LIPASE 32 See_Commen t Aug 14, 2022 06:[address] [facility] HCG, QUAL Specimen Type: URINE No comment entered. Ordering Provider: CHARLIE GRECO Report Released Date/Time: Aug 14, 2022 06:01 PM Reporting Lab: [facility] [address] Performing Lab: [facility] [address] HCG, QUAL NEGATIVE See_Commen t Aug 14, 2022 06:[address] [facility] COMPREHENSIVE METABOLIC PANEL+MG Specimen Type: PLASMA No comment entered. Ordering Provider: CHARLIE GRECO Report Released Date/Time: Aug 14, 2022 06:01 PM Reporting Lab: [facility] [address] Performing Lab: [facility] [address] CREATININE 0.6 0.5-1.0 UREA NITROGEN 13 7-20 [...] See_Commen t Aug 14, 2022 06:[address] [facility] CBC & DIFF Specimen Type: BLOOD Comment: Automated Differential Performed Ordering Provider: CHARLIE GRECO Report Released Date/Time: Aug 14, 2022 06:01 PM Reporting Lab: [facility] [address] Performing Lab: [facility] [address] WBC 18.70 H 4.0-11.0 RBC 5.41 H [...] 0.08 0-0.1 Aug 14, 2022 06:[address] [facility] URINALYSIS Specimen Type: URINE No comment entered. Ordering Provider: KAILEE AZAR Report Released Date/Time: Aug 14, 2022 06:23 PM Reporting Lab: [facility] [address] Performing Lab: [facility] [address] URINE COLOR YELLOW SPECIFIC GRAVITY 1.028 1.003-1.03 [...] See_Commen t Aug 12, 2022 09:[address] [facility] DRUG SCREEN PANEL,URINE Specimen Type: URINE Comment: Presumptive Positive by screen, results not confirmed. Ordering Provider: SANJU LÓPEZ Report Released Date/Time: Aug 12, 2022 08:52 PM Reporting Lab: [facility] [address] Performing Lab: [facility] [address] BARBITURATES POSITIVE H See_Com men t AMPHETAMINES [...] Pain Height Weight Body Mass Index Source Sep 06, 2022 03:37 PM 98.6 F 76 /min 95/52 mm[Hg] 16 /min 96 % 6 [facility] Social History: Smoking Status (Most current) and Tobacco Use (All prior to encounter date) This section includes the most current, and the historical, smoking and tobacco- related health factors from the [facility] facility where the Encounter took place. Current Smoking Status This section includes the most current smoking, or tobacco-related health factor, from the [facility] facility where the Encounter took place. Date/Time Current Smoking Status Comment Facil ity Jun 17, 2015 07:02 AM FORMER TOBACCO USE >1Y <7Y [facility] Tobacco Use History This section includes a history of the smoking, or tobacco-related health factors, that were collected on or before the date of the Encounter. The data comes from the [facility] facility where the Encounter took place. Date/Time Smoking Status/Tobacco Use Comment F acility July 30, 2014 09:31 AM FORMER TOBACCO USE <1Y [facility] Radiology Reports: +/- 30 days of [...] the Encounter. The data comes from all [place] treatment facilities. Date/Time Radiology Report Provider Source Aug 14, 2022 06:[address] (AP) ABDOMEN/PELVIS (P): APPLE VENCES [id number] [id number] F Exm Date: AUG 14, 2022@18:22 Req Phys: CHARLIE GRECO Loc: [facility] EMERGENCY DEPT WALK-IN (Re Img Loc: CT IMAGING Service: Unknown Screen: Patient answered no (Case [id number] COMPLETE) CT (AP) ABDOMEN/PELVIS W CONTRAST(CT Detailed) CPT:01774 Contrast Media : Non-ionic Iodinated Reason for Study: abdominal pain, elevated WBC Clinical History: [place] IS NOT under investigation for COVID-19 or [...] COMMENTS AVAILABLE...Refer to Interim Lab Report. Allergies: ([place] only) TETRACYCLINE (July 30, 2014) VENLAFAXINE (July 30, 2014) OXYCODONE (July 30, 2014) PREDNISONE (July 30, 2014) QUETIAPINE (July 30, 2014) TRAMADOL (July 30, 2014) TRAZODONE (July 30, 2014) To see allergies from all [facility] locations click Reports tab>Remote Data>All Available Sites>Clinical Reports>Allergies. Report Status: Verified Date Reported: AUG 14, 2022 Date Verified: AUG 14, 2022 [employer] E-Sig: Report: EXAMINATION: CT (AP) ABDOMEN/PELVIS W CONTRAST [PRINTSET] Clinical History: abdominal pain, elevated WBC. Comparison: No priors available Technique: Axial CT scanning of the abdomen and pelvis was performed from the lung bases through the symphysis pubis without administration of oral and during administration of intravenous contrast. The study was protocoled and supervised at the local [place] facility. 777 images were subsequently received by the [place] National Teleradiology Program (NTP) for interpretation. Total [...] as described READING PHYSICIAN: Julien Mena MD -[id number] 08/14/2022 21:03 EDT [facility] National Teleradiology Program [phone] (For Medical Practitioner Use Only) Attention Patients / Veterans: If you have questions or concerns about these test results, please contact your ordering provider or primary care team. Primary Interpreting Staff: RADIOLOGY,OUTSIDE SERVICE, Staff Physician / RADIOLOGY,OUTSIDE SERVICE [facility] Pathology Reports: +/- 30 days of [...] the Encounter. The data comes from all [place] treatment facilities. Date/Time Pathology Report Provider Source Aug 14, 2022 08:24 PM LR MICROBIOLOGY RE PORT: Reporting Lab: [facility] [CLIA# [id number]] [place] [address] Accession [UID]: [id number] [[id number]] Received: Aug 14, 2022@20:24 Collection sample: URINE Collection date: Aug 14, 2022 20:24 Provider: CHARLIE GRECO Comment on specimen: RECEIVED IN STERILE CUP Test(s) ordered: CULTURE & SUSCEPTIBILITY...... completed: Aug 16, 2022 * BACTERIOLOGY FINAL REPORT => Aug 16, 2022 12:40 TECH CODE: [id number] CULTURE RESULTS: 1. SMALL, AEROBIC GRAM POSITIVE RODS - Quantity: >100,000 Comment: No susceptibility testing performed. 2. LESS THAN 10,000 OTHER ORGANISM Bacteriology Remark(s): THIS REPORT IS FINAL =--=--=--=--=--=--=--=--=--=--=--=- -=--=--=--=--=--=--=--=--=--=--=--= --=--=-- Performing Laboratory: Bacteriology Report Performed By: [facility] [CLIA# [id number]] [place] [address] [facility] Encounter Notes: All associated encounter notes This section contains the clinical notes associated to the Encounter. Date/Time Encounter Note(s) Provider Source Sep 06, 2022 04:25 PM EDUCATION NOTE: LOCAL TITLE: EDUCATION MEDICATION INSTRUCTION STANDARD TITLE: EDUCATION NOTE DATE OF NOTE: SEP 06, 2022@16:25 ENTRY DATE: SEP 06, 2022@16:25:05 AUTHOR: SERENITY NGUYỄN EXP COSIGNER: URGENCY: STATUS: COMPLETED MEDICATION EDUCATION PARTICIPANTS: Patient TEACHING STRATEGY: Face to Face READINESS TO LEARN: No barriers identified LEARNING NEEDS/OBJECTIVES Participant(s) indicates readiness to learn and has been instructed on indications, side effects, and directions for use. Participant(s) will receive medication information sheets for medications filled. Education included discussion of the following: New medication(s): Doxycycline PATIENT/FAMILY RESPONSE (OUTCOME): Verbalizes critical information about the topic FOLLOW-UP RECOMMENDED: None needed /jose armando/ SERENITY NGUYỄN PharmD CLINICAL PHARMACIST Signed: 09/06/2022 16:[address] [facility]
--- OUTSIDE RECORDS SUMMARY | 2023-07-06 21:09 | XMS_ITS | Encounter Summary ---
Author Name [employer] [facility] [employer] Organization [facility] Address [address] [place] [address] Support Name Relationship Address Phone RUDIAZ Next of Kin [phone] [address]AGG [phone] RU DIAZ Emergency Contact [address] [address]ONE [phone] Insurance Providers: All historical and current Section [...] Patient's Relationship to Policy [facility] ([facility] MEDICARE ADVANTAGE MCR ([facility]) Jan 12, 2016 [id number] [phone] RU,SONIA NNIFER PATIENT [facility] (WNR) MEDICARE ADVANTAGE MCR (R) Mar 13, 2020 [id number] RU,SONIA NNIFER PATIENT [facility] (WNR) MEDICARE [facility] (R) Mar 13, 2020 [id number] RU,SONIA NNIE PATIENT [facility] (WNR) MEDICARE ADVANTAGE MCR (WNR) Mar 13, 2020 [id number] [phone] RU,JE NNIFER PATIENT [facility] (WNR) MEDICARE ADVANTAGE MCR (WNR) Mar 13, 2020 [id number] RU,JE NNIFER PATIENT [facility] (WNR) MEDICARE ADVANTAGE MEDIC ARE NATHEN BRADLEY Mar 13, 2019 [id number] SONIA VENCES PATIENT Selected Encounter This section includes the information on record at [place] for the Encounter. Date/Time Encounter Type Encounter Description Reason Provider Source Sep 06, 2022 03:32 PM EMERGENCY DEPT VISIT LOW [facility] EMERGENCY DEPT ICD-10-CM L03.90 Cellulitis, unspecified LV DALY IHBraulio Encounter Template Text not used by [place] Assessments - Encounter Diagnoses This section includes the primary and secondary diagnoses documented for the Encounter. Date/Time Primary/Secondary Diagnosis Diagnosis Name Provider Source Sep 06, 2022 04:26 PM PRIMARY Cellulitis, unspecified LV DALY [facility] Plan of Treatment: Future Appointments (+ 6 months) and Future Tests (+/- 45 days) The Plan of Treatment section includes future care activities for the patient from all [place] treatmentfacilities. This section includes future appointments and future orders which are active, pending or scheduled. Future Appointments This section includes appointments that were scheduled to occur 6 months from the date of the Encounter, up to a maximum of 20 appointments. The data comes from all [place] treatment facilities. Appointment Date/Time Appointment Type Appointme nt Facility Name Sep 12, 2022 02:59 PM AMBULATORY - NONE [facility] Sep 27, 2022 02:00 PM AMBULATORY - MEDICINE [place] [facility] [facility] Sep 27, 2022 03:45 PM AMBULATORY - NONE [facility] Oct 04, 2022 06:29 PM AMBULATORY - MEDICINE [facility] Oct 12, 2022 06:00 PM AMBULATORY - NONE [facility] Oct 31, 2022 12:09 PM AMBULATORY - NONE [facility] [facility] Nov 01, 2022 03:11 PM AMBULATORY - NONE [facility] Nov 09, 2022 03:30 PM AMBULATORY - [place]RY [place] [facility] Nov 22, 2022 02:00 PM AMBULATORY - NONE [facility] Nov 28, 2022 02:21 PM AMBULATORY - NONE [facility] [facility] Dec 05, 2022 12:42 PM AMBULATORY - NONE [facility] Dec 16, 2022 05:58 PM AMBULATORY - NONE [facility] Jan 19, 2023 09:00 AM AMBULATORY [place] [facility] [facility] Jan 19, 2023 09:30 AM AMBULATORY - PSYCHIATRY [facility] Feb 27, 2023 09:16 PM AMBULATORY - NONE [facility] Lab Results: +/- 30 days of the encounter This section includes the Chemistry and Hematology Lab Results on record with [place] for the patient. Radiology Reports and Pathology Reports are provided separately, in subsequent sections. Lab Results This section contains the Chemistry/Hematology Results that were resulted 30 days before or 30 daysafter the date of the Encounter. Date/Time Source Result Type Result - Unit Interpretation Reference Range Comment Sep 27, 2022 04:[address] [facility] C.TRACHOMATIS/N.GONORRHEA DNA Specimen Type: URINE No comment entered. Ordering Provider: JOSE SHAH SA Report Released Date/Time: Sep 27, 2022 03:02 PM Reporting Lab: [facility] [address] Performing Lab: [facility] [address] C.TRACHOMATIS DNA NOT DETECTED N.GONORRHEA DNA NOT DETECTED CT/NG INTERPRETATION Infectious agent DNA is not detected by this assay Sep 27, 2022 04:[address] [facility] C.TRACHOMATIS/N.GONORROEAE,RECTAL Specimen Type: RECTAL Comment: Specimen too short for repeat testing [place]ancellation [place]: [place] [address]-03-22,TTP Test not performed. Initial testing necessitated a repeat, but there was insufficient sample to perform repeat. Test Performed by [facility], [facility], [address] [place] [address] Tigre Valdovinos M.D., Ph.D., Director of Laboratories , [facility] [id number] Ordering Provider: JOSE SHAH SA Report Released Date/Time: Sep 27, 2022 03:02 PM Reporting Lab: [facility] [address] Performing Lab: [address] .C TRACHOMATIS,RNA TNP .N GONORROEAE,RNA TNP Sep 27, 2022 04:[address] [facility] C.TRACHOMATIS/N.GONORROEAE,THROAT Specimen Type: THROAT Comment: Methodology: Graphic Design Professor Mediated Amplification(T MA) to detect RNA. The analytical performance characteristics of this assay have been determined by [employer] [place], [place]. The modifications have not been cleared or approved by the FDA. This assay has been validated pursuant to the CLIA regulations and is used for clinical purposes. Test Performed by [facility], [facility], [address] [place] [address] Tigre Valdovinos M.D., Ph.D., Director of Laboratories , CLIA [id number] Ordering Provider: JOSE SHAH SA Report Released Date/Time: Sep 27, 2022 03:02 PM Reporting Lab: [facility] [address] Performing Lab: [address] .C TRACHOMATIS,RNA Not Detected See_Commen t .N GONORROEAE,RNA Not Detected See_Commen t Sep 27, 2022 03:[address] [facility] HIV AG/AB SCREEN Specimen Type: SERUM No comment entered. Ordering Provider: JOSE SHAH SA Report Released Date/Time: Sep 27, 2022 03:02 PM Reporting Lab: [facility] [address] Performing Lab: [facility] [address] HIV AG/AB SCREEN NEGATIVE See_Commen t Sep 27, 2022 03:[address] [facility] ANTI-HEP C(EIA) Specimen Type: SERUM No comment entered. Ordering Provider: JOSE SHAH SA Report Released Date/Time: Sep 27, 2022 03:02 PM Reporting Lab: [facility] [address] Performing Lab: [facility] [address] ANTI-HEP C(EIA) NEGATIVE See_ Commen t Sep 27, 2022 03:[address] [facility] SYPHILIS ANTIBODY Specimen Type: SERUM No comment entered. Ordering Provider: JOSE SHAH SA Report Released Date/Time: Sep 27, 2022 03:02 PM Reporting Lab: [facility] [address] Performing Lab: [facility] [address] SYPHILIS ANTIBODY NEGATIVE Aug 14, 2022 06:[address] [facility] POC CREATININE Specimen Type: BLOOD No comment entered. Ordering Provider: CHARLIE GRECO Report Released Date/Time: Aug 14, 2022 06:36 PM Reporting Lab: [place] [id number] Performing Lab: [address] POC CREATININE 0.7 0.6-1.3 Aug 14, 2022 06:[address] [facility] EXTRA GOLD GEL TUBE Specimen Type: SERUM No comment entered. Ordering Provider: CHARLIE GRECO Report Released Date/Time: Aug 14, 2022 06:12 PM Reporting Lab: [facility] [address] Performing Lab: [address] EXTRA GOLD GEL TUBE RECEIVED Aug 14, 2022 06:[address] [facility] LIPASE Specimen Type: PLASMA No comment entered. Ordering Provider: CHARLIE GRECO Report Released Date/Time: Aug 14, 2022 06:01 PM Reporting Lab: [facility] [address] Performing Lab: [facility] [address] LIPASE 32 See_Commen t Aug 14, 2022 06:[address] [facility] HCG, QUAL Specimen Type: URINE No comment entered. Ordering Provider: CHARLIE GRECO Report Released Date/Time: Aug 14, 2022 06:01 PM Reporting Lab: [facility] [address] Performing Lab: [facility] [address] HCG, QUAL NEGATIVE See_Commen t Aug 14, 2022 06:[address] [facility] COMPREHENSIVE METABOLIC PANEL+MG Specimen Type: PLASMA No comment entered. Ordering Provider: CHARLIE GRECO Report Released Date/Time: Aug 14, 2022 06:01 PM Reporting Lab: [facility] [address] Performing Lab: [address] CREATININE 0.6 0.5-1.0 UREA NITROGEN 13 7-20 [...] t Aug 14, 2022 06:[address] [facility] CBC & DIFF Specimen Type: BLOOD Comment: Automated Differential Performed Ordering Provider: CHARLIE GRECO Report Released Date/Time: Aug 14, 2022 06:01 PM Reporting Lab: [facility] [address] Performing Lab: [facility] [address] WBC 18.70 H 4.0-11.0 RBC 5.41 H [...] 0-0.1 Aug 14, 2022 06:[address] [facility] URINALYSIS Specimen Type: URINE No comment entered. Ordering Provider: KAILEE WOOTEN Report Released Date/Time: Aug 14, 2022 06:23 PM Reporting Lab: [facility] [address] Performing Lab: [facility] [address] URINE COLOR YELLOW SPECIFIC GRAVITY 1.028 1.003-1.03 [...] t Aug 12, 2022 09:[address] [facility] DRUG SCREEN PANEL,URINE Specimen Type: URINE Comment: Presumptive Positive by screen, results not confirmed. Ordering Provider: SANJU LÓPEZ Report Released Date/Time: Aug 12, 2022 08:52 PM Reporting Lab: [facility] [address] Performing Lab: [facility] [address] BARBITURATES POSITIVE H See_Com men t AMPHETAMINES [...] 16 /min 96 % 6 [facility] Social History: Smoking Status (Most current) and Tobacco Use (All prior to encounter date) This section includes the most current, and the historical, smoking and tobacco- related health factors from the [place] facility where the Encounter took place. Current Smoking Status This section includes the most current smoking, or tobacco-related health factor, from the [place] facility where the Encounter took place. Date/Time Current Smoking Status Comment Facil ity Jun 17, 2015 07:02 AM FORMER TOBACCO USE >1Y <7Y [facility] Tobacco Use History This section includes a history of the smoking, or tobacco-related health factors, that were collected on or before the date of the Encounter. The data comes from the [place] facility where the Encounter took place. Date/Time Smoking Status/Tobacco Use Comment F acility July 30, 2014 09:31 AM FORMER TOBACCO USE <1Y [facility] Radiology Reports: +/- 30 days of the [...] the Encounter. The data comes from all [place] treatment facilities. Date/Time Radiology Report Provider Source Aug 14, 2022 06:[address] (AP) ABDOMEN/PELVIS (P): APPLE VENCES [id number] [id number] F Exm Date: AUG 14, 2022@18:22 Req Phys: CHARLIE GRECO Loc: [facility] EMERGENCY DEPT WALK-IN (Re Img Loc: CT IMAGING Service: Unknown Screen: Patient answered no (Case [id number] COMPLETE) CT (AP) ABDOMEN/PELVIS W CONTRAST(CT Detailed) CPT:79119 Contrast Media : Non-ionic Iodinated Reason for Study: abdominal pain, elevated WBC Clinical History: [place] IS NOT under investigation for COVID-19 or [...] COMMENTS AVAILABLE...Refer to Interim Lab Report. Allergies: ([place] only) TETRACYCLINE (July 30, 2014) VENLAFAXINE (July 30, 2014) OXYCODONE (July 30, 2014) PREDNISONE (July 30, 2014) QUETIAPINE (July 30, 2014) TRAMADOL (July 30, 2014) TRAZODONE (July 30, 2014) To see allergies from all [facility] locations click Reports tab>Remote Data>All Available Sites>Clinical Reports>Allergies. Report Status: Verified Date Reported: AUG 14, 2022 Date Verified: AUG 14, 2022 Sulfonator Operator E-Sig: Report: EXAMINATION: CT (AP) ABDOMEN/PELVIS W CONTRAST [PRINTSET] Clinical History: abdominal pain, elevated WBC. Comparison: No priors available Technique: Axial CT scanning of the abdomen and pelvis was performed from the lung bases through the symphysis pubis without administration of oral and during administration of intravenous contrast. The study was protocoled and supervised at the local [place] facility. 777 images were subsequently received by the [place] National Teleradiology Program (NTP) for interpretation. Total [...] as described READING PHYSICIAN: Julien Mena MD -[id number] 08/14/2022 21:03 EDT [facility] National Teleradiology Program [phone] (For Medical Practitioner Use Only) Attention Patients / Veterans: If you have questions or concerns about these test results, please contact your ordering provider or primary care team. Primary Interpreting Staff: RADIOLOGY,OUTSIDE SERVICE, Staff Physician / RADIOLOGY,OUTSIDE SERVICE [facility] Pathology Reports: +/- 30 days of the [...] the Encounter. The data comes from all [place] treatment facilities. Date/Time Pathology Report Provider Source Aug 14, 2022 08:24 PM LR MICROBIOLOGY RE PORT: Reporting Lab: [facility] [CLIA# [id number]] [place] [address] Accession [UID]: [id number] [[id number]] Received: Aug 14, 2022@20:24 Collection sample: URINE Collection date: Aug 14, 2022 20:24 Provider: CHARLIE GRECO Comment on specimen: RECEIVED IN STERILE CUP Test(s) ordered: CULTURE & SUSCEPTIBILITY...... completed: Aug 16, 2022 * BACTERIOLOGY FINAL REPORT => Aug 16, 2022 12:40 TECH CODE: [id number] CULTURE RESULTS: 1. SMALL, AEROBIC GRAM POSITIVE RODS - Quantity: >100,000 Comment: No susceptibility testing performed. 2. LESS THAN 10,000 OTHER ORGANISM Bacteriology Remark(s): THIS REPORT IS FINAL =--=--=--=--=--=--=--=--=--=--=--=- -=--=--=--=--=--=--=--=--=--=--=--= --=--=-- Performing Laboratory: Bacteriology Report Performed By: [facility] [CLIA# [id number]] [place] [address] [facility] Encounter Notes: All associated encounter notes This section contains the clinical notes associated to the Encounter. Date/Time Encounter Note(s) Provider Source Sep 06, 2022 04:24 PM NURSING EMERGENCY DEPT NOTE: LOCAL TITLE: EMERGENCY DEPT NURSING NOTE STANDARD TITLE: NURSING EMERGENCY DEPT NOTE DATE OF NOTE: SEP 06, 2022@16:24 ENTRY DATE: SEP 06, 2022@16:24:15 AUTHOR: CIRA ARREAGA COSIGNER: URGENCY: STATUS: COMPLETED Emergency Department Discharge Education Personal Protective Equipment (PPE): Patient was in mask on arrival, patient remained masked for entire visit, RN used PPE during every encounter with the patient, MD/PA/ACUPRESSURE THERAPIST used PPE during every encounter with the patient The patient was given education on the following: EDUCATION/TEACH BACK: [facility] discharge instructions have been reviewed with Patient AND had an opportunity to ask questions, has verbalized understanding, have received a copy of the [facility] instructions EDUCATIONAL LEVEL OF UNDERSTANDING: Patient was ready and receptive to education. BARRIERS TO LEARNING: No barriers identified Accompanied by: Self Mode of Transportation: Drive self EXIT ADDITIONAL EDUCATION GIVE: d/c instructions by dr. wooten Discharged to: Home /khoi ARREAGA RN REGISTERED NURSE Signed: 09/06/2022 16:[address] [facility] Sep 06, 2022 04:22 PM NURSING EMERGENCY DEPT NOTE: LOCAL TITLE: EMERGENCY DEPT NURSING NOTE STANDARD TITLE: NURSING EMERGENCY DEPT NOTE DATE OF NOTE: SEP 06, 2022@16:22 ENTRY DATE: SEP 06, 2022@16:22:34 AUTHOR: CIRA ARREAGA EXP COSIGNER: URGENCY: STATUS: COMPLETED Nursing Focused Assessment: CHIEF COMPLAINT: Allergies/ADR: TETRACYCLINE (July 30, 2014) VENLAFAXINE (July 30, 2014) OXYCODONE (July 30, 2014) PREDNISONE (July 30, 2014) QUETIAPINE (July 30, 2014) TRAMADOL (July 30, 2014) TRAZODONE (July 30, 2014) Additional allergies not listed: Vital Signs * Blood Pressure: 95/52 (09/06/2022 15:37) Heart Rate: 76 (09/06/2022 15:37) Respirations: 16 (09/06/2022 15:37) Temperature: 98.6 F [37.0 C] (09/06/2022 15:37) Pain: 6 (09/06/2022 15:37) Weight: 147 lb [66.68 kg] (08/04/2022 10:23) O2 Sats: 96% (09/06/2022 15:37) Tobacco use: Yes What type of tobacco are you usin/2ppd How often are you using tobacco: Alcohol use: No Any drugs besides what is prescribed or over the counter: Yes What type of drugs are you using: YHC How often are you using drugs: ABUSE/NEGLECT: No evidence of abuse/neglect REVIEW OF SYSTEM-FOCUSED ASSESSMENT Neurological: Alert Respiratory: Quality of breath: Equal and unlabored chest rise and fall /khoi ARREAGA RN REGISTERED NURSE Signed: 09/06/2022 16:[address] [facility] Sep 06, 2022 04:09 PM EMERGENCY DEPT EDUCATION NOTE: LOCAL TITLE: EMERGENCY DEPT DISCHARGE INSTRUCTIONS STANDARD TITLE: EMERGENCY DEPT EDUCATION NOTE DATE OF NOTE: SEP 06, 2022@16:09:21 ENTRY DATE: SEP 06, 2022@16:09:21 AUTHOR: LV DALY COSIGNER: URGENCY: STATUS: COMPLETED DISCHARGE INSTRUCTIONS IMPORTANT: [...] instructions below. You were treated today by BISHNU Hinojosa. Special Information This Information Is About Your Follow Up Care Call your Primary Care Team if you have any problems or concerns. You can reach them by calling . Future Appointments 09/27/2022 at 2:00pm [facility] EPIFANIO MALIK Janette 10/25/2022 at 8:00am [facility] NURSE [id number] 10/25/2022 at 8:30am [facility] PADMINI [id number] This Information Is About Your Illness and Diagnosis CELLULITIS Cellulitis is an infection of the skin and the tissues just under the skin. Cellulitis is not contagious. This means it isn't spread from one person to another. If cellulitis isn't treated, it can become a very serious infection that spreads through the whole body. What causes cellulitis? Cellulitis is caused by bacteria (germs). Usually the skin is a good barrier to keep germs from getting into our bodies, but if there is a break in the skin, even a tiny one, bacteria can get in and cause an infection. Sometimes there is no known break in the skin when cellulitis develops, but some of the common injuries to the skin leading to cellulitis include: -animal or human bites -bug bites -trauma (cuts, scrapes, puncture wounds) -intravenous catheters (IVs) -pins used to fix broken bones Who is at higher risk to get cellulitis? People who: -are very young (infants) or very old -have diabetes -have poor circulation -have leg ulcers -are taking medications that suppress the immune system -are taking steroid medications -have decreased lymph drainage after certain kinds of surgery -have recently had surgery or dental work What are the signs and symptoms of cellulitis? -redness and swelling of the skin -pain at the area that is infected -warmth of the area that is infected -fever and chills -feeling generally sick -swollen glands -a red streak going from the area of cellulitis toward the heart How does the health care provider know I have cellulitis? -by examining you and talking with you -by doing blood tests to check white blood cell count and to check for infection in the blood How will my cellulitis be treated? -If the cellulitis is mild, you may be treated at home. -If the cellulitis is severe, you may need to be in the hospital. -You will be given antibiotics, either by mouth or in an IV. -You may receive medications for pain. -The area that is infected will be raised on pillows, if possible. -You will need to rest in bed. Please follow these instructions: -Keep taking your antibiotics until they are gone, even if you feel better. -Keep all follow-up appointments. -Rest until your cellulitis is healed. -Keep the area raised on pillows as much as possible. -Cleanse the area gently with soap and water once a day unless your health care provider has given you other instructions. -Be aware that the infected area will be more prone to get infected again in the future. See your health care provider right away if you notice any sign of cellulitis coming back after your cellulitis is gone. Contact your health care provider as soon as possible if you have any of the following: -increased pain. -spreading of the redness or swelling. -the area begins to blister. -there is no improvement after taking antibiotics for 2 or more days. -fever or chills. -red streaks (or longer red streaks) from the cellulitis going toward your heart. -any questions or concerns. IMPORTANT MEDICATION INFORMATION -Your medication list includes [...] have your Medication List reviewed. Pending Medications DOXYCYCLINE HYCLATE 100MG TAB \ Sig: TAKE ONE TABLET BY MOUTH TWICE A DAY\Indication: CELLULITIS Active Medications ACETAMINOPHEN TAB 1000MG MOUTH THREE TIMES A DAY (Non-VA Medication) ALBUTEROL 90MCG (CFC-F) 200D ORAL INHL INHALE 1-2 PUFFS BY MOUTH EVERY 4 HOURS NEEDED FOR SHORTNESS OF BREATH SHAKE WELL (FOR IMMEDIATE RELIEF). FOR SHORTNESS OF BREATH AMOXICILLIN 500MG CAP TAKE TWO CAPSULES BY MOUTH THREE TIMES A DAY FOR PNEUMONIA ASPIRIN/CAFFEINE TAB 1 TABLET MOUTH EVERY DAY [...] TAKE ONE TABLET BY MOUTH AT BEDTIME EPINEPHRINE (EQV-EPI-PEN) 0.3MG/0.3ML INJECT 1 PEN DIRECTED NEEDED FOR ANAPHYLACTIC REACTION FEXOFENADINE HCL 180MG TAB TAKE ONE TABLET BY MOUTH EVERY DAY FOR ALLERGIES FLUOXETINE HCL 20MG CAP TAKE TWO CAPSULES BY MOUTH EVERY DAY FOR DEPRESSION FLUTICAS 100/SALMETEROL 50 INHL DISK 60 INHALE [...] LAYER TOPICALLY FOUR TIMES A DAY NEEDED SULFAMETHOXAZOLE 800/TRIMETH 160MG TAB TAKE 1 TABLET BY MOUTH TWICE A DAY Discontinued Medications Medications discontinued in the last 90 days CLONIDINE HCL 0.1MG TAB TAKE ONE TABLET [...] FOR ASTHMA *RINSE MOUTH AFTER EACH USE* MONTELUKAST NA 10MG TAB TAKE ONE TABLET [...] TO THE NEAREST EMERGENCY ROOM /jose armando/ BISHNU HINOJOSA PHYSICIAN LOBBY ATTENDANT Signed: 09/06/2022 16:[address] [facility] Sep 06, 2022 04:08 PM PHYSICIAN EMERGENCY DEPT NOTE: LOCAL TITLE: EMERGENCY DEPT NOTE STANDARD TITLE: PHYSICIAN EMERGENCY DEPT NOTE DATE OF NOTE: SEP 06, 2022@16:08 ENTRY DATE: SEP 06, 2022@16:08:09 AUTHOR: LV DALY EXP COSIGNER: URGENCY: STATUS: COMPLETED Personal Protective Equipment (PPE): RN used PPE during every encounter with the patient, /BISHNU/ACUPRESSURE THERAPIST used PPE during every encounter with the patient Nurse's note reviewed. Chief Complaint: The patient is a 51 y/o FEMALE complaining of: I have staph infection. TDAP/TD Immunizations No data available for: TETANUS TOXOID, ADSORBED TETANUS TOXOID, NOT ADSORBED TETANUS TOXOID, UNSPECIFIED FORMULATION TDAP Covid-19 Immunizations Immunization Series Date Facility Reaction Info COVID-19 (PFIZER), MRNA, LNP-S, P* 1 06/04/2020 [facility] COVID-19 (PFIZER), MRNA, LNP-S, P* 2 06/30/2020 [facility] COVID-19 (PFIZER), MRNA, LNP-S, P* 3 05/26/2021 [facility] <C> COVID-19 (PFIZER), MRNA, LNP-S, B* B 04/29/2022 [facility] <C> See the Detailed Immunizations Health Summary Component[DIM] for Comments History of present illness: 51-year-old with past medical history of mental health and chronic skin /scalp infection came in complaining of exacerbation of her scalp infection for the last couple of weeks. Noticed some red spots weeping some purulent discharge behind the ear as well as on the left side of the skull. Denies any fever chills trauma injury. Patient would like to be treated for staph infection because she had history of staph infection in the past. Allergies: TETRACYCLINE (July 30, 2014) VENLAFAXINE (July [...] episodes, severe, with psychosis - suicide attempt/hospitalization [place] 1991 2. Family history of disorder - Fa depression, HT - sister bipolar, hypothyroidism, type 2 DM - Mo - depression - Mat GF prostate cancer 3. 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 H/O: - - vaginal 5. Acne (SNOMED CT [id number]) 6. Closed fracture of fifth metatarsal bone [...] globus pharyngeus 27. Knee pain (SNOMED CT [id number]) - bilateral, RX hyaluronic and PROTOTYPE SEWER injections 28. health maintenance - 05/28/13 normal [...] methicillin resistant Staphylococcus aureus infection 34. Suicidal ideation (SNOMED CT 6274677) Medications: Active Outpatient Medications (excluding Supplies): Outpatient Medications Status 1) ALBUTEROL 90MCG (CFC-F) 200D ORAL INHL INHALE 1-2 ACTIVE PUFFS BY MOUTH EVERY 4 HOURS NEEDED FOR SHORTNESS OF BREATH SHAKE WELL (FOR IMMEDIATE RELIEF). FOR SHORTNESS OF BREATH 2) AMOXICILLIN 500MG CAP TAKE TWO CAPSULES BY MOUTH ACTIVE THREE TIMES A DAY FOR PNEUMONIA 3) CLINDAMYCIN PHOSPHATE 1% TOP SOLN APPLY TO AFFECTED ACTIVE AREA TOPICALLY TWICE A DAY NEEDED FOR FOLLICULITIS EXTERNAL USE ONLY 4) CLONIDINE HCL 0.1MG TAB TAKE ONE TABLET BY MOUTH ACTIVE TWICE A DAY 5) DIVALPROEX 500MG 24HR (ER) SA TAB TAKE ONE TABLET BY ACTIVE MOUTH AT BEDTIME 6) DOXYCYCLINE HYCLATE 100MG TAB TAKE ONE TABLET BY PENDING MOUTH TWICE A DAY 7) EPINEPHRINE (EQV-EPI-PEN) 0.3MG/0.3ML INJECT 1 PEN ACTIVE DIRECTED NEEDED FOR ANAPHYLACTIC REACTION 8) FEXOFENADINE HCL 180MG TAB TAKE ONE TABLET BY MOUTH ACTIVE EVERY DAY FOR ALLERGIES 9) FLUOXETINE HCL 20MG CAP TAKE TWO CAPSULES BY MOUTH ACTIVE EVERY DAY FOR DEPRESSION 10) FLUTICAS 100/SALMETEROL 50 INHL DISK 60 INHALE 1 PUFF ACTIVE BY INHALATION TWICE A DAY FOR ASTHMA *RINSE MOUTH AFTER EACH USE* 11) FLUTICASONE PROP 50MCG 120D NASAL INHL SPRAY 2 SPRAYS ACTIVE IN EACH NOSTRIL EVERY DAY FOR ALLERGIES 12) GABAPENTIN 300MG CAP TAKE THREE CAPSULES BY MOUTH ACTIVE TWICE A DAY FOR PAIN AND NUMBNESS 13) KETOCONAZOLE 2% SHAMPOO SHAMPOO SCALP TOPICALLY 3 ACTIVE TIMES WEEKLY SCALP INFECTION *LATHER FOR 5 MINUTES THEN RINSE* 14) LEVOTHYROXINE NA (SYNTHROID) 112MCG TAB TAKE ONE ACTIVE TABLET BY MOUTH EVERY DAY FOR THYROID 15) MECLIZINE HCL 25MG CHEW TAB CHEW ONE TABLET BY MOUTH ACTIVE TWICE A DAY NEEDED FOR MIGRAINE ASSOCIATED DIZZINESS -MAY BE CHEWED OR SWALLOWED 16) MELATONIN 3MG CAP/TAB TAKE 3 TAB (9 MG) 3MG BY MOUTH ACTIVE AT BEDTIME FOR SLEEP FOR SLEEP 17) MONTELUKAST NA 10MG TAB TAKE ONE TABLET BY MOUTH ACTIVE EVERY EVENING FOR ASTHMA 18) SULFAMETHOXAZOLE 800/TRIMETH 160MG TAB TAKE 1 TABLET ACTIVE BY MOUTH TWICE A DAY FOR 5 DAYS FOR FOLLICULITIS, SINUSITIS 19) TIZANIDINE HCL 4MG TAB TAKE ONE-HALF TABLET [...] 50MG TAB 50MG MOUTH AT BEDTIME ACTIVE 26 Total Medications Physical Exam: BP: 95/52 (09/06/2022 15:37) P: 76 (09/06/2022 15:37) R: 16 (09/06/2022 15:37) T: 98.6 F [37.0 C] (09/06/2022 15:37) O2 Sats: 96% (09/06/2022 15:37) General: NAD Skin: There are few red spots with some scab as well as cover with purulent discharge without any erythema or swelling surrounding. No lymphadenopathy noted in the neck or behind the ears. Neck: no JVD Eye: Anicteric ENT: oropharynx clear ED Course/Medical Decision Making/Assessment: CPRS Notes/Labs Reviewed for Patient Encounter: Emergency department triage, emergency department nursing note, Diagnosis and Plan: Cellulitis: -Doxycycline on demand follow-up with PCP - Disposition: // BISHNU HINOJOSA PHYSICIAN LOBBY ATTENDANT Signed: 09/06/2022 16:[address] [facility] Sep 06, 2022 03:38 PM NURSING EMERGENCY DEPT TRIAGE NOTE: LOCAL TITLE: EMERGENCY DEPARTMENT NURSING TRIAGE NOTE STANDARD TITLE: NURSING EMERGENCY DEPT TRIAGE NOTE DATE OF NOTE: SEP 06, 2022@15:38 ENTRY DATE: SEP 06, 2022@15:38:33 AUTHOR: JANAE BARBA EXP COSIGNER: URGENCY: STATUS: COMPLETED Emergency Department/Urgent Care Center Triage Patient age:51 Sex: FEMALE On arrival patient was: AMBULATORY Patient phone number: Allergies: TETRACYCLINE (July 30, 2014) VENLAFAXINE (July 30, 2014) OXYCODONE (July 30, 2014) PREDNISONE (July 30, 2014) QUETIAPINE (July 30, 2014) TRAMADOL (July 30, 2014) TRAZODONE (July 30, 2014) Subjective/Chief Complaint: Pt. reports that she has a scalp infection, and that her prescribed medications are not helping. Pt. reports having a history of + MRSA. Objective: Sores visibile on pt's scalp. The patient is not a fall risk. Vital Signs * Blood Pressure: 95/52 (09/06/2022 15:37) Heart Rate: 76 (09/06/2022 15:37) Respirations: 16 (09/06/2022 15:37) Temperature: 98.6 F [37.0 C] (09/06/2022 15:37) Pain: 6 (09/06/2022 15:37) Weight: 147 lb [66.68 kg] (08/04/2022 10:23) O2 Sats: 96% (09/06/2022 15:37) Emergency Severity Index (BRITTANY) level Level 4 Current Medications: Active Outpatient Medications (including Supplies): Active Outpatient Medications Status 1) ALBUTEROL 90MCG (CFC-F) 200D ORAL INHL INHALE 1-2 ACTIVE PUFFS BY MOUTH EVERY 4 HOURS NEEDED FOR SHORTNESS OF BREATH SHAKE WELL (FOR IMMEDIATE RELIEF). FOR SHORTNESS OF BREATH 2) AMOXICILLIN 500MG CAP TAKE TWO CAPSULES BY MOUTH ACTIVE THREE TIMES A DAY FOR PNEUMONIA 3) CLINDAMYCIN PHOSPHATE 1% TOP SOLN APPLY TO AFFECTED ACTIVE AREA TOPICALLY TWICE A DAY NEEDED FOR FOLLICULITIS EXTERNAL USE ONLY 4) CLONIDINE HCL 0.1MG TAB TAKE ONE TABLET BY MOUTH ACTIVE TWICE A DAY 5) DIVALPROEX 500MG 24HR (ER) SA TAB TAKE ONE TABLET BY ACTIVE MOUTH AT BEDTIME 6) EPINEPHRINE (EQV-EPI-PEN) 0.3MG/0.3ML INJECT 1 PEN ACTIVE DIRECTED NEEDED FOR ANAPHYLACTIC REACTION 7) FEXOFENADINE HCL 180MG TAB TAKE ONE TABLET BY MOUTH ACTIVE EVERY DAY FOR ALLERGIES 8) FLUOXETINE HCL 20MG CAP TAKE TWO CAPSULES BY MOUTH ACTIVE EVERY DAY FOR DEPRESSION 9) FLUTICAS 100/SALMETEROL 50 INHL DISK 60 INHALE 1 PUFF ACTIVE BY INHALATION TWICE A DAY FOR ASTHMA *RINSE MOUTH AFTER EACH USE* 10) FLUTICASONE PROP 50MCG 120D NASAL INHL SPRAY 2 SPRAYS ACTIVE IN EACH NOSTRIL EVERY DAY FOR ALLERGIES 11) GABAPENTIN 300MG CAP TAKE THREE CAPSULES BY MOUTH ACTIVE TWICE A DAY FOR PAIN AND NUMBNESS 12) KETOCONAZOLE 2% SHAMPOO SHAMPOO SCALP TOPICALLY 3 ACTIVE TIMES WEEKLY SCALP INFECTION *LATHER FOR 5 MINUTES THEN RINSE* 13) LEVOTHYROXINE NA (SYNTHROID) 112MCG TAB TAKE ONE ACTIVE TABLET BY MOUTH EVERY DAY FOR THYROID 14) MECLIZINE HCL 25MG CHEW TAB CHEW ONE TABLET BY MOUTH ACTIVE TWICE A DAY NEEDED FOR MIGRAINE ASSOCIATED DIZZINESS -MAY BE CHEWED OR SWALLOWED 15) MELATONIN 3MG CAP/TAB TAKE 3 TAB (9 MG) 3MG BY MOUTH ACTIVE AT BEDTIME FOR SLEEP FOR SLEEP 16) MONTELUKAST NA 10MG TAB TAKE ONE TABLET BY MOUTH ACTIVE EVERY EVENING FOR ASTHMA 17) SULFAMETHOXAZOLE 800/TRIMETH 160MG TAB TAKE 1 TABLET ACTIVE BY MOUTH TWICE A DAY FOR 5 DAYS FOR FOLLICULITIS, SINUSITIS 18) TIZANIDINE HCL 4MG TAB TAKE ONE-HALF TABLET [...] 50MG TAB 50MG MOUTH AT BEDTIME ACTIVE 25 Total Medications Current Problems: Recurrent major depressive episodes, sevFamily history of disorder ([facility] 368030680) Affective personality trait ([facility] 1316409D/O: ([facility] 174330413) Acne ([facility] 09103324) Closed fracture of fifth metatarsal bone ([facility] 60069929) Gastroesophageal reflux disease (SCT 136Anxiety disorder ([facility] 001826811) Tear of medial meniscus of knee (SCT 302Mild persistent asthma ([facility] 352774056) Hypothyroidism (SCT 55533829) Celiac disease (SCT 620399422) Steatosis of liver (SCT 174532887) Chronic low back pain (SCT 365558819) Nicotine dependence ([facility] 12735898) Schizoaffective disorder ([facility] 38906268) Perennial allergic rhinitis (SCT 3096871Uizmve migraine (SCT 86200286) Cyst of breast (SCT 376837359) Chronic pain syndrome (SCT 775569362) Mixed hyperlipidemia (SCT 550323291) Angioedema of tongue (SCT 388462134) MDD, Recurrent, unspec (ICD-9-CM 296.30)Herpes labialis (SCT 0733491) Acute gastric ulcer (SCT 91860024) Dysphagia (SCT 32106983) Knee pain (SCT 1793754423) health maintenance (ICD-10-CM R69.) Lumbar disc prolapse with radiculopathy Morbid obesity (SCT 414847659) Refractory migraine with aura (SCT 94251Abwheuxli of right hip region (SCT 41968683340656974) History of methicillin resistant StaphylSuicidal ideation (SCT 0505225) Identification of Seniors at Risk (ISAR):* Defer screen age 51 Coronavirus Disease 2019 (COVID-19) Screen The [...] negative. Result: Screen is negative. Suicide Screen: [place] Suicide Severity Rating Scale (C-SSRS) screener 1. [...] within the past 3 months? No /es/ JANAE BARBA RN REGISTERED NURSE Signed: 09/06/2022 15:[address] [facility]
--- OUTSIDE RECORDS SUMMARY | 2023-07-06 21:09 | XMS_ITS | Encounter Summary ---
Author Name [employer] Organization [employer] Address [address] [place] [address] Support Name Relationship Address Phone RUDIAZ BEARD Next of Kin [address] KAYLA BOND [phone] [place] DIAZ Emergency Contact [phone] [address] KAYLA BOND [phone] Insurance Providers: All historical and current Section [...] Patient's Relationship to Policy [facility] ([facility]) MEDICARE ADVANTAGE MCR ([facility]) Jan 12, 2016 [id number] [phone] SONIA VENCESIFER PATIENT [employer] [facility] ([facility]) MEDICARE ADVANTAGE MCR ([facility]) Mar 13, 2020 [id number] SONIA VENCESIE PATIENT [employer] [facility] ([facility]) MEDICARE [facility] ([facility]) Mar 13, 2020 [id number] RU,SONIA NNIFER PATIENT [employer] [facility] ([facility]) MEDICARE ADVANTAGE MCR ([facility]) Mar 13, 2020 [id number] RU,JE NNIFER PATIENT [employer] [facility] ([facility]) MEDICARE ADVANTAGE MCR ([facility]) Mar 13, 2020 [id number] [phone] RU,JE NNIFER PATIENT [facility] ([facility]) MEDICARE ADVANTAGE MEDIC [facility] Mar 13, 2019 [id number] SONIA VENCES PATIENT Selected Encounter This section includes the information on record at [place] for the Encounter. Date/Time Encounter Type Encounter Description Reason Provider Source Aug 25, 2022 01:00 PM Outpatient Encounter OPTOMETRY EDUARDO TAN IHBraulio Encounter Template Text not used by [place] Plan of Treatment: Future Appointments (+ 6 months) and Future Tests (+/- 45 days) The Plan of Treatment section includes future care activities for the patient from all [place] [facility] This section includes future appointments and future orders which are active, pending or scheduled. Future Appointments This section includes appointments that were scheduled to occur 6 months from the date of the Encounter, up to a maximum of 20 appointments. The data comes from all [place] treatment facilities. Appointment Date/Time Appointment Type Appointme nt Facility Name Aug 31, 2022 09:00 AM AMBULATORY - [place]ICINE [place] [facility] Sep 01, 2022 06:00 PM AMBUL[place]ORY - [place]ONE [place] [facility] Sep 02, 2022 10:20 AM AMBUL[place]ORY - [place]GERY [place] [facility] Sep 06, 2022 03:32 PM [place]UL[place]ORY - [place]ICINE [place] [facility] Sep 12, 2022 02:59 PM AM[place]ULATORY - NONE [place] [facility] Sep 27, 2022 02:00 PM AM[place]ULATORY - MEDICINE [place] [facility] Sep 27, 2022 03:45 PM [place]UL[place]ORY - NONE [place] [facility] Oct 04, 2022 06:29 PM [place]UL[place]ORY - [place]ICINE [place] [facility] Oct 12, 2022 06:00 PM [place]ORY - NONE [place] [facility] Oct 31, 2022 12:09 PM [place]ORY - NONE [place] [facility] Nov 01, 2022 03:11 PM [place]ORY - [place]ONE [place] [facility] Nov 09, 2022 03:30 PM AMBUL[place]ORY - [place] [facility] Nov 22, 2022 02:00 PM [place]ORY - NONE [place] [facility] Nov 28, 2022 02:21 PM [place]ORY - NONE [place] [facility] Dec 05, 2022 12:42 PM AM[place]ULATORY - NONE [place] [facility] Dec 16, 2022 05:58 PM [place]ORY - NONE [place] [facility] Jan 19, 2023 09:00 AM AMBUL[place]ORY - [place]RY [place] [facility] Jan 19, 2023 09:30 AM AMBULATORY - PSYCHIATRY [facility] Lab Results: +/- 30 days of the encounter This section includes the Chemistry and Hematology Lab Results on record with [place] for the patient. Radiology Reports and Pathology Reports are provided separately, in subsequent sections. Lab Results This section contains the Chemistry/Hematology Results that were resulted 30 days before or 30 daysafter the date of the Encounter. Date/Time Source Result Type Result - Unit Interpretation Reference Range Comment Aug 14, 2022 06:34 PM [facility] POC CREATININE Specimen Type: BLOOD No comment entered. Ordering Provider: CHARLIE GRECO Report Released Date/Time: Aug 14, 2022 06:36 PM Reporting Lab: [facility] [address] Performing Lab: [facility] [address] POC CREATININE 0.7 0.6-1.3 Aug 14, 2022 06:12 PM [facility] EXTRA GOLD GEL TUBE Specimen Type: SERUM No comment entered. Ordering Provider: CHARLIE GRECO Report Released Date/Time: Aug 14, 2022 06:12 PM Reporting Lab: [facility] [address] Performing Lab: [facility] [address] EXTRA GOLD GEL TUBE RECEIVED Aug 14, 2022 06:12 PM [facility] LIPASE Specimen Type: PLASMA No comment entered. Ordering Provider: CHARLIE GRECO Report Released Date/Time: Aug 14, 2022 06:01 PM Reporting Lab: [facility] [address] Performing Lab: [facility] [address] LIPASE 32 See_Commen t Aug 14, 2022 06:12 PM [facility] HCG, QUAL Specimen Type: URINE No comment entered. Ordering Provider: CHARLIE GRECO Report Released Date/Time: Aug 14, 2022 06:01 PM Reporting Lab: [facility] [address] Performing Lab: [facility] [address] HCG, QUAL NEGATIVE See_Commen t Aug 14, 2022 06:12 PM [facility] COMPREHENSIVE METABOLIC PANEL+MG Specimen Type: PLASMA No comment entered. Ordering Provider: CHARLIE GRECO Report Released Date/Time: Aug 14, 2022 06:01 PM Reporting Lab: [facility] [address] Performing Lab: [facility] [address] CREATININE 0.6 0.5-1.0 UREA NITROGEN 13 7-20 [...] See_Commen t Aug 14, 2022 06:12 PM [facility] CBC & DIFF Specimen Type: BLOOD Comment: Automated Differential Performed Ordering Provider: CHARLIE GRCEO Report Released Date/Time: Aug 14, 2022 06:01 PM Reporting Lab: [facility] [address] Performing Lab: [facility] [address] WBC 18.70 H 4.0-11.0 RBC 5.41 H [...] EOS 0.24 0-0.5 ABS BASO 0.10 0-0.2 IG(META,MYELO,AL O) 0.4 ABS IMMATURE GRAN 0.08 0-0.1 Aug 14, 2022 06:12 PM [facility] URINALYSIS Specimen Type: URINE No comment entered. Ordering Provider: KAILEE AZAR Report Released Date/Time: Aug 14, 2022 06:23 PM Reporting Lab: [facility] [address] Performing Lab: [facility] [address] URINE COLOR YELLOW SPECIFIC GRAVITY 1.028 1.0 [...] See_Commen t Aug 12, 2022 09:00 PM [facility] DRUG SCREEN PANEL,URINE Specimen Type: URINE Comment: Presumptive Positive by screen, results not confirmed. Ordering Provider: BERKLEY LÓPEZ Report Released Date/Time: Aug 12, 2022 08:52 PM Reporting Lab: [facility] [address] Performing Lab: [facility] [address] BARBITURATES POSITIVE H See_Com men t AMPHETAMINES [...] Negative See_Commen t FENTANYL Negative See_Commen t Radiology Reports: +/- 30 days of the [...] the Encounter. The data comes from all [facility] facilities. Date/Time Radiology Report Provider Source Aug 14, 2022 06:[address] (AP) ABDOMEN/PELVIS (P): APPLE VENCES [id number] [id number] F Exm Date: AUG 14, 2022@18:22 Req Phys: CHARLIE GRECO Rhett Cruz Loc: [facility] EMERGENCY DEPT WALK-IN (Re Img Loc: CT IMAGING Service: Unknown Screen: Patient answered no (Case [id number] COMPLETE) CT (AP) ABDOMEN/PELVIS W CONTRAST(CT Detailed) CPT:89638 Contrast Media : Non-ionic Iodinated Reason for [...] COMMENTS AVAILABLE...Refer to Interim Lab Report. Allergies: ([place] only) TETRACYCLINE (July 30, 2014) VENLAFAXINE (July 30, 2014) OXYCODONE (July 30, 2014) PREDNISONE (July 30, 2014) QUETIAPINE (July 30, 2014) TRAMADOL (July 30, 2014) TRAZODONE (July 30, 2014) To see allergies from all [place] locations click Reports tab>Remote Data>All Available Sites>Clinical Reports>Allergies. Report Status: Verified Date Reported: AUG 14, 2022 Date Verified: AUG 14, 2022 Magazine Grinder Loader E-Sig: Report: EXAMINATION: CT (AP) ABDOMEN/PELVIS W CONTRAST [PRINTSET] Clinical History: abdominal pain, elevated WBC. Comparison: No priors available Technique: Axial CT scanning of the abdomen and pelvis was performed from the lung bases through the symphysis pubis without administration of oral and during administration of intravenous contrast. The study was protocoled and supervised at the local [place] facility. 777 images were subsequently received by the [place] [facility] ([facility]) for interpretation. Total [...] as described READING PHYSICIAN: Julien Mena MD -[id number] 08/14/2022 21:03 EDT [facility] [place] [phone] (For Medical Practitioner Use Only) Attention Patients / Veterans: If you have questions or concerns about these test results, please contact your ordering provider or primary care team. Primary Interpreting Staff: RADIOLOGY,OUTSIDE SERVICE, Staff Physician / RADIOLOGY,OUTSIDE SERVICE [facility] Pathology Reports: +/- 30 days of [...] the Encounter. The data comes from all [place] treatment facilities. Date/Time Pathology Report Provider Source Aug 14, 2022 08:24 PM LR MICROBIOLOGY RE PORT: Reporting Lab: [facility] [CLIA# [id number]] [place] [address] Accession [UID]: [id number] [[id number]] Received: Aug 14, 2022@20:24 Collection sample: URINE Collection date: Aug 14, 2022 20:24 Provider: CHARLIE GRECO Comment on specimen: RECEIVED IN STERILE CUP Test(s) ordered: CULTURE & SUSCEPTIBILITY...... completed: Aug 16, 2022 * BACTERIOLOGY FINAL REPORT => Aug 16, 2022 12:40 TECH CODE: [id number] CULTURE RESULTS: 1. SMALL, AEROBIC GRAM POSITIVE RODS - Quantity: >100,000 Comment: No susceptibility testing performed. 2. LESS THAN 10,000 OTHER ORGANISM Bacteriology Remark(s): THIS REPORT IS FINAL =--=--=--=--=--=--=--=--=--=--=--=- -=--=--=--=--=--=--=--=--=--=--=--= --=--=-- Performing Laboratory: Bacteriology Report Performed By: [facility] [CLIA# [id number]] [place] [address] [facility] August 02, 2022 04:00 PM LR MICROBIOLOGY RE PORT: Reporting Lab: [facility] [CLIA# [id number]] [place] [address] Accession [UID]: [id number] [[id number]] Received: August 02, 2022@16:20 Collection sample: WOUND Collection date: August 02, 2022 16:00 Provider: ROBBY ABBOTT Comment on specimen: SCALP WOUND, SWAB RECEIVED Test(s) ordered: GRAM STAIN.................... completed: August 02, 2022 17:17 CULTURE & SUSCEPTIBILITY...... completed: August 04, 2022 * BACTERIOLOGY FINAL REPORT => August 04, 2022 12:52 TECH CODE: [id number] GRAM STAIN: DIRECT SMEAR of specimen before culturing shows: NO PMNS SEEN 1+ EPITHELIAL CELLS NO ORGANISMS SEEN CULTURE PENDING CULTURE RESULTS: STAPHYLOCOCCUS EPIDERMIDIS - Quantity: 2+ Comment: No susceptibility testing performed. Bacteriology Remark(s): THIS REPORT IS FINAL =--=--=--=--=--=--=--=--=--=--=--=- -=--=--=--=--=--=--=--=--=--=--=--= --=--=-- Performing Laboratory: Bacteriology Report Performed By: [facility] [CLIA# [id number]] [place] [address] [facility] Encounter Notes: All associated encounter notes This section contains the clinical notes associated to the Encounter. Date/Time Encounter Note(s) Provider Source Sep 01, 2022 09:21 AM REPORT OF CONTACT: LOCAL TITLE: APPOINTMENT SCHEDULING NOTE STANDARD TITLE: REPORT OF CONTACT DATE OF NOTE: SEP 01, 2022@09:21 ENTRY DATE: SEP 01, 2022@09:21:23 AUTHOR: VIANEY CARBONE EXP COSIGNER: URGENCY: STATUS: COMPLETED APPOINTMENT SCHEDULING NOTE Has ADDENDA Attempted to schedule Return to clinic (RTC) Contact attempt made to 2nd attempt Letter Disposition order request after Sep If calls back, schedule appt for: MWD EYE OPTOM G /es/ VIANEY Luis Alberto MUNIZ [facility] Signed: 09/01/2022 09:22 09/16/2022 ADDENDUM STATUS: COMPLETED Failure to respond MWD EYE OPTOM G Disassociated /es/ VIAENY L RAF MUNIZ [facility] Signed: 09/16/2022 08:36 VIANEY CARBONE [facility] Aug 25, 2022 03:27 PM REPORT OF CONTACT: LOCAL TITLE: APPOINTMENT SCHEDULING NOTE STANDARD TITLE: REPORT OF CONTACT DATE OF NOTE: AUG 25, 2022@15:27 ENTRY DATE: AUG 25, 2022@15:27:43 AUTHOR: SOPHIE MCCORMACK EXP COSIGNER: URGENCY: STATUS: COMPLETED Attempted to schedule No show Contact: automated no-show letter queued to be sent Contact: Called [place] at: If calls back, schedule appointment for: MWD EYE OPTOM G NEW ROUTINE EYE /es/ SOPHIE MUNIZ Signed: 08/25/2022 15:30 SOPHIE MCCORMACK [facility]
--- OUTSIDE RECORDS SUMMARY | 2023-07-06 21:09 | XMS_ITS | Encounter Summary ---
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 A Tarasoff warning was not made as there is no specific threat being made. Patient is maladaptively expressing frustration. We discussed ways to make frustration and anger more adaptive. Patient will connect with [facility] via scheduling card to seek further MH resources and services. SUICIDE RISK ASSESSMENT: - Risk Factors: Substance use, impulsivity, maladaptive coping skills - Protective Factors: stable housing, future oriented, economically resourced, service connected Suicide Risk Level Impression: Acute Risk: ( ) High - unlikely to survive as outpatient. Immediate intervention is needed. (x) Intermediate - has identified many risk factors but protective factors have influence to keep from imminent risk. ( ) Low - can survive and function as outpatient. Protective factors and coping strategies are present. Assaultiveness Risk Level Impression: Acute Risk: ( ) High - unlikely to not hurt someone. Immediate intervention is needed. ( ) Intermediate - has identified many risk factors but protective factors have influence to keep from imminent risk. (x) Low - no active risks for assaultiveness. Protective factors and coping strategies are present. PLAN: -Admission not warranted at this time -Patient to follow up with outpatient provider and call to schedule therapy and psychiatry appointments in [facility] on Monday -Patient to make police report re: MST -Mental Health/Addictive Disorder Services card provided -Safety plan completed with patient Marcel Conrad DO POD, Fee-Basis Physician /khoi CONRAD Fee Basis Physician Signed: 08/12/2022 23:00 Receipt Acknowledged By: 08/15/2022 07:27 /khoi PAREDES PA-C PHYSICIAN STUDENT LIFE COORDINATOR, MENTAL HEALTH * AWAITING SIGNATURE * MEGAN SALAZAR 08/12/2022 ADDENDUM STATUS: COMPLETED Care provided: Initial care covered under the COMPACT Act of 2020 Section 201. Wilmer is in an Acute Suicidal Crisis Supporting clinical documentation: Passive SI without plan or intent - please see HPI /khoi CONRAD Fee Basis Physician Signed: 08/12/2022 23:01 08/15/2022 ADDENDUM STATUS: COMPLETED [place] enrollment entered in error ( does not meet criteria--SI w/o intent, plan, or preperatory behaviors). Crisis evaluation determined that suicide risk is non-acute. /es/ SAMI PAREDES PA-C PHYSICIAN STUDENT LIFE COORDINATOR, MENTAL HEALTH Signed: 08/15/2022 08:09 MARCEL CONRAD [facility]
--- OUTSIDE RECORDS SUMMARY | 2023-07-06 21:10 | XMS_ITS | Encounter Summary ---
Author Name [employer] Organization [facility] [employer] Address [address] [place] [address] Support Name Relationship Address Phone DIAZ VENCES Next of Kin [id number] [address] [phone] DIAZ VENCES Emergency Contact [address] [address] KAYLA BOND [phone] Insurance Providers: All historical and current Section [...] Patient's Relationship to Policy [employer] [facility] ([place] MEDICARE ADVANTAGE MCR ([place]) Jan 12, 2016 [id number] [phone] SONIA VENCESIFER PATIENT [employer] [facility] ([place] MEDICARE ADVANTAGE [employer] ([place] Mar 13, 2020 [id number] RU,SONIA NNIFER PATIENT [employer] [facility] ([place] MEDICARE ADVANTAGE [facility] ([place] Mar 13, 2020 [id number] RU,SONIA DU PATIENT [employer] [facility] ([place] MEDICARE ADVANTAGE [facility] ([place]) Mar 13, 2020 [id number] RU,SONIA NNIFER PATIENT [employer] [facility] ([place] MEDICARE ADVANTAGE [facility] ([place]) Mar 13, 2020 [id number] RU,SONIA NNIFER PATIENT [facility] ([place] MEDICARE ADVANTAGE MEDIC MARY ELLEN BRADLEY Mar 13, 2019 [id number] SONIA VENCES PATIENT Selected Encounter This section includes the information on record at [place] for the Encounter. Date/Time Encounter Type Encounter Description Reason Provider Source Apr 03, 2023 01:59 PM Outpatient Encounter TELEPHONE TRIAGE VERONICAIBIS DEWEY Encounter Template Text not used by [place] Plan of Treatment: Future Appointments (+ 6 months) and Future Tests (+/- 45 days) The Plan of Treatment section includes future care activities for the patient from all [place] treatmentfacilities. This section includes future appointments and future orders which are active, pending or scheduled. Future Appointments This section includes appointments that were scheduled to occur 6 months from the date of the Encounter, up to a maximum of 20 appointments. The data comes from all [place] treatment facilities. Appointment Date/Time Appointment Type Appointme nt Facility Name May 30, 2023 11:00 AM AMBULATORY - SURGERY [facility] Vital Signs: All taken on the encounter date This section contains inpatient and outpatient Vital Signs collected on the date of the Encounter. Date/Time Temperature Pulse Blood Pressure Respiratory Rate SP02 Pain Height Weight Body Mass Index Source Apr 03, 2023 03:28 PM 97.7 F 69 /min 99/55 mm[Hg] 15 /min 0 [facility] Social History: Smoking Status (Most current) and Tobacco Use (All prior to encounter date) This section includes the most current, and the historical, smoking and tobacco- related health factors from the [place] facility where the Encounter took place. Current Smoking Status This section includes the most current smoking, or tobacco-related health factor, from the [place] facility where the Encounter took place. Date/Time Current Smoking Status Comment Facil ity Jun 17, 2015 07:02 AM FORMER TOBACCO USE >1Y <7Y [facility] Tobacco Use History This section includes a history of the smoking, or tobacco-related health factors, that were collected on or before the date of the Encounter. The data comes from the [place] facility where the Encounter took place. Date/Time Smoking Status/Tobacco Use Comment F acility July 30, 2014 09:31 AM FORMER TOBACCO USE <1Y [facility] Encounter Notes: All associated encounter notes This section contains the clinical notes associated to the Encounter. Date/Time Encounter Note(s) Provider Source Apr 03, 2023 01:59 PM RN PROGRESS NOTE: LOCAL TITLE: CCC: CLINICAL TRIAGE STANDARD TITLE: RN PROGRESS NOTE DATE OF NOTE: APR 03, 2023@13:59:22 ENTRY DATE: APR 03, 2023@13:59:22 AUTHOR: IBIS MARTIN COSIGNER: URGENCY: STATUS: COMPLETED Patient Demographics Patient Name: APPLE VENCES Patient Primary Address: [address] [place] [id number] Patient Primary Phone: [phone] Patient : 1970 Patient Age: 52 Caller/Recipient Relation to Patient: Self Emergency Contact: DIAZ RU Triage Summary Conducted triage/discussed symptoms Pain Score: 0 (No Pain) Utilized the Triage Tool: Yes Chief Complaint: Rash (scalp) System WHEN: Within 24 Hours Nurse's Recommendation / WHEN: Now Nurse's Other / WHEN: enroute System WHERE: Clinic Nurse's Recommendation / [facility] Patient Disposition Patient/Caregiver agrees to plan of care: Yes Patient [facility] Patient WHEN: Now Patient is Urgent or Emergent Nursing Plan and Disposition Referred patient to higher level of care Instructed to go to Emergency Room (ER) Nurse Summary Nurse Summary: PATIENT CONCERN/DURATION/ONSET: [place] c/o MRSA abscess on her scalp that she went to a local for and was prescribed Doxycycline. She is on day 2 of this medication with no improvement in her abscess. She states the one abscess has now increased to several on the back of her scalp and that Clindamycin works better for her. She in in route to the [place] ED but would like a consult to dermatology. WHAT HAS PATIENT TRIED TO TREAT THE SYMPTOMS: Doxy HISTORY/PREVIOUS TREATMENT: Dermatology clinic MRSA of scalp WHAT IS PATIENT GOAL FOR THE CALL: Dermatology consult Was [facility] considered (TELE or VVC)? Not appropriate or available for this hematology technologist. Appointment with [facility] at Please call at [employer] DISPOSITION: Recommended triage is [place] ED now for scalp abscess and no improvement on current antibiotic secondary to in-route to the [place] ED. Vet verbalizes understanding of plan of care. Best contact for is (Verified). [phone] This note was created by a [address] vice president of sales. Please do not alert this nurse by adding as a signer for future communications. Alerts are not monitored by this user, please reach out to [facility] Leadership instead if indicated. Clinical Contact Center Codes Clinic/Location: [address] PHONE CCC RN [facility]CC Triage Complete Triage Note: Phone Triage 03 Apr 2023 19:50:14 +0000 [facility] Demographics 52 y/o Female Results CC: Rash (scalp) Software suggested: Within 24 Hours Software suggested follow-up location: Clinic, consider [facility] care Values and Measures Duration of CC: 2 Days Positive Responses HPI: skin lump, swollen, painful, scalp Negative Responses Denies: HPI: rash, target or bulls eye, pale center Denies: HPI: rash, vesicular, unilateral scalp Denies: HPI: scalp drainage, purulent Denies: HPI: scalp erythema, worsening Denies: HPI: scalp pain, moderate to severe Denies: HPI: scalp pain, severe Denies: HPI: scalp pain, worsening Denies: HPI: scalp rash, unilateral, erythematous, painful Denies: HPI: symptoms similar to past herpes zoster Denies: HPI: tick bite, within past 6 weeks /es/ KEERTHI GilbertN, RN, [facility] [id number] [facility] Signed: 04/03/2023 13:59 IBIS MARTIN [facility]
--- OUTSIDE RECORDS SUMMARY | 2023-07-06 21:10 | XMS_ITS | Encounter Summary ---
Author Name [employer] [facility] [employer] Organization [facility] Address [address] [place] [address] Support Name Relationship Address Phone RUDIAZ Next of Kin [phone] [address] [phone] RU DIAZ Emergency Contact [address] [address] [phone] Insurance Providers: All historical and current Section [...] Patient's Relationship to Policy [facility] ([facility]) MEDICARE ADVANTAGE MCR ([facility]) Jan 12, 2016 [id number] [phone] RU,SONIA NNIFER PATIENT [employer] [facility] (WNR) MEDICARE ADVANTAGE [facility] (R) Mar 13, 2020 [id number] RU,SONIA NNIFER PATIENT [employer] [facility] (WNR) MEDICARE [facility] (R) Mar 13, 2020 [id number] RU,SONIA NNIE PATIENT [employer] [facility] (WNR) MEDICARE ADVANTAGE [facility] (WNR) Mar 13, 2020 [id number] RU,JE NNIFER PATIENT [facility] [facility] (WNR) MEDICARE ADVANTAGE M[facility] (WNR) Mar 13, 2020 [id number] RU,JE NNIFER PATIENT [facility] (WNR) MEDICARE ADVANTAGE MEDIC ARE NATHEN BRADLEY Mar 13, 2019 [id number] SONIA VENCES PATIENT Selected Encounter This section includes the information on record at NH for the Encounter. Date/Time Encounter Type Encounter Description Reason Provider Source Oct 04, 2022 06:29 PM EMERGENCY DEPT VISIT [facility] EMERGENCY DEPT ICD-10-CM L03.90 Cellulitis, unspecified LV DALY Braulio Encounter Template Text not used by NH Assessments - Encounter Diagnoses This section includes the primary and secondary diagnoses documented for the Encounter. Date/Time Primary/Secondary Diagnosis Diagnosis Name Provider Source Oct 04, 2022 06:57 PM PRIMARY Cellulitis, unspecified LV DALY [facility] Plan of Treatment: Future Appointments (+ 6 months) and Future Tests (+/- 45 days) The Plan of Treatment section includes future care activities for the patient from all NH treatmentfacilities. This section includes future appointments and future orders which are active, pending or scheduled. Future Appointments This section includes appointments that were scheduled to occur 6 months from the date of the Encounter, up to a maximum of 20 appointments. The data comes from all NH treatment facilities. Appointment Date/Time Appointment Type Appointme nt Facility Name Oct 12, 2022 06:00 PM [place]ORY [place]ONE [place] [facility] Oct 31, 2022 12:09 PM [facility]ORY - [place]ONE [place] [facility] Nov 01, 2022 03:11 PM [place]ORY [place]ONE [place] [facility] Nov 09, 2022 03:30 PM AM[place] [facility] Nov 22, 2022 02:00 PM AM[place]ULATORY - NONE [place] [facility] Nov 28, 2022 02:21 PM AM[place]ORY - NONE [place] [facility] Dec 05, 2022 12:42 PM [facility]ORY - [place]ONE [place] [facility] Dec 16, 2022 05:58 PM [place]ORY - [place]ONE [place] [facility] Jan 19, 2023 09:00 AM AM[place]ORY [place] [facility] Jan 19, 2023 09:30 AM AMBULATORY [place] [facility] Feb 27, 2023 09:16 PM [place]ORY - [place]ONE [place] [facility] Mar 21, 2023 05:01 PM [facility]ORY - NONE [place] [facility] Apr 03, 2023 02:14 PM [facility] Lab Results: +/- 30 days of the encounter This section includes the Chemistry and Hematology Lab Results on record with NH for the patient. Radiology Reports and Pathology Reports are provided separately, in subsequent sections. Lab Results This section contains the Chemistry/Hematology Results that were resulted 30 days before or 30 daysafter the date of the Encounter. Date/Time Source Result Type Result - Unit Interpretation Reference Range Comment Sep 27, 2022 04:49 PM [facility] C.TRACHOMATIS/N.GONORRHEA DNA Specimen Type: URINE No comment entered. Ordering Provider: JOSE SHAH SA Report Released Date/Time: Sep 27, 2022 03:02 PM Reporting Lab: [facility] [id number] Performing Lab: [facility] [id number] C.TRACHOMATIS DNA NOT DETECTED N.GONORRHEA DNA NOT DETECTED CT/NG INTERPRETATION Infectious agent DNA is not detected by this assay Sep 27, 2022 04:49 PM [facility] C.TRACHOMATIS/N.GONORROEAE,RECTAL Specimen Type: RECTAL Comment: Specimen too short for repeat testing Cancellation reported to: Diya Rodas RN at 0910-03-22,TTP Test not performed. Initial testing necessitated a repeat, but there was insufficient sample to perform repeat. Test Performed by [facility], [employer] [facility], [address] [place] [address] Tigre Valdovinos M.D., Ph.D., Director of Laboratories , [place] [id number] Ordering Provider: JOSE SHAH SA Report Released Date/Time: Sep 27, 2022 03:02 PM Reporting Lab: [facility] [id number] Performing Lab: [address] .C TRACHOMATIS,RNA TNP .N GONORROEAE,RNA TNP Sep 27, 2022 04:49 PM [facility] C.TRACHOMATIS/N.GONORROEAE,THROAT Specimen Type: THROAT Comment: Methodology: Negative Developer Mediated Amplification(T MA) to detect RNA. The analytical performance characteristics of this assay have been determined by [employer]. The modifications have not been cleared or approved by the FDA. This assay has been validated pursuant to the CLIA regulations and is used for clinical purposes. Test Performed by [facility], [employer] [facility], [address] [place] [address] Tigre Valdovinos M.D., Ph.D., Director of Laboratories , CLIA [id number] Ordering Provider: JOSE SHAH SA Report Released Date/Time: Sep 27, 2022 03:02 PM Reporting Lab: [facility] [id number] Performing Lab: [address] .C TRACHOMATIS,RNA Not Detected See_Commen t .N GONORROEAE,RNA Not Detected See_Commen t Sep 27, 2022 03:38 PM [facility] HIV AG/AB SCREEN Specimen Type: SERUM No comment entered. Ordering Provider: JOSE SHAH SA Report Released Date/Time: Sep 27, 2022 03:02 PM Reporting Lab: [facility] [id number] Performing Lab: [facility] [address] HIV AG/AB SCREEN NEGATIVE See_Commen t Sep 27, 2022 03:38 PM [facility] ANTI-HEP C(EIA) Specimen Type: SERUM No comment entered. Ordering Provider: JOSE SHAH SA Report Released Date/Time: Sep 27, 2022 03:02 PM Reporting Lab: [facility] [phone] Performing Lab: [facility] [id number] ANTI-HEP C(EIA) NEGATIVE See_ Commen t Sep 27, 2022 03:38 PM [facility] SYPHILIS ANTIBODY Specimen Type: SERUM No comment entered. Ordering Provider: JOSE SHAH SA Report Released Date/Time: Sep 27, 2022 03:02 PM Reporting Lab: [facility] [phone] Performing Lab: [facility] [address] SYPHILIS ANTIBODY NEGATIVE Vital Signs: All taken on the encounter date This section contains inpatient and outpatient Vital Signs collected on the date of the Encounter. Date/Time Temperature Pulse Blood Pressure Respiratory Rate SP02 Pain Height Weight Body Mass Index Source Oct 04, 2022 06:35 PM 96.4 F 89 /min 128/83 mm[Hg] 16 /min 96 % 4 [place] [facility] Social History: Smoking Status (Most current) and Tobacco Use (All prior to encounter date) This section includes the most current, and the historical, smoking and tobacco- related health factors from the [facility] where the Encounter took place. Current Smoking Status This section includes the most current smoking, or tobacco-related health factor, from the [facility] where the Encounter took place. Date/Time Current Smoking Status Comment Facil ity Jun 17, 2015 07:02 AM FORMER TOBACCO USE >1Y <7Y [facility] Tobacco Use History This section includes a history of the smoking, or tobacco-related health factors, that were collected on or before the date of the Encounter. The data comes from the [facility] where the Encounter took place. Date/Time Smoking Status/Tobacco Use Comment F acility July 30, 2014 09:31 AM FORMER TOBACCO USE <1Y [facility] Encounter Notes: All associated encounter notes This section contains the clinical notes associated to the Encounter. Date/Time Encounter Note(s) Provider Source Oct 04, 2022 06:51 PM EMERGENCY DEPT EDUCATION NOTE: LOCAL TITLE: EMERGENCY DEPT DISCHARGE INSTRUCTIONS STANDARD TITLE: EMERGENCY DEPT EDUCATION NOTE DATE OF NOTE: OCT 04, 2022@18:51:02 ENTRY DATE: OCT 04, 2022@18:51:02 AUTHOR: LV DALY EXP COSIGNER: URGENCY: STATUS: COMPLETED DISCHARGE INSTRUCTIONS [...] below. You were treated today by BISHNU Stout. Special Information This Information Is About Your Follow Up Care Call your Primary Care Team if you have any problems or concerns. You can reach them by calling . Future Appointments 10/12/2022 at 6:00pm [facility] MAMMO TEXT REMINDER 10/25/2022 at 8:00am [facility] NURSE [id number] 10/25/2022 at 8:30am [facility] BISSONETTE [id number] 11/22/2022 at 2:00pm [facility] LAB 2PM-445PM BLOOD DRAW This Information Is About Your Illness and [...] ONE TABLET BY MOUTH TWICE A DAY\Indication: FOR CELLULITIS Active Medications ACETAMINOPHEN TAB 1000MG MOUTH [...] TAKE ONE TABLET BY MOUTH AT BEDTIME DOXYCYCLINE HYCLATE 100MG TAB TAKE ONE TABLET BY MOUTH TWICE A DAY FOR CELLULITIS EPINEPHRINE (EQV-EPI-PEN) 0.3MG/0.3ML INJECT 1 PEN DIRECTED NEEDED FOR ANAPHYLACTIC REACTION FEXOFENADINE HCL 180MG TAB TAKE ONE TABLET BY MOUTH EVERY DAY FOR ALLERGIES FLUOXETINE HCL 20MG CAP TAKE TWO CAPSULES BY MOUTH EVERY DAY FOR DEPRESSION FLUTICASONE PROP 50MCG 120D NASAL INHL SPRAY 2 SPRAYS IN EACH NOSTRIL EVERY DAY FOR ALLERGIES IBUPROFEN TAB 200MG MOUTH FOUR TIMES A DAY NEEDED (Non-VA Medication) KETOCONAZOLE 2% SHAMPOO SHAMPOO SCALP TOPICALLY 3 TIMES WEEKLY SCALP INFECTION *LATHER FOR 5 MINUTES THEN RINSE* LEVOTHYROXINE NA (SYNTHROID) 100MCG TAB TAKE ONE TABLET BY MOUTH EVERY DAY FOR THYROID LORAZEPAM TAB 1MG MOUTH AT BEDTIME (Non-VA Medication) MECLIZINE HCL 25MG CHEW TAB CHEW ONE TABLET BY MOUTH TWICE A DAY NEEDED FOR MIGRAINE ASSOCIATED DIZZINESS -MAY BE CHEWED OR SWALLOWED MELATONIN 3MG CAP/TAB TAKE 3 TAB (9 MG) 3MG BY MOUTH AT BEDTIME FOR SLEEP FOR SLEEP NON VA MED NOT LISTED MISCELLANEOUS VOLUNTARY DISCLOSURE MEDICINAL CANNABIS EVERY DAY NEEDED (Non-VA Medication) PRIMIDONE TAB 50MG MOUTH AT BEDTIME (Non-VA Medication) Medications Medications in the last 90 days AMOXICILLIN 500MG CAP TAKE TWO CAPSULES BY MOUTH THREE TIMES A DAY FOR PNEUMONIA FLUTICAS 100/SALMETEROL 50 INHL DISK 60 INHALE 1 PUFF BY INHALATION TWICE A DAY FOR ASTHMA *RINSE MOUTH AFTER EACH USE* GABAPENTIN 300MG CAP TAKE THREE CAPSULES BY MOUTH TWICE A DAY FOR PAIN AND NUMBNESS MONTELUKAST NA 10MG TAB TAKE ONE TABLET BY MOUTH EVERY EVENING FOR ASTHMA SULFAMETHOXAZOLE 800/TRIMETH 160MG TAB TAKE 1 TABLET BY MOUTH TWICE A DAY FOR 5 DAYS FOR FOLLICULITIS, SINUSITIS SULFAMETHOXAZOLE 800/TRIMETH 160MG TAB TAKE 1 TABLET BY MOUTH TWICE A DAY TIZANIDINE HCL 4MG TAB TAKE ONE-HALF TABLET BY MOUTH THREE TIMES A DAY NEEDED FOR MUSCLE SPASMS/TIGHTNESS Discontinued Medications Medications discontinued in the last 90 days CLINDAMYCIN PHOSPHATE 1% TOP SOLN APPLY TO AFFECTED AREA TOPICALLY TWICE A DAY NEEDED FOR FOLLICULITIS EXTERNAL USE ONLY CLONIDINE HCL 0.1MG TAB TAKE ONE TABLET BY MOUTH TWICE A DAY DIVALPROEX 500MG 24HR (ER) SA TAB TAKE ONE TABLET BY MOUTH AT BEDTIME FLUOXETINE HCL 20MG CAP TAKE TWO CAPSULES BY MOUTH EVERY DAY LEVOTHYROXINE NA (SYNTHROID) 112MCG TAB TAKE ONE TABLET BY MOUTH EVERY DAY FOR THYROID YOU ARE THE MOST IMPORTANT FACTOR IN [...] GO TO THE NEAREST EMERGENCY ROOM // BISHNU STOUT PHYSICIAN CERTIFIED MEDICAL AIDE Signed: 10/04/2022 18:51 LV DALY [facility] Oct 04, 2022 06:51 PM PHYSICIAN EMERGENCY DEPT NOTE: LOCAL TITLE: EMERGENCY DEPT NOTE STANDARD TITLE: PHYSICIAN EMERGENCY DEPT NOTE DATE OF NOTE: OCT 04, 2022@18:51 ENTRY DATE: OCT 04, 2022@18:51:29 AUTHOR: LV DALY EXP COSIGNER: URGENCY: STATUS: COMPLETED Personal Protective Equipment (PPE): RN used PPE during every encounter with the patient, /BISHNU/TARIFF EXPERT used PPE during every encounter with the patient Nurse's note reviewed. Chief Complaint: The patient is a 51 y/o FEMALE complaining of: I have staph infection. TDAP/TD Immunizations No data available for: TETANUS TOXOID, ADSORBED TETANUS TOXOID, NOT ADSORBED TETANUS TOXOID, UNSPECIFIED FORMULATION TDAP Covid-19 Immunizations Immunization Series Date Facility Reaction Info COVID-19 (PFIZER), MRNA, LNP-S, P* 1 06/04/2020 [facility] COVID-19 (PFIZER), MRNA, LNP-S, P* 2 06/30/2020 [facility] COVID-19 (PFIZER), MRNA, LNP-S, P* 3 [...] episodes, severe, with psychosis - suicide attempt/hospitalization [place] 1991 2. Family history of disorder - Fa depression, HT - sister bipolar, hypothyroidism, type 2 DM - Mo - depression - Mat GF prostate cancer 3. 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 H/O: - - vaginal 5. Acne (SNOMED CT 35852182) 6. Closed fracture of fifth metatarsal bone [...] globus pharyngeus 27. Knee pain (SNOMED CT 0467002707) - bilateral, RX hyaluronic and ENDOSCOPY TECHNICAN injections 28. health maintenance - 05/28/13 normal [...] aureus infection 34. Suicidal ideation (SNOMED CT 2624930) Medications: Active Outpatient Medications (excluding Supplies): Outpatient [...] BEDTIME ACTIVE 26 Total Medications Physical Exam: Blood Pressure: 128/83 (10/04/2022 18:35) Heart Rate: 89 (10/04/2022 18:35) Respirations: 16 (10/04/2022 18:35) Temperature: 96.4 F [35.8 C] (10/04/2022 18:35) Pain: 4 (10/04/2022 18:35) Weight: 151 lb [68.49 kg] (09/27/2022 14:23) O2 Sats: 96% (10/04/2022 18:35) General: NAD Skin: There are few red [...] Cellulitis: -Doxycycline on demand follow-up with PCP -advised to use baby oiul and wash hair with yougart. /jose armando/ BISHNU STOUT PHYSICIAN CERTIFIED MEDICAL AIDE Signed: 10/04/2022 18:52 LV DALY [facility] Oct 04, 2022 06:49 PM NURSING EMERGENCY DEPT NOTE: LOCAL TITLE: EMERGENCY DEPT NURSING NOTE STANDARD TITLE: NURSING EMERGENCY DEPT NOTE DATE OF NOTE: OCT 04, 2022@18:49 ENTRY DATE: OCT 04, 2022@18:49:20 AUTHOR: VAMSI [place] COSIGNER: URGENCY: STATUS: COMPLETED Emergency Department Discharge Education Personal Protective Equipment (PPE): Patient was in mask on arrival, patient remained masked for entire visit, RN used PPE during every encounter with the patient, MD/PA/TARIFF EXPERT used PPE during every encounter with the patient The patient was given education on the following: itchy scalp EDUCATION/TEACH BACK: [facility] discharge instructions have been reviewed with Patient AND had an opportunity to ask questions, has verbalized understanding, have received a copy of the [facility] instructions EDUCATIONAL LEVEL OF UNDERSTANDING: Patient was ready and receptive to education. BARRIERS TO LEARNING: No barriers identified Accompanied by: Family Mode of Transportation: Relative/friend EXIT ADDITIONAL EDUCATION GIVE: Discharged to: Home /jose armando/ VAMSI [place] RN HYPERION ADMINISTRATOR Signed: 10/04/2022 18:49 VAMSI [place] [facility] Oct 04, 2022 06:41 PM NURSING EMERGENCY DEPT NOTE: LOCAL TITLE: EMERGENCY DEPT NURSING NOTE STANDARD TITLE: NURSING EMERGENCY DEPT NOTE DATE OF NOTE: OCT 04, 2022@18:41 ENTRY DATE: OCT 04, 2022@18:41:08 AUTHOR: VAMSI C[place] EXP COSIGNER: URGENCY: STATUS: COMPLETED Nursing Focused Assessment: CHIEF COMPLAINT: REturns to the ED for an itchy scalp problem for a year. Seen in the ED September 06. Seen by PCP September 27. She states her primary told her to see Dermatology but she says it's too hard to get an appt so came back to the ED. Allergies/ADR: TETRACYCLINE (July 30, 2014) VENLAFAXINE (July 30, 2014) OXYCODONE (July 30, 2014) PREDNISONE (July 30, 2014) QUETIAPINE (July 30, 2014) TRAMADOL (July 30, 2014) TRAZODONE (July 30, 2014) Additional allergies not listed: Vital Signs * Blood Pressure: 128/83 (10/04/2022 18:35) Heart Rate: 89 (10/04/2022 18:35) Respirations: 16 (10/04/2022 18:35) Temperature: 96.4 F [35.8 C] (10/04/2022 18:35) Pain: 4 (10/04/2022 18:35) Weight: 151 lb [68.49 kg] (09/27/2022 14:23) O2 Sats: 96% (10/04/2022 18:35) Tobacco use: No Alcohol use: No Any drugs besides what is prescribed or over the counter: No ABUSE/NEGLECT: No evidence of abuse/neglect WOMAN OF CHILDBEARING AGE (</= 52 years): Date of last menstrual period xx Comment: Length of period: REVIEW OF SYSTEM-FOCUSED ASSESSMENT Neurological: Alert INTERVENTIONS: Oriented to room and bed controls Call light within reach of patient or family/friend /jose armando/ VAMSI C[place] DENTAL CLAIMS PROCESSOR RN Signed: 10/04/2022 18:44 VAMSI C[place] [facility] Oct 04, 2022 06:35 PM NURSING EMERGENCY DEPT TRIAGE NOTE: LOCAL TITLE: EMERGENCY DEPARTMENT NURSING TRIAGE NOTE STANDARD TITLE: NURSING EMERGENCY DEPT TRIAGE NOTE DATE OF NOTE: OCT 04, 2022@18:35 ENTRY DATE: OCT 04, 2022@18:35:53 AUTHOR: GRACIE PETERS EXP COSIGNER: URGENCY: STATUS: COMPLETED Emergency Department/Urgent Care Center Triage Patient age:52 Sex: FEMALE On arrival patient was: AMBULATORY Patient phone number: Allergies: TETRACYCLINE (July 30, 2014) VENLAFAXINE (July 30, 2014) OXYCODONE (July 30, 2014) PREDNISONE (July 30, 2014) QUETIAPINE (July 30, 2014) TRAMADOL (July 30, 2014) TRAZODONE (July 30, 2014) Subjective/Chief Complaint: Pt c/o itchy, burning scalp x1 year. Reports she usually needs 2 rounds of Keflex to get it under control. Has seen dermatology in the past but not recently. Objective: Pt is alert, ambulatory with steady gait. Non labored respirations. The patient is not a fall risk. Vital Signs * Blood Pressure: 128/83 (10/04/2022 18:35) Heart Rate: 89 (10/04/2022 18:35) Respirations: 16 (10/04/2022 18:35) Temperature: 96.4 F [35.8 C] (10/04/2022 18:35) Pain: 4 (10/04/2022 18:35) Weight: 151 lb [68.49 kg] (09/27/2022 14:23) O2 Sats: 96% (10/04/2022 18:35) Emergency Severity Index (BRITTANY) level Level 4 [...] ONE TABLET BY ACTIVE MOUTH AT BEDTIME 5) DOXYCYCLINE HYCLATE 100MG TAB TAKE ONE TABLET BY ACTIVE MOUTH TWICE A DAY FOR CELLULITIS 6) EPINEPHRINE (EQV-EPI-PEN) 0.3MG/0.3ML INJECT 1 PEN ACTIVE DIRECTED NEEDED FOR ANAPHYLACTIC REACTION 7) FEXOFENADINE HCL 180MG TAB TAKE ONE TABLET BY MOUTH ACTIVE EVERY DAY FOR ALLERGIES 8) FLUOXETINE HCL 20MG CAP TAKE TWO CAPSULES BY MOUTH ACTIVE EVERY DAY FOR DEPRESSION 9) FLUTICASONE PROP 50MCG 120D NASAL INHL SPRAY 2 SPRAYS ACTIVE IN EACH NOSTRIL EVERY DAY FOR ALLERGIES 10) KETOCONAZOLE 2% SHAMPOO SHAMPOO SCALP TOPICALLY 3 ACTIVE TIMES WEEKLY SCALP INFECTION *LATHER FOR 5 MINUTES THEN RINSE* 11) LEVOTHYROXINE NA (SYNTHROID) 100MCG TAB TAKE ONE ACTIVE TABLET BY MOUTH EVERY DAY FOR THYROID 12) MECLIZINE HCL 25MG CHEW TAB CHEW ONE TABLET BY MOUTH ACTIVE TWICE A DAY NEEDED FOR MIGRAINE ASSOCIATED DIZZINESS -MAY BE CHEWED OR SWALLOWED 13) MELATONIN 3MG CAP/TAB TAKE 3 TAB (9 MG) 3MG BY MOUTH ACTIVE AT BEDTIME FOR SLEEP FOR SLEEP Active Non-VA Medications Status 1) [...] 50MG TAB 50MG MOUTH AT BEDTIME ACTIVE 20 Total Medications Current Problems: Recurrent major depressive episodes, sevFamily history of disorder ([email or web address]] [id number]) Affective personality trait ([facility] [[email or web address]] [id number]/O: ([facility] [[email or web address]] [id number]) Acne ([facility] [[email or web address]] [id number]) Closed fracture of fifth metatarsal bone ([facility] [[email or web address]] [id number]) Gastroesophageal reflux disease ([facility] [[email or web address]] 235Anxiety disorder ([facility] [[email or web address]] [id number]) Tear of medial meniscus of knee ([facility] [[email or web address]] 302Mild persistent asthma ([facility] [[email or web address] [id number]) Hypothyroidism ([facility] [[email or web address]] 43252902) Celiac disease ([facility] [[email or web address]] [id number]) Steatosis of liver ([facility] [[email or web address]] [id number]) Chronic low back pain ([facility] [[email or web address]] [phone]) Nicotine dependence ([email or web address] 47768693) Schizoaffective disorder ([facility] [[email or web address] 10013928) Perennial allergic rhinitis ([facility] [[email or web address]] 3516147Zgdosz migraine ([facility] [[email or web address]] [id number]) Cyst of breast ([facility] [[email or web address]] [phone]) Chronic pain syndrome ([facility] [[email or web address] [id number]) Mixed hyperlipidemia ([email or web address] 250539354) Angioedema of tongue ([facility] [[email or web address]] [id number]) MDD, Recurrent, unspec (ICD-9-CM 296.30)Herpes labialis ([facility] [[email or web address]] 6322901) Acute gastric ulcer ([facility] [[email or web address]] [id number]) Dysphagia ([facility] [[email or web address]] 39314437) Knee pain ([facility] [[email or web address]] [id number]) health maintenance (ICD-10-CM R69.) Lumbar disc prolapse with radiculopathy Morbid obesity ([facility] [[email or web address]] [id number]) Refractory migraine with aura ([facility] [[email or web address]] 16273Pgeuzywar of right hip region ([facility] [[email or web address]] [id number]) History of methicillin resistant StaphylSuicidal ideation ([facility] [[email or web address]] [id number]) Identification of Seniors at Risk (ISAR):* Defer screen > 75 yrs old Coronavirus Disease 2019 (COVID-19) Screen The patient [...] negative. Result: Screen is negative. Suicide Screen: [place] Suicide Severity Rating Scale (C-SSRS) screener 1. [...] to responses to other questions. /jose armando/ GRACIE PETERS RN BSN REGISTERED NURSE Signed: 10/04/2022 18:38 GRACIE PETERS [facility]
--- OUTSIDE RECORDS SUMMARY | 2023-07-06 21:10 | XMS_ITS | Encounter Summary ---
Author Name [employer] [facility] Organization [facility] Address [address] [place] [address] Support Name Relationship Address Phone RUDIAZ Next of Kin [phone] [address] KAYLA BOND [phone] DIAZ VENCES Emergency Contact [address] [address] KAYLA BOND [phone] Insurance Providers: All historical and current Section [...] Patient's Relationship to Policy [facility] ([facility]) MEDICARE [facility] ([facility]) Jan 12, 2016 [id number] [phone] SONIA VENCESIFER PATIENT [employer] [facility] ([facility]) MEDICARE [facility] ([facility]) Mar 13, 2020 [id number] SONIA VENCESIE PATIENT [facility] [facility] ([facility]) MEDICARE [facility] ([facility]) Mar 13, 2020 [id number] RU,SONIA NNIFER PATIENT [facility] [facility] ([facility]) MEDICARE [employer] ([facility]) Mar 13, 2020 [id number] [phone] RU,SONIA NNIFER PATIENT [facility] [facility] (R) MEDICARE [facility] (R) Mar 13, 2020 [id number] [phone] RU,SONIA NNIFER PATIENT [facility] ([facility]) MEDICARE ADVANTAGE MEDIC [facility] Mar 13, 2019 [id number] SONIA VENCES PATIENT Selected Encounter This section includes the information on record at MD for the Encounter. Date/Time Encounter Type Encounter Description Reason Pro vider Source Nov 09, 2022 03:30 PM Outpatient En[facility] Encounter Template Text not used by MD Plan of Treatment: Future Appointments (+ 6 months) and Future Tests (+/- 45 days) The Plan of Treatment section includes future care activities for the [facility] This section includes future appointments and future orders which are active, pending or scheduled. Future Appointments This section includes appointments that were scheduled to occur 6 months from the date of the Encounter, up to a maximum of 20 appointments. The data comes from all [facility]. Appointment Date/Time Appointment Type Appointme nt Facility Name Nov 22, 2022 02:00 PM AMBULATORY - NONE [facility] Nov 28, 2022 02:21 PM AMBULATORY - NONE [facility] Dec 05, 2022 12:42 PM [facility] Dec 16, 2022 05:58 PM [facility] Jan 19, 2023 09:00 AM AMBULATORY - PSYCHIATRY [facility] Jan 19, 2023 09:30 AM AMBULATORY - PSYCHIATRY [facility] Feb 27, 2023 09:16 PM AMBULATORY - NONE [facility] Mar 21, 2023 05:01 PM AMBULATORY - NONE [facility] Apr 03, 2023 02:14 PM AMBULATORY - MEDICINE [facility] Active, Pending, and Scheduled Orders This section includes a listing of several types of active, pending, and scheduled orders, including clinic medications orders, diagnostic test orders, procedure orders and consult orders; where the start date of the order is 45 days before the date of the Encounter or 45 days after the date of theEncounter. The data comes from all [facility]. Test Date/Time Test Type Test Details Facility Name Nov 22, 2022 12:00 AM Laboratory - Chemi stry Order TSH W/REFLEX TO FREE T4 PLASMA SP ONCE [facility] Social History: Smoking Status (Most current) and Tobacco Use (All prior to encounter date) This section includes the most current, and the historical, smoking and tobacco- related health factors from the MD facility where the Encounter took place. Current Smoking Status This section includes the most current smoking, or tobacco-related health factor, from the MD facility where the Encounter took place. Date/Time Current Smoking Status Comment Facil ity Jun 17, 2015 07:02 AM FORMER TOBACCO USE >1Y <7Y [facility] Tobacco Use History This section includes a history of the smoking, or tobacco-related health factors, that were collected on or before the date of the Encounter. The data comes from the [facility] where the Encounter took place. Date/Time Smoking Status/Tobacco Use Comment F acility July 30, 2014 09:31 AM FORMER TOBACCO USE <1Y [facility] Encounter Notes: All associated encounter notes This section contains the clinical notes associated to the Encounter. Date/Time Encounter Note(s) Provider Source Nov 09, 2022 04:09 PM NO SHOW NOTE: LOCAL TITLE: NO SHOW NOTE STANDARD TITLE: NO SHOW NOTE DATE OF NOTE: NOV 09, 2022@16:09 ENTRY DATE: NOV 09, 2022@16:09:53 AUTHOR: SOCO WASHINGTON EXP COSIGNER: URGENCY: STATUS: COMPLETED Patient did not present for today's F2F appt, nor answer phone for today's appointment. I called patient at number listed on CPRS, no answer, left message for patient to contact clinic if needed and that someone from the clinic would also reach out to reschedule. Record was reviewed. I have not met patient, risk assessment taken from most recent MH notes in CPRS. Risk Factors: Substance use, impulsivity, maladaptive coping skills Protective Factors: Stable housing, future oriented, economically resourced, service connected No High Risk Suicide Flag. Clinician Judgment of Risk: low risk for safety concerns, given risk factors, protective factors above. No evidence for imminent risk. Plan Based on Clinician Judgment of Risk: - 3 outreach attempts per protocol: - Phone call to patient made today. - Please send letter regarding no-show today. - help desk associate staff to contact patient for 2nd and 3rd phone outreach attempt if needed. /jose armando/ SOCO WASHINGTON MD STAFF PSYCHIATRIST Signed: 11/09/2022 16:11 Receipt Acknowledged By: 11/10/2022 09:31 /jose armando/ PHILLIP CISNEROS 11/10/2022 11:50 /es/ DENNY GUIDRY Lead [facility] SOCO WASHINGTON [facility]
--- OUTSIDE RECORDS SUMMARY | 2023-07-06 21:10 | XMS_ITS | Encounter Summary ---
Author Name [employer] Organization [facility] [employer] [employer] Address [address] [place] [address] Support Name Relationship Address Phone RUDIAZ Next of Kin [phone] [address] [phone] DIAZ VENCES Emergency Contact [phone] [address] [phone] Insurance Providers: All historical and current Section [...] Patient's Relationship to Policy [facility] ([facility]) MEDICARE ADVANTAGE MCR ([facility]) Jan 12, 2016 [id number] [phone] SONIA VENCES PATIENT [facility] (WNR) MEDICARE ADVANTAGE MCR (R) Mar 13, 2020 [id number] SONIA VENCES PATIENT [facility] (WNR) MEDICARE [facility] (WNR) Mar 13, 2020 [id number] RU,SONIA NNIFER PATIENT [facility] (WNR) MEDICARE ADVANTAGE MCR (WNR) Mar 13, 2020 [id number] SONIA VENCES PATIENT [facility] (WNR) MEDICARE ADVANTAGE MCR (WNR) Mar 13, 2020 [id number] SONIA VENCESIFER PATIENT [facility] (WNR) MEDICARE ADVANTAGE MEDIC MARY ELLEN BRADLEY Mar 13, 2019 [id number] SONIA VENCES PATIENT Selected Encounter This section includes the information on record at [place] for the Encounter. Date/Time Encounter Type Encounter Description Reason Provider Source Apr 03, 2023 02:14 PM EMERGENCY DEPT VISIT LOW [facility] EMERGENCY DEPT ICD-10-CM R21 Rash and other nonspecific skin eruption ATIYA ROLLINS Braulio Encounter Template Text not used by [place] Assessments - Encounter Diagnoses This section includes the primary and secondary diagnoses documented for the Encounter. Date/Time Primary/Secondary Diagnosis Diagnosis Name Provider Source Apr 03, 2023 04:36 PM PRIMARY Rash and other nonspecific skin eruption [facility] Apr 03, 2023 04:36 PM SECONDARY [facility] Plan of Treatment: Future Appointments (+ 6 months) and Future Tests (+/- 45 days) The Plan of Treatment section includes future care activities for the patient from all [place] [facility]. This section includes future appointments and future orders which are active, pending or scheduled. Future Appointments This section includes appointments that were scheduled to occur 6 months from the date of the Encounter, up to a maximum of 20 appointments. The data comes from all [place] treatment facilities. Appointment Date/Time Appointment Type Appointme nt Facility Name May 30, 2023 11:00 AM AMBULATORY - SURGERY [facility] Vital Signs: All taken on the encounter date This section contains inpatient and outpatient Vital Signs collected on the date of the Encounter. Date/Time Temperature Pulse Blood Pressure Respiratory Rate SP02 Pain Height Weight Body Mass Index Source Apr 03, 2023 03:28 PM 97.7 F 69 /min 99/55 mm[Hg] 15 /min 0 [facility] Social History: Smoking Status (Most current) and Tobacco Use (All prior to encounter date) This section includes the most current, and the historical, smoking and tobacco- related health factors from the [facility] where the [facility] place. Current Smoking Status This section includes the most current smoking, or tobacco-related health factor, from the [place] facility where the Encounter took place. Date/Time Current Smoking Status Comment Facil ity Jun 17, 2015 07:02 AM FORMER TOBACCO USE >1Y <7Y [facility] Tobacco Use History This section includes a history of the smoking, or tobacco-related health factors, that were collected on or before the date of the Encounter. The data comes from the [place] facility where the Encounter took place. Date/Time Smoking Status/Tobacco Use Comment Mejia salamanca July 30, 2014 09:31 AM FORMER TOBACCO USE <1Y [facility] Encounter Notes: All associated encounter notes This section contains the clinical notes associated to the Encounter. Date/Time Encounter Note(s) Provider Source Apr 03, 2023 04:37 PM NURSING EMERGENCY DEPT NOTE: LOCAL TITLE: EMERGENCY DEPT NURSING NOTE STANDARD TITLE: NURSING EMERGENCY DEPT NOTE DATE OF NOTE: APR 03, 2023@16:37 ENTRY DATE: APR 03, 2023@16:37:55 AUTHOR: KANDACE LINDER EXP COSIGNER: URGENCY: STATUS: COMPLETED Emergency Department Discharge Education Personal Protective Equipment (PPE): The patient was given education on the following: ECZEMA EDUCATION/TEACH BACK: [facility] discharge instructions have been reviewed with Patient AND had an opportunity to ask questions, has verbalized understanding, have received a copy of the [facility] instructions, Performs skills effectively EDUCATIONAL LEVEL OF UNDERSTANDING: Patient was ready and receptive to education. BARRIERS TO LEARNING: No barriers identified Accompanied by: Self Mode of Transportation: Drive self EXIT ADDITIONAL EDUCATION GIVE: Discharged to: Home /es/ KANDACE LINDER, MSN, RN REGISTERED NURSE Signed: 04/03/2023 16:38 KANDACE LINDER [facility] Apr 03, 2023 04:23 PM EMERGENCY DEPT EDUCATION NOTE: LOCAL TITLE: EMERGENCY DEPT DISCHARGE INSTRUCTIONS STANDARD TITLE: EMERGENCY DEPT EDUCATION NOTE DATE OF NOTE: APR 03, 2023@16:23:19 ENTRY DATE: APR 03, 2023@16:23:19 AUTHOR: ATIYA ROLLINS COSIGNER: URGENCY: STATUS: COMPLETED DISCHARGE INSTRUCTIONS IMPORTANT: [...] instructions below. You were treated today by Atiya Rollins PA-C. Special Information This Information Is About Your Follow Up Care We have sent a consultation request to the Dermatology Clinic on your behalf. The Dermatology Clinic will call you to schedule this appointment. If you have not received a call in 2 days please call , ask for the clinic to which you have been referred, request to schedule the appointment. Future Appointments [none] This Information Is About Your Illness and Diagnosis ECZEMA (Atopic Dermatitis) Eczema is a term used for skin problems that cause the skin to become inflamed or irritated. It may be caused by a reaction to chemicals you have touched (either man-made or natural chemicals). The most common form of eczema is atopic dermatitis. This is a skin condition that causes dry skin and itching, followed by a red, raised rash. Regardless of the cause, the irritation can get worse with heat or cold, sweating and high humidity. How will my eczema be treated? The goal of treatment is to relieve any itching and prevent infection. Lotions and creams may be recommended to keep the skin moist. Ffdw-daq-klldrrr medicines may also be prescribed to help with inflammation. Please follow these instructions: -Use simple soaps and shampoos (hypo-allergenic). -Moisturize frequently. -Use any medicated creams or shampoos as directed. -Avoid those things that make your eczema worse, such as sweating or sudden changes in temperature or humidity. -Be aware of and avoid any foods that may cause an outbreak. The most common food allergies are eggs, peanuts, and cow's milk. -Avoid scratching your skin. This can cause infection. Contact your health care provider as soon as possible if you have any of the following: -your symptoms do not improve. -you have increased redness, swelling, or pain. -you have pus, drainage, or red streaks from the area. -you have fever. -you have any new problems or concerns. IMPORTANT MEDICATION INFORMATION -Your medication [...] have your Medication List reviewed. Pending Medications DIPHENHYDRAMINE HCL 50MG CAP \ Sig: TAKE ONE CAPSULE BY MOUTH EVERY 8 HOURS NEEDED\Indication: FOR ITCHING Active Medications ACETAMINOPHEN TAB 1000MG MOUTH THREE [...] INFECTION *LATHER FOR 5 MINUTES THEN RINSE* LORAZEPAM TAB 1MG MOUTH AT BEDTIME (Non-VA Medication) NON VA MED NOT LISTED MISCELLANEOUS VOLUNTARY DISCLOSURE MEDICINAL CANNABIS EVERY DAY NEEDED (Non-VA Medication) PRIMIDONE TAB 50MG MOUTH AT BEDTIME (Non-VA Medication) Medications Medications in the last 90 days FLUTICAS 100/SALMETEROL 50 INHL DISK 60 INHALE 1 PUFF BY INHALATION TWICE A DAY FOR ASTHMA *RINSE MOUTH AFTER EACH USE* GABAPENTIN 300MG CAP TAKE THREE CAPSULES BY MOUTH TWICE A DAY FOR PAIN AND NUMBNESS LEVOTHYROXINE NA (SYNTHROID) 100MCG TAB TAKE ONE [...] GO TO THE NEAREST EMERGENCY ROOM // ATIYA ROLLINS PA-C Signed: 04/03/2023 16:23 ATIYA ROLLINS [facility] Apr 03, 2023 04:19 PM PHYSICIAN EMERGENCY DEPT NOTE: LOCAL TITLE: EMERGENCY DEPT NOTE STANDARD TITLE: PHYSICIAN EMERGENCY DEPT NOTE DATE OF NOTE: APR 03, 2023@16:19 ENTRY DATE: APR 03, 2023@16:19:18 AUTHOR: ATIYA ROLLINS EXP COSIGNER: URGENCY: STATUS: COMPLETED ED Provider Note DOS: APR 03, 2023 APPLE VENCES Age: 52 : [birth year] CHIEF COMPLAINT: scalp rash, cough CLINICAL IMPRESSION: Unspecified skin eruption to scalp, viral URI ED COURSE/MEDICAL DECISION MAKING: Patient presents to fast-track portion of the ER well-appearing, hemodynamically stable, afebrile, and ambulatory. Patient with history of schizoaffective disorder, chronic pain here for evaluation of multiple scalp lesions as well as cough as below. Patient is currently on doxycycline for treatment of skin rash. On examination she has multiple ulcerated lesions which she is actively picking at. We discussed importance of not touching these wounds and finishing antibiotic course as prescribed. Unclear whether this represents autoimmune rash or infectious rash. Advise finishing doxycycline course, taking Benadryl as needed for itchiness, and following up closely with dermatology, referral provided. Regarding her cough, symptoms seem to be improving and I advised following up with PCP as needed. Wide differential considered for this new clinical complaint with highest attention paid to life-threatening causes of symptoms. Relevant work up including any EKGs, labs, imaging studies, etc. personally reviewed an interpreted separate from reading radiologist. Condition on discharge: Stable, well appearing. After visit summary with pertinent education provided & reviewed with patient. Patient instructed [facility]3 days for symptom recheck. We reviewed reasons to return to the ER including worsening or changing symptoms. HPI: Patient here for evaluation of scalp rash for which she is currently on doxycycline. Patient describes persistently itchy lesions and she thinks that she needs oral clindamycin for this. Has had this issue in the past and says this is the only thing that helps. Also request Medrol Dosepak. Patient also endorses productive cough, though this seems to be improving since she started doxycycline. A complete ROS was reviewed as patient is able, and is negative except as indicated above. Patient's pertinent medical history, surgical history, allergies, medications, and recent visits reviewed. Included in MDM/HPI as relevant and detailed below. Pertinent nursing and recent encounter notes reviewed in CPRS. VITALS: Blood Pressure: 99/55 (04/03/2023 15:28) Pulse: 69 (04/03/2023 15:28) Respiration: 15 (04/03/2023 15:28) Pulse Oximetry: 96% (10/04/2022 18:35) Temperature: 97.7 F [36.5 C] (04/03/2023 15:28) PHYSICAL EXAM: Gen: Well appearing, resting comfortably HEENT: Atraumatic; multiple ulcerated/scabbed lesions scattered across entire scalp, most about 1 cm x 1 cm in size Chest: Breathing comfortably Abd: Nontender Extremities: No gross deformities, no edema Neuro: Alert and oriented, normal speech, flight manager grossly intact, full strength in upper and lower extremities ORDERS: Item Ordered START DATE STOP DATE ENTERED DIPHENHYDRAMINE CAP,OR APR 03, 2023@16:18 Discharge From the [facility] APR 03, 2023 APR 03, 2023@16:17:56 PMH: Active problems - Computerized Problem List is the source for the followin. Recurrent major depressive episodes, severe, with psychosis - suicide attempt/hospitalization [place] 1991 2. Family history of disorder - Fa depression, HT - sister bipolar, hypothyroidism, type 2 DM - Mo - depression - Mat GF prostate cancer 3. 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 H/O: - - vaginal 5. Acne (SNOMED CT 29515423) 6. Closed fracture of fifth metatarsal bone [...] globus pharyngeus 27. Knee pain (SNOMED CT 8070446216) - bilateral, RX hyaluronic and LOCK TENDER injections 28. health maintenance - 05/28/13 normal [...] aureus infection 34. Suicidal ideation (SNOMED CT 5508378) MEDS: Active Outpatient Medications (including Supplies): Active Outpatient [...] TABLET BY ACTIVE MOUTH AT BEDTIME 5) EPINEPHRINE (EQV-EPI-PEN) 0.3MG/0.3ML INJECT 1 PEN ACTIVE DIRECTED NEEDED FOR ANAPHYLACTIC REACTION 6) FEXOFENADINE HCL 180MG TAB TAKE ONE TABLET BY MOUTH ACTIVE EVERY DAY FOR ALLERGIES 7) FLUOXETINE HCL 20MG CAP TAKE TWO CAPSULES BY MOUTH ACTIVE EVERY DAY FOR DEPRESSION 8) FLUTICASONE PROP 50MCG 120D NASAL INHL SPRAY 2 SPRAYS ACTIVE IN EACH NOSTRIL EVERY DAY FOR ALLERGIES 9) KETOCONAZOLE 2% SHAMPOO SHAMPOO SCALP TOPICALLY 3 ACTIVE TIMES WEEKLY SCALP INFECTION *LATHER FOR 5 MINUTES THEN RINSE* Pending Outpatient Medications Status 1) DIPHENHYDRAMINE HCL 50MG CAP TAKE ONE CAPSULE BY PENDING MOUTH EVERY 8 HOURS NEEDED Active Non-VA Medications Status 1) Non-VA ACETAMINOPHEN [...] 50MG TAB 50MG MOUTH AT BEDTIME ACTIVE 17 Total Medications The medication list above was reviewed with the patient at today's visit. I have updated the medications under the Meds tab as appropriate. The patient will be given an updated medication list upon discharge from the Emergency Department. ALLERGIES: FACILITY ALLERGY/ADR -------- No Remote Allergy/ADR Data available for this patient [facility] OXYCODONE [facility] PREDNISONE [facility] QUETIAPINE [facility] TETRACYCLINE [facility] TRAMADOL [facility] TRAZODONE [facility] VENLAFAXINE FAMILY HISTORY: No relevant SOCIAL HISTORY: Non smoker*, feels safe at home PPE including full face mask worn by patient, nursing staff, and ED provider throughout duration of patient's time in the department. Patient endorses no symptoms of COVID-19 nor recent exposures. This note was written using dictation software and may contain dictation- related errors. Please contact me if anything requires clarification. /jose armando/ ATIYA ROLLINS PA-C Signed: 04/03/2023 16:26 ATIYA ROLLINS [facility] Apr 03, 2023 04:04 PM NURSING EMERGENCY DEPT NOTE: LOCAL TITLE: EMERGENCY DEPT NURSING NOTE STANDARD TITLE: NURSING EMERGENCY DEPT NOTE DATE OF NOTE: APR 03, 2023@16:04 ENTRY DATE: APR 03, 2023@16:04:33 AUTHOR: KANDACE LINDER COSIGNER: URGENCY: STATUS: COMPLETED Nursing Focused Assessment: CHIEF COMPLAINT: Patient presents with complaint of PNA and MRSA for months. States she has an abcess on the back of her head and that she is coughing up chunks. Allergies/ADR: TETRACYCLINE (July 30, 2014) VENLAFAXINE (July 30, 2014) OXYCODONE (July 30, 2014) PREDNISONE (July 30, 2014) QUETIAPINE (July 30, 2014) TRAMADOL (July 30, 2014) TRAZODONE (July 30, 2014) Additional allergies not listed: Vital Signs * Blood Pressure: 99/55 (04/03/2023 15:28) Heart Rate: 69 (04/03/2023 15:28) Respirations: 15 (04/03/2023 15:28) Temperature: 97.7 F [36.5 C] (04/03/2023 15:28) Pain: 0 (04/03/2023 15:28) Weight: 151 lb [68.49 kg] (09/27/2022 14:23) [...] Bed in low position and locked /es/ KANDACE LINDER MSN, RN REGISTERED NURSE Signed: 04/03/2023 16:06 KANDACE LINDER [facility] Apr 03, 2023 03:26 PM NURSING EMERGENCY DEPT TRIAGE NOTE: LOCAL TITLE: EMERGENCY DEPARTMENT NURSING TRIAGE NOTE STANDARD TITLE: NURSING EMERGENCY DEPT TRIAGE NOTE DATE OF NOTE: APR 03, 2023@15:26 ENTRY DATE: APR 03, 2023@15:26:14 AUTHOR: CIRA ARREAGA COSIGNER: URGENCY: STATUS: COMPLETED Emergency Department/Urgent Care Center Triage Patient age:52 Sex: FEMALE On arrival patient was: AMBULATORY Patient phone number: Allergies: TETRACYCLINE (July 30, 2014) VENLAFAXINE (July 30, 2014) OXYCODONE (July 30, 2014) PREDNISONE (July 30, 2014) QUETIAPINE (July 30, 2014) TRAMADOL (July 30, 2014) TRAZODONE (July 30, 2014) Subjective/Chief Complaint: Cough, scalp infection Objective: Pt. presents to ED with complaints of a productive cough and mrsa on her scalp. Pt. was seen at a outside ED 2 days ago and is on a abx for same. The patient is not a fall risk. Vital Signs * Temperature 97.7 F (36.5 C) Pulse 69 Respirations 15 Blood Pressure 99/55 Pain scale recorded: 0 Pulse Oximetry 99 Room Air Emergency Severity Index (BRITTANY) level Level 4 [...] TABLET BY ACTIVE MOUTH AT BEDTIME 5) EPINEPHRINE (EQV-EPI-PEN) 0.3MG/0.3ML INJECT 1 PEN ACTIVE DIRECTED NEEDED FOR ANAPHYLACTIC REACTION 6) FEXOFENADINE HCL 180MG TAB TAKE ONE TABLET BY MOUTH ACTIVE EVERY DAY FOR ALLERGIES 7) FLUOXETINE HCL 20MG CAP TAKE TWO CAPSULES BY MOUTH ACTIVE EVERY DAY FOR DEPRESSION 8) FLUTICASONE PROP 50MCG 120D NASAL INHL SPRAY 2 SPRAYS ACTIVE IN EACH NOSTRIL EVERY DAY FOR ALLERGIES 9) KETOCONAZOLE 2% SHAMPOO SHAMPOO SCALP TOPICALLY 3 ACTIVE TIMES WEEKLY SCALP INFECTION *LATHER FOR 5 MINUTES THEN RINSE* Active Non-VA Medications Status 1) Non-VA ACETAMINOPHEN [...] 50MG TAB 50MG MOUTH AT BEDTIME ACTIVE 16 Total Medications Current Problems: Recurrent major depressive episodes, sevFamily history of disorder ([facility] [id number]) Affective personality trait ([facility] 4669714D/O: ([facility] [id number]) Acne ([facility] 27742364) Closed fracture of fifth metatarsal bone ([facility] 92720029) Gastroesophageal reflux disease (SCT 235Anxiety disorder ([facility] [id number]) Tear of medial meniscus of knee ([facility] 302Mild persistent asthma ([facility] 889250602) Hypothyroidism ([facility] 03603466) Celiac disease ([facility] 499949403) Steatosis of liver ([facility] 945558022) Chronic low back pain ([facility] 115401202) Nicotine dependence ([facility] 03010217) Schizoaffective disorder ([facility] 06525748) Perennial allergic rhinitis ([facility] 9359343Gyzsyk migraine ([facility] 99329174) Cyst of breast ([facility] 277149196) Chronic pain syndrome ([facility] 958619862) Mixed hyperlipidemia ([facility] 200470847) Angioedema of tongue ([facility] 682857865) MDD, Recurrent, unspec (ICD-9-CM 296.30)Herpes labialis ([facility] 2633179) Acute gastric ulcer ([facility] 35363357) Dysphagia ([facility] 17218120) Knee pain ([facility] 6869432825) health maintenance (ICD-10-CM R69.) Lumbar disc prolapse with radiculopathy Morbid obesity ([facility] 634862215) Refractory migraine with aura (SCT 93176Dedjajgbx of right hip region ([facility] [id number]) History of methicillin resistant StaphylSuicidal ideation ([facility] 4712849) Identification of Seniors at Risk (ISAR):* Defer screen <75 Suicide Screen: [place] Suicide Severity Rating Scale (C-SSRS) screener 1. [...] to responses to other questions. /jose armando/ CIRA ARREAGA RN REGISTERED NURSE Signed: 04/03/2023 15:29 CIRA ARREAGA [facility]
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
--- OUTSIDE RECORDS SUMMARY | 2023-07-06 21:10 | XMS_ITS | Encounter Summary ---
Author Name [facility] Organization [facility] Address [address] [place] [address] Support Name Relationship Address Phone RU DIAZ Next of Kin [phone] [address] [address] DIAZ VENCES Emergency Contact [address] VAR[address] POL[address]. KAYLA BOND [phone] Insurance Providers: All historical and current Section [...] Patient's Relationship to Policy [facility] ([facility]) MEDICARE ADVANTAGE MCR ([facility]) Jan 12, 2016 [id number] [phone] SONIA VENCESIFER PATIENT [employer] [facility] ([facility]) MEDICARE ADVANTAGE MCR ([facility]) Mar 13, 2020 [id number] SONIA VENCESIE PATIENT [employer] [facility] ([facility]) MEDICARE ADVANTAGE MCR ([facility]) Mar 13, 2020 [id number] RU,SONIA CHARLESIFER PATIENT [employer] [facility] ([facility]) MEDICARE ADVANTAGE MCR ([facility]) Mar 13, 2020 [id number] RU,SONIA NNIFER PATIENT [employer] [facility] ([facility]) MEDICARE ADVANTAGE MCR ([facility]) Mar 13, 2020 [id number] [phone] RU,SONIA CHARLESIFER PATIENT [facility] ([facility]) MEDICARE ADVANTAGE MEDIC MARY ELLEN BRADLEY Mar 13, 2019 [id number] SONIA VENCES PATIENT Selected Encounter This section includes the information on record at CT for the Encounter. Date/Time Encounter Type Encounter Description Reason Provider Source Sep 27, 2022 02:00 PM OFFICE O/P NEW MOD 45-59 MIN PRIMARY CARE/MEDICINE ICD-10-CM F41.9 Anxiety disorder, unspecified EUGENE GRANADOS Braulio Encounter Template Text not used by CT Assessments - Encounter Diagnoses This section includes the primary and secondary diagnoses documented for the Encounter. Date/Time Primary/Secondary Diagnosis Diagnosis Name Provider Source Sep 27, 2022 03:06 PM PRIMARY Anxiety disorder, unspecified EUGENE GRANADOS [facility] Sep 27, 2022 03:06 PM SECONDARY Migraine with aura, intractable, without status migrainosus SIMONEEUGENE SÁNHCEZ [facility] Plan of Treatment: Future Appointments (+ 6 months) and Future Tests (+/- 45 days) The Plan of Treatment section includes future care activities for the [facility] This section includes future appointments and future orders which are active, pending or scheduled. Future Appointments This section includes appointments that were scheduled to occur 6 months from the date of the Encounter, up to a maximum of 20 appointments. The data comes from all CT treatment facilities. Appointment Date/Time Appointment Type Appointme nt Facility Name Oct 04, 2022 06:29 PM AMBULATORY - [place]ICINE [place] [facility] Oct 12, 2022 06:00 PM AMBULATORY - NONE [place] [facility] Oct 31, 2022 12:09 PM AMBULATORY - NONE [place] [facility] Nov 01, 2022 03:11 PM AMBULATORY - NONE [place] [facility] Nov 09, 2022 03:30 PM AMBULATORY [place] [facility] Nov 22, 2022 02:00 PM AMBULATORY - NONE [place] [facility] Nov 28, 2022 02:21 PM AMBULATORY - NONE [place] [facility] Dec 05, 2022 12:42 PM AMBULATORY - NONE [place] [facility] Dec 16, 2022 05:58 PM AMBULATORY - NONE [place] [facility] Jan 19, 2023 09:00 AM AMBULATORY [place] [facility] Jan 19, 2023 09:30 AM AMBULATORY [place] [facility] Feb 27, 2023 09:16 PM AM[facility]ULATORY - NONE [place] [facility] Mar 21, 2023 05:01 PM [facility] Lab Results: +/- 30 days of the encounter This section includes the Chemistry and Hematology Lab Results on record with CT for the patient. Radiology Reports and Pathology Reports are provided separately, in subsequent sections. Lab Results This section contains the Chemistry/Hematology Results that were resulted 30 days before or 30 daysafter the date of the Encounter. Date/Time Source Result Type Result - Unit Interpretation Reference Range Comment Sep 27, 2022 04:49 PM [facility] C.TRACHOMATIS/N.GONORRHEA DNA Specimen Type: URINE No comment entered. Ordering Provider: JOSE GRANADOS SA Report Released Date/Time: Sep 27, 2022 03:02 PM Reporting Lab: [facility] [id number] Performing Lab: [facility] [id number] C.TRACHOMATIS DNA NOT DETECTED N.GONORRHEA DNA NOT DETECTED CT/NG INTERPRETATION Infectious agent DNA is not detected by this assay Sep 27, 2022 04:49 PM [facility] C.TRACHOMATIS/N.GONORROEAE,RECTAL Specimen Type: RECTAL Comment: Specimen too short for repeat testing [place]ation [place]: [place] [address]03-22,TTP Test not performed. Initial testing necessitated a repeat, but there was insufficient sample to perform repeat. Test Performed by [facility], [facility], [address] [place] [address] Tigre Valdovinos M.D., Ph.D., Director of Laboratories , [place] [id number] Ordering Provider: JOSE GRANADOS SA Report Released Date/Time: Sep 27, 2022 03:02 PM Reporting Lab: [facility] [id number] Performing Lab: [address] .C TRACHOMATIS,RNA TNP .N GONORROEAE,RNA TNP Sep 27, 2022 04:49 PM [facility] C.TRACHOMATIS/N.GONORROEAE,THROAT Specimen Type: THROAT Comment: Methodology: Land Leveler Mediated Amplification(T MA) to detect RNA. The analytical performance characteristics of this assay have been determined by [facility] [place] [place]. The modifications have not been cleared or approved by the FDA. This assay has been validated pursuant to the CLIA regulations and is used for clinical purposes. Test Performed by [facility], [facility], [address] [place] [address] Tigre Valdovinos M.D., Ph.D., Director of Laboratories , CLIA [id number] Ordering Provider: JOSE GRANADOS SA Report Released Date/Time: Sep 27, 2022 03:02 PM Reporting Lab: [facility] [id number] Performing Lab: [address] .C TRACHOMATIS,RNA Not Detected See_Commen t .N GONORROEAE,RNA Not Detected See_Commen t Sep 27, 2022 03:38 PM [facility] HIV AG/AB SCREEN Specimen Type: SERUM No comment entered. Ordering Provider: JOSE GRANADOS SA Report Released Date/Time: Sep 27, 2022 03:02 PM Reporting Lab: [facility] [id number] Performing Lab: [facility] [address] HIV AG/AB SCREEN NEGATIVE See_Commen t Sep 27, 2022 03:38 PM [facility] ANTI-HEP C(EIA) Specimen Type: SERUM No comment entered. Ordering Provider: JOSE GRANADOS SA Report Released Date/Time: Sep 27, 2022 03:02 PM Reporting Lab: [facility] [id number] Performing Lab: [facility] [address] ANTI-HEP C(EIA) NEGATIVE See_ Commen t Sep 27, 2022 03:38 PM [facility] SYPHILIS ANTIBODY Specimen Type: SERUM No comment entered. Ordering Provider: JOSE GRANADOS SA Report Released Date/Time: Sep 27, 2022 03:02 PM Reporting Lab: [facility] [id number] Performing Lab: [facility] [phone] SYPHILIS ANTIBODY NEGATIVE Vital Signs: All taken on the encounter date This section contains inpatient and outpatient Vital Signs collected on the date of the Encounter. Date/Time Temperature Pulse Blood Pressure Respiratory Rate SP02 Pain Height Weight Body Mass Index Source Sep 27, 2022 02:23 PM 97.6 F 70 /min 108/59 mm[Hg] 18 /min 97 % 0 61.5 in 151 lb 28 [facility] Social History: Smoking Status (Most current) and Tobacco Use (All prior to encounter date) This section includes the most current, and the historical, smoking and tobacco- related health factors from the [facility] where the Encounter took place. Current Smoking Status This section includes the most current smoking, or tobacco-related health factor, from the [facility] where the Encounter took place. Date/Time Current Smoking Status Comment Facil ity Jun 17, 2015 07:02 AM FORMER TOBACCO USE >1Y <7Y [facility] Tobacco Use History This section includes a history of the smoking, or tobacco-related health factors, that were collected on or before the date of the Encounter. The data comes from the [facility] where the Encounter took place. Date/Time Smoking Status/Tobacco Use Comment F acility July 30, 2014 09:31 AM FORMER TOBACCO USE <1Y [facility] Encounter Notes: All associated encounter notes This section contains the clinical notes associated to the Encounter. Date/Time Encounter Note(s) Provider Source Jan 02, 2023 08:21 AM ADDENDUM: LOCAL TITLE: Addendum STANDARD TITLE: ADDENDUM DATE OF NOTE: JAN 02, 2023@08:21:12 ENTRY DATE: JAN 02, 2023@08:21:13 AUTHOR: JORGITO GRANADOS EXP COSIGNER: URGENCY: STATUS: COMPLETED Pt called for med renewals (completed). TSH overdue for recheck and is ordered. ----> PACT MSA <---- please call pt and arrange testing /jose armando/ Jorgito Granados MD Physician Signed: 01/02/2023 08:21 Receipt Acknowledged By: 01/02/2023 09:28 /jose armando/ VIVIENNE [facility] [employer] for TRE Murcia ELVER --- Original Document --- 09/27/22 MEDICINE CLINIC NOTE: Assessment and plan: ------> CC PCP Dr Bj Noe at [facility] (retired, new PCP pending) ------> CC psych Dr Avril Nava ------> CC GI BPD PTSD MST h/o SI -meds and therapy [facility] Acne/folliculitis of scalp c/b Picking h/o MRSA -mged by derm for skin treatment and MH for compulsive picking habits Chronic migraines -Med MJ Persistent asthma Perennial allergies -ICS/LABA -prn albuterol (using once a week) -flonase -francia -singulair Hypothyroidism -levothyroxine 112 mcg qday---> DECREASE to 100 mcg qday given chronically suppressed TSH -repeat TSH in 8 weeks Health maintenance ---> term VD -pap/HPV nml co testing 11/2017--> due again 11/2022. She has declined scheduling at this time. MST flashbacks causing her sig stress at present. Will call to schedule as soon as she is psychologically prepared -LMP: occuring every few months, 3-4 days duration, no menorrhagia -STI: no h/o infection. would like testing today including triple swab. Ordered -mammogram ordered -CLP: [facility] September 2022, normal. rescope in 2032 -Lipids and A1c utd -LDCT: n/a--> 1/2 PPD since age 21 (15 pk yr history) -AAA US at 67 -DEXA at 67 RTC for pap/HPV when she is ready. She can call anytime and arrange RTC in one year for annual. Will see what labs she is due for at the time and order accordingly. Nurse's notes reviewed from today. APPLE VENCES is a 51 year old FEMALE with the following Chief complaint: est care Family history: MOP/FOP depression neg colon cancer neg breast cancer SIS: mass in her uterus, unknown diagnosis Social: [employer] No work since d/t migraines lives alone TOB: 1/2 PPD since age 21 ETOH: pretty close to none Drug: MJ rx HPI/ROS:as above Active problems - Computerized Problem List is the source for the followin. Recurrent major depressive episodes, severe, with psychosis - suicide attempt/hospitalization [facility] 1991 2. Family history of disorder - Fa depression, HT - sister bipolar, hypothyroidism, type 2 DM - Mo - depression - Mat GF prostate cancer 3. 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 H/O: - - vaginal 5. Acne (SNOMED CT 79022370) 6. Closed fracture of fifth metatarsal bone [...] globus pharyngeus 27. Knee pain (SNOMED CT 1747319827) - bilateral, RX hyaluronic and LABORER POLE CREW injections 28. health maintenance - 05/28/13 normal [...] aureus infection 34. Suicidal ideation (SNOMED CT 6044574) Allergies: TETRACYCLINE (July 30, 2014) VENLAFAXINE (July 30, 2014) OXYCODONE (July 30, 2014) PREDNISONE (July 30, 2014) QUETIAPINE (July 30, 2014) TRAMADOL (July 30, 2014) TRAZODONE (July 30, 2014) EXAM: VS: Temp: 97.6 F [36.4 C] (09/27/2022 14:23) BP: 108/59 (09/27/2022 14:23) Pulse:70 (09/27/2022 14:23) Resp: 18 (09/27/2022 14:23) Pain: 0 (09/27/2022 14:23) Weight: WEIGHTS IN LAST 6 MONTHS - NONE FOUND General: NAD, Alert and oriented HEENT: PERRL EOMI Lungs: CTAB Heart: RRR Abd: Soft NABS Ext: calves soft and nontender, no edema Gait: stable and independant Medication Reconciliation: Education Evaluations *Was medication education provided for NEW medications or CHANGES to medications? (including medication name, dose, route, reason for use, and potential side effects). Yes. Education on what medications? Medication changes Education provided to the following: Patient Type of education provided: Verbal Written materials Assessment of patient understanding of education content. Verbalized understanding TERATOGENIC MED & CONTRACEPTION REVIEW (Optional)... MEDICATION RECONCILIATION Review Done: The medication list shown below was verified for accuracy and it includes all pending medications/active medications/all medications or discontinued within the last 90 days/all remote medications and non-VA medications. If a given category (i.e. remote meds) is not shown, that means that a patient doesn't have a medication(s) in that category. Allergies listed below were also reviewed/updated for accuracy. Allergies/ADR from [facility] may not display in CPRS. Use JLV MRT5 - Allergies/ADRs FACILITY ALLERGY/ADR -------- No Remote Allergy/ADR Data available for this patient [facility] OXYCODONE [facility] PREDNISONE [facility] QUETIAPINE [facility] TETRACYCLINE [facility] TRAMADOL [facility] TRAZODONE [facility] VENLAFAXINE Active and Recently Outpatient Medications (including Supplies): Issue Date Status Last Fill Active Outpatient Medications Refills Expiration 1) ALBUTEROL 90MCG (CFC-F) 200D ORAL INHL ACTIVE Issu:06-28-22 Qty: 2 for 50 days Sig: INHALE 1-2 Refills: 11 Last:06-29-22 PUFFS BY MOUTH EVERY 4 HOURS NEEDED Expr:06-29-23 FOR SHORTNESS OF BREATH SHAKE WELL (FOR IMMEDIATE RELIEF). FOR SHORTNESS OF BREATH 2) CLINDAMYCIN PHOSPHATE 1% TOP SOLN Qty: ACTIVE Issu:09-07-22 60 for 30 days Sig: APPLY TO AFFECTED Refills: 1 Last:09-07-22 AREA TOPICALLY TWICE A DAY NEEDED Expr:09-08-23 FOR FOLLICULITIS EXTERNAL USE ONLY 3) CLONIDINE HCL 0.1MG TAB Qty: 60 for 30 ACTIVE Issu:07-12-22 days Sig: TAKE ONE TABLET BY MOUTH Refills: 3 Last:07-13-22 TWICE A DAY Expr:07-13-23 4) DIVALPROEX 500MG 24HR (ER) SA TAB Qty: ACTIVE Issu:07-12-22 90 for 90 days Sig: TAKE ONE TABLET Refills: 2 Last:09-02-22 BY MOUTH AT BEDTIME Expr:07-13-23 5) DOXYCYCLINE HYCLATE 100MG TAB Qty: 14 ACTIVE Issu:09-06-22 for 7 days Sig: TAKE ONE TABLET BY Refills: 0 Last:09-06-22 MOUTH TWICE A DAY FOR CELLULITIS Expr:10-06-22 6) EPINEPHRINE (EQV-EPI-PEN) 0.3MG/0.3ML ACTIVE Issu:06-28-22 Qty: 2 for 10 days Sig: INJECT 1 PEN Refills: 3 Last:06-29-22 DIRECTED NEEDED FOR Expr:06-29-23 ANAPHYLACTIC REACTION 7) FEXOFENADINE HCL 180MG TAB Qty: 90 for ACTIVE Issu:06-28-22 90 days Sig: TAKE ONE TABLET BY MOUTH Refills: 3 Last:06-29-22 EVERY DAY FOR ALLERGIES Expr:06-29-23 8) FLUOXETINE HCL 20MG CAP Qty: 180 for 90 ACTIVE Issu:08-14-22 days Sig: TAKE TWO CAPSULES BY MOUTH Refills: 2 Last:08-14-22 EVERY DAY FOR DEPRESSION Expr:08-15-23 9) FLUTICASONE PROP 50MCG 120D NASAL INHL ACTIVE Issu:06-28-22 Qty: 3 for 90 days Sig: SPRAY 2 Refills: 3 Last:06-29-22 SPRAYS IN EACH NOSTRIL EVERY DAY FOR Expr:06-29-23 ALLERGIES 10) KETOCONAZOLE 2% SHAMPOO Qty: 120 for 30 ACTIVE Issu:06-22-22 days Sig: SHAMPOO SCALP TOPICALLY 3 Refills: 4 Last:09-06-22 TIMES WEEKLY SCALP INFECTION *LATHER Expr:06-23-23 FOR 5 MINUTES THEN RINSE* 11) MECLIZINE HCL 25MG CHEW TAB Qty: 30 for ACTIVE Issu:11-29-21 30 days Sig: CHEW ONE TABLET BY MOUTH Refills: 11 Last:11-29-21 TWICE A DAY NEEDED FOR MIGRAINE Expr:11-30-22 ASSOCIATED DIZZINESS -MAY BE CHEWED OR SWALLOWED 12) MELATONIN 3MG CAP/TAB Qty: 300 for 90 ACTIVE Issu:08-02-22 days Sig: TAKE 3 TAB (9 MG) 3MG BY Refills: 0 Last:08-03-22 MOUTH AT BEDTIME FOR SLEEP FOR SLEEP Expr:10-31-22 Issue Date Status Last Fill Pending Outpatient Medications Refills Expiration 1) LEVOTHYROXINE NA (SYNTHROID) 100MCG TAB PENDING Qty: 90 Sig: TAKE ONE TABLET BY MOUTH Refills: 0 EVERY DAY Issue Date Status Last Fill Inactive Outpatient Medications Refills Expiration 1) AMOXICILLIN 500MG CAP Qty: 30 for 5 Issu:08-14-22 days Sig: TAKE TWO CAPSULES BY MOUTH Refills: 0 Last:08-14-22 THREE TIMES A DAY FOR PNEUMONIA Expr:09-13-22 2) CAMPHOR 0.5/MENTHOL 0.5% LOTION Qty: Issu:06-30-21 450 for 30 days Sig: APPLY THIN LAYER Refills: 11 Last:06-30-21 TOPICALLY FOUR TIMES A DAY NEEDED Expr:07-01-22 3) CLINDAMYCIN PHOSPHATE 1% TOP SOLN Qty: DISCONTINUED Issu:06-28-22 60 for 30 days Sig: APPLY TO AFFECTED Refills: 0 Last:08-01-22 AREA TOPICALLY TWICE A DAY NEEDED Expr:06-29-23 FOR FOLLICULITIS EXTERNAL USE ONLY 4) CLONIDINE HCL 0.1MG TAB Qty: 60 for 30 DISCONTINUED Issu:06-16-21 days Sig: TAKE ONE TABLET BY MOUTH Refills: 0 Last:02-08-22 TWICE A DAY Expr:06-17-22 5) DIVALPROEX 500MG 24HR (ER) SA TAB Qty: DISCONTINUED Issu:06-14-22 90 for 90 days Sig: TAKE ONE TABLET Refills: 0 Last:06-14-22 BY MOUTH AT BEDTIME Expr:09-12-22 6) FLUOXETINE HCL 20MG CAP Qty: 180 for 90 DISCONTINUED Issu:07-12-22 days Sig: TAKE TWO CAPSULES BY MOUTH (EDIT) Last:09-01-22 EVERY DAY Refills: 2 Expr:07-13-23 7) FLUOXETINE HCL 20MG CAP Qty: 180 for 90 DISCONTINUED Issu:06-15-21 days Sig: TAKE TWO CAPSULES BY MOUTH Refills: 1 Last:06-13-22 EVERY DAY Expr:06-16-22 8) FLUTICAS 100/SALMETEROL 50 INHL DISK 60 Issu:06-28-22 Qty: 3 for 90 days Sig: INHALE 1 PUFF Refills: 0 Last:09-02-22 BY INHALATION TWICE A DAY FOR ASTHMA Expr:09-26-22 *RINSE MOUTH AFTER EACH USE* 9) FLUTICAS 100/SALMETEROL 50 INHL DISK 60 DISCONTINUED Issu:06-14-22 Qty: 3 for 90 days Sig: INHALE 1 PUFF Refills: 0 Last:06-14-22 BY INHALATION TWICE A DAY FOR ASTHMA Expr:09-12-22 *RINSE MOUTH AFTER EACH USE* 10) GABAPENTIN 300MG CAP Qty: 540 for 90 Issu:06-28-22 days Sig: TAKE THREE CAPSULES BY Refills: 0 Last:06-29-22 MOUTH TWICE A DAY FOR PAIN AND Expr:09-26-22 NUMBNESS 11) LEVOTHYROXINE NA (SYNTHROID) 112MCG TAB DISCONTINUED Issu:06-14-22 Qty: 90 for 90 days Sig: TAKE ONE Refills: 0 Last:06-14-22 TABLET BY MOUTH EVERY DAY FOR THYROID Expr:09-12-22 12) MECLIZINE HCL 25MG CHEW TAB Qty: 30 for DISCONTINUED Issu:11-22-21 30 days Sig: CHEW ONE TABLET BY MOUTH Refills: 11 Last:11-22-21 TWICE A DAY NEEDED FOR MIGRAINE Expr:11-23-22 ASSOCIATED DIZZINESS -MAY BE CHEWED OR SWALLOWED 13) MONTELUKAST NA 10MG TAB Qty: 90 for 90 Issu:06-28-22 days Sig: TAKE ONE TABLET BY MOUTH Refills: 0 Last:06-29-22 EVERY EVENING FOR ASTHMA Expr:09-26-22 14) MONTELUKAST NA 10MG TAB Qty: 90 for 90 DISCONTINUED Issu:06-14-22 days Sig: TAKE ONE TABLET BY MOUTH Refills: 0 Last:06-14-22 EVERY EVENING FOR ASTHMA Expr:09-12-22 15) MUPIROCIN 2% OINT Qty: 22 for 14 days Issu:05-31-21 Sig: APPLY LIBERAL AMOUNT TOPICALLY Refills: 3 Last:05-31-21 THREE TIMES A DAY Expr:06-01-22 16) SULFAMETHOXAZOLE 800/TRIMETH 160MG TAB Issu:08-12-22 Qty: 10 for 5 days Sig: TAKE 1 TABLET Refills: 0 Last:08-12-22 BY MOUTH TWICE A DAY FOR 5 DAYS FOR Expr:09-11-22 FOLLICULITIS, SINUSITIS 17) SULFAMETHOXAZOLE 800/TRIMETH 160MG TAB Issu:06-13-22 Qty: 20 for 10 days Sig: TAKE 1 Refills: 0 Last:06-13-22 TABLET BY MOUTH TWICE A DAY Expr:07-13-22 18) TIZANIDINE HCL 4MG TAB Qty: 60 for 40 Issu:09-24-21 days Sig: TAKE ONE-HALF TABLET BY Refills: 2 Last:06-13-22 MOUTH THREE TIMES A DAY NEEDED FOR Expr:09-25-22 MUSCLE SPASMS/TIGHTNESS Start Date Active Non-VA Medications Refills Expiration 1) Non-VA ACETAMINOPHEN 500MG TAB Sig: ACTIVE 1000MG MOUTH THREE TIMES A DAY 2) Non-VA ASPIRIN 400MG/CAFFEINE 30MG TAB ACTIVE Si TABLET MOUTH EVERY DAY NEEDED 3) Non-VA BENZOYL PEROXIDE 10% (WATER ACTIVE BASED) GEL Sig: THIN LAYER EVERY DAY 4) Non-VA IBUPROFEN 200MG TAB [facility] ACTIVE MOUTH FOUR TIMES A DAY NEEDED 5) Non-VA LORAZEPAM 1MG TAB [facility] MOUTH ACTIVE AT BEDTIME 6) Non-VA NON VA MED NOT LISTED ACTIVE MISCELLANEOUS Sig: VOLUNTARY DISCLOSURE MEDICINAL CANNABIS EVERY DAY NEEDED 7) Non-VA PRIMIDONE 50MG TAB [facility] ACTIVE MOUTH AT BEDTIME 38 Total Medications Time spent with patient, chart review, documentation, and coordination of care: 50 minutes /es/ Jorgito Granados MD Physician Signed: 09/27/2022 15:06 JORGITO GRANADOS [facility] Sep 27, 2022 02:32 PM INTERNAL MEDICINE NOTE: LOCAL TITLE: MEDICINE CLINIC NOTE STANDARD TITLE: INTERNAL MEDICINE NOTE DATE OF NOTE: SEP 27, 2022@14:32 ENTRY DATE: SEP 27, 2022@14:32:31 AUTHOR: JORGITO GRANADOS EXP COSIGNER: URGENCY: STATUS: COMPLETED MEDICINE CLINIC NOTE Has ADDENDA Assessment and plan: ------> CC PCP Dr Bj Noe at [facility] (retired, new PCP pending) ------> CC psych Dr Avril Nava ------> CC GI BPD PTSD MST h/o SI -meds and therapy [facility] Acne/folliculitis of scalp c/b Picking h/o MRSA -mged by derm for skin treatment and for compulsive picking habits Chronic migraines -Med MJ Persistent asthma Perennial allergies -ICS/LABA -prn albuterol (using once a week) -flonase -francia -singulair Hypothyroidism -levothyroxine 112 mcg qday---> DECREASE to 100 mcg qday given chronically suppressed TSH -repeat TSH in 8 weeks Health maintenance ---> term VD -pap/HPV nml co testing 11/2017--> due again 11/2022. She has declined scheduling at this time. MST flashbacks causing her sig stress at present. Will call to schedule as soon as she is psychologically prepared -LMP: occuring every few months, 3-4 days duration, no menorrhagia -STI: no h/o infection. would like testing today including triple swab. Ordered -mammogram ordered -CL[facility], normal. rescope in 2032 -Lipids and A1c utd -LDCT: n/a--> 1/2 PPD since age 21 (15 pk yr history) -AAA US at 67 -DEXA at 67 RTC for pap/HPV when she is ready. She can call anytime and arrange RTC in one year for annual. Will see what labs she is due for at the time and order accordingly. Nurse's notes reviewed from today. APPLE VENCES is a 51 year old FEMALE with the following Chief complaint: est care Family history: MOP/FOP depression neg colon cancer neg breast cancer SIS: mass in her uterus, unknown diagnosis Social: [employer] No work since d/t migraines lives alone TOB: 1/2 PPD since age 21 ETOH: pretty close to none Drug: MJ rx HPI/ROS:as above Active problems - Computerized Problem List is the source for the followin. Recurrent major depressive episodes, severe, with psychosis - suicide attempt/hospitalization [facility] 1991 2. Family history of disorder - Fa depression, HT - sister bipolar, hypothyroidism, type 2 DM - Mo - depression - Mat GF prostate cancer 3. 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 H/O: - - vaginal 5. Acne (SNOMED CT [id number]) 6. Closed fracture of fifth metatarsal bone [...] globus pharyngeus 27. Knee pain (SNOMED CT 0855881406) - bilateral, RX hyaluronic and LABORER POLE CREW injections 28. health maintenance - 05/28/13 normal [...] aureus infection 34. Suicidal ideation (SNOMED CT 3672908) Allergies: TETRACYCLINE (July 30, 2014) VENLAFAXINE (July 30, 2014) OXYCODONE (July 30, 2014) PREDNISONE (July 30, 2014) QUETIAPINE (July 30, 2014) TRAMADOL (July 30, 2014) TRAZODONE (July 30, 2014) EXAM: VS: Temp: 97.6 F [36.4 C] (09/27/2022 14:23) BP: 108/59 (09/27/2022 14:23) Pulse:70 (09/27/2022 14:23) Resp: 18 (09/27/2022 14:23) Pain: 0 (09/27/2022 14:23) Weight: WEIGHTS IN LAST 6 MONTHS - NONE FOUND General: NAD, Alert and oriented HEENT: PERRL EOMI Lungs: CTAB Heart: RRR Abd: Soft NABS Ext: calves soft and nontender, no edema Gait: stable and independant Medication Reconciliation: Education Evaluations *Was medication education provided for NEW medications or CHANGES to medications? (including medication name, dose, route, reason for use, and potential side effects). Yes. Education on what medications? Medication changes Education provided to the following: Patient Type of education provided: Verbal Written materials Assessment of patient understanding of education content. Verbalized understanding TERATOGENIC MED & CONTRACEPTION REVIEW (Optional)... MEDICATION RECONCILIATION Review Done: The medication list shown below was verified for accuracy and it includes all pending medications/active medications/all medications or discontinued within the last 90 days/all remote medications and non-VA medications. If a given category (i.e. remote meds) is not shown, that means that a patient doesn't have a medication(s) in that category. Allergies listed below were also reviewed/updated for accuracy. Allergies/ADR from [facility] may not display in CPRS. Use JLV MRT5 - Allergies/ADRs FACILITY ALLERGY/ADR -------- No Remote Allergy/ADR Data available for this patient [facility] OXYCODONE [facility] PREDNISONE [facility] QUETIAPINE [facility] TETRACYCLINE [facility] TRAMADOL [facility] TRAZODONE [facility] VENLAFAXINE Active and Recently Outpatient Medications (including Supplies): Issue Date Status Last Fill Active Outpatient Medications Refills Expiration 1) ALBUTEROL 90MCG (CFC-F) 200D ORAL INHL ACTIVE Issu:06-28-22 Qty: 2 for 50 days Sig: INHALE 1-2 Refills: 11 Last:06-29-22 PUFFS BY MOUTH EVERY 4 HOURS NEEDED Expr:06-29-23 FOR SHORTNESS OF BREATH SHAKE WELL (FOR IMMEDIATE RELIEF). FOR SHORTNESS OF BREATH 2) CLINDAMYCIN PHOSPHATE 1% TOP SOLN Qty: ACTIVE Issu:09-07-22 60 for 30 days Sig: APPLY TO AFFECTED Refills: 1 Last:09-07-22 AREA TOPICALLY TWICE A DAY NEEDED Expr:09-08-23 FOR FOLLICULITIS EXTERNAL USE ONLY 3) CLONIDINE HCL 0.1MG TAB Qty: 60 for 30 ACTIVE Issu:07-12-22 days Sig: TAKE ONE TABLET BY MOUTH Refills: 3 Last:07-13-22 TWICE A DAY Expr:07-13-23 4) DIVALPROEX 500MG 24HR (ER) SA TAB Qty: ACTIVE Issu:07-12-22 90 for 90 days Sig: TAKE ONE TABLET Refills: 2 Last:09-02-22 BY MOUTH AT BEDTIME Expr:07-13-23 5) DOXYCYCLINE HYCLATE 100MG TAB Qty: 14 ACTIVE Issu:09-06-22 for 7 days Sig: TAKE ONE TABLET BY Refills: 0 Last:09-06-22 MOUTH TWICE A DAY FOR CELLULITIS Expr:10-06-22 6) EPINEPHRINE (EQV-EPI-PEN) 0.3MG/0.3ML ACTIVE Issu:06-28-22 Qty: 2 for 10 days Sig: INJECT 1 PEN Refills: 3 Last:06-29-22 DIRECTED NEEDED FOR Expr:06-29-23 ANAPHYLACTIC REACTION 7) FEXOFENADINE HCL 180MG TAB Qty: 90 for ACTIVE Issu:06-28-22 90 days Sig: TAKE ONE TABLET BY MOUTH Refills: 3 Last:06-29-22 EVERY DAY FOR ALLERGIES Expr:06-29-23 8) FLUOXETINE HCL 20MG CAP Qty: 180 for 90 ACTIVE Issu:08-14-22 days Sig: TAKE TWO CAPSULES BY MOUTH Refills: 2 Last:08-14-22 EVERY DAY FOR DEPRESSION Expr:08-15-23 9) FLUTICASONE PROP 50MCG 120D NASAL INHL ACTIVE Issu:06-28-22 Qty: 3 for 90 days Sig: SPRAY 2 Refills: 3 Last:06-29-22 SPRAYS IN EACH NOSTRIL EVERY DAY FOR Expr:06-29-23 ALLERGIES 10) KETOCONAZOLE 2% SHAMPOO Qty: 120 for 30 ACTIVE Issu:06-22-22 days Sig: SHAMPOO SCALP TOPICALLY 3 Refills: 4 Last:09-06-22 TIMES WEEKLY SCALP INFECTION *LATHER Expr:06-23-23 FOR 5 MINUTES THEN RINSE* 11) MECLIZINE HCL 25MG CHEW TAB Qty: 30 for ACTIVE Issu:11-29-21 30 days Sig: CHEW ONE TABLET BY MOUTH Refills: 11 Last:11-29-21 TWICE A DAY NEEDED FOR MIGRAINE Expr:11-30-22 ASSOCIATED DIZZINESS -MAY BE CHEWED OR SWALLOWED 12) MELATONIN 3MG CAP/TAB Qty: 300 for 90 ACTIVE Issu:08-02-22 days Sig: TAKE 3 TAB (9 MG) 3MG BY Refills: 0 Last:08-03-22 MOUTH AT BEDTIME FOR SLEEP FOR SLEEP Expr:10-31-22 Issue Date Status Last Fill Pending Outpatient Medications Refills Expiration 1) LEVOTHYROXINE NA (SYNTHROID) 100MCG TAB PENDING Qty: 90 Sig: TAKE ONE TABLET BY MOUTH Refills: 0 EVERY DAY Issue Date Status Last Fill Inactive Outpatient Medications Refills Expiration 1) AMOXICILLIN 500MG CAP Qty: 30 for 5 Issu:08-14-22 days Sig: TAKE TWO CAPSULES BY MOUTH Refills: 0 Last:08-14-22 THREE TIMES A DAY FOR PNEUMONIA Expr:09-13-22 2) CAMPHOR 0.5/MENTHOL 0.5% LOTION Qty: Issu:06-30-21 450 for 30 days Sig: APPLY THIN LAYER Refills: 11 Last:06-30-21 TOPICALLY FOUR TIMES A DAY NEEDED Expr:07-01-22 3) CLINDAMYCIN PHOSPHATE 1% TOP SOLN Qty: DISCONTINUED Issu:06-28-22 60 for 30 days Sig: APPLY TO AFFECTED Refills: 0 Last:08-01-22 AREA TOPICALLY TWICE A DAY NEEDED Expr:06-29-23 FOR FOLLICULITIS EXTERNAL USE ONLY 4) CLONIDINE HCL 0.1MG TAB Qty: 60 for 30 DISCONTINUED Issu:06-16-21 days Sig: TAKE ONE TABLET BY MOUTH Refills: 0 Last:02-08-22 TWICE A DAY Expr:06-17-22 5) DIVALPROEX 500MG 24HR (ER) SA TAB Qty: DISCONTINUED Issu:06-14-22 90 for 90 days Sig: TAKE ONE TABLET Refills: 0 Last:06-14-22 BY MOUTH AT BEDTIME Expr:09-12-22 6) FLUOXETINE HCL 20MG CAP Qty: 180 for 90 DISCONTINUED Issu:07-12-22 days Sig: TAKE TWO CAPSULES BY MOUTH (EDIT) Last:09-01-22 EVERY DAY Refills: 2 Expr:07-13-23 7) FLUOXETINE HCL 20MG CAP Qty: 180 for 90 DISCONTINUED Issu:06-15-21 days Sig: TAKE TWO CAPSULES BY MOUTH Refills: 1 Last:06-13-22 EVERY DAY Expr:06-16-22 8) FLUTICAS 100/SALMETEROL 50 INHL DISK 60 Issu:06-28-22 Qty: 3 for 90 days Sig: INHALE 1 PUFF Refills: 0 Last:09-02-22 BY INHALATION TWICE A DAY FOR ASTHMA Expr:09-26-22 *RINSE MOUTH AFTER EACH USE* 9) FLUTICAS 100/SALMETEROL 50 INHL DISK 60 DISCONTINUED Issu:06-14-22 Qty: 3 for 90 days Sig: INHALE 1 PUFF Refills: 0 Last:06-14-22 BY INHALATION TWICE A DAY FOR ASTHMA Expr:09-12-22 *RINSE MOUTH AFTER EACH USE* 10) GABAPENTIN 300MG CAP Qty: 540 for 90 Issu:06-28-22 days Sig: TAKE THREE CAPSULES BY Refills: 0 Last:06-29-22 MOUTH TWICE A DAY FOR PAIN AND Expr:09-26-22 NUMBNESS 11) LEVOTHYROXINE NA (SYNTHROID) 112MCG TAB DISCONTINUED Issu:06-14-22 Qty: 90 for 90 days Sig: TAKE ONE Refills: 0 Last:06-14-22 TABLET BY MOUTH EVERY DAY FOR THYROID Expr:09-12-22 12) MECLIZINE HCL 25MG CHEW TAB Qty: 30 for DISCONTINUED Issu:11-22-21 30 days Sig: CHEW ONE TABLET BY MOUTH Refills: 11 Last:11-22-21 TWICE A DAY NEEDED FOR MIGRAINE Expr:11-23-22 ASSOCIATED DIZZINESS -MAY BE CHEWED OR SWALLOWED 13) MONTELUKAST NA 10MG TAB Qty: 90 for 90 Issu:06-28-22 days Sig: TAKE ONE TABLET BY MOUTH Refills: 0 Last:06-29-22 EVERY EVENING FOR ASTHMA Expr:09-26-22 14) MONTELUKAST NA 10MG TAB Qty: 90 for 90 DISCONTINUED Issu:06-14-22 days Sig: TAKE ONE TABLET BY MOUTH Refills: 0 Last:06-14-22 EVERY EVENING FOR ASTHMA Expr:09-12-22 15) MUPIROCIN 2% OINT Qty: 22 for 14 days Issu:05-31-21 Sig: APPLY LIBERAL AMOUNT TOPICALLY Refills: 3 Last:05-31-21 THREE TIMES A DAY Expr:06-01-22 16) SULFAMETHOXAZOLE 800/TRIMETH 160MG TAB Issu:08-12-22 Qty: 10 for 5 days Sig: TAKE 1 TABLET Refills: 0 Last:08-12-22 BY MOUTH TWICE A DAY FOR 5 DAYS FOR Expr:09-11-22 FOLLICULITIS, SINUSITIS 17) SULFAMETHOXAZOLE 800/TRIMETH 160MG TAB Issu:06-13-22 Qty: 20 for 10 days Sig: TAKE 1 Refills: 0 Last:06-13-22 TABLET BY MOUTH TWICE A DAY Expr:07-13-22 18) TIZANIDINE HCL 4MG TAB Qty: 60 for 40 Issu:09-24-21 days Sig: TAKE ONE-HALF TABLET BY Refills: 2 Last:06-13-22 MOUTH THREE TIMES A DAY NEEDED FOR Expr:09-25-22 MUSCLE SPASMS/TIGHTNESS Start Date Active Non-VA Medications Refills Expiration 1) Non-VA ACETAMINOPHEN 500MG TAB Sig: ACTIVE 1000MG MOUTH THREE TIMES A DAY 2) Non-VA ASPIRIN 400MG/CAFFEINE 30MG TAB ACTIVE Si TABLET MOUTH EVERY DAY NEEDED 3) Non-VA BENZOYL PEROXIDE 10% (WATER ACTIVE BASED) GEL Sig: THIN LAYER EVERY DAY 4) Non-VA IBUPROFEN 200MG TAB SiMG ACTIVE MOUTH FOUR TIMES A DAY NEEDED 5) Non-VA LORAZEPAM 1MG TAB SiMG MOUTH ACTIVE AT BEDTIME 6) Non-VA NON VA MED NOT LISTED ACTIVE MISCELLANEOUS Sig: VOLUNTARY DISCLOSURE MEDICINAL CANNABIS EVERY DAY NEEDED 7) Non-VA PRIMIDONE 50MG TAB SiMG ACTIVE MOUTH AT BEDTIME 38 Total Medications Time spent with patient, chart review, documentation, and coordination of care: 50 minutes /jose armando/ Jorgito Granados MD Physician Signed: 09/27/2022 15:06 01/02/2023 ADDENDUM STATUS: COMPLETED Pt called for med renewals (completed). TSH overdue for recheck and is ordered. ----> PACT MSA <---- please call pt and arrange testing /khoi Granados MD Physician Signed: 01/02/2023 08:21 Receipt Acknowledged By: * AWAITING SIGNATURE * TRE RAYA MELISSA L [facility] Sep 27, 2022 02:26 PM INTERNAL MEDICINE OUTPATIENT NOTE: LOCAL TITLE: MEDICINE CLINIC NURSING NOTE STANDARD TITLE: INTERNAL MEDICINE OUTPATIENT NOTE DATE OF NOTE: SEP 27, 2022@14:26 ENTRY DATE: SEP 27, 2022@14:26:15 AUTHOR: NIRANJAN TOTH EXP COSIGNER: URGENCY: STATUS: COMPLETED MEDICINE CLINIC NURSING NOTE Has ADDENDA TYPE OF VISIT: Appointment Check In Type of appointment: In-person appointment REASON FOR VISIT: Routine check up ALLERGIES: TETRACYCLINE (July 30, 2014) VENLAFAXINE (July 30, 2014) OXYCODONE (July 30, 2014) PREDNISONE (July 30, 2014) QUETIAPINE (July 30, 2014) TRAMADOL (July 30, 2014) TRAZODONE (July 30, 2014) VITAL SIGNS: Blood Pressure: 108/59 (09/27/2022 14:23) Pulse: 70 (09/27/2022 14:23) Respiration: 18 (09/27/2022 14:23) Temperature: 97.6 F [36.4 C] (09/27/2022 14:23) Weight: 151 lb [68.49 kg] (09/27/2022 14:23) Height: 61.5 in [156.2 cm] (09/27/2022 14:23) BMI: 28.1 O2 Sat: 97% (09/27/2022 14:23) Pain: 0 (09/27/2022 14:23) PAIN SCREEN: Patient is not having significant pain that they wish to discuss with their provider today. MEDICATION Over the Counter/Herbal Medications: The patient states that they take some outside medications and/or herbals. /jose armando/ NIRANJAN TOTH L.P.N, LPN Signed: 09/27/2022 14:27 09/27/2022 ADDENDUM STATUS: COMPLETED EDUCATION: PARTICIPANT(s): Home STD Testing Rectal and Throat Swab Teaching Strategy 1:1 Written/Printed Materials Objectives Type: rectal swab, throat swab Reviewed patient education handout(s) and process for collection of specimen(s). Demonstrated the proper application of patient label on the collection tube. Reviewed storage of collected samples. Patient Response (Outcome) Demonstrates skill(s) safely and effectively Verbalizes critical information about the topic Follow-Up Recommended None needed Done in clinic and sent to lab as ordered EDUCATION: PARTICIPANT(s): Urine Instructed in collection of urine. Printed instructions provided and participant(s) is able to repeat these instructions accurately. G/C sent to lab /jose armando/ BAKARI SUÁREZ LPN Signed: 09/27/2022 16:47 NIRANJAN TOTH [facility]
--- OUTSIDE RECORDS SUMMARY | 2023-07-06 21:11 | XMS_ITS | Encounter Summary ---
Author Name [employer] Organization [employer] [facility] [employer] Address [address] [place] [address] Support Name Relationship Address Phone RUDIAZ BEARD Next of Kin [address] KAYLA BOND [phone] RU DIAZ Emergency Contact [address] [address] KAYLA BOND [phone] Insurance Providers: All historical and current Section [...] to Policy [employer] [facility] [employer] ([facility]) MEDICARE ADVANTAGE MCR ([facility]) Jan 12, 2016 [id number] [phone] SONIA VENCES PATIENT [employer] [facility] ([facility]) MEDICARE ADVANTAGE MCR ([facility]) Mar 13, 2020 [id number] SONIA VENCES PATIENT [employer] [facility] ([facility]) MEDICARE ADVANTAGE MCR ([facility]) Mar 13, 2020 [id number] [phone] RU,SONIA NNIFER PATIENT [employer] [facility] ([facility]) MEDICARE ADVANTAGE MCR ([facility]) Mar 13, 2020 [id number] RU,SONIA NNIFER PATIENT [employer] [facility] ([facility]) MEDICARE ADVANTAGE MCR ([facility]) Mar 13, 2020 [id number] RU,SONIA NNIFER PATIENT [facility] ([facility]) MEDICARE ADVANTAGE MEDIC [facility] Mar 13, 2019 [id number] SONIA VENCES PATIENT Selected Encounter This section includes the information on record at [place] for the Encounter. Date/Time Encounter Type Encounter Description Reason Provider Source May 30, 2023 11:00 AM Outpatient Encounter DERMATOLOGY PAXTON BETHEA E Encounter Template Text not used by [facility] Social History: Smoking Status (Most current) and Tobacco Use (All prior to encounter date) This section includes the most current, and the historical, smoking and tobacco- related health factors from the [place] facility where the Encounter took place. Current Smoking Status This section includes the most current smoking, or tobacco-related health factor, from the [place] facility where the Encounter took place. Date/Time Current Smoking Status Comment Facil ity Jun 17, 2015 07:02 AM FORMER TOBACCO USE >1Y <7Y [facility] Tobacco Use History This section includes a history of the smoking, or tobacco-related health factors, that were collected on or before the date of the Encounter. The data comes from the [place] facility where the Encounter took place. Date/Time Smoking Status/Tobacco Use Comment F acility July 30, 2014 09:31 AM FORMER TOBACCO USE <1Y [facility] Encounter Notes: All associated encounter notes This section contains the clinical notes associated to the Encounter. Date/Time Encounter Note(s) Provider Source May 30, 2023 12:28 PM REPORT OF CONTACT: LOCAL TITLE: APPOINTMENT SCHEDULING NOTE STANDARD TITLE: REPORT OF CONTACT DATE OF NOTE: MAY 30, 2023@12:28 ENTRY DATE: MAY 30, 2023@12:28:59 AUTHOR: FIONA SMITH EXP COSIGNER: URGENCY: STATUS: COMPLETED Attempted to schedule No show Contact: automated no-show letter queued to be sent Contact: Called Johnson at: If Johnson calls back, schedule appointment for: Return to [facility] on or around ( May 30, 2023 ) for a total of 1 appointment(s) /es/ FIONA SMITH ADVANCED MSA Signed: 05/30/2023 12:29 FIONA SMITH [facility]
--- OUTSIDE RECORDS SUMMARY | 2023-07-06 21:11 | XMS_ITS | Encounter Summary ---
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 KAYLA BOND [phone] Insurance Providers: All historical and current Section [...] to Policy [employer] [facility] [facility] ([facility]) MEDICARE ADVANTAGE MCR ([facility]) Jan 12, 2016 [id number] [phone] SONIA VENCES PATIENT [employer] [facility] ([facility] MEDICARE ADVANTAGE MCR ([facility]) Mar 13, 2020 [id number] SONIA VENCESIE PATIENT [employer] [facility] ([facility] MEDICARE ADVANTAGE MCR ([facility]) Mar 13, 2020 [id number] [phone] RU,SONIA NNIFER PATIENT [employer] [facility] ([facility] MEDICARE ADVANTAGE MCR ([facility]) Mar 13, 2020 [id number] RU,SONIA NNIFER PATIENT [employer] [facility] ([facility] MEDICARE ADVANTAGE MCR ([facility]) Mar 13, 2020 [id number] [phone] RU,SONIA NNIFER PATIENT [facility] ([place] [facility]) MEDICARE ADVANTAGE MEDIC [facility] ELL[facility] BRADLEY Mar 13, 2019 [id number] SONIA VENCES PATIENT Selected Encounter This section includes the information on record at [place] for the Encounter. Date/Time Encounter Type Encounter Description Reason Provider Source Apr 10, 2023 03:31 PM Outpatient Encounter TELEPHONE TRIAGE BRADLY BAINS Encounter Template Text not used by [place] Plan of Treatment: Future Appointments (+ 6 months) and Future Tests (+/- 45 days) The Plan of Treatment section includes future care activities for the patient from all [place] treatmentfacilities. This section includes future appointments and future orders which are active, pending or scheduled. Future Appointments This section includes appointments that were scheduled to occur 6 months from the date of the Encounter, up to a maximum of 20 appointments. The data comes from all [place] treatment facilities. Appointment Date/Time Appointment Type Appointme nt Facility Name May 30, 2023 11:00 AM AMBULATORY - SURGERY [facility] Social History: Smoking Status (Most current) and Tobacco Use (All prior to encounter date) This section includes the most current, and the historical, smoking and tobacco- related health factors from the [place] facility where the Encounter took place. Current Smoking Status This section includes the most current smoking, or tobacco-related health factor, from the [place] facility where the Encounter took place. Date/Time Current Smoking Status Comment Facil ity Jun 17, 2015 07:02 AM FORMER TOBACCO USE >1Y <7Y [facility] Tobacco Use History This section includes a history of the smoking, or tobacco-related health factors, that were collected on or before the date of the Encounter. The data comes from the [place] facility where the Encounter took place. Date/Time Smoking Status/Tobacco Use Comment F acility July 30, 2014 09:31 AM FORMER TOBACCO USE <1Y [facility] Encounter Notes: All associated encounter notes This section contains the clinical notes associated to the Encounter. Date/Time Encounter Note(s) Provider Source Apr 10, 2023 03:31 PM RN PROGRESS NOTE: LOCAL TITLE: CCC: CLINICAL TRIAGE STANDARD TITLE: RN PROGRESS NOTE DATE OF NOTE: APR 10, 2023@15:31:22 ENTRY DATE: APR 10, 2023@15:31:22 AUTHOR: BRALDY BAINS EXP COSIGNER: URGENCY: STATUS: COMPLETED Patient Demographics Patient Name: APPLE VENCES Patient Primary Address: [address] [place] [id number] Patient Primary Phone: [phone] Patient : 1970 Patient Age: 52 Call Back Number: [phone] Caller/Recipient Relation to Patient: Self Emergency Contact: DIAZ VENCES Triage Summary Conducted triage/discussed symptoms Pain Score: 6 (Moderate to Severe Pain) Utilized the Triage Tool: Yes Chief Complaint: Skin Lesion System WHEN: Within 8 Hours Nurse's Recommendation / WHEN: Within 8 Hours System WHERE: Urgent care center Nurse's Recommendation / WHERE: Urgent [place] Patient Disposition Patient/Caregiver agrees to plan of care: Yes Patient WHERE[facility] Patient WHEN: Within 8 hours Nursing Plan and Disposition Referred patient to higher level of care Instructed to go to Emergency Room (ER) Nurse Summary Nurse Summary: PATIENT CONCERN/DURATION/ONSET: c/o several scalp lesions that she says are painful 5-6/10, and are draining a foul purulent drainage. S WHAT HAS PATIENT TRIED TO TREAT THE SYMPTOMS: Nothing HISTORY/PREVIOUS TREATMENT: States she has a history of MRSA WHAT IS PATIENT GOAL FOR THE CALL: appointment with Dermatology Was Care Now considered ? (TELE or VVC) : no PRODUCT TECHNICIAN DISPOSITION: Recommended triage is [facility] [place] ED secondary to purulent discharge. Caller agrees. Best contact for is [phone] (Verified). This note was created by a [address] parachute panel joiner. Please do not alert this nurse by adding as a signer for future communications. Alerts are not monitored by this user, please reach out to [facility] Leadership instead if indicated. Clinical Contact Center Codes Clinic/Location: V23 [facility] PHONE CCC RN TXCC Triage Complete Triage Note: Phone Triage 10 Apr 2023 21:25:56 +0000 [facility] Demographics 52 y/o Female Results CC: Skin Lesion Software suggested: Within 8 Hours Software suggested follow-up location: Urgent care center, consider virtual care Values and Measures Duration of CC: 2 Weeks Positive Responses HPI: skin erythema, around skin lump or bump HPI: skin lump, painful, moderate to severe HPI: skin lump, painful, swollen VS: temperature not taken Negative Responses Denies: HPI: red streaks, from the skin lump or bump Denies: HPI: vomiting [place] Education Verbal Education Provided for: Skin Lesion Home Care /es/ Bradly Bains BSN, RN VISN 23 [facility] Signed: 04/10/2023 15:31 BRADLY BAINS [facility]
--- OUTSIDE RECORDS SUMMARY | 2023-07-06 21:11 | XMS_ITS | Encounter Summary ---
Author Name [facility] Organization [facility] Address [address] [place] [address] Support Name Relationship Address Phone RUDIAZ BEARD Next of Kin [address] VAR[address] Ortega. [place] BOND [phone] RU DIAZ Emergency Contact [address] VARUN POLANCO. KAYLA BOND [phone] Insurance Providers: All historical and current Section [...] Patient's Relationship to Policy [facility] ([facility]) MEDICARE ADVANTAGE MCR ([facility]) Jan 12, 2016 [id number] [phone] SONIA VENCES PATIENT [employer] [facility] ([facility]) MEDICARE ADVANTAGE MCR ([facility]) Mar 13, 2020 [id number] SONIA VENCES PATIENT [employer] [facility] ([facility]) MEDICARE ADVANTAGE MCR ([facility]) Mar 13, 2020 [id number] RU,SONIA NNIFER PATIENT [employer] [facility] ([facility]) MEDICARE ADVANTAGE MCR ([facility]) Mar 13, 2020 [id number] RU,SONIA NNIFER PATIENT [employer] [facility] ([facility]) MEDICARE ADVANTAGE MCR ([facility]) Mar 13, 2020 [id number] RU,SONIA NNIFER PATIENT [facility] ([facility]) MEDICARE ADVANTAGE MEDIC MARY ELLEN BRADLEY Mar 13, 2019 [id number] SONIA VENCES PATIENT Selected Encounter This section includes the information on record at MI for the Encounter. Date/Time Encounter Type Encounter Description Reason Pro vider Source Apr 10, 2023 01:58 PM Outpatient Encounter DERMATOLOGY IHE Encounter Template Text not used by MI Plan of Treatment: Future Appointments (+ 6 months) and Future Tests (+/- 45 days) The Plan of Treatment section includes future care activities for the patient from all MI treatmentfacilities. This section includes future appointments and future orders which are active, pending or scheduled. Future Appointments This section includes appointments that were scheduled to occur 6 months from the date of the Encounter, up to a maximum of 20 appointments. The data comes from all MI treatment facilities. Appointment Date/Time Appointment Type Appointme nt Facility Name May 30, 2023 11:00 AM AMBULATORY - SURGERY [facility] Social History: Smoking Status (Most current) and Tobacco Use (All prior to encounter date) This section includes the most current, and the historical, smoking and tobacco- related health factors from the MI facility where the Encounter took place. Current Smoking Status This section includes the most current smoking, or tobacco-related health factor, from the MI facility where the Encounter took place. Date/Time Current Smoking Status Comment Facil ity Jun 17, 2015 07:02 AM FORMER TOBACCO USE >1Y <7Y [facility] Tobacco Use History This section includes a history of the smoking, or tobacco-related health factors, that were collected on or before the date of the Encounter. The data comes from the MI facility where the Encounter took place. Date/Time Smoking Status/Tobacco Use Comment F acility July 30, 2014 09:31 AM FORMER TOBACCO USE <1Y [facility] Encounter Notes: All associated encounter notes This section contains the clinical notes associated to the Encounter. Date/Time Encounter Note(s) Provider Source Apr 10, 2023 01:58 PM REPORT OF CONTACT: LOCAL TITLE: APPOINTMENT SCHEDULING NOTE STANDARD TITLE: REPORT OF CONTACT DATE OF NOTE: APR 10, 2023@13:58 ENTRY DATE: APR 10, 2023@13:58:42 AUTHOR: JUSTIN KEYS EXP COSIGNER: URGENCY: STATUS: COMPLETED Attempted to schedule Return to clinic (RTC) Contact attempt made to [place] 1st attempt Telephone 2nd attempt Letter - Sent letter by regular [place] mail to address on file: [place] [address] [facility] [address] [place], [place] [address] Left message on voice mail to call back to this number [phone] If calls back, schedule appt for: Return to [facility] on or around ( May 30, 2023 )for a total of 1 appointment(s) any color panel /es/ MARY MORROW MSA LEAD INSPECTOR MECHANICAL Signed: 04/10/2023 13:59 JUSTIN KEYS [facility]
--- OUTSIDE RECORDS SUMMARY | 2023-07-06 21:12 | XMS_ITS | Encounter Summary ---
Author Name Unknown Organization [facility] Address [address] [place] [address] Care Team Providers Care Director Sports Name Role Phone Thao Zhu D.O. Primary Care Provider [phone] Reason for Visit * Reason Comments Med Refill Encounter Details Date Type Department Care Team (Late st Contact Info) Description 05/12/2023 Refill Urgent Care in [place], [place] [address] [place] [phone] Thao Zhu D.O. [address] [place] [phone] Med Refill Social History Tobacco Use Types Packs/Day Years Used Date Smoking Tobacco: Some Days Cigarettes 0.5 14.3 Started: 03/2009 Smokeless Tobacco: Never Comments:trying to quit Alcohol Use Standard Drinks/Week Comments Not Currently 0 (1 standard drink = 0.6 oz pur e alcohol) Humiliation, Afraid, Rape, and Kick questionnair e Answer Date Recorded Within the last year, have y ou been afraid of your partner or ex-partner? No 04/08/2021 Within the last year, have y ou been humiliated or emotionally abused in other ways by your partner or ex-partner? No Within the last year, have y ou been kicked, hit, slapped, or otherwise physically hurt by your partner or ex-partner? No 04/08/2021 Within the last year, have y ou been raped or forced to have any kind of sexual activity by your partner or ex-partner? No 04/08/2021 Social Connection and Isolat ion Panel [NHANES] Answer Date Recorded In a typical week, how many times do you talk on the phone with family, friends, or neighbors? More than three times a week 04/08/2021 How often do you get togethe r with friends or relatives? Patient declined 04/08/2021 How often do you attend chur or christian services? Patient declined 04/08/2021 Do you belong to any clubs o r organizations such as restoration groups, unions, fraternal or athletic groups, or school groups? No 04/08/2021 How often do you attend meet ings of the clubs or organizations you belong to? Patient declined 04/08/2021 Are you , , di vorced, , never , or living with a partner? Patient declined 04/08/2021 AUDIT-C Answer Date Recorded Q1: How often do you have a drink containing alc ohol? 2-4 times a month 04/08/2021 Q2: How many drinks containi ng alcohol do you have on a typical day when you are drinking? 1 or 2 04/08/2021 Q3: How often do you have si x or more drinks on one occasion? Patient declined 04/08/2021 Overall Financial Resource Strain (CARDIA) Answe r Date Recorded How hard is it for you to pa y for the very basics like food, housing, medical care, and heating? Hard 04/08/2021 [facility] [place] [facility] - Occupational Stress Questionnaire Answer Date Recorded Do you feel stress - tense, restless, nervous, or anxious, or unable to sleep at night because your mind is troubled all the time - these days? Patient declined 04/08/2021 Exercise Vital Sign Answer Date Recorde d On average, how many days pe r week do you engage in moderate to strenuous exercise (like a brisk walk)? 0 days On average, how many minutes do you engage in exercise at this level? Patient declined 04/08/2021 Hunger Vital Sign Answer Date Recorded Within the past 12 months, y ou worried that your food would run out before you got the money to buy more. Patient declined Within the past 12 months, t he food you bought just didn't last and you didn't have money to get more. Often true PRAPARE - Transportation Answer Date Re corded In the past 12 months, has l ack of transportation kept you from medical appointments or from getting medications? No 03/14 In the past 12 months, has l ack of transportation kept you from meetings, work, or from getting things needed for daily living? No 04/08/2021 Housing Stability Vital Sign Answer Sen e Recorded In the last 12 months, was t here a time when you were not able to pay the mortgage or rent on time? No 04/08/2021 In the last 12 months, how many places have you lived? 1 04/08/2021 In the last 12 months, was t here a time when you did not have a steady place to sleep or slept in a custodial (including now)? No 04/08/2021 Nutrition Answer Date Recorded Nutrition: EVOO Fat Source No 04/08 On average, how many serving s of fruits and vegetables do you eat per day (serving size is equal to 1 cup or approximately the size of a tennis ball)? 0-1 04/08/2021 Dental Answer Date Recorded Dental: Regular Dentist No 05/08/19 21 Employment Answer Date Recorded Employment status Permanently disabled Education Answer Date Recorded What is the highest level of school you have completed or the highest degree you have received? Associate degree: academic program 04/08/2021 Sex and Gender Information Value Date Recorded Sex Assigned at Female 12/22/2020 1:17 PM CDT Gender Identity Female 08/06/2019 3:43 PM CDT Sexual Orientation Straight 08/06/2019 3: 43 PM CDT documented as of this encounter Plan of Treatment Upcoming Encounters Date Type Department Care Team (Late st Contact Info) Description 08/04/2023 2:00 PM CDT Office Visit Department of Family Medicine, [facility], in [place], [place] [address] [phone] Terri Dominguez APRN, C.N.P. [address] [place] [phone] documented as of this encounter Visit Diagnoses Not on filedocumented in this encounter Care Teams Director Sports Relationship Specialty Start Date End Date Thao Zhu D.O. [address] [phone] PCP - General Family Medicine 04/23/19 documented as of this encounter
--- OUTSIDE RECORDS SUMMARY | 2023-07-06 21:12 | XMS_ITS | Clinical Summary ---
Author Name Unknown Organization [facility] Address [address] [place] [address] Care Team Providers Care Power Plant Engineer Name Role Phone Thao Zhu D.O. Primary Care Provider [phone] Source Comments Patient records contain information from all sites at [facility]. For routine questions regarding patient records, call [phone] during business hours, M-F 8:00 AM - 5:00 PM Central Time. Record requests for emergency care only can be directed to [phone] at any time.[facility] Allergies Active Allergy Reactions Criticality Noted Date Comments Hydrocodone Rash Medium 01/08/2019 Hydromorphone Itching 02/17/2017 Oxycodone-Acetaminophen GI intolerance 04/03/19 08 emesis Pollen Extracts Itching 01/03/2019 Nasal congestion (cottonwood trees, mold, some grasses, pine tree, cat dander, etc )_ Quetiapine Fumarate Other (see comments) 2013 Severe nightmares Sulfamethoxazole-Trimet hoprim Rash 04/19/2017 Tetracycline Rash 09/04/2007 Tramadol Hives (Reselect Reaction) 08/21/2007 Trazodone Other (see comments) 12/21/2010 Memory loss Venlafaxine Analogues Other (see comments) 12/11 xs sweating Wheat Flour Other (see comments) 10/20/2011 Positive celiac result after EGD Medications Medication Sig Dispensed Refills Start Date End Date Status gabapentin (NEURONTIN) 300 mg capsule 3 capsules 2 (two) times a day. 05/29/2012 Active lysine 500 mg tablet Take 2 tablets by mouth as needed for other. Skin sores 05/29/2012 Active cloNIDine (CATAPRES) 0.1 mg tablet Take 0.1 mg by mouth. 07/22/2019 Active divalproex (DEPAKOTE) 500 mg EC tablet Take 500 mg by mouth. 04/10/2019 Active EPINEPHrine 0.3 mg/0.3 mL injection syringe Inject 0.3 mg intramuscularly. 05/28/2013 Active fexofenadine (ESTUARDO) 180 mg tablet Take 180 mg by mouth. 11/21/2018 Active FLUoxetine (PROzac) 40 mg capsule Take 80 mg by mouth. 07/22/2019 Active fluticasone propionate (FLONASE) 50 mcg/actuation nasal spray SHAKE WELL AND INHALE 2 SPRAYS INTO BOTH NOSTRILS QD 07/04/2019 Active ipratropium-albuter oL (DUO-NEB) 0.5-2.5 mg/3 mL nebulizer solution Inhale 3 mL. 06/24/2019 Acti ve levothyroxine (SYNTHROID, LEVOTHROID) 125 mcg tablet Take 125 mcg by mouth. 03/27/2019 Active melatonin 3 mg tablet Take 6 mg by mouth. 09/07/2017 Activ e montelukast (SINGULAIR) 10 mg tablet Take 10 mg by mouth. 10/22/2018 Active nebulizer accessories kit For home use. Length of need: 99 months 01/09/2018 Active nebulizer and compressor (Vios Aerosol Delivery System) device FOR HOME USE. LENGTH OF NEED: 99 MONTHS 01/09/2018 Active omeprazole (PriLOSEC) [address] capsule Take 20 mg by mouth. 03/21/2019 Active albuterol inhaler Inhale 2 puffs every 6 (six) hours as needed for wheezing. 1 Inhaler 11 09/05/2019 Active budesonide (PULMICORT) 0.5 mg/2 mL nebulizer solutionIndications :Sinusitis Recurrent MIX 1 AMPULE IN SINUS IRRIGATION BOTTLE AND IRRIGATE TWICE DAILY. 360 mL 1 09/18/2019 Active mometasone (NASONEX) 50 mcg/actuation nasal spray Administer 2 sprays into nostril(s). 12/31/2019 Active tiZANidine (ZANAFLEX) 2 mg tablet Take 2 mg by mouth every 8 (eight) hours as needed. 05/28/2020 Active ZOLMitriptan (ZOMIG) 5 mg tablet 04/16/2020 Activ e ondansetron (ZOFRAN) 4 mg tablet 08/02/2020 Active meclizine (ANTIVERT) 25 mg chewable tablet 08/02/2020 Active fluocinonide (LIDEX) 0.05 % ointmentIndications :Acne Vulgaris Apply 1 application topically 2 (two) times a day as needed for rash. Apply to irritated/itchy/durga nful skin lesions on scalp as needed. 30 g 1 01/13/2021 Active methylPREDNISolone (MEDROL DOSEPAK) 4 mg tablet Follow package directions. 21 tablet 03/25/2021 Active methylPREDNISolone (MEDROL DOSEPAK) 4 mg tablet Follow package directions. 21 tablet 04/03/2021 Active meclizine (ANTIVERT) 25 mg tablet Take 1 tablet (25 mg total) by mouth 3 (three) times a day as needed for dizziness for up to 8 doses. 8 tablet 04/13/2021 Active sulfamethoxazole-tr imethoprim (BACTRIM DS) 800-160 mg per tablet TAKE 1 TABLET BY MOUTH EVERY 12 HOURS 20 tablet 04/22/2021 Active polyethylene glycol-electrolytes (GoLYTELY) 236-22.74-6.74 -5.86 gram solution Drink 1st portion of prep at 6 PM the evening before. 2nd portion must be started 3 hours before and finished 2 hours prior to report time 4000 mL 05/25/2021 Active gentamicin (GARAMYCIN) 0.1 % ointment Apply 1 application topically 3 (three) times a day. 30 g 3 05/28/2021 Active doxycycline hyclate (VIBRAMYCIN) 100 mg capsule Take 100 mg by mouth 2 (two) times a day. 04/08/2022 Active Wixela Inhub 100-50 mcg/act diskus inhaler INHALE 1 PUFF BY MOUTH TWICE DAILY. RINSE MOUTH WITH WATER AFTER USE FOR AFTERTASTE AND INCIDENCE OF CANDIDIASIS. DO NOT SWALLOW 180 each 3 05/12/2023 Active clobetasoL (CORMAX) 0.05 % external solution Apply 1 Application topically 2 (two) times a day. Apply to affected areas on the scalp. 50 mL 3 06/22/2023 Active Hospital, Clinic, or Other Facility Administered Medication Ordered Dose Route Frequency Start Date End Date Status triamcinolone acetonide injection 20 mg (KENALOG-40)Indications:Pru marcos Nodularis 20 mg lesn Once 06/22/2023 06/22/2023 Ended Active Problems Problem Noted Date Diagnosed Date History Of Falling 06/22/2023 Melena 05/25/2021 Overview: Added automatically from request for surgery [id number] Body Mass Index 35.0 To 35.9 Adult 08/26/2020 Pain Sacroiliac 08/26/2020 Myalgia 08/26/2020 Pain Low Back Unspecified 08/26/2020 Adjustment Disorder With Depressed Mood 09/11/19 20 Degeneration Disc Cervical 10/10/2018 Overview: MRI 2012 mild disc buldge at C5-6 MRI 2012 mild disc buldge at C5-6 Other Chronic Sinusitis 09/26/2018 Posttraumatic Stress Disorder Brief 01/18/2018 Other Nursing Home Current Drug Therapy 07/28/2016 Overview: Signed: 06/13/14 Dr. Montana Lomeli / psychiatry Signed: 06/13/14 Dr. [place] Lomeli / psychiatry Anxiety 10/13/2015 Rhinitis Allergic Due To Outdoor Pollen 10/13/19 16 Diaphragmatic Hernia Without Obstruction Or Gang raul 04/01/2015 Tobacco Use 01/21/2014 Hyperlipidemia Mixed 07/03/2012 Degeneration Disc Lumbosacral 05/04/2012 Overview: ~ May 2012: L5-S1 interlaminar BRITTANY by Dr. Pérez. ~ August 2013:L4-L5 left interlaminar epidural steroid injection by Dr. Pérez, 6 months benefit. ~ February 2014:L4-L5 epidural steroid injection by Dr. Pérez: 50% improvement for 1 month. May 2014: MEDX Ordered. ~ May 2014:L4-L5 Interlam epidural steroid injection by Dr. Pérez. ~ September 2015:L5-S1 Left interlaminar epidural steroid injection by Dr. Pérez. ~ May 2017: L5-S1 [place] epidural steroid injection by Dr. Pérez. July 2017: Repeat MRI Lumbar Spine. ~ May 2012: L5-S1 interlaminar BRITTANY by Dr. Pérez. ~ August 2013:L4-L5 left interlaminar epidural steroid injection by Dr. Pérez, 6 months benefit. ~ February 2014:L4-L5 epidural steroid injection by Dr. Pérez: 50% improvement for 1 month. May 2014: MEDX Ordered. ~ May 2014:L4-L5 Interlam epidural steroid injection by Dr. Pérez. ~ September 2015:L5-S1 Left interlaminar epidural steroid injection by Dr. Pérez. ~ May 2017: L5-S1 [place] epidural steroid injection by Dr. Pérez. July 2017: Repeat MRI Lumbar Spine. Spondylosis Lumbar Without Myelopathy 05/04/2012 Chondromalacia Patella Right 04/17/2012 Tachycardia 04/17/2012 Steatohepatitis Non Alcoholic 04/06/2012 Abnormal Liver Function Test 03/29/2012 Administrative Purpose Exam 01/28/2012 Overview: Controlled substance contract signed 08/17/11, see scanned document JOYCE SCHERER RN 01/28/2012 4:40 AM Controlled substance contract signed 08/17/11, see scanned document JOYCE SCHERER RN 01/28/2012 4:40 AM Celiac Disease 10/19/2011 Overview: EGD 10/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 EGD 09/2017 Walker 2 celiac disease EGD 10/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 EGD 09/2017 Walker 2 celiac disease Deficiency Vitamin D 08/04/2010 Anemia Iron Deficiency 04/20/2010 Cramp And Spasm 04/20/2010 Acne Vulgaris 08/20/2009 Migraine Headache 05/15/2009 Urticaria 02/01/2008 Overview: Angioedema from raspberries Angioedema from raspberries Hypothyroidism 09/25/2007 Asthma Moderate Persistent 07/23/2007 Overview: Mild intermittent Mild intermittent Morbid Severe Obesity Due To Excess Calories Reflux Esophagitis 12/26/2006 Encounters Date Type Department Care Team Description 06/22/2023 1:00 PM CDT Comprehensive Visit Department of Family Medicine, [facility], in [place], [place] [address] [place] [address] Terri Dominguez APRN, C.N.P. Prurigo Nodularis (Primary Dx); History Of Falling; Morbid Severe Obesity Due To Excess Calories (HCC); Asthma Moderate Persistent (HCC) 05/16/2023 Orders Only [facility] PCP [facility] M[facility] Thao Zhu D.O. Hyperlipidemia Mixed 05/12/2023 Refill Urgent Care in [place], [place] [address] [place] [phone] Thao Zhu D.O. Med Refill from Last 3 Months Immunizations Name Administration Dates Next Due SARS-COV-2 (COVID-19) - PFIZ ER (Discontinued)(12 years or older) 06/30/2020,06/04/2020 Social History Tobacco Use Types Packs/Day Years Used Date Smoking Tobacco: Some Days Cigarettes 0.5 14.3 Started: 03/2009 Smokeless Tobacco: Never Tobacco Cessation:Ready to Q uit: No; Counseling Given: Yes Comments:trying to quit Alcohol Use Standard Drinks/Week [...] 04/08/2021 How often do you attend chur ch or christianity services? Patient declined 04/08/2021 Do you belong to any clubs o r organizations such as presybeterian groups, unions, fraternal or athletic groups, or [...] housing, medical care, and heating? Hard 04/08/2021 [facility] Occupat ional Health - Occupational Stress [...] place to sleep or slept in a assisted (including now)? No 04/08/2021 Nutrition Answer Date [...] Orientation Straight 08/06/2019 3: 43 PM CDT Last Filed Vital Signs Vital Sign Reading Time Taken Comments Blood Pressure 120/77 06/16/2021 8:55 PM CDT Pulse 94 06/16/2021 8:55 PM CDT Temperature 35.9 ??C (96.6 ??F) 06/29/2021 8:25 AM CD T Respiratory Rate 20 05/05/2021 2:12 PM AIRPORT SECURITY SCREENER Oxygen Saturation 98% 06/16/2021 8:55 PM CDT Inhaled Oxygen Concentration - - Weight 72 kg (158 lb 13.5 oz) 06/29/2021 8:25 AM CDT Height 157.5 cm (5' 2) 11/05/2019 1:39 PM CDT Body Mass Index 29.05 11/05/2019 1:39 PM CDT Plan of Treatment Upcoming Encounters Date Type Department Care Team (Late st Contact Info) Description 08/04/2023 2:00 PM CDT Office Visit Department of Family Medicine, [facility], in [place], [place] [address] [place] [phone] Terri Dominguez APRN, C.N.P. [address] [place] [address] Health Maintenance Due Date Last Done Comments CT Colonography 1972 Cologuard 1972 FIT 1972 HIV Screening 1972 Hepatitis C Screening 1972 Mammogram 1972 Visit: Medicare Annual Wellness 1972 Pneumococcal vaccine (0-64 y ears) (1 of 2 - PCV) 1978 Hepatitis A Vaccines (1 of 2 - Risk 2-dose series) 09/29/1991 Hepatitis B Vaccines (1 of 3 - 19+ 3-dose series) 09/29/1991 Asthma Action Plan 08/14/2019 Asthma Control Test Questionnaire 08/14/2019 Cervical Cancer Screening 11/29/2020 11/29/2017 Tobacco Cessation counseling 06/16/2022 06/16/2021, 10/08/2020 DTaP,Tdap,and Td Vaccines (1 - Tdap) 06/29/2022 06/28/2022 Zoster Vaccines (1 of 2) 2022 COVID-19 Vaccine (5 - 2022-2 4 season) 2022 04/29/2022, 05/26/2021, 06/30/2020, Additional history exists Influenza Vaccine (#1) 2022 , 03/08/2021, 01/27/2020, Additional history exists Lipid (Cholesterol) Screening 02/28/2023 02/28/2022 Thyroid Stimulating Hormone (TSH) test for thyroid function 02/28/2023 02/28/2022, 04/13/2021, 10/08/2018, Additional history exists Depression Screening (Annual PHQ-2) 03/13/2023 Fasting Glucose for Diabetes Screening 09/19/2025 09/19/2022, 02/28/2022, 05/05/2021, Additional history exists Colonoscopy 09/22/2032 09/22/2022 Colorectal Cancer Screening 09/22/2032 Procedures Procedure Name Priority Date/Time Associated Diagnosis Comments EXTI COMPREHENSIVE METABOLIC PANEL, S/P Routine 09/19/2022 2:40 PM CDT EXTI LIPID PANEL W REFLEX MEASURED LDL Routine 02/28/2022 9:23 AM AIRPORT SECURITY SCREENER EXTI THYROID-STIMULATING HORMONE-SENSITIVE (S-TSH), S Routine 02/28/2022 9:23 AM AIRPORT SECURITY SCREENER from Last 3 Months or Most Recently Relevant to Health Maintenance Care Teams Power Plant Engineer Relationship Specialty Start Date End Date Thao Zhu D.O. [address] [place] [phone] PCP - General Family Medicine 04/23/19
--- OUTSIDE RECORDS SUMMARY | 2023-07-06 21:12 | XMS_ITS | Encounter Summary ---
Author Name Unknown Organization [facility] Address [address] [place] [address] Care Team Providers Care Corporate Librarian Name Role Phone Thao Zhu D.O. Primary Care Provider [phone] Reason for Referral * Outpatient (Routine) - Authorized Specialty Diagnoses / Procedures Referred By Marbella branham Referred To Contact Dermatology Terri Dominguez APRN, C.N.P. [address] [place] [address] [facility] Referral ID Status Reason Start Date Expiration Date V isits Requested Visits Authorized [id number] Authorized 06/22/2023 12/21/2024 1 1 Scheduling Instructions Recheck scalp Reason for Visit * Reason Comments Hair/Scalp Problem * Appointment Request (Routine) - Closed Specialty Diagnoses / Procedures Referred By Marbella branham Referred To Contact Dermatology Referral ID Status Reason Start Date Expiration Date Visits Re quested Visits Authorized [id number] Closed 03/31/2023 03/30/2024 1 1 Encounter Details Date Type Department Care Team (Latest Contact Info) Description 06/22/2023 1:00 PM CDT Comprehensive Visit Department of Family Medicine, [facility], in [place], [place] [address] [place] [phone] Terri Dominguez APRN, C.N.P. [address] [phone] Prurigo Nodularis (Primary Dx); History Of Falling; Morbid Severe Obesity Due To Excess Calories (HCC); Asthma Moderate Persistent (HCC) Social History Tobacco Use Types Packs/Day Years [...] How often do you attend chur or anglican services? Patient declined 04/08/2021 Do you belong to any clubs o r organizations such as mormon groups, unions, fraternal or athletic groups, or [...] housing, medical care, and heating? Hard 04/08/2021 [facility] - Occupational Stress [...] place to sleep or slept in a mcc (including now)? No 04/08/2021 Nutrition Answer Date [...] Answer Date Recorded Employment status Permanently disabled 2 Education Answer Date Recorded What is the highest level of school you have completed or the highest degree you have received? Associate degree: academic program 04/08/2021 Sex and Gender Information Value Date Recorded Sex Assigned at Female 12/22/2020 1:17 PM CDT Gender Identity Female 08/06/2019 3:43 PM CDT Sexual Orientation Straight 08/06/2019 3: 43 PM CDT documented as of this encounter Progress Notes * Terri Dominguez APRN, C.N.P. - 06/22/2023 1:00 PM CDT SUBJECTIVE CHIEF COMPLAINT / REASON FOR VISIT Hair/Scalp Problem. HISTORY OF PRESENT ILLNESS Korina Soto is a 52 y.o. female who presents for evaluation of chronic scalp infections. She has a history of painful infected lesions on her scalp that have been ongoing for several years. She feels that the oral and topical antibiotic combination seems to be the most helpful. The areas are extensively pruritic and she does scratch them excessively at times. She feels that there is always a thick scab and sore that breaks open. She is concerned about having infections as she has a history of MRSA. She is tried topical clindamycin, oral clindamycin, mupirocin ointment, and ketoconazole shampoo. Per nursing notes: Chief Complaint (Reason for visit): issues with scalp How long has lesion(s) been present, any symptoms (pain, bleeding, or itching)? : itchy Was patient referred, self referred, or a returning derm patient? : new patient Personal or family history of skin cancer or other skin condition? : grandpa with skin cancer grandma with skin issues Any other skin concerns today? : no REVIEW OF SYSTEMS Constitutional, integumentary, and allergic/immunologic review of systems is negative except as otherwise remarked above or below. OBJECTIVE PHYSICAL EXAM General: Well-appearing female in no acute distress. Well groomed and dressed and answers appropriately to questions. Skin: I have examined the scalp, there are multiple scattered lichenified and slightly eroded erythematous papules and plaques along the parietal, frontal, and posterior scalp. ASSESSMENT / PLAN #1 Prurigo Nodularis with the extensive pruritus The nature of condition was discussed with patient, she does not seem to have any signs of any overwhelming infection. We discussed the increased risk for infection with the scratching. She does report having a lot of acne like papules that developed prior to the areas becoming sores. She may continue with the topical clindamycin and recommend adding benzoyl peroxide wash to help reduce antibiotic resistance. Given the extensive pruritus patient was agreeable to intralesional Kenalog injectionstoday in addition to clobetasol 0.05% solution twice daily as needed to affected areas for pruritus. She will return in 6 weeks for recheck and repeat injections if needed. PROCEDURE DETAILS Disposition options for this condition were discussed. Risks, benefits, and alternatives reviewed. After discussion, patient elected to proceed with intralesional Kenalog injection. Area was prepped and draped in the usual clean fashion. Kenalog 20 was injected to 8 sites on the scalp for a total of 1.7 mL. Post care instructions provided. #2 History Of Falling #3 Morbid Severe Obesity Due To Excess Calories (HCC) #4 Asthma Moderate Persistent (HCC) Condition(s) are managed in primary care and/or specialty care. PATIENT EDUCATION Ready to learn, no apparent learning barriers were identified; learning preferences include listening. Explained diagnosis and treatment plan; patient expressed understanding of the content. This note represents shared documentation between the assisting nurse and the encounter provider. The content has been reviewed and edited as needed by the provider. documented in this encounter Plan of Treatment Upcoming Encounters Date Type Department Care Team (Late st Contact Info) Description 08/04/2023 2:00 PM CDT Office Visit Department of Family Medicine, [facility], in [place], [place] [address] [place] [phone] Terri Dominguez APRN, C.N.P. [address], [place] [phone] Scheduled Referrals Name Type Priority Associated Diagnoses Order Schedule Dermatology office visit (clinic) Outpatient Referral Routine Expected: 08/03/2023 (Approximate), Expires: 09/20/2024 documented as of this encounter Visit Diagnoses Diagnosis Prurigo Nodularis- Primary History Of Falling Morbid Severe Obesity Due To Excess Calories (HCC) Asthma Moderate Persistent (HCC) documented in this encounter Administered Medications Inactive Administered Medications - up to 3 most recent administrations Medication Order MAR Action Action Date Dose Rate Site triamcinolone acetonide injection 20 mg (KENALOG-40) 20 mg, intralesional, Once, On Saba 06/22/23 at 1400, For 1 dose Given by Other 06/22/2023 2:09 PM CDT 20 mg Oth er documented in this encounter Care Teams Corporate Librarian Relationship Specialty Start Date End Date Thao Zhu D.O. [address] [place] [phone] PCP - General Family Medicine 04/23/19 documented as of this encounter
--- OUTSIDE RECORDS SUMMARY | 2023-07-06 21:12 | XMS_ITS ---
Author Name Unknown Organization [facility] Address [address] [place] [address] Care Team Providers Care Redye Hand Name Role Phone Unavailable Unavailable Unavailable Surgery Details Not on file Complications Check Surgery Details section. Procedure Estimated Blood Loss Check Surgery Details section. Procedure Findings Check Surgery Details section. Procedure Specimens Taken Check Surgery Details section.
--- OUTSIDE RECORDS SUMMARY | 2023-07-06 21:12 | XMS_ITS | Referral Summary ---
Author Name Unknown Organization [facility] Address [address] [place] [address] Care Team Providers Care Drug And Alcohol Counsellor Name Role Phone Thao Zhu D.O. Primary Care Provider [phone] Source Comments Patient records contain information from all sites at [facility]. For routine questions regarding patient records, call [phone] during business hours, M-F 8:00 AM - 5:00 PM Central Time. Record requests for emergency care only can be directed to [phone] at any time.[facility] Encounters Date Type Department Care Team Description 06/22/2023 1:00 PM CDT Comprehensive Visit Department of Family Medicine, [facility], in [place], [place] [address] [place] [phone] Terri Dominguez APRN, C.N.P. Prurigo Nodularis (Primary Dx); History Of Falling; Morbid Severe Obesity Due To Excess Calories (HCC); Asthma Moderate Persistent (HCC) 05/16/2023 Orders Only [facility] Thao Zhu D.O. Hyperlipidemia Mixed 05/12/2023 Refill Urgent Care in [place], [place] [address] [place] [phone] Thao Zhu D.O. 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 Patient declined 04/08/2021 Do you belong to any clubs o r organizations such as mosque groups, unions, fraternal or athletic groups, or [...] place to sleep or slept in a skilled nursing (including now)? No 04/08/2021 Nutrition Answer Date [...] T Respiratory Rate 20 05/05/2021 2:12 PM PETROLEUM INSPECTOR Oxygen Saturation 98% 06/16/2021 8:55 PM CDT [...] CDT Office Visit Department of Family Medicine, [facility], in [place], [place] [address] [place] [phone] Terri Dominguez APRN, C.N.P. [address] [place] [phone] Procedures Procedure Name Priority Date/Time Associated Diagnosis Comments EXTI COMPREHENSIVE METABOLIC PANEL, S/P Routine 09/19/2022 2:40 PM CDT EXTI LIPID PANEL W REFLEX MEASURED LDL Routine 02/28/2022 9:23 AM PETROLEUM INSPECTOR EXTI THYROID-STIMULATING HORMONE-SENSITIVE (S-TSH), S Routine 02/28/2022 9:23 AM PETROLEUM INSPECTOR from Last 3 Months or Most Recently Relevant to Health Maintenance Care Teams Drug And Alcohol Counsellor Relationship Specialty Start Date End Date Thao Zhu D.O. [address] [phone] PCP - General Family Medicine 04/23/19
--- OUTSIDE RECORDS SUMMARY | 2023-07-06 21:12 | XMS_ITS | Encounter Summary ---
Author Name Unknown Organization [facility] Address [address] [place] [address] Care Team Providers Care Retread Technician Name Role Phone Thao Zhu D.O. Primary Care Provider [phone] Reason for Referral * Outpatient (Routine) - Authorized Specialty Diagnoses / Procedures Referred By Marbella t Referred To Contact Thao Zhu D.O. [address] [place] [address] [facility] Region Referral ID Status Reason Start Date Expiration Date V isits Requested Visits Authorized [id number] Authorized 05/16/2023 11/14/2024 1 1 Scheduling Instructions Nurse AWV Do not schedule prior to due date to ensure insurance coverage Visit: Medicare Annual Wellness Never done. WORKER * Outpatient (Routine) - Authorized Specialty Diagnoses / Procedures Referred By Marbella branham Referred To Contact Family Medicine Thao Zhu D.O. [address] [place] [phone] [facility] Region Referral ID Status Reason Start Date Expiration Date V isits Requested Visits Authorized [id number] Authorized 05/16/2023 11/14/2024 1 1 Scheduling Instructions Medicare annual provider visit/HCC gaps Do not schedule prior to due date to ensure insurance coverage Visit: Medicare Annual Wellness Never done. WORKER * Outpatient (Routine) - Authorized Specialty Diagnoses / Procedures Referred By Marbella branham Referred To Contact Family Medicine Thao Zhu D.O. [address] [place] [phone] [facility] Region Referral ID Status Reason Start Date Expiration Date V isits Requested Visits Authorized [id number] Authorized 05/16/2023 11/14/2024 1 1 WORKER Encounter Details Date Type Department Care Team (Late st Contact Info) Description 05/16/2023 Orders Only [facility] Thao Franco D.O. [address] [place] [phone] Hyperlipidemia Mixed Social History Tobacco Use Types Packs/Day Years [...] How often do you attend chur or anabaptist services? Patient declined 04/08/2021 Do you belong to any clubs o r organizations such as yazdanism groups, unions, fraternal or athletic groups, or [...] housing, medical care, and heating? Hard 04/08/2021 [facility] - [...] place to sleep or slept in a detention (including now)? No 04/08/2021 Nutrition Answer Date [...] CDT Office Visit Department of Family Medicine, [facility], in [place], [place] [address] [place] [phone] Terri Dominguez APRN, C.N.P. [address] [phone] Scheduled Orders Name Type Priority Associated Diagnoses Orde r Schedule Lipid Panel Lab Routine Hyperlipidemia Mixed Expected: 05/30/2023, Expires: 11/12/2023 Scheduled Referrals Name Type Priority Associated Diagnoses Orde r Schedule Family Medicine office visit (clinic) Outpatient Referral Routine Expected: 05/30/2023, Expires: 11/12/2023 Family Medicine office visit (clinic) Outpatient Referral Routine Expected: 06/13/2023, Expires: 11/12/2023 Primary Care nurse visit (clinic) - [facility]; Medicare Annual Wellness Outpatient Referral Routine Expected: 06/13/2023, Expires: 11/12/2023 documented as of this encounter Visit Diagnoses Diagnosis Hyperlipidemia Mixed documented in this encounter Care Teams Retread Technician Relationship Specialty Start Date End Date Thao Zhu D.O. [address] [place] [phone] PCP - General Family Medicine 04/23/19 documented as of this encounter
--- OUTSIDE RECORDS SUMMARY | 2023-07-06 21:12 | XMS_ITS | Clinical Summary ---
Author Name Unknown Organization [facility] Address [place], [place] [address] Care Team Providers Care Tennis Court Attendant Name Role Phone Montana Lomeli MD Unavailable Leyla Sands DO Primary Care Provider [phone] Allergies Active Allergy Reactions Criticality Noted Date Comments Acetaminophen *Unknown 02/23/2022 Coconut Oil Tongue Swelling High 04/18/2011 Hydromorphone Itching 02/17/2017 Venlafaxine Analogues Diaphoresis 12/21/2010 xs sweating Hydrocodone Rash Medium 01/08/2019 Oxycodone-Acetaminophen Vomiting 04/03/2007 emesis Pollen Extracts Itching 01/03/2019 Nasal congestion (cottonwood trees, mold, some grasses, pine tree, cat dander, etc )_ Quetiapine Fumarate Other - Describe In Comment Field 08/13/2013 Severe nightmares Tetracycline Rash 09/04/2007 Tramadol Hives 08/21/2007 Trazodone Other - Describe In Comment Field 12/21/2010 Memory loss Wheat Flour Other - Describe In Comment Field 10/20/2011 Positive celiac result after EGD Medications Medication Sig Dispensed Refills Start Date End Date Status lysine (L-LYSINE) 500 mg Tab Take 500 mg by mouth 2 times daily if needed. 0 03/07/20 11 Active EPINEPHrine (EPIPEN) 0.3 mg/0.3 mL (1:1,000) injectionIndication s:Urticaria, unspecified Inject 0.3 mg intramuscular one time if needed (for allergic reaction). 2 mL 2 05/29/19 14 Active benzoyl peroxide 10% topical (CLEARASIL) 10 % gelIndications:Othe r acne Apply topically to affected area(s) every morning. 1 Tube 5 10/30/19 15 Active melatonin 3 mg tabletIndications:S leep concern Take 2 tablets by mouth at bedtime. 0 09/08/19 18 Active nebulizer accessories kitIndications:Mild persistent asthma without complication For home use. Length of need: 99 months 1 Kit 01/10/20 18 Active VIOS FOR HOME USE. LENGTH OF NEED: 99 MONTHS 0 01/10/20 18 Active fexofenadine (ESTUARDO) 180 mg tablet Take 1 tablet by mouth once daily. 0 11/22/19 19 Active albuterol-ipratropi um (DUONEB) (2.5-0.5 mg) in 3 mL NEBULIZATION solutionIndications :Mild persistent asthma without complication Inhale 3 mL via a nebulizer 4 times daily if needed (asthma). 180 mL 3 06/24/19 20 Active Blood Pressure Kit Med & Lrg kitIndications:H/O ambulatory blood pressure monitoring As directed once daily if needed. 1 Kit 07/22/19 20 Active mometasone (NASONEX) (50 mcg each actuation) nasal sprayIndications:Se asonal allergic rhinitis due to pollen Inhale 2 Sprays into both nostrils 2 times daily. 0 12/31/19 20 Active albuterol HFA (PRO-AIR; VENTOLIN; PROVENTIL) 90 mcg/actuation inhalerIndications: Mild persistent asthma without complication TAKE 1-2 PUFFS BY MOUTH EVERY 4 HOURS NEEDED. 8.5 g 12/29/19 21 Active cholecalciferol, Vitamin D3, 2,000 unit tablet Daily Active hydrocortisone 2.5% cream APPLY TO AFFECTED AREA ON FACE 1-2X DAILY FOR 2 WEEKS AT A TIME REPEAT NEEDED FOR FLARES 10/13/19 22 Active divalproex (DEPAKOTE) 500 mg Delayed-Release tabletIndications:O ther migraine without status migrainosus, not intractable Take 1 Tablet (500 mg) by mouth at bedtime. 90 Tablet 3 04/29/19 23 Active fluticasone propion-salmeteroL (ADVAIR) 250-50 mcg/Dose diskus inhalerIndications: Moderate persistent asthma without complication Inhale 1 Puff by mouth two times daily. 180 Each 3 04/29/19 Active hydrOXYzine HCL (ATARAX) 25 mg tabletIndications:P ruritic condition Take 1 Tablet (25 mg) by mouth every 6 hours if needed for Itching. 40 Tablet 1 04/29/19 Active meclizine chewable (ANTIVERT) 25 mg tabletIndications:O ther migraine without status migrainosus, not intractable Chew 1 Tablet (25 mg) by mouth 2 times daily if needed (dizziness). 90 Tablet 1 04/29/19 Active montelukast (SINGULAIR) 10 mg tabletIndications:M ild persistent asthma without complication,Season al allergic rhinitis due to pollen Take 1 Tablet (10 mg) by mouth at bedtime. 90 Tablet 3 04/29/19 Active omeprazole (PRILOSEC) 20 mg Delayed-Release capsuleIndications: Gastroesophageal reflux disease, unspecified whether esophagitis present,Hiatal hernia Take 1 Capsule (20 mg) by mouth two times daily before meals. 180 Capsule 3 04/29/19 Active clindamycin phosphate 1% topical 1 % external solution As directed 05/29/19 Active mupirocin (BACTROBAN OINTMENT) ointment As directed 05/30/19 Active doxycycline monohydrate (MONODOX) 100 mg capsule 100 mg two times daily. 05/30/19 Active levothyroxine (SYNTHROID) 125 mcg tabletIndications:A cquired hypothyroidism Take 1 Tablet (125 mcg) by mouth once daily. Best if taken on empty stomach. 90 Tablet 1 08/27/19 Active LORazepam (ATIVAN) 1 mg tablet Take 1 Tablet by mouth at bedtime. [facility] 06/29/19 Active ondansetron (ZOFRAN) 8 mg tabletIndications:N ausea and vomiting, unspecified vomiting type Take 1 Tablet (8 mg) by mouth every 8 hours if needed for Nausea/Vomiting. 8 Tablet 2 12/21/19 23 Active cloNIDine HCL (CATAPRES) 0.1 mg tabletIndications:P sychophysiological insomnia TAKE 1 TABLET(0.1 MG) BY MOUTH THREE TIMES DAILY 270 Tablet 03/01/20 Active busPIRone (BUSPAR) 30 mg tabletIndications:P TSD (post-traumatic stress disorder) TAKE 1 TABLET(30 MG) BY MOUTH TWICE DAILY 60 Tablet 04/14/19 24 Active primidone (MYSOLINE) 50 mg tabletIndications:E ssential tremor TAKE 1 TABLET BY MOUTH DAILY AT BEDTIME 30 Tablet 05/01/19 24 Active ketoconazole 2% shampoo (NIZORAL) 2 % shampooIndications: Scalp dermatophytosis Shampoo the hair every other day. 120 mL 04/28/19 24 Active trimethoprim-sulfam ethoxazole, 160-800 mg, (BACTRIM DS, SEPTRA DS) tabIndications:Sinu sitis, unspecified chronicity, unspecified location TAKE 1 TABLET BY MOUTH TWICE DAILY FOR 14 DAYS 28 Tablet 05/11/19 24 Active tiZANidine (ZANAFLEX) 2 mg tabletIndications:L umbar facet arthropathy TAKE 1 TABLET(2 MG) BY MOUTH EVERY 8 HOURS NEEDED FOR MUSCLE SPASM 120 Tablet 05/15/19 24 Active gabapentin (NEURONTIN) 300 mg capsuleIndications: Other migraine without status migrainosus, not intractable TAKE 3 CAPSULES(900MG) BY MOUTH THREE TIMES DAILY 810 Capsule 06/16/19 24 Active FLUoxetine (PROZAC) 40 mg capsuleIndications: PTSD (post-traumatic stress disorder) Take 2 Capsules (80 mg) by mouth once daily. 60 Capsule 06/28/19 24 Active gabapentin (NEURONTIN) 300 mg capsuleIndications: Other migraine without status migrainosus, not intractable Take 3 Capsules (900 mg) by mouth three times daily. 810 Capsule 3 04/29/19 23 024 Discontinued FLUoxetine (PROZAC) 40 mg capsuleIndications: PTSD (post-traumatic stress disorder) TAKE 2 CAPSULES(80 MG) BY MOUTH EVERY DAY 60 Capsule 2 12/03/19 23 024 Discontinued(Re order (E-cancel not sent)) Active Problems Problem Noted Date Diagnosed Date Change in bowel habits 09/22/2022 Simple chronic bronchitis 04/29/2022 Depression, recurrent 04/29/2022 Personality disorder 02/28/2022 Overweight 07/12/2021 Scalp dermatophytosis 07/12/2021 Adjustment disorder with depressed mood 09/11/19 DDD (degenerative disc disease), cervical 2018 Overview: MRI 2011 mild disc buldge at C5-6 Other chronic sinusitis 09/26/2018 Posttraumatic stress disorder 01/18/2018 Controlled substance agreement signed 07/28/2016 Overview: Signed: 06/13/14 Dr. Montana Lomeli / psychiatry Seasonal allergic rhinitis due to pollen 016 Anxiety 10/13/2015 Hiatal hernia 04/01/2015 Migraine without status migrainosus, not intract able 12/09/2014 Tobacco abuse 01/21/2014 Mixed hyperlipidemia 07/03/2012 L5-S1 mild DDD and annular tear 05/04/2012 Overview: ~ May 2012: L5-S1 interlaminar [...] Pérez. July 2017: Repeat MRI Lumbar Spine. Lumbar facet arthropathy 05/04/2012 Tachycardia, unspecified 04/17/2012 Chondromalacia of both patellae 04/17/2012 KEE (nonalcoholic steatohepatitis) 04/06/2012 LFTs abnormal 03/29/2012 Pain medication agreement, erx verified 01/28/20 12 Overview: Controlled substance contract signed 08/17/11, see scanned document JOYCE SCHERER RN 01/28/2012 4:40 AM Celiac disease 10/19/2011 Overview: EGD 10/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 EGD 09/2017 Walker 2 celiac disease Vitamin D deficiency 08/04/2010 Leg cramps 04/20/2010 Anemia, iron deficiency 04/20/2010 Cystic acne 08/20/2009 Migraine 05/15/2009 Other acne 02/01/2008 Urticaria, unspecified 02/01/2008 Overview: Angioedema from raspberries Unspecified hypothyroidism 09/25/2007 Moderate persistent asthma without complication 07/23/2007 Overview: Mild intermittent Other tear of cartilage or meniscus of knee, cur rent 04/04/2007 Overview: pt has opted to not have surgery Reflux esophagitis 12/26/2006 Diaphragmatic hernia without mention of obstruction or gangrene 12/26/2006 Resolved Problems Problem Noted Date Diagnosed Date Resolved Date Severe recurrent depression with psychosis 05/09/2014 06/13/2014 Anxiety state, unspecified 05/30/2012 0 10/17/2012 Severe obesity (BMI >= 40) 04/04/2007 0 07/12/2021 Generalized anxiety disorder 02/13/2007 10/13/2015 Migraine, unspecified, witho ut mention of intractable migraine without mention of status migrainosus 05/15/2009 Overview: Hx of migraines Encounters Date Type Department Care Team Description 07/05/2023 8:15 AM CDT Office Visit [facility] [address] [place] [address] Avril Stephen MD Failed Appointment 06/28/2023 Refill [facility] [address] [place] [address] Leyla Sands, DO Refill Request (Tizanidine) 06/15/2023 Refill [facility] [address] [place] [address] Leyla Sands, DO Refill Request (Gabapentin) 05/28/2023 Telephone [facility] [place] [address] [address] [place], [place] [id number] Ninfa Petty PA Refill Request (Ondansetron) 05/14/2023 Refill [facility] [address] [place] [address] Lupis Andersen PA Refill Request (Tizanidine) 05/10/2023 Refill [facility] [address] [place] [address] Bradly Rod MD Refill Request (Trimethoprim-sulfam ethoxazole (160-800 Mg)) 04/27/2023 1:40 PM MR TEACHER Office Visit [facility] [address] [place] [address] Bradly Rod MD Cough (X 6 weeks, phlegm, sinus pressure and chest); Derm Problem (Small,scabs all over scalp, weeping, itches, melgoza, x 2 months) 04/27/2023 Refill [facility] [address] [place] [address] Leyla Sands DO Refill Request (PRIMIDONE 50MG TABLETS) 04/27/2023 Travel 04/14/2023 Refill [facility] [address] [place] [address] Avril Stephen MD Refill Request (Buspirone) from Last 3 Months Immunizations Name Administration Dates Next Due AMB Influenza, IIV3 (Age >=3 years)(Flu Clinic Only) 01/01/2008 AMB Influenza, IIV4 PF (=>6 mos Flulaval,Fluzone Fluarix)(Flu Clinic Only) 01/08/2015 COVID-19 vaccine (Briteseed-Bio NTech 30mcg/0.3mL) 12YO+ BIVALENT PF, MDV 04/29/2022 COVID-19 vaccine (Briteseed-Bio NTech 30mcg/0.3mL) 12YO+ NORIS-SUCROSE PF, MDV 05/26/2021 Hepatitis B (Adult) 08/30/2011,10/22/2007,2007 Influenza A (H1N1), Inactiva pratibha (Age >=3 Years) 02/17/2009 Influenza Virus, Unspecified 04/29/2022, 03/08/2021,01/27/2020,2001 Influenza, IIV3 (Age 6-35 mos) 12/01/2009,2008,05/16/2007 Influenza, IIV3 (Age >=3 years) 12/05/19 13,12/01/2011,12/21/2010,2009,02/17/2009,05/16/2007 Influenza, IIV4 04/29/2022, 8,12/23/2016,2015,01/08/2015,11/27/2013 Influenza, IIV4 (=>6mos) MDV 10/24/2018,10/31/19 18 MMR 2007 Pneumococcal Poly,23-Valent (Pneumovax) 03/10/2010 Pneumococcal conj 13-Valent (Prevnar 13) 12/23/2016 Td (Age >=7 Years) 04/19/2005,07/09/2003, 003 Td, Preservative Free (age > = 7 Years) 06/28/2022 Tdap 07/05/2012,09/19/2007 Tuberculin (PPD) 2007,09/19/2007 Family History Medical History Relation Name Comments Hypertension Father b 1942 Cancer-breast Maternal Aunt great aunt Cancer-prostate Maternal Grandfather Good Health Mother b 194 Psychiatric illness Mother depressi on Diabetes Sister Anesthesia Problem No Family History Blood Disease No Family History Relation Name Status Comments Brother Alive Father Alive Maternal Aunt Maternal Grandfather Mother Alive Sister Alive Social History Tobacco Use Types Packs/Day Years Used Date Smoking Tobacco: Every Day Cigarettes 0.3 15.3 Started: 2008 Smokeless Tobacco: Never Tobacco Cessation:Ready to Q uit: No; Counseling Given: Yes Alcohol Use Standard Drinks/Week Comments Yes 0 (1 standard drink = 0.6 oz pur e alcohol) 1-2 drinks per week PHQ-2 Answer Date Recorded PHQ-2 TOTAL SCORE 4 08/29/2022 Social Connections Answer Date Recorded Frequency of Communication with Friends and Fami ly 4 03/31/2023 Alcohol Use Answer Date Recorded How often do you have a drink containing alcohol ? 2 08/29/2022 Average Number of Drinks Not on file 023 Frequency of Binge Drinking Not on file 08/11 Financial Resource Strain Answer Date R ecorded Difficulty of Paying Living Expenses Not on file 03/31/2023 Difficulty of Paying Living Expenses 3 03/31/2023 Food Insecurity Answer Date Recorded Worried About Running Out of Food in the Last Ye ar 2 03/31/2023 Transportation Needs Answer Date Record ed Lack of Transportation (Medical) 1 03/31/2023 Housing Stability Answer Date Recorded Unable to Pay for Housing in the Last Year 1 03/31/2023 Sex and Gender Information Value Date Recorded Sex Assigned at Female 09/06/2019 1:40 PM CDT Gender Identity Female 09/06/2019 1:40 PM CDT Sexual Orientation Straight 09/06/2019 1: 40 PM CDT Obstetrics History Para Term AB IAB SAB Ectopic Multiple Livin g Live Births 5 1 1 0 4 0 4 0 0 1 Date Outcome GA Total Labor Labor/2nd/3rd Weight Sex Delivery Anes PTL Merry A1 A5 Name Cl in SAB SAB SAB SAB Term Last Filed Vital Signs Vital Sign Reading Time Taken Comments Blood Pressure 103/68 04/27/2023 1:51 PM MR TEACHER Pulse 67 04/27/2023 1:51 PM MR TEACHER Temperature 36.7 ??C (98 ??F) 03/31/2023 10:03 AM MR TEACHER Respiratory Rate 16 12/20/2022 1:50 PM CDT Oxygen Saturation 98% 04/27/2023 1:51 PM MR TEACHER Inhaled Oxygen Concentration - - Weight 74.9 kg (165 lb 1.6 oz) 04/27/2023 1:51 P M MR TEACHER Height 157.5 cm (5' 2) 04/27/2023 1:51 PM MR TEACHER Body Mass Index 30.2 04/27/2023 1:51 PM MR TEACHER Plan of Treatment Health Maintenance Due Date Last Done Comments Mammogram for age 45-75 12/07/2018 12/08/19 18, 10/23/2012, 05/07/2010 Zoster (shingles) series for age 50+ (1 of 2) 2022 COVID-19 vaccine series (2022-24 season) 2022 04/29/2022, 05/26/2021, 06/30/2020, Additional history exists Pap test for age 21-65 11/29/2022 8, 11/29/2017, 05/28/2013, Additional history exists Depression screening for age 12+ 09/01/2023 08/31/2022, 08/30/2022, 08/29/2022, Additional history exists Influenza for age 50-64 11/12/2023 04/29/19 23, 04/29/2022, 03/08/2021, Additional history exists BMI (ht and wt on same day) for age 18+ 04/27/2024 04/27/2023, 02/28/2022, 11/24/2021, Additional history exists Lipids for age 45-75 02/28/2027 02/28/2022, 10/13/2015, 08/15/2012, Additional history exists Tetanus booster 06/28/2032 06/28/2022, 04/07/2012, 09/19/2007, Additional history exists Colonoscopy through age 75 09/22/2032 09/22/2022 Pneumococcal series for age 6-64 (3 of 3 - PPSV23 or PCV20) 2037 12/23/2016, 03/10/2010 Tdap Completed 07/05/2012, 09/19/2007 HIV for age 15-65 Completed 03/26/2013 Hepatitis C screening for ag e 18-79 Completed 03/26/2013, 03/22/2012 Medical Devices Implanted Type Area Watch Engine Operator Device Identifier Shelf Expiration Date Model / Serial / Lot Stent Ent Reg Steroid-Releas ing Propel Bioabsorb - [id number] Implanted:Qty: 1 on 01/07/2019 by Eliseo Hansen MD at [facility] Ent Implants [employer] one sinus implant 09/01/2019 [id number]# / / [id number] Description:Propel One sinus implant Nominal length: 23mm Stent Ent Reg Steroid-Releas ing Propel Bioabsorb - [id number] Implanted:Qty: 1 on 01/07/2019 by Eliseo Hansen MD at [facility] Ent Implants [employer] one sinus implant 10/14/2019 [id number]# / / [id number] Description:Propel One sinus implant Nominal length: 23mm Procedures Procedure Name Priority Date/Time Associated Diagnosis Comments COLONOSCOPY 09/22/2022 11:27 AM CDT LIPID PANEL W REFLEX MEASURED LDL Routine 02/28/2022 9:23 AM MR TEACHER Mixed hyperlipidemia XR MAMMO BILAT SCREENING Routine 12/07/2017 4:01 PM CDT Visit for screening mammogram SUPERINTENDENT STEVEDORING THIN PREP PAP SCREEN IMAGED Routine 11/29/2017 11:22 AM CDT Pap smear for cervical cancer screening ANTI HIV 1/2 Routine 03/26/2013 11:54 AM MR TEACHER Screen for STD (sexually transmitted disease) ANTI HCV Routine 03/26/2013 11:54 AM MR TEACHER Screen for STD (sexually transmitted disease) from Last 3 Months or Most Recently Relevant to Health Maintenance Results * COLONOSCOPY (09/22/2022 11:27 AM CDT) 09/22/2022 11:2 7 AM CDT Narrative Transcriptions Paula Bob DO - 09/27/2022 7:39 AM CDT Patient Name: Diya Soto Procedure Date: 09/22/2022 Gender: Female Date of : 1970 Admit Type: Ambulatory Procedure: Colonoscopy Proceduralist: Paula Bob MD Indications/Pre-Op Diagnosis: Change in bowel habits Medications: Propofol per Anesthesia, MonitoredAnesthesia Care Procedure Description: The patient had risks, benefits and alternatives explained to andgave informed consent. The patient had a stable cardiopulmonary status and judged an adequate candidate for conscious sedation. The endoscope -[id number] was passed through the anus andadvanced to the cecum, identified by appendiceal orifice and ileocecal valve.The colonoscopy was performed without difficulty. The patient toleratedthe procedure well. The quality of the bowel preparation was good. The ileocecal valve, appendiceal orifice, and rectum were photographed. Complications: No immediate complications. Estimated Blood Loss & Specimen: Estimated blood loss was minimal. Specimen collected - None Findings: The perianal and digital rectal examinations were normal. The colon (entire examined portion) appeared normal. Biopsies for histology were taken with a cold forceps from the entire colon for evaluation of microscopic colitis. Verification of patient identification for the specimen was done. Estimated blood loss was minimal. Impressions/Post-Op Diagnosis: - The entire examined colon is normal. Biopsied. Recommendation: - Discharge patient to home. - Resume previous diet. - Continue present medications. - Await pathology results. Paula Bob MD 09/27/2022 7:39:04 AM This report has been signed electronically. Note Initiated On: 09/22/2022 11:27 AM Paula Bob DO PROCEDURE ORD * LIPID PANEL W REFLEX MEASURED LDL (02/28/2022 9:23 AM MR TEACHER) CHOLESTEROL,TOTAL 162 100 - 199 mg/dL 03/01/2022 7:23 AM [facility] TRIGLYCERIDES 128 <150 mg/dL 03/01/2022 7:23 AM [facility] HDL CHOLESTEROL 44 >40 mg/dL 7:23 AM [facility] NON-HDL CHOLESTEROL 118 <145 mg/dl 03/01/2022 7:23 AM [facility] TR[facility] CHOL/HDL RATIO 3.68 <4.50 03/01/2022 7:23 AM [facility] TRAL LAB[facility] LDL CHOLESTEROL 92 <=130 mg/dL 03/01/2022 7:23 AM [facility] TRAL LAB[facility] VLDL CHOLESTEROL 26 <=30 mg/dL 03/01/2022 7:23 AM MR TEACHER [facility] TRAL LABORATORY PROVIDER ORDERED STATUS RANDOM 03/01/2022 7:23 AM MR TEACHER [facility] TRAL LABORATORY Blood BLOOD SPECIMEN / Unknown Venipuncture / Unknown 02/28/2022 9:23 AM MR TEACHER 02/28/2022 9:23 AM MR TEACHER Bj Noe MD CHEMISTRY [facility] [address] [place] [address], [place] * XR MAMMO BILAT SCREENING (12/07/2017 4:01 PM CDT) Anatomical Region Laterality Modality BREASTS, Breast Left, Breast Right Bilateral Mammography Impressions 12/08/2017 3:27 PM CDT ??BI-RADS Category 0: Incomplete: Need Additional Imaging Evaluation and/or Prior Mammograms for Comparison RECOMMENDATION: ??BILATERAL breast ultrasound. ?? Jose Alberto Wesley D.O. Diagnostic Radiologist [email or web address] EDY/lizeth ?? / Narrative 12/08/2017 3:27 PM CDT BILATERAL DIGITAL SCREENING MAMMOGRAM WITH COMPUTER-AIDED DETECTION, 12/07/2017 CLINICAL HISTORY: ??Screening. ?? COMPARISON: ??10/23/2012, 05/07/2010. ?? TECHNIQUE: ??These mammographic images have been obtained using digital technique. ??CC and MLO projections of both breasts interpreted with the aid of computer-aided detection. ?? BREAST COMPOSITION: ??Scattered fibroglandular densities. ?? FINDINGS: ??In the RIGHT breast there is a new well-circumscribed slightly lobulated 18 mm mass at the mid 6 o'clock position and a probable smaller 7 mm mass at the 6 o'clock position anterior to the larger lesion. ??In the LEFT breast there is a new 7 mm mass in the mid 3 o'clock position. ??No areas of architectural distortion or suspicious calcifications seen. ?? Bj Noe MD MAMMO * SUPERINTENDENT STEVEDORING THIN PREP PAP SCREEN IMAGED (11/29/2017 11:22 AM CDT) Case Report Gynecologic Cytology Report ? Case: [id number] ? Authorizing Provider: ??Bj Noe MD ??Collected: ? 11/29/2017 1122 ? Ordering Location: ? [facility] ?? Received: ?11/29/2017 1152 ? Clinic ? First Screen: ?Hubert Nicholas ? Specimen: ?SUPERINTENDENT STEVEDORING ThinPrep Vial Screening, Cervical ? 12/08/2017 2:35 PM CDT [facility]-C ENTRAL LABORATORY INTERPRETATION/ RESULT NEGATIVE FOR INTRAEPITHELIAL LESION OR MALIGNANCY (NIL) (none) 12/08/2017 2:35 PM CDT [facility] IMEN ADEQUACY Satisfactory for evaluation No endocervical component seen 12/08/2017 2:35 PM CDT [facility] HPV REQUEST HPV and PAP 12/08/2017 2:35 PM CDT [facility] Date of LMP 11/12/17 12/08/2017 2:35 PM CDT [facility] Last Pap Date 05/28/13 12/08/2017 2:35 PM CDT [facility] Last Pap Result NIL 8 2:35 PM CDT [facility] Abnormal Pap or [place] Bx in last 5 years No 12/08/2017 2:35 PM [facility]T [facility] Menstrual Status Regular Periods 12/08/2017 2:35 PM CDT [facility] [place] Bx Done Today No 12/08/2017 2:35 PM CDT [facility] Additional Information None given 12/08/2017 2:35 PM CDT [facility] Automated Review Successful 12/08/2017 2:35 PM CDT [facility] Comment:Specimen processed s uccessfully by automated power cleaner operator device, ThinPrep Imaging System, [employer] ANCILLARY TESTING SUPERINTENDENT STEVEDORING HPV Ordered, Please see separate report 12/08/2017 2:35 PM CDT [facility] Note The pap test is a screening technique, not a diagnostic procedure. ??It is used primarily to screen for squamous cancers and precursor lesions. ??Published studies have shown that it is subject to both false negative and false positive results. ??The pap test should not be used as the sole means to diagnose or exclude pre-malignant and malignant lesions. Cytology is screened and interpreted at [facility] - [address], [place] [address] and [facility] - [address] [place] [address]; [place] [address] and [facility] - [address]; [place] [address] and [facility] [address]; [place] [address] 12/08/2017 2:35 PM CDT [facility]-C ENTRAL LABORATORY Other (Cervical) Non-Blood / Unknown 11/29/2017 11:22 AM CDT 11/29/2017 11:52 AM CDT Bj Noe MD PATHOLOGY/CYTOLO GY [facility]AL LABORATORY [address] [place] [address], * ANTI HCV (03/26/2013 11:54 AM MR TEACHER) ANTI HCV Non-reacti ve [facility] Blood specimen (specimen) BLOOD SPECIMEN / Unknown 03/26/2013 11:54 AM MR TEACHER 03/26/2013 11:52 AM MR TEACHER Lupis GOETZ SEND OUTS [facility] INTERNAL ZIP [id number] [address] [place] [address] * ANTI HIV 1/2 (03/26/2013 11:54 AM MR TEACHER) ANTI HIV 1/2 Non-reacti ve [facility] Blood specimen (specimen) BLOOD SPECIMEN / Unknown 03/26/2013 11:54 AM MR TEACHER 03/26/2013 11:52 AM MR TEACHER Lupis GOETZ SEND OUTS [facility] INTERNAL ZIP [id number] [place] [address] from Last 3 Months or Most Recently Relevant to Health Maintenance Advance Directives * Full Code (Latest Code Status on File) Date Activated Date Inactivated Comments 09/22/2022 10:44 AM 09/22/2022 4:56 PM Question Answer Comments Code Status Discussion: Discussed * Full Code Date Activated Date Inactivated Comments 09/21/2022 12:26 PM 09/22/2022 2:29 AM Question Answer Comments Code Status Discussion: Discussed * Full Code Date Activated Date Inactivated Comments 01/07/2019 11:38 AM 01/07/2019 6:21 PM Question Answer Comments Code Status Discussion: Per Existing Order * Full Code Date Activated Date Inactivated Comments 01/07/2019 9:07 AM 01/07/2019 11:38 AM Question Answer Comments Code Status Discussion: Per Existing Order Care Teams Tennis Court Attendant Relationship Specialty Start Date End Date Leyla [place] [address] PCP - General Family Practice 07/05/22 Montana Lomeli MD Psychiatry 05/28/13
== END 2023-07-06 21:13 | disposition home or self-care (01) ==
LOC: ED 21:06
PROVIDERS: Emergency Provider Emergency Medicine; PCP Family Medicine
DX: J06.9 Acute upper respiratory infection, unspecified (principal); L03.811 Cellulitis of head [any part, except face]
CPT/HCPCS: 99283

== ENCOUNTER 2023-11-12 11:45 | Emergency (ER) | payer OTHER, SELFPAY ==
[2023-11-12 11:50] VITALS: BP 116/77; PULSE 74; RESP 16; TEMP 36.6; O2SAT 97; BMI 30.2
--- NOTE | 2023-11-12 12:16 | ED.GENADULT ---
HPI - General Adult General Chief complaint: Skin/Abscess/Foreign Body Stated complaint: Infected head injury, cough, congestion Time Seen by Provider: 11/12/23 11:46 History of Present Illness HPI narrative: This 53-year-old female comes in reporting a persistent cough after completing a course of antibiotic treatment for a diagnosis of pneumonia that occurred about a month ago. She also has a recurrent problem with her scalp and has seen a design consultant who recommended she be on prophylactic antibiotic treatment for this. She is not currently on any such medication. She states that she took Augmentin in the past and it was very effective to treat her scalp condition. Related Data Home Medications ?Medication ?Instructions ?Recorded ?Confirmed Lactobacillus acidophilus 10 mg PO QDAY 12/23/21 03/19/23 buspirone 5 mg tablet 30 mg PO BID 12/23/21 03/19/23 cholecalciferol (vitamin D3) 50 2,000 unit PO DAILY 12/23/21 03/19/23 mcg (2,000 unit) tablet divalproex 125 mg tablet,delayed 500 mg PO QHS 12/23/21 03/19/23 release epinephrine 0.3 mg/0.3 mL 0.3 mg IM .As Needed PRN 12/23/21 03/19/23 injection, auto-injector fluoxetine 20 mg capsule 40 mg PO DAILY 12/23/21 07/06/23 fluticasone propionate 230 1 inh inhalation BID 12/23/21 03/19/23 mcg-salmeterol 21 mcg/actuation HFA inhaler gabapentin 300 mg capsule 300 mg PO Q8H 12/23/21 07/06/23 levothyroxine 125 mcg tablet 125 mcg PO DAILY 12/23/21 07/06/23 lysine 500 mg tablet 500 mg PO Q12H 12/23/21 07/06/23 melatonin 3 mg capsule 6 mg PO .Bedtime as needed PRN 12/23/21 03/19/23 montelukast 10 mg tablet 10 mg PO .Bedtime 12/23/21 03/19/23 omeprazole 20 mg capsule,delayed 20 mg PO BID 12/23/21 07/06/23 release tizanidine 2 mg capsule 2 mg PO Q8H PRN 12/23/21 03/19/23 albuterol sulfate 90 mcg/actuation 2 inh inhalation Q4H PRN 02/22/22 07/06/23 aerosol inhaler benzoyl peroxide 10 % topical 1 applic topical DAILY 02/22/22 03/19/23 cleanser clonidine HCl 0.1 mg tablet 0.1 mg PO Q12H 02/22/22 03/19/23 fexofenadine 180 mg tablet 180 mg PO DAILY 02/22/22 07/06/23 (Allergy Relief (fexofenadine)) hydroxyzine HCl 25 mg tablet 25 mg PO Q6H PRN 02/22/22 03/19/23 ipratropium 0.5 mg-albuterol 3 mg 3 ml inhalation Q6-8H PRN 02/22/22 03/19/23 (2.5 mg base)/3 mL nebulization soln mometasone 50 mcg/actuation nasal 2 spray intranasal Q12H 02/22/22 03/19/23 spray buspirone 30 mg tablet 30 mg PO BID 03/19/23 07/06/23 ketoconazole 2 % shampoo topical DAILY 03/19/23 ondansetron HCl 8 mg tablet mg PO 03/19/23 tizanidine 2 mg tablet 2 mg PO 3XD 03/19/23 07/06/23 clindamycin phosphate 1 % topical topical 07/06/23 solution clobetasol 0.05 % scalp solution 1 applic topical BID 07/06/23 07/06/23 fluoxetine 40 mg capsule mg PO 07/06/23 fluticasone 100 mcg-salmeterol 50 inhalation 07/06/23 mcg/dose blistr powdr for inhalation (Wixela Inhub) primidone 50 mg tablet 50 mg PO QPM 07/06/23 07/06/23 sulfamethoxazole 800 1 tab PO BID 07/06/23 07/06/23 mg-trimethoprim 160 mg tablet Previous Rx's ?Medication ?Instructions ?Recorded methylprednisolone 4 mg tablet 4 - 12 mg (1 - 3 x 4 mg) PO DAILY 03/20/23 #11 tabs amoxicillin 875 mg-potassium 1 tab PO BID #20 tabs 11/12/23 clavulanate 125 mg tablet methylprednisolone 4 mg tablets in See Rx Instructions PO .COMPLEX 11/12/23 a dose pack (Medrol (Murray)) #21 ea Allergies Allergy/AdvReac Type Severity Reaction Status Date / Time hydrocodone Allergy Mild Rash Verified 11/12/23 11:49 hydromorphone [From Dilaudid] Allergy Mild itching Verified 11/12/23 11:49 pollen extracts Allergy Mild itching Verified 11/12/23 11:49 sulfamethoxazole Allergy Mild Rash Verified 11/12/23 11:49 [From Bactrim] trimethoprim [From Bactrim] Allergy Mild Rash Verified 11/12/23 11:49 wheat Allergy Mild gluten Verified 07/06/23 19:15 intolerance quetiapine [From Seroquel] Allergy Unknown Verified 11/12/23 11:49 oxycodone Allergy Verified 11/12/23 11:49 prednisone Allergy itching Verified 11/12/23 11:49 Tetracyclines Allergy Rash Verified 11/12/23 11:49 tramadol Allergy loss of Verified 11/12/23 11:49 memory trazodone Allergy memory loss Verified 11/12/23 11:49 venlafaxine Allergy sweating Verified 11/12/23 11:49 potassium sparing diuretics Allergy Uncoded 02/23/22 00:18 Review of Systems Status of ROS: Reports: 10 or more systems reviewed and unremarkable except as noted in History and below Narrative: Constitutional: No fevers, no weight gain or loss. Eyes: No discharge. No vision changes. HENT: No congestion, no sore throat, no ear pain. Cardiovascular: No chest pain, no palpitations. Respiratory: No shortness of breath, no wheezes. She reports a productive cough. Gastrointestinal: No abdominal pain, no vomiting, no diarrhea. Genitourinary: No dysuria, no hematuria. Musculoskeletal: Normal range of motion. Skin: No rashes, no pruritis. Scalp lesions that occasionally drain. Neurological: No dizziness, weakness, sensory change, speech change. Endo/Heme/Allergies: No bruising or bleeding. No polydipsia. Pysch: no suicidality, no anxiety, no insomnia. All other systems reviewed and are negative. [facility] Medical History (Updated 11/12/23 @ 12:21 by Jose Alberto Bailon MD) MRSA (methicillin resistant staph aureus) culture positive ?Z22.322 - Carrier or suspected carrier of Methicillin resistant Staphylococcus aureus (ICD-10) Abnormal LFTs ?R79.89 - Other specified abnormal findings of blood chemistry (ICD-10) Hiatal hernia ?K44.9 - Diaphragmatic hernia without obstruction or gangrene (ICD-10) Seasonal allergic rhinitis due to pollen ?J30.1 - Allergic rhinitis due to pollen (ICD-10) PTSD (post-traumatic stress disorder) ?F43.10 - Post-traumatic stress disorder, unspecified (ICD-10) Chronic sinusitis ?J32.9 - Chronic sinusitis, unspecified (ICD-10) DDD (degenerative disc disease), cervical ?M50.30 - Other cervical disc degeneration, unspecified cervical region (ICD-10) Adjustment disorder with depressed mood ?F43.21 - Adjustment disorder with depressed mood (ICD-10) Tachycardia, unspecified ?R00.0 - Tachycardia, unspecified (ICD-10) Reflux esophagitis ?K21.00 - Gastro-esophageal reflux disease with esophagitis, without bleeding (ICD-10) KEE (nonalcoholic steatohepatitis) ?K75.81 - Nonalcoholic steatohepatitis (KEE) (ICD-10) Mixed hyperlipidemia ?E78.2 - Mixed hyperlipidemia (ICD-10) Migraine ?G43.909 - Migraine, unspecified, not intractable, without status migrainosus (ICD-10) Major depression, recurrent ?F33.9 - Major depressive disorder, recurrent, unspecified (ICD-10) Hypothyroidism, acquired ?E03.9 - Hypothyroidism, unspecified (ICD-10) Generalized anxiety disorder ?F41.1 - Generalized anxiety disorder (ICD-10) Diaphragmatic hernia without mention of obstruction or gangrene ?K44.9 - Diaphragmatic hernia without obstruction or gangrene (ICD-10) Cystic acne ?L70.0 - Acne vulgaris (ICD-10) Chondromalacia of both patellae ?M22.41 - Chondromalacia patellae, right knee (ICD-10) ?M22.42 - Chondromalacia patellae, left knee (ICD-10) Celiac disease ?K90.0 - Celiac disease (ICD-10) Anxiety ?F41.9 - Anxiety disorder, unspecified (ICD-10) Anemia ?D64.9 - Anemia, unspecified (ICD-10) Tobacco abuse ?Z72.0 - Tobacco use (ICD-10) Palpitations ?R00.2 - Palpitations (ICD-10) Osteoarthritis of patellofemoral joints of both knees ?M17.0 - Bilateral primary osteoarthritis of knee (ICD-10) Methicillin resistant Staphylococcus aureus infection ?A49.02 - Methicillin resistant Staphylococcus aureus infection, unspecified site (ICD-10) History of methicillin resistant Staphylococcus aureus infection ?Z86.14 - Personal history of Methicillin resistant Staphylococcus aureus infection (ICD-10) Gastroesophageal reflux disease ?K21.9 - Gastro-esophageal reflux disease without esophagitis (ICD-10) Dermatitis ?L30.9 - Dermatitis, unspecified (ICD-10) Chronic low back pain ?M54.50 - Low back pain, unspecified (ICD-10) ?G89.29 - Other chronic pain (ICD-10) Asthma ?J45.909 - Unspecified asthma, uncomplicated (ICD-10) Asthma (11/27/12) ?J45.909 - Unspecified asthma, uncomplicated (ICD-10) Surgical History [place] teeth extracted ?K08.409 - Partial loss of teeth, unspecified cause, unspecified class (ICD-10) Social History Smoking Status: Current every day smoker What tobacco products do you use: cigarettes Smoking packs per day: 0.5 Smoking cigarettes per day: 10.0 Years smoked: 30 Smoking pack-years: 15.00 Do you use any of these nicotine containing products: E-Cigarettes and Vaping Products Second hand tobacco smoke exposure: No How often do you have a drink containing alcohol: monthly or less How often do you have six or more drinks on one occasion: Never AUDIT-C Alcohol total score: 1 Non-prescribed substance use: marijuana (any form) service: Yes Exam Narrative: Exam Narrative: Constitutional: Well-developed, well-nourished, no acute distress. HEENT: Normocephalic, atraumatic. Neck: Normal range of motion. Nontender. Supple. Heart: Regular. No murmurs. Normal rate. Intact distal pulses. Lungs: Clear to auscultation. No chest discomfort. No wheezes, rhonchi, or rales. Abdomen: Normal bowel sounds. Nontender. No rebound tenderness. Genitalia: Deferred. Back: No midline tenderness. Normal range of motion. Extremities: Normal range of motion. No injury. Skin: Some erythematous lesions in the patient's scalp with no current active drainage. Neurologic: No altered sensation. No weakness. Alert and oriented. Psychiatric: No suicidality. No anxiety or depression. No insomnia. Nursing notes and vitals signs are reviewed. Const: Vital Signs, click to edit/add: Vital Signs - 24 hr 11/12/23 11:50 Temperature 97.9 F Pulse Rate [Pulse Oximeter] 74 Respiratory Rate 16 Blood Pressure [Ri ght Upper Arm] 116/77 Pulse Oximetry 97 Oxygen Delivery Me thod Room Air Course Vital Signs Vital signs: Initial Vital Signs Temperature 97.9 F 11/12/23 11:50 Temperature Source Temporal Artery Scan 11/12/23 11:50 Pulse Rate 74 11/12/23 11:50 Respiratory Rate 16 11/12/23 11:50 Blood Pressure 116/77 11/12/23 11:50 Blood Pressure Mean 90 11/12/23 11:50 Blood Pressure Position High-Fowlers 11/12/23 11:50 Pulse Oximetry 97 11/12/23 11:50 Oxygen Delivery Method Room Air 11/12/23 11:50 Vital Signs Temperature 97.9 F 11/12/23 11:50 Pulse Rate 74 11/12/23 11:50 Respiratory Rate 16 11/12/23 11:50 Blood Pressure 116/77 11/12/23 11:50 Pulse Oximetry 97 11/12/23 11:50 Oxygen Delivery Method Room Air 11/12/23 11:50 Temperature 97.9 F 11/12/23 11:50 Pulse Rate 74 11/12/23 11:50 Respiratory Rate 16 11/12/23 11:50 Blood Pressure 116/77 11/12/23 11:50 Pulse Oximetry 97 11/12/23 11:50 Oxygen Delivery Method Room Air 11/12/23 11:50 Medical Decision Making MDM Narrative Medical decision making narrative: This patient has a recurrent problem with her scalp and has seen a design consultant who recommended prophylactic treatment with antibiotic. She is not taking any such medicine at this time. She also complains of persistent productive cough after having a pneumonia. Her vital signs are normal and her lung sound clear bilaterally. I did discuss repeating an x-ray of the chest to evaluate her previous diagnosis of pneumonia but indicated reassurance with her lung sounds and vital signs. If there is a persistent lower respiratory infection the antibiotic treating her scalp would likely attend to that so the patient declined any studies at this time. I did advise her to follow-up with a primary physician to manage ongoing treatment of her recurrent scalp condition. Today she did receive a prescription for Augmentin and Medrol Dosepak. Discharge Plan Discharge Clinical Impression: Abscess of skin or subcutaneous tissue Patient Disposition: Home, Self-Care Condition: Stable Additional Instructions: Take medication as prescribed. Follow up with primary physician for ongoing management. Return if worsening. Prescriptions: New methylprednisolone [Medrol (Murray)] 4 mg tablets,dose pack See Rx Instructions .ROUTE .COMPLEX Qty: 21 0RF Rx Instructions: orally per package directions amoxicillin-pot clavulanate 875-125 mg tablet 1 tab PO BID Qty: 20 1RF No Action cholecalciferol (vitamin D3) 50 mcg (2,000 unit) tablet 2,000 unit PO DAILY fluticasone propion-salmeterol 230-21 mcg/actuation HFA aerosol inhaler 1 inh inhalation BID fluoxetine 20 mg capsule 40 mg PO DAILY lysine 500 mg tablet 500 mg PO Q12H epinephrine 0.3 mg/0.3 mL auto-injector 0.3 mg IM .As Needed PRN montelukast 10 mg tablet 10 mg PO .Bedtime omeprazole 20 mg capsule,delayed release(DR/EC) 20 mg PO BID divalproex 125 mg tablet,delayed release (DR/EC) 500 mg PO QHS levothyroxine 125 mcg tablet 125 mcg PO DAILY tizanidine 2 mg capsule 2 mg PO Q8H PRN gabapentin 300 mg capsule 300 mg PO Q8H buspirone 5 mg tablet 30 mg PO BID Lactobacillus acidophilus Capsule 10 mg PO QDAY melatonin 3 mg capsule 6 mg PO .Bedtime as needed PRN albuterol sulfate 90 mcg/actuation HFA aerosol inhaler 2 inh inhalation Q4H PRN ipratropium-albuterol 0.5 mg-3 mg(2.5 mg base)/3 mL solution for nebulization 3 ml inhalation Q6-8H PRN clonidine HCl 0.1 mg tablet 0.1 mg PO Q12H fexofenadine [Allergy Relief (fexofenadine)] 180 mg tablet 180 mg PO DAILY benzoyl peroxide 10 % cleanser 1 applic topical DAILY mometasone 50 mcg/actuation spray,non-aerosol 2 spray intranasal Q12H Rx Instructions: administer into each nostril hydroxyzine HCl 25 mg tablet 25 mg PO Q6H PRN ketoconazole 2 % shampoo topical DAILY tizanidine 2 mg tablet 2 mg PO 3XD ondansetron HCl 8 mg tablet PO buspirone 30 mg tablet 30 mg PO BID methylprednisolone 4 mg tablet 4 - 12 mg PO DAILY Qty: 11 0RF Rx Instructions: 3 tablets by mouth once daily for 2 days, then 2 tablets by mouth daily for 2 days. Then 1 tablet on Monday. fluoxetine 40 mg capsule PO primidone 50 mg tablet 50 mg PO QPM sulfamethoxazole-trimethoprim 800-160 mg tablet 1 tab PO BID fluticasone propion-salmeterol [Wixela Inhub] 100-50 mcg/dose blister with device INHALATION Patient Comments: [NO ORIGINAL SIG] clobetasol 0.05 % solution 1 applic topical BID clindamycin phosphate 1 % solution topical Follow Up/Referrals: Leyla Sands DO [Primary Care Provider] - [facility]
--- OUTSIDE RECORDS SUMMARY | 2023-11-12 12:38 | XMS_ITS | Encounter Summary ---
Author Name [facility] [place] [facility] [place] Address [address] [place] [address] Care Team Providers Care Staff Attorney Name Role Phone JORGITO SHAH Primary Care Provider Unavail able Insurance Providers: All historical and current Section [...] Patient's Relationship to Policy [facility] ([facility]) MEDICARE ADVANTAGE [facility] ([facility]) Jan 12, 2016 [id number] [phone] SONIA VENCES PATIENT [employer] [facility] ([facility]) MEDICARE [facility] ([facility]) Mar 13, 2020 [id number] SONIA VENCES PATIENT [employer] [facility] ([facility]) MEDICARE ADVANTAGE [employer] ([facility]) Mar 13, 2020 [id number] SONIA VENCES PATIENT [employer] [facility] ([facility]) MEDICARE ADVANTAGE [employer] ([facility]) Mar 13, 2020 [id number] [phone] SONIA VENCES PATIENT [employer] [facility] ([facility]) MEDICARE ADVANTAGE [employer] ([facility]) Mar 13, 2020 [id number] RUSONIA MANUEL PATIENT [facility] ([facility]) MEDICARE ADVANTAGE MEDIC [facility] Mar 13, 2019 [id number] SONIA VENCES PATIENT Selected Encounter This [...] [facility] the [facility] [place] [facility] This section includes future appointments and [...] 27, 2023 09:16 PM AMBULATORY - NONE [facility] Mar 21, 2023 05:01 PM [facility] Apr 03, 2023 02:14 PM AMBULATORY - MEDICINE ELISEDai [facility] May 30, 2023 11:00 AM AMBULATORY - SURGERY [facility] Jul 07, 2023 08:46 AM AMBULATORY - NONE [facility] Social History: Smoking Status (Most [...] AM FORMER TOBACCO USE >1Y <7Y [facility] Tobacco Use History This section includes a history of the smoking, or tobacco-related health factors, that were collected on or before the date of the Encounter. The data comes from the [place] facility where the Encounter took place. Date/Time Smoking Status/Tobacco Use Comment F acility July 30, 2014 09:31 AM FORMER TOBACCO USE <1Y [facility] Encounter Notes: All associated encounter notes This section contains the clinical notes associated to the Encounter. Date/Time Encounter Note(s) Provider Source Jan 19, 2023 09:21 AM NO SHOW NOTE: LOCAL TITLE: NO SHOW NOTE STANDARD TITLE: NO SHOW NOTE DATE OF NOTE: JAN 19, 2023@09:21 ENTRY DATE: JAN 19, 2023@09:21:23 AUTHOR: DUYEN JORDAN EXP COSIGNER: URGENCY: STATUS: COMPLETED NO SHOW NOTE Has ADDENDA Patient did not appear for scheduled appointment. Risk Factors: hx PA, hx abuse, unkown to loan underwriter per chart last safety plan August 14 2022, last contact with suicide prevention September 06 with two more outreach attemtps with messages not returned Protective Factors: unkown to loan underwriter Clinician Judgment of Risk: no SI mentioned in recent notes from suicide prevention Plan Based on Clinician Judgment of Risk: outreach for no show intake per policy /jose armando/ DUYEN JORDAN RN REGISTERED NURSE Signed: 01/19/2023 09:23 Receipt Acknowledged By: 01/19/2023 09:58 /jose armando/ ZULEYKA WILSON M.D. STAFF PSYCHIATRIST 01/23/2023 09:05 /jose armando/ DENNY GUIDRY Lead [facility] 01/19/2023 ADDENDUM STATUS: COMPLETED Outreach call #1 phone not accepting calls- unable to leave message /jose armando/ DUYEN JORDAN RN REGISTERED NURSE Signed: 01/19/2023 09:[address] [facility]
--- OUTSIDE RECORDS SUMMARY | 2023-11-12 12:38 | XMS_ITS | Continuity of Care Document ---
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 QUADRIVALENT 2017 158 complet ed [facility] INFLUENZA, INJECTABLE, QUADRIVALENT, PRESERVATIVE FREE 2017 150 complet ed [facility] INFLUENZA, INJECTABLE, QUADRIVALENT, PRESERVATIVE FREE 2016 150 complet ed [facility] PNEUMOCOCCAL CONJUGATE PCV [address] [facility] INFLUENZA, INJECTABLE, QUADRIVALENT, PRESERVATIVE FREE 2015 150 complet ed [facility] INFLUENZA, SEASONAL, INJECTABLE 2014 141 complet ed [facility] INFLUENZA, INJECTABLE, QUADRIVALENT, PRESERVATIVE FREE 2014 150 complet ed [facility] INFLUENZA, SEASONAL, INJECTABLE 2014 141 complet ed [facility] INFLUENZA, INJECTABLE, QUADRIVALENT, PRESERVATIVE FREE 2013 150 complet ed [facility] INFLUENZA, SEASONAL, INJECTABLE 2012 141 complet ed [facility] TDAP 2012 115 complet ed [facility] INFLUENZA, SEASONAL, INJECTABLE 2011 141 complet ed [facility] HEP B, ADULT 2011 43 complet ed [facility] INFLUENZA, SEASONAL, INJECTABLE [address] [facility] PNEUMOCOCCAL POLYSACCHARID E PPV23 [address] [facility] INFLUENZA, SEASONAL, INJECTABLE, PRESERVATIVE FREE [address] [facility] INFLUENZA, SEASONAL, INJECTABLE, PRESERVATIVE FREE [address] [facility] NOVEL INFLUENZA-H1N 1-09, ALL FORMULATIONS 2008 128 complet ed [facility] INFLUENZA, SEASONAL, INJECTABLE [address] [facility] HEP B, ADULT [address] [facility] MMR [address] [facility] HEP B, ADULT [address] [facility] TDAP [address] [facility] INFLUENZA, SEASONAL, INJECTABLE, PRESERVATIVE FREE [address] [facility] TD (ADULT), 2 LF TETANUS TOXOID, PRESERVATIVE FREE, ADSORBED [address] [facility] TD (ADULT), 2 LF TETANUS TOXOID, PRESERVATIVE FREE, ADSORBED [address] [facility] TD (ADULT), 2 LF TETANUS TOXOID, PRESERVATIVE FREE, ADSORBED [address] [facility] INFLUENZA, UNSPECIFIED FORMULATION [address] [facility] Results Combined list of recent chemistry, hematology and other laboratory results from Department of Defense and Veterans Affairs, ranging from 15 months to all on record, depending upon the facility. Order Name Results Value Reference Range Date Interpretation Specimen Comments Source TSH W/REFLEX TO FREE T4 THYROTROPI N [UNITS/VOL UME] IN SERUM OR PLASMA 0.04 u[IU]/mL 0.35 - 4.94 08/22 L Specimen Type: PLASMA No comment entered. Ordering Provider: Nicolle SHAH Report Released Date/Time: Sep 27, 2022 02:41 PM Reporting Lab: [facility] [id number] Performing Lab: [facility] [address] [facility] TSH W/REFLEX TO FREE T4 THYROXINE (T4) FREE [MASS/VOLU ME] IN SERUM OR PLASMA 1.32 ng/dL 0.70 - 1.48 08/22 Specimen Type: PLASMA No comment entered. Ordering Provider: Nicolle SHAH Report Released Date/Time: Sep 27, 2022 02:41 PM Reporting Lab: [facility] [address] Performing Lab: [facility] [address] [facility] C.TRACHO MATIS/N. GONORRHE A DNA CHLAMYDIA TRACHOMATI S DNA [PRESENCE] IN URINE BY MICA WITH PROBE DETECTION NOT DETECTED 09/27 Specimen Type: URINE No comment entered. Ordering Provider: Nicolle SHAH Report Released Date/Time: Sep 27, 2022 03:02 PM Reporting Lab: [facility] [address] Performing Lab: [facility] [address] [facility] IS [facility] C.TRACHO MATIS/N. GONORRHE A DNA NEISSERIA GONORRHOEA E DNA [PRESENCE] IN URINE BY MICA WITH PROBE DETECTION NOT DETECTED 09/27 Specimen Type: URINE No comment entered. Ordering Provider: Nicolle SHAH Report Released Date/Time: Sep 27, 2022 03:02 PM Reporting Lab: [facility] [address] Performing Lab: [facility] [address] [facility] C.TRACHO MATIS/N. GONORRHE A DNA INTERPRETA TION AND REVIEW OF LABORATORY RESULTS Infectio us agent DNA is not detected by this assay 09/27 Specimen Type: URINE No comment entered. Ordering Provider: Nicolle SHAH Report Released Date/Time: Sep 27, 2022 03:02 PM Reporting Lab: [facility] [address] Performing Lab: [facility] [address] [facility] C.TRACHO MATIS/N. GONORROE AE,RECTA L CHLAMYDIA TRACHOMATI S RRNA [PRESENCE] IN ANAL BY MICA WITH PROBE DETECTION TNP 09/27 Specimen Type: RECTAL Comment: Specimen too short for repeat testing [place]ancellatio [place]: [place] [address]03-22,TTP Test not performed. Initial testing necessitate d a repeat, but there was insufficien t sample to perform repeat. Test Performed by [employer] [place], [facility], [address] [place] [address] Perri Valdovinos M.D., Ph.D., Director of Laboratorie s , CLIA [id number] Ordering Provider: Nicolle SHAH Report Released Date/Time: Sep 27, 2022 03:02 PM Reporting Lab: [facility] [phone] Performing Lab: [address] [place] [facility] C.TRACHO MATIS/N. GONORROE AE,RECTA L NEISSERIA GONORRHOEA E RRNA [PRESENCE] IN SPECIMEN BY PROBE TNP 09/27 Specimen Type: RECTAL Comment: Specimen too short for repeat testing [place]ancellatio [place]: [place] [address]-03-22,TTP Test not performed. Initial testing necessitate d a repeat, but there was insufficien t sample to perform repeat. Test Performed by [employer], [facility] [place], [address] [place] [address] ePrri Valdovinos M.D., Ph.D., Director of Laboratorie s , CLIA [id number] Ordering Provider: Nicolle SHAH Report Released Date/Time: Sep 27, 2022 03:02 PM Reporting Lab: [facility] [address] Performing Lab: [address] [place] [facility] C.TRACHO MATIS/N. GONORROE AE,THROA T CHLAMYDIA TRACHOMATI S RRNA [PRESENCE] IN SPECIMEN BY MICA WITH PROBE DETECTION Not Detected 09/27 Specimen Type: THROAT Comment: Methodology : Transcripti on Mediated Amplificati on(TMA) to detect RNA. The analytical performance characteris tics of this assay have been determined by [facility] [place], [place]. The modificatio ns have not been cleared or approved by the FDA. This assay has been validated pursuant to the CLIA regulations and is used for clinical purposes. Test Performed by [facility], [facility] [place], [address] [place] [address] Perri Valdovinos M.D., Ph.D., Director of Laboratorie s , CLIA [id number] Ordering Provider: Nicolle SHAH Report Released Date/Time: Sep 27, 2022 03:02 PM Reporting Lab: [facility] [address] Performing Lab: [address] [facility] C.TRACHO MATIS/N. GONORROE AE,THROA T NEISSERIA GONORRHOEA E RRNA [PRESENCE] IN SPECIMEN BY PROBE Not Detected 09/27 Specimen Type: THROAT Comment: Methodology : Transcripti on Mediated Amplificati on(TMA) to detect RNA. The analytical performance characteris tics of this assay have been determined by [employer] [place], [place]. The modificatio ns have not been cleared or approved by the FDA. This assay has been validated pursuant to the CLIA regulations and is used for clinical purposes. Test Performed by [facility], [facility] [place], [address] [place] [address] Perri Valdovinos M.D., Ph.D., Director of Laboratorie s , CLIA [id number] Ordering Provider: Nicolle SHAH Report Released Date/Time: Sep 27, 2022 03:02 PM Reporting Lab: [facility] [address] Performing Lab: [address] [facility] HIV AG/AB SCREEN HIV 1+2 AB+HIV1 P24 AG [PRESENCE] IN SERUM OR PLASMA BY IMMUNOASSA Y NEGATIVE 09/27 Specimen Type: SERUM No comment entered. Ordering Provider: Nicolle SHAH Report Released Date/Time: Sep 27, 2022 03:02 PM Reporting Lab: [facility] [address] Performing Lab: [facility] [address] [facility] ANTI-HEP C(EIA) HEPATITIS C VIRUS AB [PRESENCE] IN SERUM NEGATIVE 09/27 Specimen Type: SERUM No comment entered. Ordering Provider: Nicolle SHAH Report Released Date/Time: Sep 27, 2022 03:02 PM Reporting Lab: [facility] [phone] Performing Lab: [facility] [address] [facility] SYPHILIS ANTIBODY SYPHILIS SCREEN TEST STATUS CPHS NEGATIVE 09/27 Specimen Type: SERUM No comment entered. Ordering Provider: Nicolle SHAH Report Released Date/Time: Sep 27, 2022 03:02 PM Reporting Lab: [facility] [address] Performing Lab: [facility] [address] [facility] POC CREATINI NE CREATININE [MASS/VOLU ME] IN BLOOD 0.7 mg/dL 0.6 - 1.3 08/14 Specimen Type: BLOOD No comment entered. Ordering Provider: [facility] PH Report Released Date/Time: Aug 14, 2022 06:36 PM Reporting Lab: [facility] [address] Performing Lab: [facility] [address] [facility] EXTRA GOLD GEL TUBE EXTRA GOLD GEL TUBE RECEIVED 08/14 Specimen Type: SERUM No comment entered. Ordering Provider: [facility] Report Released Date/Time: Aug 14, 2022 06:12 PM Reporting Lab: [facility] [address] Performing Lab: [facility] [address] [facility] LIPASE LIPASE [ENZYMATIC ACTIVITY/V OLUME] IN SERUM OR PLASMA 32 U/L 08/14 Specimen Type: PLASMA No comment entered. Ordering Provider: [facility] Report Released Date/Time: Aug 14, 2022 06:01 PM Reporting Lab: [facility] [address] Performing Lab: [facility] [address] [facility] Vital Signs Combined list of inpatient [...] ADM Date DC Date Status Disposition Source [facility] Yovanny Rodas, [place](IEP Hearing Conservat ion Exam) OUTPATIENT [id number] [address] ERICA Ozzy 01/09 Released w/o Limitations [place] Exam) [facility] Yovanny Rodas [place](C-TMC Er Module) OUTPATIENT [id number] back pain LISA DARLING 01/09 Released w/o Limitations [facility] [place] [facility] Yovanny Rodas, [place](IEP Optometry ) OUTPATIENT [id number] KRYSTIAN MONTGOMERY 01/12 Released w/o Limitations [facility] [place] [facility] Yovanny Rodas, [place](C-TMC Er Module) OUTPATIENT [id number] Upper/m iddle back pain. DUYEN GARZA 01/16 Released with Work/Duty Limitations [facility] [place] [facility] [place] OUTPATIENT [id number] NAE Garcia 02/01 Released with Work/Duty Limitations [facility] [place] OUTPATIENT [id number] L ankle pain. PERRI FAITH 02/08 Released with Work/Duty Limitations [facility] [place] [facility]) OUTPATIENT [id number] L ankle pain. HENNA CAVAZOS 02/24 Released with Work/Duty Limitations [facility] [place] [facility] [place] [facility]) [facility] [place] OUTPATIENT [id number] L knee pain. PERRI FAITH 03/21 Released with Work/Duty Limitations [facility] [place] [place] [facility] [place]) OUTPATIENT [id number] knee pain GILA COSME 03/30 Released with Work/Duty Limitations [facility] [place] [facility] [place] [facility] [place] [place]) OUTPATIENT [id number] knee pain DUYEN SCHUMACHER 04/10 Released w/o Limitations [facility] [place] [place] [facility] [place] [facility] Remote) OUTPATIENT [id number] KALYAN SHOOK 04/11 Released with Work/Duty Limitations [facility] [place] [facility] Remote) [facility] [place] [facility] Remote) OUTPATIENT [id number] NO SHOW CHETAN STEVENS 04/13 Released w/o Limitations [facility] [place] [facility] Remote) [facility] [place] [facility] [place] [facility] Remote) OUTPATIENT [id number] NO SHOW CHETAN STEVENS 04/14 Released w/o Limitations [facility] [place] [facility] Remote) [facility] Yovanny [facility] [place] [facility] Remote) OUTPATIENT [id number] CHETAN STEVENS. 04/17 Released with Work/Duty Limitations [facility] [place] [place] [facility] Remote) [place] [id number] exam LINDA TROY Rk 04/20 Released w/o Limitations [facility] [place] [facility]anny Rodas [facility] [place] [facility] Remote) OUTPATIENT [id number] NO SHOW REHABPh ysical Therapy Exercis e Session DAKOTAH SNEED 04/20 Released w/o Limitations [facility] [place] [facility] Remote) [facility] Yovanny Rodas [facility] [place] [facility] Remote) OUTPATIENT [id number] CHETAN STEVENS. 04/21 Released with Work/Duty Limitations [place] [facility] Remote) General Yovanny Rodas [facility] [place] [facility] Remote) OUTPATIENT [id number] KALYAN SHOOK 04/24 Released with Work/Duty Limitations [place] [facility] Remote) General Yovanny Rodas [facility] [place] [facility] Remote) OUTPATIENT [id number] KALYAN SHOOK 04/25 Released with Work/Duty Limitations [place] [facility] Remote) [place] [facility] Remote) OUTPATIENT [id number] NO SHOW REHAB Physica l Therapy Exercis e Session DAKOTAH SNEED 04/26 Released w/o Limitations [facility] [place] [place] [facility] Remote) General Yovanny [place] [facility] [place] [facility] Remote) OUTPATIENT [id number] SUKUMAR ALMODOVAR 04/27 Released with Work/Duty Limitations [place] [facility] Remote) [place] [facility] Remote) OUTPATIENT [id number] Physica l Therapy Exercis e DAKOTAH Mark 04/28 Released with Work/Duty Limitations [place] [facility] Remote) [place]C-[place]) OUTPATIENT [id number] NAE Dalton 05/03 Released w/o Limitations [facility] [place]C-[place] C [place]) [facility] [place] [facility] Remote) OUTPATIENT [id number] CHETAN STEVENS 05/03 Released with Work/Duty Limitations [place] [facility] Remote) [place] [facility] Remote) OUTPATIENT [id number] CHETAN STEVENS 05/04 Released with Work/Duty Limitations [place] [facility] Remote) [place] [facility] Remote) OUTPATIENT [id number] CHETAN STEVENS 05/05 Released with Work/Duty Limitations [facility] [place] [facility] Remote) [place] [facility] Remote) OUTPATIENT [id number] NILSA LI 05/09 Released with Work/Duty Limitations [facility] [place] [facility] Remote) [facility] [place]) OUTPATIENT [id number] NAE Gracia 05/15 Sick at Home/Quarter s [facility] [place] [facility] [place]Physic [place] Therapy [place] Remote) OUTPATIENT [id number] KALYAN SHOOK 05/30 Released with Work/Duty Limitations [place]Phys [place]Physic [place] OUTPATIENT [id number] Physica l Therapy Exercis e Session DAKOTAH SNEED 06/01 Released with Work/Duty Limitations [place]Phys [place] Remote) [place] [facility] Remote) OUTPATIENT [id number] Physica l Therapy Exercis e Session DAKOTAH SNEED 06/02 Released with Work/Duty Limitations [place]Phys [place] Remote) [place] [facility] Remote) OUTPATIENT [id number] CHETAN STEVENS 06/05 Released with Work/Duty Limitations [place] [facility] Remote) [place] [facility] Remote) OUTPATIENT [id number] CHETAN STEVENS 06/07 Released with Work/Duty Limitations [facility] [place] [facility] Remote) General Yovanny Rodas [facility] [place] [facility] Remote) OUTPATIENT [id number] Physica l Therapy Exercis e Session NILSA LI 06/09 Released with Work/Duty Limitations [facility] [place]Phys [place] Remote) [place] [facility] Remote) OUTPATIENT [id number] CHETAN STEVENS 06/12 Released with Work/Duty Limitations [facility] Yovanny Rodas [facility] [place]Phys [place]) [facility] Yovanny Rodas [facility] [place]Physic [place] Remote) OUTPATIENT [id number] NO SHOW FOLLOW UP WITH DAKOTAH DYKES 06/13 Released w/o Limitations [facility] [place] [facility] Remote) [facility] [place] [facility] Remote) OUTPATIENT [id number] NILSA LI 06/14 Released w/o Limitations [facility] [place] [facility] Remote) [facility] [place]) OUTPATIENT [id number] med fill and PERRI Lu 06/21 Released w/o Limitations [facility] [place] [facility] [place]) OUTPATIENT [id number] NAE Garcia 06/29 Released with Work/Duty Limitations [facility] [place] [facility] [place]) OUTPATIENT [id number] l-knee pain HEATHER NETTLES 07/06 Released w/o Limitations [facility] [place] [facility] [place] [place] [facility] [place] OUTPATIENT [id number] lt shoulde r pain/me d refill for migrain e PERRI FAITH 07/11 Released with Work/Duty Limitations [facility] [place] [facility] [place] [facility] Remote) OUTPATIENT [id number] NILSA LI 07/12 Released w/o Limitations [facility] [place] [facility] Remote) [facility] [place]) OUTPATIENT [id number] pink eye SAMPE, BANDAR W 07/24 Released w/o Limitations [facility] [place] [facility] [place]C-[place]) OUTPATIENT [id number] URI; FEVER BLISTER S; RASH. LISA RENEE 07/28 Released w/o Limitations [facility] Yovanny Rodas [facility] BERNA [place](C-TM C Er Module) [facility] Yovanny Rodas [facility] [place]Optome [place]) OUTPATIENT [id number] RAVEN DE LA CRUZ 08/03 Released w/o Limitations [facility] Yovanny Rodas [facility] [place]) [facility] Yovanny Rodas [facility] [place] Physical Exam) OUTPATIENT [id number] physica l GILA COSME 08/03 Released w/o Limitations [facility] Yovanny Rodas [facility] [place] Physica l Exam) [facility] Yovanny Rodas [facility] [place]C-TMC Er Module[place] OUTPATIENT [id number] sore throat and cough JONNIE HANNAH 08/05 Released w/o Limitations [facility] Yovanny Rodas [facility] [place]) [facility] Yovanny Rodas [facility] Julian Rodas ME(C-TMC Er Module) OUTPATIENT [id number] SEVERE HEADACH E; FEVER. LISA RENEE 08/21 Released w/o Limitations [facility] Yovanny Rodas [facility] Julian Rodas ME(C-TM C Er Module) [facility] Outpatient Encounter [id number] 04/29 [facility] [place] [facility] Outpatient Encounter [id number] 04/29 [facility] [place] [facility] Outpatient Encounter [id number] NALLELY MARTIN SA 05/23 [facility] [place] [facility] Outpatient Encounter [id number] EDGAR GREY 05/30 [facility] EMERGENCY DEPT VISIT LOW [facility] [id number] Diagnos is: ICD-10- CM L03.90 Celluli tis, unspeci fied
JAYNE SENIOR SWEETIE M 06/13 [place] [facility] [place] [facility] Outpatient Encounter [id number] 06/14 [place] [facility] [place] [facility] Outpatient Encounter [id number] 06/14 [place] [facility] [place] [facility] Outpatient Encounter [id number] 06/16 [place] [facility] [place] [facility] Outpatient Encounter [id number] 06/21 [place] [facility] Outpatient Encounter [id number] EDGAR GREY 06/21 [facility] Outpatient Encounter [id number] VIANEY PETERS 06/22 [facility] Outpatient Encounter [id number] 06/28 [facility] ALEXANDR URIOSTEGUI [facility] OFFICE O/P EST HI 40-54 MIN [id number] Diagnos is: ICD-10- CM F25.9 Schizoa ffectiv e disorde r, unspeci fied
GRANDIA,CO NNIE M 06/28 [facility] Outpatient Encounter [id number] Diagnos is: ICD-10- CM F60.3 Borderl ine persona lity disorde r
BRYON GRAY N L 07/12 [facility] Outpatient Encounter [id number] TESSA STOKES ONMARIO A 07/22 [facility] Outpatient Encounter [id number] 07/22 [facility] OFFICE O/P EST MOD 30-39 MIN [id number] Diagnos is: ICD-10- CM L98.8 Oth disrd of the skin and subcuta neous tissue< br/> ANNA KLEIN S 08/02 [facility] Outpatient Encounter [id number] 08/04 [facility] OFFICE O/P EST HI 40-54 MIN [id number] Diagnos is: ICD-10- CM F42.4 Excoria tion (skin-p icking) disorde r
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
Divina LÓPEZ 08/12 [facility] OFFICE O/P EST LOW 20-29 MIN [id number] Diagnos is: ICD-10- CM F60.3 Borderl ine persona lity disorde r
Rhett THORNTON 08/12 [facility] EMERGENCY DEPT VISIT [place] MDM [id number] Diagnos is: ICD-10- CM J18.9 Pneumon ia, unspeci fied organis m
CONRADO GRECO J 08/14 [place] [facility] [place] [facility] OFF/OP CONSLTJ NEW/EST HI 55 [id number] Diagnos is: ICD-10- CM F60.3 Borderl ine persona lity disorde r
JOHNNIE DYER 08/14 [place] [facility] [place] [facility] Outpatient Encounter [id number] INES HANNAH 08/15 [place] [facility] [place] [facility] Outpatient Encounter [id number] 08/15 [place] [facility] HC PRO PHONE CALL 11-20 MIN [id number] Diagnos is: ICD-10- CM F41.9 Anxiety disorde r, unspeci fied
LOUIS HERNANDEZ 08/16 [place] [facility] Outpatient Encounter [id number] 08/18 [place] [facility] Outpatient Encounter [id number] BRITNEYEDUARDO 08/25 [facility] [place] [facility] Outpatient Encounter [id number] LOUIS HERNANDEZ 08/30 [place] [facility] [place] [facility] Outpatient Encounter [id number] 08/31 [place] [facility] [place] [facility] HC PRO PHONE CALL 11-20 MIN [id number] Diagnos is: ICD-10- CM F41.9 Anxiety disorde r, unspeci fied
LOUIS HERNANDEZ 09/06 [place] [facility] EMERGENCY DEPT VISIT LOW MDM [id number] Diagnos is: ICD-10- CM L03.90 Celluli tis, unspeci fied
RENA DALY 09/06 [place] [facility] [place] [facility] Outpatient Encounter [id number] 09/06 [place] [facility] [place] [facility] Outpatient Encounter [id number] EDGAR GREY 09/12 [place] [facility] [place] [facility] Outpatient Encounter [id number] INES HANNAH 09/14 [place] [facility] [place] [facility] Outpatient Encounter [id number] LOUIS HERNANDEZ 09/20 [facility] OFFICE O/P NEW MOD 45-59 MIN [id number] Diagnos is: ICD-10- CM F41.9 Anxiety disorde r, unspeci fied
JORGITO SHAH 09/27 [facility] Outpatient Encounter [id number] 09/28 [facility] EMERGENCY DEPT VISIT LOW MDM [id number] Diagnos is: ICD-10- CM L03.90 Celluli tis, unspeci fied
RENA DALY 10/04 [facility] [place] [facility] Outpatient Encounter [id number] EDGAR GREY 10/31 [place] [facility] [place] [facility] Outpatient Encounter [id number] EDGAR GREY 11/01 [place] [facility] [place] [facility] Outpatient Encounter [id number] 11/09 [place] [facility] [place] [facility] Outpatient Encounter [id number] EDGAR GREY 11/28 [facility] [place] [facility] Outpatient Encounter [id number] EDGAR GREY 12/05 [facility] [place] [facility] Outpatient Encounter [id number] EDGAR GREY 12/16 [place] [facility] [place] [facility] Outpatient Encounter [id number] 01/19 [place] [facility] [place] [facility] Outpatient Encounter [id number] Luis Alberto COOK 02/27 [facility] [place] [facility] Outpatient Encounter [id number] Luis Alberto COOK 03/21 [facility] [place] [facility] Outpatient Encounter [id number] IBIS MARTIN 04/03 [facility] [place] [facility] EMERGENCY DEPT VISIT LOW MDM [id number] Diagnos is: ICD-10- CM R21 Rash and other nonspec ific skin eruptio n
DEONNA ROLLINS 04/03 [facility] [place] [facility] Outpatient Encounter [id number] 04/10 [facility] [place] [facility] Outpatient Encounter [id number] MATHIEU BAINS 04/10 [facility] [place] [facility] Outpatient Encounter [id number] SUZI BETHEA 05/29 [facility] [place] [facility] Outpatient Encounter [id number] Luis Alberto COOK 07/06 [facility] [place] [facility] Outpatient Encounter [id number] 08/20 [facility] Procedures Combined list of: 1) Procedures from Department of Veterans Affairs facilities going back up to thelast 18 months, not all [place] non-surgical procedures are included; 2) All procedures from the Department of Defense facilities. Procedure Procedure Type Code Date Perfomer Comments Sour e SELF-CARE/HOME MANAGMENT TRAIN (EG,ACT OF DAILY LIVING (ADL) &COMPENSAT TRAIN,MEAL PREPARATION,SAFETY PROCS,AND INSTRUCT IN USE OF ASST TECHNOLOGY DEV/ADPT EQUIP) DIR ONE-ON-ONE CONT,EA 15 MINUTES 07/25/19 07 [facility] INDIVIDUAL PSYCHOTHERAPY, INSIGHT ORIENTED, BEHAVIOR MODIFYING AND/OR SUPPORTIVE, IN AN OFFICE OR OUTPATIENT FACILITY, APPROXIMATELY 20 TO 30 MINUTES [id number] W THE PATIENT; W MED EVAL & MGT SER 07/22/19 07 [facility] THERAPEUTIC PROCEDURE, 1 OR MORE AREAS, EACH 15 MINUTES; THERAPEUTIC EXERCISES TO DEVELOP STRENGTH AND ENDURANCE, RANGE OF MOTION AND FLEXIBILITY 07/13/19 07 [facility] SELF-CARE/HOME MANAGMENT TRAIN (EG,ACT OF DAILY LIVING (ADL) &COMPENSAT TRAIN,MEAL PREPARATION,SAFETY PROCS,AND INSTRUCT IN USE OF ASST TECHNOLOGY DEV/ADPT EQUIP) DIR ONE-ON-ONE CONT,EA 15 MINUTES 07/12/19 07 [facility] SELF-CARE/HOME MANAGMENT TRAIN (EG,ACT OF DAILY LIVING (ADL) &COMPENSAT TRAIN,MEAL PREPARATION,SAFETY PROCS,AND INSTRUCT IN USE OF ASST TECHNOLOGY DEV/ADPT EQUIP) DIR ONE-ON-ONE CONT,EA 15 MINUTES 07/07/19 07 [facility] INDIVIDUAL PSYCHOTHERAPY, INSIGHT ORIENTED, BEHAVIOR MODIFYING AND/OR SUPPORTIVE, IN AN OFFICE OR OUTPATIENT FACILITY, APPROXIMATELY 20 TO 30 MINUTES [id number] W THE PATIENT; W MED EVAL & MGT SER 06/29/19 07 [facility] THERAPEUTIC, PROPHYLACTIC OR DIAGNOSTIC INJECTION (SPECIFY SUBSTANCE OR DRUG); SUBCUTANEOUS OR INTRAMUSCULAR 06/22/19 07 [facility] INDIVIDUAL PSYCHOTHERAPY, INSIGHT ORIENTED, BEHAVIOR MODIFYING AND/OR SUPPORTIVE, IN AN OFFICE OR OUTPATIENT FACILITY, APPROXIMATELY 20 TO 30 MINUTES [id number] W THE PATIENT; W MED EVAL & MGT SER 06/15/19 07 [facility] SELF-CARE/HOME MANAGMENT TRAIN (EG,ACT OF DAILY LIVING (ADL) &COMPENSAT TRAIN,MEAL PREPARATION,SAFETY PROCS,AND INSTRUCT IN USE OF ASST TECHNOLOGY DEV/ADPT EQUIP) DIR ONE-ON-ONE CONT,EA 15 MINUTES 06/15/19 07 [facility] THERAPEUTIC PROCEDURE, 1 OR MORE AREAS, EACH 15 MINUTES; THERAPEUTIC EXERCISES TO DEVELOP STRENGTH AND ENDURANCE, RANGE OF MOTION AND FLEXIBILITY 06/13/19 07 [facility] APPLICATION OF A MODALITY TO 1 OR MORE AREAS; HOT OR COLD PACKS 06/10/19 07 [facility] STRAPPING; KNEE 06/08/19 07 [facility] THERAPEUTIC PROCEDURE, 1 OR MORE AREAS, EACH 15 MINUTES; THERAPEUTIC EXERCISES TO DEVELOP STRENGTH AND ENDURANCE, RANGE OF MOTION AND FLEXIBILITY 06/06/19 07 [facility] APPLICATION OF A MODALITY TO 1 OR MORE AREAS; HOT OR COLD PACKS 06/03/19 07 [facility] APPLICATION OF A MODALITY TO 1 OR MORE AREAS; HOT OR COLD PACKS 06/02/19 07 [facility] INDIVIDUAL PSYCHOTHERAPY, INSIGHT ORIENTED, BEHAVIOR MODIFYING AND/OR SUPPORTIVE, IN AN OFFICE OR OUTPATIENT FACILITY, APPROXIMATELY 20 TO 30 MINUTES [id number] W THE PATIENT; W MED EVAL & MGT SER 06/01/19 07 [facility] SELF-CARE/HOME MANAGMENT TRAIN (EG,ACT OF DAILY LIVING (ADL) &COMPENSAT TRAIN,MEAL PREPARATION,SAFETY PROCS,AND INSTRUCT IN USE OF ASST TECHNOLOGY DEV/ADPT EQUIP) DIR ONE-ON-ONE CONT,EA 15 MINUTES 05/31/19 [facility] INDIVIDUAL PSYCHOTHERAPY, INSIGHT ORIENTED, BEHAVIOR MODIFYING AND/OR SUPPORTIVE, IN AN OFFICE OR OUTPATIENT FACILITY, APPROXIMATELY 20 TO 30 MINUTES [id number] W THE PATIENT; W MED EVAL & MGT SER 05/10/19 07 [facility] SELF-CARE/HOME MANAGMENT TRAIN (EG,ACT OF DAILY LIVING (ADL) &COMPENSAT TRAIN,MEAL PREPARATION,SAFETY PROCS,AND INSTRUCT IN USE OF ASST TECHNOLOGY DEV/ADPT EQUIP) DIR ONE-ON-ONE CONT,EA 15 MINUTES 05/09/19 07 [facility] THERAPEUTIC PROCEDURE, 1 OR MORE AREAS, EACH 15 MINUTES; THERAPEUTIC EXERCISES TO DEVELOP STRENGTH AND ENDURANCE, RANGE OF MOTION AND FLEXIBILITY 05/05/19 07 [facility] THERAPEUTIC PROCEDURE, 1 OR MORE AREAS, EACH 15 MINUTES; THERAPEUTIC EXERCISES TO DEVELOP STRENGTH AND ENDURANCE, RANGE OF MOTION AND FLEXIBILITY 05/04/19 07 [facility] THERAPEUTIC PROCEDURE, 1 OR MORE AREAS, EACH 15 MINUTES; THERAPEUTIC EXERCISES TO DEVELOP STRENGTH AND ENDURANCE, RANGE OF MOTION AND FLEXIBILITY 05/03/19 07 [facility] INDIVIDUAL PSYCHOTHERAPY, INSIGHT ORIENTED, BEHAVIOR MODIFYING AND/OR SUPPORTIVE, IN AN OFFICE OR OUTPATIENT FACILITY, APPROXIMATELY 20 TO 30 MINUTES [id number] W THE PATIENT; W MED EVAL & MGT SER 05/02/19 07 [facility] APPLICATION OF A MODALITY TO 1 OR MORE AREAS; HOT OR COLD PACKS 04/28/19 07 [facility] APPLICATION OF A MODALITY TO 1 OR MORE AREAS; HOT OR COLD PACKS 04/27/19 [facility] THERAPEUTIC PROCEDURE, 1 OR MORE AREAS, EACH 15 MINUTES; THERAPEUTIC EXERCISES TO DEVELOP STRENGTH AND ENDURANCE, RANGE OF MOTION AND FLEXIBILITY 04/25/19 [facility] APPLICATION OF A MODALITY TO 1 OR MORE AREAS; ELECTRICAL STIMULATION (MANUAL), EACH 15 MINUTES 04/24/19 [facility] APPLICATION OF A MODALITY TO 1 OR MORE AREAS; ELECTRICAL STIMULATION (MANUAL), EACH 15 MINUTES 04/21/19 [facility] VISUAL FIELD EXAMINATION, UNI OR BILATERAL, WITH MEDICAL DIAGNOSTIC EVAL; LIMITED EXAM (EG, TANGENT SCREEN, AUTOPLOT, ARC PERIMETER, OR SINGLE STIMULUS LEVEL AUTO TEST, EG OCTOPUS 3 OR 7 EQUIVALENT) 04/20/19 [facility] INDIVIDUAL PSYCHOTHERAPY, INSIGHT ORIENTED, BEHAVIOR MODIFYING AND/OR SUPPORTIVE, IN AN OFFICE OR OUTPATIENT FACILITY, APPROXIMATELY 20 TO 30 MINUTES [id number] W THE PATIENT; W MED EVAL & MGT SER 04/19/19 07 [facility] APPLICATION OF A MODALITY TO 1 OR MORE AREAS; ELECTRICAL STIMULATION (MANUAL), EACH 15 MINUTES 04/17/19 [facility] APPLICATION OF A MODALITY TO 1 OR MORE AREAS; HOT OR COLD PACKS 04/11/19 07 [facility] INDIVIDUAL PSYCHOTHERAPY, INSIGHT ORIENTED, BEHAVIOR MODIFYING AND/OR SUPPORTIVE, IN AN OFFICE OR OUTPATIENT FACILITY, APPROXIMATELY 20 TO 30 MINUTES [id number] W THE PATIENT; W MED EVAL & MGT SER 04/03/19 07 [facility] SELF-CARE/HOME MANAGMENT TRAIN (EG,ACT OF DAILY LIVING (ADL) &COMPENSAT TRAIN,MEAL PREPARATION,SAFETY PROCS,AND INSTRUCT IN USE OF ASST TECHNOLOGY DEV/ADPT EQUIP) DIR ONE-ON-ONE CONT,EA 15 MINUTES 03/30/19 07 [facility] SELF-CARE/HOME MANAGMENT TRAIN (EG,ACT OF DAILY LIVING (ADL) &COMPENSAT TRAIN,MEAL PREPARATION,SAFETY PROCS,AND INSTRUCT IN USE OF ASST TECHNOLOGY DEV/ADPT EQUIP) DIR ONE-ON-ONE CONT,EA 15 MINUTES 03/21/19 [facility] INDIVIDUAL PSYCHOTHERAPY, INSIGHT ORIENTED, BEHAVIOR MODIFYING AND/OR SUPPORTIVE, IN AN OFFICE OR OUTPATIENT FACILITY, APPROXIMATELY 20 TO 30 MINUTES [id number] W THE PATIENT; W MED EVAL & MGT SER 03/17/19 07 [facility] ANKLE FOOT ORTHOSIS, MULTILIGAMENTOUS ANKLE SUPPORT, PREFABRICATED, [id number] 02/25/20 06 [facility] SELF-CARE/HOME MANAGMENT TRAIN (EG,ACT OF DAILY LIVING (ADL) &COMPENSAT TRAIN,MEAL PREPARATION,SAFETY PROCS,AND INSTRUCT IN USE OF ASST TECHNOLOGY DEV/ADPT EQUIP) DIR ONE-ON-ONE CONT,EA 15 MINUTES 02/09/20 06 [facility] PSYCHIATRIC DIAGNOSTIC INTERVIEW EXAMINATION 01/27/20 [facility] PSYCHIATRIC DIAGNOSTIC INTERVIEW EXAMINATION 01/25/20 06 [facility] SELF-CARE/HOME MANAGMENT TRAIN (EG,ACT OF DAILY LIVING (ADL) &COMPENSAT TRAIN,MEAL PREPARATION,SAFETY PROCS,AND INSTRUCT IN USE OF ASST TECHNOLOGY DEV/ADPT EQUIP) DIR ONE-ON-ONE CONT,EA 15 MINUTES 01/17/20 06 [facility] DETERMINATION OF REFRACTIVE STATE 01/13/20 [facility] HEPATITIS A AND HEPATITIS B VACCINE (HEPA-HEPB), ADULT DOSAGE, FOR INTRAMUSCULAR USE 01/12/20 06 [facility] EAR MOLD/INSERT, NOT DISPOSABLE, ANY TYPE 01/10/20 06 [facility] Psychotherapy Individual Approx 30 Min W/ Medical Evaluation & Management Psychotherapy Individual Approx 30 Min W/ Medical Evaluation & Management [id number] 08/01/19 07 NASIM FOSTER [facility] Patient Training And Self-Care Skills Patient Training And Self-Care Skills 43869 07/25/19 07 BANDAR MARTÍNEZ [facility] Psychotherapy Individual Approx 30 Min W/ Medical Evaluation & Management Psychotherapy Individual Approx 30 Min W/ Medical Evaluation & Management 46753 07/25/19 07 VASQUEZ MARCUS [facility] A isted Exercises For ROM Assisted Exercises For ROM 18136 07/13/19 07 NILSA LI [facility] Phys Therapy Education Self Care Training - Per 15 Minutes Phys Therapy Education Self Care Training - Per 15 Minutes 96969 07/13/19 07 NILSA LI [facility] Physical Therapy Service Evaluation Physical Therapy Service Evaluation 96583 07/13/19 07 NILSA LI [facility] Physician Supervised Injection Intramuscular Physician Supervised Injection Intramuscular 38567 07/12/19 07 PERRI FAITH [facility] Patient Training And Self-Care Skills Patient Training And Self-Care Skills 25263 07/12/19 07 PERRI FAITH [facility] Patient Training And Self-Care Skills Patient Training And Self-Care Skills 89064 07/07/19 07 HEATHER NETTLES [facility] Psychotherapy Individual Approx 30 Min W/ Medical Evaluation & Management Psychotherapy Individual Approx 30 Min W/ Medical Evaluation & Management 98683 06/29/19 07 NASIM FOSTER [facility] Physician Supervised Injection Intramuscular Physician Supervised Injection Intramuscular 37662 06/22/19 07 PERRI FAITH Patient Training And Self-Care Skills Patient Training And Self-Care Skills 67438 06/22/19 07 PERRI FAITH [facility] Phys Therapy Education Self Care Training - Per 15 Minutes Phys Therapy Education Self Care Training - Per 15 Minutes 95918 06/15/19 07 NILSA LI [facility] Physical Therapy Service Re-Evaluation Physical Therapy Service Re-Evaluation 38207 06/15/19 07 NILSA LI [facility] Physical Therapy: ___ Se ion Segments, 15 Minutes Each Physical Therapy: ___ Session Segments, 15 Minutes Each 53485 06/13/19 07 CHETAN STEVENS [facility] Modalities Cryotherapy Cold Packs Modalities Cryotherapy Cold Packs 51442 06/13/19 07 CHETAN STEVENS Modalities Cryotherapy Cold Packs Modalities Cryotherapy Cold Packs 41343 06/10/19 07 NILSA LI [facility] Physical Therapy: ___ Se ion Segments, 15 Minutes Each Physical Therapy: ___ Session Segments, 15 Minutes Each 77017 06/10/19 07 NILSA LI Taping Knee Taping Knee 67762 06/08/19 07 CHETAN STEVENS Physical Therapy: ___ Se ion Segments, 15 Minutes Each Physical Therapy: ___ Session Segments, 15 Minutes Each 07042 06/08/19 07 CHETAN STEVENS Modalities Cryotherapy Cold Packs Modalities Cryotherapy Cold Packs 71515 06/08/19 07 CHETAN STEVENS Physical Therapy: ___ Se ion Segments, 15 Minutes Each Physical Therapy: ___ Session Segments, 15 Minutes Each 81369 06/06/19 07 CHETAN STEVENS Modalities Cryotherapy Cold Packs Modalities Cryotherapy Cold Packs 80866 06/06/19 07 CHETAN STEVENS [facility] Modalities Cryotherapy Cold Packs Modalities Cryotherapy Cold Packs 06226 06/03/19 07 DAKOTAH SNEED [facility] Physical Therapy: ___ Se ion Segments, 15 Minutes Each Physical Therapy: ___ Session Segments, 15 Minutes Each 45274 06/03/19 07 DAKOTAH SNEED [facility] Modalities Cryotherapy Cold Packs Modalities Cryotherapy Cold Packs 10862 06/02/19 07 DAKOTAH SNEED [facility] Physical Therapy: ___ Se ion Segments, 15 Minutes Each Physical Therapy: ___ Session Segments, 15 Minutes Each 86738 06/02/19 07 DAKOTAH SNEED [facility] Psychotherapy Individual Approx 30 Min W/ Medical Evaluation & Management Psychotherapy Individual Approx 30 Min W/ Medical Evaluation & Management 85493 06/01/19 07 NASIM FOSTER Phys Therapy Education Self Care Training - Per 15 Minutes Phys Therapy Education Self Care Training - Per 15 Minutes 32502 05/31/19 07 KALYAN SHOOK Taping Knee Taping Knee 72897 05/31/19 07 KALYAN SHOOK Physical Therapy Service Re-Evaluation Physical Therapy Service Re-Evaluation 14043 05/31/19 07 KALYAN SHOOK Psychotherapy Individual Approx 30 Min W/ Medical Evaluation & Management Psychotherapy Individual Approx 30 Min W/ Medical Evaluation & Management 54889 05/17/19 07 NASIM FOSTER Phys Therapy Education Self Care Training - Per 15 Minutes Phys Therapy Education Self Care Training - Per 15 Minutes 25576 05/09/19 07 NILSA LI Physical Therapy Service Re-Evaluation Physical Therapy Service Re-Evaluation 57417 05/09/19 07 NILSA LI [facility] Physical Therapy: ___ Se ion Segments, 15 Minutes Each Physical Therapy: ___ Session Segments, 15 Minutes Each 43926 05/05/19 07 CHETAN STEVENS Modalities Cryotherapy Cold Packs Modalities Cryotherapy Cold Packs 26158 05/05/19 07 CHETAN STEVENS Physical Therapy: ___ Se ion Segments, 15 Minutes Each Physical Therapy: ___ Session Segments, 15 Minutes Each 65514 05/04/19 07 CHETAN STEVENS Modalities Cryotherapy Cold Packs Modalities Cryotherapy Cold Packs 88335 05/04/19 07 CHETAN STEVENS Psychotherapy Individual Approx 30 Min W/ Medical Evaluation & Management Psychotherapy Individual Approx 30 Min W/ Medical Evaluation & Management 24723 05/02/19 07 NASIM FOSTER Modalities Cryotherapy Cold Packs Modalities Cryotherapy Cold Packs 27308 04/28/19 07 DAKOTAH SNEED Physical Therapy: ___ Se ion Segments, 15 Minutes Each Physical Therapy: ___ Session Segments, 15 Minutes Each 56014 04/28/19 07 DAKOTAH SNEED Modalities Cryotherapy Cold Packs Modalities Cryotherapy Cold Packs 14553 04/27/19 07 SUKUMAR ROMERO Physical Therapy: ___ Se ion Segments, 15 Minutes Each Physical Therapy: ___ Session Segments, 15 Minutes Each 24151 04/27/19 07 SUKUMAR ROMERO A isted Exercises For ROM Assisted Exercises For ROM 85936 04/25/19 07 KALYAN SHOOK Physical Therapy Service Re-Evaluation Physical Therapy Service Re-Evaluation 57497 04/25/19 07 KALYAN SHOOK Modalities Electrical Stimulation Modalities Electrical Stimulation 88016 04/24/19 07 KALYAN SHOOK Physical Therapy: ___ Se ion Segments, 15 Minutes Each Physical Therapy: ___ Session Segments, 15 Minutes Each 84009 04/24/19 07 KALYAN SHOOK Modalities Cryotherapy Cold Packs Modalities Cryotherapy Cold Packs 29164 04/24/19 07 KALYAN SHOOK Modalities Electrical Stimulation Modalities Electrical Stimulation 41848 04/21/19 07 CHETAN STEVENS Modalities Cryotherapy Cold Packs Modalities Cryotherapy Cold Packs 54349 04/21/19 07 CHETAN STEVENS Physical Therapy: ___ Se ion Segments, 15 Minutes Each Physical Therapy: ___ Session Segments, 15 Minutes Each [id number] 04/21/19 07 CHETAN STEVENS Psychotherapy Individual Approx 30 Min W/ Medical Evaluation & Management Psychotherapy Individual Approx 30 Min W/ Medical Evaluation & Management 32864 04/21/19 07 NASIM FOSTER Spectacles Services Fitting Monofocal Except For Aphakia Spectacles Services Fitting Monofocal Except For Aphakia 24893 04/20/19 07 TROY MCKEON Determination Of Refractive State Determination Of Refractive State 31421 04/20/19 07 TROY MCKEON Visual Real Test Limited Examination Visual Real Test Limited Examination 43405 04/20/19 07 TROY MCKEON Ophthalmological New Patient Start Comprehensive Care Ophthalmological New Patient Start Comprehensive Care [id number] 04/20/19 07 TROY MCKEON Psychotherapy Individual Approx 30 Min W/ Medical Evaluation & Management Psychotherapy Individual Approx 30 Min W/ Medical Evaluation & Management 97331 04/19/19 07 NASIM FOSTER Modalities Electrical Stimulation Modalities Electrical Stimulation 74992 04/17/19 07 CHETAN STEVENS Physical Therapy: ___ Se ion Segments, 15 Minutes Each Physical Therapy: ___ Session Segments, 15 Minutes Each 12861 04/17/19 07 CHETAN STEVENS Modalities Cryotherapy Cold Packs Modalities Cryotherapy Cold Packs 61480 04/17/19 07 CHETAN STEVENS Modalities Cryotherapy Cold Packs Modalities Cryotherapy Cold Packs 98967 04/11/19 07 KALYAN SHOOK Phys Therapy Education Self Care Training - Per 15 Minutes Phys Therapy Education Self Care Training - Per 15 Minutes 59058 04/11/19 07 KALYAN SHOOK A isted Exercises For ROM Assisted Exercises For ROM 18081 04/11/19 07 KALYAN SHOOK Physical Therapy Service Evaluation Physical Therapy Service Evaluation 61324 04/11/19 07 KALYAN SHOOK Patient Training And Self-Care Skills Patient Training And Self-Care Skills 16049 03/30/19 07 GILA COSME Patient Training And Self-Care Skills Patient Training And Self-Care Skills 75657 03/21/19 07 PERRI FAITH Psychotherapy Individual Approx 30 Min W/ Medical Evaluation & Management Psychotherapy Individual Approx 30 Min W/ Medical Evaluation & Management 49518 03/17/19 07 NASIM FOSTER Ankle foot orthosis, multiligamentous ankle support, prefabricated, [id number] 02/25/20 06 HENNA CAVAZOS Physical Therapy Education Orthotics Training Initial 15 Min 02/25/20 06 HENNA CAVAZOS Patient Training And Self-Care Skills Patient Training And Self-Care Skills 66796 02/09/20 06 PERRI FAITH Psychiatric Diagnostic Evaluation Comprehensive Examination Psychiatric Diagnostic Evaluation Comprehensive Examination 27693 01/27/20 06 RICCO DIAZ Patient Training And Self-Care Skills Patient Training And Self-Care Skills 90686 01/17/20 06 DUYEN GARZA Phys Therapy Education Self Care Training - Per 15 Minutes Phys Therapy Education Self Care Training - Per 15 Minutes 81735 01/17/20 06 DUYEN GARZA Screening Test Of Visual Acuity, Quantitative, Bilateral Screening Test Of Visual Acuity, Quantitative, Bilateral 37061 01/13/20 06 HENNA MARTIN Spectacles Services Fitting Monofocal Except For Aphakia Spectacles Services Fitting Monofocal Except For Aphakia 57046 01/13/20 06 HENNA MARTIN Determination Of Refractive State Determination Of Refractive State 74330 01/13/20 06 HENNA MARTIN Ear mold/insert, not disposable, any type 01/10/20 06 ERICA DANG Audiometry Group Testing Audiometry Group Testing 99062 01/10/20 06 ERICA DANG Physician Supervised Group Educational Services 01/10/20 06 ERICA DANG Social History Combined list of available smoking, tobacco, and other social 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 Social History Type Response Date Comment Sourc e Tobacco smoking status NHIS VA-TOBACCO USER EVERY DAY 06/28/2022 ALEXANDR URIOSTEGUI [facility] History of tobacco use VA-TOBACCO USE WI 30 MIN OF WAKEUP 06/28/2022 ALEXANDR URIOSTEGUI [facility] History of tobacco use VA-TOBACCO USER E VERY DAY 03/08/2021 ALEXANDR URIOSTEGUI [facility] History of tobacco use VA-TOBACCO USER E VERY DAY 01/27/2020 ALEXANDR URIOSTEGUI [facility] History of tobacco use FORMER TOBACCO US E >1Y <7Y 06/17/2015 [facility] History of tobacco use FORMER TOBACCO USE <1Y 07/30/2014 [facility] This section is an empty social history section. [facility] Plan of Care List of future care activities from Department of Veterans Affairs facilities. Additional future care activities may be listed in the Assessment and Plan section. Date/Time Care Activity Care Activity Detail Facili ty 10/05/2023 Laboratory - Chemistry Order TSH W/REFLEX TO FREE T4 PLASMA SP ONCE [facility]
--- OUTSIDE RECORDS SUMMARY | 2023-11-12 12:38 | XMS_ITS | Encounter Summary ---
Author Name [place] Address [address] [place] [address] Care Team Providers Care Community Arts Officer Name Role Phone JORGITO SHAH Primary Care [...] Patient's Relationship to Policy [employer] [facility] [facility] ([facility]) MEDICARE ADVANTAGE MCR ([facility]) Jan 12, 2016 [id number] [phone] SONIA VENCES PATIENT [employer] [facility] ([facility]) MEDICARE ADVANTAGE MCR ([facility]) Mar 13, 2020 [id number] SONIA VENCES PATIENT [employer] [facility] ([facility]) MEDICARE ADVANTAGE MCR ([facility]) Mar 13, 2020 [id number] [phone] SONIA VENCES MELVINZEUS PATIENT [employer] [facility] ([facility]) MEDICARE ADVANTAGE MCR ([facility]) Mar 13, 2020 [id number] SONIA VENCESIFER PATIENT [employer] [facility] ([facility]) MEDICARE ADVANTAGE MCR ([facility]) Mar 13, 2020 [id number] SONIA VENCES PATIENT [facility] ([facility]) MEDICARE ADVANTAGE MEDIC ARE NATHEN BRADLEY Mar 13, 2019 [id number] SONIA VENCES PATIENT Selected Encounter This section includes the information on record at [place] for the Encounter. Date/Time Encounter Type Encounter Description Reason Pro vider Source Aug 21, 2023 09:36 AM Outpatient Encounter PRIMARY CARE/MEDICINE IHE Encounter Template Text not used by [place] Plan of Treatment: Future Appointments (+ 6 months) and Future Tests (+/- 45 days) The Plan of Treatment section includes future care activities for the patient from all [place] [facility]. This section includes future appointments and future orders which are active, pending or scheduled. Future Appointments This section includes appointments that were scheduled to occur 6 months from the date of the Encounter, up to a maximum of 20 appointments. The data comes from all [place] treatment facilities. Appointment Date/Time Appointment Type Appointme nt Facility Name Aug 23, 2023 03:00 PM AMBULATORY - NONE [facility] Active, Pending, and Scheduled Orders This section includes a listing of several types of active, pending, and scheduled orders, including clinic medications orders, diagnostic test orders, procedure orders and consult orders; where the start date of the order is 45 days before the date of the Encounter or 45 days after the date of theEncounter. The data comes from all [facility]. Test Date/Time Test Type Test Details Facility Name Oct 05, 2023 12:00 AM Laboratory - Chemi stry Order TSH W/REFLEX TO FREE T4 PLASMA SP ONCE [facility] Oct 05, 2023 12:00 AM Laboratory - Chemi stry Order TSH W/REFLEX TO FREE T4 PLASMA SP ONCE [facility] Lab Results: +/- 30 days of the encounter This section includes the Chemistry and Hematology Lab Results on record with [place] for the patient. Radiology Reports and Pathology Reports are provided separately, in subsequent sections. Lab Results This section contains the Chemistry/Hematology Results that were resulted 30 days before or 30 daysafter the date of the Encounter. Date/Time Source Result Type Result - Unit Interpretation Reference Range Comment Aug 23, 2023 03:28 PM [facility] TSH W/REFLEX TO FREE T4 Specimen Type: PLASMA No comment entered. Ordering Provider: BORTHWICK,EUGENE SSA L Report Released Date/Time: Sep 27, 2022 02:41 PM Reporting Lab: [facility] [address] [facility] [id number] Performing Lab: [facility] [id number] TSH 0.04 u[IU]/mL L 0.35-4.94 FREE T4 1.32 ng/dL 0.70-1.48 Social History: Smoking Status (Most current) and Tobacco Use (All prior to encounter date) This section includes the most current, and the historical, smoking and tobacco- related health factors from the [facility] where the Encounter took place. Current Smoking Status This section includes the most current smoking, or tobacco-related health factor, from the [place] facility where the Encounter took place. Date/Time Current Smoking Status Comment Facil ity Jun 17, 2015 07:02 AM FORMER TOBACCO USE >1Y <7Y [facility] Tobacco Use History This section includes a history of the smoking, or tobacco-related health factors, that were collected on or before the date of the Encounter. The data comes from the [place] facility where the Encounter took place. Date/Time Smoking Status/Tobacco Use Comment F acility July 30, 2014 09:31 AM FORMER TOBACCO USE <1Y [facility] Encounter Notes: All associated encounter notes This section contains the clinical notes associated to the Encounter. Date/Time Encounter Note(s) Provider Source Aug 21, 2023 09:36 AM REPORT OF CONTACT: LOCAL TITLE: APPOINTMENT SCHEDULING NOTE STANDARD TITLE: REPORT OF CONTACT DATE OF NOTE: AUG 21, 2023@09:36 ENTRY DATE: AUG 21, 2023@09:36:24 AUTHOR: DIOGO GREEN EXP COSIGNER: URGENCY: STATUS: COMPLETED Attempted to schedule Return to clinic (RTC) Contact attempt made to [place] 1st attempt Telephone 2nd attempt Letter - Sent letter by regular [place] mail to address on file: [place] [address] [place] [address] Disposition order request after Aug Left message on voice mail to call back to this number [phone] If calls back, schedule appt for: [facility] PACT IRIS - BLOOD DRAW #[id number] - PID /es/ DIOGO GREEN MSA Signed: 08/21/2023 09:37 DIOGO GREEN [facility]
--- OUTSIDE RECORDS SUMMARY | 2023-11-12 12:38 | XMS_ITS | Encounter Summary ---
Author Name [place] Address [address] [place] [address] Care Team Providers Care Hearse Driver Name Role Phone JORGITO SHAH Primary Care [...] to Policy [employer] [facility] [facility] ([facility]) MEDICARE ADVANTAGE MCR ([facility]) Jan 12, 2016 [id number] [phone] SONIA VENCES PATIENT [employer] [facility] ([facility]) MEDICARE ADVANTAGE MCR ([facility]) Mar 13, 2020 [id number] SONIA VENCES PATIENT [employer] [facility] ([facility]) MEDICARE ADVANTAGE MCR ([facility]) Mar 13, 2020 [id number] SONIA VENCES PATIENT [employer] [facility] ([facility]) MEDICARE ADVANTAGE MCR ([facility]) Mar 13, 2020 [id number] [phone] SONIA VENCES PATIENT [employer] [facility] ([facility]) MEDICARE ADVANTAGE MCR ([facility]) Mar 13, 2020 [id number] SONIA VENCES PATIENT [facility] ([facility] MEDICARE ADVANTAGE MEDIC MARY ELLEN BRADLEY Mar 13, 2019 [id number] RUSONIA FLORIAN PATIENT Selected Encounter This section includes the information on record at [place] for the Encounter. Date/Time Encounter Type Encounter Description Reason Provider Source Jul 07, 2023 08:46 AM Outpatient Encounter ADMIN PAT ACTIVTIES (MASNONCT) LORRAINE COOK Encounter Template Text not used by [place] Plan of Treatment: Future Appointments (+ 6 months) and Future Tests (+/- 45 days) The Plan of Treatment section includes future care activities for the patient from all [place] treatmentfacilities. This section includes future appointments and future orders which are active, pending or scheduled. Future Appointments This section includes appointments that were scheduled to occur 6 months from the date of the Encounter, up to a maximum of 20 appointments. The data comes from all [place] treatment facilities. Appointment Date/Time Appointment Type Appointme nt Facility Name Aug 23, 2023 03:00 PM AMBULATORY - NONE [facility] Social History: Smoking Status (Most current) and Tobacco Use (All prior to encounter date) This section includes the most current, and the historical, smoking and tobacco- related health factors from the [place] facility where the Encounter took place. Current Smoking Status This section includes the most current smoking, or tobacco-related health factor, from the [place] facility where the Encounter took place. Date/Time Current Smoking Status Comment Facil ity Jun 17, 2015 07:02 AM FORMER TOBACCO USE >1Y <7Y [facility] Tobacco Use History This section includes a history of the smoking, or tobacco-related health factors, that were collected on or before the date of the Encounter. The data comes from the [place] facility where the Encounter took place. Date/Time Smoking Status/Tobacco Use Comment F acility July 30, 2014 09:31 AM FORMER TOBACCO USE <1Y [facility] Encounter Notes: All associated encounter notes This section contains the clinical notes associated to the Encounter. Date/Time Encounter Note(s) Provider Source Jul 11, 2023 08:19 AM ADDENDUM: LOCAL TITLE: Addendum STANDARD TITLE: ADDENDUM DATE OF NOTE: JUL 11, 2023@08:19:45 ENTRY DATE: JUL 11, 2023@08:19:46 AUTHOR: AURA CHISHOLM EXP COSIGNER: URGENCY: STATUS: COMPLETED was seen in a Community ED. Records uploaded to chart. Please review and follow up as appropriate. /jose armando/ AURA CHISHOLM .MarieAdvanced Soil Conservationist Signed: 07/11/2023 08:19 Receipt Acknowledged By: 07/11/2023 10:39 /es/ Celeste Perry MD Physician for JORGITO SHAH 07/11/2023 09:20 /es/ SHIMA HERNANDEZ RN REGISTERED NURSE === --- Original Document --- 07/06/23 [facility] PRESENTING CARE COORD PLAN NOTE: Emergency Notification Intake Date Presenting to the Facility: Jun Method of Contact: Notified from General [employer] worklist Notification ID: [id number] [facility] Referral #: [facility] Hospital Name: Hospital: [facility] Address: City: [place] State: [place] Zip Code: Phone : [facility] Facility Point of Contact: Name: GAMAL Chief complaint: SCALP INFECTION Primary Diagnosis: Disposition Unknown at time of intake note entry /es/ FLAKITA TAPIA [facility] Signed: 07/07/2023 08:52 Receipt Acknowledged By: 07/07/2023 11:42 /es/ Lorraine Cook, DENTURE TECHNICIAN [email or web address] analyst Academic Administrator 07/07/2023 ADDENDUM STATUS: COMPLETED Records requested and will be uploaded via [employer] when received. /es/ CRISTY LANDIN ADVANCED GAUGE CHECKER Signed: 07/07/2023 15:17 Receipt Acknowledged By: 07/07/2023 15:34 /es/ SHIMA HERNANDEZ RN REGISTERED NURSE 07/06/2023 ADDENDUM STATUS: COMPLETED [facility] Scanned Document - Addendum. ED records 07/06/2023 [facility] SCANNED DOCUMENT SIGNATURE NOT REQUIRED Electronically Filed: 07/11/2023 by: AURA MeloAdvanced Soil Conservationist 07/11/2023 ADDENDUM STATUS: UNSIGNED You may not VIEW this UNSIGNED Addendum. AURA CHISHOLM [facility] Jul 07, 2023 03:17 PM ADDENDUM: LOCAL TITLE: Addendum STANDARD TITLE: ADDENDUM DATE OF NOTE: JUL 07, 2023@15:17:03 ENTRY DATE: JUL 07, 2023@15:17:05 AUTHOR: OSWALDO YEN EXP COSIGNER: URGENCY: STATUS: COMPLETED Records requested and will be uploaded via [employer] when received. /jose armando/ CRISTY LANDIN ADVANCED GAUGE CHECKER Signed: 07/07/2023 15:17 Receipt Acknowledged By: 07/07/2023 15:34 /es/ SHIMA HERNANDEZ RN REGISTERED NURSE === --- Original Document --- 07/06/23 [facility] PRESENTING CARE COORD PLAN NOTE: Emergency Notification Intake Date Presenting to the Facility: Jun Method of Contact: Notified from [facility] worklist Notification ID: [id number] [facility] Referral #: [facility] Hospital Name: Hospital: [facility] Address: City: [place] State: [place] Zip Code: Phone : [facility] Point of Contact: Name: GAMAL Chief complaint: SCALP INFECTION Primary Diagnosis: Disposition Unknown at time of intake note entry /es/ FLAKITA [facility] Signed: 07/07/2023 08:52 Receipt Acknowledged By: 07/07/2023 11:42 /es/ Lorraine Cook DENTURE TECHNICIAN [email or web address] analyst Academic Administrator OSWALDO YEN [facility] Jul 06, 2023 08:47 AM NONVA NOTE: LOCAL TITLE: [facility] PRESENTING CARE COORD PLAN STANDARD TITLE: NONVA NOTE DATE OF NOTE: JUL 06, 2023@08:47 ENTRY DATE: JUL 07, 2023@08:47:44 AUTHOR: FLAKITA TAPIA EXP COSIGNER: URGENCY: STATUS: COMPLETED [facility] PRESENTING CARE COORD PLAN NOTE Has ADDENDA Emergency Notification Intake Date Presenting to the Facility: Jun Method of Contact: Notified from ECR worklist Notification ID: [id number] [facility] Address: City: [place] State: [place] Zip Code: Phone : [facility] Facility Point of Contact: Name: GAMAL Chief complaint: SCALP INFECTION Primary Diagnosis: Disposition Unknown at time of intake note entry /jose armando/ FLAKITA [facility] Signed: 07/07/2023 08:52 Receipt Acknowledged By: 07/07/2023 11:42 /es/ Lorraine Cook DENTURE TECHNICIAN [email or web address] analyst Academic Administrator 07/07/2023 ADDENDUM STATUS: COMPLETED Records requested and will be uploaded via [employer] when received. /es/ CRISTY LANDIN ADVANCED GAUGE CHECKER Signed: 07/07/2023 15:17 Receipt Acknowledged By: 07/07/2023 15:34 /es/ SHIMA HERNANDEZ RN REGISTERED NURSE 07/06/2023 ADDENDUM STATUS: COMPLETED VistA Imaging Scanned Document - Addendum. ED records 07/06/2023 [facility] SCANNED DOCUMENT SIGNATURE NOT REQUIRED Electronically Filed: 07/11/2023 by: AURA CHISHOLM .MarieAdvanced Soil Conservationist 07/11/2023 ADDENDUM STATUS: COMPLETED [place] was seen in a Community ED. Records uploaded to chart. Please review and follow up as appropriate. /jose armando/ AURA MeloAdvanced Soil Conservationist Signed: 07/11/2023 08:19 Receipt Acknowledged By: 07/11/2023 10:39 /es/ Celeste Perry MD Physician for JORGITO SHAH 07/11/2023 09:20 /es/ SHIMA HERNANDEZ RN REGISTERED NURSE 07/11/2023 ADDENDUM STATUS: COMPLETED She was seen for cellulitis of scalp, associated with chronic skin lesions. She was treated with Bactrin and cephalexin. She also had URX sxs, for which supportive cares were recommended. F/u with PCP PRN. /jose armando/ Celeste Perry MD Physician Signed: 07/11/2023 10:41 FLAKITA TAPIA [facility]
--- OUTSIDE RECORDS SUMMARY | 2023-11-12 12:38 | XMS_ITS | Encounter Summary ---
Author Name [place] Address [address] [place] [address] Care Team Providers Care Mysql Developer Name Role Phone JORGITO SHAH Primary Care [...] Patient's Relationship to Policy [employer] [facility] [facility] ([facility] MEDIC[facility] ADVANTAGE MCR ([facility]) Jan 12, 2016 [id number] [phone] SONIA VENCES PATIENT [employer] [facility] ([facility]) MEDICARE ADVANTAGE MCR ([facility]) Mar 13, 2020 [id number] SONIA VENCES PATIENT [employer] [facility] ([facility]) MEDICARE ADVANTAGE MCR ([facility]) Mar 13, 2020 [id number] SONIA VENCES PATIENT [employer] [facility] ([facility]) MEDICARE ADVANTAGE MCR ([facility]) Mar 13, 2020 [id number] SONIA VENCES PATIENT [employer] [facility] ([facility]) MEDICARE ADVANTAGE MCR ([facility]) Mar 13, 2020 [id number] SONIA VENCES PATIENT [facility] ([facility]) MEDICARE ADVANTAGE MEDIC ARE NATHEN BRADLEY Mar 13, 2019 [id number] SONIA VENCES PATIENT Selected Encounter This section includes the information on record at [place] for the Encounter. Date/Time Encounter Type Encounter Description Reason Provider Source May 30, 2023 11:00 AM Outpatient Encounter DERMATOLOGY DAOJESUSPAXTON L Braulio Encounter Template Text not used by [place] Plan of Treatment: Future Appointments (+ 6 [...] Date/Time Appointment Type Appointme nt Facility Name Jul 07, 2023 08:46 AM AMBULATORY - NONE [facility] Aug 23, 2023 03:00 PM AMBULATORY - NONE [facility] Social History: Smoking Status (Most current) [...] 07:02 AM FORMER TOBACCO USE >1Y <7Y [facility] Tobacco Use History This section includes a history of the smoking, or tobacco-related health factors, that were collected on or before the date of the Encounter. The data comes from the [place] facility where the Encounter took place. Date/Time Smoking Status/Tobacco Use Comment F acility July 30, 2014 09:31 AM FORMER TOBACCO USE <1Y [facility] Encounter Notes: All associated encounter notes [...] letter queued to be sent Contact: Called at: If calls back, schedule appointment for: Return to [facility] on or around ( May 30, 2023 ) for a total of 1 appointment(s) /es/ FIONA SMITH ADVANCED MSA Signed: 05/30/2023 12:29 FIONA SMITH [facility]
--- OUTSIDE RECORDS SUMMARY | 2023-11-12 12:38 | XMS_ITS | Encounter Summary ---
Author Name [facility] Organization [facility] [place] [facility] [place] Address [address] [place] [address] Care Team Providers Care Lpn Rn Hospice Name Role Phone JORGITO SHAH Primary Care [...] Patient's Relationship to Policy [facility] ([facility]) MEDICARE ADVANTAGE [facility] ([facility]) Jan 12, 2016 [id number] [phone] SONIA VENCES PATIENT [facility] [facility] ([facility]) MEDICARE ADVANTAGE [facility] ([facility]) Mar 13, 2020 [id number] SONIA VENCES PATIENT [facility] ([facility]) MEDICARE ADVANTAGE [facility] ([facility]) Mar 13, 2020 [id number] SONIA VENCES PATIENT [facility] ([facility]) MEDICARE ADVANTAGE [facility] ([facility]) Mar 13, 2020 [id number] [phone] SONIA VENCES PATIENT [facility] ([facility]) MEDICARE ADVANTAGE [facility] ([facility]) Mar 13, 2020 [id number] SONIA VENCES PATIENT [facility] ([facility]) MEDICARE ADVANTAGE MEDIC [facility] Mar 13, 2019 [id number] SONIA VENCES PATIENT Selected Encounter This section includes the information on record at [place] for the Encounter. Date/Time Encounter Type Encounter Description Reason Provider Source Apr 03, 2023 02:14 PM EMERGENCY DEPT VISIT [facility] EMERGENCY DEPT ICD-10-CM R21 Rash and other nonspecific skin eruption ATIYA ROLLINS [facility] Encounter Template Text not used by [place] Assessments - Encounter Diagnoses This section includes the primary and secondary diagnoses documented for the Encounter. Date/Time Primary/Secondary Diagnosis Diagnosis Name Provider Source Apr 03, 2023 04:36 PM PRIMARY Rash and other nonspecific skin eruption [facility] Apr 03, 2023 04:36 PM SECONDARY Acute cough [facility] Plan of Treatment: Future Appointments (+ 6 months) and Future Tests (+/- 45 days) The Plan of Treatment section includes future care activities for the patient from all [place] treatmentfacilities. This section includes future appointments and future orders which are active, pending or scheduled. Future Appointments This section includes appointments that were scheduled to occur 6 months from the date of the Encounter, up to a maximum of 20 appointments. The data comes from all [place] treatment facilities. Appointment Date/Time Appointment Type Appointme nt Facility Name May 30, 2023 11:00 AM AMBULATORY - SURGERY [facility] Jul 07, 2023 08:46 AM AMBULATORY - NONE [facility] Aug 23, 2023 03:00 PM AMBULATORY - NONE [facility] Vital Signs: All taken on the encounter date This section contains inpatient and outpatient Vital Signs collected on the date of the Encounter. Date/Time Temperature Pulse Blood Pressure Respiratory Rate SP02 Pain Height Weight Body Mass Index Source Apr 03, 2023 03:28 PM 97.7 F 69 /min 99/55 mm[Hg] 15 /min 0 [facility] Social History: Smoking Status (Most current) and Tobacco Use (All prior to encounter date) This section includes the most current, and the historical, smoking and tobacco- related health factors from the [place] facility where the Encounter took place. Current Smoking Status This section includes the most current smoking, or tobacco-related health factor, from the [place] facility where the Encounter took place. Date/Time Current Smoking Status Comment Facil ity Jun 17, 2015 07:02 AM FORMER TOBACCO USE >1Y <7Y [facility] Tobacco Use History This section includes a history of the smoking, or tobacco-related health factors, that were collected on or before the date of the Encounter. The data comes from the [facility] where the Encounter took place. Date/Time Smoking Status/Tobacco Use Comment F acility July 30, 2014 09:31 AM FORMER TOBACCO USE <1Y [facility] Encounter Notes: All associated encounter notes [...] EDUCATION GIVE: Discharged to: Home /jose armando/ KANDACE LINDER MSN, RN REGISTERED NURSE Signed: 04/03/2023 16:38 KANDACE LINDER [facility] Apr 03, 2023 04:23 PM EMERGENCY DEPT [...] have not received a call in 2 business days please call , ask for the [...] be recommended to keep the skin moist. Bwbo-qet-atffanj medicines may also be prescribed to help [...] TO THE NEAREST EMERGENCY ROOM /jose armando/ ATIYA ROLLINS PA-C Signed: 04/03/2023 16:23 ATIYA ROLLINS [facility] Apr 03, 2023 04:19 PM PHYSICIAN EMERGENCY [...] edema Neuro: Alert and oriented, normal speech, triage registered nurse grossly intact, full strength in upper and lower extremities ORDERS: Item Ordered START DATE STOP DATE ENTERED DIPHENHYDRAMINE CAP,OR APR 03, 2023@16:18 Discharge From the [facility] APR 03, 2023 APR 03, 2023@16:17:56 PMH: Active problems - Computerized Problem List is the source for the followin. Recurrent major depressive episodes, severe, with psychosis - suicide attempt/hospitalization [place] 1991 2. Family history of disorder - Fa depression, HT - sister bipolar, hypothyroidism, type 2 DM - Mo - depression - Mat GF prostate cancer 3. 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 H/O: - - vaginal 5. Acne (SNOMED CT 18218270) 6. Closed fracture of fifth metatarsal bone [...] globus pharyngeus 27. Knee pain (SNOMED CT 7693898213) - bilateral, RX hyaluronic and RESEARCH MICROBIOLOGIST injections 28. health maintenance - 05/28/13 normal [...] aureus infection 34. Suicidal ideation (SNOMED CT 7144876) MEDS: Active Outpatient Medications (including Supplies): Active [...] Remote Allergy/ADR Data available for this patient [facility] OXYCODONE [facility] PREDNISONE [facility] QUETIAPINE [facility] TETRACYCLINE [facility] TRAMADOL [facility] TRAZODONE [facility] VENLAFAXINE FAMILY HISTORY: No relevant SOCIAL HISTORY: [...] ROLLINS PA-C Signed: 04/03/2023 16:26 ATIYA ROLLINS [facility] Apr 03, 2023 04:04 PM NURSING EMERGENCY DEPT NOTE: LOCAL TITLE: EMERGENCY DEPT NURSING NOTE STANDARD TITLE: NURSING EMERGENCY DEPT NOTE DATE OF NOTE: APR 03, 2023@16:04 ENTRY DATE: APR 03, 2023@16:04:33 AUTHOR: KANDACE LINDER EXP COSIGNER: URGENCY: STATUS: COMPLETED Nursing Focused [...] in low position and locked /es/ KANDACE LINDER, MSN, RN REGISTERED NURSE Signed: 04/03/2023 16:06 KANDACE LINDER [facility] Apr 03, 2023 03:26 PM NURSING EMERGENCY DEPT TRIAGE NOTE: LOCAL TITLE: EMERGENCY DEPARTMENT NURSING TRIAGE NOTE STANDARD TITLE: NURSING EMERGENCY DEPT TRIAGE NOTE DATE OF NOTE: APR 03, 2023@15:26 ENTRY DATE: APR 03, 2023@15:26:14 AUTHOR: CIRA ARREAGA EXP COSIGNER: URGENCY: STATUS: COMPLETED Emergency Department/Urgent [...] major depressive episodes, sevFamily history of disorder ([facility] [id number]) Affective personality trait ([facility] 8594732E/O: ([facility] 165837627) Acne ([facility] 48071874) Closed fracture of fifth metatarsal bone ([facility] 80100204) Gastroesophageal reflux disease (SCT 235Anxiety disorder ([facility] 819222910) Tear of medial meniscus of knee (SCT 302Mild persistent asthma ([facility] 901543593) Hypothyroidism ([facility] 36799761) Celiac disease ([facility] 509886392) Steatosis of liver ([facility] 956618930) Chronic low back pain (SCT 675705158) Nicotine dependence ([facility] 82619493) Schizoaffective disorder (SCT 24328260) Perennial allergic rhinitis (SCT 3192568Atcayo migraine (SCT 60586475) Cyst of breast (SCT 536930379) Chronic pain syndrome (SCT 478456659) Mixed hyperlipidemia (SCT 632038857) Angioedema of tongue (SCT 371506779) MDD, Recurrent, unspec (ICD-9-CM 296.30)Herpes labialis (SCT 3284155) Acute gastric ulcer (SCT 03624796) Dysphagia ([facility] 71884311) Knee pain ([facility] 5697719849) health maintenance (ICD-10-CM R69.) Lumbar disc prolapse with radiculopathy Morbid obesity ([facility] 284262035) Refractory migraine with aura ([facility] 03253Nszuxjzqy of right hip region ([facility] [id number]) History of methicillin resistant StaphylSuicidal ideation ([facility] 2668090) Identification of Seniors at Risk (ISAR):* Defer screen <75 Suicide Screen: [place]lin Suicide Severity Rating Scale (C-SSRS) screener 1. [...] REGISTERED NURSE Signed: 04/03/2023 15:29 CIRA ARREAGA [facility]
--- OUTSIDE RECORDS SUMMARY | 2023-11-12 12:39 | XMS_ITS | Referral Summary ---
Author Organization [facility] Address [address] [place] [address] Care Team Providers Care Bill Cutter Name Role Phone Elsewhere, Pcp Primary Care Provider Unavailabl e Source Comments Patient records contain information from all sites at [facility]. For routine questions regarding patient records, call [phone] during business hours, M-F 8:00 AM - 5:00 PM Central Time. Record requests for emergency care only can be directed to [phone] at any time.[facility] Encounters Date Type Department Care Team Description 09/11/2023 Clinical Communication Department of Family Medicine, [facility], in [place], [place] [address] [place] [id number] Thao Zhu D.O. 08/15/[address] [facility] PCP [facility] Thao Zhu D.O. Hypothyroidism 08/14/[address] [facility] - [place] [address] [place] [phone] Viv Lloyd from Last 3 Months Allergies Active Allergy [...] NOT SWALLOW 180 each 3 05/12/2023 Active dupilumab (Dupixent Pen) 300 mg/2 mL injection Inject 2 mL (300 mg total) under the skin every 14 (fourteen) days. 12 mL 3 08/04/2023 Active clobetasoL (CORMAX) 0.05 % external solution Apply 1 Application topically 2 (two) times a day. Apply to affected areas on the scalp. 50 mL 3 08/04/2023 Active clindamycin (CLEOCIN T) 1 % external solution Apply 1 Application topically 2 (two) times a day. Apply to scalp. 60 mL 11 08/04/2023 Active dupilumab (Dupixent Pen) 300 mg/2 mL injectionIndication s:prurigo nodularis Indications: chronic skin disease causing very itchy nodules. Inject 600 mg (4 mL) on day 1 then inject 300 mg (2 mL) every 14 days. 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 Montana Lomeli / psychiatry Signed: 06/13/14 Dr. [place] Lomeli / psychiatry Anxiety 10/13/2015 Rhinitis Allergic Due To Outdoor Pollen 10/13/19 16 Diaphragmatic Hernia Without Obstruction Or Gang raul 04/01/2015 Tobacco Use 01/21/2014 Hyperlipidemia Mixed 07/03/2012 Degeneration Disc Lumbosacral 05/04/2012 Overview (10/08/2020): ~ May 2012: L5-S1 interlaminar BRITTANY by [...] Function Test 03/29/2012 Administrative Purpose Exam 01/28/2012 Overview (10/08/2020): Controlled substance contract signed 08/17/11, see scanned document JOYCE SCHERER RN 01/28/2012 4:40 AM Controlled substance contract signed 08/17/11, see scanned document JOYCE SCHERER RN 01/28/2012 4:40 AM Celiac Disease 10/19/2011 Overview (10/08/2020): EGD 10/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 EGD 09/2017 Walker 2 celiac disease EGD 10/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 EGD 09/2017 Walker 2 celiac disease Deficiency Vitamin D 08/04/2010 Anemia Iron Deficiency 04/20/2010 Cramp And Spasm 04/20/2010 Acne Vulgaris 08/20/2009 Migraine Headache 05/15/2009 Urticaria 02/01/2008 Overview (10/08/2020): Angioedema from raspberries Angioedema from raspberries Hypothyroidism 09/25/2007 Asthma Moderate Persistent 07/23/2007 Overview (10/08/2020): Mild intermittent Mild intermittent Morbid Severe Obesity Due To Excess Calories Reflux Esophagitis 12/26/2006 Immunizations Name Administration Dates Next Due SARS-COV-2 (COVID-19) - PFIZ ER (Discontinued)(12 years or older) 06/30/2020,06/04/2020 Social History Tobacco Use Types Packs/Day Years Used Date Smoking Tobacco: Some Days Cigarettes 0.5 14.7 Started: 03/2009 Smokeless Tobacco: Never Tobacco Cessation:Ready [...] How often do you attend chur or hinduism services? Patient declined 04/08/2021 Do you belong to any clubs o r organizations such as mu-ism groups, unions, fraternal or athletic groups, or [...] housing, medical care, and heating? Hard 04/08/2021 [facility] - Occupational Stress [...] place to sleep or slept in a halfway (including now)? No 04/08/2021 Nutrition Answer Date [...] T Respiratory Rate 20 05/05/2021 2:12 PM HISTOTECHNOLOGIST SUPERVISOR Oxygen Saturation 98% 06/16/2021 8:55 PM CDT Inhaled Oxygen Concentration - - Weight 72 kg (158 lb 13.5 oz) 06/29/2021 8:25 AM CDT Height 157.5 cm (5' 2) 11/05/2019 1:39 PM CDT Body Mass Index 29.05 11/05/2019 1:39 PM CDT Plan of Treatment Not on file Procedures Procedure Name Priority Date/Time Associated Diagnosis Comments COMPREHENSIVE METABOLIC PANEL, S/P STAT 05/05/2021 3:03 PM HISTOTECHNOLOGIST SUPERVISOR THYROID-STIMULATING HORMONE-SENSITIVE (S-TSH) STAT 04/13/2021 5:56 PM HISTOTECHNOLOGIST SUPERVISOR from Last 3 Months or Most Recently Relevant to Health Maintenance Results * (ABNORMAL) Comprehensive Metabolic Panel (05/05/2021 3:03 PM HISTOTECHNOLOGIST SUPERVISOR) Pathologist [facility] Potassium, P 3.7 3.6 - 5.2 mmol/L 05/05/2021 3:29 PM HISTOTECHNOLOGIST SUPERVISOR SEGUNDO Sodium, P 136 135 - 145 mmol/L 05/05/2021 3:29 PM HISTOTECHNOLOGIST SUPERVISOR SEGUNDO Chloride, P 104 98 - 107 mmol/L 05/05/2021 3:29 PM HISTOTECHNOLOGIST SUPERVISOR SEGUNDO Bicarbonate, P 20(L) 22 - 29 mmol/L 05/05/2021 3:29 PM HISTOTECHNOLOGIST SUPERVISOR SEGUNDO Anion Gap, P 12 7 - 15 05/05/2021 3:29 PM HISTOTECHNOLOGIST SUPERVISOR SEGUNDO BUN (Blood Urea Nitrogen), P 13 6 - 21 mg/dL 05/05/2021 3:29 PM HISTOTECHNOLOGIST SUPERVISOR SEGUNDO Creatinine 0.71 0.59 - 1.04 mg/dL 05/05/2021 3:29 PM HISTOTECHNOLOGIST SUPERVISOR SEGUNDO eGFR-Black/ >90 >=60 mL/min/BS A 05/05/2021 3:29 PM HISTOTECHNOLOGIST SUPERVISOR SEGUNDO Comment: ----ADDITIONAL INFORMATION---- Estimated GFR calculated using the 2009 CKD_EPI creatinine equation. eGFR Non-Black/ >90 >=60 mL/min/BS A 05/05/2021 3:29 PM HISTOTECHNOLOGIST SUPERVISOR SEGUNDO Comment: ----ADDITIONAL INFORMATION---- Estimated GFR calculated using the 2009 CKD_EPI creatinine equation. Calcium, Total, P 8.4(L) 8.6 - 10.0 mg/dL 05/05/2021 3:29 PM HISTOTECHNOLOGIST SUPERVISOR SEGUNDO Glucose, P 90 70 - 140 mg/dL 05/05/2021 3:29 PM HISTOTECHNOLOGIST SUPERVISOR SEGUNDO Protein, Total, P 6.0(L) 6.3 - 7.9 g/dL 05/05/2021 3:29 PM HISTOTECHNOLOGIST SUPERVISOR SEGUNDO Albumin, P 3.4(L) 3.5 - 5.0 g/dL 05/05/2021 3:29 PM HISTOTECHNOLOGIST SUPERVISOR SEGUNDO Aspartate Aminotransferase (AST), P 32 8 - 43 U/L 05/05/2021 3:29 PM HISTOTECHNOLOGIST SUPERVISOR SEGUNDO Alkaline Phosphatase, P 85 35 - 104 U/L 05/05/2021 3:29 PM HISTOTECHNOLOGIST SUPERVISOR SEGUNDO Alanine Aminotransferase (ALT), P 20 7 - 45 U/L 05/05/2021 3:29 PM HISTOTECHNOLOGIST SUPERVISOR SEGUNDO Bilirubin, Total, P 0.3 <=1.2 mg/dL 05/05/2021 3:29 PM HISTOTECHNOLOGIST SUPERVISOR SEGUNDO Blood (Blood, Venous) 05/05/2021 3:03 PM HISTOTECHNOLOGIST SUPERVISOR 05/05/2021 3:11 PM HISTOTECHNOLOGIST SUPERVISOR Tyra Ramos P.A.-C., M.S. LAB BLOOD ADD-ON [facility] [address] [place] [address], [facility] SEGUNDO [facility]- [facility] [address] [place] [address] * S-TSH (Thyroid-Stimulating Hormone - Sensitive) (04/13/2021 5:56 PM HISTOTECHNOLOGIST SUPERVISOR) [facility] TSH, Sensitive 0.8 0.3 - 4.2 mIU/L 04/13/2021 7:29 PM HISTOTECHNOLOGIST SUPERVISOR AUST Blood (Blood, Venous) 04/13/2021 5:56 PM HISTOTECHNOLOGIST SUPERVISOR 04/13/2021 6:15 PM HISTOTECHNOLOGIST SUPERVISOR Panchito Meade P.A.-C., P.A., M.S. LAB BLO OD ADD-ON [facility] [address] [place] [address], [facility] - [facility] [address] [place] [address] from Last 3 Months or Most Recently Relevant to Health Maintenance Care Teams Bill Cutter Relationship Specialty Start Date End Date Elsewhere, Pcp PCP - General Internal Medicine 09/11/23
--- OUTSIDE RECORDS SUMMARY | 2023-11-12 12:39 | XMS_ITS | Encounter Summary ---
Author Organization [facility] Address [address] [place] [address] Care Team Providers Care Refining Supervisor Name Role Phone Elsewhere, Pcp Primary Care Provider Unavailabl e Encounter Details Date Type Department Care Team (Late st Contact Info) Description 09/11/2023 Clinical Communication Department of Family Medicine, [facility], in [place], [place] [address] [place] [id number] Thao Zhu D.O. [address] [place] [id number] Social History Tobacco Use Types Packs/Day Years Used Date Smoking Tobacco: Some Days Cigarettes 0.5 14.7 Started: 03/2009 Smokeless Tobacco: Never Comments:trying to [...] How often do you attend chur or episcopalian services? Patient declined 04/08/2021 Do you belong to any clubs o r organizations such as catholic groups, unions, fraternal or athletic groups, or [...] housing, medical care, and heating? Hard 04/08/2021 [facility] - Occupational [...] place to sleep or slept in a intermediate (including now)? No 04/08/2021 Nutrition Answer Date [...] as of this encounter Plan of Treatment Not on file documented as of this encounter Visit Diagnoses Not on filedocumented in this encounter Care Teams Refining Supervisor Relationship Specialty Start Date End Date Elsewhere, Pcp PCP - General Internal Medicine 09/11/23 documented as of this encounter
--- OUTSIDE RECORDS SUMMARY | 2023-11-12 12:39 | XMS_ITS | Encounter Summary ---
Author Organization [facility] Address [address] [place] [address] Care Team Providers Care Lead Quality Technician Name Role Phone Thao Zhu D.O. Primary Care Provider [phone] Encounter Details Date Type Department Care Team (Late st Contact Info) Description 08/14/2023 Orders Only [facility] Pharmacy - [place] [address] , [address] [phone] Viv Lloyd Social History Tobacco Use Types Packs/Day Years [...] often do you attend chur ch or advent services? Patient declined 04/08/2021 Do you belong to any clubs o r organizations such as temple groups, unions, fraternal or athletic groups, or [...] housing, medical care, and heating? Hard 04/08/2021 [facility] - [...] place to sleep or slept in a residential (including now)? No 04/08/2021 Nutrition Answer Date [...] on filedocumented in this encounter Care Teams Lead Quality Technician Relationship Specialty Start Date End Date Thao Zhu D.O. [address] [place] [phone] PCP - General Family Medicine 04/23/19 09/10/23 documented as of this encounter
--- OUTSIDE RECORDS SUMMARY | 2023-11-12 12:39 | XMS_ITS | Encounter Summary ---
Author Organization [facility] Address [address] [place] [address] Care Team Providers Care Manager Community Development Name Role Phone Thao Zhu D.O. Primary Care Provider [phone] Encounter Details Date Type Department Care Team (Late st Contact Info) Description 08/10/2023 Clinical Communication Pharmacy Prior Auth [phone] Keegan Cooney Social History Tobacco Use Types Packs/Day Years [...] often do you attend chur ch or quaker services? Patient declined 04/08/2021 Do you belong to any clubs o r organizations such as mandaen groups, unions, fraternal or athletic groups, or [...] housing, medical care, and heating? Hard 04/08/2021 [facility] - Occupational [...] on filedocumented in this encounter Care Teams Manager Community Development Relationship Specialty Start Date End Date Thao Zhu D.O. [address] [place] [phone] PCP - General Family Medicine 04/23/19 09/10/23 documented as of this encounter
--- OUTSIDE RECORDS SUMMARY | 2023-11-12 12:39 | XMS_ITS | Patient Health Record ---
Author Organization [facility] - Primary Address [address] [place] [id number] Care Team Providers Care Business Process Expert Name Role Phone Different, PCP Primary Care Provider Jared Watts Unavailable [phone] ALLERGIES Allergen (clinical drug ingredient) Drug/Non Drug [...] chronic (F43.12) Active confirmed Posttraumatic stress disorder (02310143) Problem Headache, unspecified (R51.9) Active confirmed Headache (47597683) Encounters Encounter Location Date Provider Diagnosis [facility] [address] [place] [address] 12/22/2022 Jared Pratt Post-traumatic stress disorder, chronic F43.12 ASSESSMENTS Encounter Date Diagnosis Assessment Notes Treatment Notes Treatment Clinical Notes 12/22/2022 Post-traumatic stress disorder, chronic (ICD-10 - F43.12) Records reviewed with pt. Improved with cannabis. Recertified for medical cannabis on [facility] cannabis website according to [place] law PLAN OF TREATMENT Next Appt Details Provider Name:Jared Pratt , 12/21/2023 11:30:00 AM, [address] [place], [address], Insurance Providers Payer Name Payer Address Payer Phone Subscriber Number Group Number Insured Name Patient Relationship to Insured Coverage Start Date Coverage End Date [employer] [address] [address] [place] [address] [id number] Korina Soto Self - patient is the insured MEDICAL (GENERAL) HISTORY Medical History History ICD Code anxiety PTSD sleep apnea Hypothyroidism depression insomnia allergies parkinson's disease Surgical History Surgery Date(Month/Year) colonoscopy 11/2022
--- OUTSIDE RECORDS SUMMARY | 2023-11-12 12:39 | XMS_ITS | Encounter Summary ---
Author Organization [facility] Address [address] [place] [address] Care Team Providers Care Cut Off Saw Operator Name Role Phone Thao Zhu D.O. Primary Care Provider Encounter Details Date Type Department Care Team (Late st Contact Info) Description 08/15/2023 Orders Only [facility] Thao Zhu D.O. [address] [place] [address] Hypothyroidism Social History Tobacco Use Types Packs/Day Years [...] How often do you attend chur or congregational services? Patient declined 04/08/2021 Do you belong to any clubs o r organizations such as zoroastrian groups, unions, fraGuanri or athletic groups, or school groups? No [...] place to sleep or slept in a nursing home (including now)? No 04/08/2021 Nutrition Answer Date [...] as of this encounter Visit Diagnoses Diagnosis Hypothyroidism documented in this encounter Care Teams Cut Off Saw Operator Relationship Specialty Start Date End Date Thao Zhu D.O. [address] [place] [phone] PCP - General Family Medicine 04/23/19 09/10/23 documented as of this encounter
--- OUTSIDE RECORDS SUMMARY | 2023-11-12 12:39 | XMS_ITS ---
Author Organization [facility] Address [address] [place] [address] Care Team Providers Care [employer] Name Role Phone Unavailable Unavailable Unavailable Surgery Details Not on file Complications Check Surgery Details section. Procedure Estimated Blood Loss Check Surgery Details section. Procedure Findings Check Surgery Details section. Procedure Specimens Taken Check Surgery Details section.
--- OUTSIDE RECORDS SUMMARY | 2023-11-12 12:39 | XMS_ITS | Clinical Summary ---
Author Organization [facility] Address [address] [place] [address] Care Team Providers Care Home Theater Experience Expert Name Role Phone Elsewhere, Pcp Primary Care Provider Unavailabl e Source Comments Patient records contain information from all sites at [facility]. For routine questions regarding patient records, call [phone] during business hours, M-F 8:00 AM - 5:00 PM Central Time. Record requests for emergency care only can be directed to [phone] at any time.[facility] Allergies Active Allergy Reactions Criticality Noted Date [...] (05/25/2021): Added automatically from request for surgery [id number] Body Mass Index 35.0 To 35.9 Adult 08/26/2020 Pain Sacroiliac 08/26/2020 Myalgia 08/26/2020 Pain Low Back Unspecified 08/26/2020 Adjustment Disorder With Depressed Mood 09/11/19 20 Degeneration Disc Cervical 10/10/2018 Overview (10/08/2020): MRI 2011 mild disc buldge at C5-6 MRI 2012 mild disc buldge at C5-6 Other Chronic Sinusitis 09/26/2018 Posttraumatic Stress Disorder Brief 01/18/2018 Other Alf Current Drug Therapy 07/28/2016 Overview (10/08/2020): Signed: [...] 09/11/2023 Clinical Communication Department of Family Medicine, [facility], in [place], [place] [address] [phone] Thao Zhu, Ivan 08/15/2023 Orders Only [facility] PCP [facility] Thao Zhu D.O. Hypothyroidism 08/14/2023 Orders Only [facility] [place] [address] [place] [phone] Viv Lloyd from Last 3 Months Immunizations Name Administration [...] How often do you attend chur or hindu services? Patient declined 04/08/2021 Do you belong to any clubs o r organizations such as sikhism groups, unions, fraternal or athletic groups, or [...] housing, medical care, and heating? Hard 04/08/2021 [facility] - [...] place to sleep or slept in a jail (including now)? No 04/08/2021 Nutrition Answer Date [...] T Respiratory Rate 20 05/05/2021 2:12 PM BEAN WEIGHER Oxygen Saturation 98% 06/16/2021 8:55 PM CDT Inhaled Oxygen Concentration - - Weight 72 kg (158 lb 13.5 oz) 06/29/2021 8:25 AM CDT Height 157.5 cm (5' 2) 11/05/2019 1:39 PM CDT Body Mass Index 29.05 11/05/2019 1:39 PM CDT Plan of Treatment Health Maintenance Due Date Last Done Comments CT Colonography 1972 Cologuard 1972 FIT 1972 HIV Screening 1972 Hepatitis C Screening 1972 Mammogram 1972 Pneumococcal vaccine (0-64 y ears) (1 of 2 - PCV) 1978 Hepatitis A Vaccines (1 of 2 - Risk 2-dose series) 09/29/1991 Hepatitis B Vaccines (1 of 3 - 19+ 3-dose series) 09/29/1991 Cervical Cancer Screening 11/29/2020 11/29/2017 Tobacco Cessation counseling 06/16/2022 06/16/2021, 10/08/2020 DTaP,Tdap,and Td Vaccines (1 - Tdap) 06/29/2022 06/28/2022 Zoster Vaccines (1 of 2) 2022 Lipid (Cholesterol) Screening 02/28/2023 02/28/2022 Thyroid Stimulating Hormone (TSH) test for thyroid function 02/28/2023 02/28/2022, 04/13/2021, 10/08/2018, Additional history exists Depression Screening (Annual PHQ-2) 03/13/2023 COVID-19 Vaccine (5 - 2022-2 4 season) 2023 04/29/2022, 05/26/2021, 06/30/2020, Additional history exists Influenza Vaccine (#1) 2023 , 03/08/2021, 01/27/2020, Additional history exists Fasting Glucose for Diabetes Screening 09/19/2025 09/19/2022, 02/28/2022, 05/05/2021, Additional history exists Colonoscopy 09/22/2032 09/22/2022 Colorectal Cancer Screening 09/22/2032 Procedures Procedure Name Priority Date/Time Associated Diagnosis Comments COMPREHENSIVE METABOLIC PANEL, S/P STAT 05/05/2021 3:03 PM BEAN WEIGHER THYROID-STIMULATING HORMONE-SENSITIVE (S-TSH) STAT 04/13/2021 5:56 PM BEAN WEIGHER from Last 3 Months or Most Recently Relevant to Health Maintenance Results * (ABNORMAL) Comprehensive Metabolic Panel (05/05/2021 3:03 PM BEAN WEIGHER) Pathologist [facility] Potassium, P 3.7 3.6 - 5.2 mmol/L 05/05/2021 3:29 PM BEAN WEIGHER SEGUNDO Sodium, P 136 135 - 145 mmol/L 05/05/2021 3:29 PM BEAN WEIGHER SEGUNDO Chloride, P 104 98 - 107 mmol/L 05/05/2021 3:29 PM BEAN WEIGHER SEGUNDO Bicarbonate, P 20(L) 22 - 29 mmol/L 05/05/2021 3:29 PM BEAN WEIGHER SEGUNDO Anion Gap, P 12 7 - 15 05/05/2021 3:29 PM BEAN WEIGHER SEGUNDO BUN (Blood Urea Nitrogen), P 13 6 - 21 mg/dL 05/05/2021 3:29 PM BEAN WEIGHER SEGUNDO Creatinine 0.71 0.59 - 1.04 mg/dL 05/05/2021 3:29 PM BEAN WEIGHER SEGUNDO eGFR-Black/ >90 >=60 mL/min/BS A 05/05/2021 3:29 PM BEAN WEIGHER SEGUNDO Comment: ----ADDITIONAL INFORMATION---- Estimated GFR calculated using the 2009 CKD_EPI creatinine equation. eGFR Non-Black/ >90 >=60 mL/min/BS A 05/05/2021 3:29 PM BEAN WEIGHER SEGUNDO Comment: ----ADDITIONAL INFORMATION---- Estimated GFR calculated using the 2009 CKD_EPI creatinine equation. Calcium, Total, P 8.4(L) 8.6 - 10.0 mg/dL 05/05/2021 3:29 PM BEAN WEIGHER SEGUNDO Glucose, P 90 70 - 140 mg/dL 05/05/2021 3:29 PM BEAN WEIGHER SEGUNDO Protein, Total, P 6.0(L) 6.3 - 7.9 g/dL 05/05/2021 3:29 PM BEAN WEIGHER SEGUNDO Albumin, P 3.4(L) 3.5 - 5.0 g/dL 05/05/2021 3:29 PM BEAN WEIGHER SEGUNDO Aspartate Aminotransferase (AST), P 32 8 - 43 U/L 05/05/2021 3:29 PM BEAN WEIGHER SEGUNDO Alkaline Phosphatase, P 85 35 - 104 U/L 05/05/2021 3:29 PM BEAN WEIGHER SEGUNDO Alanine Aminotransferase (ALT), P 20 7 - 45 U/L 05/05/2021 3:29 PM BEAN WEIGHER SEGUNDO Bilirubin, Total, P 0.3 <=1.2 mg/dL 05/05/2021 3:29 PM BEAN WEIGHER SEGUNDO Blood (Blood, Venous) 05/05/2021 3:03 PM BEAN WEIGHER 05/05/2021 3:11 PM BEAN WEIGHER Tyra Ramos P.A.-C., M.S. LAB BLOOD ADD-ON Performing Organization Address City/[facility]/ZIP Co de Phone Number [facility] [address] [place] [phone], [place] SEGUNDO [facility]- [address] [address] * S-TSH (Thyroid-Stimulating Hormone - Sensitive) (04/13/2021 5:56 PM BEAN WEIGHER) TSH, Sensitive 0.8 0.3 - 4.2 mIU/L 04/13/2021 7:29 PM BEAN WEIGHER AUST Blood (Blood, Venous) 04/13/2021 5:56 PM BEAN WEIGHER 04/13/2021 6:15 PM BEAN WEIGHER Panchito Meade P.A.-C., P.A., M.S. LAB BLO OD ADD-ON [facility] [address] [place] [address], [place] A[place] [facility] [address] [place] [address] from Last 3 Months or Most Recently Relevant to Health Maintenance Care Teams Home Theater Experience Expert Relationship Specialty Start Date End Date Elsewhere, Pcp PCP - General Internal Medicine 09/11/23
--- OUTSIDE RECORDS SUMMARY | 2023-11-12 12:39 | XMS_ITS | Encounter Summary ---
Author Organization [facility] Address [address] [place] [address] Care Team Providers Care Vault Person Name Role Phone Thao Zhu D.O. Primary Care Provider [phone] Reason for Referral * Medication Prior Authorization - Closed Specialty Diagnoses / Procedures Referred By Marbella branham Referred To Contact Terri Dominguez APRN, C.N.P. [address] [place] [phone] Referral ID Status Reason Start Date Expiration Date Visits Re quested Visits Authorized [id number] Closed 1 1 Reason for Visit * Reason Comments Hair/Scalp Problem Prurigo Nodularis * Outpatient (Routine) - Closed Specialty Diagnoses / Procedures Referred By Marbella branham Referred To Contact Dermatology Terri Dominguez APRN, C.N.P. [address] [phone] [facility] Region Referral ID Status Reason Start Date Expiration Date Visits Re quested Visits Authorized [id number] Closed 06/22/2023 12/21/2024 1 1 Encounter Details Date Type Department Care Team (Late st Contact Info) Description 08/04/2023 2:00 PM CDT Office Visit Department of Family Medicine, [facility], in [place], [place] [address] [place] [address] Terri Dominguez APRN, C.N.P. [address], [place] [address] Prurigo Nodularis (Primary Dx); Pruritus Scalp Social History Tobacco Use Types Packs/Day Years [...] any clubs o r organizations such as orthodox groups, unions, fraternal or athletic groups, or [...] housing, medical care, and heating? Hard 04/08/2021 [facility] - Occupational [...] Notes * Terri Dominguez APRN, C.N.P. - 08/04/2023 2:00 PM CDT SUBJECTIVE CHIEF COMPLAINT / REASON FOR VISIT Hair/Scalp Problem (Prurigo Nodularis). HISTORY OF PRESENT ILLNESS Korina Soto is a 52 y.o. 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 Her last visit was on June 22, 2023. That time many of the lesions were injected with intralesional Kenalog. She reports that the lesions did not seem to improve much. She feelsthat the ketoconazole shampoo, clindamycin, and clobetasol when more helpful. She ran out of her clindamycin and is needing a refill. She is very frustrated as these are very itchy and bothersome. Per nursing notes: Chief Complaint (Reason for visit): Prurigo Nodularis How long has lesion(s) been present, any symptoms (pain, bleeding, or itching)? : several years Was patient referred, self referred, or a returning derm patient? : returning 1 mo Personal or family history of skin cancer or other skin condition? : grandpa with skin cancer and grandma with skin issues Any other skin [...] Prurigo Nodularis with the extensive pruritus The chronic nature of condition was discussed with patient and after discussing treatment options including phototherapy and dupilumab (Dupixent) she would like to try dupilumab. Patient was prescribed dupilumab. She is to give 600 mg (2- 300mg syringes) on day 1 then 300 mg on day 15, then 300 mg every other week. Nursing provided instructions regarding injection. Explained to patient that she is not to receive any live vaccinations while on dupilumab, should see eye doctor if she is having eye problems including eye pain or changes in vision, and to call our office if she experiences cold sores. Also, discussed rare side effect of allergic reaction. Patient verbalized understanding. Advised follow up after 3-4 months. PATIENT EDUCATION Ready to learn, no apparent learning barriers were identified; learning preferences include listening. Explained diagnosis and treatment plan; patient expressed understanding of the content. This note represents shared documentation between the assisting nurse and the encounter provider. The content has been reviewed and edited as needed by the provider. documented in this encounter Plan of Treatment Not on file documented as of this encounter Visit Diagnoses Diagnosis Prurigo Nodularis- Primary Pruritus Scalp documented in this encounter Care Teams Vault Person Relationship Specialty Start Date End Date Thao Zhu D.O. [address] [phone] PCP - General Family Medicine 04/23/19 09/10/23 documented as of this encounter
--- OUTSIDE RECORDS SUMMARY | 2023-11-12 12:39 | XMS_ITS | Clinical Summary ---
Author Organization [facility] Address [place], [place] [address] Care Team Providers Care Operational Test Mechanic Name Role Phone Montana Lomeli MD Unavailable [phone] Leyla Sands DO Primary Care Provider [phone] Allergies Active Allergy Reactions Criticality Noted Date [...] reaction). 2 mL 2 05/29/19 14 Active melatonin 3 mg tabletIndications:S leep concern [...] two times daily. 180 Each 3 04/29/19 23 Active meclizine chewable (ANTIVERT) 25 mg tabletIndications:O ther migraine without status migrainosus, not intractable Chew 1 Tablet (25 mg) by mouth 2 times daily if needed (dizziness). 90 Tablet 1 04/29/19 23 Active mupirocin (BACTROBAN OINTMENT) ointment As directed 05/30/19 23 Active levothyroxine (SYNTHROID) 125 mcg tabletIndications:A cquired hypothyroidism Take 1 Tablet (125 mcg) by mouth once daily. Best if taken on empty stomach. 90 Tablet 1 08/27/19 23 Active LORazepam (ATIVAN) 1 mg tablet Take 1 Tablet by mouth at bedtime. [facility] 06/29/19 23 Active ondansetron (ZOFRAN) 8 mg tabletIndications:N ausea and vomiting, unspecified vomiting type Take 1 Tablet (8 mg) by mouth every 8 hours if needed for Nausea/Vomiting. 8 Tablet 2 12/21/19 23 Active cloNIDine HCL (CATAPRES) 0.1 mg tabletIndications:P sychophysiological insomnia TAKE 1 TABLET(0.1 MG) BY MOUTH THREE TIMES DAILY 270 Tablet 03/01/20 23 Active primidone (MYSOLINE) 50 mg tabletIndications:E ssential tremor TAKE 1 TABLET BY MOUTH DAILY AT BEDTIME 30 Tablet 05/01/19 24 Active ketoconazole 2% shampoo (NIZORAL) 2 % shampooIndications: Scalp dermatophytosis Shampoo the hair every other day. 120 mL 04/28/19 24 Active tiZANidine (ZANAFLEX) 2 mg tabletIndications:L [...] once daily. 60 Capsule 06/28/19 24 Active busPIRone (BUSPAR) 30 mg tabletIndications:P TSD (post-traumatic stress disorder) Take 1 Tablet (30 mg) by mouth two times daily. 60 Tablet 2 07/12/19 24 Active benzoyl peroxide 10% topical (CLEARASIL) 10 % gelIndications:Prur igo nodularis Apply topically to affected area(s) every morning. Daily routine for prurigo nodularis. 90 g 3 07/17/19 24 Active montelukast (SINGULAIR) 10 mg tabletIndications:M ild persistent asthma without complication,Season al allergic rhinitis due to pollen TAKE 1 TABLET(10 MG) BY MOUTH AT BEDTIME 90 Tablet 09/09/19 24 Active clindamycin phosphate 1% topical 1 % external solutionIndications :Prurigo nodularis Apply topically to affected area(s) two times daily. To scalp. Daily routine for prurigo nodularis. 60 mL 1 10/06/19 24 Active clobetasol 0.05 % gelIndications:Prur igo nodularis Apply topically to affected area(s) two times daily. As needed to scalp for itch related to prurigo nodularis 30 g 10/06/19 24 Active hydrOXYzine HCL (ATARAX) 25 mg tabletIndications:P ruritic condition Take 1 Tablet (25 mg) by mouth every 6 hours if needed for Itching. 40 Tablet 1 10/06/19 24 Active omeprazole (PRILOSEC) 20 mg Delayed-Release capsuleIndications: Gastroesophageal reflux disease, unspecified whether esophagitis present,Hiatal hernia TAKE 1 CAPSULE(20 MG) BY MOUTH TWICE DAILY BEFORE MEALS 180 Capsule 10/31/19 24 Active omeprazole (PRILOSEC) 20 mg Delayed-Release capsuleIndications: Gastroesophageal reflux disease, unspecified whether esophagitis present,Hiatal hernia TAKE 1 CAPSULE(20 MG) BY MOUTH TWICE DAILY BEFORE MEALS 180 Capsule 07/26/19 24 024 Discontinued Active Problems Problem Noted Date Diagnosed Date Prurigo nodularis 07/18/2023 Overview: Chronic scalp lesions with excoriations. Scalp lesions present for over 10 years per chart review. Multiple visit to clinic and emergency department. Seen on 06/22/2023 by dermatology who suspects prurigo nodularis - recommended clindamycin/benzoyl peroxide, intralesional steroids and clobetasol. Treatment is often hygiene and avoidance of picking. Patient is convinced this remains MRSA (likely carrier) and only long-term antibiotics will treat it. She has never had routine in treatment. Patient does have celiac disease. There are many skin manifestations of celiac disease, unclear if she follows a strict gluten free diet. Depression, recurrent 04/29/2022 Personality disorder 02/28/2022 Overweight [...] Leg cramps 04/20/2010 Anemia, iron deficiency 04/20/2010 Migraine 05/15/2009 Urticaria, unspecified 02/01/2008 Overview: Angioedema from raspberries Unspecified hypothyroidism 09/25/2007 Moderate persistent asthma without complication 07/23/2007 Overview: Mild intermittent Other tear of cartilage or meniscus of knee, cur rent 04/04/2007 Overview: pt has opted to not have surgery Reflux esophagitis 12/26/2006 Diaphragmatic hernia without mention of obstruction or gangrene 12/26/2006 Resolved Problems Problem Noted Date Diagnosed Date Resolved Date Change in bowel habits 09/22/202207/17 Simple chronic bronchitis 04/29/2022 Severe recurrent depression with psychosis 05/09/2014 06/13/2014 Anxiety state, unspecified 05/30/2012 0 10/17/2012 Cystic acne 08/20/2009 07/18/2023 Other acne 02/01/2008 07/18/2023 Severe obesity (BMI >= 40) 04/04/2007 0 07/12/2021 Generalized anxiety disorder 02/13/2007 10/13/2015 Migraine, unspecified, witho ut mention of intractable migraine without mention of status migrainosus 05/15/2009 Overview: Hx of migraines Encounters Date Type Department Care Team Description 11/03/2023 Refill [facility] [address] [place] [address] Avril Stephen MD Refill Request (Fluoxetine) 10/29/2023 Refill [facility] [address] [place] [address] Leyla Sands DO Refill Request (Omeprazole) 10/17/2023 10:15 AM CDT Office Visit [facility] [address] [place] [address] Abby Coleman MD ER Follow up (pneumonia ); Cough (cough, SOB); Derm Problem (Scalp infection. ); Pneumonia (states oxygen was in the 70s in the ER and thinks its low today. ) 10/16/2023 Travel 10/13/2023 7:06 PM CDT - 10/13/2023 7:07 PM CDT Emergency [facility] [address] [place] [address] Candi Omer NP Discharge Disposition: Against Medical Advice or Discontinued Care 10/13/2023 Travel 10/06/2023 8:22 PM CDT - 10/06/2023 10:40 PM CDT Emergency [facility] [address] [place] [address] Abby Pantoja MD Pneumonia of right lower lobe due to infectious organism (Primary Dx); Prurigo nodularis; Pruritic condition Discharge Disposition: Home Self Care 10/06/2023 Travel 09/30/2023 Refill [facility] [address] [place] [address] Avril Stephen MD Refill Request (Fluoxetine) 2023 10:25 AM CDT Office Visit [facility] [address] [place] [address] Bradly Rod MD Concerns (Itchy scalp, lesions, seen on 04/27/23 for same) 2023 Travel 09/07/2023 Refill [facility] [address] [place] [address] Leyla Sands DO Refill Request (Montelukast) 08/27/2023 Travel from Last 3 Months Immunizations Name Administration Dates Next Due AMB Influenza, IIV3 (Age >=3 years)(Flu Clinic Only) 01/01/2008 AMB Influenza, IIV4 PF (=>6 mos Flulaval,Fluzone Fluarix)(Flu Clinic Only) 01/08/2015 COVID-19 vaccine ([employer] 30mcg/0.3mL) 12YO+ BIVALENT PF, MDV 04/29/2022 COVID-19 vaccine ([employer] 30mcg/0.3mL) 12YO+ NORIS-SUCROSE PF, MDV 05/26/2021 [...] Cancer-prostate Maternal Grandfather Good Health Mother b 1945 Psychiatric illness Mother depressi on Diabetes Sister Anesthesia Problem No Family History Blood Disease No Family History Relation Name Status Comments Brother Alive Father Alive Maternal Aunt Maternal Grandfather Mother Alive Sister Alive Social History Tobacco Use Types Packs/Day Years Used Date Smoking Tobacco: Every Day Cigarettes 0.3 15.7 Started: 2008 Smokeless Tobacco: Never Tobacco Cessation:Ready [...] Outcome GA Total Labor Labor/2nd/3rd Weight Sex Type Anes PTL Merry A1 A5 Name Clin SAB SAB SAB SAB Term Last Filed Vital Signs Vital Sign Reading Time Taken Comments Blood Pressure 111/71 10/17/2023 10:20 AM CDT Pulse 73 10/17/2023 10:20 AM CDT Temperature 36.8 ??C (98.2 ??F) 10/13/2023 5:24 PM CD T Respiratory Rate 18 10/13/2023 5:24 PM CDT Oxygen Saturation 99% 10/17/2023 10:20 AM CDT Inhaled Oxygen Concentration - - Weight 72.6 kg (160 lb) 10/13/2023 5:24 PM CDT Height 157.5 cm (5' 2) 10/13/2023 5:24 PM CDT Body Mass Index 29.26 10/13/2023 5:24 PM CDT Plan of Treatment Health Maintenance Due Date Last Done Comments Mammogram for age 45-75 12/07/2018 09/27/20 18, 10/23/2012, 05/07/2010 Zoster (shingles) series for age 50+ (1 of 2) 2022 COVID-19 vaccine series (5 - 2022- season) 2022 04/29/2022, 05/26/2021, 06/30/2020, Additional history exists Pap test for age 21-65 11/29/2022 8, 11/29/2017, 05/28/2013, Additional history exists Depression screening for age 12+ 09/01/2023 08/31/2022, 08/30/2022, 08/29/2022, Additional history exists Influenza for age 50-64 11/12/2023 04/29/19 23, 04/29/2022, 03/08/2021, Additional history exists BMI (ht and wt on same day) for age 18+ 09/27/2024 2023, 07/17/2023, 04/27/2023, Additional history exists Lipids for age 45-75 02/28/2027 02/28/2022, 10/13/2015, 08/15/2012, Additional history exists Tetanus booster 06/28/2032 06/28/2022, 06/12, 09/19/2007, Additional history exists Colonoscopy through age 75 09/22/2032 09/22/2022 Pneumococcal series for age 6-64 (3 of 3 - PPSV23 or PCV20) 2037 12/23/2016, 03/10/2010 Tdap Completed 07/05/2012, 09/19/2007 HIV for age 15-65 Completed 03/26/2013 Hepatitis C screening for ag e 18-79 Completed 03/26/2013, 03/22/2012 Medical Devices Implanted Type Area Fitter Hand Device Identifier Shelf Expiration Date Model / Serial / Lot Stent Ent Reg Steroid-Releas ing [employer] - [id number] Implanted:Qty: 1 on 01/07/2019 by Eliseo Hansen MD at [facility] ER Ent Implants [employer] one sinus implant 09/01/2019 [id number] / / [id number] Description:Propel One sinus implant Nominal length: 23mm Stent Ent Reg Steroid-Releas ing [employer] Bio[employer] - [id number] Implanted:Qty: 1 on 01/07/2019 by Eliseo Hanesn MD at [facility] ER Ent Implants [employer] one sinus implant 10/14/2019 [id number] / / [id number] Description:Propel One sinus implant Nominal length: 23mm Procedures Procedure Name Priority Date/Time Associated Diagnosis Comments XR CHEST 2 VIEWS PA AND LATERAL STAT 10/06/2023 9:16 PM CDT COLONOSCOPY 09/22/2022 11:27 AM CDT LIPID PANEL W REFLEX MEASURED LDL Routine 02/28/2022 9:23 AM [facility] Mixed hyperlipidemia XR MAMMO BILAT SCREENING Routine 12/07/2017 4:01 PM CDT Visit for screening mammogram RETANNED LEATHER ROLLER THIN PREP PAP SCREEN IMAGED Routine 11/29/2017 11:22 AM CDT Pap smear for cervical cancer screening ANTI HIV 1/2 Routine 03/26/2013 11:54 AM [facility] Screen for STD (sexually transmitted disease) ANTI HCV Routine 03/26/2013 11:54 AM [facility] Screen for STD (sexually transmitted disease) from Last 3 Months or Most Recently Relevant to Health Maintenance Results * XR CHEST 2 VIEWS PA AND LATERAL (10/06/2023 9:16 PM CDT) Anatomical Region Laterality Modality CHEST, THORAX, Lung, HEART Digit al Radiography 10/06/2023 9:25 PM CDT Impressions 10/06/2023 9:25 PM CDT Right lower lobe patchy opacities, likely representing pneumonia. Dictated by Chester Castle MD @ 10/06/2023 9:25:16 PM (Electronically Signed) Narrative 10/06/2023 9:25 PM CDT For Patients: ??As a result of the 21st Century Cures Act, medical imaging exams and procedure reports are released immediately into your electronic medical record. ??You may view this report before your referring provider. ??If you have questions, please contact your health care provider. INDICATION: Cough. TECHNIQUE: Chest 2 views. COMPARISON: 09/19/2022. FINDINGS: Cardiovascular and mediastinum: Heart size and vasculature are normal in caliber and appearance. ?? Lungs and pleural spaces: Right lower lobe patchy opacities. Left lung is clear. No pleural effusions or pneumothorax. Bones and soft tissues: No significant findings. Procedure Note Chester Castle MD - 10/06/2023 For Patients: As a result of the Cures Act, medical imagingexams and procedure reports are released immediately into your electronicmedical record. You may view this report before your referring provider.If you have questions, please contact your health care provider. INDICATION: Cough. TECHNIQUE: Chest 2 views. COMPARISON: 09/19/2022. FINDINGS: Cardiovascular and mediastinum: Heart size and vasculature are normal incaliber and appearance. Lungs and pleural spaces: Right lower lobe patchy opacities. Left lung isclear. No pleural effusions or pneumothorax. Bones and soft tissues: No significant findings. IMPRESSION: Right lower lobe patchy opacities, likely representing pneumonia. Dictated by Chester Castle MD @ 10/06/2023 9:25:16 PM (Electronically Signed) Abby Pantoja MD GENERAL IMAG ING * COLONOSCOPY (09/22/2022 11:27 AM CDT) 09/22/2022 [...] adequate candidate for conscious sedation. The endoscope [id number] was passed through the anus andadvanced to [...] W REFLEX MEASURED LDL (02/28/2022 9:23 AM [facility]) CHOLESTEROL,TOTAL 162 100 - 199 mg/dL 03/01/2022 7:23 AM [facility] TRIGLYCERIDES 128 <150 mg/dL 03/01/2022 7:23 AM [facility] HDL CHOLESTEROL 44 >40 mg/dL 7:23 AM [facility] NON-HDL CHOLESTEROL 118 <145 mg/dl 03/01/2022 7:23 AM [facility] CHOL/HDL RATIO 3.68 <4.50 03/01/2022 7:23 AM [facility] LDL CHOLESTEROL 92 <=130 mg/dL 03/01/2022 7:23 AM [facility] VLDL CHOLESTEROL 26 <=30 mg/dL 03/01/2022 7:23 AM [facility] PROVIDER ORDERED STATUS RANDOM 03/01/2022 7:23 AM [facility] Blood BLOOD SPECIMEN / Unknown Venipuncture / Unknown 02/28/2022 9:23 AM [facility] 02/28/2022 9:23 AM [facility] Bj Noe MD CHEMISTRY [facility] [address] [place] [address], [place] * XR MAMMO BILAT SCREENING (12/07/2017 [...] seen. ?? Bj Noe MD MAMMO * RETANNED LEATHER ROLLER THIN PREP PAP SCREEN IMAGED (11/29/2017 11:22 AM CDT) Case Report Gynecologic Cytology Report ? Case: [id number] ? Authorizing Provider: ??Bj Noe MD ??Collected: ? 11/29/2017 1122 ? Ordering Location: ? [facility] ?? Received: ?11/29/2017 1152 ? Clinic ? First Screen: ?Hubert Nicholas ? Specimen: ?RETANNED LEATHER ROLLER ThinPrep Vial Screening, Cervical ? 12/08/2017 2:35 PM CDT [facility] INTERPRETATION/ RESULT NEGATIVE FOR INTRAEPITHELIAL LESION OR MALIGNANCY (NIL) (none) 12/08/2017 2:35 PM CDT [facility] IMEN ADEQUACY Satisfactory for evaluation No endocervical component seen 12/08/2017 2:35 PM CDT [facility] HPV REQUEST HPV and PAP 12/08/2017 2:35 PM CDT [facility] Date of LMP 11/12/17 12/08/2017 2:35 PM CDT [facility] Last Pap Date 05/28/13 12/08/2017 2:35 PM CDT [facility] Last Pap Result NIL 8 2:35 PM CDT [facility] Abnormal Pap or [place] Bx in last 5 years No 12/08/2017 2:35 PM CDT [facility] Menstrual Status Regular Periods 12/08/2017 2:35 PM CDT [facility] [place] Bx Done Today No 12/08/2017 2:35 PM CDT [facility] Additional Information None given 12/08/2017 2:35 PM CDT [facility] Automated Review Successful 12/08/2017 2:35 PM CDT [facility] Comment:Specimen processed s uccessfully by automated truck driver salesperson device, ThinPrep Imaging System, [employer] ANCILLARY TESTING RETANNED LEATHER ROLLER HPV Ordered, Please see separate report 12/08/2017 2:35 PM CDT [facility] Note The pap test is a [...] lesions. Cytology is screened and interpreted at [facility] - [address], [place] [address] and - [address]; [place] [address] and [facility] - [address]; [place] [address] and [facility] [address]; [place] [address] 12/08/2017 2:35 PM CDT [facility] Other (Cervical) Non-Blood / Unknown 11/29/2017 11:22 AM CDT 11/29/2017 11:52 AM CDT Bj Noe MD PATHOLOGY/CYTOLO GY [facility] [address] [place] [address], * ANTI HCV (03/26/2013 11:54 AM [facility]) ANTI HCV Non-reacti ve [facility] Blood specimen (specimen) BLOOD SPECIMEN / Unknown 03/26/2013 11:54 AM [facility] 03/26/2013 11:52 AM [facility] Lupis GOETZ [facility] INTERNAL ZIP [id number] [place] [address] * ANTI HIV 1/2 (03/26/2013 11:54 AM [facility]) ANTI HIV 1/2 Non-reacti ve [facility] Blood specimen (specimen) BLOOD SPECIMEN / Unknown 03/26/2013 11:54 AM [facility] 03/26/2013 11:52 AM [facility] Lupis [facility] INTERNAL ZIP [id number] [place] [address] from Last 3 Months or Most Recently [...] Status Discussion: Per Existing Order Care Teams Operational Test Mechanic Relationship Specialty Start Date End Date Leyla Sands DO [address] [place] [address] PCP - General Family Practice 07/05/22 Montana Lomeli MD Psychiatry 05/28/13
[2023-11-12 12:43] VITALS: BP 117/73; PULSE 72; RESP 16; TEMP 36.7; O2SAT 97
[2023-11-12 12:50] VITALS: BP 117/73; PULSE 72; RESP 18; TEMP 36.7
== END 2023-11-12 12:50 | disposition home or self-care (01) ==
LOC: ED 12:35
PROVIDERS: Emergency Provider Emergency Medicine Emergency Medical Services; PCP Family Medicine
DX: L02.811 Cutaneous abscess of head [any part, except face] (principal)
CPT/HCPCS: 99283; 99284

== ENCOUNTER 2023-12-22 14:49 | Emergency (ER) | payer OTHER, SELFPAY ==
[2023-12-22 15:00] VITALS: BP 109/66; PULSE 68; RESP 18; TEMP 36.6; O2SAT 97; BMI 30.2
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
--- OUTSIDE RECORDS SUMMARY | 2023-12-22 15:34 | XMS_ITS | Encounter Summary ---
Author Name [facility] Organization [facility] Address [address] [place] [address] Care Team Providers Care Occasional Babysitter Name Role Phone JORGITO SHAH Primary Care [...] Patient's Relationship to Policy [facility] ([facility]) MEDICARE ADVANTAGE [facility] ([facility]) Jan 12, 2016 [id number] [phone] SONIA VENCES PATIENT [employer] [facility] ([facility]) MEDICARE [facility] ([facility]) Mar 13, 2020 [id number] SONIA VENCES NNZEUS PATIENT [employer] [facility] ([facility]) MEDICARE [facility] ([facility]) Mar 13, 2020 [id number] [phone] SONIA VENCES PATIENT [employer] [facility] ([facility]) MEDICARE ADVANTAGE [employer] ([facility]) Mar 13, 2020 [id number] SONIA VENCES PATIENT [employer] [facility] ([facility]) MEDICARE ADVANTAGE [facility] ([facility]) Mar 13, 2020 [id number] SONIA VENCES PATIENT [facility] ([facility]) MEDICARE ADVANTAGE MEDIC ARE NATHEN [facility] Mar 13, 2019 [id number] SONIA VENCES PATIENT Selected Encounter This section includes the information on record at OR for the Encounter. Date/Time Encounter Type Encounter Description Reason Pro vider Source Dec 05, 2023 10:30 AM Outpatient Encounter PRIMARY CARE/MEDICINE IHE Encounter Template Text not used by OR Plan of Treatment: Future Appointments (+ 6 months) and Future Tests (+/- 45 days) The Plan of Treatment section includes future care activities for the patient from all OR treatmentfacilities. This section includes future appointments and future orders which are active, pending or scheduled. Future Appointments This section includes appointments that were scheduled to occur 6 months from the date of the Encounter, up to a maximum of 20 appointments. The data comes from all [place] treatment facilities. Appointment Date/Time Appointment Type Appointme nt Facility Name Dec 06, 2023 10:00 AM AMBULATORY - NONE [facility] Social History: Smoking Status (Most current) and Tobacco Use (All prior to encounter date) This section includes the most current, and the historical, smoking and tobacco- related health factors from the OR facility where the Encounter took place. Current Smoking Status This section includes the most current smoking, or tobacco-related health factor, from the OR facility where the Encounter took place. Date/Time Current Smoking Status Comment Facil ity Jun 17, 2015 07:02 AM FORMER TOBACCO USE >1Y <7Y [facility] Tobacco Use History This section includes a history of the smoking, or tobacco-related health factors, that were collected on or before the date of the Encounter. The data comes from the [place] facility where the Encounter took place. Date/Time Smoking Status/Tobacco Use Comment F acility July 30, 2014 09:31 AM FORMER TOBACCO USE <1Y [facility] Encounter Notes: All associated encounter notes This section contains the clinical notes associated to the Encounter. Date/Time Encounter Note(s) Provider Source Dec 05, 2023 10:32 AM REPORT OF CONTACT: LOCAL TITLE: APPOINTMENT SCHEDULING NOTE STANDARD TITLE: REPORT OF CONTACT DATE OF NOTE: DEC 05, 2023@10:32 ENTRY DATE: DEC 05, 2023@10:32:16 AUTHOR: DIOGO GREEN EXP COSIGNER: URGENCY: STATUS: COMPLETED Attempted to schedule Return to clinic (RTC) Contact attempt made to [facility] 1st attempt Telephone 2nd attempt Letter - Sent letter by regular [place] mail to address on file: [place] V[place] [address] [place] [address] [address], [place] [address] Disposition order request after Dec Left message on voice mail to call back to this number [phone] If [facility] calls back, schedule appt for: [facility] BLOOD DRAWING ROOM - #[id number], #[id number] PID /es/ DIOGO GREEN MSA Signed: 12/05/2023 10:34 DIOGO GREEN [facility]
--- OUTSIDE RECORDS SUMMARY | 2023-12-22 15:34 | XMS_ITS | Encounter Summary ---
Author Name [facility] [place] Organization [facility] [place] Address [address] [place] [address] Care Team Providers Care Dental Prosthetist Name Role Phone JORGITO SHAH Primary Care [...] Patient's Relationship to Policy [employer] [facility] [employer] ([facility] MEDICARE ADVANTAGE [facility] ([facility] Jan 12, 2016 [id number] [phone] SONIA VENCES PATIENT [facility] [facility] ([facility] MEDICARE [facility] ([facility] Mar 13, 2020 [id number] SONIA VENCES PATIENT [facility] [facility] ([facility] MEDICARE [facility] ([facility] Mar 13, 2020 [id number] SONIA VENCES PATIENT [facility] [facility] ([facility] MEDICARE ADVANTAGE [facility] ([facility] Mar 13, 2020 [id number] SONIA VENCES PATIENT [facility] [facility] ([facility] MEDICARE ADVANTAGE [facility] ([facility] Mar 13, 2020 [id number] RUSONIA MANUEL PATIENT [facility] ([facility] MEDICARE ADVANTAGE MEDIC [facility] Mar 13, 2019 [id number] RUSONIA FLORIAN PATIENT Selected Encounter This section includes the information on record at ME for the Encounter. Date/Time Encounter Type Encounter Description Reason Provider Source Jul 07, 2023 08:46 AM Outpatient Encounter ADMIN PAT ACTIVTIES (MASNONCT) LORRAINE COOK Encounter Template Text not used by ME Plan of Treatment: Future Appointments (+ 6 months) and Future Tests (+/- 45 days) The Plan of Treatment section includes future care activities for the patient from all [place] [facility]. This section includes future appointments and future orders which are active, pending or scheduled. Future Appointments This section includes appointments that were scheduled to occur 6 months from the date of the Encounter, up to a maximum of 20 appointments. The data comes from all [place] treatment facilities. Appointment Date/Time Appointment Type Appointme nt Facility Name Aug 23, 2023 03:00 PM AMBULATORY - NONE [facility] Nov 14, 2023 06:06 PM AMBULATORY - NONE [facility] Dec 06, 2023 10:00 AM AMBULATORY - NONE [facility] Social History: Smoking Status (Most current) and Tobacco Use (All prior to encounter date) This section includes the most current, and the historical, smoking and tobacco- related health factors from the ME facility where the Encounter took place. Current Smoking Status This section includes the most current smoking, or tobacco-related health factor, from the ME facility where the Encounter took place. Date/Time Current Smoking Status Comment Facil ity Jun 17, 2015 07:02 AM FORMER TOBACCO USE >1Y <7Y [facility] Tobacco Use History This section includes a history of the smoking, or tobacco-related health factors, that were collected on or before the date of the Encounter. The data comes from the ME facility where the Encounter took place. Date/Time Smoking Status/Tobacco Use Comment F acility July 30, 2014 09:31 AM FORMER TOBACCO USE <1Y [facility] Encounter Notes: All associated encounter notes This section contains the clinical notes associated to the Encounter. Date/Time Encounter Note(s) Provider Source Jul 11, 2023 08:19 AM ADDENDUM: LOCAL TITLE: Addendum STANDARD TITLE: ADDENDUM DATE OF NOTE: JUL 11, 2023@08:19:45 ENTRY DATE: JUL 11, 2023@08:19:46 AUTHOR: AURA CHISHOLM COSIGNER: URGENCY: STATUS: COMPLETED Lavelle was seen in a Community ED. Records uploaded to chart. Please review and follow up as appropriate. /jose armando/ AURA CHISHOLM .MarieAdvanced Employee Relations Advisor Signed: 07/11/2023 08:19 Receipt Acknowledged By: 07/11/2023 10:39 /es/ Celeste Perry MD Physician for JORGITO SHAH 07/11/2023 09:20 /es/ SHIMA HERNANDEZ RN REGISTERED NURSE === --- Original Document --- 07/06/23 [facility] PRESENTING CARE COORD PLAN NOTE: Emergency Notification Intake Date Presenting to the Facility: Jun Method of Contact: Notified from [employer] worklist Notification ID: [id number] [facility] Referral #: [facility] Hospital Name: Hospital: [facility] Address: City: [place] State: [place] Zip Code: Phone : Community Facility Point of Contact: Name: GAMAL Chief complaint: SCALP INFECTION Primary Diagnosis: Disposition Unknown at time of intake note entry /es/ FLAKITA [facility] FORMING MACHINE UPKEEP MECHANIC HELPER Signed: 07/07/2023 08:52 Receipt Acknowledged By: 07/07/2023 11:42 /es/ Lorraine Cook ORE DRYER drupal architect Digital Media Designer 07/07/2023 ADDENDUM STATUS: COMPLETED Records requested and will be uploaded via E[employer] when received. /es/ CRISTY LANDIN ADVANCED EQUITIES TRADER Signed: 07/07/2023 15:17 Receipt Acknowledged By: 07/07/2023 15:34 /es/ SHIMA HERNANDEZ RN REGISTERED NURSE 07/06/2023 ADDENDUM STATUS: COMPLETED [facility] Scanned Document - Addendum. ED records 07/06/2023 [facility] SCANNED DOCUMENT SIGNATURE NOT REQUIRED Electronically Filed: 07/11/2023 by: AURA CHISHOLM .MarieAdvanced Employee Relations Advisor 07/11/2023 ADDENDUM STATUS: UNSIGNED You may not VIEW this UNSIGNED Addendum. AURA CHISHOLM [facility] Jul 07, 2023 03:17 PM ADDENDUM: LOCAL TITLE: Addendum STANDARD TITLE: ADDENDUM DATE OF NOTE: JUL 07, 2023@15:17:03 ENTRY DATE: JUL 07, 2023@15:17:05 AUTHOR: OSWALDO YEN EXP COSIGNER: URGENCY: STATUS: COMPLETED Records requested and will be uploaded via [employer] when received. /jose armando/ CRISTY LANDIN ADVANCED EQUITIES TRADER Signed: 07/07/2023 15:17 Receipt Acknowledged By: 07/07/2023 15:34 /es/ SHIMA HERNANDEZ RN REGISTERED NURSE === --- Original Document --- 07/06/23 [facility] SELF PRESENTING CARE COORD PLAN NOTE: Emergency Notification Intake Date Presenting to the Facility: Jun Method of Contact: Notified from [facility] worklist Notification ID: [id number] [facility] Referral #: [facility] Hospital Name: Hospital: [facility] Address: City: [place] State: [place] Zip Code: Phone : [facility] Facility Point of Contact: Name: GAMAL Chief complaint: SCALP INFECTION Primary Diagnosis: Disposition Unknown at time of intake note entry /jose armando/ FLAKITA [facility] FORMING MACHINE UPKEEP MECHANIC HELPER Signed: 07/07/2023 08:52 Receipt Acknowledged By: 07/07/2023 11:42 /es/ Lorraine Cook RN BSN drupal architect Digital Media Designer OSWALDO YEN [facility] Jul 06, 2023 08:47 AM NONVA NOTE: [...] Contact: Notified from ECR worklist Notification ID: [id number] [facility] Referral #: [facility] Name: Hospital: [facility] Address: City: [place] State: [place] Zip Code: Phone : Community Facility Point of Contact: Name: GAMAL Chief complaint: SCALP INFECTION Primary Diagnosis: Disposition Unknown at time of intake note entry /jose armando/ FLAKITA [facility] FORMING MACHINE UPKEEP MECHANIC HELPER Signed: 07/07/2023 08:52 Receipt Acknowledged By: 07/07/2023 11:42 /jose armando/ Lorraine Cook, ORE DRYER drupal architect Digital Media Designer 07/07/2023 ADDENDUM STATUS: COMPLETED Records requested and will be uploaded via [employer] when received. /jose armando/ CRISTY LANDIN ADVANCED EQUITIES TRADER Signed: 07/07/2023 15:17 Receipt Acknowledged By: 07/07/2023 15:34 /es/ SHIMA HERNANDEZ RN REGISTERED NURSE 07/06/2023 ADDENDUM STATUS: COMPLETED [facility] Scanned Document - Addendum. ED records 07/06/2023 [facility] SCANNED DOCUMENT SIGNATURE NOT REQUIRED Electronically Filed: 07/11/2023 by: AURA CHISHOLM .MarieAdvanced Employee Relations Advisor 07/11/2023 ADDENDUM STATUS: COMPLETED was seen in a Community ED. Records uploaded to chart. Please review and follow up as appropriate. /jose armando/ AURA CHISHOLM .MarieAdvanced Employee Relations Advisor Signed: 07/11/2023 08:19 Receipt Acknowledged By: 07/11/2023 10:39 /es/ Celeste Perry MD Physician for JORGITO SHAH 07/11/2023 09:20 /jose armando/ SHIMA HERNANDEZ, RN REGISTERED NURSE 07/11/2023 ADDENDUM STATUS: COMPLETED She was seen for cellulitis of scalp, associated with chronic skin lesions. She was treated with Bactrin and cephalexin. She also had URX sxs, for which supportive cares were recommended. F/u with PCP PRN. /jose armando/ Celeste Perry MD Physician Signed: 07/11/2023 10:41 [facility]
--- OUTSIDE RECORDS SUMMARY | 2023-12-22 15:34 | XMS_ITS | Encounter Summary ---
Author Name [facility] [place] [facility] [place] Address [address] [place] [address] Care Team Providers Care French Folder Name Role Phone JORGITO GRANADOS Primary Care Provider Unavail able Insurance Providers: [...] Patient's Relationship to Policy [employer] [facility] [employer] ([facility]) MEDICARE ADVANTAGE MCR ([facility]) Jan 12, 2016 [id number] [phone] SONIA VENCES PATIENT [facility] [facility] ([facility]) MEDICARE [facility] ([facility]) Mar 13, 2020 [id number] SONIA VENCES PATIENT [facility] [facility] ([facility]) MEDICARE [facility] ([facility]) Mar 13, 2020 [id number] SONIA VENCES PATIENT [facility] [facility] ([facility]) MEDICARE ADVANTAGE MCR ([facility]) Mar 13, 2020 [id number] [phone] SONIA VENCES PATIENT [facility] [facility] ([facility]) MEDICARE ADVANTAGE MCR (WNR) Mar 13, 2020 [id number] RUSONIA MANUEL PATIENT [facility] (WNR) MEDICARE ADVANTAGE MEDIC [facility] Mar 13, 2019 [id number] RUSONIA FLORIAN PATIENT Selected Encounter This section includes the information on record at [place] for the Encounter. Date/Time Encounter Type Encounter Description Reason Provider Source Nov 14, 2023 06:06 PM Outpatient Encounter ADMIN PAT ACTIVTIES (MASNONCT) LORRAINE COOK Encounter Template Text not used by NE Plan of Treatment: Future Appointments (+ 6 months) and Future Tests (+/- 45 days) The Plan of Treatment section includes future care activities for the patient from all [place] [facility]. This section includes future appointments and future orders which are active, pending or scheduled. Future Appointments This section includes appointments that were scheduled to occur 6 months from the date of the Encounter, up to a maximum of 20 appointments. The data comes from all [facility]. Appointment Date/Time Appointment Type Appointme nt Facility Name Dec 06, 2023 10:00 AM AMBULATORY - NONE [facility] Active, Pending, and Scheduled Orders This section includes a listing of several types of active, pending, and scheduled orders, including clinic medications orders, diagnostic test orders, procedure orders and consult orders; where the start date of the order is 45 days before the date of the Encounter or 45 days after the date of theEncounter. The data comes from all [facility]. Test Date/Time Test Type Test Details Facility Name Oct 05, 2023 12:00 AM Laboratory - Chemi stry Order TSH W/REFLEX TO FREE T4 PLASMA SP ONCE [facility] Oct 05, 2023 12:00 AM Laboratory - Chemi stry Order TSH W/REFLEX TO FREE T4 PLASMA SP ONCE [facility] Social History: Smoking Status (Most current) and Tobacco Use (All prior to encounter date) This section includes the most current, and the historical, smoking and tobacco- related health factors from the [place] facility where the Encounter took place. Current Smoking Status This section includes the most current smoking, or tobacco-related health factor, from the [place] facility where the Encounter took place. Date/Time Current Smoking Status Comment Facil ity Jun 17, 2015 07:02 AM FORMER TOBACCO USE >1Y <7Y [facility] Tobacco Use History This section includes a history of the smoking, or tobacco-related health factors, that were collected on or before the date of the Encounter. The data comes from the [place] facility where the Encounter took place. Date/Time Smoking Status/Tobacco Use Comment Mejia salamanca July 30, 2014 09:31 AM FORMER TOBACCO USE <1Y [facility] Encounter Notes: All associated encounter notes This section contains the clinical notes associated to the Encounter. Date/Time Encounter Note(s) Provider Source Nov 20, 2023 07:52 AM ADDENDUM: LOCAL TITLE: Addendum STANDARD TITLE: ADDENDUM DATE OF NOTE: NOV 20, 2023@07:52:05 ENTRY DATE: NOV 20, 2023@07:52:06 AUTHOR: JORGITO GRANADOS COSIGNER: URGENCY: STATUS: COMPLETED Pt known to [place] derm. ----> PACT RN: <---- please see how patient is doing after ER appt. She can call [place] derm to arrange FU for her scalp issues /es/ Jorgito Granados MD Physician Signed: 11/20/2023 07:52 Receipt Acknowledged By: 11/20/2023 09:34 /es/ SHIMA HERNANDEZ RN REGISTERED NURSE --- Original Document --- 11/12/23 [facility] SELF PRESENTING CARE COORD PLAN NOTE: Emergency Notification Intake Date Presenting to the Facility: Nov Method of Contact: Notified from ECR worklist Notification ID: [id number] [facility] Referral #: [facility] Name: Hospital: [facility], [place], [place] Address: City: [place] State: [place] Zip Code: Phone : [facility] Facility Point of Contact: Name: [facility] Chief complaint: cough/SOB Primary Diagnosis: Disposition Discharged Date of discharge: Nov Discharge to home Comments: 11/14/2023 1:55:01 PM CDT ISA JAY MATCHED VET TO [place] ADDRESS UPDATED /es/ CAMELIA LY, FARM TRUCK DRIVER Signed: 11/14/2023 18:14 Receipt Acknowledged By: 11/15/2023 08:04 /es/ Lorraine Cook LOFT WORKER ecological technical officer Pharmacy Tech 11/15/2023 ADDENDUM STATUS: COMPLETED Notification acknowledged by RN. Medical and clinical information not reviewed. /es/ Lorraine Cook LOFT WORKER ecological technical officer Pharmacy Tech Signed: 11/15/2023 08:05 11/15/2023 ADDENDUM STATUS: COMPLETED Records have been requested for this episode of care. Alerting PACT RN for awareness. /es/ Lorraine Cook LOFT WORKER ecological technical officer Pharmacy Tech Signed: 11/15/2023 14:14 Receipt Acknowledged By: 11/15/2023 14:22 /es/ SHIMA HERNANDEZ, RN REGISTERED NURSE 11/16/2023 ADDENDUM STATUS: COMPLETED Records requested and will be uploaded via [employer] when received. /es/ AURA Elliott [facility] ...Advanced Information Systems Auditor Signed: 11/16/2023 08:47 11/16/2023 ADDENDUM STATUS: COMPLETED Medical Records Received: Fax [place] was seen in an outside ER on: 11/12/2023 Diagnosis: Abscess of skin or subcutaneous tissue Medical records have been uploaded to the patient's chart and are available for viewing in [facility]. Please review for plan of care and any follow-up needed. /es/ Lorraine Cook LOFT WORKER ecological technical officer Pharmacy Tech Signed: 11/16/2023 14:43 Receipt Acknowledged By: 11/20/2023 07:50 /es/ Jorgito Granados MD Physician 11/16/2023 15:13 /es/ SHIMA HERNANDEZ, RN REGISTERED NURSE 11/12/2023 ADDENDUM STATUS: COMPLETED [facility] Scanned Document - Addendum. [place] ED records SCANNED DOCUMENT SIGNATURE NOT REQUIRED Electronically Filed: 11/16/2023 by: Lorraine Cook LOFT WORKER ecological technical officer Pharmacy Tech 11/20/2023 ADDENDUM STATUS: UNSIGNED You may not VIEW this UNSIGNED Addendum. JORGITO GRANADOS [facility] Nov 16, 2023 02:41 PM ADDENDUM: LOCAL TITLE: Addendum STANDARD TITLE: ADDENDUM DATE OF NOTE: NOV 16, 2023@14:41:56 ENTRY DATE: NOV 16, 2023@14:41:57 AUTHOR: LORRAINE COOK EXP COSIGNER: URGENCY: STATUS: COMPLETED Medical Records Received: Fax [place] was seen in an outside ER on: 11/12/2023 Diagnosis: Abscess of skin or subcutaneous tissue Medical records have been uploaded to the patient's chart and are available for viewing in [employer]. Please review for plan of care and any follow-up needed. /jose armando/ Lorraine Cook LOFT WORKER ecological technical officer Pharmacy Tech Signed: 11/16/2023 14:43 Receipt Acknowledged By: 11/20/2023 07:50 /es/ Jorgito Granados MD Physician 11/16/2023 15:13 /es/ SHIMA HERNANDEZ RN REGISTERED NURSE --- Original Document --- 11/12/23 [facility] SELF PRESENTING CARE COORD PLAN NOTE: Emergency Notification Intake Date Presenting to the Facility: Nov Method of Contact: Notified from [facility] worklist Notification ID: [id number] [facility] Referral #: [facility] Name: Hospital: [place], [place] Address: City: [place] State: [place] Zip Code: Phone : [facility] Facility Point of Contact: Name: [facility] Chief complaint: cough/SOB Primary Diagnosis: Disposition Discharged Date of discharge: Nov Discharge to home Comments: 11/14/2023 1:55:01 PM CDT ISA JAY MATCHED VET TO [facility] ADDRESS UPDATED /es/ CAMELIA LY FARM TRUCK DRIVER Signed: 11/14/2023 18:14 Receipt Acknowledged By: 11/15/2023 08:04 /jose armando/ Lorraine Cook LOFT WORKER ecological technical officer Pharmacy Tech 11/15/2023 ADDENDUM STATUS: COMPLETED Notification acknowledged by RN. Medical and clinical information not reviewed. /jose armando/ Lorraine Cook RN BSN ecological technical officer Pharmacy Tech Signed: 11/15/2023 08:05 11/15/2023 ADDENDUM STATUS: COMPLETED Records have been requested for this episode of care. Alerting PACT RN for awareness. /jose armando/ Lorraine Cook LOFT WORKER ecological technical officer Pharmacy Tech Signed: 11/15/2023 14:14 Receipt Acknowledged By: 11/15/2023 14:22 /jose armando/ SHIMA HERNANDEZ RN REGISTERED NURSE 11/16/2023 ADDENDUM STATUS: COMPLETED Records requested and will be uploaded via [employer] when received. /jose armando/ AURA Elliott [facility] ...Advanced Information Systems Auditor Signed: 11/16/2023 08:47 11/12/2023 ADDENDUM STATUS: COMPLETED [facility] Scanned Document - Addendum. [place] ED records SCANNED DOCUMENT SIGNATURE NOT REQUIRED Electronically Filed: 11/16/2023 by: Lorraine Cook LOFT WORKER ecological technical officer Pharmacy Tech LORRAINE COOK [facility] Nov 15, 2023 02:14 PM ADDENDUM: LOCAL TITLE: Addendum STANDARD TITLE: ADDENDUM DATE OF NOTE: NOV 15, 2023@14:14:18 ENTRY DATE: NOV 15, 2023@14:14:19 AUTHOR: LORRAINE COOK EXP COSIGNER: URGENCY: STATUS: COMPLETED Records have been requested for this episode of care. Alerting PACT RN for awareness. /jose armando/ Lorraine Cook LOFT WORKER ecological technical officer Pharmacy Tech Signed: 11/15/2023 14:14 Receipt Acknowledged By: 11/15/2023 14:22 /jose armando/ SHIMA HERNANDEZ, RN REGISTERED NURSE --- Original Document --- 11/12/23 [facility] PRESENTING CARE COORD PLAN NOTE: Emergency Notification Intake Date Presenting to the Facility: Nov Method of Contact: Notified from [employer] worklist Notification ID: [id number] [facility] Referral #: [facility] Name: Hospital: [place], [place] Address: City: [facility]: [place] Zip Code: Phone : [facility] Point of Contact: Name: [facility] Chief complaint: cough/SOB Primary Diagnosis: Disposition Discharged Date of discharge: Nov Discharge to home Comments: 11/14/2023 1:55:01 PM CDT ISA JAY MATCHED VET TO [facility] ADDRESS UPDATED /khoi LY, FARM TRUCK DRIVER Signed: 11/14/2023 18:14 Receipt Acknowledged By: 11/15/2023 08:04 /khoi Cook LOFT WORKER ecological technical officer Pharmacy Tech 11/15/2023 ADDENDUM STATUS: COMPLETED Notification acknowledged by RN. Medical and clinical information not reviewed. /khoi Cook LOFT WORKER ecological technical officer Pharmacy Tech Signed: 11/15/2023 08:05 LORRAINE COOK [facility] Nov 12, 2023 06:12 PM NONVA NOTE: LOCAL TITLE: [facility]F PRESENTING CARE COORD PLAN STANDARD TITLE: NONVA NOTE DATE OF NOTE: NOV 12, 2023@18:12 ENTRY DATE: NOV 14, 2023@18:12:15 AUTHOR: CAMELIA MITCHELL EXP COSIGNER: URGENCY: STATUS: COMPLETED [facility] PRESENTING CARE COORD PLAN NOTE Has ADDENDA Emergency Notification Intake Date Presenting to the Facility: Nov Method of Contact: Notified from [employer] worklist Notification ID: [id number] Referral #: [facility] Name: Hospital: [place], [place] Address: City: [facility]: [place] Zip Code: Phone : [facility] Point of Contact: Name: [facility] Chief complaint: cough/SOB Primary Diagnosis: Disposition Discharged Date of discharge: Nov Discharge to home Comments: 11/14/2023 1:55:01 PM CDT ISA JAY MATCHED VET TO [place] ADDRESS UPDATED /es/ CAMELIA LY, FARM TRUCK DRIVER Signed: 11/14/2023 18:14 Receipt Acknowledged By: 11/15/2023 08:04 /es/ Lorraine Cook, LOFT WORKER ecological technical officer Pharmacy Tech 11/15/2023 ADDENDUM STATUS: COMPLETED Notification acknowledged by RN. Medical and clinical information not reviewed. /jose armando/ Lorraine Cook LOFT WORKER ecological technical officer Pharmacy Tech Signed: 11/15/2023 08:05 11/15/2023 ADDENDUM STATUS: COMPLETED Records have been requested for this episode of care. Alerting PACT RN for awareness. /jose armando/ Lorraine Cook LOFT WORKER ecological technical officer Pharmacy Tech Signed: 11/15/2023 14:14 Receipt Acknowledged By: 11/15/2023 14:22 /es/ SHIMA HERNANDEZ, RN REGISTERED NURSE 11/16/2023 ADDENDUM STATUS: COMPLETED Records requested and will be uploaded via [employer] when received. /es/ AURA CHISHOLM ...Advanced Information Systems Auditor Signed: 11/16/2023 08:47 11/16/2023 ADDENDUM STATUS: COMPLETED Medical Records Received: Fax was seen in an outside ER on: 11/12/2023 Diagnosis: Abscess of skin or subcutaneous tissue Medical records have been uploaded to the patient's chart and are available for viewing in [facility]. Please review for plan of care and any follow-up needed. /jose armando/ Lorraien Cook LOFT WORKER ecological technical officer Pharmacy Tech Signed: 11/16/2023 14:43 Receipt Acknowledged By: 11/20/2023 07:50 /es/ Jorgito Granados MD Physician 11/16/2023 15:13 /es/ SHIMA HERNANDEZ, RN REGISTERED NURSE 11/12/2023 ADDENDUM STATUS: COMPLETED [facility] Scanned Document - Addendum. [place] ED records SCANNED DOCUMENT SIGNATURE NOT REQUIRED Electronically Filed: 11/16/2023 by: Lorraine Cook, LOFT WORKER ecological technical officer Pharmacy Tech 11/20/2023 ADDENDUM STATUS: COMPLETED Pt known to [place] derm. ----> PACT RN: <---- please see how patient is doing after ER appt. She can call [place] derm to arrange FU for her scalp issues /es/ Jorgito Granados MD Physician Signed: 11/20/2023 07:52 Receipt Acknowledged By: 11/20/2023 09:34 /es/ SHIMA HERNANDEZ RN REGISTERED NURSE 11/20/2023 ADDENDUM STATUS: COMPLETED Attempted to contact pt to see how she is doing and to let her know she can contact Derm as she is known to them. /es/ SHIMA HERNANDEZ RN REGISTERED NURSE Signed: 11/20/2023 09:36 CAMELIA MITCHELL [facility]
--- OUTSIDE RECORDS SUMMARY | 2023-12-22 15:34 | XMS_ITS | Encounter Summary ---
Author Name [facility] [place] [facility] [place] [facility] [place] Address [address] [place] [address] Care Team Providers Care Mobile Tester Name Role Phone JORGITO SHAH Primary Care [...] Policy Morrissey's Name Patient's Relationship to Policy Omrrissey [facility] ([facility]) MEDICARE ADVANTAGE MCR ([facility]) Jan 12, 2016 [id number] [phone] SONIA VENCES PATIENT [facility] [facility] ([facility]) MEDICARE [facility] ([facility]) Mar 13, 2020 [id number] SONIA VENCES PATIENT [facility] ([facility]) MEDICARE ADVANTAGE [facility]CR ([facility]) Mar 13, 2020 [id number] [phone] SONIA VENCES PATIENT [facility] ([facility]) MEDICARE ADVANTAGE MCR ([facility]) Mar 13, 2020 [id number] [phone] SONIA VENCES PATIENT [facility] ([facility]) MEDICARE ADVANTAGE MCR ([facility]) Mar 13, 2020 [id number] SONIA VENCES PATIENT [facility] ([facility]) MEDICARE ADVANTAGE MEDIC [facility] Mar 13, 2019 [id number] SONIA VENCES PATIENT Selected Encounter This section includes the information on record at [place] for the Encounter. Date/Time Encounter Type Encounter Description Reason Provider Source Apr 03, 2023 02:14 PM EMERGENCY DEPT VISIT [facility] EMERGENCY DEPT ICD-10-CM R21 Rash and other nonspecific skin eruption ATIYA ROLLINS [facility] Encounter Template Text not used by [place] Assessments - Encounter Diagnoses This section includes the primary and secondary diagnoses documented for the Encounter. Date/Time Primary/Secondary Diagnosis Diagnosis Name Provider Source Apr 03, 2023 04:36 PM PRIMARY Rash and other nonspecific skin eruption [facility] Apr 03, 2023 04:36 PM SECONDARY Acute cough [facility] Plan of Treatment: Future Appointments (+ 6 months) and Future Tests (+/- 45 days) The Plan of Treatment section includes future care activities for the patient from all [place] treatmentfacilities. This section includes future appointments and future orders which are active, pending or scheduled. Future Appointments This section includes appointments that were scheduled to occur 6 months from the date of the Encounter, up to a maximum of 20 appointments. The data comes from all [place] treatment facilities. Appointment Date/Time Appointment Type Appointme nt Facility Name May 30, 2023 11:00 AM AMBULATORY - SURGERY [facility] Jul 07, 2023 08:46 AM AMBULATORY - NONE [facility] Aug 23, 2023 03:00 PM AMBULATORY - NONE [facility] Vital Signs: All taken on the encounter date This section contains inpatient and outpatient Vital Signs collected on the date of the Encounter. Date/Time Temperature Pulse Blood Pressure Respiratory Rate SP02 Pain Height Weight Body Mass Index Source Apr 03, 2023 03:28 PM 97.7 F 69 /min 99/55 mm[Hg] 15 /min 0 [facility] Social History: Smoking Status (Most current) and Tobacco Use (All prior to encounter date) This section includes the most current, and the historical, smoking and tobacco- related health factors from the [place] facility where the Encounter took place. Current Smoking Status This section includes the most current smoking, or tobacco-related health factor, from the [place] facility where the Encounter took place. Date/Time Current Smoking Status Comment Facil ity Jun 17, 2015 07:02 AM FORMER TOBACCO USE >1Y <7Y [facility] Tobacco Use History This section includes a history of the smoking, or tobacco-related health factors, that were collected on or before the date of the Encounter. The data comes from the [facility] where the Encounter took place. Date/Time Smoking Status/Tobacco Use Comment F acility July 30, 2014 09:31 AM FORMER TOBACCO USE <1Y [facility] Encounter Notes: All associated encounter notes [...] REGISTERED NURSE Signed: 04/03/2023 16:38 KANDACE LINDER [facility] Apr 03, 2023 04:23 PM EMERGENCY [...] be recommended to keep the skin moist. Ancs-hbz-pnuuuvm medicines may also be prescribed to help [...] ROLLINS PA-C Signed: 04/03/2023 16:23 ATIYA ROLLINS [facility] Apr 03, 2023 04:19 PM PHYSICIAN [...] edema Neuro: Alert and oriented, normal speech, organisational psychologist grossly intact, full strength in upper and lower extremities ORDERS: Item Ordered START DATE STOP DATE ENTERED DIPHENHYDRAMINE CAP,OR APR 03, 2023@16:18 Discharge From the [facility] APR 03, 2023 APR 03, 2023@16:17:56 PMH: Active problems - Computerized Problem List is the source for the followin. Recurrent major depressive episodes, severe, with psychosis - suicide attempt/hospitalization [place] 1991 2. Family history of disorder - Fa depression, HT - sister bipolar, hypothyroidism, type 2 DM - Mo - depression - Mat GF prostate cancer 3. 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 H/O: - - vaginal 5. Acne (SNOMED CT 22818702) 6. Closed fracture of fifth metatarsal bone [...] globus pharyngeus 27. 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 health maintenance - 05/28/13 normal [...] aureus infection 34. Suicidal ideation (SNOMED CT 7472678) MEDS: Active Outpatient Medications (including Supplies): Active [...] Remote Allergy/ADR Data available for this patient [facility] OXYCODONE [facility] PREDNISONE [facility] QUETIAPINE [facility] TETRACYCLINE [facility] TRAMADOL [facility] TRAZODONE [facility] VENLAFAXINE FAMILY HISTORY: No relevant SOCIAL [...] ROLLINS PA-C Signed: 04/03/2023 16:26 ATIYA ROLLINS [facility] Apr 03, 2023 04:04 PM NURSING [...] REGISTERED NURSE Signed: 04/03/2023 16:06 KANDACE LINDER [facility] Apr 03, 2023 03:26 PM NURSING [...] major depressive episodes, sevFamily history of disorder ([facility] 394097800) Affective personality trait ([facility] 0119985A/O: ([facility] 630057407) Acne ([facility] 53447144) Closed fracture of fifth metatarsal bone ([facility] 96192035) Gastroesophageal reflux disease (SCT 235Anxiety disorder ([facility] 289036288) Tear of medial meniscus of knee (SCT 302Mild persistent asthma ([facility] 431384055) Hypothyroidism ([facility] 65273084) Celiac disease ([facility] 309299270) Steatosis of liver ([facility] 662873728) Chronic low back pain (SCT 059193606) Nicotine dependence ([facility] 54703010) Schizoaffective disorder (SCT 49298681) Perennial allergic rhinitis (SCT 7507792Enmvjc migraine (SCT 66789158) Cyst of breast (SCT 306396599) Chronic pain syndrome (SCT 888060150) Mixed hyperlipidemia (SCT 720249326) Angioedema of tongue (SCT 515890571) MDD, Recurrent, unspec (ICD-9-CM 296.30)Herpes labialis (SCT 9185456) Acute gastric ulcer (SCT 97543194) Dysphagia ([facility] 57489347) Knee pain ([facility] 4612727638) health maintenance (ICD-10-CM R69.) Lumbar disc prolapse with radiculopathy Morbid obesity ([facility] 441836442) Refractory migraine with aura ([facility] 27783Ojlccglwm of right hip region ([facility] [id number]) History of methicillin resistant StaphylSuicidal ideation ([facility] 6297533) Identification of Seniors at Risk (ISAR):* Defer screen <75 Suicide Screen: [place] Suicide Severity Rating Scale (C-SSRS) screener 1. [...] REGISTERED NURSE Signed: 04/03/2023 15:29 CIRA ARREAGA [facility]
--- OUTSIDE RECORDS SUMMARY | 2023-12-22 15:34 | XMS_ITS | Encounter Summary ---
Author Name [facility] [place] [facility] [place] Address [address] [place] [address] Care Team Providers Care Profiling Machine Setup Operator Name Role Phone JORGITO SHAH Primary Care [...] Patient's Relationship to Policy Morrissey [facility] ([facility]) MEDICARE ADVANTAGE MCR ([facility]) Jan 12, 2016 [id number] [phone] SONIA VENCES PATIENT [employer] [facility] ([facility]) MEDICARE ADVANTAGE MCR ([facility]) Mar 13, 2020 [id number] SONIA VENCES PATIENT [facility] [facility] ([facility]) MEDICARE ADVANTAGE MCR ([facility]) Mar 13, 2020 [id number] [phone] SONIA VENCES PATIENT [facility] ([facility]) MEDICARE ADVANTAGE MCR ([facility]) Mar 13, 2020 [id number] SONIA VENCES PATIENT [facility] [facility] ([facility]) MEDICARE ADVANTAGE MCR ([facility]) Mar 13, 2020 [id number] RUSONIA MANUEL PATIENT [facility] ([facility]) MEDICARE ADVANTAGE MEDIC ARE NATHEN [facility] Mar 13, 2019 [id number] SONIA VENCES PATIENT Selected Encounter This section includes the information on record at [place] for the Encounter. Date/Time Encounter Type Encounter Description Reason Provider Source May 30, 2023 11:00 AM Outpatient Encounter DERMATOLOGY DAOGRADYMICHELPAXTON L Braulio Encounter Template Text not used by [place] [...] 07, 2023 08:46 AM AMBULATORY - NONE [facility] Aug 23, 2023 03:00 PM AMBULATORY - NONE [facility] Nov 14, 2023 06:06 PM AMBULATORY - NONE [facility] Social History: Smoking Status (Most [...] 07:02 AM FORMER TOBACCO USE >1Y <7Y [facility] Tobacco Use History This section includes a history of the smoking, or tobacco-related health factors, that were collected on or before the date of the Encounter. The data comes from the [place] facility where the Encounter took place. Date/Time Smoking Status/Tobacco Use Comment F acility July 30, 2014 09:31 AM FORMER TOBACCO USE <1Y [facility] Encounter Notes: All associated encounter [...] calls back, schedule appointment for: Return to [facility] on or around ( May 30, 2023 ) for a total of 1 appointment(s) /es/ FIONA SMITH ADVANCED MSA Signed: 05/30/2023 12:29 FIONA SMITH [facility]
--- OUTSIDE RECORDS SUMMARY | 2023-12-22 15:34 | XMS_ITS | Continuity of Care Document ---
Author Name [facility] Organization [facility] Care Team Providers Care Turbine Operator Name Role Phone [facility] Unavailable Unavailable Problems Combined list of problems [...] are productive of severe economic inadaptability. 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 Entered By: PERFECTO LINN Comment: Cluster B traits [facility] Angioedema of tongue Active Condition July 30, 2014 En tered By: PERFECTO LINN Comment: related to certain foods(gluten, raspberries) [facility] Anxiety disorder Active Condition [facility] Celiac disease Active Condition July 122014 Entered By: PERFECTO LINN Comment: EGD 10/2011 [facility] Chronic low back pain Active Condition [...] Comment: 07/26 MRI multilevel disc/facet joint degeneration [facility] Chronic pain syndrome Active Condition July 30, 2014 En tered By: PERFECTO LINN Comment: headaches and low back, on daily narcotics since 2015 Entered By: PERFECTO LINN Comment: narcotics stopped 07/2014 [facility] Closed fracture of fifth metatarsal bone Active Condition July 30, 2014 Entered By: PERFECTO LINN Comment: 03/2011: ORIF right 5th MT fx [facility] Common migraine Active Condition July 30, 2014 Entered By: PERFECTO LINN Comment: generalized CARRERA with preceding scotomata [facility] Contusion of right hip region Active Condition [facility] Cyst of breast Active Condition July 122014 Entered By: PERFECTO LINN Comment: right breast cysts drained 2013 [facility] Dysphagia Active Condition Apr 20 Entered By: PERFECTO LINN Comment: 04/28 EGD nml esophagus, probable globus pharyngeus [facility] Family history of disorder Active Condition July 28, 2014 En tered By: PERFECTO LINN Comment: Fa depression, HTMay 2014 Entered By: PERFECTO LINN Comment: sister bipolar, hypothyroidism, type 2 DMMa2014 Entered By: PERFECTO LINN Comment: Mo - depressionMa2014 Entered By: PERFECTO LINN Comment: Mat GF prostate cancer [facility] Gastroesophageal reflux disease Active Condition July 30, 2014 Entered By: PERFECTO LINN Comment: resolved with elimination of gluten [facility] H/O: Active Condition July 112014 Entered By: PERFECTO LINN Comment: - vaginal [facility] health maintenance Active Condition Jun 17, 2015 En tered By: PERFECTO LINN Comment: 05/28/13 normal Pap cytologyJun 17, 2015 Entered By: PERFECTO LINN Comment: 09/25/14 mammogram/ultrasound [facility] Herpes labialis [facility] History of methicillin resistant Staphylococcus aureus infection Active Condition [facility] Hypothyroidism Active Condition July 122014 Entered By: PERFECTO LINN Comment: onset 2007 [facility] Knee pain (SNOMED CT [id number]) Active Condition May 04, 2015 Entered By: PERFECTO LINN Comment: bilateral, RX hyaluronic and [employer] injections [facility] Lumbar disc prolapse with radiculopathy Active Condition [facility] MDD, Recurrent, unspec Active Condition [facility] Mild persistent asthma Active Condition July 30, 2014 En tered By: PERFECTO LINN Comment: triggers cold exposure and allergies [facility] Mixed hyperlipidemia Active Condition Mar 31, 2015 Entered By: PERFECTO LINN Comment: primarily hypertriglyceridemia [facility] Morbid obesity Active Condition July Entered By: GUERRERO GEORGES Comment: telemove July 2015 [facility] Nicotine dependence Active Condition July 30, 2014 En tered By: PERFECTO LINN Comment: onset age 18, 1/2 ppd, quit 8 years, E cigs use 03/27 [facility] Perennial allergic rhinitis Active Condition July 30 Entered By: PERFECTO LINN Comment: on daily AH [facility] Recurrent major depressive episodes, severe, with psychosis Active Condition July 28, 2014 Entered By: PERFECTO LINN Comment: suicide attempt/hospitalizat [facility] 1991 [facility] Schizoaffective disorder Active Condition July 31, 2014 En tered By: PERFECTO LINN Comment: feels like she is being watched, auditory hallucinations [facility] Steatosis of liver Active Condition July 30, 2014 En tered By: PERFECTO LINN Comment: with transaminase elevation [facility] Suicidal ideation (SNOMED CT [id number]) Active Condition [facility] Tear of medial meniscus of knee Active Condition July 30 Entered By: PERFECTO LINN Comment: left, no surgeryMay 2014 Entered By: PERFECTO LINN Comment: concurrent patellofemoral symptoms [facility] headache syndromes Active Condition [facility] visit [...] due to squinting to see.Final spec Rx:OD -[id number] -6.75-0.67a665NV; new specs; order S-9s - FOC not [...] patient condition work-related occupational disease Inactive Condition [facility] Patient Education - Injury Prevention Inactive Condition [facility] visit for: ears / hearing exam Active Condition [facility] Diagnosis: ICD-10-CM R21 Rash and other nonspecific skin eruption Active Diagnosis [facility] Diagnosis: ICD-10-CM L03.90 Cellulitis, unspecified Active Diagnosis [facility] Diagnosis: ICD-10-CM F41.9 Anxiety disorder, unspecified Active Diagnosis [facility] Diagnosis: ICD-10-CM F60.3 Borderline personality disorder Active Diagnosis [facility] Diagnosis: ICD-10-CM J18.9 Pneumonia, unspecified organism Active Diagnosis [facility] Diagnosis: ICD-10-CM Z86.14 Personal history of methicillin resis staph infection Active Diagnosis [facility] Diagnosis: ICD-10-CM F42.4 Excoriation (skin-picking) disorder Active Diagnosis [facility] Diagnosis: ICD-10-CM L98.8 Oth disrd of the skin and subcutaneous tissue Active Diagnosis [facility] Diagnosis: ICD-10-CM F25.9 Schizoaffective disorder, unspecified Active Diagnosis [facility] Medications Combined list of outpatient medications from Department of Defense and Veterans Affairs facilities.Medications provided include 1) outpatient medications from the last 15 months, and 2) patient-reported medications. Medication Details Route Status Patient Instructions Prescription Expires Prescription Number Last Dispense Date Ordering Provider Order Date Order Qty Source ACETAMINOPH EN 500MG TAB TAKE TWO TABLETS BY MOUTH THREE TIMES A DAY ORAL ACTIVE NOLTING-B PERFECTO BHARDWAJ 2014 [facility] ASPIRIN 400MG/CAFFE INE 32MG TAB TAKE ONE TABLET BY MOUTH EVERY DAY NEEDED ORAL ACTIVE DUGLAS,CARMELO X 2020 [facility] BENZOYL PEROXIDE 10% (WATER BASED) GEL,TOP APPLY THIN LAYER EVERY DAY TOPICA L ACTIVE NOLTING-B PERFECTO BHARDWAJ 2014 [facility] CATAPRES (BRAND) 0.1 MG ORAL TAB TAKE ONE TABLET BY MOUTH TWICE A DAY Active 08/21/2024 [id number] 4 JORGITO SHAH 2023 60 [facility] Clindamycin (Cleocin T Eq.) Solution 1% Topical APPLY TO AFFECTED AREA TOPICALL Y TWICE A DAY NEEDED FOR FOLLICUL ITIS MANAGER SOUND AL USE ONLY Active 04/04/2024 [id number] 4 JORGITO SHAH 2023 60 [facility] Clindamycin (Cleocin T Eq.) Solution 1% Topical APPLY TO AFFECTED AREA TOPICALL Y TWICE A DAY NEEDED FOR FOLLICUL ITIS MANAGER SOUND AL USE ONLY Active 04/04/2024 [id number] 4 JORGITO SHAH 2023 60 [facility] Clindamycin (Cleocin T Eq.) Solution 1% Topical APPLY TO AFFECTED AREA TOPICALL Y TWICE A DAY NEEDED FOR FOLLICUL ITIS MANAGER SOUND AL USE ONLY Discont inued 09/08/2023 [id number] JORGITO SHAH 2023 60 [facility] CLINDAMYCIN PO4 1% SOLN,TOP APPLY TO AFFECTED AREA TOPICALL Y TWICE A DAY NEEDED FOR FOLLICUL ITIS MANAGER SOUND AL USE ONLY TOPICA L ACTIVE 04/04/2024 [id number] 4 JORGITO SHAH 2023 60 [facility] CLINDAMYCIN PO4 1% SOLN,TOP APPLY TO AFFECTED AREA TOPICALL Y TWICE A DAY NEEDED FOR FOLLICUL ITIS MANAGER SOUND AL USE ONLY TOPICA L DISCONT INUED 09/08/2023 [id number] JORGITO SHAH 2022 60 [facility] CLONIDINE HCL 0.1MG TAB TAKE ONE TABLET BY MOUTH TWICE A DAY ORAL ACTIVE 08/21/2024 [id number] ESPINOZA GRAY IN L 2023 60 [facility] DIPHENHYDRA MINE HCL 50MG CAP TAKE ONE CAPSULE BY MOUTH EVERY 8 HOURS NEEDED FOR ITCHING ORAL 09/23/2023 [id number] 4 RYLANDJORGITO SÁNCHEZ Luis Alberto 2023 30 [facility] DIPHENHYDRA MINE HCL 50MG CAP TAKE ONE CAPSULE BY MOUTH EVERY 8 HOURS NEEDED FOR ITCHING ORAL 05/03/2023 [id number] ELDER ROLLINS 2023 30 [facility] Diphenhydra mine Hydrochlori de (Banophen Eq.) Capsule Conventiona l 50 mg Oral TAKE ONE CAPSULE BY MOUTH EVERY 8 HOURS NEEDED FOR ITCHING 09/23/2023 [id number] 4 RYLANDJORGITO SÁNCHEZ Luis Alberto 2023 30 [facility] Diphenhydra mine Hydrochlori de (Banophen Eq.) Capsule Conventiona l 50 mg Oral TAKE ONE CAPSULE BY MOUTH EVERY 8 HOURS NEEDED FOR ITCHING 05/03/2023 [id number] 4 ATIYA ROLLINS 2023 30 [facility] DOXYCYCLINE HYCLATE 100MG TAB TAKE ONE TABLET BY MOUTH TWICE A DAY FOR CELLULIT IS * TAKE APART FROM MULTIVIT MORENO, ANTACID, CALCIUM, MAGNESIU M, IRON, OR ZINC. ORAL 11/03/2022 [id number] ALPHONSO DALY [place] 2022 14 [facility] EPINEPHRINE (EQV-EPI-PE N) 0.3MG/0.3ML INJECTOR INJECT 1 PEN DIRECTED NEEDED FOR ANAPHYLA CTIC REACTION ACTIVE 08/24/2024 [id number] 4 JORGITO SHAH 2023 2 [facility] Epinephrine 1mg/mL Solution, Intramuscul ar (Epipen), 0.3mL Prefilled Pen INJECT 1 PEN DIRECTED NEEDED FOR ANAPHYLA CTIC REACTION Active 08/24/2024 [id number] 4 JORGITO SHAH 2023 2 [facility] FEXOFENADIN E HCL 180MG TAB TAKE ONE TABLET BY MOUTH EVERY DAY FOR ALLERGIE S ORAL 06/29/2023 [id number] 4 Rk JONES 2022 90 [facility] FLONASE-OTC (BRAND) 50 MCG LIZET SPSN [9.9] SPRAY 2 SPRAYS IN EACH NOSTRIL EVERY DAY FOR ALLERGIE S 06/29/2023 [id number] 4 DIAZ JONES 2023 3 [facility] Fluoxetine (Prozac) Capsule Conventiona l 20 mg Oral TAKE TWO CAPSULES BY MOUTH EVERY DAY FOR DEPRESSI ON Active 08/24/2024 [id number] 4 JORGITO SHAH 2023 180 [facility] Fluoxetine (Prozac) Capsule Conventiona l 20 mg Oral TAKE TWO CAPSULES BY MOUTH EVERY DAY FOR DEPRESSI ON 08/15/2023 [id number] 4 CHARLIE GRECO 2023 180 [facility] Fluoxetine (Prozac) Capsule Conventiona l 20 mg Oral TAKE TWO CAPSULES BY MOUTH EVERY DAY FOR DEPRESSI ON 08/15/2023 [id number] 4 CHARLIE GRECO 2023 180 [facility] FLUOXETINE HCL 20MG CAP TAKE TWO CAPSULES BY MOUTH EVERY DAY FOR DEPRESSI ON ORAL ACTIVE 08/24/2024 [id number] 4 JORGITO SHAH Luis Alberto 2023 180 [facility] FLUOXETINE HCL 20MG CAP TAKE TWO CAPSULES BY MOUTH EVERY DAY FOR DEPRESSI ON ORAL 08/15/2023 [id number] 4 ARMEN GRECO 2022 180 [facility] FLUTICASONE 100MCG/SALM ETEROL 50MCG INHL,ORAL,D ISKUS,60 INHALE 1 PUFF BY INHALATI ON TWICE A DAY FOR ASTHMA *RINSE MOUTH AFTER EACH USE* RESPIR ATORY (INHAL ATION) DISCONT INUED 08/29/2023 [id number] 4 JORGITO SHAH 2023 3 [facility] FLUTICASONE 100MCG/SALM ETEROL 50MCG INHL,ORAL,D ISKUS,60 INHALE 1 PUFF BY INHALATI ON TWICE A DAY FOR ASTHMA *RINSE MOUTH AFTER EACH USE* RESPIR ATORY (INHAL ATION) 11/22/2023 [id number] 4 RYLANDJORGITO SÁNCHEZ Luis Alberto 2023 3 [facility] FLUTICASONE 100MCG/SALM ETEROL 50MCG INHL,ORAL,D ISKUS,60 INHALE 1 PUFF BY INHALATI ON TWICE A DAY FOR ASTHMA *RINSE MOUTH AFTER EACH USE* RESPIR ATORY (INHAL ATION) 04/02/2023 [id number] 3 Rk JONES 2022 3 [facility] FLUTICASONE PROPIONATE 50MCG/SPRAY SOLN,NASAL, 16GM SPRAY 2 SPRAYS IN EACH NOSTRIL EVERY DAY FOR ALLERGIE S NASAL 06/29/2023 [id number] 4 Rk JONESNIBraulio Valverde 2022 3 [facility] FLUTICASONE /SALMETEROL , 100-50MCG, AER POW BA, INHALATION INHALE 1 PUFF BY INHALATI ON TWICE A DAY FOR ASTHMA *RINSE MOUTH AFTER EACH USE* 11/22/2023 [id number] JORGITO SHAH 2023 3 [facility] FLUTICASONE /SALMETEROL , 100-50MCG, AER POW BA, INHALATION INHALE 1 PUFF BY INHALATI ON TWICE A DAY FOR ASTHMA *RINSE MOUTH AFTER EACH USE* Discont inued 08/29/2023 [id number] JORGITO SHAH 2023 3 [facility] FLUTICASONE /SALMETEROL , 100-50MCG, AER POW BA, INHALATION INHALE 1 PUFF BY INHALATI ON TWICE A DAY FOR ASTHMA *RINSE MOUTH AFTER EACH USE* 08/29/2023 [id number] 4 JORGITO SHAH 2023 3 [facility] FLUTICASONE /SALMETEROL , 100-50MCG, AER POW BA, INHALATION INHALE 1 PUFF BY INHALATI ON TWICE A DAY FOR ASTHMA *RINSE MOUTH AFTER EACH USE* 04/02/2023 [id number] 3 JORGITO SHAH 2023 3 [facility] GABAPENTIN (U/D) 300 MG ORAL CAP TAKE THREE CAPSULES BY MOUTH TWICE A DAY FOR PAIN AND NUMBNESS 11/22/2023 [id number] 4 JORGITO SHAH 2023 540 [facility] GABAPENTIN (U/D) 300 MG ORAL CAP TAKE THREE CAPSULES BY MOUTH TWICE A DAY FOR PAIN AND NUMBNESS 03/29/2023 [id number] 3 DIAZ JONES 2023 540 [facility] GABAPENTIN 300MG CAP TAKE THREE CAPSULES BY MOUTH TWICE A DAY FOR PAIN AND NUMBNESS ORAL 11/22/2023 [id number] 4 JORGITO SHAH 2023 540 [facility] GABAPENTIN 300MG CAP TAKE THREE CAPSULES BY MOUTH TWICE A DAY FOR PAIN AND NUMBNESS ORAL 03/29/2023 [id number] 3 Rk JONES 2022 540 [facility] IBUPROFEN 200MG TAB TAKE ONE TABLET BY MOUTH FOUR TIMES A DAY NEEDED ORAL ACTIVE DUGLASCARMELO X 2020 [facility] KETOCONAZOL E 2 % TOP SHAM [120ML] SHAMPOO SCALP TOPICALL Y 3 TIMES WEEKLY SCALP INFECTIO N *LATHER FOR 5 MINUTES THEN RINSE* 06/23/2023 [id number] DIAZ JONES 2023 120 [facility] KETOCONAZOL E 2 % TOP SHAM [120ML] SHAMPOO SCALP TOPICALL Y 3 TIMES WEEKLY SCALP INFECTIO N *LATHER FOR 5 MINUTES THEN RINSE* 06/23/2023 [id number] 4 DIAZ JONES 2023 120 [facility] KETOCONAZOL E 2% SHAMPOO SHAMPOO SCALP TOPICALL Y 3 TIMES WEEKLY SCALP INFECTIO N *LATHER FOR 5 MINUTES THEN RINSE* TOPICA L 06/23/2023 [id number] 4 Rk JONES 2022 120 [facility] LEVOTHYROXI NE NA 100MCG TAB (SYNTHROID) TAKE ONE TABLET BY MOUTH EVERY DAY FOR THYROID ORAL DISCONT INUED (EDIT) 11/19/2023 [id number] 4 JORGITO SHAH 2023 90 [facility] LEVOTHYROXI NE NA 100MCG TAB (SYNTHROID) TAKE ONE TABLET BY MOUTH EVERY DAY FOR THYROID ORAL DISCONT INUED 09/10/2023 [id number] 4 JORGITO SHAH 2023 90 [facility] LEVOTHYROXI NE NA 100MCG TAB (SYNTHROID) TAKE ONE TABLET BY MOUTH EVERY DAY FOR THYROID ORAL DISCONT INUED 04/02/2023 [id number] 4 JORGITO SHAH 2023 90 [facility] LEVOTHYROXI NE NA 100MCG TAB (SYNTHROID) TAKE ONE TABLET BY MOUTH EVERY DAY FOR THYROID ORAL DISCONT INUED 03/28/2023 [id number] JORGITO SHAH 2022 90 [facility] LEVOTHYROXI NE NA 100MCG TAB (SYNTHROID) TAKE ONE TABLET BY MOUTH EVERY DAY FOR THYROID ORAL DISCONT INUED 12/26/2022 [id number] JORGITO SHAH 2022 90 [facility] LEVOTHYROXI NE NA 50MCG TAB (SYNTHROID) TAKE ONE TABLET BY MOUTH EVERY DAY FOR THYROID ORAL ACTIVE 01/04/2024 [id number] 4 JORGITO SHAH 2023 30 [facility] LEVOTHYROXI NE NA 50MCG TAB (SYNTHROID) TAKE ONE TABLET BY MOUTH EVERY DAY FOR THYROID ORAL DISCONT INUED 11/22/2023 [id number] 4 JORGITO SHAH 2023 90 [facility] LORAZEPAM 1MG TAB TAKE ONE TABLET BY MOUTH AT BEDTIME ORAL ACTIVE KARENC ONIMANE M 2022 [facility] NON VA MED NOT LISTED USE VOLUNTAR Y DISCLOSU RE MEDICINA L CANNABIS EVERY DAY NEEDED NOT APPLIC ABLE ACTIVE CARMELO ARDON X 2020 [facility] PRIMIDONE 50MG TAB TAKE ONE TABLET BY MOUTH AT BEDTIME ORAL ACTIVE GRANDIA,C ONNIE M 2022 [facility] Fexofenadin e Hydrochlori de (Telfast) Tablet 180 mg Oral TAKE ONE TABLET BY MOUTH EVERY DAY FOR ALLERGIE S 06/29/2023 [id number] DIAZ JONES 2023 90 [facility] Allergies, Adverse Reactions, Alerts Combined list of allergies from Department of Defense and Veterans Affairs facilities. It does not include entries that were removed or entered in error. Substance Category Reaction Severity Reaction type Status Date Reported Comments Source Oxycodone Drug allergy (disorder) Nausea active 5 [facility] OXYCODONE Propensity to adverse reactions to drug (finding) Nausea active 5 [facility] Prednisone Drug allergy (disorder) Paresthesia active 5 [facility] PREDNISONE Propensity to adverse reactions to drug (finding) Paresthesia active 5 [facility] QUETIAPINE Propensity to adverse reactions to drug (finding) Nightmares active 5 [facility] Quetiapine Fumarate Drug allergy (disorder) Nightmares active 5 [facility] Tetracycline Drug allergy (disorder) active 5 [facility] TETRACYCLINE Propensity to adverse reactions to drug (finding) active 5 [facility] TRAMADOL Propensity to adverse reactions to drug (finding) Urticaria active 5 [facility] Tramadol HCl Drug allergy (disorder) Urticaria active 5 [facility] Trazodone Drug allergy (disorder) Memory impairment active 5 [facility] TRAZODONE Propensity to adverse reactions to drug (finding) Memory impairment active 5 [facility] VENLAFAXINE Drug allergy (disorder) Sweats active 5 [facility] VENLAFAXINE Propensity to adverse reactions to drug (finding) Sweating active 5 [facility] Venlafaxine Hydrochlorid e Drug allergy (disorder) Sweats active 5 [facility] Immunizations Combined list of available immunizations from the Department of Defense and Veterans Affairs facilities. Immunization Series Date Given Administered By Site Reaction Lot Number CVX Code Drug Rn Mds Coordinator Status Comments Source COVID-19 (MODERNA), MRNA, LNP-S, PF, 50 MCG/0.5 ML (AGES 12+ YEARS) 2023 312 complet ed [facility] INFLUENZA, MDCK, TRIVALENT, PF 2023 153 complet ed [facility] PNEUMOCOCCAL CONJUGATE PCV20, POLYSACCHARID E [id number] CONJUGATE, ADJUVANT, PF 2023 216 complet ed [facility] TD (ADULT), 5 LF TETANUS TOXOID, PRESERVATIVE FREE, ADSORBED 2022 SAMI MOSER RIGHT DELTO ID [id number] 113 complet ed [facility] COVID-19 ([facility]), MRNA, LNP-S, BIVALENT BOOSTER, PF, 30 MCG/0.3 ML DOSE 2022 300 complet ed [facility] INFLUENZA, INJECTABLE, QUADRIVALENT, PRESERVATIVE FREE 2022 150 complet ed [facility] INFLUENZA, UNSPECIFIED FORMULATION 2022 88 complet ed [facility] COVID-19 ([employer]), MRNA, LNP-S, PF, 30 MCG/0.3 ML DOSE, NORIS-SUCROSE (AGES 12+ YEARS) 3 2021 217 complet ed PFR; [id number]; 2 [facility] CB INFLUENZA, INJECTABLE, QUADRIVALENT, PRESERVATIVE FREE 2020 150 complet ed [facility] COVID-19 ([facility]), MRNA, LNP-S, PF, 30 MCG/0.3 ML DOSE 2 2020 208 complet ed [facility] COVID-19 ([employer]), MRNA, LNP-S, PF, 30 MCG/0.3 ML DOSE 1 2020 208 complet [facility] INFLUENZA, INJECTABLE, QUADRIVALENT, PRESERVATIVE FREE 2019 150 complet ed [facility] INFLUENZA, INJECTABLE, QUADRIVALENT 2018 158 complet ed [facility] INFLUENZA, INJECTABLE, QUADRIVALENT 2017 158 complet ed [facility] INFLUENZA, INJECTABLE, QUADRIVALENT, PRESERVATIVE FREE 2017 150 complet ed [facility] INFLUENZA, INJECTABLE, QUADRIVALENT, PRESERVATIVE FREE 2016 150 complet [facility] PNEUMOCOCCAL CONJUGATE PCV 13 2016 133 complet [facility] INFLUENZA, INJECTABLE, QUADRIVALENT, PRESERVATIVE FREE 2015 150 complet ed [facility] INFLUENZA, SEASONAL, INJECTABLE 2014 141 complet ed [facility] INFLUENZA, INJECTABLE, QUADRIVALENT, PRESERVATIVE FREE 2014 150 complet ed [facility] INFLUENZA, SEASONAL, INJECTABLE 2014 141 complet ed [facility] INFLUENZA, INJECTABLE, QUADRIVALENT, PRESERVATIVE FREE 2013 150 complet ed [facility] INFLUENZA, SEASONAL, INJECTABLE 2012 141 complet ed [facility] TDAP 2012 115 complet ed [facility] INFLUENZA, SEASONAL, INJECTABLE 2011 141 complet ed [facility] HEP B, ADULT 2011 43 complet ed [facility] INFLUENZA, SEASONAL, INJECTABLE 2010 141 complet ed [facility] PNEUMOCOCCAL POLYSACCHARID E PPV23 2009 33 complet ed [facility] INFLUENZA, SEASONAL, INJECTABLE, PRESERVATIVE FREE 2009 140 complet ed [facility] INFLUENZA, SEASONAL, INJECTABLE, PRESERVATIVE FREE 2008 140 complet [facility] NOVEL INFLUENZA-H1N 1-09, ALL FORMULATIONS 2008 128 complet ed [facility] INFLUENZA, SEASONAL, INJECTABLE 2007 141 complet [facility] HEP B, ADULT 2007 43 complet ed [facility] MMR 2007 03 complet [facility] HEP B, ADULT 2007 43 complet ed [facility] TDAP 2007 115 complet [facility] INFLUENZA, SEASONAL, INJECTABLE, PRESERVATIVE FREE 2007 140 complet [facility] TD (ADULT), 2 LF TETANUS TOXOID, PRESERVATIVE FREE, ADSORBED 2005 09 complet [facility] TD (ADULT), 2 LF TETANUS TOXOID, PRESERVATIVE FREE, ADSORBED 2003 09 complet [facility] TD (ADULT), 2 LF TETANUS TOXOID, PRESERVATIVE FREE, ADSORBED 2002 09 complet [facility] INFLUENZA, UNSPECIFIED FORMULATION 2001 88 complet [facility] Results Combined list of recent chemistry, [...] Sep 27, 2022 02:41 PM Reporting Lab: [facility] [id number] Performing Lab: [facility] [id number] [facility] TSH W/REFLEX TO FREE T4 THYROXINE (T4) FREE [MASS/VOLU ME] IN SERUM OR PLASMA 1.32 ng/dL 0.70 - 1.48 08/22 Specimen Type: PLASMA No comment entered. Ordering Provider: Nicolle SHAH Report Released Date/Time: Sep 27, 2022 02:41 PM Reporting Lab: [facility] [id number] Performing Lab: [facility] [phone] [facility] C.TRACHO MATIS/N. GONORRHE A DNA CHLAMYDIA TRACHOMATI S DNA [PRESENCE] IN URINE BY MICA WITH PROBE DETECTION NOT DETECTED 09/27 Specimen Type: URINE No comment entered. Ordering Provider: Nicolle SHAH Report Released Date/Time: Sep 27, 2022 03:02 PM Reporting Lab: [facility] [phone] Performing Lab: [facility] [phone] [facility] C.TRACHO MATIS/N. GONORRHE A DNA NEISSERIA GONORRHOEA E DNA [PRESENCE] IN URINE BY MICA WITH PROBE DETECTION NOT DETECTED 09/27 Specimen Type: URINE No comment entered. Ordering Provider: Nicolle SHAH Report Released Date/Time: Sep 27, 2022 03:02 PM Reporting Lab: [facility] [id number] Performing Lab: [facility] [phone] [facility] C.TRACHO MATIS/N. GONORRHE A DNA INTERPRETA TION AND REVIEW OF LABORATORY RESULTS Infectio us agent DNA is not detected by this assay 09/27 Specimen Type: URINE No comment entered. Ordering Provider: Nicolle SHAH Report Released Date/Time: Sep 27, 2022 03:02 PM Reporting Lab: [facility] [id number] Performing Lab: [facility] [phone] [facility] C.TRACHO MATIS/N. GONORROE AE,RECTA L CHLAMYDIA TRACHOMATI S RRNA [PRESENCE] IN ANAL BY MICA WITH PROBE DETECTION TNP 09/27 Specimen Type: RECTAL Comment: Specimen too short for repeat testing [place]ancellatio [place]: [place] [address]-03-22,TTP Test not performed. Initial testing necessitate d a repeat, but there was insufficien t sample to perform repeat. Test Performed by [facility], [address] [place] [address] Perri Valdovinos M.D., Ph.D., Director of Laboratorie s , CLIA [id number] Ordering Provider: Nicolle SHAH Report Released Date/Time: Sep 27, 2022 03:02 PM Reporting Lab: [facility] [id number] Performing Lab: [address] [facility] C.TRACHO MATIS/N. GONORROE AE,RECTA L NEISSERIA GONORRHOEA E RRNA [PRESENCE] IN SPECIMEN BY PROBE TNP 09/27 Specimen Type: RECTAL Comment: Specimen too short for repeat testing Cancellatio n reported to: Diya Rodas RN at 25 10-03-22,TTP Test not performed. Initial testing necessitate d a repeat, but there was insufficien t sample to perform repeat. Test Performed by [facility], [facility], [address] [place] [address] Perri Valdovinos M.D., Ph.D., Director of Laboratorie s , CLIA [id number] Ordering Provider: Nicolle SHAH Report Released Date/Time: Sep 27, 2022 03:02 PM Reporting Lab: [facility] [id number] Performing Lab: [address] [facility] C.TRACHO MATIS/N. GONORROE AE,THROA T CHLAMYDIA TRACHOMATI S RRNA [PRESENCE] IN SPECIMEN BY MICA WITH PROBE DETECTION Not Detected 09/27 Specimen Type: THROAT Comment: Methodology : Transcripti on Mediated Amplificati on(TMA) to detect RNA. The analytical performance characteris tics of this assay have been determined by [facility] [place], [place]. The modificatio ns have not been cleared or approved by the FDA. This assay has been validated pursuant to the CLIA regulations and is used for clinical purposes. Test Performed by [facility], [facility] [place], [address] [place] [address] Perri Valdovinos M.D., Ph.D., Director of Laboratorie s , CLIA [id number] Ordering Provider: Nicolle SHAH Report Released Date/Time: Sep 27, 2022 03:02 PM Reporting Lab: [facility] [phone] Performing Lab: [address] [facility] C.TRACHO MATIS/N. GONORROE AE,THROA T NEISSERIA GONORRHOEA E RRNA [PRESENCE] IN SPECIMEN BY PROBE Not Detected 09/27 Specimen Type: THROAT Comment: Methodology : Transcripti on Mediated Amplificati on(TMA) to detect RNA. The analytical performance characteris tics of this assay have been determined [place] [facility] The modificatio ns have not been cleared or approved by the FDA. This assay has been validated pursuant to the CLIA regulations and is used for clinical purposes. Test Performed by [facility], [facility], [address] [place] [address] Perri Valdovinos M.D., Ph.D., Director of Laboratorie s , CLIA [id number] Ordering Provider: Nicolle SHAH Report Released Date/Time: Sep 27, 2022 03:02 PM Reporting Lab: [facility] [address] Performing Lab: [facility] [address] [facility] HIV AG/AB SCREEN HIV 1+2 AB+HIV1 P24 AG [PRESENCE] IN SERUM OR PLASMA BY IMMUNOASSA Y NEGATIVE 09/27 Specimen Type: SERUM No comment entered. Ordering Provider: Nicolle SHAH Report Released Date/Time: Sep 27, 2022 03:02 PM Reporting Lab: [facility] [address] Performing Lab: [facility] [address] [facility] ANTI-HEP C(EIA) HEPATITIS C VIRUS AB [PRESENCE] IN SERUM NEGATIVE 09/27 Specimen Type: SERUM No comment entered. Ordering Provider: Nicolle SHAH Report Released Date/Time: Sep 27, 2022 03:02 PM Reporting Lab: [facility] [address] Performing Lab: [facility] [address] [facility] SYPHILIS ANTIBODY SYPHILIS SCREEN TEST STATUS CPHS NEGATIVE 09/27 Specimen Type: SERUM No comment entered. Ordering Provider: Nicolle SHAH Report Released Date/Time: Sep 27, 2022 03:02 PM Reporting Lab: [facility] [address] Performing Lab: [facility] [address] [facility] POC CREATINI NE CREATININE [MASS/VOLU ME] IN BLOOD 0.7 mg/dL 0.6 - 1.3 08/14 Specimen Type: BLOOD No comment entered. Ordering Provider: LAKE GRECO PH Report Released Date/Time: Aug 14, 2022 06:36 PM Reporting Lab: [facility] [address] Performing Lab: [facility] [address] [facility] EXTRA GOLD GEL TUBE EXTRA GOLD GEL TUBE RECEIVED 08/14 Specimen Type: SERUM No comment entered. Ordering Provider: GRECO,LAKE PH J Report Released Date/Time: Aug 14, 2022 06:12 PM Reporting Lab: [facility] [address] Performing Lab: [facility] [address] [facility] LIPASE LIPASE [ENZYMATIC ACTIVITY/V OLUME] IN SERUM OR PLASMA 32 U/L 08/14 Specimen Type: PLASMA No comment entered. Ordering Provider: LAKE GRECO PH J Report Released Date/Time: Aug 14, 2022 06:01 PM Reporting Lab: [facility] [address] Performing Lab: [facility] [address] [facility] Vital Signs Combined list of inpatient and outpatient Vital Signs from Department of Defense and Veterans Affairs, ranging from 12 months to all on record, depending upon the facility. Vital Sign Value Date Comments Source SYSTOLIC BLOOD PRESSURE 99 04/03/2023 15:28:00 [facility] DIASTOLIC BLOOD PRESSURE 55 04/03/2023 15:28:00 [facility] PAIN 0 04/03/2023 15:28:00 [facility] TEMPERATURE 97.7 04/03/2023 15:28:00 [facility] PULSE 69 04/03/2023 15:28:00 [facility] RESPIRATION 15 04/03/2023 15:28:00 [facility] Encounters Combined list of: 1) Encounters from Department of Veterans Affairs facilities going back up to thelast 18 months. 2) Encounters from the Department of [facility] facilities going back up to 280 months. Location Location Details Encounter Type Encounter Number Reason For Visit Attending Provider ADM Date DC Date Status Disposition Source [facility] Yovanny Rodas [facility] BERNA Carey(IEP Hearing Conservat ion Exam) OUTPATIENT [id number] Judie GOYOERICA GRAY 01/09 Released w/o Limitations [facility] Yovanny Rodas [facility] BERNA Carey(IEP Hearing Conserv ation Exam) [facility] Yovanny Rodas [facility] BERNA Carey(C-TMC Er Module) OUTPATIENT [id number] back pain LISA DARLING 01/09 Released w/o Limitations [facility] Yovanny Rodas [facility] BERNA Carey(C-TM C Er Module) General Yovanny Rodas [facility] [place] ) OUTPATIENT [id number] TRACEYKRYSTIAN LIU Shahab Valverde 01/12 Released w/o Limitations General [place] [facility] [place] OUTPATIENT [id number] Upper/m iddle back pain. DUYEN GARZA 01/16 Released with Work/Duty Limitations General [place] [facility] Yovanny Rodas [facility] [place]) OUTPATIENT [id number] NAE Garcia 02/01 Released with Work/Duty Limitations General [place] OUTPATIENT [id number] L ankle pain. PERRI FAITH 02/08 Released with Work/Duty Limitations General Yovanny Rodas [facility] [place] General Yovanny Rodas [facility] [place] [facility]) OUTPATIENT [id number] L ankle pain. HENNA CAVAZOS 02/24 Released with Work/Duty Limitations General Yovanny Rodas [facility] [place] [facility]) General [place] OUTPATIENT [id number] L knee pain. PERRI FAITH 03/21 Released with Work/Duty Limitations General [place] OUTPATIENT [id number] knee pain GILA COSME 03/30 Released with Work/Duty Limitations General [place]) OUTPATIENT [id number] knee pain DUYEN SCHUMACHER 04/10 Released w/o Limitations [place] [facility] Remote) OUTPATIENT [id number] PAINTER KALYAN E 04/11 Released with Work/Duty Limitations General [place] [facility] Remote) [place] [facility] Remote) OUTPATIENT [id number] NO SHOW CHETAN STEVENS 04/13 Released w/o Limitations General [place] [facility] Remote) [place] [facility] Remote) OUTPATIENT [id number] NO SHOW CHETAN STEVENS 04/14 Released w/o Limitations [place] [facility] Remote) [place] [facility] Remote) OUTPATIENT [id number] CHETAN STEVENS 04/17 Released with Work/Duty Limitations General [place] [facility] Remote) [place] [id number] exam TROY MCKEON 04/20 Released w/o Limitations General [place] [facility] Remote) OUTPATIENT [id number] NO SHOW REHABPh ysical Therapy Exercis e DAKOTAH Mark 04/20 Released w/o Limitations [place] [facility] Remote) General [place] [facility] Remote) OUTPATIENT [id number] CHETAN STEVENS 04/21 Released with Work/Duty Limitations General [place] [facility] Remote) General [place] [facility] Remote) OUTPATIENT [id number] KALYAN SHOOK 04/24 Released with Work/Duty Limitations General [place] [facility] Remote) General [place] [facility] Remote) OUTPATIENT [id number] KALYAN SHOOK 04/25 Released with Work/Duty Limitations General [place] [facility] Remote) General [place] [facility] Remote) OUTPATIENT [id number] NO SHOW REHAB Physica l Therapy Exercis e Session DAKOTAH SNEED 04/26 Released w/o Limitations [place] [facility] Remote) [place] [facility] Remote) OUTPATIENT [id number] SUKUMAR ALMODOVAR 04/27 Released with Work/Duty Limitations General [place] [facility] Remote) General [place] [facility] Remote) OUTPATIENT [id number] Physica l Therapy Exercis e Session DAKOTAH SNEED 04/28 Released with Work/Duty Limitations General [place] [facility] Remote) General [place]) OUTPATIENT [id number] NAE Dalton 05/03 Released w/o Limitations General [place] General [place] [facility] Remote) OUTPATIENT [id number] CHETAN STEVENS 05/03 Released with Work/Duty Limitations General [place] [facility] Remote) General Yovanny Wood [facility] [place] [facility] Remote) OUTPATIENT [id number] CHETAN STEVENS 05/04 Released with Work/Duty Limitations General Yovanny Rodas [facility] [place] [facility] Remote) [place] [facility] Remote) OUTPATIENT [id number] CHETAN STEVENS 05/05 Released with Work/Duty Limitations [place] [facility] Remote) General Yovanny Rodas [facility] [place] [facility] Remote) OUTPATIENT [id number] NILSA LI 05/09 Released with Work/Duty Limitations General [place] [facility] Remote) General [place]) OUTPATIENT [id number] NAE Garcia 05/15 Sick at Home/Quarter s General [place] General Yovanny Rodas [facility] [place] [facility] Remote) OUTPATIENT [id number] KALYAN SHOOK 05/30 Released with Work/Duty Limitations General [place] [facility] Remote) [place] [facility] Remote) OUTPATIENT [id number] Physica l Therapy Exercis e Session DAKOTAH SNEED 06/01 Released with Work/Duty Limitations [place] [facility] Remote) General Yovanny Rodas [facility] [place] [facility] Remote[place] OUTPATIENT [id number] Physica l Therapy Exercis e Session DAKOTAH SNEED 06/02 Released with Work/Duty Limitations General [place] [facility] Remote) General Yovanny Rodas [facility] [place] [facility] Remote) OUTPATIENT [id number] CHETAN STEVENS 06/05 Released with Work/Duty Limitations General Yovanny Wood [facility] [place] [facility] Remote) General [place] [facility] Remote) OUTPATIENT [id number] CHETAN STEVENS 06/07 Released with Work/Duty Limitations General [place] [facility] Remote) General [place] [facility] Remote) OUTPATIENT [id number] Physica l Therapy Exercis e Session NILSA LI 06/09 Released with Work/Duty Limitations General [place] [facility] Remote) General [place] [facility] Remote) OUTPATIENT [id number] CHETAN STEVENS 06/12 Released with Work/Duty Limitations General [place] [facility] Remote) General [place] [facility] Remote) OUTPATIENT [id number] NO SHOW FOLLOW UP WITH DAKOTAH DYKES 06/13 Released w/o Limitations General [place] [facility] Remote) General [place] [facility] Remote) OUTPATIENT [id number] NILSA LI 06/14 Released w/o Limitations General [place] [facility] Remote) General [place]) OUTPATIENT [id number] med raul and PERRI Lu 06/21 Released w/o Limitations General [place] OUTPATIENT [id number] NAE Garcia 06/29 Released with Work/Duty Limitations General [place]) OUTPATIENT [id number] l-knee pain HEATHER CAMARILLO 07/06 Released w/o Limitations General Yovanny Wood [facility] [place] [facility] Yovanny Wood [facility] [place] OUTPATIENT [id number] lt shoulde r pain/me d refill for migrain e COMFORTPERRI HOOD Rhett 07/11 Released with Work/Duty Limitations General Yovanny Wood [facility] [place]) [facility] Yovanny Wood [facility] [place] [facility] Remote) OUTPATIENT [id number] NILSA LI 07/12 Released w/o Limitations General Yovanny Wood [facility] [place] [facility] Remote) [facility] Yovanny Rodas [facility] [place]) OUTPATIENT [id number] pink eye TANYA BANDAR W 07/24 Released w/o Limitations General Yovanny Wood [facility] [place] [facility] Yovanny Wood [facility] [place]) OUTPATIENT [id number] URI; FEVER BLISTER S; RASH. LISA RENEE 07/28 Released w/o Limitations General Yovanny Wood [facility] [place]) [facility] Yovanny Rodas [facility] [place]) [place]PATIENT [id number] RAVEN DE LA CRUZ 08/03 Released w/o Limitations General Yovanny Wood [facility] [place]) [facility] Yovanny Wood [facility] [place] Physical Exam) OUTPATIENT [id number] physica l GILA COSME 08/03 Released w/o Limitations General Yovanny Wood [facility] [place] Physica l Exam) [facility] Yovanny Wood [facility] [place] OUTPATIENT [id number] sore throat and cough JONNIE HANNAH 08/05 Released w/o Limitations General Yovanny Wood [facility] [place] OUTPATIENT [id number] SEVERE HEADACH E; FEVER. LISA RENEE 08/21 Released w/o Limitations [place] [facility] Outpatient Encounter [id number] 06/21 [facility] Outpatient Encounter [id number] EDGAR GREY 06/21 [facility] Outpatient Encounter [id number] VIANEY PETERS 06/22 [facility] Outpatient Encounter [id number] 06/28 [facility] OFFICE O/P EST HI 40-54 MIN [id number] Diagnos is: ICD-10- CM F25.9 Schizoa ffectiv e disorde r, unspeci fied
GRANDIA,CO NNIE M 06/28 ALEXANDR LEA [facility] Outpatient Encounter [id number] Diagnos is: ICD-10- CM F60.3 Borderl ine persona lity disorde r
BRYON GRAY N L 07/12 [facility] Outpatient Encounter [id number] TESSA STOKES ONDA A 07/22 [facility] Outpatient Encounter [id number] 07/22 [facility] OFFICE O/P EST MOD 30-39 MIN [id number] Diagnos is: ICD-10- CM L98.8 Oth disrd of the skin and subcuta neous tissue< br/> ANNA KLEIN 08/02 [facility] Outpatient Encounter [id number] 08/04 [place] [facility] OFFICE O/P EST HI 40-54 MIN [id number] Diagnos is: ICD-10- CM F42.4 Excoria tion (skin-p icking) disorde r
BRYON SCANLON C 08/04 [facility] Outpatient Encounter [id number] 08/05 [facility] Outpatient Encounter [id number] 08/10 [facility] Outpatient Encounter [id number] BRYON GRAY L 08/12 [facility] Outpatient Encounter [id number] SNOIA NAVARRO V 08/12 [facility] EMERGENCY DEPT VISIT MOD MDM [id number] Diagnos is: ICD-10- CM 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
Divina LÓPEZ 08/12 [facility] OFFICE O/P EST LOW 20-29 MIN [id number] Diagnos is: ICD-10- CM F60.3 Borderl ine persona lity disorde r
Rhett THORNTON 08/12 [facility] [place] MDM [id number] Diagnos is: ICD-10- CM J18.9 Pneumon ia, unspeci fied organis m
CONRADO GRECO J 08/14 [facility] OFF/[place] CONSLTJ NEW/[place] [id number] Diagnos is: ICD-10- CM F60.3 Borderl ine persona lity disorde r
JOHNNIE DYER Shahab 08/14 [place] [facility] [place] [facility] Outpatient Encounter [id number] INES HANNAH 08/15 [place] [facility] [place] [facility] Outpatient Encounter [id number] 08/15 [place] [facility] [place] [facility] HC PRO PHONE CALL 11-20 MIN [id number] Diagnos is: ICD-10- CM F41.9 Anxiety disorde r, unspeci fied
LOUIS HERNANDEZ 08/16 [facility] [place] [facility] Outpatient Encounter [id number] 08/18 [place] [facility] Outpatient Encounter [id number] BRITNEYEDUARDO 08/25 [facility] [place] [facility] Outpatient Encounter [id number] LOUIS HERNANDEZ 08/30 [place] [facility] [place] [facility] Outpatient Encounter [id number] 08/31 [place] [facility] [place] [facility] HC PRO PHONE CALL 11-20 MIN [id number] Diagnos is: ICD-10- CM F41.9 Anxiety disorde r, unspeci fied
LOUIS HERNANDEZ 09/06 [facility] EMERGENCY DEPT VISIT LOW MDM [id number] Diagnos is: ICD-10- CM L03.90 Celluli tis, unspeci fied
RENA DALY 09/06 [place] [facility] [place] [facility] Outpatient Encounter [id number] 09/06 [place] [facility] [place] [facility] Outpatient Encounter [id number] EDGAR GREY 09/12 [place] [facility] [place] [facility] Outpatient Encounter [id number] INES HANNAH 09/14 [place] [facility] [place] [facility] Outpatient Encounter [id number] LOUIS HERNANDEZ 09/20 [facility] [place] [facility] OFFICE O/P NEW MOD 45-59 MIN [id number] Diagnos is: ICD-10- CM F41.9 Anxiety disorde r, unspeci fied
JORGITO SHAH 09/27 [facility] [place] [facility] Outpatient Encounter [id number] 09/28 [facility] EMERGENCY DEPT VISIT LOW MDM [id number] Diagnos is: ICD-10- CM L03.90 Celluli tis, unspeci fied
RENA DALY 10/04 [facility] [place] [facility] Outpatient Encounter [id number] EDGAR GREY 10/31 [facility] [place] [facility] Outpatient Encounter [id number] EDGAR GREY 11/01 [place] [facility] [place] [facility] Outpatient Encounter [id number] 11/09 [place] [facility] [place] [facility] Outpatient Encounter [id number] EDGAR GREY 11/28 [place] [facility] [place] [facility] Outpatient Encounter [id number] EDGAR GREY 12/05 [facility] [place] [facility] Outpatient Encounter [id number] EDGAR GREY 12/16 [place] [facility] [place] [facility] Outpatient Encounter [id number] 01/19 [place] [facility] [place] [facility] Outpatient Encounter [id number] Luis Alberto COOK 02/27 [place] [facility] [place] [facility] Outpatient Encounter [id number] Luis Alberto COOK 03/21 [place] [facility] [place] [facility] Outpatient Encounter [id number] IBIS MARTIN 04/03 [facility] [place] [facility] EMERGENCY DEPT VISIT LOW MDM [id number] Diagnos is: ICD-10- CM R21 Rash and other nonspec ific skin eruptio n
DEONNA ROLLINS 04/03 [facility] [place] [facility] Outpatient Encounter [id number] 04/10 [facility] [place] [facility] Outpatient Encounter [id number] MATHIEU BAINS 04/10 [facility] [place] [facility] Outpatient Encounter [id number] SUZI BETHEA 05/29 [facility] [place] [facility] Outpatient Encounter [id number] Luis Alberto COOK 07/06 [facility] [place] [facility] Outpatient Encounter [id number] 08/20 [facility] [place] [facility] Outpatient Encounter [id number] Luis Alberto COOK 11/13 [facility] [place] [facility] Outpatient Encounter [id number] 11/28 [facility] [place] [facility] Outpatient Encounter [id number] 12/04 [facility] Procedures Combined list of: 1) Procedures from Department of Veterans Affairs facilities going back up to thelast 18 months, not all [place] non-surgical procedures are included; 2) All procedures from the Department of Defense facilities. Procedure Procedure Type Code Date Perfomer Comments Sour e SELF-CARE/HOME MANAGMENT TRAIN (EG,ACT OF DAILY LIVING (ADL) &COMPENSAT TRAIN,MEAL PREPARATION,SAFETY PROCS,AND INSTRUCT IN USE OF ASST TECHNOLOGY DEV/ADPT EQUIP) DIR ONE-ON-ONE CONT,EA 15 MINUTES 07/25/19 07 [facility] INDIVIDUAL PSYCHOTHERAPY, INSIGHT ORIENTED, BEHAVIOR MODIFYING AND/OR SUPPORTIVE, IN AN OFFICE OR OUTPATIENT FACILITY, APPROXIMATELY 20 TO 30 MINUTES [id number] W THE PATIENT; W MED EVAL & MGT SER 07/22/19 07 [facility] THERAPEUTIC PROCEDURE, 1 OR MORE AREAS, EACH 15 MINUTES; THERAPEUTIC EXERCISES TO DEVELOP STRENGTH AND ENDURANCE, RANGE OF MOTION AND FLEXIBILITY 07/13/19 07 [facility] SELF-CARE/HOME MANAGMENT TRAIN (EG,ACT OF DAILY LIVING (ADL) &COMPENSAT TRAIN,MEAL PREPARATION,SAFETY PROCS,AND INSTRUCT IN USE OF ASST TECHNOLOGY DEV/ADPT EQUIP) DIR ONE-ON-ONE CONT,EA 15 MINUTES 07/12/19 07 [facility] SELF-CARE/HOME MANAGMENT TRAIN (EG,ACT OF DAILY LIVING (ADL) &COMPENSAT TRAIN,MEAL PREPARATION,SAFETY PROCS,AND INSTRUCT IN USE OF ASST TECHNOLOGY DEV/ADPT EQUIP) DIR ONE-ON-ONE CONT,EA 15 MINUTES 07/07/19 07 [facility] INDIVIDUAL PSYCHOTHERAPY, INSIGHT ORIENTED, BEHAVIOR MODIFYING AND/OR SUPPORTIVE, IN AN OFFICE OR OUTPATIENT FACILITY, APPROXIMATELY 20 TO 30 MINUTES [id number]-[id number] W THE PATIENT; W MED EVAL & MGT SER 06/29/19 07 [facility] THERAPEUTIC, PROPHYLACTIC OR DIAGNOSTIC INJECTION (SPECIFY SUBSTANCE OR DRUG); SUBCUTANEOUS OR INTRAMUSCULAR 06/22/19 07 [facility] INDIVIDUAL PSYCHOTHERAPY, INSIGHT ORIENTED, BEHAVIOR MODIFYING AND/OR SUPPORTIVE, IN AN OFFICE OR OUTPATIENT FACILITY, APPROXIMATELY 20 TO 30 MINUTES [id number] W THE PATIENT; W MED EVAL & MGT SER 06/15/19 07 [facility] SELF-CARE/HOME MANAGMENT TRAIN (EG,ACT OF DAILY LIVING (ADL) &COMPENSAT TRAIN,MEAL PREPARATION,SAFETY PROCS,AND INSTRUCT IN USE OF ASST TECHNOLOGY DEV/ADPT EQUIP) DIR ONE-ON-ONE CONT,EA 15 MINUTES 04/04/20 07 [facility] THERAPEUTIC PROCEDURE, 1 OR MORE [...] OUTPATIENT FACILITY, APPROXIMATELY 20 TO 30 MINUTES [id number] W THE PATIENT; W MED EVAL & MGT SER 06/01/19 07 [facility] SELF-CARE/HOME MANAGMENT TRAIN (EG,ACT OF DAILY LIVING (ADL) &COMPENSAT TRAIN,MEAL PREPARATION,SAFETY PROCS,AND INSTRUCT IN USE OF ASST TECHNOLOGY DEV/ADPT EQUIP) DIR ONE-ON-ONE CONT,EA 15 MINUTES 05/31/19 [facility] INDIVIDUAL PSYCHOTHERAPY, INSIGHT ORIENTED, BEHAVIOR MODIFYING AND/OR SUPPORTIVE, IN AN OFFICE OR OUTPATIENT FACILITY, APPROXIMATELY 20 TO 30 MINUTES [id number] W THE PATIENT; W MED EVAL & MGT SER 05/10/19 07 [facility] SELF-CARE/HOME MANAGMENT TRAIN (EG,ACT OF DAILY LIVING (ADL) &COMPENSAT TRAIN,MEAL PREPARATION,SAFETY PROCS,AND INSTRUCT IN USE OF ASST TECHNOLOGY DEV/ADPT EQUIP) DIR ONE-ON-ONE CONT,EA 15 MINUTES 05/09/19 07 [facility] THERAPEUTIC PROCEDURE, 1 OR MORE AREAS, EACH 15 MINUTES; THERAPEUTIC EXERCISES TO DEVELOP STRENGTH AND ENDURANCE, RANGE OF MOTION AND FLEXIBILITY 05/05/19 [facility] THERAPEUTIC PROCEDURE, 1 OR MORE AREAS, [...] OUTPATIENT FACILITY, APPROXIMATELY 20 TO 30 MINUTES [id number] W THE PATIENT; W MED EVAL & MGT SER 05/02/19 [facility] APPLICATION OF A MODALITY TO 1 OR MORE AREAS; HOT OR COLD PACKS 04/28/19 [facility] APPLICATION OF A MODALITY TO 1 OR MORE AREAS; HOT OR COLD PACKS 04/27/19 [facility] THERAPEUTIC PROCEDURE, 1 OR MORE AREAS, EACH 15 MINUTES; THERAPEUTIC EXERCISES TO DEVELOP STRENGTH AND ENDURANCE, RANGE OF MOTION AND FLEXIBILITY 04/25/19 [facility] APPLICATION OF A MODALITY TO 1 OR MORE AREAS; ELECTRICAL STIMULATION (MANUAL), EACH 15 MINUTES 04/24/19 [facility] APPLICATION OF A MODALITY TO 1 [...] OUTPATIENT FACILITY, APPROXIMATELY 20 TO 30 MINUTES [id number] W THE PATIENT; W MED EVAL & MGT SER 04/19/19 [facility] APPLICATION OF A MODALITY TO 1 OR MORE AREAS; ELECTRICAL STIMULATION (MANUAL), EACH 15 MINUTES 04/17/19 [facility] APPLICATION OF A MODALITY TO 1 OR MORE AREAS; HOT OR COLD PACKS 04/11/19 [facility] INDIVIDUAL PSYCHOTHERAPY, INSIGHT ORIENTED, BEHAVIOR MODIFYING AND/OR SUPPORTIVE, IN AN OFFICE OR OUTPATIENT FACILITY, APPROXIMATELY 20 TO 30 MINUTES [id number] W THE PATIENT; W MED EVAL & MGT SER 04/03/19 [facility] SELF-CARE/HOME MANAGMENT TRAIN (EG,ACT OF DAILY LIVING (ADL) &COMPENSAT TRAIN,MEAL PREPARATION,SAFETY PROCS,AND INSTRUCT IN USE OF ASST TECHNOLOGY DEV/ADPT EQUIP) DIR ONE-ON-ONE CONT,EA 15 MINUTES 03/30/19 [facility] SELF-CARE/HOME MANAGMENT TRAIN (EG,ACT OF DAILY LIVING (ADL) &COMPENSAT TRAIN,MEAL PREPARATION,SAFETY PROCS,AND INSTRUCT IN USE OF ASST TECHNOLOGY DEV/ADPT EQUIP) DIR ONE-ON-ONE CONT,EA 15 MINUTES 03/21/19 [facility] INDIVIDUAL PSYCHOTHERAPY, INSIGHT ORIENTED, BEHAVIOR MODIFYING AND/OR SUPPORTIVE, IN AN OFFICE OR OUTPATIENT FACILITY, APPROXIMATELY 20 TO 30 MINUTES [id number] W THE PATIENT; W MED EVAL & MGT SER 03/17/19 07 [facility] ANKLE FOOT ORTHOSIS, MULTILIGAMENTOUS ANKLE SUPPORT, PREFABRICATED, [id number] 02/25/20 06 [facility] SELF-CARE/HOME MANAGMENT TRAIN (EG,ACT OF DAILY LIVING (ADL) &COMPENSAT TRAIN,MEAL PREPARATION,SAFETY PROCS,AND INSTRUCT IN USE OF ASST TECHNOLOGY DEV/ADPT EQUIP) DIR ONE-ON-ONE CONT,EA 15 MINUTES 02/09/20 06 [facility] PSYCHIATRIC DIAGNOSTIC INTERVIEW EXAMINATION 01/27/20 06 [facility] PSYCHIATRIC DIAGNOSTIC INTERVIEW EXAMINATION 01/25/20 06 [facility] SELF-CARE/HOME MANAGMENT TRAIN (EG,ACT OF DAILY LIVING (ADL) &COMPENSAT TRAIN,MEAL PREPARATION,SAFETY PROCS,AND INSTRUCT IN USE OF ASST TECHNOLOGY DEV/ADPT EQUIP) DIR ONE-ON-ONE CONT,EA 15 MINUTES 01/17/20 06 [facility] DETERMINATION OF REFRACTIVE STATE 01/13/20 06 [facility] HEPATITIS A AND HEPATITIS B VACCINE (HEPA-HEPB), ADULT DOSAGE, FOR INTRAMUSCULAR USE 01/12/20 06 [facility] EAR MOLD/INSERT, NOT DISPOSABLE, ANY TYPE 01/10/20 06 [facility] Psychotherapy Individual Approx 30 Min W/ Medical Evaluation & Management Psychotherapy Individual Approx 30 Min W/ Medical Evaluation & Management [id number] 08/01/19 07 NASIM FOSTER [facility] Patient Training And Self-Care Skills Patient Training And Self-Care Skills 80201 07/25/19 07 BANDAR MARTÍNEZ [facility] Psychotherapy Individual Approx 30 Min W/ Medical Evaluation & Management Psychotherapy Individual Approx 30 Min W/ Medical Evaluation & Management 42384 07/25/19 07 VASQUEZ MARCUS [facility] A isted Exercises For ROM Assisted Exercises For ROM 08121 07/13/19 07 NILSA LI [facility] Phys Therapy Education Self Care Training - Per 15 Minutes Phys Therapy Education Self Care Training - Per 15 Minutes 71477 07/13/19 07 NILSA LI [facility] Physical Therapy Service Evaluation Physical Therapy Service Evaluation 96265 07/13/19 07 NILSA LI [facility] Physician Supervised Injection Intramuscular Physician Supervised Injection Intramuscular 47704 07/12/19 07 PERRI FAITH [facility] Patient Training And Self-Care Skills Patient Training And Self-Care Skills 48898 07/12/19 07 PERRI FAITH [facility] Patient Training And Self-Care Skills Patient Training And Self-Care Skills 19870 07/07/19 07 HEATHER CAMARILLO [facility] Psychotherapy Individual Approx 30 Min W/ Medical Evaluation & Management Psychotherapy Individual Approx 30 Min W/ Medical Evaluation & Management 71590 06/29/19 07 NASIM FOSTER [facility] Physician Supervised Injection Intramuscular Physician Supervised Injection Intramuscular 97156 06/22/19 07 PERRI FAITH Patient Training And Self-Care Skills Patient Training And Self-Care Skills 41683 06/22/19 07 PERRI FAITH [facility] Phys Therapy Education Self Care Training - Per 15 Minutes Phys Therapy Education Self Care Training - Per 15 Minutes 77476 06/15/19 07 NILSA LI [facility] Physical Therapy Service Re-Evaluation Physical Therapy Service Re-Evaluation 89775 06/15/19 07 NILSA LI Physical Therapy: ___ Se ion Segments, 15 Minutes Each Physical Therapy: ___ Session Segments, 15 Minutes Each 27132 06/13/19 07 CHETAN STEVENS Modalities Cryotherapy Cold Packs Modalities Cryotherapy Cold Packs 63692 06/13/19 07 CHETAN STEVENS Modalities Cryotherapy Cold Packs Modalities Cryotherapy Cold Packs 88734 06/10/19 07 NILSA LI Physical Therapy: ___ Se ion Segments, 15 Minutes Each Physical Therapy: ___ Session Segments, 15 Minutes Each 68087 06/10/19 07 NILSA LI Taping Knee Taping Knee 61800 06/08/19 07 CHETAN STEVENS Physical Therapy: ___ Se ion Segments, 15 Minutes Each Physical Therapy: ___ Session Segments, 15 Minutes Each 25798 06/08/19 07 CHETAN STEVENS Modalities Cryotherapy Cold Packs Modalities Cryotherapy Cold Packs 15806 06/08/19 07 CHETAN STEVENS Physical Therapy: ___ Se ion Segments, 15 Minutes Each Physical Therapy: ___ Session Segments, 15 Minutes Each 78769 06/06/19 07 CHETAN STEVENS Modalities Cryotherapy Cold Packs Modalities Cryotherapy Cold Packs 52812 06/06/19 07 CHETAN STEVENS Modalities Cryotherapy Cold Packs Modalities Cryotherapy Cold Packs 22409 06/03/19 07 DAKOTAH SNEED [facility] Physical Therapy: ___ Se ion Segments, 15 Minutes Each Physical Therapy: ___ Session Segments, 15 Minutes Each 82563 06/03/[facility] Cold Packs Modalities Cryotherapy Cold Packs 44320 06/02/19 07 NEDRA [facility] Physical Therapy: ___ Se ion Segments, 15 Minutes Each Physical Therapy: ___ Session Segments, 15 Minutes Each 15110 06/02/19 [facility] Individual Approx 30 Min W/ Medical Evaluation & Management Psychotherapy Individual Approx 30 Min W/ Medical Evaluation & Management 53016 06/01/19 07 NASIM FOSTER [facility] Phys Therapy Education Self Care Training - Per 15 Minutes Phys Therapy Education Self Care Training - Per 15 Minutes 99176 05/31/19 07 KALYAN SHOOK Taping Knee Taping Knee 59019 05/31/19 07 KALYAN SHOOK Physical Therapy Service Re-Evaluation Physical Therapy Service Re-Evaluation 67564 05/31/19 07 KALYAN SHOOK Psychotherapy Individual Approx 30 Min W/ Medical Evaluation & Management Psychotherapy Individual Approx 30 Min W/ Medical Evaluation & Management 32739 05/17/19 07 NASIM FOSTER Phys Therapy Education Self Care Training - Per 15 Minutes Phys Therapy Education Self Care Training - Per 15 Minutes 26059 05/09/19 07 NILSA LI Physical Therapy Service Re-Evaluation Physical Therapy Service Re-Evaluation 98699 05/09/19 07 NILSA LI [facility] Physical Therapy: ___ Se ion Segments, 15 Minutes Each Physical Therapy: ___ Session Segments, 15 Minutes Each 42353 05/05/19 07 CHETAN STEVENS Modalities Cryotherapy Cold Packs Modalities Cryotherapy Cold Packs 54215 05/05/19 07 CHETAN STEVENS Physical Therapy: ___ Se ion Segments, 15 Minutes Each Physical Therapy: ___ Session Segments, 15 Minutes Each 08978 05/04/19 07 CHETAN STEVENS Modalities Cryotherapy Cold Packs Modalities Cryotherapy Cold Packs 16378 05/04/19 07 CHETAN STEVENS Psychotherapy Individual Approx 30 Min W/ Medical Evaluation & Management Psychotherapy Individual Approx 30 Min W/ Medical Evaluation & Management 94088 05/02/19 07 NASIM FOSTER Modalities Cryotherapy Cold Packs Modalities Cryotherapy Cold Packs 73045 04/28/19 07 DAKOTAH SNEED Physical Therapy: ___ Se ion Segments, 15 Minutes Each Physical Therapy: ___ Session Segments, 15 Minutes Each 08135 04/28/19 07 DAKOTAH SNEED Modalities Cryotherapy Cold Packs Modalities Cryotherapy Cold Packs 71251 04/27/19 07 SUKUMAR ROMERO Physical Therapy: ___ Se ion Segments, 15 Minutes Each Physical Therapy: ___ Session Segments, 15 Minutes Each 06405 04/27/19 07 SUKUMAR ROMERO A isted Exercises For ROM Assisted Exercises For ROM 09722 04/25/19 07 KALYAN SHOOK Physical Therapy Service Re-Evaluation Physical Therapy Service Re-Evaluation 11212 04/25/19 07 KALYAN SHOOK Modalities Electrical Stimulation Modalities Electrical Stimulation 73552 04/24/19 07 KALYAN SHOOK Physical Therapy: ___ Se ion Segments, 15 Minutes Each Physical Therapy: ___ Session Segments, 15 Minutes Each 45883 04/24/19 07 KALYAN SHOOK Modalities Cryotherapy Cold Packs Modalities Cryotherapy Cold Packs 42170 04/24/19 07 KALYAN SHOOK Modalities Electrical Stimulation Modalities Electrical Stimulation 22553 04/21/19 07 CHETAN STEVENS Modalities Cryotherapy Cold Packs Modalities Cryotherapy Cold Packs 19613 04/21/19 07 CHETAN STEVENS Physical Therapy: ___ Se ion Segments, 15 Minutes Each Physical Therapy: ___ Session Segments, 15 Minutes Each 86735 04/21/19 07 CHETAN STEVENS Psychotherapy Individual Approx 30 Min W/ Medical Evaluation & Management Psychotherapy Individual Approx 30 Min W/ Medical Evaluation & Management 81657 04/21/19 07 NASIM FOSTER Spectacles Services Fitting Monofocal Except For Aphakia Spectacles Services Fitting Monofocal Except For Aphakia 59409 04/20/19 07 TROY MCKEON Determination Of Refractive State Determination Of Refractive State 27389 04/20/19 07 TROY MCKEON Visual Real Test Limited Examination Visual Real Test Limited Examination 11163 04/20/19 07 TROY MCKEON Ophthalmological New Patient Start Comprehensive Care Ophthalmological New Patient Start Comprehensive Care 09817 04/20/19 07 TROY MCKEON Psychotherapy Individual Approx 30 Min W/ Medical Evaluation & Management Psychotherapy Individual Approx 30 Min W/ Medical Evaluation & Management 39041 04/19/19 07 NASIM FOSTER Modalities Electrical Stimulation Modalities Electrical Stimulation 73353 04/17/19 07 CHETAN STEVENS Physical Therapy: ___ Se ion Segments, 15 Minutes Each Physical Therapy: ___ Session Segments, 15 Minutes Each 71370 04/17/19 07 CHETAN STEVENS Modalities Cryotherapy Cold Packs Modalities Cryotherapy Cold Packs 00221 04/17/19 07 CHETAN STEVENS Modalities Cryotherapy Cold Packs Modalities Cryotherapy Cold Packs 81446 04/11/19 07 KALYAN SHOKO Phys Therapy Education Self Care Training - Per 15 Minutes Phys Therapy Education Self Care Training - Per 15 Minutes 02636 04/11/19 07 KALYAN SHOOK A isted Exercises For ROM Assisted Exercises For ROM 62616 04/11/19 07 KALYAN SHOOK Physical Therapy Service Evaluation Physical Therapy Service Evaluation 86972 04/11/19 07 KALYAN SHOOK Patient Training And Self-Care Skills Patient Training And Self-Care Skills 92235 03/30/19 07 GILA COSME Patient Training And Self-Care Skills Patient Training And Self-Care Skills 60949 03/21/19 07 PERRI FAITH Psychotherapy Individual Approx 30 Min W/ Medical Evaluation & Management Psychotherapy Individual Approx 30 Min W/ Medical Evaluation & Management 53421 03/17/19 07 NASIM FOSTER Ankle foot orthosis, multiligamentous ankle support, prefabricated, [id number] 02/25/20 06 HENNA CAVAZOS Physical Therapy Education Orthotics Training Initial 15 Min 02/25/20 06 HENNA CAVAZOS Patient Training And Self-Care Skills Patient Training And Self-Care Skills 15973 02/09/20 06 PERRI FAITH Psychiatric Diagnostic Evaluation Comprehensive Examination Psychiatric Diagnostic Evaluation Comprehensive Examination 09327 01/27/20 06 RICCO DIAZ [facility] Patient Training And Self-Care Skills Patient Training And Self-Care Skills 35754 01/17/20 06 DUYEN GARZA [facility] Phys Therapy Education Self Care Training - Per 15 Minutes Phys Therapy Education Self Care Training - Per 15 Minutes 31585 01/17/20 06 DUYEN GARZA [facility] Screening Test Of Visual Acuity, Quantitative, Bilateral Screening Test Of Visual Acuity, Quantitative, Bilateral 27203 01/13/20 06 HENNA MARTIN Spectacles Services Fitting Monofocal Except For Aphakia Spectacles Services Fitting Monofocal Except For Aphakia 66781 01/13/20 06 HENNA MARTIN Determination Of Refractive State Determination Of Refractive State 59197 01/13/20 06 HENNA MARTIN Ear mold/insert, not disposable, any type 01/10/20 06 ERICA DANG Audiometry Group Testing Audiometry Group Testing 79901 01/10/20 06 ERICA DANG Physician Supervised Group Educational Services 01/10/20 06 ERICA DANG Social History Combined list of available smoking, tobacco, and other social 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 Social History Type Response Date Comment Sourc e Tobacco smoking status NHIS VA-TOBACCO USER EVERY DAY 06/28/2022 ALEXANDR URIOSTEGUI [facility] History of tobacco use VA-TOBACCO USE > 15 LESS THAN 30 YEARS 06/28/2022 ALEXANDR URIOSTEGUI [facility] History of tobacco use VA-TOBACCO DOESNT USE WI 30 MIN WAKEUP 03/08/2021 ALEXANDR URIOSTEGUI [facility] History of tobacco use VA-TOBACCO USER E VERY DAY 01/27/2020 ALEXANDR URIOSTEGUI [facility] History of tobacco use FORMER TOBACCO US E >1Y <7Y 06/17/2015 [facility] History of tobacco use FORMER TOBACCO USE <1Y 07/30/2014 [facility] This section is an empty social history section. [employer]
--- OUTSIDE RECORDS SUMMARY | 2023-12-22 15:34 | XMS_ITS | Encounter Summary ---
Author Name [facility] [place] Address [address] [facility] [address] Care Team Providers Care Cement Boat And Barge Loader Name Role Phone JORGITO SHAH Primary Care [...] Patient's Relationship to Policy [facility] ([facility]) MEDICARE ADVANTAGE MCR ([facility]) Jan 12, 2016 [id number] [phone] SONIA VENCES PATIENT [facility] ([facility]) MEDICARE ADVANTAGE MCR ([facility]) Mar 13, 2020 [id number] SONIA VENCES PATIENT [facility] ([facility]) MEDICARE ADVANTAGE [facility]CR ([facility]) Mar 13, 2020 [id number] SONIA VENCES PATIENT [facility] ([facility]) MEDICARE ADVANTAGE MCR ([facility]) Mar 13, 2020 [id number] SONIA VENCES PATIENT [facility] ([facility]) MEDICARE ADVANTAGE [facility]CR ([facility]) Mar 13, 2020 [id number] RUSONIA MANUEL PATIENT [facility] ([facility]) MEDICARE ADVANTAGE MEDIC [facility] Mar 13, 2019 [id number] SONIA VENCES PATIENT Selected Encounter This section includes the information on record at [place] for the Encounter. Date/Time Encounter Type Encounter Description Reason Pro vider Source Jan 19, 2023 09:00 AM Outpatient Encounter [facility] Encounter Template Text not used by [place] Plan of Treatment: Future Appointments (+ 6 months) and Future Tests (+/- 45 days) The Plan of Treatment section includes future care activities for the patient from all [place] [facility]. This section includes future appointments and future orders which are active, pending or scheduled. Future Appointments This section includes appointments that were scheduled to occur 6 months from the date of the Encounter, up to a maximum of 20 appointments. The data comes from all [place] treatment facilities. Appointment Date/Time Appointment Type Appointme nt Facility Name Feb 27, 2023 09:16 PM AMBULATORY - NONE [facility] Mar 21, 2023 05:01 PM [facility] Apr 03, 2023 02:14 PM AMBULATORY - MEDICINE [facility] May 30, 2023 11:00 AM AMBULATORY - SURGERY [facility] Jul 07, 2023 08:46 AM AMBULATORY - NONE [facility] Social History: Smoking Status (Most current) and Tobacco Use (All prior to encounter date) This section includes the most current, and the historical, smoking and tobacco- related health factors from the [place] facility where the Encounter took place. Current Smoking Status This section includes the most current smoking, or tobacco-related health factor, from the [place] facility where the Encounter took place. Date/Time Current Smoking Status Comment Facil ity Jun 17, 2015 07:02 AM FORMER TOBACCO USE >1Y <7Y [facility] Tobacco Use History This section includes a history of the smoking, or tobacco-related health factors, that were collected on or before the date of the Encounter. The data comes from the [place] facility where the Encounter took place. Date/Time Smoking Status/Tobacco Use Comment F acility July 30, 2014 09:31 AM FORMER TOBACCO USE <1Y [facility] Encounter Notes: All associated encounter notes [...] appear for scheduled appointment. Risk Factors: hx AR, hx abuse, unkown to newspaper writer per chart last safety plan August 14 2022, last contact with suicide prevention September 06 with two more outreach attemtps with messages not returned Protective Factors: unkown to newspaper writer Clinician Judgment of Risk: no SI mentioned in recent notes from suicide prevention Plan Based on Clinician Judgment of Risk: outreach for no show intake per policy /jose armando/ DUYEN JORDAN RN REGISTERED NURSE Signed: 01/19/2023 09:23 Receipt Acknowledged By: 01/19/2023 09:58 /jose armando/ ZULEYKA WILSON M.D. STAFF PSYCHIATRIST 01/23/2023 09:05 /jose armando/ DENNY GUIDRY Lead [facility] 01/19/2023 ADDENDUM STATUS: COMPLETED Outreach call #1 phone not accepting calls- unable to leave message /jose armando/ DUYEN JORDAN RN REGISTERED NURSE Signed: 01/19/2023 09:28 DUYEN JORDAN [facility]
--- OUTSIDE RECORDS SUMMARY | 2023-12-22 15:34 | XMS_ITS | Encounter Summary ---
Author Name [facility] [place] Organization [facility] [place] Address [address] [place] [address] Care Team Providers Care Information Systems Specialist Name Role Phone JORGITO SHAH Primary Care [...] MEDICARE ADVANTAGE [facility]CR ([facility]) Jan 12, 2016 [id number] [phone] SONIA VENCESZEUS PATIENT [facility] ([facility]) MEDICARE [facility] ([facility]) Mar 13, 2020 [id number] [phone] SONIA VENCES PATIENT [facility] ([facility]) MEDICARE ADVANTAGE [facility] ([facility]) Mar 13, 2020 [id number] SONIA VENCES MANUEL PATIENT [facility] ([facility]) MEDICARE ADVANTAGE [facility] ([facility]) Mar 13, 2020 [id number] SONIA VENCES MELVINIFER PATIENT [facility] ([facility]) MEDICARE ADVANTAGE [facility] ([facility]) Mar 13, 2020 [id number] SONIA VENCES PATIENT [facility] ([facility]) MEDICARE ADVANTAGE MEDIC [facility] Mar 13, 2019 [id number] SONIA VENCES PATIENT Selected Encounter This section includes the information on record at [place] for the Encounter. Date/Time Encounter Type Encounter Description Reason Pro vider Source Nov 29, 2023 12:00 AM Outpatient Encounter EVENT (HISTORICAL) IHE Encounter Template Text not used by [place] Plan of Treatment: Future Appointments (+ 6 months) and Future Tests (+/- 45 days) The Plan of Treatment section includes future care activities for the patient from all [place] treatmentfacilities. This section includes future appointments and future orders which are active, pending or scheduled. Future Appointments This section includes appointments that were scheduled to occur 6 months from the date of the Encounter, up to a maximum of 20 appointments. The data comes from all [place] treatment facilities. Appointment Date/Time Appointment Type Appointme nt Facility Name Dec 06, 2023 10:00 AM AMBULATORY - NONE [facility] Immunizations: All administered on the encounter date This section contains immunizations associated to the Encounter. Immunization Series Date Issued Reaction Comments COVID-19 (MODERNA), MRNA, LN P-S, PF, 50 MCG/0.5 ML (AGES 12+ YEARS) Nov 29, 2023 INFLUENZA, MDCK, TRIVALENT, PF Nov 29, 2023 PNEUMOCOCCAL CONJUGATE PCV20 , POLYSACCHARIDE [id number] CONJUGATE, ADJUVANT, PF Nov 29, 2023 Social History: Smoking Status (Most current) and Tobacco Use (All prior to encounter date) This section includes the most current, and the historical, smoking and tobacco- related health factors from the [place] facility where the Encounter took place. Current Smoking Status This section includes the most current smoking, or tobacco-related health factor, from the [place] facility where the Encounter took place. Date/Time Current Smoking Status Comment Facil ity Jun 17, 2015 07:02 AM FORMER TOBACCO USE >1Y <7Y [facility] Tobacco Use History This section includes a history of the smoking, or tobacco-related health factors, that were collected on or before the date of the Encounter. The data comes from the [place] facility where the Encounter took place. Date/Time Smoking Status/Tobacco Use Comment F acility July 30, 2014 09:31 AM FORMER TOBACCO USE <1Y [facility]
--- OUTSIDE RECORDS SUMMARY | 2023-12-22 15:35 | XMS_ITS | Patient Health Record ---
Author Organization [facility] - Primary Address [address] [place] [id number] Care Team Providers Care Handicapper Harness Racing Name Role Phone Different, PCP Primary Care Provider Jared Watts Unavailable [phone] ALLERGIES Allergen (clinical drug ingredient) Drug/Non Drug [...] chronic (F43.12) Active confirmed Posttraumatic stress disorder ([id number]) Problem Headache, unspecified (R51.9) Active confirmed Headache (41028446) Encounters Encounter Location Date Provider Diagnosis [facility] Primary [address] [place] [address] 12/22/2022 Jared Pratt Post-traumatic stress disorder, chronic F43.12 [facility] Primary [address] [place] [address] 12/21/2023 Jared Pratt ASSESSMENTS Encounter Date Diagnosis Assessment Notes Treatment Notes Treatment Clinical Notes 12/22/2022 Post-traumatic stress disorder, chronic (ICD-10 - F43.12) Records reviewed with pt. Improved with cannabis. Recertified for medical cannabis on [facility] cannabis website according to [place] law PLAN OF TREATMENT No Information Insurance Providers Payer Name Payer Address Payer Phone Subscriber Number Group Number Insured Name Patient Relationship to Insured Coverage Start Date Coverage End Date [facility] Medicare [address] [address] [place] [address] [id number] Korina Soto Self - patient is the insured MEDICAL (GENERAL) HISTORY Medical History History ICD Code anxiety PTSD sleep apnea Hypothyroidism depression insomnia allergies parkinson's disease Surgical History Surgery Date(Month/Year) colonoscopy 11/2022
--- OUTSIDE RECORDS SUMMARY | 2023-12-22 15:35 | XMS_ITS ---
Author Organization [facility] - Primary Address [address] [place] [phone] Care Team Providers Care Rfid Strategist Name Role Phone Different, PCP Primary Care Provider Jared Watts Unavailable [phone] Encounters Encounter Location Date Provider Diagnosis [facility] Primary [address] [place] [address] 12/21/2023 Jared Pratt PLAN OF TREATMENT No Information
--- OUTSIDE RECORDS SUMMARY | 2023-12-22 15:36 | XMS_ITS ---
Author Organization [facility] Address [address] [place] [address] Care Team Providers Care Boiling House Oiler Name Role Phone Unavailable Unavailable Unavailable Surgery Details Not on file Complications Check Surgery Details section. Procedure Estimated Blood Loss Check Surgery Details section. Procedure Findings Check Surgery Details section. Procedure Specimens Taken Check Surgery Details section.
--- OUTSIDE RECORDS SUMMARY | 2023-12-22 15:36 | XMS_ITS | Encounter Summary ---
Author Organization [facility] Address [address] [place] [address] Care Team Providers Care Mortuary Beautician Name Role Phone Elsewhere, Pcp Primary Care Provider Unavailabl e Encounter Details Date Type Department Care Team (Late st Contact Info) Description 09/11/2023 Clinical Communication Department of Family Medicine, [facility], in [place], [place] [address] [place] [phone] Thao Zhu D.O. [address] [place] [address] Social History Tobacco Use Types Packs/Day Years Used Date Smoking Tobacco: Some Days Cigarettes 0.5 14.8 Started: 03/2009 Smokeless Tobacco: Never Comments:trying to [...] How often do you attend chur or orthodox services? Patient declined 04/08/2021 Do you belong to any clubs o r organizations such as hoahaoism groups, unions, fraternal or athletic groups, or [...] housing, medical care, and heating? Hard 04/08/2021 [facility] - [...] place to sleep or slept in a group home (including now)? No 04/08/2021 Nutrition Answer [...] on filedocumented in this encounter Care Teams Mortuary Beautician Relationship Specialty Start Date End Date Elsewhere, Pcp PCP - General Internal Medicine 09/11/23 documented as of this encounter
--- OUTSIDE RECORDS SUMMARY | 2023-12-22 15:36 | XMS_ITS | Clinical Summary ---
Author Organization [facility] Address [address] [place] [address] Care Team Providers Care Police Clerk Name Role Phone Elsewhere, Pcp Primary Care Provider Unavailabl e Source Comments Patient records contain information from all sites at [facility]. For routine questions regarding patient records, call [phone] during business hours, M-F 8:00 AM - 5:00 PM Central Time. 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 Patient declined 04/08/2021 Do you belong to any clubs o r organizations such as jainism groups, unions, fraternal or athletic groups, or [...] housing, medical care, and heating? Hard 04/08/2021 [facility] - Occupational Stress [...] medical appointments or from getting medications? No 01/2 09/2021 In the past 12 months, has l [...] place to sleep or slept in a fdc (including now)? No 04/08/2021 Nutrition Answer Date [...] T Respiratory Rate 20 05/05/2021 2:12 PM PROCESS AUTOMATION ENGINEER Oxygen Saturation 98% 06/16/2021 8:55 PM CDT [...] (Annual PHQ-2) 03/13/2023 COVID-19 Vaccine (5 - 2023-2 5 season) 2023 04/29/2022, 05/26/2021, 06/30/2020, Additional history exists Influenza Vaccine (#1) 2023 , 03/08/2021, 01/27/2020, Additional history exists Fasting Glucose for Diabetes Screening 09/19/2025 09/19/2022, 02/28/2022, 05/05/2021, Additional history exists Colonoscopy 09/22/2032 09/22/2022 Colorectal Cancer Screening 09/22/2032 Procedures Procedure Name Priority Date/Time Associated Diagnosis Comments COMPREHENSIVE METABOLIC PANEL, S/P STAT 05/05/2021 3:03 PM PROCESS AUTOMATION ENGINEER THYROID-STIMULATING HORMONE-SENSITIVE (S-TSH) STAT 04/13/2021 5:56 PM PROCESS AUTOMATION ENGINEER from Last 3 Months or Most Recently Relevant to Health Maintenance Results * (ABNORMAL) Comprehensive Metabolic Panel (05/05/2021 3:03 PM PROCESS AUTOMATION ENGINEER) Pathologist [facility] Potassium, P 3.7 3.6 - 5.2 mmol/L 05/05/2021 3:29 PM PROCESS AUTOMATION ENGINEER SEG[facility] Sodium, P 136 135 - 145 mmol/L 05/05/2021 3:29 PM PROCESS AUTOMATION ENGINEER SEGUNDO Chloride, P 104 98 - 107 mmol/L 05/05/2021 3:29 PM PROCESS AUTOMATION ENGINEER SEGUNDO Bicarbonate, P 20(L) 22 - 29 mmol/L 05/05/2021 3:29 PM PROCESS AUTOMATION ENGINEER SEG[facility]DO Anion Gap, P 12 7 - 15 05/05/2021 3:29 PM PROCESS AUTOMATION ENGINEER SE[facility] BUN (Blood Urea Nitrogen), P 13 6 - 21 mg/dL 05/05/2021 3:29 PM PROCESS AUTOMATION ENGINEER SEG[facility]DO Creatinine 0.71 0.59 - 1.04 mg/dL 05/05/2021 3:29 PM PROCESS AUTOMATION ENGINEER SEGUNDO eGFR-Black/ >90 >=60 mL/min/BS A 05/05/2021 3:29 PM PROCESS AUTOMATION ENGINEER SEGUNDO Comment: ----ADDITIONAL INFORMATION---- Estimated GFR calculated using the 2009 CKD_EPI creatinine equation. eGFR Non-Black/ >90 >=60 mL/min/BS A 05/05/2021 3:29 PM PROCESS AUTOMATION ENGINEER SEGUNDO Comment: ----ADDITIONAL INFORMATION---- Estimated GFR calculated using the 2009 CKD_EPI creatinine equation. Calcium, Total, P 8.4(L) 8.6 - 10.0 mg/dL 05/05/2021 3:29 PM PROCESS AUTOMATION ENGINEER SEGUNDO Glucose, P 90 70 - 140 mg/dL 05/05/2021 3:29 PM PROCESS AUTOMATION ENGINEER SEGUNDO Protein, Total, P 6.0(L) 6.3 - 7.9 g/dL 05/05/2021 3:29 PM PROCESS AUTOMATION ENGINEER SEGUNDO Albumin, P 3.4(L) 3.5 - 5.0 g/dL 05/05/2021 3:29 PM PROCESS AUTOMATION ENGINEER SEGUNDO Aspartate Aminotransferase (AST), P 32 8 - 43 U/L 05/05/2021 3:29 PM PROCESS AUTOMATION ENGINEER SEGUNDO Alkaline Phosphatase, P 85 35 - 104 U/L 05/05/2021 3:29 PM PROCESS AUTOMATION ENGINEER SEGUNDO Alanine Aminotransferase (ALT), P 20 7 - 45 U/L 05/05/2021 3:29 PM PROCESS AUTOMATION ENGINEER SEGUNDO Bilirubin, Total, P 0.3 <=1.2 mg/dL 05/05/2021 3:29 PM PROCESS AUTOMATION ENGINEER SEGUNDO Blood (Blood, Venous) 05/05/2021 3:03 PM PROCESS AUTOMATION ENGINEER 05/05/2021 3:11 PM PROCESS AUTOMATION ENGINEER Tyra Ramos P.A.-C., M.S. LAB BLOOD ADD-ON [facility] [address] [facility] [place] [address], [place] [facility] [address] [place] [address] * S-TSH (Thyroid-Stimulating Hormone - Sensitive) (04/13/2021 5:56 PM PROCESS AUTOMATION ENGINEER) TSH, Sensitive 0.8 0.3 - 4.2 mIU/L 04/13/2021 7:29 PM PROCESS AUTOMATION ENGINEER [facility] Blood (Blood, Venous) 04/13/2021 5:56 PM PROCESS AUTOMATION ENGINEER 04/13/2021 6:15 PM PROCESS AUTOMATION ENGINEER Panchito Meade P.A.-C., P.A., M.S. LAB BLO OD ADD-ON [facility] [address] [place] [address], [place] [facility] [address] [place] [address] from Last 3 Months or Most Recently Relevant to Health Maintenance Care Teams Police Clerk Relationship Specialty Start Date End Date Elsewhere, Pcp PCP - General Internal Medicine 09/11/23
--- OUTSIDE RECORDS SUMMARY | 2023-12-22 15:36 | XMS_ITS | Clinical Summary ---
Author Organization [facility] Address [place], [place] [address] Care Team Providers Care Crm Technical Lead Name Role Phone Montana Lomeli MD Unavailable [phone] Leyla Sands DO Primary Care Provider [phone] Allergies Active Allergy Reactions Criticality Noted Date [...] mouth 2 times daily if needed. 0 1 Active EPINEPHrine (EPIPEN) 0.3 mg/0.3 mL (1:1,000) injectionIndications :Urticaria, unspecified Inject 0.3 mg intramuscular one time if needed (for allergic reaction). 2 mL 2 4 Active melatonin 3 mg tabletIndications:Sl eep concern Take 2 tablets by mouth at bedtime. 0 8 Active nebulizer accessories kitIndications:Mild persistent asthma without complication For home use. Length of need: 99 months 1 Kit 8 Active VIOS FOR HOME USE. LENGTH OF NEED: 99 MONTHS 0 8 Active fexofenadine (ESTUARDO) 180 mg tablet Take 1 tablet by mouth once daily. 0 9 Active albuterol-ipratropiu m (DUONEB) (2.5-0.5 mg) in 3 mL NEBULIZATION solutionIndications: Mild persistent asthma without complication Inhale 3 mL via a nebulizer 4 times daily if needed (asthma). 180 mL 3 0 Active Blood Pressure Kit Med & Lrg kitIndications:H/O ambulatory blood pressure monitoring As directed once daily if needed. 1 Kit 0 Active mometasone (NASONEX) (50 mcg each actuation) nasal sprayIndications:Sea eladio allergic rhinitis due to pollen Inhale 2 Sprays into both nostrils 2 times daily. 0 0 Active albuterol HFA (PRO-AIR; VENTOLIN; PROVENTIL) 90 mcg/actuation inhalerIndications:M ild persistent asthma without complication TAKE 1-2 PUFFS BY MOUTH EVERY 4 HOURS NEEDED. 8.5 g 1 Active cholecalciferol, Vitamin D3, 2,000 unit tablet Daily Active hydrocortisone 2.5% cream APPLY TO AFFECTED AREA ON FACE 1-2X DAILY FOR 2 WEEKS AT A TIME REPEAT NEEDED FOR FLARES 2 Active divalproex (DEPAKOTE) 500 mg Delayed-Release tabletIndications:Ot her migraine without status migrainosus, not intractable Take 1 Tablet (500 mg) by mouth at bedtime. 90 Tablet 3 3 Active fluticasone propion-salmeteroL (ADVAIR) 250-50 mcg/Dose diskus inhalerIndications:M oderate persistent asthma without complication Inhale 1 Puff by mouth two times daily. 180 Each 3 3 Active meclizine chewable (ANTIVERT) 25 mg tabletIndications:Ot her migraine without status migrainosus, not intractable Chew 1 Tablet (25 mg) by mouth 2 times daily if needed (dizziness). 90 Tablet 1 3 Active mupirocin (BACTROBAN OINTMENT) ointment As directed 3 Active levothyroxine (SYNTHROID) 125 mcg tabletIndications:Ac quired hypothyroidism Take 1 Tablet (125 mcg) by mouth once daily. Best if taken on empty stomach. 90 Tablet 1 3 Active LORazepam (ATIVAN) 1 mg tablet Take 1 Tablet by mouth at bedtime. [facility] 3 Active ondansetron (ZOFRAN) 8 mg tabletIndications:Na usea and vomiting, unspecified vomiting type Take 1 Tablet (8 mg) by mouth every 8 hours if needed for Nausea/Vomiting. 8 Tablet 2 3 Active cloNIDine HCL (CATAPRES) 0.1 mg tabletIndications:Ps ychophysiological insomnia TAKE 1 TABLET(0.1 MG) BY MOUTH THREE TIMES DAILY 270 Tablet 3 Active primidone (MYSOLINE) 50 mg tabletIndications:Es sential tremor TAKE 1 TABLET BY MOUTH DAILY AT BEDTIME 30 Tablet 4 Active ketoconazole 2% shampoo (NIZORAL) 2 % shampooIndications:S calp dermatophytosis Shampoo the hair every other day. 120 mL 4 Active tiZANidine (ZANAFLEX) 2 mg tabletIndications:Consuelo mbar facet arthropathy TAKE 1 TABLET(2 MG) BY MOUTH EVERY 8 HOURS NEEDED FOR MUSCLE SPASM 120 Tablet 4 Active gabapentin (NEURONTIN) 300 mg capsuleIndications:O ther migraine without status migrainosus, not intractable TAKE 3 CAPSULES(900MG) BY MOUTH THREE TIMES DAILY 810 Capsule 4 Active benzoyl peroxide 10% topical (CLEARASIL) 10 % gelIndications:Pruri go nodularis Apply topically to affected area(s) every morning. Daily routine for prurigo nodularis. 90 g 3 4 Active montelukast (SINGULAIR) 10 mg tabletIndications:Mi ld persistent asthma without complication,Seasona l allergic rhinitis due to pollen TAKE 1 TABLET(10 MG) BY MOUTH AT BEDTIME 90 Tablet 4 Active clindamycin phosphate 1% topical 1 % external solutionIndications: Prurigo nodularis Apply topically to affected area(s) two times daily. To scalp. Daily routine for prurigo nodularis. 60 mL 1 4 Active clobetasol 0.05 % gelIndications:Pruri go nodularis Apply topically to affected area(s) two times daily. As needed to scalp for itch related to prurigo nodularis 30 g 4 Active hydrOXYzine HCL (ATARAX) 25 mg tabletIndications:Pr uritic condition Take 1 Tablet (25 mg) by mouth every 6 hours if needed for Itching. 40 Tablet 1 4 Active omeprazole (PRILOSEC) 20 mg Delayed-Release capsuleIndications:G astroesophageal reflux disease, unspecified whether esophagitis present,Hiatal hernia TAKE 1 CAPSULE(20 MG) BY MOUTH TWICE DAILY BEFORE MEALS 180 Capsule 4 Active busPIRone (BUSPAR) 30 mg tabletIndications:PT SD (post-traumatic stress disorder) TAKE 1 TABLET(30 MG) BY MOUTH TWICE DAILY 60 Tablet 4 Active FLUoxetine (PROZAC) 40 mg capsuleIndications:P TSD (post-traumatic stress disorder) Take 2 Capsules (80 mg) by mouth once daily. 60 Capsule 4 Active FLUoxetine (PROZAC) 40 mg capsuleIndications:P TSD (post-traumatic stress disorder) Take 2 Capsules (80 mg) by mouth once daily. 60 Capsule 4 12/12/19 24 Discontinu ed(Reorder (E-cancel not sent)) busPIRone (BUSPAR) 30 mg tabletIndications:PT SD (post-traumatic stress disorder) Take 1 Tablet (30 mg) by mouth two times daily. 60 Tablet 2 4 12/12/19 24 Discontinu ed(Reorder (E-cancel not sent)) Active Problems Problem Noted Date Diagnosed Date Prurigo nodularis 07/18/2023 Overview (07/18/2023): Chronic scalp lesions with excoriations. Scalp lesions [...] 09/11/19 DDD (degenerative disc disease), cervical 2018 Overview (10/10/2018): MRI 2011 mild disc buldge at C5-6 Other chronic sinusitis 09/26/2018 Posttraumatic stress disorder 01/18/2018 Controlled substance agreement signed 07/28/2016 Overview (07/28/2016): Signed: 06/13/14 Dr. 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 EGD 09/2017 Walker 2 celiac disease Vitamin D deficiency 08/04/2010 Leg cramps 04/20/2010 Anemia, iron deficiency 04/20/2010 Migraine 05/15/2009 Urticaria, unspecified 02/01/2008 Overview (02/01/2008): Angioedema from raspberries Unspecified hypothyroidism 09/25/2007 Moderate persistent asthma without complication 07/23/2007 Overview (07/23/2007): Mild intermittent Other tear of cartilage or meniscus of knee, cur rent 04/04/2007 Overview (04/04/2007): pt has opted to not have surgery [...] migraine without mention of status migrainosus 05/15/2009 Overview (02/01/2008): Hx of migraines Encounters Date Type Department Care Team Description 12/09/2023 Refill [facility] [address] [place] [address] Avril Stephen MD Refill Request (Buspirone) 11/22/2023 Refill [facility] [address] [place] [address] Bradly Rod MD Refill Request 11/03/2023 Refill [facility] [address] [place] [address] Avril Stephen MD Refill Request (Fluoxetine) 10/29/2023 Refill [facility] [address] [place] [address] Leyla Sands DO Refill Request (Omeprazole) 10/17/2023 10:15 AM CDT Office Visit [address] [address] Abby Coleman MD ER Follow up (pneumonia ); Cough (cough, SOB); Derm Problem (Scalp infection. ); Pneumonia (states oxygen was in the 70s in the ER and thinks its low today. ) 10/16/2023 Travel 10/13/2023 7:06 PM CDT - 10/13/2023 7:07 PM CDT Emergency [facility] [address] [place] [address] Candi Omer NP Discharge Disposition: Against Medical Advice or Discontinued Care 10/13/2023 Travel 10/06/2023 8:22 PM CDT - 10/06/2023 10:40 PM CDT Emergency [facility] [address] [place] [address] Abby Pantoja MD Pneumonia of right lower lobe due to infectious organism (Primary Dx); Prurigo nodularis; Pruritic condition Discharge Disposition: Home Self Care 10/06/2023 Travel 09/30/2023 Refill [facility] [address] [place] [address] Avril Stephen MD Refill Request (Fluoxetine) 2023 10:25 AM CDT Office Visit [facility] [address] [place] [address] VotelBradly MD Concerns (Itchy scalp, lesions, seen on 04/27/23 for same) 2023 Travel from Last 3 Months Immunizations Name Administration Dates Next Due AMB Influenza, IIV3 (Age >=3 years)(Flu Clinic Only) 01/01/2008 AMB Influenza, IIV4 PF (=>6 mos Flulaval,Fluzone Fluarix)(Flu Clinic Only) 01/08/2015 COVID-19 vaccine ([employer] 30mcg/0.3mL) 12YO+ BIVALENT PF, MDV 04/29/2022 COVID-19 vaccine ([employer] 30mcg/0.3mL) 12YO+ NORIS-SUCROSE PF, MDV 05/26/2021 [...] History Relation Name Comments Hypertension Father b 194 Cancer-breast Maternal Aunt great aunt Cancer-prostate Maternal Grandfather Good Health Mother b 194 Psychiatric illness Mother depressi on Diabetes Sister Anesthesia Problem No Family History Blood Disease No Family History Relation Name Status Comments Brother Alive Father Alive Maternal Aunt Maternal Grandfather Mother Alive Sister Alive Social History Tobacco Use Types Packs/Day Years Used Date Smoking Tobacco: Every Day Cigarettes 0.3 15.8 Started: 2008 Smokeless Tobacco: Never Tobacco Cessation:Ready [...] 10/13/2023 5:24 PM CDT Plan of Treatment Upcoming Encounters Date Type Department Care Team (Late st Contact Info) Description 01/01/2024 1:45 PM CDT Office Visit [facility] [address] [place] [address] Leyla Sands, [address] [place] [address] Health Maintenance Due Date Last Done Comments Mammogram for age 45-75 12/07/2018 12/08/19 18, 10/23/2012, 05/07/2010 Zoster (shingles) series for age 50+ (1 of 2) 2022 Pap test for age 21-65 11/29/2022 8, 11/29/2017, 05/28/2013, Additional history exists Depression screening for age 12+ 09/01/2023 08/31/2022, 08/30/2022, 08/29/2022, Additional history exists COVID-19 vaccine series ( season) 2023 04/29/2022, 05/26/2021, 06/30/2020, Additional history exists Influenza for age 50-64 [...] 03/26/2013, 03/22/2012 Medical Devices Implanted Type Area Formal Wear Rental Clerk Device Identifier Shelf Expiration Date Model / Serial / Lot Stent Ent Reg Steroid-Releas ing Propel Bio[employer]orb - [id number] Implanted:Qty: 1 on 01/07/2019 by Eliseo Hansen MD at [facility] Ent Implants Nose [employer] one sinus implant 09/01/2019 [id number]# / / [id number] Description:Propel One sinus implant Nominal length: 23mm Stent Ent Reg Steroid-Releas ing Propel Bioabsorb - [id number] Implanted:Qty: 1 on 01/07/2019 by Elieso Hansen MD at [facility] Ent Implants Nose [employer] one sinus implant 10/14/2019 [id number]# / / [id number] Description:Propel One sinus implant Nominal length: 23mm Procedures Procedure Name Priority Date/Time Associated Diagnosis Comments XR CHEST 2 VIEWS PA AND LATERAL STAT 10/06/2023 9:16 PM CDT COLONOSCOPY 09/22/2022 11:27 AM CDT LIPID PANEL W REFLEX MEASURED LDL Routine 02/28/2022 9:23 AM PIPED POCKET MACHINE OPERATOR Mixed hyperlipidemia XR MAMMO BILAT SCREENING Routine 12/07/2017 4:01 PM CDT Visit for screening mammogram HOST COORDINATOR THIN PREP PAP SCREEN IMAGED Routine 11/29/2017 11:22 AM CDT Pap smear for cervical cancer screening ANTI HIV 1/2 Routine 03/26/2013 11:54 AM PIPED POCKET MACHINE OPERATOR Screen for STD (sexually transmitted disease) ANTI HCV Routine 03/26/2013 11:54 AM PIPED POCKET MACHINE OPERATOR Screen for STD (sexually transmitted disease) from [...] For Patients: ??As a result of the Cures Act, medical imaging exams and procedure [...] adequate candidate for conscious sedation. The endoscope [id number] was passed through the anus andadvanced to [...] W REFLEX MEASURED LDL (02/28/2022 9:23 AM PIPED POCKET MACHINE OPERATOR) CHOLESTEROL,TOTAL 162 100 - 199 mg/dL 03/01/2022 7:23 AM [facility] TRIGLYCERIDES 128 <150 mg/dL 03/01/2022 7:23 AM [facility] HDL CHOLESTEROL 44 >40 mg/dL 7:23 AM PIPED POCKET MACHINE OPERATOR [facility] NON-HDL CHOLESTEROL 118 <145 mg/dl 03/01/2022 7:23 AM [facility] CHOL/HDL RATIO 3.68 <4.50 03/01/2022 7:23 AM [facility] LDL CHOLESTEROL 92 <=130 mg/dL 03/01/2022 7:23 AM [facility] VLDL CHOLESTEROL 26 <=30 mg/dL 03/01/2022 7:23 AM [facility] PROVIDER ORDERED STATUS RANDOM 03/01/2022 7:23 AM PIPED POCKET MACHINE OPERATOR [facility] Blood BLOOD SPECIMEN / Unknown Venipuncture / Unknown 02/28/2022 9:23 AM PIPED POCKET MACHINE OPERATOR 02/28/2022 9:23 AM PIPED POCKET MACHINE OPERATOR Bj Noe MD [facility]Y [facility] [address] [place] [address], [place] * XR MAMMO BILAT SCREENING (12/07/2017 4:01 PM CDT) Anatomical Region Laterality Modality BREASTS, Breast Left, Breast Right Bilateral Mammography Impressions 12/08/2017 3:27 PM CDT ??BI-RADS Category 0: Incomplete: Need Additional Imaging Evaluation and/or Prior Mammograms for Comparison RECOMMENDATION: ??BILATERAL breast ultrasound. ?? Jose Alberto Wesley D.O. Diagnostic Radiologist [email or web address] LORRAINE/lizeth ?? / Narrative 12/08/2017 3:27 PM CDT [...] seen. ?? Bj Noe MD MAMMO * HOST COORDINATOR THIN PREP PAP SCREEN IMAGED (11/29/2017 11:22 AM CDT) Case Report Gynecologic Cytology Report ? Case: [id number] ? Authorizing Provider: ??Bj Noe MD ??Collected: ? 11/29/2017 1122 ? Ordering Location: ? [facility] ?? Received: ?11/29/2017 1152 ? Clinic ? First Screen: ?Hubert Nicholas ? Specimen: ?HOST COORDINATOR ThinPrep Vial Screening, Cervical ? 12/08/2017 2:35 PM CDT [facility] INTERPRETATION/ RESULT NEGATIVE FOR INTRAEPITHELIAL LESION OR MALIGNANCY (NIL) (none) 12/08/2017 2:35 PM CDT [facility] IMEN ADEQUACY Satisfactory for evaluation No endocervical component seen 12/08/2017 2:35 PM CDT [facility] HPV REQUEST HPV and PAP 12/08/2017 2:35 PM CDT [facility] Date of LMP 11/12/17 12/08/2017 2:35 PM CDT [facility] Last Pap Date 05/28/13 12/08/2017 2:35 PM CDT [facility] Last Pap Result NIL 8 2:35 PM CDT [facility] Abnormal Pap or [place] Bx in last 5 years No 12/08/2017 2:35 PM CDT [facility] Menstrual Status Regular Periods 12/08/2017 2:35 PM CDT [facility] [place] Bx Done Today No 12/08/2017 2:35 PM CDT [facility] Additional Information None given 12/08/2017 2:35 PM CDT [facility] Automated Review Successful 12/08/2017 2:35 PM CDT [facility] Comment:Specimen processed s uccessfully by automated ruffling hemmer automatic device, ThinPrep Imaging System, [employer] ANCILLARY TESTING HOST COORDINATOR HPV Ordered, Please see separate report 12/08/2017 2:35 PM CDT [facility] Note The pap test is a [...] lesions. Cytology is screened and interpreted at [facility] - [address], [place] [address] [facility] - [address] [place] [address]; [place] [address] and [facility] - [address]; [place] [address] and [facility] [address]; [place] [address] 12/08/2017 2:35 PM CDT [facility] Other (Cervical) Non-Blood / Unknown 11/29/2017 11:22 AM CDT 11/29/2017 11:52 AM CDT Bj Noe MD PATHOLOGY/CYTOLO GY [facility] [address] [place] [address], * ANTI HCV (03/26/2013 11:54 AM PIPED POCKET MACHINE OPERATOR) ANTI HCV Non-reacti ve [facility] Blood specimen (specimen) BLOOD SPECIMEN / Unknown 03/26/2013 11:54 AM PIPED POCKET MACHINE OPERATOR 03/26/2013 11:52 AM PIPED POCKET MACHINE OPERATOR Lupis GOETZ SEND OUTS [facility] INTERNAL ZIP [address] [address] [place] [address] * ANTI HIV 1/2 (03/26/2013 11:54 AM PIPED POCKET MACHINE OPERATOR) ANTI HIV 1/2 Non-reacti ve [facility] Blood specimen (specimen) BLOOD SPECIMEN / Unknown 03/26/2013 11:54 AM PIPED POCKET MACHINE OPERATOR 03/26/2013 11:52 AM PIPED POCKET MACHINE OPERATOR Lupis GOETZ SEND OUTS [facility] [place] ZIP [address] [address] [place] [address] from Last 3 Months or Most Recently Relevant to Health Maintenance Insurance Payer Benefit Plan / Group Subscriber ID Effective Dates Phone Address Type [employer] INS [id number] 2013-Presen t [address] [place] [address] MEDICARE PART A - HB USE ONLY MEDICARE PART A HB ONLY [id number] 2009-Prese nt ATTN: CLAIMS [address] [place] [address] MEDICARE PART A - HB USE ONLY MEDICARE PART A HB ONLY [id number] 2009-Prese nt ATTN: CLAIMS [address] [place] [address] MEDICARE PART B - HB USE ONLY MEDICARE PART B HB ONLY [id number] 2009-Prese nt ATTN: CLAIMS [address] [place] [address] HUMANA GOLD MR HUMANA CHOICE PPO MR [id number] 2023-Presen t [address] [address] [place] [address] Advance Directives * Full Code (Latest Code [...] Status Discussion: Per Existing Order Care Teams Crm Technical Lead Relationship Specialty Start Date End Date Leyla [place] [address] PCP - General Family Practice 07/05/22 Montana Lomeli MD Psychiatry 05/28/13
--- OUTSIDE RECORDS SUMMARY | 2023-12-22 15:36 | XMS_ITS | Referral Summary ---
Author Organization [facility] Address [address] [place] [address] Care Team Providers Care Banking Pin Adjuster Name Role Phone Elsewhere, Pcp Primary Care Provider Unavailabl e Source Comments Patient records contain information from all sites at [facility]. For routine questions regarding patient records, call [phone] during business hours, M-F 8:00 AM - 5:00 PM Central Time. Record requests for emergency care only can be directed to [phone] at any time.[facility] Allergies Active Allergy Reactions Criticality Noted [...] (05/25/2021): Added automatically from request for surgery [id number] Body Mass Index 35.0 To 35.9 Adult 08/26/2020 Pain Sacroiliac 08/26/2020 Myalgia 08/26/2020 Pain Low Back Unspecified 08/26/2020 Adjustment Disorder With Depressed Mood 09/11/19 20 Degeneration Disc Cervical 10/10/2018 Overview (10/08/2020): MRI 2011 mild disc buldge at C5-6 MRI 2012 mild disc buldge at C5-6 Other Chronic Sinusitis 09/26/2018 Posttraumatic Stress Disorder Brief 01/18/2018 Other Group Home Current Drug Therapy 07/28/2016 Overview (10/08/2020): Signed: [...] 2014:L4-L5 Interlam epidural steroid injection by Dr. Pérze. ~ September 2015:L5-S1 Left interlaminar epidural steroid [...] often do you attend chur ch or adventist services? Patient declined 04/08/2021 Do you belong to any clubs o r organizations such as baptist groups, unions, fraternal or athletic groups, or [...] housing, medical care, and heating? Hard 04/08/2021 [facility] - Occupational Stress [...] place to sleep or slept in a m[facility]p (including now)? No 04/08/2021 Nutrition Answer Date [...] T Respiratory Rate 20 05/05/2021 2:12 PM LICENSING COORDINATOR Oxygen Saturation 98% 06/16/2021 8:55 PM CDT Inhaled Oxygen Concentration - - Weight 72 kg (158 lb 13.5 oz) 06/29/2021 8:25 AM CDT Height 157.5 cm (5' 2) 11/05/2019 1:39 PM CDT Body Mass Index 29.05 11/05/2019 1:39 PM CDT Plan of Treatment Not on file Procedures Procedure Name Priority Date/Time Associated Diagnosis Comments COMPREHENSIVE METABOLIC PANEL, S/P STAT 05/05/2021 3:03 PM LICENSING COORDINATOR THYROID-STIMULATING HORMONE-SENSITIVE (S-TSH) STAT 04/13/2021 5:56 PM LICENSING COORDINATOR from Last 3 Months or Most Recently Relevant to Health Maintenance Results * (ABNORMAL) Comprehensive Metabolic Panel (05/05/2021 3:03 PM LICENSING COORDINATOR) Potassium, P 3.7 3.6 - 5.2 mmol/L 05/05/2021 3:29 PM LICENSING COORDINATOR SEGUNDO Sodium, P 136 135 - 145 mmol/L 05/05/2021 3:29 PM LICENSING COORDINATOR SEGUNDO Chloride, P 104 98 - 107 mmol/L 05/05/2021 3:29 PM LICENSING COORDINATOR SEGUNDO Bicarbonate, P 20(L) 22 - 29 mmol/L 05/05/2021 3:29 PM LICENSING COORDINATOR SEGUNDO Anion Gap, P 12 7 - 15 05/05/2021 3:29 PM LICENSING COORDINATOR SEGUNDO BUN (Blood Urea Nitrogen), P 13 6 - 21 mg/dL 05/05/2021 3:29 PM LICENSING COORDINATOR SEGUNDO Creatinine 0.71 0.59 - 1.04 mg/dL 05/05/2021 3:29 PM LICENSING COORDINATOR SEGUNDO eGFR-Black/ >90 >=60 mL/min/BS A 05/05/2021 3:29 PM LICENSING COORDINATOR SEGUNDO Comment: ----ADDITIONAL INFORMATION---- Estimated GFR calculated using the 2009 CKD_EPI creatinine equation. eGFR Non-Black/ >90 >=60 mL/min/BS A 05/05/2021 3:29 PM LICENSING COORDINATOR SEGUNDO Comment: ----ADDITIONAL INFORMATION---- Estimated GFR calculated using the 2009 CKD_EPI creatinine equation. Calcium, Total, P 8.4(L) 8.6 - 10.0 mg/dL 05/05/2021 3:29 PM LICENSING COORDINATOR SEGUNDO Glucose, P 90 70 - 140 mg/dL 05/05/2021 3:29 PM LICENSING COORDINATOR SEGUNDO Protein, Total, P 6.0(L) 6.3 - 7.9 g/dL 05/05/2021 3:29 PM LICENSING COORDINATOR SEGUNDO Albumin, P 3.4(L) 3.5 - 5.0 g/dL 05/05/2021 3:29 PM LICENSING COORDINATOR SEGUNDO Aspartate Aminotransferase (AST), P 32 8 - 43 U/L 05/05/2021 3:29 PM LICENSING COORDINATOR SEGUNDO Alkaline Phosphatase, P 85 35 - 104 U/L 05/05/2021 3:29 PM LICENSING COORDINATOR SEGUNDO Alanine Aminotransferase (ALT), P 20 7 - 45 U/L 05/05/2021 3:29 PM LICENSING COORDINATOR SEGUNDO Bilirubin, Total, P 0.3 <=1.2 mg/dL 05/05/2021 3:29 PM LICENSING COORDINATOR SEGUNDO Blood (Blood, Venous) 05/05/2021 3:03 PM LICENSING COORDINATOR 05/05/2021 3:11 PM LICENSING COORDINATOR Tyra Ramos P.A.-C., M.S. LAB BLOOD ADD-ON Performing Organization Address City/[facility]/ZIP Co de Phone Number [facility] [address] [place] [address], [facility] SEGUNDO [facility]- [address] [address] * S-TSH (Thyroid-Stimulating Hormone - Sensitive) (04/13/2021 5:56 PM LICENSING COORDINATOR) TSH, Sensitive 0.8 0.3 - 4.2 mIU/L 04/13/2021 7:29 PM LICENSING COORDINATOR AUST Blood (Blood, Venous) 04/13/2021 5:56 PM LICENSING COORDINATOR 04/13/2021 6:15 PM LICENSING COORDINATOR Panchito Meade P.A.-C., P.A., M.S. LAB BLO OD ADD-ON [facility] [address] [place] [address], [place] [facility] - [facility] [address] [place] [address] from Last 3 Months or Most Recently Relevant to Health Maintenance Care Teams Banking Pin Adjuster Relationship Specialty Start Date End Date Elsewhere, Pcp PCP - General Internal Medicine 09/11/23
== END 2023-12-22 15:55 | disposition home or self-care (01) ==
PROVIDERS: Emergency Provider Family Medicine; PCP Family Medicine
DX: L30.9 Dermatitis, unspecified (principal); F42.4 Excoriation (skin-picking) disorder
CPT/HCPCS: 99283; 99284

== ENCOUNTER 2024-10-19 12:29 | Emergency (ER) | payer OTHER, SELFPAY ==
--- OUTSIDE RECORDS SUMMARY | 2011-10-24 06:41 | XMS_ITS | Continuity of Care Document ---
Author Organization [facility] [place] Address [address] [place] [address] Phone Care Team Providers Care Superintendent Generating Plant Name Role Phone Panchito Jones MD Unavailable Unavailable Advance Directives Directive Yes / No Effective Date File Name No Information Encounters Encounter Description Practice Location Reason(s) For Visit Diagnoses Date Provider Providers Copied on Encounter COURT [place], [address] [facility] [address], [place], [place], [address], [place] tel:[phone] [facility] No Information Karen Flanagan. [address], [place], [address], [place]. tel:[phone] Referring Provider: Rommel Ryder MD, [address], [place], [address]. tel:[phone] Family History Family Member Type Diagnosis Age At Onset No Information Payers Payer name Insurance type Covered green party ID Authoriza tion(s) No Information Social History Type Description Quantity Date Captured Comments Sex Female Smoking Status No Information Chief Complaint And Reason For Visit No Information Reason For Referral Reason For Referral No Information History Of Present Illness Encounter Date Complaint History Of Prese nt Illness No Information Functional Status Date Functional Assessmen t No Information Instructions Date Instruction Additional Infor mation No Information Assessments Type Assessment Date No Information Patient Care Teams Name Effective Dates (start - stop) Status Members No Information
--- OUTSIDE RECORDS SUMMARY | 2011-10-24 06:41 | XMS_ITS | Continuity of Care Document ---
Author Organization [facility] [place] Address [address] [place] [address] Phone Care Team Providers Care Acid Pumper Name Role Phone Panchito Jones MD Unavailable Unavailable Advance Directives Directive Yes / No Effective Date File Name No Information Encounters Encounter Description Practice Location Reason(s) For Visit Diagnoses Date Provider Providers Copied on Encounter COURT [place], [address] [facility], [place], [place], [address], [place] tel:[phone] [facility] No Information Karen Flanagan. [address] [facility] [address], [place], [address], [place]. tel:[phone] Referring Provider: Rommel Ryder MD, [address] [facility] [address], [place], [address]. tel:[phone] Family History Family Member Type Diagnosis Age At Onset No Information Payers Payer name Insurance type Covered republican ID Authoriza tion(s) No Information Social History [...]
--- OUTSIDE RECORDS SUMMARY | 2024-10-19 12:31 | XMS_ITS | Clinical Summary ---
Author Organization [facility] Address [address] , [address] [place] [address] Phone Care Team Providers Care Equal Opportunity Specialist Name Role Phone [facility] Unavailable Unava ilable Conditions or Problems Problem Name Problem Code Onset Date Status Entry Date Provider Comment Standard Description Annotate Tremor 78556922 (SNOMED CT) 04/05 Active 04/05 Yaima Ledesma DNP,SECURITY PROFESSIONAL,CN P Tremor Occipital neuralgia, bilateral M54.81 (ICD-10-CM) 11/11 Active 11/11 Yaima Ledesma DNP,SECURITY PROFESSIONAL,CN P Occipital neuralgia Cervical spasm 46727840 (SNOMED CT) 11/11 Active 11/11 Yaima Nicolle Ledesma DNP,SECURITY PROFESSIONAL,CN P Muscle spasm of head and/or neck 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 (ICD-10-CM) 07/30 Active 07/30 Vladimir Pa Jr, MD Circadian rhythm sleep disorder, delayed sleep phase type Parasomnia 44003092 (SNOMED CT) 11/09 Active 11/15 Rasmita Jackson SECURITY PROFESSIONAL STORAGE BRINE WORKER Parasomnia Neck pain, chronic 220765651537 7 (SNOMED CT) 09/14 Active 09/14 Rasmita Paz SECURITY PROFESSIONAL STORAGE BRINE WORKER Chronic neck pain Periodic limb movement disorder (PSG 2018: severe; 47/hr) 831525220 (SNOMED CT) 08/01 Active 08/02 Vladimir Pa Jr, MD Periodic limb movement disorder Obstructive sleep apnea (PSG 2018: mild; AHI 6; RDI 7; roz 83%) 16787984 (SNOMED CT) 08/01 Active 08/02 Vladimir Pa Jr, MD Obstructive sleep apnea syndrome Insomnia 843280975 (SNOMED CT) 07/27 Active 07/27 Vladimir Pa Jr, MD Insomnia Hypersomnia (ESS 17; NL MSLT 2010 [facility]) 79153271 (SNOMED CT) 07/27 Active 07/27 Vladimir Pa Jr, MD Hypersomnia NECK PAIN 85036560 (SNOMED CT) 04/09 Resolved 04/09 Rommel Ryder MD Neck pain SPASM OF MUSCLE 72549646 (SNOMED CT) 07/26 Resolved 07/27 Rommel Ryder MD Spasm CELIAC DISEASE 306782083 (SNOMED CT) Resolved Rommel Ryder MD Celiac disease FACIAL WEAKNESS 90444909 (SNOMED CT) 11/03 Resolved 11/03 Rommel Ryder MD Weakness of face muscles ANEMIA 919877813 (SNOMED CT) Resolved Rommel Ryder MD Anemia LUMBAR STRAIN 331459030 (SNOMED CT) 06/24 Resolved 06/24 Rommel Ryder MD Low back strain CERVICAL STRAIN 620840415 (SNOMED CT) 06/24 Resolved 06/24 Rommel Ryder MD Strain of neck muscle HEADACHE 21017515 (SNOMED CT) 10/28 Resolved 10/28 Rommel Ryder MD Headache FATIGUE (NL MSLT) 780.79 (ICD-9-CM) 12/06 Resolved 12/06 Rommel Ryder MD Other malaise and fatigue CHRONIC MIGRAINE W/O AURA W/O INTRACTABLE W/O SM G43.709 (ICD-10-CM) Active Phyllis Wong RN, MS, SECURITY PROFESSIONAL, STORAGE BRINE WORKER Chronic migraine without aura, not intractable, without status migrainosus ANEMIA 647537367 (SNOMED CT) Removed Phyllis Wong RN, MS, SECURITY PROFESSIONAL, STORAGE BRINE WORKER Anemia CELIAC DISEASE 546132463 (SNOMED CT) Removed Phyllis Wong RN, MS, SECURITY PROFESSIONAL, STORAGE BRINE WORKER Celiac disease NECK PAIN 69827217 (SNOMED CT) 04/09 Removed 04/09 Yaima Ledesma DNP,SECURITY PROFESSIONAL,CN P Neck pain FATIGUE (NL MSLT) 780.79 (ICD-9-CM) 12/06 Removed 12/06 Vladimir Pa Jr, MD Other malaise and fatigue HYPERSOMNIA 97494423 (SNOMED CT) 09/03 Resolved 09/03 Vladimir Pa Jr, MD Hypersomnia SLEEP DISTURBANCE, NOS 69620232 (SNOMED CT) 08/30 Resolved 08/30 Vladimir Pa Jr, MD Dyssomnia HYPERSOMNIA 44670867 (SNOMED CT) 09/03 Removed 09/03 Vladimir Pa Jr, MD Hypersomnia SNORING 68700679 (SNOMED CT) 09/03 Active 09/03 Vladimir Pa Jr, MD Snoring SLEEP DISTURBANCE, NOS 62411820 (SNOMED CT) 08/30 Removed 08/30 Yaima Ledesma DNP,SECURITY PROFESSIONAL,CN P Dyssomnia SPASM OF MUSCLE 00646977 (SNOMED CT) 07/26 Removed 07/27 Yaima Ledesma DNP,SECURITY PROFESSIONAL,CN P Spasm HEADACHE 99827147 (SNOMED CT) 10/28 Removed 10/28 Rommel Ryder MD Headache FACIAL WEAKNESS 76370498 (SNOMED CT) 11/03 Removed 11/03 Carson Luther MD Weakness of face muscles LUMBAR STRAIN 028125168 (SNOMED CT) 06/24 Removed 06/24 Valerio Zee MD Low back strain CERVICAL STRAIN 979616118 (SNOMED CT) 06/24 Removed 06/24 Valerio Zee MD Strain of neck muscle Medications Medication Instructions Start Date Stop Date Generic Name NDC Provider DIVALPROEX SODIUM ER 500 MG [id number] Take 1 tablet by mouth every night 08/05 divalproex 14090344808 Nay Tan PA-C DIVALPROEX SODIUM ER 500 MG [id number] TAKE 1 TABLET BY MOUTH AT BEDTIME *APPOINTMENT NEEDED* 10/05 divalproex 68319446069 Nay Tan PA-C NURTEC 75 MG TBDP Take 1 tab by mouth (place on or under tongue) at migraine onset. Maximum dose: 1 tab/24 hrs rimegepant 98652449100 Nay Tan PA-C TIZANIDINE HCL 2 MG TABS Take 1 tablet by mouth every eight hours as needed 04/01 tizanidine 19939640333 Rommel Ryder MD FLUOXETINE HCL 40 MG CAPS Take 2 capsule by mouth every morning 07/21 fluoxetine 10729164272 Rommel Ryder MD WIXELA INHUB 100-50 MCG/ACT AEPB Use 1 by mouth twice a day 11/04 fluticasone propion-salmeterol 70241600100 Rommel Ryder MD OMEPRAZOLE 20 MG CPDR omeprazole 00998844518 Nay Tan PA-C MELATONIN TABLET 3 mg every night 08/09 MELATONIN TABLET Nay Tan PA-C MONTELUKAST SODIUM 10 MG TABS Take 1 tablet by mouth every night 11/11 montelukast 16955286141 Rommel Ryder MD LEVOTHYROXINE SODIUM 125 MCG TABS 07/26 levothyroxine 30143925592 Rommel Ryder MD GABAPENTIN 300 MG CAPS 900 mg by mouth three times a day 05/06 gabapentin 82322864325 Rommel Ryder MD DIVALPROEX SODIUM ER 500 MG [id number] Take 1 tablet by mouth every night 08/05 divalproex 88642694612 Dahlia Henry LPN AJOVY 225 MG/1.5ML SOAJ Inject 1 pen injector subcutaneously once a month 11/19 [facility]illa[facility] 23285935895 Nay Tan PA-C DIVALPROEX SODIUM ER 500 MG [id number] TAKE 1 TABLET BY MOUTH AT BEDTIME 08/05 DIVALPROEX SODIUM 10371117233 Rommel Ryder MD EMGALITY 120 MG/ML SOAJ 240 mg on first month then 120 mg Q month 08/05 [facility] 79355916527 Rommel Ryder MD DEPAKOTE ER 500 MG [id number] 500 mg Q HS 10/05 DIVALPROEX SODIUM 15420753199 Rommel Ryder MD GABAPENTIN 300 MG CAPS 900 mg PO TID 05/06 GABAPENTIN 24227785852 Rommel Ryder MD BELSOMRA 20 MG TABS 1 orally QHS at 11:45pm for 12am bedtime 07/30 SUVOREXANT 01721937348 Rommel Ryder MD MULTIVITAMINS TABS 07/26 MULTIPLE VITAMIN 27495108442 Rommel Ryder MD B COMPLEX ORAL TABLET 08/30 B COMPLEX VITAMINS 32865094751 Rommel Ryder MD PROVENTIL HFA 108 (90 BASE) MCG/ACT INHALATION AEROSOL SOLUTION 08/05 ALBUTEROL SULFATE 93992428224 Rommel Ryder MD BUSPIRONE HCL 10 MG TABS 08/05 BUSPIRONE HCL 80833203632 Rommel Ryder MD VITAMIN D CAPS 4000u 08/30 CHOLECALCIFEROL CAPS 68595997318 Rommel Ryder MD SINGULAIR 10 MG TABS 08/05 MONTELUKAST SODIUM 92456088575 Rommel Ryder MD FLUOXETINE HCL 20 MG CAPS 05/19 FLUOXETINE HCL 53828922744 Rommel Ryder MD MONTELUKAST SODIUM 10 MG TABS TK 1 T PO QHS 11/11 MONTELUKAST SODIUM 53903441500 Rommel Ryder MD FLUOXETINE HCL 40 MG CAPS TK 2 CS PO QAM 07/21 FLUOXETINE HCL 69424592740 Rommel Ryder MD WIXELA INHUB 100-50 MCG/ACT AEPB USE 1 INHALATION BY MOUTH TWICE DAILY 11/04 FLUTICASONE-SALMETE ROL 74215835122 Rommel Ryder MD TIZANIDINE HCL 2 MG TABS TAKE 1 TABLET BY MOUTH EVERY 8 HOURS NEEDED 04/01 TIZANIDINE HCL 44350142384 Rommel Ryder MD MEDROL 4 MG TBPK 1 dose pack to be taken according to instructions on package. 04/03 METHYLPREDNISOLONE 98969835757 Pamela Paz APRN, CNP BELSOMRA 20 MG TABS 1 orally QHS at 11:45pm for 12am bedtime 07/30 SUVOREXANT 10644252589 Vladimir Pa Jr, MD BELSOMRA 15 MG TABS 1 orally QHS at 11:45pm for 12am bedtime (free 10 tab trial) 07/30 SUVOREXANT [id number] Vladimir Pa Jr, MD BELSOMRA 20 MG TABS 1 orally QHS at 11:45pm for 12am bedtime (free 10 tab trial) 07/30 SUVOREXANT [id number] Vladimir Pa Jr, MD BELSOMRA 15 MG TABS 1 orally QHS at 11:45pm for 12am bedtime (free 10 tab trial) 07/30 SUVOREXANT [id number] Vladimir Pa Jr, MD TIZANIDINE HCL 2 MG TABS 07/16 TIZANIDINE HCL 47168113747 Vladimir Pa Jr, MD LORAZEPAM 1 MG TABS TAKE 1 TABLET BY MOUTH TWICE A DAY 05/10 LORAZEPAM 50494012486 Vladimir Pa Jr, MD MELATONIN TABLET 3mg at 9 pm 08/09 MELATONIN TABS 77635196422 Pamela Paz APRN STORAGE BRINE WORKER NORTREL 0.5/0.75/1-35 MG-MCG TABS 07/26 NORETHIN-ETH ESTRAD TRIPHASIC 96111841343 Pamela Paz SECURITY PROFESSIONAL STORAGE BRINE WORKER ATIVAN 1 MG TABS 07/27 LORAZEPAM [id number] Vladimir Pa Jr, MD DEPAKOTE ER 500 MG [id number] 500 mg HS 10/17 DIVALPROEX SODIUM 67368837865 Vladimir Pa Jr, MD DIVALPROEX SODIUM 500 MG TBEC TAKE 1 TABLET BY MOUTH AT BEDTIME. 10/05 DIVALPROEX SODIUM 09290183876 Vladimir Pa Jr, MD LORAZEPAM 1 MG TABS TAKE 1 TABLET BY MOUTH TWICE A DAY 05/10 LORAZEPAM [id number] Vladimir Pa Jr, MD TIZANIDINE HCL 2 MG TABS 07/16 TIZANIDINE HCL 33844979823 Vladimir Pa Jr, MD FLUOXETINE HCL 20 MG CAPS 05/19 FLUOXETINE HCL 73529745116 Vladimir Pa Jr, MD NORTREL 0.5/0.75/1-35 MG-MCG TABS 07/26 NORETHIN-ETH ESTRAD TRIPHASIC 42131723077 Vladimir Pa Jr, MD SPIRONOLACTONE 50 MG TABS 10/17 SPIRONOLACTONE 49160822799 Vladimir Pa Jr, MD SPIRONOLACTONE 50 MG TABS 10/17 SPIRONOLACTONE 42448725182 Rommel Ryder MD DEPAKOTE ER 500 MG [id number] 500 mg HS 10/17 DIVALPROEX SODIUM 90635936315 Rommel Ryder MD MAGNESIUM CAPSULE 08/30 MAGNESIUM OXIDE CAPS 86715942227 Rommel Ryder MD L-LYSINE HCL TABS 08/30 LYSINE HCL TABS 55735660246 Rommel Ryder MD CELEXA 20 MG TABS 1 qd 10/17 CITALOPRAM HYDROBROMIDE 92524854624 Rommel Ryder MD SYMBICORT 160-4.5 MCG/ACT AERO 10/17 BUDESONIDE-FORMOTER OL FUMARATE 98052913510 Rommel Ryder MD PROVENTIL HFA 108 (90 Base) MCG/ACT INHALATION AEROSOL SOLUTION 08/05 ALBUTEROL SULFATE 65649182940 Rommel Ryder MD SYMBICORT 160-4.5 MCG/ACT AERO 10/17 BUDESONIDE-FORMOTER OL FUMARATE 98228751468 Rommel Ryder MD SINGULAIR 10 MG TABS 08/05 MONTELUKAST SODIUM 19578867083 Rommel Ryder MD ZANAFLEX 2 MG ORAL CAPSULE 1 q hs 12/09 TIZANIDINE HCL 97507279137 Rommel Ryder MD ZANAFLEX 4 MG ORAL CAPSULE 1 qhs 12/09 TIZANIDINE HCL 45926157541 Rommel Ryder MD ZANAFLEX 6 MG ORAL CAPSULE 1 @ hs 12/09 TIZANIDINE HCL 01092694027 Rommel Ryder MD KETOROLAC TROMETHAMINE 10 MG TABS 1 po q6h prn migraine not to take longer than 4 days 05/19 KETOROLAC TROMETHAMINE 08137798627 Rommel Ryder MD DEPAKOTE ER 500 MG [id number] 1000 mg PO Q HS 10/14 DIVALPROEX SODIUM 68489906926 Rommel Ryder MD LEVOTHYROXINE SODIUM 125 MCG TABS 07/26 LEVOTHYROXINE SODIUM 24786193577 Rommel Ryder MD GABAPENTIN 300 MG CAPS 300 mg PO TID 05/06 GABAPENTIN 37160782244 Rommel Ryder MD MORPHINE SULFATE 15 MG TABS 15 mg po TID PRN for pain. Do not use more than 2 days per week. 10/14 MORPHINE SULFATE 16252191495 Rommel Ryder MD VENTOLIN HFA AERS 12/09 ALBUTEROL SULFATE AERS 13313748203 Phyllis Wong RN, MS, SECURITY PROFESSIONAL, STORAGE BRINE WORKER SYMBICORT AERO 12/09 BUDESONIDE-FORMOTER OL FUMARATE AERO 27829360773 Phyllis Wong RN, MS, SECURITY PROFESSIONAL, STORAGE BRINE WORKER CELEXA 20 MG TABS 1 qd 10/17 CITALOPRAM HYDROBROMIDE 05798422962 Phyllis Wong RN, MS, SECURITY PROFESSIONAL, STORAGE BRINE WORKER SINGULAIR TABS 12/09 MONTELUKAST SODIUM TABS 99261280215 Phyllis Wong RN, MS, SECURITY PROFESSIONAL, STORAGE BRINE WORKER OMEPRAZOLE 20 MG CPDR 09/20 OMEPRAZOLE [id number] Phyllis Wong RN, MS, SECURITY PROFESSIONAL, STORAGE BRINE WORKER BUSPIRONE HCL 10 MG TABS 08/05 BUSPIRONE HCL 78705293326 Phyllis Wong RN, MS, SECURITY PROFESSIONAL, STORAGE BRINE WORKER ATIVAN 1 MG TABS 07/27 LORAZEPAM [id number] Phyllis Wogn RN, MS, SECURITY PROFESSIONAL, STORAGE BRINE WORKER ZANAFLEX 6 MG ORAL CAPSULE 1 @ hs 12/09 TIZANIDINE HCL 76558579721 Phyllis Wong RN, MS, SECURITY PROFESSIONAL, STORAGE BRINE WORKER ZANAFLEX 4 MG ORAL CAPSULE 1 qhs 12/09 TIZANIDINE HCL 95475311009 Phyllis Wong RN, MS, SECURITY PROFESSIONAL, STORAGE BRINE WORKER ZANAFLEX 2 MG ORAL CAPSULE 1 q hs 12/09 TIZANIDINE HCL 73602612423 Phyllis Wong RN, MS, SECURITY PROFESSIONAL, STORAGE BRINE WORKER POTASSIMIN TABLET 08/30 POTASSIUM TABS 89488317567 Phyllis Wong RN, MS, SECURITY PROFESSIONAL, STORAGE BRINE WORKER CALCIUM TABLET 08/30 CALCIUM CARBONATE-VITAMIN D TABS 08234462368 Phyllis Wong RN, MS, SECURITY PROFESSIONAL, STORAGE BRINE WORKER SLOW RELEASE IRON TABLET EXTENDED RELEASE 08/30 FERROUS SULFATE DRIED CR-TABS 85247939011 Phyllis Wong RN, MS, SECURITY PROFESSIONAL, STORAGE BRINE WORKER BINA-TAB 500 MG TBEC for acne 07/26 ERYTHROMYCIN BASE 49420963417 Phyllis Wong RN, MS, SECURITY PROFESSIONAL, STORAGE BRINE WORKER PROZAC 40 MG ORAL CAPSULE 80mg daily 04/09 FLUOXETINE HCL 37527371459 Phyllis Wong RN, MS, SECURITY PROFESSIONAL, STORAGE BRINE WORKER IBUPROFEN 800 MG TABS 2x/day as needed 07/26 IBUPROFEN 65774542919 Phyllis Wong RN, MS, SECURITY PROFESSIONAL, STORAGE BRINE WORKER KETOROLAC TROMETHAMINE 10 MG TABS 1 po q6h prn migraine not to take longer than 4 days 05/19 KETOROLAC TROMETHAMINE 50710476346 Aminah Alcala RN, STORAGE BRINE WORKER CYCLOBENZAPRINE HCL 10 MG TABS One pill at bedtime as needed for muscle spasm 10/04 CYCLOBENZAPRINE HCL 82388675368 Yaima Ledesma DNP,SECURITY PROFESSIONAL,STORAGE BRINE WORKER PROZAC 40 MG ORAL CAPSULE 80mg daily 04/09 FLUOXETINE HCL 85751329265 Yaima Ledesma DNP,SECURITY PROFESSIONAL,STORAGE BRINE WORKER LORAZEPAM 1 MG TABS 3x/day 07/26 LORAZEPAM [id number] Vladimir Pa Jr, MD MORPHINE SULFATE 15 MG TABS 15 mg po TID PRN for pain. Do not use more than 2 days per week. 10/14 MORPHINE SULFATE 49978769005 Rommel Ryder MD DEPAKOTE ER 500 MG [id number] 1000 mg PO Q HS 10/14 DIVALPROEX SODIUM [id number] Rommel Ryder MD CYCLOBENZAPRINE HCL 10 MG TABS One pill at bedtime as needed for muscle spasm 10/04 CYCLOBENZAPRINE HCL 49214742199 Rommel Ryder MD CYCLOBENZAPRINE HCL 10 MG TABS Take one pill every evening 07/26 CYCLOBENZAPRINE HCL 00829445253 Rommel Ryder MD L-LYSINE HCL TABS 08/30 LYSINE HCL TABS [id number] Yaima Ledesma DNP,SECURITY PROFESSIONAL,STORAGE BRINE WORKER MAGNESIUM CAPSULE 08/30 MAGNESIUM OXIDE CAPS [id number] Yaima Ledesma DNP,SECURITY PROFESSIONAL,STORAGE BRINE WORKER POTASSIMIN TABLET 08/30 POTASSIUM TABS 28589853651 Yaima Ledesma DNP,SECURITY PROFESSIONAL,STORAGE BRINE WORKER B COMPLEX ORAL TABLET 08/30 B COMPLEX VITAMINS 35375031095 Yaima Ledesma DNP,SECURITY PROFESSIONAL,STORAGE BRINE WORKER VITAMIN D CAPS 4000u 08/30 CHOLECALCIFEROL CAPS [id number] Yaima Ledesma DNP,SECURITY PROFESSIONAL,STORAGE BRINE WORKER CALCIUM TABLET 08/30 CALCIUM CARBONATE-VITAMIN D TABS 83655560170 Yaima Ledesma DNP,SECURITY PROFESSIONAL,STORAGE BRINE WORKER DEPAKOTE ER 500 MG [id number] One pill daily 08/30 DIVALPROEX SODIUM [id number] Yaima Ledesma DNP,SECURITY PROFESSIONAL,STORAGE BRINE WORKER FERROUS SULFATE 324 MG TBEC 07/26 FERROUS SULFATE 48584168066 Yaima Ledesma DNP,SECURITY PROFESSIONAL,STORAGE BRINE WORKER SLOW RELEASE IRON TABLET EXTENDED RELEASE 08/30 FERROUS SULFATE DRIED CR-TABS [id number] Yaima Ledesma DNP,SECURITY PROFESSIONAL,STORAGE BRINE WORKER MULTIVITAMINS TABS 07/26 MULTIPLE VITAMIN 65295104288 Yaima Ledesma DNP,SECURITY PROFESSIONAL,STORAGE BRINE WORKER FERROUS SULFATE 324 MG TBEC 07/26 FERROUS SULFATE [id number] Yaima Ledesma DNP,SECURITY PROFESSIONAL,STORAGE BRINE WORKER BINA-TAB 500 MG TBEC for acne 07/26 ERYTHROMYCIN BASE [id number] [facility] DNP,SECURITY PROFESSIONAL,STORAGE BRINE WORKER LEVOTHROID 75 MCG TABS daily 07/26 LEVOTHYROXINE SODIUM [id number] Yaima Lozanoigel DNP,SECURITY PROFESSIONAL,STORAGE BRINE WORKER LORAZEPAM 1 MG TABS 3x/day 07/26 LORAZEPAM [id number] Yaima Lozanoigel DNP,SECURITY PROFESSIONAL,STORAGE BRINE WORKER PROZAC 40 MG ORAL CAPSULE daily 07/26 FLUOXETINE HCL [id number] [facility] DNP,SECURITY PROFESSIONAL,STORAGE BRINE WORKER IBUPROFEN 800 MG TABS 2x/day as needed 07/26 IBUPROFEN [id number] [facility] DNP,SECURITY PROFESSIONAL,STORAGE BRINE WORKER MEDROL 4 MG TBPK Take as directed 03/17 METHYLPREDNISOLONE 84019334814 [facility]a [facility] EDYTA,SECURITY PROFESSIONAL,STORAGE BRINE WORKER ZOFRAN ODT 4 MG ORAL TABLET DISINTEGRATING 1 PO Q 6-8 hr prn nausea and vomiting with migraine 03/27 ONDANSETRON [id number] [facility] DNP,SECURITY PROFESSIONAL,STORAGE BRINE WORKER CYCLOBENZAPRINE HCL 10 MG TABS Take one pill every evening 07/26 CYCLOBENZAPRINE HCL [id number] [facility] EDYTA,SECURITY PROFESSIONAL,STORAGE BRINE WORKER GABAPENTIN CAPS 900 mg PO BID and 600 mg PO in the afternoon. 05/06 GABAPENTIN CAPS 20853289256 Rommel Ryder MD GABAPENTIN CAPS 600 MG PO TID 03/25 GABAPENTIN CAPS 39683805446 Rommel Ryder MD MEDROL 4 MG TBPK Take as directed 03/17 METHYLPREDNISOLONE 84040925678 Rommel Ryder MD GABAPENTIN CAPS 300 MG PO TID 03/27 GABAPENTIN CAPS 68833105959 Rommel Ryder MD ZOFRAN ODT 4 MG ORAL TABLET DISINTEGRATING 1 PO Q 6-8 hr prn nausea and vomiting with migraine 03/27 ONDANSETRON 53826715317 Rommel Ryder MD GABAPENTIN CAPS 2 qhs 03/22 GABAPENTIN CAPS 45193966185 Dahlia Henry LPN VICODIN 5-500 MG TABS 1 to 2 tabs PO q 6 hours PRN for headache 12/08 HYDROCODONE-ACETAMI NOPHEN 32360639832 Dahlia Henry LPN ZONEGRAN 100 MG CAPS 200 mg AM - 300 mg HS 01/20 ZONISAMIDE 28906341700 Dahlia Henry LPN GABAPENTIN CAPS 300 MG PO Q HS x 1 WEEK, 300 MG PO BID x 1 WEEK, 300 MG PO TID 09/20 GABAPENTIN CAPS 31111559428 Rommel Ryder MD ZONEGRAN 100 MG CAPS 200 mg AM - 300 mg HS 06/25 ZONISAMIDE 03394741229 Rommel DUMONT ODT 4 MG ORAL TABLET DISINTEGRATING 1 po qw6-8hr prn nausea and vomiting with migraine 12/08 ONDANSETRON 10671612731 Aminah Alcala RN, STORAGE BRINE WORKER MORPHINE SULFATE 15 MG TABS 15 mg po TID PRN for pain 12/08 MORPHINE SULFATE 66728163062 Aminah Alcala RN, STORAGE BRINE WORKER ZONEGRAN 100 MG CAPS 300mg am- 200mg pm 12/08 ZONISAMIDE 52124752246 Aminah Alcala RN, STORAGE BRINE WORKER ZONEGRAN 100 MG CAPS 200 mg PO BID 06/25 ZONISAMIDE 01440850524 Rommel Ryder MD VICODIN 5-500 MG TABS 1 to 2 tabs PO q 6 hours PRN for headache 12/08 HYDROCODONE-ACETAMI NOPHEN [id number] Rommel Ryder MD ZONEGRAN 100 MG CAPS 100 MG PO QHS x 1 week, 100 MG PO BID x 1 week, 100 mg PO Q AM and 200 mg PO Q HS x 1 week, 200 mg PO BID 11/23 ZONISAMIDE 55822894617 Rommel Ryder MD TOPAMAX 25 MG TABS 25 MG PO BID X 1 WEEK then 50 MG PO BID 10/28 TOPIRAMATE 00304553926 Rommel Ryder MD TOPAMAX 25 MG TABS 25 MG PO BID X 1 WEEK then 50 MG PO BID 10/28 TOPIRAMATE 92947585573 Rommel Ryder MD VIOXX TABS 25 MG 1 QD PRN 07/05 ROFECOXIB [id number] Rommel Ryder MD SOMA 350 MG TABS 1 Q HS PRN 0 07/05 CARISOPRODOL [id number] Rommel Ryder MD VIOXX TABS 25 MG 1 QD PRN 07/05 ROFECOXIB [id number] Valerio Zee MD SOMA 350 MG TABS 1 Q HS PRN 07/05 CARISOPRODOL [id number] Valerio Zee MD Medications Administered No information available. Allergies, Adverse Reactions, Alerts Allergy Name Reaction Description Start Date Severity Statu s Provider TRAZODONE HCL Moderate Active Wilma Ryder MD SEROQUEL Moderate Active Rommel Ryder MD EFFEXOR Moderate Active Rommel Ryder MD DILAUDID Moderate Active Rommel Ryder MD SULFA Moderate Active Rommel Ryder MD TETRACYCLINE Moderate Active Rommel Ryder MD VICODIN Moderate Active Rommel Ryder MD TRAMADOL Moderate Active Rommel Ryder MD PERCOCET Moderate Active Rommel Ryder MD PREDNISONE Critical No Longer Active Rasmita Paz SECURITY PROFESSIONAL STORAGE BRINE WORKER VICODIN Unknown No Longer Active Rommel Ryder MD VICODIN Severe No Longer Active Phyllis Wong RN, MS, SECURITY PROFESSIONAL, STORAGE BRINE WORKER PREDNISONE Critical No Longer Active Rommel Ryder MD VICODIN Critical No Longer Active Aminah Alcala RN, STORAGE BRINE WORKER TETRACYCLINE Critical No Longer Active Rommel Ryder MD TRAMADOL Critical No Longer Active Rommel Ryder MD PERCOCET Critical No Longer Active Rommel Ryder MD Results Date Name Value Unit Range Flag Description Lab Report: CK,TOTAL CPK 92 U/L 26-140 Creatine sanjiv se [Enzymatic activity/volume] in Serum or Plasma Internal Correspondence: Bot ox Order EMG Yes electromyogra phy Office Visit: fax SMOK STATUS Non-Smoker/No n User Tobacco smoking status Internal Other: Authorizatio n - OBS AUTHORIZEDBY DONE person g iving authorization Rx Refill: eRx Request for D IVALPROEX EXTENDED RELEASE 500MG T [facility]_RR [id number] `DIVALPROEX EXTENDED RELEASE 500MG T`500`ME`60 Tablet`30`TYLER E 2 TABLETS BY MOUTH EVERY NIGHT AT BEDTIME``1`0` [id number]`2012 1021`[facility] [phone]*``[id number] [id number]`` B e-scripts messen manuel refill request Internal Other: Authorizatio n - OBS PTSTAUTHDT Done PT Joe g Authorization Date Office Visit: 10/17/16 14:55 REFERRING PHYSICIAN NAME: ALEXANDER CEE. MILENA Done Fall ris k assessment Replaced Document: (P) AST, ALT, CBC (H/H, RBC, INDICES, WBC, PLT), TSH, VITAMI ... AMMONIA P * umol/L Ammonia [Mass/volume] in Plasma B-12 * pg/mL Cobalamin (Vi tamin B12) [Mass/volume] in Serum or Plasma TSH * u[iU]/mL Thyrotropin [Units/volume] in Serum or Plasma MPV * fL Platelet mean volume [Entitic volume] in Blood by Srinivas PLATELETS * 10*3/mm3 Platelets [#/volume] in Blood by Automated count RDW * % Erythrocyte distribution width [Ratio] by Automated count MCHC * % MCHC [Mass/vo lume] by Automated count MCH * pg MCH [Entitic mass] by Automated count MCV * fL MCV [Entitic volume] by Automated count HCT * % Hematocrit [V olume Fraction] of Blood by Automated count HGB * g/dL Hemoglobin [Mass/volume] in Blood RBC * 10*6/mm3 Erythrocytes [#/volume] in Blood by Automated count WBC * 10*3/mm3 Leukocytes [#/volume] in Blood by Automated count SGPT (ALT) 20 U/L 6-29 N Alanine aminotransferase [Enzymatic activity/volume] in Serum or Plasma SGOT (AST) 24 U/L 10-30 N Aspartate aminotransferase [Enzymatic activity/volume] in Serum or Plasma Lab Report: FERRITIN FERRITIN 62 ng/mL 10-232 N Ferritin [Mass/volume] in Serum or Plasma Internal Other: Verbal Autho rization/Emergency Contact - OBS VERBAL_EMER DONE Verbal au thorization and emergency contact Lab Report: 08/03/19 - 0 ABSOLUTE BAS normal 10*3/uL Basophil s [#/volume] in Blood Internal Other: Authorizatio n - OBS [id number] Yes GE use only - for [employer] import when terms are not otherwise specified HIECONSENT Yes Consent To Release information to the [employer] ([employer]) Office Visit: MIRELA Follow Up 11/19/20 MAIL MEDS REVIEW Done Documenta tion of current medications (procedure) Plan of Care Type Date Detail Pending order Occipital Nerve Block and Trigger Point Injections Pending order Occipital Nerve Block and Trigger Point Injections Pending Order exclud ed from report: Pending order Follow up Pending Order exclud ed from report: Pending order Follow up Pending order Occipital Nerve Block and Trigger Point Injections Pending order Occipital Nerve Block and Trigger Point Injections Pending order We will contact you with test results Pending order Follow up MIRELA Pending order Occipital Nerve Block and Trigger Point Injections Pending order Ammonia Pending order T4 Free Direct Pending order TSH Pending order Occipital Nerve Block and Trigger Point Injections Pending order Occipital Nerve Block and Trigger Point Injections Pending order Consult Pending order Dysport Injectio n Pending order Occipital Nerve Block and Trigger Point Injections Pending order Occipital Nerve Block and Trigger Point Injections Pending order Migraine Infusio n Order Set #1: Depacon/Solu-Medrol/Toradol Pending order Occipital Nerve Block and Trigger Point Injections Pending order Follow up Pending order Migraine Infusio n Order Set #1: Depacon/Solu-Medrol/Toradol Pending order Follow up Pending order Sleep Consult Pending order Other Referral Pending order Patient Instruct ions Pending order Other Referral Pending order Follow up Pending order Patient Instruct ions Pending order Follow up Pending order Follow up Pending order Other Referral Pending order Patient Instruct ions Pending order Follow up Pending order Patient Instruct ions Pending order Follow up Pending order Follow up Pending order Instructions for Staff Pending order Follow up Pending order Follow up Pending order Follow up Pending order Migraine Order S et #1: Depacon/Solu-Medrol/Toradol Pending order Migraine Order S et #1: Depacon/Solu-Medrol/Toradol Pending Order exclud ed from report: Pending order Other Referral Pending order Patient Instruct ions Pending order Follow up Pending order Patient Instruct ions Pending order Follow up Pending order Other Test Pending order Patient Instruct ions Pending order Other Referral Pending order Ferritin Serum Pending order Other Referral Pending order Patient Instruct ions Pending order Follow up Pending order Other Referral Pending order Patient Instruct ions Pending order ALT (SGPT) Pending order AST (SGOT) Pending order CBC no Diff/ Marcin telet Pending order TSH Pending order Vitamin B12 Pending order Ammonia Pending order Other Referral Pending Order exclud ed from report: Pending order Follow up Pending order Follow up Pending order Follow up Pending order Follow up Pending order Migraine Order S et #1: Depacon/Solu-Medrol/Toradol Pending order Follow up Procedures Code Procedure Name Date Entry Date ORDERS Occipital Nerve Block and Trigger Point I njections ORDERS Follow up ORDERS Occipital Nerve Bloc k and Trigger Point Injections CPT-7384770 Occipital nerve bloc k (Greater ONB) bilateral CPT-65324 Trigger point inj (3+ musc) CPT-J1100 Dexamethasone -- 15 mg 02/16 ORDERS Occipital Nerve Bloc k and Trigger Point Injections ORDERS TSH ORDERS T4 Free Direct ORDERS Ammonia ORDERS Occipital Nerve Bloc k and Trigger Point Injections CPT-61352 Trigger point inj (3+ musc) CPT-1551235 Occipital nerve bloc k (Greater ONB) bilateral CPT-J1100 Dexamethasone -- 15 mg 11/24 ORDERS Follow up MIRELA ORDERS We will contact you with test results 202 03/21/08 [facility]-[id number] Documentation of current medicatio ns ORDERS Occipital Nerve Bloc k and Trigger Point Injections CPT-59440 Trigger point inj (3+ musc) CPT-9335421 Occipital nerve bloc k (Greater ONB) bilateral CPT-J1100 Dexamethasone -- 10 mg 08/06 [id number] Consult CPT-78931 Trigger point inj (3+ musc) CPT-6512449 Occipital nerve bloc k (Greater ONB) bilateral CPT-J1100 Dexamethasone - 4 mg ORDERS Occipital Nerve Bloc k and Trigger Point Injections CPT-55775 Trigger point inj (3+ musc) CPT-7634120 Occipital nerve bloc k (Greater ONB) bilateral CPT-J1100 Dexamethasone -- 10 mg 11/11 ORDERS Dysport Injection ORDERS Occipital Nerve Bloc k and Trigger Point Injections ORDERS Occipital Nerve Bloc k and Trigger Point Injections CPT-40050 Trigger point inj (3+ musc) CPT-3116465 Occipital nerve bloc k (Greater ONB) bilateral ORDERS Migraine Infusion Or gregoria Set #1: Depacon/Solu-Medrol/Toradol CPT-J1100 Dexamethasone - 8mg CPT-13788 Trigger point inj (3+ musc) CPT-3012285 Occipital nerve bloc k (Greater ONB) bilateral ORDERS Occipital Nerve Bloc k and Trigger Point Injections ORDERS Follow up ORDERS Migraine Infusion Or gregoria Set #1: Depacon/Solu-Medrol/Toradol CPT-0228023 Occipital nerve block (Greater ONB) x2 20 02/05/25 CPT-93890 Trigger point inj (3+ musc) ORDERS Follow up CPT-74886 Trigger point inj (3+ musc) CPT-4785758 Occipital nerve block x2 202 0 CPT-J1100 Dexamethasone - 8mg ORDERS Follow up ORDERS Sleep Consult [id number] Other Referral CPT-T6011T Dysport 500u - 1 vial 04/08 CPT-34568 Chem - Face/Neck - Migraine or Headache 2 ORDERS Follow up ORDERS Patient Instructions CPT-5301467 Occipital nerve block x2 201 11/19/22 CPT-96686 Trigger point inj (3+ musc) CPT-J1100 Dexamethasone SCT-[id number] Other Referral ORDERS Follow up CPT-E9819E Dysport 500u - 1 vial 0 10/30 CPT-54829 Chem - Face/Neck - Migraine or Headache 2 ORDERS Follow up ORDERS Patient Instructions CPT-21709 Trigger point inj (3+ musc) CPT-7150882 Occipital nerve block x2 201 11/17/00 CPT-J1100 Dexamethasone -- 15 mg 09/10 [facility]-[id number] Documentation of current medicatio ns ORDERS Patient Instructions ORDERS Patient Instructions [id number]-[id number] Other Referral ORDERS Follow up CPT-Z8500G Dysport 500u - 1 vial 07/16 CPT-12735 Chem - Face/Neck - Migraine or Headache 2 ORDERS Follow up ORDERS Follow up ORDERS Instructions for Staff 06/06 CPT-1314003 Occipital nerve block x2 201 11/13/26 CPT-30481 Trigger point inj (1-2 musc) CPT-J1100 Dexamethasone -- 15 mg 06/06 CPT-U0644Q Dysport 500u - 1 vial 2019/0 04/04 CPT-63310 Chem - Face/Neck - Migraine or Headache 2 CPT-R3075E Dysport 500u - 1 vial 03/24 CPT-72419 Chem - Face/Neck - Migraine or Headache 2 ORDERS Follow up ORDERS Follow up ORDERS Migraine Order Set # 1: Depacon/Solu-Medrol/Toradol [id number] Other Referral ORDERS Patient Instructions ORDERS Follow up SCT-[id number] Documentation of current medicatio ns ORDERS Patient Instructions ORDERS Follow up ORDERS Other Test CPT-X7801Q Dysport 500u - 1 vial 201810/16 CPT-97582 Chem - Face/Neck - Migraine or Headache 2 SCT-[id number] Documentation of current medicatio ns ORDERS Patient Instructions SCT-[id number] Other Referral ORDERS Patient Instructions ORDERS Ferritin Serum SCT-[id number] Documentation of current medicatio ns SCT-[id number] Other Referral ORDERS Follow up [id number]-[id number] Other Referral CPT-52237 PSG, 4+ parameters w / tech - 6yrs or older (84877) ORDERS Ammonia ORDERS Patient Instructions SCT-[id number] Other Referral SCT-[id number] Documentation of current medicatio ns ORDERS ALT (SGPT) ORDERS AST (SGOT) ORDERS CBC no Diff/ Platelet 07/27 ORDERS TSH ORDERS Vitamin B12 ORDERS Follow up CPT-R0135G Dysport 500u - 1 vial 07/25 CPT-94995 Chem - Face/Neck - Migraine or Headache 2 ORDERS Follow up CPT-E7431G Dysport 500u - 1 vial 05/02 CPT-10474 Chem - Face/Neck - Migraine or Headache 2 CPT-Z8443C Dysport 500u - 1 vial 04/09 CPT-33465 Chem - Face/Neck - Migraine or Headache 2 ORDERS Follow up ORDERS Follow up CPT-G7853A Dysport 500u - 1 vial 11/10 CPT-44187 Chem - Face/Neck - Migraine or Headache 2 ORDERS Migraine Order Set # 1: Depacon/Solu-Medrol/Toradol ORDERS Follow up CPT-49921 Brief emotional/behavioral assessment 201 09/17/06 CPT-E2618J Dysport 300u - 1 vial 03/15 CPT-07641 Chem - Face/Neck - Migraine or Headache 2 SCT-[id number] Documentation of current medicatio ns SCT-[id number] Documentation of current medicatio ns CPT-I9754U * Depacon 1000mg (enter units) CPT-J2930 * Solu-Medrol, 1000 mg / 1g (x8) CPT-J2405 * Zofran 1mg (enter units) 2 CPT-Z4102E * Toradol 60mg (enter units) CPT-H4489p * Normal Saline 200 cc 01/15 CPT-65938 IV infusion - Primar y Indication (16 min - 1 hr 30 min ) CPT-19725 Each add IVP of new drug/ Repeats if 30m apart/Each Add Tere Ind drug 15m or less CPT-J2930 * Solu-Medrol, 1000 mg / 1g (x8) CPT-Z8211U * Depacon 1000mg (enter units) CPT-J2405 * Zofran 1mg (enter units) 2 CPT-J1885 * Toradol 15mg (enter units) CPT-X5744m * Normal Saline 200 cc 10/04 CPT-96112 IV infusion - Primar y Indication (16 min - 1 hr 30 min ) CPT-59865 Each add IVP of new drug/ Repeats if 30m apart/Each Add Tere Ind drug 15m or less CPT-11998 MRI Cervical W/O CPT-75966 MRI Cervical W/O CPT-J2930 * Solu-Medrol, 1000 mg / 1g (x8) CPT-P4185I * Depacon 1000mg (enter units) CPT-J2405 * Zofran 1mg (enter units) 2 CPT-J1885 * Toradol 15mg (enter units) CPT-O7342A * Normal Saline 100 cc 02/07 CPT-36183 IV infusion - Primar y Indication (16 min - 1 hr 30 min ) CPT-60962 Each add IVP of new drug/ Repeats if 30m apart/Each Add Tere Ind drug 15m or less CPT-J2930 * Solu-Medrol, 1000 mg / 1g (x8) CPT-J2405 * Zofran 1mg (enter units) 2 CPT-J1885 * Toradol 15mg (enter units) CPT-G5318S * Normal Saline 100 cc 01/10 CPT-14181 IV infusion - Primar y Indication (16 min - 1 hr 30 min ) CPT-32951 Each add IVP of new drug/ Repeats if 30m apart/Each Add Tere Ind drug 15m or less CPT-10513 Multiple Sleep Latency Testing (18931) 20 01/19/26 CPT-05434 Polysomnography, 4+ parameters w/ tech (07643) CPT-J2930 * Solu-Medrol, 1000 mg / 1g (x8) CPT-F3036S * Normal Saline 100 cc 11/22 CPT-J2405 * Zofran 1mg (enter units) 2 CPT-F2064B * Depacon 500 mg CPT-74361 IV infusion - Primar y Indication (16 min - 1 hr 30 min ) CPT-91815 Each add IVP of new drug/ Repeats if 30m apart/Each Add Tere Ind drug 15m or less CPT-G8553 eRX Charge CPT-J2930 * Solu-Medrol, 1000 mg / 1g (x8) CPT-W6857G * Depacon 1000mg (enter units) CPT-J1885 * Toradol 15mg (enter units) CPT-O8385N * Normal Saline 100 cc 08/16 CPT-01088 IV infusion - Primar y Indication (16 min - 1 hr 30 min ) CPT-72013 Each add IVP of new drug/ Repeats if 30m apart/Each Add Tere Ind drug 15m or less CPT-H0443Y * Depacon 500 mg CPT-J2930 * Solu-Medrol, 1000 mg / 1g (x8) CPT-J1885 * Toradol 15mg (enter units) CPT-J2405 * Zofran 1mg (enter units) 2 CPT-21997 IV infusion - Primar y Indication (16 min - 1 hr 30 min ) CPT-64923 Each add IVP of new drug/ Repeats if 30m apart/Each Add Tere Ind drug 15m or less CPT-20831 Each add IVP of new drug/ Repeats if 30m apart/Each Add Tere Ind drug 15m or less CPT-Y0741A * Depacon 1000mg (enter units) CPT-J2930 * Solu-Medrol, 1000 mg / 1g (x8) CPT-A2206r * Normal Saline 200 cc 07/14 CPT-J2405 * Zofran 1mg (enter units) 2 CPT-J1885 * Toradol 15mg (enter units) CPT-58987 IV infusion - Primar y Indication (16 min - 1 hr 30 min ) CPT-42249 Infusion -- Tere Venita cation for 15 min or less/Single Push CPT-J2930 * Solu-Medrol, 1000 mg / 1g (x8) CPT-S2758I * Depacon 1000mg (enter units) CPT-J1885 * Toradol 15mg (enter units) CPT-B2690X * Normal Saline 100 cc 07/05 CPT-61871 IV infusion - Primar y Indication (16 min - 1 hr 30 min ) CPT-66593 Each add IVP of new drug/ Repeats if 30m apart/Each Add Tere Ind drug 15m or less CPT-J2930 * Solu-Medrol, 1000 mg / 1g (x8) CPT-B0875H * Depacon 1000mg (enter units) CPT-J2405 * Zofran 1mg (enter units) 2 CPT-J1885 * Toradol 15mg (enter units) CPT-K4506M * Normal Saline 100 cc (enter units) 2010 CPT-86666 Infusion -- Tere Venita cation for 15 min or less/Single Push CPT-88390 Each add IVP of new drug/ Repeats if 30m apart/Each Add Tere Ind drug 15m or less CPT-J2930 * Solu-Medrol, 1000 mg / 1g (x8) CPT-O7059D * Depacon 1000mg (enter units) CPT-J1885 * Toradol 15mg (enter units) CPT-E2713W * Normal Saline 100 cc 04/26 CPT-38653 IV infusion - Primar y Indication (16 min - 1 hr 30 min ) CPT-74798 Infusion -- Tere Venita cation for 15 min or less ONLY/Single Push ONLY CPT-93704 IV Infusion - Each A ddtl Tere Indication Med (16 min or more) - (enter units) CPT-J2930 * Solu-Medrol, 1000 mg / 1g (x8) CPT-F1370X * Depacon 1000mg (enter units) CPT-J2405 * Zofran 1mg (enter units) 2 CPT-J1885 * Toradol 15mg (enter units) CPT-E4477S * Normal Saline 100 cc 03/24 CPT-49752 Infusion -- Tere Venita cation for 15 min or less ONLY/Single Push ONLY CPT-83250 IV infusion - Primar y Indication (16 min - 1 hr 30 min ) CPT-23637 IV Infusion - Each A ddtl Tere Indication Med (16 min or more) - (enter units) CPT-J1100 Dexamethasone -- 10 mg 03/11 CPT-1880824 Occipital nerve block x2 201 CPT-J1100 Dexamethasone - 4 mg CPT-0394148 Occipital nerve block x2 201 CPT-J1100 Dexamethasone - 4 mg CPT-3071666 Occipital nerve block x2 201 CPT-J2930 * Solu-Medrol, 1000 mg / 1g (x8) CPT-C8245Y * Depacon 1000mg (enter units) CPT-J2405 * Zofran 1mg (enter units) 2 CPT-J1885 * Toradol 15mg (enter units) CPT-W3194N * Normal Saline 100 cc 12/04 CPT-38836 IV infusion - Primar y Indication (16 min - 1 hr 30 min ) CPT-03801 Each add IVP of new drug/ Repeats if 30m apart/Each Add Tere Ind drug 15m or less CPT-J2930 * Solu-Medrol, 1000 mg / 1g (x8) CPT-Q5150X * Depacon 1000mg (enter units) CPT-43085 IV infusion - Primar y Indication (16 min - 1 hr 30 min ) CPT-81647 IV Infusion - Each A ddtl Tere Indication Med (16 min or more) - (enter units) CPT-Q8993G * Normal Saline 200 cc 11/10 CPT-J2405 * Zofran 1mg (enter units) 2 CPT-J1885 * Toradol 15mg (enter units) CPT-56814 MRI Brain (With & Without Contrast) 11/05 A9579 ProHance Pedrito-based MR Contrast, 20 ml via l CPT-J2930 * Solu-Medrol, 1000 mg / 1g (x8) CPT-W0482U * Depacon 1000mg (enter units) CPT-J1885 * Toradol 15mg (enter units) CPT-U7837W * Normal Saline 100 cc 10/28 CPT-26424 Each add IVP of new drug/ Repeats if 30m apart/Each Add Tere Ind drug 15m or less CPT-72789 IV infusion - Primar y Indication (16 min - 1 hr 30 min ) Vital Signs Date Name Value Unit Description Height 61 [in_us] height E&M BMI (Body Mass Index) 37.17 kg/m2 Bod y Mass Index (Ratio) Weight Measured 89.09 kg weight in kilograms E&M Weight Measured 196 [lb_av] weight E& M Weight Measured 196 [lb_av] weight E& M BP Diastolic 65 mm[Hg] blood pressu re, diastolic BP Systolic 115 mm[Hg] blood pressur e, systolic Respiratory Rate 16 /min respirat ory rate E&M BSA (Body Surface Area) 1.92 b rayna surface area Immunizations No information available. Advance Directives No information available.
--- OUTSIDE RECORDS SUMMARY | 2024-10-19 12:32 | XMS_ITS | Patient Health Record ---
Author Organization [facility] 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 Name Role Phone Different, PCP Primary Care Provider Jared Wtats Unavailable [phone] Allergies Allergen (clinical drug ingredient) Drug/Non Drug Allergy documented on EMR Reaction Allergy Type Onset Date Status trazodone memory problem Drug Allergy Ac tive hydrocodone itching Drug Allergy Activ e Percocet stomach upset Drug Allergy Act fermin Reason For Referral No Information Medications Medication SIG (Take, Route, Frequency, Duration) Notes Start Date End Date Status FLUoxetine 40 mg capsule 1 cap(s) orally once a day; Duration: 30 day(s) Active Wixela Inhub 100 mcg-50 mcg powder 1 INH inhaled 2 times a day; Duration: 30 day(s) Active tiZANidine 2 mg tablet 2 tab(s) orally e very 8 hours; Duration: 30 day(s) Active levothyroxine 125 mcg (0.125 mg) tablet 1 tab(s) orally once a day Active divalproex sodium 500 mg delayed release tablet 1 tab(s) orally 3 times a day; Duration: 30 day(s) Active primidone 50 mg tablet 1 tab(s) orally 1 times a day Active busPIRone 30 mg tablet 1 tab(s) orally 2 times a day; Duration: 30 day(s) Not-Taking montelukast 10 mg tablet 1 tab(s) orally once a day; Duration: 30 day(s) Active gabapentin 300 mg capsule 1 cap(s) orall y 3 times a day; Duration: 30 day(s) Active cloNIDine 0.1 mg tablet 1 tab(s) orally 2 times a day; Duration: 30 day(s) Active Social History Tobacco Use: Social History Observation Description Date Details (start date - stop date) Current Smoker NA - NA Social History Social History Social Info Question Answer Notes Smoking Are you a: current smoker How often do you smoke cigarettes? every day Additional Details Category Social Info Options Details Social History Caffeine yes 2 coffe a wee k Children 1 daughter Marital Status single yes Problems Problem Type SNOMED Code ICD Code Onset Dates Problem Status W/U Status Risk Notes Problem Posttraumatic stress disorder (64868649) Post-traumatic stress disorder, chronic (F43.12) Active confirmed Problem Headache (41178624) Headache, unspecified (R51.9) Active confirmed Plan Of Treatment No Information Insurance Providers Payer Name Payer Address Payer Phone Subscriber Number Group Number Insured Name Patient Relationship to Insured Coverage Start Date Coverage End Date [employer] [address] [address] [place] [address] [phone] [id number] Korina Soto Self - patient is the insured Medical (General) History Medical History History ICD Code anxiety PTSD sleep apnea Hypothyroidism depression insomnia allergies parkinson's disease Surgical History Surgery Date(Month/Year) colonoscopy 11/2022
--- OUTSIDE RECORDS SUMMARY | 2024-10-19 12:33 | XMS_ITS | Clinical Summary ---
Author Organization [employer] [facility] Address [address] [place] [id number] Care Team Providers Care Stile Ripsaw Operator Name Role Phone Montana Lomeli MD Unavailable [phone] Leyla Sands DO Primary Care Provider [phone] Allergies Active Allergy Reactions Criticality Noted Date [...] 10/20/2011 Positive celiac result after EGD Medications lysine (L-LYSINE) 500 mg Tab Take 500 [...] nebulizer accessories kitIndications:Mild persistent asthma without complication (HC) For home use. Length of need: 99 months 1 Kit 01/10/20 18 Active VIOS FOR HOME USE. LENGTH OF NEED: 99 MONTHS 0 01/10/20 18 Active fexofenadine (ESTUARDO) 180 mg tablet Take 1 tablet by mouth once daily. 0 11/22/19 19 Active albuterol-ipratropi um (DUONEB) (2.5-0.5 mg) in 3 mL NEBULIZATION solutionIndications :Mild persistent asthma without complication (HC) Inhale 3 mL via a nebulizer 4 [...] mcg/actuation inhalerIndications: Mild persistent asthma without complication (HC) TAKE 1-2 PUFFS BY MOUTH EVERY 4 [...] diskus inhalerIndications: Moderate persistent asthma without complication (HC) Inhale 1 Puff by mouth two times [...] AT BEDTIME 30 Tablet 05/01/19 24 Active tiZANidine (ZANAFLEX) 2 mg tabletIndications:L umbar facet arthropathy TAKE 1 TABLET(2 MG) BY MOUTH EVERY 8 HOURS NEEDED FOR MUSCLE SPASM 120 Tablet 05/15/19 24 Active gabapentin (NEURONTIN) 300 mg capsuleIndications: Other migraine without status migrainosus, not intractable TAKE 3 CAPSULES(900MG) BY MOUTH THREE TIMES DAILY 810 Capsule 06/16/19 24 Active benzoyl peroxide 10% topical (CLEARASIL) 10 % gelIndications:Prur igo nodularis Apply topically to affected area(s) every morning. Daily routine for prurigo nodularis. 90 g 3 07/17/19 24 Active clindamycin phosphate 1% topical 1 % external solutionIndications :Prurigo nodularis Apply topically to affected area(s) two times daily. To scalp. Daily routine for prurigo nodularis. 60 mL 1 07/26/20 24 Active clobetasol 0.05 % gelIndications:Prur igo [...] BEFORE MEALS 180 Capsule 10/31/19 24 Active ketoconazole 2% shampoo (NIZORAL) 2 % shampooIndications: Scalp dermatophytosis SHAMPOO THE HAIR EVERY OTHER DAY 120 mL 1 01/16/20 24 Active busPIRone (BUSPAR) 30 mg tabletIndications:P TSD (post-traumatic stress disorder) TAKE 1 TABLET(30 MG) BY MOUTH TWICE DAILY 60 Tablet 12/12/19 24 Active FLUoxetine (PROZAC) 40 mg capsuleIndications: PTSD (post-traumatic stress disorder) Take 2 Capsules (80 mg) by mouth once daily. 60 Capsule 12/12/19 24 Active montelukast (SINGULAIR) 10 mg tabletIndications:M ild persistent asthma without complication (HC),Seasonal allergic rhinitis due to pollen TAKE 1 TABLET(10 MG) BY MOUTH AT BEDTIME 90 Tablet 02/12/20 24 Active clindamycin (CLEOCIN) 300 mg capsuleIndications: Prurigo nodularis Take 1 Capsule (300 mg) by mouth three times daily. 4 Capsule 03/05/20 24 Active benzonatate 100 mg capsuleIndications: Cough, unspecified type Take 1 Capsule (100 mg) by mouth 3 times daily if needed for Cough. 15 Capsule 06/06/19 25 Active hydrocortisone 1 % creamIndications:Op en wound of scalp, unspecified open wound type, initial encounter Apply topically to affected area(s) two times daily. 20 g 06/06/19 25 Active Active Problems Problem Noted Date Diagnosed [...] migrainosus 05/15/2009 Overview (02/01/2008): Hx of migraines Immunizations Immunization Administration Dates Next Due AMB Influenza, IIV3 (Age >=3 years)(Flu Clinic Only) 01/01/2008 AMB Influenza, IIV4 PF (=>6 mos Flulaval,Fluzone Fluarix)(Flu Clinic Only) 01/08/2015 COVID-19 vaccine ([facility] [employer]-Bio NTech 30mcg/0.3mL) 12YO+ BIVALENT PF, MDV 04/29/2022 COVID-19 vaccine (Pfizer-Bio NTech 30mcg/0.3mL) 12YO+ NORIS-SUCROSE PF, MDV 05/26/2021 Hepatitis B (Adult) 08/30/2011,10/22/2007,2007 Influenza A (H1N1), Inactiva pratibha (Age >=3 Years) 02/17/2009 Influenza Virus, Unspecified 04/29/2022, 03/08/2021,01/27/2020,2001 Influenza, CCIIV3 (Age >=6 M O) (Egg Free) 11/29/2023 Influenza, IIV3 (Age 6-35 mos) 12/01/2009,2008,05/16/2007 Influenza, IIV3 (Age >=3 years) 12/05/19 13,12/01/2011,12/21/2010,2009,02/17/2009,05/16/2007 Influenza, IIV4 04/29/2022, 8,12/23/2016,2015,01/08/2015,11/27/2013 Influenza, IIV4 (=>6mos) MDV 10/24/2018,10/31/19 18 MMR 2007 Pneumococcal Conj 20-valent (Prevnar 20) 11/29/2023 Pneumococcal Poly,23-Valent (Pneumovax) 03/10/2010 Pneumococcal conj 13-Valent (Prevnar 13) 12/23/2016 Td (Age >=7 Years) 04/19/2005,07/09/2003, 003 Td, Preservative Free (age > = 7 Years) 06/28/2022 Tdap 07/05/2012,09/19/2007 Tuberculin (PPD) 2007,09/19/2007 Zoster (Shingrix-RZV, recombinant) 12/31/2023 Family History Medical History Relation Name Comments [...] Date Smoking Tobacco: Every Day Cigarettes 0.3 16.6 Started: 2008 Smokeless Tobacco: Never Tobacco Cessation:Ready to Q uit: No; Counseling Given: Yes Alcohol Use Standard Drinks/Week Comments Yes 0 (1 standard drink = 0.6 oz pur e alcohol) 1-2 drinks per week PHQ-2 Answer Date Recorded PHQ-2 TOTAL SCORE 4 08/29/2022 Social Connections Answer Date Recorded Do you often feel lonely or isolated from those around you? 4 03/31/2023 Alcohol Use Answer Date Recorded How often do you have a drink containing alcohol ? 2 08/29/2022 Average Number of Drinks Not on file 023 Frequency of Binge Drinking Not on file 08/11 Financial Resource Strain Answer Date R ecorded Difficulty of Paying Living Expenses Not on file 03/31/2023 Difficulty of Paying Living Expenses 3 03/31/2023 Food Insecurity Answer Date Recorded Do you worry your food will run out before you are able to buy more? 2 03/31/2023 Transportation Needs Answer Date Record ed Does lack of transportation keep you from medica l appointments? 1 03/31/2023 Does lack of transportation keep you from work, meetings or getting things that you need? 1 03/31/2023 Housing Stability Answer Date Recorded What is your housing situation today? 1 03/31/2023 Interpersonal Safety Answer Date Record ed Are you being hit, kicked, p ushed or yelled at (see row info)? No 06/05/2024 Interpersonal Safety Abuse 12 - 18 Not on file 06/05/2024 Interpersonal Safety Ambulatory Vulnerability No t on file 06/05/2024 Utilities Answer Date Recorded Do you have trouble paying f or utilities (for example, heat, electricity, water, phone)? 2 03/31/2023 Comments No Sex and Gender Information Value Date Recorded Sex Assigned at Female 09/06/2019 1:40 PM CDT Legal Sex Female 5:35 AM COMPUTER SYSTEMS ADMINISTRATOR Gender Identity Female 09/06/2019 1:40 PM CDT Sexual Orientation Straight 09/06/2019 1: 40 PM CDT Occupation Industry Job Start Date Job End Date unemployed Not on file Not on file Not on file Obstetrics History Para Term AB IAB SAB Ectopic Multiple Livin g Live Births 5 1 1 0 4 0 4 0 0 1 Date Outcome GA Total Labor Labor//3rd Weight Sex Type Anes PTL Merry A1 A5 Name Clin SAB SAB SAB SAB Term Last Filed Vital Signs Vital Sign Reading Time Taken Comments Blood Pressure 122/82 06/05/2024 7:18 PM CDT Pulse 79 06/05/2024 7:18 PM CDT Temperature 37.1 C (98.7 F) 06/05/2024 7:18 PM CDT Respiratory Rate 18 06/05/2024 7:18 PM CDT Oxygen Saturation 97% 06/05/2024 7:18 PM CDT Inhaled Oxygen Concentration - - Weight 77.6 kg (171 lb 1.2 oz) 06/05/2024 7:18 P M CDT Height 157.5 cm (5' 2) 06/05/2024 7:23 PM CDT Body Mass Index 31.29 06/05/2024 7:18 PM CDT Plan of Treatment Health Maintenance Due Date Last Done Comments Mammogram for age 45-75 12/07/2018 12/08/19 18, 10/23/2012, 05/07/2010 Pap test for age 21-65 11/29/2022 8, 11/29/2017, 05/28/2013, Additional history exists Depression screening for age 12+ 09/01/2023 08/31/2022, 08/30/2022, 08/29/2022, Additional history exists Zoster (shingles) series for age 50+ (2 of 2) 02/25/2024 12/31/2023 BMI (ht and wt on same day) for age 18+ 09/27/2024 2023, 07/17/2023, 04/27/2023, Additional history exists Influenza Vaccine (#1) 2024 , 04/29/2022, 04/29/2022, Additional history exists Lipids for age 45-75 02/28/2027 02/28/2022, 10/13/2015, 08/15/2012, Additional history exists Tetanus booster 06/28/2032 06/28/2022, 06/12, 09/19/2007, Additional history exists Colonoscopy through age 75 09/22/2032 09/22/2022 Hepatitis B series for 19+ Completed 08/29, 10/22/2007, 09/19/2007 HIV for age 15-65 Completed 03/26/2013 Hepatitis C screening for ag e 18-79 Completed 03/26/2013, 03/22/2012 COVID-19 vaccine series Completed 11/29/19 24, 04/29/2022, 05/26/2021, Additional history exists Pneumococcal series for age 50+ Completed 11/29/2023, 12/23/2016, 03/10/2010 Medical Devices Implanted Type Area Bit Gatherer Device Identifier Shelf Expiration Date Model / Serial / Lot Stent Ent Reg Steroid-Releas ing Propel Bioabsorb - [id number] Implanted:Qty: 1 on 01/07/2019 by Eliseo Hansen MD at [facility] Ent Implants [employer] one sinus implant 09/01/2019 [id number]# / / [id number] Description:Propel One sinus implant Nominal length: 23mm Stent Ent Reg Steroid-Releas ing Propel Bioabsorb - [id number] Implanted:Qty: 1 on 01/07/2019 by Elieso Hansen MD at [facility] [employer] Implants [employer] one sinus implant 10/14/2019 [id number]# / / [id number] Description:Propel One sinus implant Nominal length: 23mm Procedures Procedure Name Priority Date/Time Associated Diagnosis Comments COLONOSCOPY 09/22/2022 11:27 AM CDT LIPID PANEL W REFLEX MEASURED LDL Routine 02/28/2022 9:23 AM COMPUTER SYSTEMS ADMINISTRATOR Mixed hyperlipidemia XR MAMMO BILAT SCREENING Routine 12/07/2017 4:01 PM CDT Visit for screening mammogram WORKS MANAGER THIN PREP PAP SCREEN IMAGED Routine 11/29/2017 11:22 AM CDT Pap smear for cervical cancer screening ANTI HIV 1/2 Routine 03/26/2013 11:54 AM COMPUTER SYSTEMS ADMINISTRATOR Screen for STD (sexually transmitted disease) ANTI HCV Routine 03/26/2013 11:54 AM COMPUTER SYSTEMS ADMINISTRATOR Screen for STD (sexually transmitted disease) from [...] adequate candidate for conscious sedation. The endoscope -[id number] was passed through the anus andadvanced to [...] 11:27 AM Paula Bob DO PROCEDURE ORD Final Res ult * LIPID PANEL W REFLEX MEASURED LDL (02/28/2022 9:23 AM COMPUTER SYSTEMS ADMINISTRATOR) CHOLESTEROL,TOTAL 162 100 - 199 mg/dL 03/01/2022 7:23 AM [facility] TRIGLYCERIDES 128 <150 mg/dL 03/01/2022 7:23 AM COMPUTER SYSTEMS ADMINISTRATOR [facility] HDL CHOLESTEROL 44 >40 mg/dL 7:23 AM [facility] NON-HDL CHOLESTEROL 118 <145 mg/dl 03/01/2022 7:23 AM [facility] CHOL/HDL RATIO 3.68 <4.50 03/01/2022 7:23 AM [facility] LDL CHOLESTEROL 92 <=130 mg/dL 03/01/2022 7:23 AM [facility] VLDL CHOLESTEROL 26 <=30 mg/dL 03/01/2022 7:23 AM [facility] PROVIDER ORDERED STATUS RANDOM 03/01/2022 7:23 AM [facility] Blood BLOOD SPECIMEN / Unknown Venipuncture / Unknown 02/28/2022 9:23 AM COMPUTER SYSTEMS ADMINISTRATOR 02/28/2022 9:23 AM COMPUTER SYSTEMS ADMINISTRATOR Bj Noe MD CHEMISTRY Final Re sult [facility] [address] [place] [address], [place] * XR MAMMO BILAT SCREENING (12/07/2017 4:01 PM CDT) Anatomical Region Laterality Modality BREASTS, Breast Left, Breast Right Bilateral Mammography Impressions 12/08/2017 3:27 PM CDT BI-RADS Category 0: Incomplete: Need Additional Imaging Evaluation and/or Prior Mammograms for Comparison RECOMMENDATION: BILATERAL breast ultrasound. Jose Alberto Wesley D.O. Diagnostic Radiologist [email or web address] / Narrative 12/08/2017 3:27 PM CDT BILATERAL DIGITAL SCREENING MAMMOGRAM WITH COMPUTER-AIDED DETECTION, 12/07/2017 CLINICAL HISTORY: Screening. COMPARISON: 10/23/2012, 05/07/2010. TECHNIQUE: These mammographic images have been obtained using digital technique. CC and MLO projections of both breasts interpreted with the aid of computer-aided detection. BREAST COMPOSITION: Scattered fibroglandular densities. FINDINGS: In the RIGHT breast there is a new well-circumscribed slightly lobulated 18 mm mass at the mid 6 o'clock position and a probable smaller 7 mm mass at the 6 o'clock position anterior to the larger lesion. In the LEFT breast there is a new 7 mm mass in the mid 3 o'clock position. No areas of architectural distortion or suspicious calcifications seen. us Bj Noe MD MAMMO Final Re sult * WORKS MANAGER THIN PREP PAP SCREEN IMAGED (11/29/2017 11:22 AM CDT) Case Report Gynecologic Cytology Report Case: [id number] Authorizing Provider: Bj Noe MD Collected: 11/29/2017 1122 Ordering Location: [facility] Received: 11/29/2017 1152 Clinic First Screen: Hubert Nicholas Specimen: WORKS MANAGER ThinPrep Vial Screening, Cervical 12/08/2017 2:35 PM [facility]T [facility] INTERPRETATION/ RESULT NEGATIVE FOR INTRAEPITHELIAL LESION OR MALIGNANCY (NIL) (none) 12/08/2017 2:35 PM CDT [facility] [employer] [facility] at 1435 CDT SPECIMEN ADEQUACY Satisfactory for evaluation No endocervical component seen 12/08/2017 2:35 PM CDT [facility] [employer] ENTRAL LABORATORY HPV REQUEST HPV and PAP 12/08/2017 2:35 PM CDT [facility] Date of LMP 11/12/17 12/08/2017 2:35 PM CDT [facility] [employer] EN[facility]AL [facility] Last Pap Date 05/28/13 12/08/2017 2:35 PM CDT [facility] [employer] [facility] Last Pap Result NIL 8 2:35 PM CDT [facility] [facility] Abnormal Pap or [place] Bx in last 5 years No 12/08/2017 2:35 PM CDT [facility] [employer] EN[facility]AL LAB[facility] Menstrual Status Regular Periods 12/08/2017 2:35 PM CDT [facility] [employer] [facility] [place] Bx Done Today No 12/08/2017 2:35 PM CDT [facility] [employer] [facility] Additional Information None given 12/08/2017 2:35 PM CDT [facility] [employer] [facility] Automated Review Successful 12/08/2017 2:35 PM CDT [facility] [facility] Comment:Specimen processed s uccessfully by automated share dairy farmer device, ThinPrep Imaging System, [employer] ANCILLARY TESTING WORKS MANAGER HPV Ordered, Please see separate report 12/08/2017 2:35 PM CDT [facility] Note The pap test is a screening technique, not a diagnostic procedure. It is used primarily to screen for squamous cancers and precursor lesions. Published studies have shown that it is subject to both false negative and false positive results. The pap test should not be used as the sole means to diagnose or exclude pre-malignant and malignant lesions. Cytology is screened and interpreted at [facility] - [address], [place] [address] and [facility] - [address]; [place] [address] [address] [facility] - [address]; [place] [address] and [facility] [address]; [place] [address] 12/08/2017 2:35 PM CDT [facility] Other (Cervical) Non-Blood / Unknown 11/29/2017 11:22 AM CDT 11/29/2017 11:52 AM CDT us Bj Noe MD PATHOLOGY/CYTOLOGY Final Result [facility] [address] [place] [address], * ANTI HCV (03/26/2013 11:54 AM COMPUTER SYSTEMS ADMINISTRATOR) ANTI HCV Non-reacti ve [facility] Blood specimen (specimen) BLOOD SPECIMEN / Unknown 03/26/2013 11:54 AM COMPUTER SYSTEMS ADMINISTRATOR 03/26/2013 11:52 AM COMPUTER SYSTEMS ADMINISTRATOR us Lupis GOETZ SEND OUTS Final Resu lt [facility] INTERNAL ZIP [id number] [place] [address] * ANTI HIV 1/2 (03/26/2013 11:54 AM COMPUTER SYSTEMS ADMINISTRATOR) ANTI HIV 1/2 Non-reacti ve [facility] Blood specimen (specimen) BLOOD SPECIMEN / Unknown 03/26/2013 11:54 AM COMPUTER SYSTEMS ADMINISTRATOR 03/26/2013 11:52 AM COMPUTER SYSTEMS ADMINISTRATOR us Lupis GOETZ SEND OUTS Final Resu lt [facility] INTERNAL ZIP [id number] [address] [place] [address] from Last 3 Months or Most Recently Relevant to Health Maintenance Insurance MEDICARE PART A HB ONLY Member Subscriber Plan / Payer (Ef fective 2009-Present) Name:Diya Soto Member ID:[id number] Relation to Subscriber:Self Name:Diya Soto Subscriber ID:[id number] Payer ID:Not on file Group ID:Not on file Type:Not on file Address: ATTN: CLAIMS [address] MEDICARE PART B HB ONLY MEDICARE PB ONLY Member Subscriber Plan / Payer (Ef fective 2019-Present) Name:Diya Soto Member ID:[id number] Relation to Subscriber:Self Name:Diya Soto Subscriber ID:[id number] Payer ID:Not on file Group ID:Not on file Type:Not on file Address: ATTN: CLAIMS [address] [facility] [id number] [place] [id number] MEDICARE PART A HB ONLY MEDICARE PART B HB ONLY [employer] INS Advance Directives * Full Code (Latest Code [...] Status Discussion: Per Existing Order Care Teams Stile Ripsaw Operator Relationship Specialty Start Date End Date Le[place] [address] PCP - General Family Practice 07/05/22 Montana Lomeli MD Psychiatry 05/28/13
[2024-10-19 12:38] VITALS: BP 114/74; PULSE 71; RESP 18; TEMP 36.3; O2SAT 96; BMI 27.6
--- NOTE | 2024-10-19 12:50 | ED.GENADULT ---
HPI - General Adult General Chief complaint: Skin/Abscess/Foreign Body Stated complaint: Infection in scalp Time Seen by Provider: 10/19/24 12:37 History of Present Illness HPI narrative: Patient is a 54-year-old woman who is prone to picking at her skin. Patient has had numerous minor cellulitis events primarily on her scalp. She again has a somewhat fast during packing spot in the posterior occiput today. No systemic symptoms of fevers chills night sweats. Really no drainage or discharge that would allow for culture.. She has a number of other spots where she can reach that had been packed as well. Patient is inflammatory bowel disease as well and states that her bowel disease under good control. Her tetanus shot is up-to-date. She really has no other complaints but is been having problems for the last several days. Patient has been seen many times in the emergency room generally clears with a course of Augmentin. Related Data Home Medications ?Medication ?Instructions ?Recorded ?Confirmed Lactobacillus acidophilus 10 mg PO QDAY 12/23/21 03/19/23 buspirone 5 mg tablet 30 mg PO BID 12/23/21 03/19/23 cholecalciferol (vitamin D3) 50 2,000 unit PO DAILY 12/23/21 03/19/23 mcg (2,000 unit) tablet divalproex 125 mg tablet,delayed 500 mg PO QHS 12/23/21 03/19/23 release epinephrine 0.3 mg/0.3 mL 0.3 mg IM .As Needed PRN 12/23/21 03/19/23 injection, auto-injector fluoxetine 20 mg capsule 40 mg PO DAILY 12/23/21 07/06/23 fluticasone propionate 230 1 inh inhalation BID 12/23/21 03/19/23 mcg-salmeterol 21 mcg/actuation HFA inhaler gabapentin 300 mg capsule 300 mg PO Q8H 12/23/21 07/06/23 levothyroxine 125 mcg tablet 125 mcg PO DAILY 12/23/21 07/06/23 lysine 500 mg tablet 500 mg PO Q12H 12/23/21 07/06/23 melatonin 3 mg capsule 6 mg PO .Bedtime as needed PRN 12/23/21 03/19/23 montelukast 10 mg tablet 10 mg PO .Bedtime 12/23/21 03/19/23 omeprazole 20 mg capsule,delayed 20 mg PO BID 12/23/21 07/06/23 release tizanidine 2 mg capsule 2 mg PO Q8H PRN 12/23/21 03/19/23 albuterol sulfate 90 mcg/actuation 2 inh inhalation Q4H PRN 02/22/22 07/06/23 aerosol inhaler benzoyl peroxide 10 % topical 1 applic topical DAILY 02/22/22 03/19/23 cleanser clonidine HCl 0.1 mg tablet 0.1 mg PO Q12H 02/22/22 03/19/23 fexofenadine 180 mg tablet 180 mg PO DAILY 02/22/22 07/06/23 (Allergy Relief (fexofenadine)) hydroxyzine HCl 25 mg tablet 25 mg PO Q6H PRN 02/22/22 03/19/23 ipratropium 0.5 mg-albuterol 3 mg 3 ml inhalation Q6-8H PRN 02/22/22 03/19/23 (2.5 mg base)/3 mL nebulization soln mometasone 50 mcg/actuation nasal 2 spray intranasal Q12H 02/22/22 03/19/23 spray buspirone 30 mg tablet 30 mg PO BID 03/19/23 07/06/23 ketoconazole 2 % shampoo topical DAILY 03/19/23 ondansetron HCl 8 mg tablet mg PO 03/19/23 tizanidine 2 mg tablet 2 mg PO 3XD 03/19/23 07/06/23 clindamycin phosphate 1 % topical topical 07/06/23 solution clobetasol 0.05 % scalp solution 1 applic topical BID 07/06/23 07/06/23 fluoxetine 40 mg capsule mg PO 07/06/23 fluticasone 100 mcg-salmeterol 50 inhalation 07/06/23 mcg/dose blistr powdr for inhalation (Wixela Inhub) primidone 50 mg tablet 50 mg PO QPM 07/06/23 07/06/23 sulfamethoxazole 800 1 tab PO BID 07/06/23 07/06/23 mg-trimethoprim 160 mg tablet Previous Rx's ?Medication ?Instructions ?Recorded methylprednisolone 4 mg tablet 4 - 12 mg (1 - 3 x 4 mg) PO DAILY 03/20/23 #11 tabs amoxicillin 875 mg-potassium 1 tab PO BID #20 tabs 11/12/23 clavulanate 125 mg tablet methylprednisolone 4 mg tablets in See Rx Instructions PO .COMPLEX 11/12/23 a dose pack (Medrol (Murray)) #21 ea amoxicillin 500 mg tablet 500 mg PO TID #15 tabs 12/22/23 ketoconazole 2 % shampoo 1 applic topical 3XW #120 mL 12/22/23 prednisone 20 mg tablet 20 mg PO DAILY #5 tabs 12/22/23 Allergies Allergy/AdvReac Type Severity Reaction Status Date / Time hydrocodone Allergy Mild Rash Verified 11/12/23 11:49 hydromorphone (From Dilaudid) Allergy Mild itching Verified 11/12/23 11:49 pollen extracts Allergy Mild itching Verified 11/12/23 11:49 sulfamethoxazole (From Allergy Mild Rash Verified 11/12/23 11:49 Bactrim) trimethoprim (From Bactrim) Allergy Mild Rash Verified 11/12/23 11:49 wheat Allergy Mild gluten Verified 07/06/23 19:15 intolerance quetiapine (From Seroquel) Allergy Unknown Verified 11/12/23 11:49 oxycodone Allergy Verified 11/12/23 11:49 prednisone Allergy itching Verified 11/12/23 11:49 Tetracyclines Allergy Rash Verified 11/12/23 11:49 tramadol Allergy loss of Verified 11/12/23 11:49 memory trazodone Allergy memory loss Verified 11/12/23 11:49 venlafaxine Allergy sweating Verified 11/12/23 11:49 potassium sparing diuretics Allergy Uncoded 02/23/22 00:18 Review of Systems Status of ROS: Reports: 10 or more systems reviewed and unremarkable except as noted in History and below [facility] Medical History MRSA (methicillin resistant staph aureus) culture positive ?Z22.322 - Carrier or suspected carrier of Methicillin resistant Staphylococcus aureus (ICD-10) Abnormal LFTs ?R79.89 - Other specified abnormal findings of blood chemistry (ICD-10) Hiatal hernia ?K44.9 - Diaphragmatic hernia without obstruction or gangrene (ICD-10) Seasonal allergic rhinitis due to pollen ?J30.1 - Allergic rhinitis due to pollen (ICD-10) PTSD (post-traumatic stress disorder) ?F43.10 - Post-traumatic stress disorder, unspecified (ICD-10) Chronic sinusitis ?J32.9 - Chronic sinusitis, unspecified (ICD-10) DDD (degenerative disc disease), cervical ?M50.30 - Other cervical disc degeneration, unspecified cervical region (ICD-10) Adjustment disorder with depressed mood ?F43.21 - Adjustment disorder with depressed mood (ICD-10) Tachycardia, unspecified ?R00.0 - Tachycardia, unspecified (ICD-10) Reflux esophagitis ?K21.00 - Gastro-esophageal reflux disease with esophagitis, without bleeding (ICD-10) KEE (nonalcoholic steatohepatitis) ?K75.81 - Nonalcoholic steatohepatitis (KEE) (ICD-10) Mixed hyperlipidemia ?E78.2 - Mixed hyperlipidemia (ICD-10) Migraine ?G43.909 - Migraine, unspecified, not intractable, without status migrainosus (ICD-10) Major depression, recurrent ?F33.9 - Major depressive disorder, recurrent, unspecified (ICD-10) Hypothyroidism, acquired ?E03.9 - Hypothyroidism, unspecified (ICD-10) Generalized anxiety disorder ?F41.1 - Generalized anxiety disorder (ICD-10) Diaphragmatic hernia without mention of obstruction or gangrene ?K44.9 - Diaphragmatic hernia without obstruction or gangrene (ICD-10) Cystic acne ?L70.0 - Acne vulgaris (ICD-10) Chondromalacia of both patellae ?M22.41 - Chondromalacia patellae, right knee (ICD-10) ?M22.42 - Chondromalacia patellae, left knee (ICD-10) Celiac disease ?K90.0 - Celiac disease (ICD-10) Anxiety ?F41.9 - Anxiety disorder, unspecified (ICD-10) Anemia ?D64.9 - Anemia, unspecified (ICD-10) Tobacco abuse ?Z72.0 - Tobacco use (ICD-10) Palpitations ?R00.2 - Palpitations (ICD-10) Osteoarthritis of patellofemoral joints of both knees ?M17.0 - Bilateral primary osteoarthritis of knee (ICD-10) Methicillin resistant Staphylococcus aureus infection ?A49.02 - Methicillin resistant Staphylococcus aureus infection, unspecified site (ICD-10) History of methicillin resistant Staphylococcus aureus infection ?Z86.14 - Personal history of Methicillin resistant Staphylococcus aureus infection (ICD-10) Gastroesophageal reflux disease ?K21.9 - Gastro-esophageal reflux disease without esophagitis (ICD-10) Dermatitis ?L30.9 - Dermatitis, unspecified (ICD-10) Chronic low back pain ?M54.50 - Low back pain, unspecified (ICD-10) ?G89.29 - Other chronic pain (ICD-10) Asthma ?J45.909 - Unspecified asthma, uncomplicated (ICD-10) Asthma (11/27/12) ?J45.909 - Unspecified asthma, uncomplicated (ICD-10) Surgical History [place] teeth extracted ?K08.409 - Partial loss of teeth, unspecified cause, unspecified class (ICD-10) Social History Smoking Status: Current every day smoker What tobacco products do you use: cigarettes Smoking packs per day: 0.5 Smoking cigarettes per day: 10.0 Years smoked: 30 Smoking pack-years: 15.00 Do you use any of these nicotine containing products: E-Cigarettes and Vaping Products Second hand tobacco smoke exposure: No How often do you have a drink containing alcohol: monthly or less How often do you have six or more drinks on one occasion: Never AUDIT-C Alcohol total score: 1 Non-prescribed substance use: marijuana (any form) service: Yes Exam Narrative: Exam Narrative: EXAM GENERAL: Patient appears comfortable and well. EYES: No scleral icterus. ENT: Tympanic membranes and oropharynx normal. THYROID: no thyroid nodules or thyromegaly. LYMPH: No supraclavicular or cervical lymphadenopathy. SKIN: Raised erythematous plaques primarily in her scalp and also on her torso and arms consistent with excoriations. EXT: No dependent lower extremity pedal edema. HEART: Regular rate and rhythm with no murmurs, rubs, or gallops. LUNGS: Clear to auscultation bilaterally with no crackles or wheezes. ABD: Soft, non tender, non distended. PSYCH: Good eye contact, speech is not pressured. Const: Vital Signs, click to edit/add: Vital Signs - 24 hr 10/19/24 12:38 Temperature 97.3 F L Pulse Rate [Right Pulse Oximeter] 71 Respiratory Rate 18 Blood Pressure [Ri ght Upper Arm] 114/74 Pulse Oximetry 96 Oxygen Delivery Me thod Room Air Course Vital Signs Vital signs: Initial Vital Signs Temperature 97.3 F L 10/19/24 12:38 Temperature Source Temporal Artery Scan 10/19/24 12:38 Pulse Rate 71 10/19/24 12:38 Respiratory Rate 18 10/19/24 12:38 Blood Pressure 114/74 10/19/24 12:38 Blood Pressure Mean 87 10/19/24 12:38 Blood Pressure Position Sitting 10/19/24 12:38 Pulse Oximetry 96 10/19/24 12:38 Oxygen Delivery Method Room Air 10/19/24 12:38 Vital Signs Temperature 97.3 F L 10/19/24 12:38 Pulse Rate 71 10/19/24 12:38 Respiratory Rate 18 10/19/24 12:38 Blood Pressure 114/74 10/19/24 12:38 Pulse Oximetry 96 10/19/24 12:38 Oxygen Delivery Method Room Air 10/19/24 12:38 Temperature 97.3 F L 10/19/24 12:38 Pulse Rate 71 10/19/24 12:38 Respiratory Rate 18 10/19/24 12:38 Blood Pressure 114/74 10/19/24 12:38 Pulse Oximetry 96 10/19/24 12:38 Oxygen Delivery Method Room Air 10/19/24 12:38 Medical Decision Making MDM Narrative Medical decision making narrative: Patient presents with mild infection of skin picking which is been the case in the past. She is up-to-date on her tetanus shot. Do not see any drainage that would allow for a significant cultured I did review her previous cultures and she generally either as no growth or grows out coagulase-negative Staph. I do think that treating her with Augmentin for the next 10 days is reasonable. I encouraged her to stop picking and follow-up with her primary physician. Discharge Plan Discharge Clinical Impression: Abscess of skin or subcutaneous tissue Patient Disposition: Home, Self-Care Condition: Stable Instructions: Abscess (ED) Additional Instructions: Augmentin as directed [id number] emollients and moisturizers Follow-up with your doctor as needed. Activity Level: No Restrictions Discharge Diet: Regular Prescriptions: No Action cholecalciferol (vitamin D3) 50 mcg (2,000 unit) tablet 2,000 unit PO DAILY fluticasone propion-salmeterol 230-21 mcg/actuation HFA aerosol inhaler 1 inh inhalation BID fluoxetine 20 mg capsule 40 mg PO DAILY lysine 500 mg tablet 500 mg PO Q12H epinephrine 0.3 mg/0.3 mL auto-injector 0.3 mg IM .As Needed PRN montelukast 10 mg tablet 10 mg PO .Bedtime omeprazole 20 mg capsule,delayed release(DR/EC) 20 mg PO BID divalproex 125 mg tablet,delayed release (DR/EC) 500 mg PO QHS levothyroxine 125 mcg tablet 125 mcg PO DAILY tizanidine 2 mg capsule 2 mg PO Q8H PRN gabapentin 300 mg capsule 300 mg PO Q8H buspirone 5 mg tablet 30 mg PO BID Lactobacillus acidophilus Capsule 10 mg PO QDAY melatonin 3 mg capsule 6 mg PO .Bedtime as needed PRN albuterol sulfate 90 mcg/actuation HFA aerosol inhaler 2 inh inhalation Q4H PRN ipratropium-albuterol 0.5 mg-3 mg(2.5 mg base)/3 mL solution for nebulization 3 ml inhalation Q6-8H PRN clonidine HCl 0.1 mg tablet 0.1 mg PO Q12H fexofenadine [Allergy Relief (fexofenadine)] 180 mg tablet 180 mg PO DAILY benzoyl peroxide 10 % cleanser 1 applic topical DAILY mometasone 50 mcg/actuation spray,non-aerosol 2 spray intranasal Q12H Rx Instructions: administer into each nostril hydroxyzine HCl 25 mg tablet 25 mg PO Q6H PRN ketoconazole 2 % shampoo topical DAILY tizanidine 2 mg tablet 2 mg PO 3XD ondansetron HCl 8 mg tablet PO buspirone 30 mg tablet 30 mg PO BID methylprednisolone 4 mg tablet 4 - 12 mg PO DAILY Qty: 11 0RF Rx Instructions: 3 tablets by mouth once daily for 2 days, then 2 tablets by mouth daily for 2 days. Then 1 tablet on Monday. fluoxetine 40 mg capsule PO primidone 50 mg tablet 50 mg PO QPM sulfamethoxazole-trimethoprim 800-160 mg tablet 1 tab PO BID fluticasone propion-salmeterol [Wixela Inhub] 100-50 mcg/dose blister with device INHALATION Patient Comments: [NO ORIGINAL SIG] clobetasol 0.05 % solution 1 applic topical BID clindamycin phosphate 1 % solution topical prednisone 20 mg tablet 20 mg PO DAILY Qty: 5 0RF amoxicillin 500 mg tablet 500 mg PO TID Qty: 15 0RF ketoconazole 2 % shampoo 1 applic topical 3XW Qty: 120 0RF methylprednisolone [Medrol (Murray)] 4 mg tablets,dose pack See Rx Instructions .ROUTE .COMPLEX Qty: 21 0RF Rx Instructions: orally per package directions amoxicillin-pot clavulanate 875-125 mg tablet 1 tab PO BID Qty: 20 1RF Follow Up/Referrals: Leyla Sands DO [Primary Care Provider, Family Practice] Stand Alone Forms: MyHealth Info Instructions
== END 2024-10-19 13:03 | disposition home or self-care (01) ==
LOC: ED 13:05
PROVIDERS: Emergency Provider Internal Medicine; PCP Family Medicine
DX: L02.811 Cutaneous abscess of head [any part, except face] (principal)
CPT/HCPCS: 99283

== ENCOUNTER 2024-12-03 02:29 | Emergency (ER) | payer MEDICARE, OTHER, SELFPAY ==
--- OUTSIDE RECORDS SUMMARY | 2011-10-24 06:41 | XMS_ITS | Continuity of Care Document ---
Author Organization [facility] [place] Address [address] [place] [address] Phone Care Team Providers Care Faith Healer Name Role Phone Panchito Jones MD Unavailable Unavailable Advance Directives Directive Yes / No Effective Date File Name No Information Encounters Encounter Description Practice Location Reason(s) For Visit Diagnoses Date Provider Providers Copied on Encounter COURT [place], [address], [place], [place], [id number], [place] tel:[phone] [facility] No Information Karen Flanagan. [address], [place], [address], [place]. tel:[phone] Referring Provider: Rommel Ryder MD, [address] [facility] [address], [place], [address]. tel:[phone] Family History Family Member Type Diagnosis Age At Onset No Information Payers Payer name Insurance type Covered democrat ID Authoriza tion(s) No Information Social History [...]
--- OUTSIDE RECORDS SUMMARY | 2011-10-24 06:41 | XMS_ITS | Continuity of Care Document ---
Author Organization [facility] [place] Address [address] [place] [address] Phone Care Team Providers Care Fiberglass Bonding Machine Tender Name Role Phone Panchito Jones MD Unavailable Unavailable Advance Directives Directive Yes / No Effective Date File Name No Information Encounters Encounter Description Practice Location Reason(s) For Visit Diagnoses Date Provider Providers Copied on Encounter COURT [place], [address] [address], [place], [place], [address], [place] tel:[phone] [facility] No Information Karen Flanagan. [address] [facility] [facility] [address], [place], [address], [place]. tel:[phone] Referring Provider: Rommel Ryder MD, [address] [facility] [address], [place], [address]. tel:[phone] Family History Family Member Type Diagnosis Age At Onset No Information Payers Payer name Insurance type Covered alliance party ID Authoriza tion(s) No Information Social [...]
--- OUTSIDE RECORDS SUMMARY | 2024-12-03 02:32 | XMS_ITS | Patient Health Record ---
Author Organization [facility] - Primary Address [address] [place] [id number] Care Team Providers Care Patient Observation Assistant Name Role Phone Different, PCP Primary Care Provider Jared Watts Unavailable [phone] Allergies Allergen (clinical drug ingredient) Drug/Non Drug [...] Status Risk Notes Problem Posttraumatic stress disorder (23000095) Post-traumatic stress disorder, chronic (F43.12) Active confirmed Problem Headache (36484701) Headache, unspecified (R51.9) Active confirmed Plan Of Treatment No Information Insurance Providers Payer Name Payer Address Payer Phone Subscriber Number Group Number Insured Name Patient Relationship to Insured Coverage Start Date Coverage End Date [employer] [address] [address] [place] [address] [phone] [id number] Korina Soto Self - patient is the insured Medical (General) History Medical History History ICD Code anxiety PTSD sleep apnea Hypothyroidism depression insomnia allergies parkinson's disease Surgical History Surgery Date(Month/Year) colonoscopy 11/2022
--- OUTSIDE RECORDS SUMMARY | 2024-12-03 02:32 | XMS_ITS | Clinical Summary ---
Author Organization [facility] Address [address] , [address] [place] [address] Phone Care Team Providers Care Rubbing Bed Operator Name Role Phone [facility] Unavailable Unava ilable Conditions or Problems Problem Name Problem Code Onset Date Status Entry Date Provider Comment Standard Description Annotate Tremor 66396439 (SNOMED CT) 04/05 Active 04/05 Yaima Ledesma DNP,[employer],CN P Tremor Occipital neuralgia, bilateral M54.81 (ICD-10-CM) 11/11 Active 11/11 Yaima Ledesma DNP,[employer],CN P Occipital neuralgia Cervical spasm 71948748 (SNOMED CT) 11/11 Active 11/11 Yaima Ledesma DNP,[employer],CN P Muscle spasm of head and/or neck 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 (ICD-10-CM) 07/30 Active 07/30 Vladimir Pa Jr, MD Circadian rhythm sleep disorder, delayed sleep phase type Parasomnia 89513759 (SNOMED CT) 11/09 Active 11/15 Rasmita Jackson [employer]ATION TA[employer]OR [employer]IST Parasomnia Neck pain, chronic 483055188963 7 (SNOMED CT) 09/14 Active 09/14 Rasmita Paz [employer] TAIL[employer] SPECIALIST Chronic neck pain Periodic limb movement disorder (PSG 2018: severe; 47/hr) 443639311 (SNOMED CT) 08/01 Active 08/02 Vladimir Pa Jr, MD Periodic limb movement disorder Obstructive sleep apnea (PSG 2018: mild; AHI 6; RDI 7; roz 83%) 55241016 (SNOMED CT) 08/01 Active 08/02 Vladimir Pa Jr, MD Obstructive sleep apnea syndrome Insomnia 016885453 (SNOMED CT) 07/27 Active 07/27 Vladimir Pa Jr, MD Insomnia Hypersomnia (ESS 17; NL MSLT 2010 [facility]) 38621486 (SNOMED CT) 07/27 Active 07/27 Vladimir Pa Jr, MD Hypersomnia NECK PAIN 69840505 (SNOMED CT) 04/09 Resolved 04/09 Rommel Ryder MD Neck pain SPASM OF MUSCLE 79356017 (SNOMED CT) 07/26 Resolved 07/27 Rommel Ryder MD Spasm CELIAC DISEASE 950376929 (SNOMED CT) Resolved Rommel Ryder MD Celiac disease FACIAL WEAKNESS 76664271 (SNOMED CT) 11/03 Resolved 11/03 Rommel Ryder MD Weakness of face muscles ANEMIA 986650830 (SNOMED CT) Resolved Rommel Ryder MD Anemia LUMBAR STRAIN 865753726 (SNOMED CT) 06/24 Resolved 06/24 Rommel Ryder MD Low back strain CERVICAL STRAIN 040655773 (SNOMED CT) 06/24 Resolved 06/24 Rommel Ryder MD Strain of neck muscle HEADACHE 69481960 (SNOMED CT) 10/28 Resolved 10/28 Rommel Ryder MD Headache FATIGUE (NL MSLT) 780.79 (ICD-9-CM) 12/06 Resolved 12/06 Rommel Ryder MD Other malaise and fatigue CHRONIC MIGRAINE W/O AURA W/O INTRACTABLE W/O SM G43.709 (ICD-10-CM) Active Phyllis Wong RN, MS, [employer], [employer]IST Chronic migraine without aura, not intractable, without status migrainosus ANEMIA 710349310 (SNOMED CT) Removed Phyllis Wong RN, MS, [employer], [employer] SPECIALIST Anemia CELIAC DISEASE 368423595 (SNOMED CT) Removed Phyllis Wong RN, MS, [employer], [employer] SPECIALIST Celiac disease NECK PAIN 51402299 (SNOMED CT) 04/09 Removed 04/09 Yaima Ledesma DNP,[employer],CN P Neck pain FATIGUE (NL MSLT) 780.79 (ICD-9-CM) 12/06 Removed 12/06 Vladimir Pa Jr, MD Other malaise and fatigue HYPERSOMNIA 18196998 (SNOMED CT) 09/03 Resolved 09/03 Vladimir Pa Jr, MD Hypersomnia SLEEP DISTURBANCE, NOS 95121830 (SNOMED CT) 08/30 Resolved 08/30 Vladimir Pa Jr, MD Dyssomnia HYPERSOMNIA 89611394 (SNOMED CT) 09/03 Removed 09/03 Vladimir Pa Jr, MD Hypersomnia SNORING 37867611 (SNOMED CT) 09/03 Active 09/03 Vladimir Pa Jr, MD Snoring SLEEP DISTURBANCE, NOS 98953690 (SNOMED CT) 08/30 Removed 08/30 Yaima Ledesma DNP,[employer],CN P Dyssomnia SPASM OF MUSCLE 72903192 (SNOMED CT) 07/26 Removed 07/27 Yaima Ledesma DNP,[employer] TA[employer],CN P Spasm HEADACHE 21618165 (SNOMED CT) 10/28 Removed 10/28 Rommel Ryder MD Headache FACIAL WEAKNESS 34167332 (SNOMED CT) 11/03 Removed 11/03 Carson Luther MD Weakness of face muscles LUMBAR STRAIN 697327309 (SNOMED CT) 06/24 Removed 06/24 Valerio Zee MD Low back strain CERVICAL STRAIN 882516135 (SNOMED CT) 06/24 Removed 06/24 Valerio Zee MD Strain of neck muscle Medications Medication Instructions Start Date Stop Date Generic Name NDC Provider DIVALPROEX SODIUM ER 500 MG [id number] Take 1 tablet by mouth every night 08/05 divalproex [id number] Nay Tan PA-C DIVALPROEX SODIUM ER 500 MG [id number] TAKE 1 TABLET BY MOUTH AT BEDTIME *APPOINTMENT NEEDED* 10/05 divalproex 47513049866 Nay Tan PA-C NURTEC 75 MG TBDP Take 1 tab by mouth (place on or under tongue) at migraine onset. Maximum dose: 1 tab/24 hrs rimegepant 94319465683 Nay Tan PA-C TIZANIDINE HCL 2 MG TABS Take 1 tablet by mouth every eight hours as needed 04/01 tizanidine 06846131946 Rommel Ryder MD FLUOXETINE HCL 40 MG CAPS Take 2 capsule by mouth every morning 07/21 fluoxetine 04098871217 Rommel Ryder MD WIXELA INHUB 100-50 MCG/ACT AEPB Use 1 by mouth twice a day 11/04 fluticasone propion-salmeterol 37639760060 Rommel Ryder MD OMEPRAZOLE 20 MG CPDR omeprazole 46408814600 Nay Tan PA-C MELATONIN TABLET 3 mg every night 08/09 MELATONIN TABLET Nay Tan PA-C MONTELUKAST SODIUM 10 MG TABS Take 1 tablet by mouth every night 11/11 montelukast 98085574267 Rommel Ryder MD LEVOTHYROXINE SODIUM 125 MCG TABS 07/26 levothyroxine 70019954346 Rommel Ryder MD GABAPENTIN 300 MG CAPS 900 mg by mouth three times a day 05/06 gabapentin 46218022594 Rommel Ryder MD DIVALPROEX SODIUM ER 500 MG [id number] Take 1 tablet by mouth every night 08/05 divalproex 00765915152 Dahlia Henry LPN AJOVY 225 MG/1.5ML SOAJ Inject 1 pen injector subcutaneously once a month 11/19 frepricilla-[facility] [id number] Nay Tan PA-C DIVALPROEX SODIUM ER 500 MG [id number] TAKE 1 TABLET BY MOUTH AT BEDTIME 08/05 DIVALPROEX SODIUM 65772847538 Rommel Ryder MD EMGALITY 120 MG/ML SOAJ 240 mg on first month then 120 mg Q month 08/05 [facility] 74718983316 Rommel Ryder MD DEPAKOTE ER 500 MG [id number] 500 mg Q HS 10/05 DIVALPROEX SODIUM 82225458422 Rommel Ryder MD GABAPENTIN 300 MG CAPS 900 mg PO TID 05/06 GABAPENTIN 15287763043 Rommel Ryder MD BELSOMRA 20 MG TABS 1 orally QHS at 11:45pm for 12am bedtime 07/30 SUVOREXANT 52465027779 Rommel Ryder MD MULTIVITAMINS TABS 07/26 MULTIPLE VITAMIN 25555692894 Rommel Ryder MD B COMPLEX ORAL TABLET 08/30 B COMPLEX VITAMINS 55930278472 Rommel Ryder MD PROVENTIL HFA 108 (90 BASE) MCG/ACT INHALATION AEROSOL SOLUTION 08/05 ALBUTEROL SULFATE 70226367612 Rommel Ryder MD BUSPIRONE HCL 10 MG TABS 08/05 BUSPIRONE HCL 00453012416 Rommel Ryder MD VITAMIN D CAPS 4000u 08/30 CHOLECALCIFEROL CAPS 44657729644 Rommel Ryder MD SINGULAIR 10 MG TABS 08/05 MONTELUKAST SODIUM 28760392996 Rommel Ryder MD FLUOXETINE HCL 20 MG CAPS 05/19 FLUOXETINE HCL 52818685475 Rommel Ryder MD MONTELUKAST SODIUM 10 MG TABS TK 1 T PO QHS 11/11 MONTELUKAST SODIUM 97337338441 Rommel Ryder MD FLUOXETINE HCL 40 MG CAPS TK 2 CS PO QAM 07/21 FLUOXETINE HCL 81731947187 Rommel Ryder MD WIXELA INHUB 100-50 MCG/ACT AEPB USE 1 INHALATION BY MOUTH TWICE DAILY 11/04 FLUTICASONE-SALMETE ROL 81986257149 Rommel Ryder MD TIZANIDINE HCL 2 MG TABS TAKE 1 TABLET BY MOUTH EVERY 8 HOURS NEEDED 04/01 TIZANIDINE HCL 76577018690 Rommel Ryder MD MEDROL 4 MG TBPK 1 dose pack to be taken according to instructions on package. 04/03 METHYLPREDNISOLONE 78421054830 Pamela Paz APRN, CNP BELSOMRA 20 MG TABS 1 orally QHS at 11:45pm for 12am bedtime 07/30 SUVOREXANT 31554117049 Vladimir Pa Jr, MD BELSOMRA 15 MG TABS 1 orally QHS at 11:45pm for 12am bedtime (free 10 tab trial) 07/30 SUVOREXANT [id number] Vladimir Pa Jr, MD BELSOMRA 20 MG TABS 1 orally QHS at 11:45pm for 12am bedtime (free 10 tab trial) 07/30 SUVOREXANT [id number] Vladimir Pa Jr, MD BELSOMRA 15 MG TABS 1 orally QHS at 11:45pm for 12am bedtime (free 10 tab trial) 07/30 SUVOREXANT [id number] Vladimir Pa Jr, MD TIZANIDINE HCL 2 MG TABS 07/16 TIZANIDINE HCL 30633905697 Vladimir Pa Jr, MD LORAZEPAM 1 MG TABS TAKE 1 TABLET BY MOUTH TWICE A DAY 05/10 LORAZEPAM 92145439036 Vladimir Pa Jr, MD MELATONIN TABLET 3mg at 9 pm 08/09 MELATONIN TABS 25525058208 Pamela Paz APRN [employer]IST NORTREL 0.5/0.75/1-35 MG-MCG TABS 07/26 NORETHIN-ETH ESTRAD TRIPHASIC 97671078919 Pamela Paz [employer] TAILOR [employer] SPECIALIST ATIVAN 1 MG TABS 07/27 LORAZEPAM 48148962672 Vladimir Pa Jr, MD DEPAKOTE ER 500 MG [id number] 500 mg HS 10/17 DIVALPROEX SODIUM 56359119013 Vladimir Pa Jr, MD DIVALPROEX SODIUM 500 MG TBEC TAKE 1 TABLET BY MOUTH AT BEDTIME. 10/05 DIVALPROEX SODIUM 72048417406 Vladimir Pa Jr, MD LORAZEPAM 1 MG TABS TAKE 1 TABLET BY MOUTH TWICE A DAY 05/10 LORAZEPAM 89976871750 Vladimir Pa Jr, MD TIZANIDINE HCL 2 MG TABS 07/16 TIZANIDINE HCL 52084215127 Vladimir Pa Jr, MD FLUOXETINE HCL 20 MG CAPS 05/19 FLUOXETINE HCL 61133365073 Vladimir Pa Jr, MD NORTREL 0.5/0.75/1-35 MG-MCG TABS 07/26 NORETHIN-ETH ESTRAD TRIPHASIC 21598530677 Vladimir Pa Jr, MD SPIRONOLACTONE 50 MG TABS 10/17 SPIRONOLACTONE 53873166701 Vladimir Pa Jr, MD SPIRONOLACTONE 50 MG TABS 10/17 SPIRONOLACTONE 83339809411 Rommel Ryder MD DEPAKOTE ER 500 MG [id number] 500 mg HS 10/17 DIVALPROEX SODIUM 55433113934 Rommel Ryder MD MAGNESIUM CAPSULE 08/30 MAGNESIUM OXIDE CAPS 51262653437 Rommel Ryder MD L-LYSINE HCL TABS 08/30 LYSINE HCL TABS 87112694021 Rommel Ryder MD CELEXA 20 MG TABS 1 qd 10/17 CITALOPRAM HYDROBROMIDE 44392916912 Rommel Ryder MD SYMBICORT 160-4.5 MCG/ACT AERO 10/17 BUDESONIDE-FORMOTER OL FUMARATE 98055235414 Rommel Ryder MD PROVENTIL HFA 108 (90 Base) MCG/ACT INHALATION AEROSOL SOLUTION 08/05 ALBUTEROL SULFATE 64229611199 Rommel Ryder MD SYMBICORT 160-4.5 MCG/ACT AERO 10/17 BUDESONIDE-FORMOTER OL FUMARATE 09815763377 Rommel Ryder MD SINGULAIR 10 MG TABS 08/05 MONTELUKAST SODIUM 39216763799 Rommel Ryder MD ZANAFLEX 2 MG ORAL CAPSULE 1 q hs 12/09 TIZANIDINE HCL 76876807304 Rommel Ryder MD ZANAFLEX 4 MG ORAL CAPSULE 1 qhs 12/09 TIZANIDINE HCL 82367344367 Rommel Ryder MD ZANAFLEX 6 MG ORAL CAPSULE 1 @ hs 12/09 TIZANIDINE HCL 52547035355 Rommel Ryder MD KETOROLAC TROMETHAMINE 10 MG TABS 1 po q6h prn migraine not to take longer than 4 days 05/19 KETOROLAC TROMETHAMINE 81566422809 Rommel Ryder MD DEPAKOTE ER 500 MG [id number] 1000 mg PO Q HS 10/14 DIVALPROEX SODIUM 12330571226 Rommel Ryder MD LEVOTHYROXINE SODIUM 125 MCG TABS 07/26 LEVOTHYROXINE SODIUM 85247537579 Rommel Ryder MD GABAPENTIN 300 MG CAPS 300 mg PO TID 05/06 GABAPENTIN 37423115941 Rommel Ryder MD MORPHINE SULFATE 15 MG TABS 15 mg po TID PRN for pain. Do not use more than 2 days per week. 10/14 MORPHINE SULFATE 27100868019 Rommel Ryder MD VENTOLIN HFA AERS 12/09 ALBUTEROL SULFATE AERS 72296324974 Phyllis Wong RN, MS, [employer]OR, [employer] SPECIALIST SYMBICORT AERO 12/09 BUDESONIDE-FORMOTER OL FUMARATE AERO 29545744964 Phyllis Wong RN, MS, [employer]ATION TAILOR, [employer] SPECIALIST CELEXA 20 MG TABS 1 qd 10/17 CITALOPRAM HYDROBROMIDE 79887428243 Phyllis Wong RN, MS, [employer]ATION TAILOR, [employer] SPECIALIST SINGULAIR TABS 12/09 MONTELUKAST SODIUM TABS 26468315705 Phyllis Wong RN, MS, [employer]ATION TAILOR, [employer] SPECIALIST OMEPRAZOLE 20 MG CPDR 09/20 OMEPRAZOLE 11257275155 Phyllis Wong RN, MS, [employer]ATION TAILOR, [employer] SPECIALIST BUSPIRONE HCL 10 MG TABS 08/05 BUSPIRONE HCL 97243728366 Phyllis Wong RN, MS, [employer]ATION TAILOR, [employer] SPECIALIST ATIVAN 1 MG TABS 07/27 LORAZEPAM [id number] Phyllis Wong RN, MS, [employer]ATION TAILOR, [employer] SPECIALIST ZANAFLEX 6 MG ORAL CAPSULE 1 @ hs 12/09 TIZANIDINE HCL 04376102194 Phyllis Wong RN, MS, [employer] TAILOR, [employer] SPECIALIST ZANAFLEX 4 MG ORAL CAPSULE 1 qhs 12/09 TIZANIDINE HCL 33072213206 Phyllis Wong RN, MS, [employer]ATION TAILOR, [employer] SPECIALIST ZANAFLEX 2 MG ORAL CAPSULE 1 q hs 12/09 TIZANIDINE HCL 41094908556 Phyllis Wong RN, MS, [employer]ATION TAILOR, [employer] SPECIALIST POTASSIMIN TABLET 08/30 POTASSIUM TABS 81151915603 Phyllis Wong RN, MS, [employer] TAILOR, [employer] SPECIALIST CALCIUM TABLET 08/30 CALCIUM CARBONATE-VITAMIN D TABS 59571994494 Phyllis Wong RN, MS, [employer] TAILOR, [employer] SPECIALIST SLOW RELEASE IRON TABLET EXTENDED RELEASE 08/30 FERROUS SULFATE DRIED CR-TABS 44334748770 Phyllis Wong RN, MS, [employer] TAILOR, [employer] SPECIALIST BINA-TAB 500 MG TBEC for acne 07/26 ERYTHROMYCIN BASE 97608704041 Phyllis Wong RN, MS, [employer] TAILOR, [employer] SPECIALIST PROZAC 40 MG ORAL CAPSULE 80mg daily 04/09 FLUOXETINE HCL 97794937233 Phyllis Wong RN, MS, [employer] TAILOR, [employer] SPECIALIST IBUPROFEN 800 MG TABS 2x/day as needed 07/26 IBUPROFEN 88898825633 Pyhllis Wong RN, MS, [employer]ATION TAILOR, [employer] SPECIALIST KETOROLAC TROMETHAMINE 10 MG TABS 1 po q6h prn migraine not to take longer than 4 days 05/19 KETOROLAC TROMETHAMINE 72059896635 Aminah Alcala RN, [employer] SPECIALIST CYCLOBENZAPRINE HCL 10 MG TABS One pill at bedtime as needed for muscle spasm 10/04 CYCLOBENZAPRINE HCL 63907958258 Yaima Ledesma DNP,[employer]ILOR,[employer] SPECIALIST PROZAC 40 MG ORAL CAPSULE 80mg daily 04/09 FLUOXETINE HCL [id number] Yaima Ledesma DNP,[employer] TAILOR,[employer] SPECIALIST LORAZEPAM 1 MG TABS 3x/day 07/26 LORAZEPAM 99103089347 Vladimir Pa Jr, MD MORPHINE SULFATE 15 MG TABS 15 mg po TID PRN for pain. Do not use more than 2 days per week. 10/14 MORPHINE SULFATE 57656508091 Rommel Ryder MD DEPAKOTE ER 500 MG [id number] 1000 mg PO Q HS 10/14 DIVALPROEX SODIUM 63303235420 Rommel Ryder MD CYCLOBENZAPRINE HCL 10 MG TABS One pill at bedtime as needed for muscle spasm 10/04 CYCLOBENZAPRINE HCL 60811689990 Rommel Ryder MD CYCLOBENZAPRINE HCL 10 MG TABS Take one pill every evening 07/26 CYCLOBENZAPRINE HCL 71912818587 Rommel Ryder MD L-LYSINE HCL TABS 08/30 LYSINE HCL TABS 77899230056 Yaima Ledesma DNP,[employer]ATION TAILOR,[employer] SPECIALIST MAGNESIUM CAPSULE 08/30 MAGNESIUM OXIDE CAPS 94275446758 Yaima Ledesma DNP,[employer]ATION TAILOR,[employer] SPECIALIST POTASSIMIN TABLET 08/30 POTASSIUM TABS 27918691631 Yaima Ledesma DNP,[employer]ATION TAILOR,[employer] SPECIALIST B COMPLEX ORAL TABLET 08/30 B COMPLEX VITAMINS 24481517498 Yaima Ledesma DNP,[employer] AL[employer]ATION TAILOR,[employer] SPECIALIST VITAMIN D CAPS 4000u 08/30 CHOLECALCIFEROL CAPS 65019807700 Yaima Ledesma DNP,[employer]ATION TAILOR,[employer] SPECIALIST CALCIUM TABLET 08/30 CALCIUM CARBONATE-VITAMIN D TABS 58995770763 Yaima Ledesma DNP,[employer] AL[employer]ATION TAILOR,[employer] SPECIALIST DEPAKOTE ER 500 MG [id number] One pill daily 08/30 DIVALPROEX SODIUM 42755033307 Yaima Ledesma DNP,[employer]ATION TAILOR,[employer] SPECIALIST FERROUS SULFATE 324 MG TBEC 07/26 FERROUS SULFATE [id number] Yaima Ledesma DNP,[employer]ATION TAILOR,[employer] SPECIALIST SLOW RELEASE IRON TABLET EXTENDED RELEASE 08/30 FERROUS SULFATE DRIED CR-TABS [id number] Yaima Ledesma DNP,[employer]ATION TAILOR,[employer] SPECIALIST MULTIVITAMINS TABS 07/26 MULTIPLE VITAMIN [id number] Yaima Ledesma DNP,[employer]ATION TAILOR,[employer] SPECIALIST FERROUS SULFATE 324 MG TBEC 07/26 FERROUS SULFATE 49332073240 Yaima Ledesma DNP,[employer] AL[employer]ATION TAILOR,[employer] SPECIALIST BINA-TAB 500 MG TBEC for acne 07/26 ERYTHROMYCIN BASE 52941092173 [facility],[employer]ATION TAILOR,[employer] SPECIALIST LEVOTHROID 75 MCG TABS daily 07/26 LEVOTHYROXINE SODIUM 45794777294 Yaima Lozanoigel DNP,[employer]ATION TAILOR,[employer] SPECIALIST LORAZEPAM 1 MG TABS 3x/day 07/26 LORAZEPAM [id number] Yaima Lozanoigel DNP,[employer]ATION TAILOR,[employer] SPECIALIST PROZAC 40 MG ORAL CAPSULE daily 07/26 FLUOXETINE HCL 17815558791 [facility] DNP,[employer]ATION TAILOR,[employer] SPECIALIST IBUPROFEN 800 MG TABS 2x/day as needed 07/26 IBUPROFEN 38874702400 [facility] DNP,[employer] TAILOR,[employer] SPECIALIST MEDROL 4 MG TBPK Take as directed 03/17 METHYLPREDNISOLONE 82660111765 [facility] EDYTA,[employer] ALTERATION TAILOR,[employer] SPECIALIST ZOFRAN ODT 4 MG ORAL TABLET DISINTEGRATING 1 PO Q 6-8 hr prn nausea and vomiting with migraine 03/27 ONDANSETRON 33092393027 [facility] DNP,[employer]ATION TAILOR,[employer] SPECIALIST CYCLOBENZAPRINE HCL 10 MG TABS Take one pill every evening 07/26 CYCLOBENZAPRINE HCL 02972921227 [facility] EDYTA,[employer] ALTERATION TAILOR,[employer] SPECIALIST GABAPENTIN CAPS 900 mg PO BID and 600 mg PO in the afternoon. 05/06 GABAPENTIN CAPS 26878463513 Rommel Ryder MD GABAPENTIN CAPS 600 MG PO TID 03/25 GABAPENTIN CAPS 63856993399 Rommel Ryder MD MEDROL 4 MG TBPK Take as directed 03/17 METHYLPREDNISOLONE 52722319823 Rommel Ryder MD GABAPENTIN CAPS 300 MG PO TID 03/27 GABAPENTIN CAPS 07155414666 Rommel Ryder MD ZOFRAN ODT 4 MG ORAL TABLET DISINTEGRATING 1 PO Q 6-8 hr prn nausea and vomiting with migraine 03/27 ONDANSETRON 54731130884 Rommel Ryder MD GABAPENTIN CAPS 2 qhs 03/22 GABAPENTIN CAPS 68189050952 Dahlia Henry LPN VICODIN 5-500 MG TABS 1 to 2 tabs PO q 6 hours PRN for headache 12/08 HYDROCODONE-ACETAMI NOPHEN 01152047726 Dahlia Henry LPN ZONEGRAN 100 MG CAPS 200 mg AM - 300 mg HS 01/20 ZONISAMIDE 52102429664 Dahlia Henry LPN GABAPENTIN CAPS 300 MG PO Q HS x 1 WEEK, 300 MG PO BID x 1 WEEK, 300 MG PO TID 09/20 GABAPENTIN CAPS 00165072411 Rommel Ryder MD ZONEGRAN 100 MG CAPS 200 mg AM - 300 mg HS 06/25 ZONISAMIDE 14113608096 Rommel DUMONT ODT 4 MG ORAL TABLET DISINTEGRATING 1 po qw6-8hr prn nausea and vomiting with migraine 12/08 ONDANSETRON 13082405761 Aminah Alcala RN, [employer] SPECIALIST MORPHINE SULFATE 15 MG TABS 15 mg po TID PRN for pain 12/08 MORPHINE SULFATE 03839463865 Aminah Alcala RN, [employer] SPECIALIST ZONEGRAN 100 MG CAPS 300mg am- 200mg pm 12/08 ZONISAMIDE 94735966683 Aminah Alcala RN, [employer] SPECIALIST ZONEGRAN 100 MG CAPS 200 mg PO BID 06/25 ZONISAMIDE 41086177444 Rommel Ryder MD VICODIN 5-500 MG TABS 1 to 2 tabs PO q 6 hours PRN for headache 12/08 HYDROCODONE-ACETAMI NOPHEN 11694962210 Rommel Ryder MD ZONEGRAN 100 MG CAPS 100 MG PO QHS x 1 week, 100 MG PO BID x 1 week, 100 mg PO Q AM and 200 mg PO Q HS x 1 week, 200 mg PO BID 11/23 ZONISAMIDE 71443183247 Rommel Ryder MD TOPAMAX 25 MG TABS 25 MG PO BID X 1 WEEK then 50 MG PO BID 10/28 TOPIRAMATE 53063962178 Rommel Ryder MD TOPAMAX 25 MG TABS 25 MG PO BID X 1 WEEK then 50 MG PO BID 10/28 TOPIRAMATE 44479980940 Rommel Ryder MD VIOXX TABS 25 MG 1 QD PRN 07/05 ROFECOXIB 42085034803 Rommel Ryder MD SOMA 350 MG TABS 1 Q HS PRN 0 07/05 CARISOPRODOL 99481296179 Rommel Ryder MD VIOXX TABS 25 MG 1 QD PRN 07/05 ROFECOXIB 84676850537 Valerio Zee MD SOMA 350 MG TABS 1 Q HS PRN 07/05 CARISOPRODOL 64422665069 Valerio Zee MD Medications Administered No information [...] PREDNISONE Critical No Longer Active Rasmita Paz [employer] TAILOR [employer]IST VICODIN Unknown No Longer Active Rommel Ryder MD VICODIN Severe No Longer Active Phyllis Wong RN, MS, [employer] TAILOR, [employer] SPECIALIST PREDNISONE Critical No Longer Active Rommel Ryder MD VICODIN Critical No Longer Active Aminah Alcala RN, [employer] SPECIALIST TETRACYCLINE Critical No Longer Active Rommel Ryder [...] for D IVALPROEX EXTENDED RELEASE 500MG T [facility] [id number] `DIVALPROEX EXTENDED RELEASE 500MG T`500`ME`60 Tablet`30`TYLER E 2 TABLETS BY MOUTH EVERY NIGHT AT BEDTIME``1`0` [id number]`2012 1021`[facility] [address]59*``[id number]`` B e-scripts messen manuel refill request Internal [...] Yes Consent To Release information to the [employer] ([employer]) Office Visit: MIRELA Follow Up 11/19/20 MAIL [...] Nerve Bloc k and Trigger Point Injections CPT-4495768 Occipital nerve bloc k (Greater ONB) bilateral CPT-98395 Trigger point inj (3+ musc) CPT-J1100 Dexamethasone -- 15 mg 02/16 ORDERS Occipital Nerve Bloc k and Trigger Point Injections ORDERS TSH ORDERS T4 Free Direct ORDERS Ammonia ORDERS Occipital Nerve Bloc k and Trigger Point Injections CPT-60923 Trigger point inj (3+ musc) CPT-4111555 Occipital nerve bloc k (Greater ONB) bilateral CPT-J1100 Dexamethasone -- 15 mg 11/24 ORDERS Follow up MIRELA ORDERS We will contact you with test results 202 03/21/08 [facility]-[id number] Documentation of current medicatio ns ORDERS Occipital Nerve Bloc k and Trigger Point Injections CPT-16660 Trigger point inj (3+ musc) CPT-1222199 Occipital nerve bloc k (Greater ONB) bilateral CPT-J1100 Dexamethasone -- 10 mg 08/06 [id number] Consult CPT-97034 Trigger point inj (3+ musc) CPT-9436298 Occipital nerve bloc k (Greater ONB) bilateral CPT-J1100 Dexamethasone - 4 mg ORDERS Occipital Nerve Bloc k and Trigger Point Injections CPT-67711 Trigger point inj (3+ musc) CPT-5771816 Occipital nerve bloc k (Greater ONB) bilateral CPT-J1100 Dexamethasone -- 10 mg 11/11 ORDERS Dysport Injection ORDERS Occipital Nerve Bloc k and Trigger Point Injections ORDERS Occipital Nerve Bloc k and Trigger Point Injections CPT-24231 Trigger point inj (3+ musc) CPT-7855122 Occipital nerve bloc k (Greater ONB) bilateral ORDERS Migraine Infusion Or gregoria Set #1: Depacon/Solu-Medrol/Toradol CPT-J1100 Dexamethasone - 8mg CPT-89762 Trigger point inj (3+ musc) CPT-0447265 Occipital nerve bloc k (Greater ONB) bilateral ORDERS Occipital Nerve Bloc k and Trigger Point Injections ORDERS Follow up ORDERS Migraine Infusion Or gregoria Set #1: Depacon/Solu-Medrol/Toradol CPT-3806000 Occipital nerve block (Greater ONB) x2 20 02/05/25 CPT-49836 Trigger point inj (3+ musc) ORDERS Follow up CPT-43201 Trigger point inj (3+ musc) CPT-4853425 Occipital nerve block x2 202 0 CPT-J1100 Dexamethasone - 8mg ORDERS Follow up ORDERS Sleep Consult [id number] Other Referral CPT-H5797D Dysport 500u - 1 vial 04/08 CPT-79382 Chem - Face/Neck - Migraine or Headache 2 ORDERS Follow up ORDERS Patient Instructions CPT-3698070 Occipital nerve block x2 201 11/19/22 CPT-86508 Trigger point inj (3+ musc) CPT-J1100 Dexamethasone [id number] Other Referral ORDERS Follow up CPT-[id number] Dysport 500u - 1 vial 0 10/30 CPT-38419 Chem - Face/Neck - Migraine or Headache 2 ORDERS Follow up ORDERS Patient Instructions CPT-69556 Trigger point inj (3+ musc) CPT-9966965 Occipital nerve block x2 201 11/17/00 CPT-J1100 Dexamethasone -- 15 mg 09/10 [id number] Documentation of current medicatio ns ORDERS Patient Instructions ORDERS Patient Instructions [id number] Other Referral ORDERS Follow up CPT-X2082I Dysport 500u - 1 vial 07/16 CPT-10293 Chem - Face/Neck - Migraine or Headache 2 ORDERS Follow up ORDERS Follow up ORDERS Instructions for Staff 06/06 CPT-0974024 Occipital nerve block x2 201 11/13/26 CPT-60847 Trigger point inj (1-2 musc) CPT-J1100 Dexamethasone -- 15 mg 06/06 CPT-N9248X Dysport 500u - 1 vial 2019/0 04/04 CPT-85747 Chem - Face/Neck - Migraine or Headache 2 CPT-S7071F Dysport 500u - 1 vial 03/24 CPT-47602 Chem - Face/Neck - Migraine or Headache 2 ORDERS Follow up ORDERS Follow up ORDERS Migraine Order Set # 1: Depacon/Solu-Medrol/Toradol [id number] Other Referral ORDERS Patient Instructions ORDERS Follow up [id number] Documentation of current medicatio ns ORDERS Patient Instructions ORDERS Follow up ORDERS Other Test CPT-R7352S Dysport 500u - 1 vial 201810/16 CPT-03760 Chem - Face/Neck - Migraine or Headache 2 SCT-[id number] Documentation of current medicatio ns ORDERS Patient Instructions [id number] Other Referral ORDERS Patient Instructions ORDERS Ferritin Serum [id number] Documentation of current medicatio ns SCT-[id number] Other Referral ORDERS Follow up SCT-[id number] Other Referral CPT-01211 PSG, 4+ parameters w / tech - 6yrs or older ([id number]) ORDERS Ammonia ORDERS Patient Instructions [id number] Other Referral SCT-[id number] Documentation of current medicatio ns ORDERS ALT (SGPT) ORDERS AST (SGOT) ORDERS CBC no Diff/ Platelet 07/27 ORDERS TSH ORDERS Vitamin B12 ORDERS Follow up CPT-O2438Q Dysport 500u - 1 vial 07/25 CPT-63465 Chem - Face/Neck - Migraine or Headache 2 ORDERS Follow up CPT-A7240T Dysport 500u - 1 vial 05/02 CPT-18859 Chem - Face/Neck - Migraine or Headache 2 CPT-W7646J Dysport 500u - 1 vial 04/09 CPT-72022 Chem - Face/Neck - Migraine or Headache 2 ORDERS Follow up ORDERS Follow up CPT-T5429W Dysport 500u - 1 vial 11/10 CPT-91215 Chem - Face/Neck - Migraine or Headache 2 ORDERS Migraine Order Set # 1: Depacon/Solu-Medrol/Toradol ORDERS Follow up CPT-61693 Brief emotional/behavioral assessment 201 09/17/06 CPT-G6793K Dysport 300u - 1 vial 03/15 CPT-69671 Chem - Face/Neck - Migraine or Headache 2 SCT-[id number] Documentation of current medicatio ns SCT-[id number] Documentation of current medicatio ns CPT-V2748B * Depacon 1000mg (enter units) CPT-J2930 * Solu-Medrol, 1000 mg / 1g (x8) CPT-J2405 * Zofran 1mg (enter units) 2 CPT-Y4012I * Toradol 60mg (enter units) CPT-F1862r * Normal Saline 200 cc 01/15 CPT-61015 IV infusion - Primar y Indication (16 min - 1 hr 30 min ) CPT-14005 Each add IVP of new drug/ Repeats if 30m apart/Each Add Tere Ind drug 15m or less CPT-J2930 * Solu-Medrol, 1000 mg / 1g (x8) CPT-T3419Q * Depacon 1000mg (enter units) CPT-J2405 * Zofran 1mg (enter units) 2 CPT-J1885 * Toradol 15mg (enter units) CPT-U2659d * Normal Saline 200 cc 10/04 CPT-57824 IV infusion - Primar y Indication (16 min - 1 hr 30 min ) CPT-11558 Each add IVP of new drug/ Repeats if 30m apart/Each Add Tere Ind drug 15m or less CPT-22394 MRI Cervical W/O CPT-90147 MRI Cervical W/O CPT-J2930 * Solu-Medrol, 1000 mg / 1g (x8) CPT-X7724W * Depacon 1000mg (enter units) CPT-J2405 * Zofran 1mg (enter units) 2 CPT-J1885 * Toradol 15mg (enter units) CPT-W4446X * Normal Saline 100 cc 02/07 CPT-47843 IV infusion - Primar y Indication (16 min - 1 hr 30 min ) CPT-16250 Each add IVP of new drug/ Repeats if 30m apart/Each Add Tere Ind drug 15m or less CPT-J2930 * Solu-Medrol, 1000 mg / 1g (x8) CPT-J2405 * Zofran 1mg (enter units) 2 CPT-J1885 * Toradol 15mg (enter units) CPT-E6261D * Normal Saline 100 cc 01/10 CPT-80663 IV infusion - Primar y Indication (16 min - 1 hr 30 min ) CPT-33298 Each add IVP of new drug/ Repeats if 30m apart/Each Add Tere Ind drug 15m or less CPT-23822 Multiple Sleep Latency Testing (95103) 20 01/19/26 CPT-55429 Polysomnography, 4+ parameters w/ tech (98739) CPT-J2930 * Solu-Medrol, 1000 mg / 1g (x8) CPT-L6443N * Normal Saline 100 cc 11/22 CPT-J2405 * Zofran 1mg (enter units) 2 CPT-W9527V * Depacon 500 mg CPT-46638 IV infusion - Primar y Indication (16 min - 1 hr 30 min ) CPT-40406 Each add IVP of new drug/ Repeats if 30m apart/Each Add Tere Ind drug 15m or less CPT-G8553 eRX Charge CPT-J2930 * Solu-Medrol, 1000 mg / 1g (x8) CPT-L8739A * Depacon 1000mg (enter units) CPT-J1885 * Toradol 15mg (enter units) CPT-U0551O * Normal Saline 100 cc 08/16 CPT-94905 IV infusion - Primar y Indication (16 min - 1 hr 30 min ) CPT-36928 Each add IVP of new drug/ Repeats if 30m apart/Each Add Tere Ind drug 15m or less CPT-K3813U * Depacon 500 mg CPT-J2930 * Solu-Medrol, 1000 mg / 1g (x8) CPT-J1885 * Toradol 15mg (enter units) CPT-J2405 * Zofran 1mg (enter units) 2 CPT-10026 IV infusion - Primar y Indication (16 min - 1 hr 30 min ) CPT-43568 Each add IVP of new drug/ Repeats if 30m apart/Each Add Tere Ind drug 15m or less CPT-56636 Each add IVP of new drug/ Repeats if 30m apart/Each Add Tere Ind drug 15m or less CPT-T7456J * Depacon 1000mg (enter units) CPT-J2930 * Solu-Medrol, 1000 mg / 1g (x8) CPT-T9182u * Normal Saline 200 cc 07/14 CPT-J2405 * Zofran 1mg (enter units) 2 CPT-J1885 * Toradol 15mg (enter units) CPT-28530 IV infusion - Primar y Indication (16 min - 1 hr 30 min ) CPT-77914 Infusion -- Tere Venita cation for 15 min or less/Single Push CPT-J2930 * Solu-Medrol, 1000 mg / 1g (x8) CPT-J4415W * Depacon 1000mg (enter units) CPT-J1885 * Toradol 15mg (enter units) CPT-W4257V * Normal Saline 100 cc 07/05 CPT-15735 IV infusion - Primar y Indication (16 min - 1 hr 30 min ) CPT-61326 Each add IVP of new drug/ Repeats if 30m apart/Each Add Tere Ind drug 15m or less CPT-J2930 * Solu-Medrol, 1000 mg / 1g (x8) CPT-W3174I * Depacon 1000mg (enter units) CPT-J2405 * Zofran 1mg (enter units) 2 CPT-J1885 * Toradol 15mg (enter units) CPT-X0992O * Normal Saline 100 cc (enter units) 2010 CPT-31956 Infusion -- Tere Venita cation for 15 min or less/Single Push CPT-90679 Each add IVP of new drug/ Repeats if 30m apart/Each Add Tere Ind drug 15m or less CPT-J2930 * Solu-Medrol, 1000 mg / 1g (x8) CPT-B7558S * Depacon 1000mg (enter units) CPT-J1885 * Toradol 15mg (enter units) CPT-F4645Z * Normal Saline 100 cc 04/26 CPT-58772 IV infusion - Primar y Indication (16 min - 1 hr 30 min ) CPT-27703 Infusion -- Tere Venita cation for 15 min or less ONLY/Single Push ONLY CPT-29989 IV Infusion - Each A ddtl Tere Indication Med (16 min or more) - (enter units) CPT-J2930 * Solu-Medrol, 1000 mg / 1g (x8) CPT-L0026E * Depacon 1000mg (enter units) CPT-J2405 * Zofran 1mg (enter units) 2 CPT-J1885 * Toradol 15mg (enter units) CPT-I9314B * Normal Saline 100 cc 03/24 CPT-28559 Infusion -- Tere Venita cation for 15 min or less ONLY/Single Push ONLY CPT-63010 IV infusion - Primar y Indication (16 min - 1 hr 30 min ) CPT-31855 IV Infusion - Each A ddtl Tere Indication Med (16 min or more) - (enter units) CPT-J1100 Dexamethasone -- 10 mg 03/11 CPT-3912757 Occipital nerve block x2 201 CPT-J1100 Dexamethasone - 4 mg CPT-8305657 Occipital nerve block x2 201 CPT-J1100 Dexamethasone - 4 mg CPT-5852102 Occipital nerve block x2 201 CPT-J2930 * Solu-Medrol, 1000 mg / 1g (x8) CPT-Y5009E * Depacon 1000mg (enter units) CPT-J2405 * Zofran 1mg (enter units) 2 CPT-J1885 * Toradol 15mg (enter units) CPT-F8884M * Normal Saline 100 cc 12/04 CPT-56524 IV infusion - Primar y Indication (16 min - 1 hr 30 min ) CPT-02000 Each add IVP of new drug/ Repeats if 30m apart/Each Add Tere Ind drug 15m or less CPT-J2930 * Solu-Medrol, 1000 mg / 1g (x8) CPT-I7261B * Depacon 1000mg (enter units) CPT-90941 IV infusion - Primar y Indication (16 min - 1 hr 30 min ) CPT-21258 IV Infusion - Each A ddtl Tere Indication Med (16 min or more) - (enter units) CPT-K9683M * Normal Saline 200 cc 11/10 CPT-J2405 * Zofran 1mg (enter units) 2 CPT-J1885 * Toradol 15mg (enter units) CPT-49712 MRI Brain (With & Without Contrast) 11/05 A9579 ProHance Pedrito-based MR Contrast, 20 ml via l CPT-J2930 * Solu-Medrol, 1000 mg / 1g (x8) CPT-G0951U * Depacon 1000mg (enter units) CPT-J1885 * Toradol 15mg (enter units) CPT-U0392V * Normal Saline 100 cc 10/28 CPT-53165 Each add IVP of new drug/ Repeats if 30m apart/Each Add Tere Ind drug 15m or less CPT-15031 IV infusion - Primar y Indication (16 [...]
[2024-12-03 02:52] VITALS: BP 124/79; PULSE 75; RESP 18; TEMP 36.7; O2SAT 99; BMI 27.4
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
--- OUTSIDE RECORDS SUMMARY | 2024-12-03 03:31 | XMS_ITS | Clinical Summary ---
Author Organization [facility] Address [address] , [address] [place] [address] Phone Care Team Providers Care Line Walker Name Role Phone [facility] Unavailable Unava ilable Conditions or Problems Problem Name Problem Code Onset Date Status Entry Date Provider Comment Standard Description Annotate Tremor 37068558 (SNOMED CT) 04/05 Active 04/05 Yaima Ledesma DNP,PUBLIC WELFARE DIRECTOR,CN P Tremor Occipital neuralgia, bilateral M54.81 (ICD-10-CM) 11/11 Active 11/11 Yaima Ledesma DNP,PUBLIC WELFARE DIRECTOR,CN P Occipital neuralgia Cervical spasm 56624912 (SNOMED CT) 11/11 Active 11/11 Yaima Ledesma DNP,PUBLIC WELFARE DIRECTOR,CN P Muscle spasm of head and/or neck 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 (ICD-10-CM) 07/30 Active 07/30 Vladimir Pa Jr, MD Circadian rhythm sleep disorder, delayed sleep phase type Parasomnia 29265584 (SNOMED CT) 11/09 Active 11/15 Rasmita Jackson PUBLIC WELFARE DIRECTOR DATA OPERATIONS DIRECTOR Parasomnia Neck pain, chronic 115943309829 7 (SNOMED CT) 09/14 Active 09/14 Rasmita Paz PUBLIC WELFARE DIRECTOR DATA OPERATIONS DIRECTOR Chronic neck pain Periodic limb movement disorder (PSG 2018: severe; 47/hr) 528766998 (SNOMED CT) 08/01 Active 08/02 Vladimir Pa Jr, MD Periodic limb movement disorder Obstructive sleep apnea (PSG 2018: mild; AHI 6; RDI 7; roz 83%) 08132575 (SNOMED CT) 08/01 Active 08/02 Vladimir Pa Jr, MD Obstructive sleep apnea syndrome Insomnia 408484455 (SNOMED CT) 07/27 Active 07/27 Vladimir Pa Jr, MD Insomnia Hypersomnia (ESS 17; NL MSLT 2010 [facility]) 91683698 (SNOMED CT) 07/27 Active 07/27 Vladimir Pa Jr, MD Hypersomnia NECK PAIN 21389861 (SNOMED CT) 04/09 Resolved 04/09 Rommel Ryder MD Neck pain SPASM OF MUSCLE 29220847 (SNOMED CT) 07/26 Resolved 07/27 Rommel Ryder MD Spasm CELIAC DISEASE 556369431 (SNOMED CT) Resolved Rommel Ryder MD Celiac disease FACIAL WEAKNESS 43672013 (SNOMED CT) 11/03 Resolved 11/03 Rommel Ryder MD Weakness of face muscles ANEMIA 124306877 (SNOMED CT) Resolved Rommel Ryder MD Anemia LUMBAR STRAIN 678229216 (SNOMED CT) 06/24 Resolved 06/24 Rommel Ryder MD Low back strain CERVICAL STRAIN 216277680 (SNOMED CT) 06/24 Resolved 06/24 Rommel Ryder MD Strain of neck muscle HEADACHE 51129389 (SNOMED CT) 10/28 Resolved 10/28 Rommel Ryder MD Headache FATIGUE (NL MSLT) 780.79 (ICD-9-CM) 12/06 Resolved 12/06 Rommel Ryder MD Other malaise and fatigue CHRONIC MIGRAINE W/O AURA W/O INTRACTABLE W/O SM G43.709 (ICD-10-CM) Active Phyllis oWng RN, MS, PUBLIC WELFARE DIRECTOR, DATA OPERATIONS DIRECTOR Chronic migraine without aura, not intractable, without status migrainosus ANEMIA 099916132 (SNOMED CT) Removed Phyllis Wong RN, MS, PUBLIC WELFARE DIRECTOR, DATA OPERATIONS DIRECTOR Anemia CELIAC DISEASE 098298785 (SNOMED CT) Removed Phyllis Wong RN, MS, PUBLIC WELFARE DIRECTOR, DATA OPERATIONS DIRECTOR Celiac disease NECK PAIN 69233105 (SNOMED CT) 04/09 Removed 04/09 Yaima Ledesma DNP,PUBLIC WELFARE DIRECTOR,CN P Neck pain FATIGUE (NL MSLT) 780.79 (ICD-9-CM) 12/06 Removed 12/06 Vladimir Pa Jr, MD Other malaise and fatigue HYPERSOMNIA 21049364 (SNOMED CT) 09/03 Resolved 09/03 Vladimir Pa Jr, MD Hypersomnia SLEEP DISTURBANCE, NOS 98244545 (SNOMED CT) 08/30 Resolved 08/30 Vladimir Pa Jr, MD Dyssomnia HYPERSOMNIA 77649222 (SNOMED CT) 09/03 Removed 09/03 Vladimir Pa Jr, MD Hypersomnia SNORING 72382484 (SNOMED CT) 09/03 Active 09/03 Vladimir Pa Jr, MD Snoring SLEEP DISTURBANCE, NOS 88100588 (SNOMED CT) 08/30 Removed 08/30 Yaima Ledesma DNP,PUBLIC WELFARE DIRECTOR,CN P Dyssomnia SPASM OF MUSCLE 71828980 (SNOMED CT) 07/26 Removed 07/27 Yaima Ledesma DNP,PUBLIC WELFARE DIRECTOR,CN P Spasm HEADACHE 39887383 (SNOMED CT) 10/28 Removed 10/28 Rommel Ryder MD Headache FACIAL WEAKNESS 63684445 (SNOMED CT) 11/03 Removed 11/03 Carson Luther MD Weakness of face muscles LUMBAR STRAIN 502299101 (SNOMED CT) 06/24 Removed 06/24 Valerio Zee MD Low back strain CERVICAL STRAIN 924372718 (SNOMED CT) 06/24 Removed 06/24 Valerio Zee MD Strain of neck muscle Medications Medication Instructions Start Date Stop Date Generic Name NDC Provider DIVALPROEX SODIUM ER 500 MG [id number] Take 1 tablet by mouth every night 08/05 divalproex [id number] Nay Tan PA-C DIVALPROEX SODIUM ER 500 MG [id number] TAKE 1 TABLET BY MOUTH AT BEDTIME *APPOINTMENT NEEDED* 10/05 divalproex 20611865499 Nay Tan PA-C NURTEC 75 MG TBDP Take 1 tab by mouth (place on or under tongue) at migraine onset. Maximum dose: 1 tab/24 hrs rimegepant 12474865835 Nay Tan PA-C TIZANIDINE HCL 2 MG TABS Take 1 tablet by mouth every eight hours as needed 04/01 tizanidine 43555847386 Rommel Ryder MD FLUOXETINE HCL 40 MG CAPS Take 2 capsule by mouth every morning 07/21 fluoxetine 81170580443 Rommel Ryder MD WIXELA INHUB 100-50 MCG/ACT AEPB Use 1 by mouth twice a day 11/04 fluticasone propion-salmeterol 95861604736 Rommel Ryder MD OMEPRAZOLE 20 MG CPDR omeprazole 83054468592 Nay Tan PA-C MELATONIN TABLET 3 mg every night 08/09 MELATONIN TABLET Nay Tan PA-C MONTELUKAST SODIUM 10 MG TABS Take 1 tablet by mouth every night 11/11 montelukast 02597915740 Rommel Ryder MD LEVOTHYROXINE SODIUM 125 MCG TABS 07/26 levothyroxine 72994891710 Rommel Ryder MD GABAPENTIN 300 MG CAPS 900 mg by mouth three times a day 05/06 gabapentin 22056605706 Rommel Ryder MD DIVALPROEX SODIUM ER 500 MG [id number] Take 1 tablet by mouth every night 08/05 divalproex 98742252705 Dahlia Henry LPN AJOVY 225 MG/1.5ML SOAJ Inject 1 pen injector subcutaneously once a month 11/19 [facility] 23728654899 Nay Tan PA-C DIVALPROEX SODIUM ER 500 MG [id number] TAKE 1 TABLET BY MOUTH AT BEDTIME 08/05 DIVALPROEX SODIUM 97923612349 Rommel Ryder MD EMGALITY 120 MG/ML SOAJ 240 mg on first month then 120 mg Q month 08/05 [facility] 27559118065 Rommel Ryder MD DEPAKOTE ER 500 MG [id number] 500 mg Q HS 10/05 DIVALPROEX SODIUM 05825913271 Rommel Ryder MD GABAPENTIN 300 MG CAPS 900 mg PO TID 05/06 GABAPENTIN 75815093391 Rommel Ryder MD BELSOMRA 20 MG TABS 1 orally QHS at 11:45pm for 12am bedtime 07/30 SUVOREXANT [id number] Rommel Ryder MD MULTIVITAMINS TABS 07/26 MULTIPLE VITAMIN 80535899168 Rommel Ryder MD B COMPLEX ORAL TABLET 08/30 B COMPLEX VITAMINS 82292035711 Rommel Ryder MD PROVENTIL HFA 108 (90 BASE) MCG/ACT INHALATION AEROSOL SOLUTION 08/05 ALBUTEROL SULFATE 60939170696 Rommel Ryder MD BUSPIRONE HCL 10 MG TABS 08/05 BUSPIRONE HCL 53826176681 Rommel Ryder MD VITAMIN D CAPS 4000u 08/30 CHOLECALCIFEROL CAPS 43818432706 Rommel Ryder MD SINGULAIR 10 MG TABS 08/05 MONTELUKAST SODIUM 72552094084 Rommel Ryder MD FLUOXETINE HCL 20 MG CAPS 05/19 FLUOXETINE HCL 28894245524 Rommel Ryder MD MONTELUKAST SODIUM 10 MG TABS TK 1 T PO QHS 11/11 MONTELUKAST SODIUM 51842807636 Rommel Ryder MD FLUOXETINE HCL 40 MG CAPS TK 2 CS PO QAM 07/21 FLUOXETINE HCL 46698749805 Rommel Ryder MD WIXELA INHUB 100-50 MCG/ACT AEPB USE 1 INHALATION BY MOUTH TWICE DAILY 11/04 FLUTICASONE-SALMETE ROL 35895016726 Rommel Ryder MD TIZANIDINE HCL 2 MG TABS TAKE 1 TABLET BY MOUTH EVERY 8 HOURS NEEDED 04/01 TIZANIDINE HCL 28067466174 Rommel Ryder MD MEDROL 4 MG TBPK 1 dose pack to be taken according to instructions on package. 04/03 METHYLPREDNISOLONE 57285424772 Pamela Paz APRN, CNP BELSOMRA 20 MG TABS 1 orally QHS at 11:45pm for 12am bedtime 07/30 SUVOREXANT [id number] Vladimir Pa Jr, MD BELSOMRA 15 MG TABS 1 orally QHS at 11:45pm for 12am bedtime (free 10 tab trial) 07/30 SUVOREXANT [id number] Vladimir Pa Jr, MD BELSOMRA 20 MG TABS 1 orally QHS at 11:45pm for 12am bedtime (free 10 tab trial) 07/30 SUVOREXANT [id number] Vladimir Pa Jr, MD BELSOMRA 15 MG TABS 1 orally QHS at 11:45pm for 12am bedtime (free 10 tab trial) 07/30 SUVOREXANT [id number] Vladimir Pa Jr, MD TIZANIDINE HCL 2 MG TABS 07/16 TIZANIDINE HCL 21906601088 Vladimir Pa Jr, MD LORAZEPAM 1 MG TABS TAKE 1 TABLET BY MOUTH TWICE A DAY 05/10 LORAZEPAM 11690489051 Vladimir Pa Jr, MD MELATONIN TABLET 3mg at 9 pm 08/09 MELATONIN TABS 07906790821 Pamela Paz APRN DATA OPERATIONS DIRECTOR NORTREL 0.5/0.75/1-35 MG-MCG TABS 07/26 NORETHIN-ETH ESTRAD TRIPHASIC 99958703727 Pamela Paz PUBLIC WELFARE DIRECTOR DATA OPERATIONS DIRECTOR ATIVAN 1 MG TABS 07/27 LORAZEPAM 61284625869 Vladimir Pa Jr, MD DEPAKOTE ER 500 MG [id number] 500 mg HS 10/17 DIVALPROEX SODIUM 23876911401 Vladimir Pa Jr, MD DIVALPROEX SODIUM 500 MG TBEC TAKE 1 TABLET BY MOUTH AT BEDTIME. 10/05 DIVALPROEX SODIUM 83050794540 Vladimir Pa Jr, MD LORAZEPAM 1 MG TABS TAKE 1 TABLET BY MOUTH TWICE A DAY 05/10 LORAZEPAM 35213892880 Vladimir Pa Jr, MD TIZANIDINE HCL 2 MG TABS 07/16 TIZANIDINE HCL 10577807295 Vladimir Pa Jr, MD FLUOXETINE HCL 20 MG CAPS 05/19 FLUOXETINE HCL 90400701078 Vladimir Pa Jr, MD NORTREL 0.5/0.75/1-35 MG-MCG TABS 07/26 NORETHIN-ETH ESTRAD TRIPHASIC 79281526720 Vladimir Pa Jr, MD SPIRONOLACTONE 50 MG TABS 10/17 SPIRONOLACTONE 20424086922 Vladimir Pa Jr, MD SPIRONOLACTONE 50 MG TABS 10/17 SPIRONOLACTONE 63597683228 Rommel Ryder MD DEPAKOTE ER 500 MG [id number] 500 mg HS 10/17 DIVALPROEX SODIUM 45378638665 Rommel Ryder MD MAGNESIUM CAPSULE 08/30 MAGNESIUM OXIDE CAPS 70580056355 Rommel Ryder MD L-LYSINE HCL TABS 08/30 LYSINE HCL TABS 31566408719 Rommel Ryder MD CELEXA 20 MG TABS 1 qd 10/17 CITALOPRAM HYDROBROMIDE 09501736348 Rommel Ryder MD SYMBICORT 160-4.5 MCG/ACT AERO 10/17 BUDESONIDE-FORMOTER OL FUMARATE 15258675202 Rommel Ryder MD PROVENTIL HFA 108 (90 Base) MCG/ACT INHALATION AEROSOL SOLUTION 08/05 ALBUTEROL SULFATE 05527491579 Rommel Ryder MD SYMBICORT 160-4.5 MCG/ACT AERO 10/17 BUDESONIDE-FORMOTER OL FUMARATE 14505363361 Rommel Ryder MD SINGULAIR 10 MG TABS 08/05 MONTELUKAST SODIUM 74064155515 Rommel Ryder MD ZANAFLEX 2 MG ORAL CAPSULE 1 q hs 12/09 TIZANIDINE HCL 91458934081 Rommel Ryder MD ZANAFLEX 4 MG ORAL CAPSULE 1 qhs 12/09 TIZANIDINE HCL 39632205196 Rommel Ryder MD ZANAFLEX 6 MG ORAL CAPSULE 1 @ hs 12/09 TIZANIDINE HCL 77522451199 Rommel Ryder MD KETOROLAC TROMETHAMINE 10 MG TABS 1 po q6h prn migraine not to take longer than 4 days 05/19 KETOROLAC TROMETHAMINE 09956606544 Rommel Ryder MD DEPAKOTE ER 500 MG [id number] 1000 mg PO Q HS 10/14 DIVALPROEX SODIUM 51347738353 Rommel Ryder MD LEVOTHYROXINE SODIUM 125 MCG TABS 07/26 LEVOTHYROXINE SODIUM 12050303474 Rommel Ryder MD GABAPENTIN 300 MG CAPS 300 mg PO TID 05/06 GABAPENTIN 45950050017 Rommel Ryder MD MORPHINE SULFATE 15 MG TABS 15 mg po TID PRN for pain. Do not use more than 2 days per week. 10/14 MORPHINE SULFATE 67519004713 Rommel Ryder MD VENTOLIN HFA AERS 12/09 ALBUTEROL SULFATE AERS 69317339646 Phyllis Wong RN, MS, PUBLIC WELFARE DIRECTOR, DATA OPERATIONS DIRECTOR SYMBICORT AERO 12/09 BUDESONIDE-FORMOTER OL FUMARATE AERO 54309509976 Phyllis Wong RN, MS, PUBLIC WELFARE DIRECTOR, DATA OPERATIONS DIRECTOR CELEXA 20 MG TABS 1 qd 10/17 CITALOPRAM HYDROBROMIDE 56939068881 Phyllis Wong RN, MS, PUBLIC WELFARE DIRECTOR, DATA OPERATIONS DIRECTOR SINGULAIR TABS 12/09 MONTELUKAST SODIUM TABS 57145289290 Phyllis Wong RN, MS, PUBLIC WELFARE DIRECTOR, DATA OPERATIONS DIRECTOR OMEPRAZOLE 20 MG CPDR 09/20 OMEPRAZOLE 12587072306 Phyllis Wong RN, MS, PUBLIC WELFARE DIRECTOR, DATA OPERATIONS DIRECTOR BUSPIRONE HCL 10 MG TABS 08/05 BUSPIRONE HCL 57876902454 Phyllis Wong RN, MS, PUBLIC WELFARE DIRECTOR, DATA OPERATIONS DIRECTOR ATIVAN 1 MG TABS 07/27 LORAZEPAM [id number] Phyllis Wong RN, MS, PUBLIC WELFARE DIRECTOR, DATA OPERATIONS DIRECTOR ZANAFLEX 6 MG ORAL CAPSULE 1 @ hs 12/09 TIZANIDINE HCL 87493107550 Phyllis Wong RN, MS, PUBLIC WELFARE DIRECTOR, DATA OPERATIONS DIRECTOR ZANAFLEX 4 MG ORAL CAPSULE 1 qhs 12/09 TIZANIDINE HCL 17617905454 Phyllis Wong RN, MS, PUBLIC WELFARE DIRECTOR, DATA OPERATIONS DIRECTOR ZANAFLEX 2 MG ORAL CAPSULE 1 q hs 12/09 TIZANIDINE HCL 73260446750 Phyllis Wong RN, MS, PUBLIC WELFARE DIRECTOR, DATA OPERATIONS DIRECTOR POTASSIMIN TABLET 08/30 POTASSIUM TABS 58122741575 Phyllis Wong RN, MS, PUBLIC WELFARE DIRECTOR, DATA OPERATIONS DIRECTOR CALCIUM TABLET 08/30 CALCIUM CARBONATE-VITAMIN D TABS 34701049995 Phyllis Wong RN, MS, PUBLIC WELFARE DIRECTOR, DATA OPERATIONS DIRECTOR SLOW RELEASE IRON TABLET EXTENDED RELEASE 08/30 FERROUS SULFATE DRIED CR-TABS 61023751897 Phyllis Wong RN, MS, PUBLIC WELFARE DIRECTOR, DATA OPERATIONS DIRECTOR BINA-TAB 500 MG TBEC for acne 07/26 ERYTHROMYCIN BASE 42422386939 Phyllis Wong RN, MS, PUBLIC WELFARE DIRECTOR, DATA OPERATIONS DIRECTOR PROZAC 40 MG ORAL CAPSULE 80mg daily 04/09 FLUOXETINE HCL 55931989289 Phyllis Wong RN, MS, PUBLIC WELFARE DIRECTOR, DATA OPERATIONS DIRECTOR IBUPROFEN 800 MG TABS 2x/day as needed 07/26 IBUPROFEN 41877150255 Phyllis Wong RN, MS, PUBLIC WELFARE DIRECTOR, DATA OPERATIONS DIRECTOR KETOROLAC TROMETHAMINE 10 MG TABS 1 po q6h prn migraine not to take longer than 4 days 05/19 KETOROLAC TROMETHAMINE 66641289603 Aminah Alcala RN, DATA OPERATIONS DIRECTOR CYCLOBENZAPRINE HCL 10 MG TABS One pill at bedtime as needed for muscle spasm 10/04 CYCLOBENZAPRINE HCL 34400856163 Yaima Ledesma DNP,PUBLIC WELFARE DIRECTOR,DATA OPERATIONS DIRECTOR PROZAC 40 MG ORAL CAPSULE 80mg daily 04/09 FLUOXETINE HCL [id number] Yaima Ledesma DNP,PUBLIC WELFARE DIRECTOR,DATA OPERATIONS DIRECTOR LORAZEPAM 1 MG TABS 3x/day 07/26 LORAZEPAM [id number] Vladimir Pa Jr, MD MORPHINE SULFATE 15 MG TABS 15 mg po TID PRN for pain. Do not use more than 2 days per week. 10/14 MORPHINE SULFATE 38328767421 Rommel Ryder MD DEPAKOTE ER 500 MG [id number] 1000 mg PO Q HS 10/14 DIVALPROEX SODIUM 06859447685 Rommel Ryder MD CYCLOBENZAPRINE HCL 10 MG TABS One pill at bedtime as needed for muscle spasm 10/04 CYCLOBENZAPRINE HCL 24216160214 Rommel Ryder MD CYCLOBENZAPRINE HCL 10 MG TABS Take one pill every evening 07/26 CYCLOBENZAPRINE HCL 95793760715 Rommel Ryder MD L-LYSINE HCL TABS 08/30 LYSINE HCL TABS [id number] Yaima Ledesma DNP,PUBLIC WELFARE DIRECTOR,DATA OPERATIONS DIRECTOR MAGNESIUM CAPSULE 08/30 MAGNESIUM OXIDE CAPS [id number] Yaima Ledesma DNP,PUBLIC WELFARE DIRECTOR,DATA OPERATIONS DIRECTOR POTASSIMIN TABLET 08/30 POTASSIUM TABS [id number] Yaima Ledesma DNP,PUBLIC WELFARE DIRECTOR,DATA OPERATIONS DIRECTOR B COMPLEX ORAL TABLET 08/30 B COMPLEX VITAMINS [id number] Yaima Ledesma DNP,PUBLIC WELFARE DIRECTOR,DATA OPERATIONS DIRECTOR VITAMIN D CAPS 4000u 08/30 CHOLECALCIFEROL CAPS [id number] Yaima Ledesma DNP,PUBLIC WELFARE DIRECTOR,DATA OPERATIONS DIRECTOR CALCIUM TABLET 08/30 CALCIUM CARBONATE-VITAMIN D TABS [id number] Yaima Ledesma DNP,PUBLIC WELFARE DIRECTOR,DATA OPERATIONS DIRECTOR DEPAKOTE ER 500 MG [id number] One pill daily 08/30 DIVALPROEX SODIUM 95494017581 Yaima Ledesma DNP,PUBLIC WELFARE DIRECTOR,DATA OPERATIONS DIRECTOR FERROUS SULFATE 324 MG TBEC 07/26 FERROUS SULFATE [id number] Yaima Ledesma DNP,PUBLIC WELFARE DIRECTOR,DATA OPERATIONS DIRECTOR SLOW RELEASE IRON TABLET EXTENDED RELEASE 08/30 FERROUS SULFATE DRIED CR-TABS [id number] Yaima Ledesma DNP,PUBLIC WELFARE DIRECTOR,DATA OPERATIONS DIRECTOR MULTIVITAMINS TABS 07/26 MULTIPLE VITAMIN 81502993052 Yaima Ledesma DNP,PUBLIC WELFARE DIRECTOR,DATA OPERATIONS DIRECTOR FERROUS SULFATE 324 MG TBEC 07/26 FERROUS SULFATE [id number] Yaima Ledesma DNP,PUBLIC WELFARE DIRECTOR,DATA OPERATIONS DIRECTOR BINA-TAB 500 MG TBEC for acne 07/26 ERYTHROMYCIN BASE [id number] [facility] DNP,PUBLIC WELFARE DIRECTOR,DATA OPERATIONS DIRECTOR LEVOTHROID 75 MCG TABS daily 07/26 LEVOTHYROXINE SODIUM [id number] Yaima Lozanoigel DNP,PUBLIC WELFARE DIRECTOR,DATA OPERATIONS DIRECTOR LORAZEPAM 1 MG TABS 3x/day 07/26 LORAZEPAM [id number] Yaima Lozanoigel DNP,PUBLIC WELFARE DIRECTOR,DATA OPERATIONS DIRECTOR PROZAC 40 MG ORAL CAPSULE daily 07/26 FLUOXETINE HCL [id number] [facility] DNP,PUBLIC WELFARE DIRECTOR,DATA OPERATIONS DIRECTOR IBUPROFEN 800 MG TABS 2x/day as needed 07/26 IBUPROFEN [id number] [facility] DNP,PUBLIC WELFARE DIRECTOR,DATA OPERATIONS DIRECTOR MEDROL 4 MG TBPK Take as directed 03/17 METHYLPREDNISOLONE 29098345634 [facility] EDYTA,PUBLIC WELFARE DIRECTOR,DATA OPERATIONS DIRECTOR ZOFRAN ODT 4 MG ORAL TABLET DISINTEGRATING 1 PO Q 6-8 hr prn nausea and vomiting with migraine 03/27 ONDANSETRON [id number] [facility] DNP,PUBLIC WELFARE DIRECTOR,DATA OPERATIONS DIRECTOR CYCLOBENZAPRINE HCL 10 MG TABS Take one pill every evening 07/26 CYCLOBENZAPRINE HCL 06492879117 [facility] EDYTA,PUBLIC WELFARE DIRECTOR,DATA OPERATIONS DIRECTOR GABAPENTIN CAPS 900 mg PO BID and 600 mg PO in the afternoon. 05/06 GABAPENTIN CAPS 77591887513 Rommel Ryder MD GABAPENTIN CAPS 600 MG PO TID 03/25 GABAPENTIN CAPS 86715933188 Rommel Ryder MD MEDROL 4 MG TBPK Take as directed 03/17 METHYLPREDNISOLONE 82779557735 Rommel Ryder MD GABAPENTIN CAPS 300 MG PO TID 03/27 GABAPENTIN CAPS 98158861047 Rommel Ryder MD ZOFRAN ODT 4 MG ORAL TABLET DISINTEGRATING 1 PO Q 6-8 hr prn nausea and vomiting with migraine 03/27 ONDANSETRON 36247850864 Rommel Ryder MD GABAPENTIN CAPS 2 qhs 03/22 GABAPENTIN CAPS 01430136935 Dahlia Henry LPN VICODIN 5-500 MG TABS 1 to 2 tabs PO q 6 hours PRN for headache 12/08 HYDROCODONE-ACETAMI NOPHEN 59942704847 Dahlia Henry LPN ZONEGRAN 100 MG CAPS 200 mg AM - 300 mg HS 01/20 ZONISAMIDE 27733719406 Dahlia Henry LPN GABAPENTIN CAPS 300 MG PO Q HS x 1 WEEK, 300 MG PO BID x 1 WEEK, 300 MG PO TID 09/20 GABAPENTIN CAPS 04583407846 Rommel Ryder MD ZONEGRAN 100 MG CAPS 200 mg AM - 300 mg HS 06/25 ZONISAMIDE 89552576889 Rommel DUMONT ODT 4 MG ORAL TABLET DISINTEGRATING 1 po qw6-8hr prn nausea and vomiting with migraine 12/08 ONDANSETRON [id number] Aminah Alcala RN, DATA OPERATIONS DIRECTOR MORPHINE SULFATE 15 MG TABS 15 mg po TID PRN for pain 12/08 MORPHINE SULFATE 42073505435 Aminah Alcala RN, DATA OPERATIONS DIRECTOR ZONEGRAN 100 MG CAPS 300mg am- 200mg pm 12/08 ZONISAMIDE 21182215327 Aminah Alcala RN, DATA OPERATIONS DIRECTOR ZONEGRAN 100 MG CAPS 200 mg PO BID 06/25 ZONISAMIDE 58670964960 Rommel Ryder MD VICODIN 5-500 MG TABS 1 to 2 tabs PO q 6 hours PRN for headache 12/08 HYDROCODONE-ACETAMI NOPHEN 94381579814 Rommel Ryder MD ZONEGRAN 100 MG CAPS 100 MG PO QHS x 1 week, 100 MG PO BID x 1 week, 100 mg PO Q AM and 200 mg PO Q HS x 1 week, 200 mg PO BID 11/23 ZONISAMIDE 50712056219 Rommel Ryder MD TOPAMAX 25 MG TABS 25 MG PO BID X 1 WEEK then 50 MG PO BID 10/28 TOPIRAMATE 81406712306 Rommel Ryder MD TOPAMAX 25 MG TABS 25 MG PO BID X 1 WEEK then 50 MG PO BID 10/28 TOPIRAMATE 69899864796 Rommel Ryder MD VIOXX TABS 25 MG 1 QD PRN 07/05 ROFECOXIB 23998329550 Rommel Ryder MD SOMA 350 MG TABS 1 Q HS PRN 0 07/05 CARISOPRODOL 04777391203 Rommel Ryder MD VIOXX TABS 25 MG 1 QD PRN 07/05 ROFECOXIB [id number] Valerio Zee MD SOMA 350 MG TABS 1 Q HS PRN 07/05 CARISOPRODOL 36041672325 Valerio Zee MD Medications Administered No information [...] PREDNISONE Critical No Longer Active Rasmita Paz PUBLIC WELFARE DIRECTOR DATA OPERATIONS DIRECTOR VICODIN Unknown No Longer Active Rommel Ryder MD VICODIN Severe No Longer Active Phyllis Wong RN, MS, PUBLIC WELFARE DIRECTOR, DATA OPERATIONS DIRECTOR PREDNISONE Critical No Longer Active Rommel Ryder MD VICODIN Critical No Longer Active Aminah Alcala RN, DATA OPERATIONS DIRECTOR TETRACYCLINE Critical No Longer Active Rommel Ryder [...] for D IVALPROEX EXTENDED RELEASE 500MG T [facility]_RR [id number] `DIVALPROEX EXTENDED RELEASE 500MG T`500`ME`60 Tablet`30`TYLER E 2 TABLETS BY MOUTH EVERY NIGHT AT BEDTIME``1`0` [id number]`2012 1021`[facility] [employer] [address]*``[id number]`` B e-scripts messen manuel refill request Internal [...] Yes Consent To Release information to the [employer] ([employer]) Office Visit: MIRELA Follow Up 11/19/20 MAIL [...] Nerve Bloc k and Trigger Point Injections CPT-6160842 Occipital nerve bloc k (Greater ONB) bilateral CPT-35945 Trigger point inj (3+ musc) CPT-J1100 Dexamethasone -- 15 mg 02/16 ORDERS Occipital Nerve Bloc k and Trigger Point Injections ORDERS TSH ORDERS T4 Free Direct ORDERS Ammonia ORDERS Occipital Nerve Bloc k and Trigger Point Injections CPT-91972 Trigger point inj (3+ musc) CPT-1101529 Occipital nerve bloc k (Greater ONB) bilateral CPT-J1100 Dexamethasone -- 15 mg 11/24 ORDERS Follow up MIRELA ORDERS We will contact you with test results 202 03/21/08 [facility]-[id number] Documentation of current medicatio ns ORDERS Occipital Nerve Bloc k and Trigger Point Injections CPT-49451 Trigger point inj (3+ musc) CPT-3255299 Occipital nerve bloc k (Greater ONB) bilateral CPT-J1100 Dexamethasone -- 10 mg 08/06 [id number] Consult CPT-44858 Trigger point inj (3+ musc) CPT-7416406 Occipital nerve bloc k (Greater ONB) bilateral CPT-J1100 Dexamethasone - 4 mg ORDERS Occipital Nerve Bloc k and Trigger Point Injections CPT-39038 Trigger point inj (3+ musc) CPT-7487701 Occipital nerve bloc k (Greater ONB) bilateral CPT-J1100 Dexamethasone -- 10 mg 11/11 ORDERS Dysport Injection ORDERS Occipital Nerve Bloc k and Trigger Point Injections ORDERS Occipital Nerve Bloc k and Trigger Point Injections CPT-43878 Trigger point inj (3+ musc) CPT-3206294 Occipital nerve bloc k (Greater ONB) bilateral ORDERS Migraine Infusion Or gregoria Set #1: Depacon/Solu-Medrol/Toradol CPT-J1100 Dexamethasone - 8mg CPT-10985 Trigger point inj (3+ musc) CPT-0180473 Occipital nerve bloc k (Greater ONB) bilateral ORDERS Occipital Nerve Bloc k and Trigger Point Injections ORDERS Follow up ORDERS Migraine Infusion Or gregoria Set #1: Depacon/Solu-Medrol/Toradol CPT-4017477 Occipital nerve block (Greater ONB) x2 20 02/05/25 CPT-84293 Trigger point inj (3+ musc) ORDERS Follow up CPT-27202 Trigger point inj (3+ musc) CPT-8670365 Occipital nerve block x2 202 0 CPT-J1100 Dexamethasone - 8mg ORDERS Follow up ORDERS Sleep Consult [id number] Other Referral CPT-I1669T Dysport 500u - 1 vial 04/08 CPT-02902 Chem - Face/Neck - Migraine or Headache 2 ORDERS Follow up ORDERS Patient Instructions CPT-7723867 Occipital nerve block x2 201 11/19/22 CPT-49477 Trigger point inj (3+ musc) CPT-J1100 Dexamethasone SCT-[id number] Other Referral ORDERS Follow up CPT-N7105X Dysport 500u - 1 vial 0 10/30 CPT-78244 Chem - Face/Neck - Migraine or Headache 2 ORDERS Follow up ORDERS Patient Instructions CPT-75412 Trigger point inj (3+ musc) CPT-0842008 Occipital nerve block x2 201 11/17/00 CPT-J1100 Dexamethasone -- 15 mg 09/10 [facility]-[id number] Documentation of current medicatio ns ORDERS Patient Instructions ORDERS Patient Instructions [id number] Other Referral ORDERS Follow up CPT-E0428N Dysport 500u - 1 vial 07/16 CPT-83734 Chem - Face/Neck - Migraine or Headache 2 ORDERS Follow up ORDERS Follow up ORDERS Instructions for Staff 06/06 CPT-2496418 Occipital nerve block x2 201 11/13/26 CPT-39777 Trigger point inj (1-2 musc) CPT-J1100 Dexamethasone -- 15 mg 06/06 CPT-Y4199R Dysport 500u - 1 vial 2019/0 04/04 CPT-72183 Chem - Face/Neck - Migraine or Headache 2 CPT-A0816J Dysport 500u - 1 vial 03/24 CPT-17755 Chem - Face/Neck - Migraine or Headache 2 ORDERS Follow up ORDERS Follow up ORDERS Migraine Order Set # 1: Depacon/Solu-Medrol/Toradol [id number] Other Referral ORDERS Patient Instructions ORDERS Follow up SCT-[id number] Documentation of current medicatio ns ORDERS Patient Instructions ORDERS Follow up ORDERS Other Test CPT-N7600C Dysport 500u - 1 vial 201810/16 CPT-17350 Chem - Face/Neck - Migraine or Headache 2 SCT-[id number] Documentation of current medicatio ns ORDERS Patient Instructions SCT-[id number] Other Referral ORDERS Patient Instructions ORDERS Ferritin Serum SCT-[id number] Documentation of current medicatio ns SCT-[id number] Other Referral ORDERS Follow up SCT-[id number] Other Referral CPT-78691 PSG, 4+ parameters w / tech - 6yrs or older (51721) ORDERS Ammonia ORDERS Patient Instructions SCT-[id number] Other Referral SCT-[id number] Documentation of current medicatio ns ORDERS ALT (SGPT) ORDERS AST (SGOT) ORDERS CBC no Diff/ Platelet 07/27 ORDERS TSH ORDERS Vitamin B12 ORDERS Follow up CPT-[id number] Dysport 500u - 1 vial 07/25 CPT-13015 Chem - Face/Neck - Migraine or Headache 2 ORDERS Follow up CPT-B2756P Dysport 500u - 1 vial 05/02 CPT-89249 Chem - Face/Neck - Migraine or Headache 2 CPT-W4791H Dysport 500u - 1 vial 04/09 CPT-08784 Chem - Face/Neck - Migraine or Headache 2 ORDERS Follow up ORDERS Follow up CPT-F4680T Dysport 500u - 1 vial 11/10 CPT-76728 Chem - Face/Neck - Migraine or Headache 2 ORDERS Migraine Order Set # 1: Depacon/Solu-Medrol/Toradol ORDERS Follow up CPT-20370 Brief emotional/behavioral assessment 201 09/17/06 CPT-T0056V Dysport 300u - 1 vial 03/15 CPT-75219 Chem - Face/Neck - Migraine or Headache 2 [id number] Documentation of current medicatio ns [id number] Documentation of current medicatio ns CPT-S2854R * Depacon 1000mg (enter units) CPT-J2930 * Solu-Medrol, 1000 mg / 1g (x8) CPT-J2405 * Zofran 1mg (enter units) 2 CPT-Z7137I * Toradol 60mg (enter units) CPT-P3247o * Normal Saline 200 cc 01/15 CPT-60565 IV infusion - Primar y Indication (16 min - 1 hr 30 min ) CPT-25616 Each add IVP of new drug/ Repeats if 30m apart/Each Add Tere Ind drug 15m or less CPT-J2930 * Solu-Medrol, 1000 mg / 1g (x8) CPT-F6330Y * Depacon 1000mg (enter units) CPT-J2405 * Zofran 1mg (enter units) 2 CPT-J1885 * Toradol 15mg (enter units) CPT-Z7156k * Normal Saline 200 cc 10/04 CPT-72956 IV infusion - Primar y Indication (16 min - 1 hr 30 min ) CPT-12312 Each add IVP of new drug/ Repeats if 30m apart/Each Add Tere Ind drug 15m or less CPT-76709 MRI Cervical W/O CPT-50638 MRI Cervical W/O CPT-J2930 * Solu-Medrol, 1000 mg / 1g (x8) CPT-I8350M * Depacon 1000mg (enter units) CPT-J2405 * Zofran 1mg (enter units) 2 CPT-J1885 * Toradol 15mg (enter units) CPT-O2577L * Normal Saline 100 cc 02/07 CPT-29311 IV infusion - Primar y Indication (16 min - 1 hr 30 min ) CPT-67981 Each add IVP of new drug/ Repeats if 30m apart/Each Add Tere Ind drug 15m or less CPT-J2930 * Solu-Medrol, 1000 mg / 1g (x8) CPT-J2405 * Zofran 1mg (enter units) 2 CPT-J1885 * Toradol 15mg (enter units) CPT-I1188W * Normal Saline 100 cc 01/10 CPT-99293 IV infusion - Primar y Indication (16 min - 1 hr 30 min ) CPT-83266 Each add IVP of new drug/ Repeats if 30m apart/Each Add Tere Ind drug 15m or less CPT-03843 Multiple Sleep Latency Testing (81622) 20 01/19/26 CPT-48943 Polysomnography, 4+ parameters w/ tech (88221) CPT-J2930 * Solu-Medrol, 1000 mg / 1g (x8) CPT-S5193V * Normal Saline 100 cc 11/22 CPT-J2405 * Zofran 1mg (enter units) 2 CPT-W2349V * Depacon 500 mg CPT-57604 IV infusion - Primar y Indication (16 min - 1 hr 30 min ) CPT-13901 Each add IVP of new drug/ Repeats if 30m apart/Each Add Tere Ind drug 15m or less CPT-G8553 eRX Charge CPT-J2930 * Solu-Medrol, 1000 mg / 1g (x8) CPT-X5558K * Depacon 1000mg (enter units) CPT-J1885 * Toradol 15mg (enter units) CPT-O2996V * Normal Saline 100 cc 08/16 CPT-49068 IV infusion - Primar y Indication (16 min - 1 hr 30 min ) CPT-04617 Each add IVP of new drug/ Repeats if 30m apart/Each Add Tere Ind drug 15m or less CPT-W8852X * Depacon 500 mg CPT-J2930 * Solu-Medrol, 1000 mg / 1g (x8) CPT-J1885 * Toradol 15mg (enter units) CPT-J2405 * Zofran 1mg (enter units) 2 CPT-86080 IV infusion - Primar y Indication (16 min - 1 hr 30 min ) CPT-69563 Each add IVP of new drug/ Repeats if 30m apart/Each Add Tere Ind drug 15m or less CPT-33334 Each add IVP of new drug/ Repeats if 30m apart/Each Add Tere Ind drug 15m or less CPT-T4403O * Depacon 1000mg (enter units) CPT-J2930 * Solu-Medrol, 1000 mg / 1g (x8) CPT-A2464a * Normal Saline 200 cc 07/14 CPT-J2405 * Zofran 1mg (enter units) 2 CPT-J1885 * Toradol 15mg (enter units) CPT-07136 IV infusion - Primar y Indication (16 min - 1 hr 30 min ) CPT-32543 Infusion -- Tere Venita cation for 15 min or less/Single Push CPT-J2930 * Solu-Medrol, 1000 mg / 1g (x8) CPT-S3873T * Depacon 1000mg (enter units) CPT-J1885 * Toradol 15mg (enter units) CPT-K5832C * Normal Saline 100 cc 07/05 CPT-13816 IV infusion - Primar y Indication (16 min - 1 hr 30 min ) CPT-15260 Each add IVP of new drug/ Repeats if 30m apart/Each Add Tere Ind drug 15m or less CPT-J2930 * Solu-Medrol, 1000 mg / 1g (x8) CPT-T2175F * Depacon 1000mg (enter units) CPT-J2405 * Zofran 1mg (enter units) 2 CPT-J1885 * Toradol 15mg (enter units) CPT-D8344A * Normal Saline 100 cc (enter units) 2010 CPT-21695 Infusion -- Tere Venita cation for 15 min or less/Single Push CPT-47052 Each add IVP of new drug/ Repeats if 30m apart/Each Add Tere Ind drug 15m or less CPT-J2930 * Solu-Medrol, 1000 mg / 1g (x8) CPT-A3817Z * Depacon 1000mg (enter units) CPT-J1885 * Toradol 15mg (enter units) CPT-E0015S * Normal Saline 100 cc 04/26 CPT-40577 IV infusion - Primar y Indication (16 min - 1 hr 30 min ) CPT-64810 Infusion -- Tere Venita cation for 15 min or less ONLY/Single Push ONLY CPT-10866 IV Infusion - Each A ddtl Tere Indication Med (16 min or more) - (enter units) CPT-J2930 * Solu-Medrol, 1000 mg / 1g (x8) CPT-X4537G * Depacon 1000mg (enter units) CPT-J2405 * Zofran 1mg (enter units) 2 CPT-J1885 * Toradol 15mg (enter units) CPT-G0767Y * Normal Saline 100 cc 03/24 CPT-91451 Infusion -- Tere Venita cation for 15 min or less ONLY/Single Push ONLY CPT-05744 IV infusion - Primar y Indication (16 min - 1 hr 30 min ) CPT-68883 IV Infusion - Each A ddtl Tere Indication Med (16 min or more) - (enter units) CPT-J1100 Dexamethasone -- 10 mg 03/11 CPT-7205399 Occipital nerve block x2 201 CPT-J1100 Dexamethasone - 4 mg CPT-4689719 Occipital nerve block x2 201 CPT-J1100 Dexamethasone - 4 mg CPT-7941761 Occipital nerve block x2 201 CPT-J2930 * Solu-Medrol, 1000 mg / 1g (x8) CPT-Z6074V * Depacon 1000mg (enter units) CPT-J2405 * Zofran 1mg (enter units) 2 CPT-J1885 * Toradol 15mg (enter units) CPT-X2754B * Normal Saline 100 cc 12/04 CPT-41822 IV infusion - Primar y Indication (16 min - 1 hr 30 min ) CPT-19387 Each add IVP of new drug/ Repeats if 30m apart/Each Add Tere Ind drug 15m or less CPT-J2930 * Solu-Medrol, 1000 mg / 1g (x8) CPT-W3809W * Depacon 1000mg (enter units) CPT-46496 IV infusion - Primar y Indication (16 min - 1 hr 30 min ) CPT-78337 IV Infusion - Each A ddtl Tere Indication Med (16 min or more) - (enter units) CPT-Q8940S * Normal Saline 200 cc 11/10 CPT-J2405 * Zofran 1mg (enter units) 2 CPT-J1885 * Toradol 15mg (enter units) CPT-14554 MRI Brain (With & Without Contrast) 11/05 A9579 ProHance Pedrito-based MR Contrast, 20 ml via l CPT-J2930 * Solu-Medrol, 1000 mg / 1g (x8) CPT-P5883G * Depacon 1000mg (enter units) CPT-J1885 * Toradol 15mg (enter units) CPT-T6683H * Normal Saline 100 cc 10/28 CPT-61793 Each add IVP of new drug/ Repeats if 30m apart/Each Add Tere Ind drug 15m or less CPT-16977 IV infusion - Primar y Indication (16 [...]
[2024-12-03 04:42] VITALS: BP 121/74; PULSE 70; RESP 18; TEMP 36.7; O2SAT 99
[2024-12-03 04:45] VITALS: BP 121/74; PULSE 70; RESP 18; TEMP 36.7
== END 2024-12-03 04:46 | disposition home or self-care (01) ==
PROVIDERS: Emergency Provider Family Medicine; PCP Family Medicine
DX: S63.501A Unspecified sprain of right wrist, initial encounter (principal); W22.09XA Striking against other stationary object, initial encounter
CPT/HCPCS: 29125; 73090; 73130; 99283; 99284

== ENCOUNTER 2024-12-25 16:50 | Outpatient (CLI) | payer OTHER, MEDICARE, SELFPAY | END 2024-12-25 16:51 | disposition home or self-care (01) | LOC: AMB 12-27 01:02 | PROVIDERS: PCP Family Medicine; Visit Provider Emergency Medicine Emergency Medical Services | DX: F29 Unspecified psychosis not due to a substance or known physiological condition (principal) | CPT/HCPCS: A0425; A0427 ==

== ENCOUNTER 2024-12-25 17:14 | Emergency (ER) | payer MEDICARE, OTHER, SELFPAY ==
--- OUTSIDE RECORDS SUMMARY | 2011-10-24 06:41 | XMS_ITS | Continuity of Care Document ---
Author Organization [facility] [place] Address [address] [place] [address] Phone Care Team Providers Care Network Contractor Name Role Phone Panchito Jones MD Unavailable Unavailable Advance Directives Directive Yes / No Effective Date File Name No Information Encounters Encounter Description Practice Location Reason(s) For Visit Diagnoses Date Provider Providers Copied on Encounter COURT [place], [address] [facility] [address], [place], [place], [id number], [place] tel:[phone] [facility] No Information Karen Flanagan. [address] [facility] [address], [place], [address], [place]. tel:[phone] Referring Provider: Rommel Ryder MD, [address] [facility] [address], [place], [address]. tel:[phone] Family History Family Member Type Diagnosis Age [...]
--- OUTSIDE RECORDS SUMMARY | 2011-10-24 06:41 | XMS_ITS | Continuity of Care Document ---
Author Organization [facility] [place] Address [address] [place] [address] Phone Care Team Providers Care Feed Mill Lab Technician Name Role Phone Panchito Jones MD Unavailable Unavailable Advance Directives Directive Yes / No Effective Date File Name No Information Encounters Encounter Description Practice Location Reason(s) For Visit Diagnoses Date Provider Providers Copied on Encounter COURT [place], [address] [facility] [address], [place], [place], [address], [place] tel:[phone] [facility] No Information Karen Flanagan. [address] [facility] [address], [place], [address], [place]. tel:[phone] Referring Provider: Rommel Ryder MD, [address] [facility] [address], [address]. tel:[phone] Family History Family Member Type Diagnosis Age [...]
--- OUTSIDE RECORDS SUMMARY | 2024-12-25 17:16 | XMS_ITS | Clinical Summary ---
Author Organization [facility] Address [address] , [address] [place] [address] Phone Care Team Providers Care Finish Saw Operator Name Role Phone [facility] Unavailable Unava ilable Conditions or Problems Problem Name Problem Code Onset Date Status Entry Date Provider Comment Standard Description Annotate Tremor 07192839 (SNOMED CT) 04/05 Active 04/05 Yaima Ledesma DNP,DEPARTMENT STORE SALESPERSON,CN P Tremor Occipital neuralgia, bilateral M54.81 (ICD-10-CM) 11/11 Active 11/11 Yaima Ledesma DNP,DEPARTMENT STORE SALESPERSON,CN P Occipital neuralgia Cervical spasm 16197946 (SNOMED CT) 11/11 Active 11/11 Yaima Nicolle Ledesma DNP,DEPARTMENT STORE SALESPERSON,CN P Muscle spasm of head and/or neck 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 (ICD-10-CM) 07/30 Active 07/30 Vladimir Pa Jr, MD Circadian rhythm sleep disorder, delayed sleep phase type Parasomnia 23110970 (SNOMED CT) 11/09 Active 11/15 Rasmita Jackson DEPARTMENT STORE SALESPERSON SALES REPRESENTATIVE SALES MANAGER Parasomnia Neck pain, chronic 613850684316 7 (SNOMED CT) 09/14 Active 09/14 Rasmita Paz DEPARTMENT STORE SALESPERSON SALES REPRESENTATIVE SALES MANAGER Chronic neck pain Periodic limb movement disorder (PSG 2018: severe; 47/hr) 819611822 (SNOMED CT) 08/01 Active 08/02 Vladimir Pa Jr, MD Periodic limb movement disorder Obstructive sleep apnea (PSG 2018: mild; AHI 6; RDI 7; roz 83%) 46971232 (SNOMED CT) 08/01 Active 08/02 Vladimir Pa Jr, MD Obstructive sleep apnea syndrome Insomnia 520598354 (SNOMED CT) 07/27 Active 07/27 Vladimir Pa Jr, MD Insomnia Hypersomnia (ESS 17; NL MSLT 2010 [facility]) 69108100 (SNOMED CT) 07/27 Active 07/27 Vladimir Pa Jr, MD Hypersomnia NECK PAIN 32667975 (SNOMED CT) 04/09 Resolved 04/09 Rommel Ryder MD Neck pain SPASM OF MUSCLE 10233586 (SNOMED CT) 07/26 Resolved 07/27 Rommel Ryder MD Spasm CELIAC DISEASE 287999549 (SNOMED CT) Resolved Rommel Ryder MD Celiac disease FACIAL WEAKNESS 06351153 (SNOMED CT) 11/03 Resolved 11/03 Rommel Ryder MD Weakness of face muscles ANEMIA 174338777 (SNOMED CT) Resolved Rommel Ryder MD Anemia LUMBAR STRAIN 441962860 (SNOMED CT) 06/24 Resolved 06/24 Rommel Ryder MD Low back strain CERVICAL STRAIN 765466058 (SNOMED CT) 06/24 Resolved 06/24 Rommel Ryder MD Strain of neck muscle HEADACHE 94733712 (SNOMED CT) 10/28 Resolved 10/28 Rommel Ryder MD Headache FATIGUE (NL MSLT) 780.79 (ICD-9-CM) 12/06 Resolved 12/06 Rommel Ryder MD Other malaise and fatigue CHRONIC MIGRAINE W/O AURA W/O INTRACTABLE W/O SM G43.709 (ICD-10-CM) Active Phyllis Wong RN, MS, DEPARTMENT STORE SALESPERSON, SALES REPRESENTATIVE SALES MANAGER Chronic migraine without aura, not intractable, without status migrainosus ANEMIA 492665823 (SNOMED CT) Removed Phyllis Wong RN, MS, DEPARTMENT STORE SALESPERSON, SALES REPRESENTATIVE SALES MANAGER Anemia CELIAC DISEASE 916718983 (SNOMED CT) Removed Phyllis Wong RN, MS, DEPARTMENT STORE SALESPERSON, SALES REPRESENTATIVE SALES MANAGER Celiac disease NECK PAIN 73576408 (SNOMED CT) 04/09 Removed 04/09 Yaima Ledesma DNP,DEPARTMENT STORE SALESPERSON,CN P Neck pain FATIGUE (NL MSLT) 780.79 (ICD-9-CM) 12/06 Removed 12/06 Vladimir Pa Jr, MD Other malaise and fatigue HYPERSOMNIA 88678105 (SNOMED CT) 09/03 Resolved 09/03 Vladimir Pa Jr, MD Hypersomnia SLEEP DISTURBANCE, NOS 81424055 (SNOMED CT) 08/30 Resolved 08/30 Vladimir Pa Jr, MD Dyssomnia HYPERSOMNIA 64803581 (SNOMED CT) 09/03 Removed 09/03 Vladimir Pa Jr, MD Hypersomnia SNORING 20567164 (SNOMED CT) 09/03 Active 09/03 Vladimir Pa Jr, MD Snoring SLEEP DISTURBANCE, NOS 62906182 (SNOMED CT) 08/30 Removed 08/30 Yaima Ledesma DNP,DEPARTMENT STORE SALESPERSON,CN P Dyssomnia SPASM OF MUSCLE 69096678 (SNOMED CT) 07/26 Removed 07/27 Yaima Ledesma DNP,DEPARTMENT STORE SALESPERSON,CN P Spasm HEADACHE 35926992 (SNOMED CT) 10/28 Removed 10/28 Rommel Ryder MD Headache FACIAL WEAKNESS 12176404 (SNOMED CT) 11/03 Removed 11/03 Carson Luther MD Weakness of face muscles LUMBAR STRAIN 289368837 (SNOMED CT) 06/24 Removed 06/24 Valerio Zee MD Low back strain CERVICAL STRAIN 272643706 (SNOMED CT) 06/24 Removed 06/24 Valerio Zee MD Strain of neck muscle Medications Medication Instructions Start Date Stop Date Generic Name NDC Provider DIVALPROEX SODIUM ER 500 MG [id number] Take 1 tablet by mouth every night 08/05 divalproex [id number] Nay Tan PA-C DIVALPROEX SODIUM ER 500 MG [id number] TAKE 1 TABLET BY MOUTH AT BEDTIME *APPOINTMENT NEEDED* 10/05 divalproex 68293894155 Nay Tan PA-C NURTEC 75 MG TBDP Take 1 tab by mouth (place on or under tongue) at migraine onset. Maximum dose: 1 tab/24 hrs rimegepant 28297863397 Nay Tan PA-C TIZANIDINE HCL 2 MG TABS Take 1 tablet by mouth every eight hours as needed 04/01 tizanidine 82452596202 Rommel Ryder MD FLUOXETINE HCL 40 MG CAPS Take 2 capsule by mouth every morning 07/21 fluoxetine 91703080627 Rommel Ryder MD WIXELA INHUB 100-50 MCG/ACT AEPB Use 1 by mouth twice a day 11/04 fluticasone propion-salmeterol 63585849566 Rommel Ryder MD OMEPRAZOLE 20 MG CPDR omeprazole 70208564368 Nay Tan PA-C MELATONIN TABLET 3 mg every night 08/09 MELATONIN TABLET Nay Tan PA-C MONTELUKAST SODIUM 10 MG TABS Take 1 tablet by mouth every night 11/11 montelukast 57363782365 Rommel Ryder MD LEVOTHYROXINE SODIUM 125 MCG TABS 07/26 levothyroxine 50120480072 Rommel Ryder MD GABAPENTIN 300 MG CAPS 900 mg by mouth three times a day 05/06 gabapentin 72541726430 Rommel Ryder MD DIVALPROEX SODIUM ER 500 MG [id number] Take 1 tablet by mouth every night 08/05 divalproex 34438944361 Dahlia Henry LPN AJOVY 225 MG/1.5ML SOAJ Inject 1 pen injector subcutaneously once a month 11/19 frepricilla-[facility] 84678150868 Nay Tan PA-C DIVALPROEX SODIUM ER 500 MG [id number] TAKE 1 TABLET BY MOUTH AT BEDTIME 08/05 DIVALPROEX SODIUM 42567736558 Rommel Ryder MD EMGALITY 120 MG/ML SOAJ 240 mg on first month then 120 mg Q month 08/05 [facility]ANEZUMAB[facility] 99659475238 Rommel Ryder MD DEPAKOTE ER 500 MG [id number] 500 mg Q HS 10/05 DIVALPROEX SODIUM 44358022325 Rommel Ryder MD GABAPENTIN 300 MG CAPS 900 mg PO TID 05/06 GABAPENTIN 20992736899 Rommel Ryder MD BELSOMRA 20 MG TABS 1 orally QHS at 11:45pm for 12am bedtime 07/30 SUVOREXANT 07002802896 Rommel Ryder MD MULTIVITAMINS TABS 07/26 MULTIPLE VITAMIN 32265940287 Rommel Ryder MD B COMPLEX ORAL TABLET 08/30 B COMPLEX VITAMINS 54753005035 Rommel Ryder MD PROVENTIL HFA 108 (90 BASE) MCG/ACT INHALATION AEROSOL SOLUTION 08/05 ALBUTEROL SULFATE 42654549744 Rommel Ryder MD BUSPIRONE HCL 10 MG TABS 08/05 BUSPIRONE HCL 16270893289 Rommel Ryder MD VITAMIN D CAPS 4000u 08/30 CHOLECALCIFEROL CAPS 21819963206 Rommel Ryder MD SINGULAIR 10 MG TABS 08/05 MONTELUKAST SODIUM 22106107589 Rommel Ryder MD FLUOXETINE HCL 20 MG CAPS 05/19 FLUOXETINE HCL 49757500621 Rommel Ryder MD MONTELUKAST SODIUM 10 MG TABS TK 1 T PO QHS 11/11 MONTELUKAST SODIUM 94968243211 Rommel Ryder MD FLUOXETINE HCL 40 MG CAPS TK 2 CS PO QAM 07/21 FLUOXETINE HCL 76967591628 Rommel Ryder MD WIXELA INHUB 100-50 MCG/ACT AEPB USE 1 INHALATION BY MOUTH TWICE DAILY 11/04 FLUTICASONE-SALMETE ROL 40420520617 Rommel Ryder MD TIZANIDINE HCL 2 MG TABS TAKE 1 TABLET BY MOUTH EVERY 8 HOURS NEEDED 04/01 TIZANIDINE HCL 42878934255 Rommel Ryder MD MEDROL 4 MG TBPK 1 dose pack to be taken according to instructions on package. 04/03 METHYLPREDNISOLONE 03336786797 Pamela Paz APRN, CNP BELSOMRA 20 MG TABS 1 orally QHS at 11:45pm for 12am bedtime 07/30 SUVOREXANT 48411802211 Vladimir Pa Jr, MD BELSOMRA 15 MG TABS 1 orally QHS at 11:45pm for 12am bedtime (free 10 tab trial) 07/30 SUVOREXANT [id number] Vladimir Pa Jr, MD BELSOMRA 20 MG TABS 1 orally QHS at 11:45pm for 12am bedtime (free 10 tab trial) 07/30 SUVOREXANT [id number] Vladimir Pa Jr, MD BELSOMRA 15 MG TABS 1 orally QHS at 11:45pm for 12am bedtime (free 10 tab trial) 07/30 SUVOREXANT [id number] Vladimir Pa Jr, MD TIZANIDINE HCL 2 MG TABS 07/16 TIZANIDINE HCL 77540205487 Vladimir Pa Jr, MD LORAZEPAM 1 MG TABS TAKE 1 TABLET BY MOUTH TWICE A DAY 05/10 LORAZEPAM 79320251054 Vladimir Pa Jr, MD MELATONIN TABLET 3mg at 9 pm 08/09 MELATONIN TABS 39874582209 Pamela Paz APRN SALES REPRESENTATIVE SALES MANAGER NORTREL 0.5/0.75/1-35 MG-MCG TABS 07/26 NORETHIN-ETH ESTRAD TRIPHASIC 65218076757 Pamela Paz DEPARTMENT STORE SALESPERSON SALES REPRESENTATIVE SALES MANAGER ATIVAN 1 MG TABS 07/27 LORAZEPAM 21605511617 Vladimir Pa Jr, MD DEPAKOTE ER 500 MG [id number] 500 mg HS 10/17 DIVALPROEX SODIUM 82706991917 Vladimir Pa Jr, MD DIVALPROEX SODIUM 500 MG TBEC TAKE 1 TABLET BY MOUTH AT BEDTIME. 10/05 DIVALPROEX SODIUM 94293364659 Vladimir Pa Jr, MD LORAZEPAM 1 MG TABS TAKE 1 TABLET BY MOUTH TWICE A DAY 05/10 LORAZEPAM 22599135757 Valdimir Pa Jr, MD TIZANIDINE HCL 2 MG TABS 07/16 TIZANIDINE HCL 85281886824 Vladimir Pa Jr, MD FLUOXETINE HCL 20 MG CAPS 05/19 FLUOXETINE HCL 79369094163 Vladimir Pa Jr, MD NORTREL 0.5/0.75/1-35 MG-MCG TABS 07/26 NORETHIN-ETH ESTRAD TRIPHASIC 37629469153 Vladimir Pa Jr, MD SPIRONOLACTONE 50 MG TABS 10/17 SPIRONOLACTONE 38519998366 Vladimir Pa Jr, MD SPIRONOLACTONE 50 MG TABS 10/17 SPIRONOLACTONE 90366106340 Rommel Ryder MD DEPAKOTE ER 500 MG [id number] 500 mg HS 10/17 DIVALPROEX SODIUM 99304440625 Rommel Ryder MD MAGNESIUM CAPSULE 08/30 MAGNESIUM OXIDE CAPS 06950759672 Rommel Ryder MD L-LYSINE HCL TABS 08/30 LYSINE HCL TABS 59089951653 Rommel Ryder MD CELEXA 20 MG TABS 1 qd 10/17 CITALOPRAM HYDROBROMIDE 59058326223 Rommel Ryder MD SYMBICORT 160-4.5 MCG/ACT AERO 10/17 BUDESONIDE-FORMOTER OL FUMARATE 09399743164 Rommel Ryder MD PROVENTIL HFA 108 (90 Base) MCG/ACT INHALATION AEROSOL SOLUTION 08/05 ALBUTEROL SULFATE 54374836456 Rommel Ryder MD SYMBICORT 160-4.5 MCG/ACT AERO 10/17 BUDESONIDE-FORMOTER OL FUMARATE 70795642090 Rommel Ryder MD SINGULAIR 10 MG TABS 08/05 MONTELUKAST SODIUM 20875496101 Rommel Ryder MD ZANAFLEX 2 MG ORAL CAPSULE 1 q hs 12/09 TIZANIDINE HCL [id number] Rommel Ryder MD ZANAFLEX 4 MG ORAL CAPSULE 1 qhs 12/09 TIZANIDINE HCL 38362620719 Rommel Ryder MD ZANAFLEX 6 MG ORAL CAPSULE 1 @ hs 12/09 TIZANIDINE HCL [id number] Rommel Ryder MD KETOROLAC TROMETHAMINE 10 MG TABS 1 po q6h prn migraine not to take longer than 4 days 05/19 KETOROLAC TROMETHAMINE 23307500365 Rommel Ryder MD DEPAKOTE ER 500 MG [id number] 1000 mg PO Q HS 10/14 DIVALPROEX SODIUM 66585198151 Rommel Ryder MD LEVOTHYROXINE SODIUM 125 MCG TABS 07/26 LEVOTHYROXINE SODIUM 11409809252 Rommel Ryder MD GABAPENTIN 300 MG CAPS 300 mg PO TID 05/06 GABAPENTIN 88084008261 Rommel Ryder MD MORPHINE SULFATE 15 MG TABS 15 mg po TID PRN for pain. Do not use more than 2 days per week. 10/14 MORPHINE SULFATE 40138066670 Rommel Ryder MD VENTOLIN HFA AERS 12/09 ALBUTEROL SULFATE AERS 27974569621 Phyllis Wong RN, MS, DEPARTMENT STORE SALESPERSON, SALES REPRESENTATIVE SALES MANAGER SYMBICORT AERO 12/09 BUDESONIDE-FORMOTER OL FUMARATE AERO 74287338664 Phyllis Wong RN, MS, DEPARTMENT STORE SALESPERSON, SALES REPRESENTATIVE SALES MANAGER CELEXA 20 MG TABS 1 qd 10/17 CITALOPRAM HYDROBROMIDE 19679730245 Phyllis Wong RN, MS, DEPARTMENT STORE SALESPERSON, SALES REPRESENTATIVE SALES MANAGER SINGULAIR TABS 12/09 MONTELUKAST SODIUM TABS 45656175527 Phyllis Wong RN, MS, DEPARTMENT STORE SALESPERSON, SALES REPRESENTATIVE SALES MANAGER OMEPRAZOLE 20 MG CPDR 09/20 OMEPRAZOLE 98118179161 Phyllis Wong RN, MS, DEPARTMENT STORE SALESPERSON, SALES REPRESENTATIVE SALES MANAGER BUSPIRONE HCL 10 MG TABS 08/05 BUSPIRONE HCL 35405916413 Phyllis Wong RN, MS, DEPARTMENT STORE SALESPERSON, SALES REPRESENTATIVE SALES MANAGER ATIVAN 1 MG TABS 07/27 LORAZEPAM [id number] Phyllis Wong RN, MS, DEPARTMENT STORE SALESPERSON, SALES REPRESENTATIVE SALES MANAGER ZANAFLEX 6 MG ORAL CAPSULE 1 @ hs 12/09 TIZANIDINE HCL 68027426385 Phyllis Wong RN, MS, DEPARTMENT STORE SALESPERSON, SALES REPRESENTATIVE SALES MANAGER ZANAFLEX 4 MG ORAL CAPSULE 1 qhs 12/09 TIZANIDINE HCL 57649347769 Phyllis Wong RN, MS, DEPARTMENT STORE SALESPERSON, SALES REPRESENTATIVE SALES MANAGER ZANAFLEX 2 MG ORAL CAPSULE 1 q hs 12/09 TIZANIDINE HCL 16968255945 Phyllis Wong RN, MS, DEPARTMENT STORE SALESPERSON, SALES REPRESENTATIVE SALES MANAGER POTASSIMIN TABLET 08/30 POTASSIUM TABS 12736724227 Phyllis Wong RN, MS, DEPARTMENT STORE SALESPERSON, SALES REPRESENTATIVE SALES MANAGER CALCIUM TABLET 08/30 CALCIUM CARBONATE-VITAMIN D TABS 41209685097 Phyllis Wong RN, MS, DEPARTMENT STORE SALESPERSON, SALES REPRESENTATIVE SALES MANAGER SLOW RELEASE IRON TABLET EXTENDED RELEASE 08/30 FERROUS SULFATE DRIED CR-TABS 56931903930 Phyllis Wong RN, MS, DEPARTMENT STORE SALESPERSON, SALES REPRESENTATIVE SALES MANAGER BINA-TAB 500 MG TBEC for acne 07/26 ERYTHROMYCIN BASE 43323869681 Phyllis Wong RN, MS, DEPARTMENT STORE SALESPERSON, SALES REPRESENTATIVE SALES MANAGER PROZAC 40 MG ORAL CAPSULE 80mg daily 04/09 FLUOXETINE HCL 88251877607 Phyllis Wong RN, MS, DEPARTMENT STORE SALESPERSON, SALES REPRESENTATIVE SALES MANAGER IBUPROFEN 800 MG TABS 2x/day as needed 07/26 IBUPROFEN 11748203312 Phyllis Wong RN, MS, DEPARTMENT STORE SALESPERSON, SALES REPRESENTATIVE SALES MANAGER KETOROLAC TROMETHAMINE 10 MG TABS 1 po q6h prn migraine not to take longer than 4 days 05/19 KETOROLAC TROMETHAMINE 03351879583 Aminah Alcala RN, SALES REPRESENTATIVE SALES MANAGER CYCLOBENZAPRINE HCL 10 MG TABS One pill at bedtime as needed for muscle spasm 10/04 CYCLOBENZAPRINE HCL 73425276631 Yaima Ledesma DNP,DEPARTMENT STORE SALESPERSON,SALES REPRESENTATIVE SALES MANAGER PROZAC 40 MG ORAL CAPSULE 80mg daily 04/09 FLUOXETINE HCL [id number] Yaima Ledesma DNP,DEPARTMENT STORE SALESPERSON,SALES REPRESENTATIVE SALES MANAGER LORAZEPAM 1 MG TABS 3x/day 07/26 LORAZEPAM [id number] Vladimir Pa Jr, MD MORPHINE SULFATE 15 MG TABS 15 mg po TID PRN for pain. Do not use more than 2 days per week. 10/14 MORPHINE SULFATE [id number] Rommel Ryder MD DEPAKOTE ER 500 MG [id number] 1000 mg PO Q HS 10/14 DIVALPROEX SODIUM [id number] Rommel Ryder MD CYCLOBENZAPRINE HCL 10 MG TABS One pill at bedtime as needed for muscle spasm 10/04 CYCLOBENZAPRINE HCL [id number] Rommel Ryder MD CYCLOBENZAPRINE HCL 10 MG TABS Take one pill every evening 07/26 CYCLOBENZAPRINE HCL 75748435292 Rommel Ryder MD L-LYSINE HCL TABS 08/30 LYSINE HCL TABS [id number] Yaima Ledesma DNP,DEPARTMENT STORE SALESPERSON,SALES REPRESENTATIVE SALES MANAGER MAGNESIUM CAPSULE 08/30 MAGNESIUM OXIDE CAPS 66694838946 Yaima Ledesma DNP,DEPARTMENT STORE SALESPERSON,SALES REPRESENTATIVE SALES MANAGER POTASSIMIN TABLET 08/30 POTASSIUM TABS [id number] Yaima Ledesma DNP,DEPARTMENT STORE SALESPERSON,SALES REPRESENTATIVE SALES MANAGER B COMPLEX ORAL TABLET 08/30 B COMPLEX VITAMINS 38132297093 Yaima Ledesma DNP,DEPARTMENT STORE SALESPERSON,SALES REPRESENTATIVE SALES MANAGER VITAMIN D CAPS 4000u 08/30 CHOLECALCIFEROL CAPS 82324057238 Yaima Ledesma DNP,DEPARTMENT STORE SALESPERSON,SALES REPRESENTATIVE SALES MANAGER CALCIUM TABLET 08/30 CALCIUM CARBONATE-VITAMIN D TABS [id number] Yaima Ledesma DNP,DEPARTMENT STORE SALESPERSON,SALES REPRESENTATIVE SALES MANAGER DEPAKOTE ER 500 MG [id number] One pill daily 08/30 DIVALPROEX SODIUM [id number] Yaima Ledesma DNP,DEPARTMENT STORE SALESPERSON,SALES REPRESENTATIVE SALES MANAGER FERROUS SULFATE 324 MG TBEC 07/26 FERROUS SULFATE [id number] Yaima Ledesma DNP,DEPARTMENT STORE SALESPERSON,SALES REPRESENTATIVE SALES MANAGER SLOW RELEASE IRON TABLET EXTENDED RELEASE 08/30 FERROUS SULFATE DRIED CR-TABS [id number] Yaima Ledesma DNP,DEPARTMENT STORE SALESPERSON,SALES REPRESENTATIVE SALES MANAGER MULTIVITAMINS TABS 07/26 MULTIPLE VITAMIN [id number] Yaima Ledesma DNP,DEPARTMENT STORE SALESPERSON,SALES REPRESENTATIVE SALES MANAGER FERROUS SULFATE 324 MG TBEC 07/26 FERROUS SULFATE 88287584333 Yaima Ledesma DNP,DEPARTMENT STORE SALESPERSON,SALES REPRESENTATIVE SALES MANAGER BINA-TAB 500 MG TBEC for acne 07/26 ERYTHROMYCIN BASE [id number] [facility] DNP,DEPARTMENT STORE SALESPERSON,SALES REPRESENTATIVE SALES MANAGER LEVOTHROID 75 MCG TABS daily 07/26 LEVOTHYROXINE SODIUM [id number] Yaima Lozanoigel DNP,DEPARTMENT STORE SALESPERSON,SALES REPRESENTATIVE SALES MANAGER LORAZEPAM 1 MG TABS 3x/day 07/26 LORAZEPAM [id number] Yaima Lozanoigel DNP,DEPARTMENT STORE SALESPERSON,SALES REPRESENTATIVE SALES MANAGER PROZAC 40 MG ORAL CAPSULE daily 07/26 FLUOXETINE HCL [id number] [facility] DNP,DEPARTMENT STORE SALESPERSON,SALES REPRESENTATIVE SALES MANAGER IBUPROFEN 800 MG TABS 2x/day as needed 07/26 IBUPROFEN [id number] [facility] DNP,DEPARTMENT STORE SALESPERSON,SALES REPRESENTATIVE SALES MANAGER MEDROL 4 MG TBPK Take as directed 03/17 METHYLPREDNISOLONE [id number] [facility] EDYTA,DEPARTMENT STORE SALESPERSON,SALES REPRESENTATIVE SALES MANAGER ZOFRAN ODT 4 MG ORAL TABLET DISINTEGRATING 1 PO Q 6-8 hr prn nausea and vomiting with migraine 03/27 ONDANSETRON [id number] [facility] DNP,DEPARTMENT STORE SALESPERSON,SALES REPRESENTATIVE SALES MANAGER CYCLOBENZAPRINE HCL 10 MG TABS Take one pill every evening 07/26 CYCLOBENZAPRINE HCL 14315460502 [facility] EDYTA,DEPARTMENT STORE SALESPERSON,SALES REPRESENTATIVE SALES MANAGER GABAPENTIN CAPS 900 mg PO BID and 600 mg PO in the afternoon. 05/06 GABAPENTIN CAPS 49608322003 Rommel Ryder MD GABAPENTIN CAPS 600 MG PO TID 03/25 GABAPENTIN CAPS 51538387001 Rommel Ryder MD MEDROL 4 MG TBPK Take as directed 03/17 METHYLPREDNISOLONE 84682742098 Rommel Ryder MD GABAPENTIN CAPS 300 MG PO TID 03/27 GABAPENTIN CAPS 80708065455 Rommel Ryder MD ZOFRAN ODT 4 MG ORAL TABLET DISINTEGRATING 1 PO Q 6-8 hr prn nausea and vomiting with migraine 03/27 ONDANSETRON 99769942038 Rommel Ryder MD GABAPENTIN CAPS 2 qhs 03/22 GABAPENTIN CAPS 68588283302 Dahlia Henry LPN VICODIN 5-500 MG TABS 1 to 2 tabs PO q 6 hours PRN for headache 12/08 HYDROCODONE-ACETAMI NOPHEN 16709912861 Dahlia Henry LPN ZONEGRAN 100 MG CAPS 200 mg AM - 300 mg HS 01/20 ZONISAMIDE 08970100130 Dahlia Henry LPN GABAPENTIN CAPS 300 MG PO Q HS x 1 WEEK, 300 MG PO BID x 1 WEEK, 300 MG PO TID 09/20 GABAPENTIN CAPS 32821497443 Rommel Ryder MD ZONEGRAN 100 MG CAPS 200 mg AM - 300 mg HS 06/25 ZONISAMIDE 74584981345 Rommel DUMONT ODT 4 MG ORAL TABLET DISINTEGRATING 1 po qw6-8hr prn nausea and vomiting with migraine 12/08 ONDANSETRON [id number] Aminah Alcala RN, SALES REPRESENTATIVE SALES MANAGER MORPHINE SULFATE 15 MG TABS 15 mg po TID PRN for pain 12/08 MORPHINE SULFATE 26282372065 Aminah Alcala RN, SALES REPRESENTATIVE SALES MANAGER ZONEGRAN 100 MG CAPS 300mg am- 200mg pm 12/08 ZONISAMIDE 30741159700 Aminah Alcala RN, SALES REPRESENTATIVE SALES MANAGER ZONEGRAN 100 MG CAPS 200 mg PO BID 06/25 ZONISAMIDE 56324446937 Rommel Ryder MD VICODIN 5-500 MG TABS 1 to 2 tabs PO q 6 hours PRN for headache 12/08 HYDROCODONE-ACETAMI NOPHEN 21622406933 Rommel Ryder MD ZONEGRAN 100 MG CAPS 100 MG PO QHS x 1 week, 100 MG PO BID x 1 week, 100 mg PO Q AM and 200 mg PO Q HS x 1 week, 200 mg PO BID 11/23 ZONISAMIDE 82547373868 Rommel Ryder MD TOPAMAX 25 MG TABS 25 MG PO BID X 1 WEEK then 50 MG PO BID 10/28 TOPIRAMATE 77103196989 Rommel Ryder MD TOPAMAX 25 MG TABS 25 MG PO BID X 1 WEEK then 50 MG PO BID 10/28 TOPIRAMATE 81408110044 Rommel Ryder MD VIOXX TABS 25 MG 1 QD PRN 07/05 ROFECOXIB [id number] Rommel Ryder MD SOMA 350 MG TABS 1 Q HS PRN 0 07/05 CARISOPRODOL [id number] Rommel Ryder MD VIOXX TABS 25 MG 1 QD PRN 07/05 ROFECOXIB [id number] Valerio Zee MD SOMA 350 MG TABS 1 Q HS PRN 07/05 CARISOPRODOL 65531804071 Valerio Zee MD Medications Administered No information [...] PREDNISONE Critical No Longer Active Rasmita Paz DEPARTMENT STORE SALESPERSON SALES REPRESENTATIVE SALES MANAGER VICODIN Unknown No Longer Active Rommel Ryder MD VICODIN Severe No Longer Active Phyllis Wong RN, MS, DEPARTMENT STORE SALESPERSON, SALES REPRESENTATIVE SALES MANAGER PREDNISONE Critical No Longer Active Rommel Ryder MD VICODIN Critical No Longer Active Aminah Alcala RN, SALES REPRESENTATIVE SALES MANAGER TETRACYCLINE Critical No Longer Active Rommel Ryder [...] for D IVALPROEX EXTENDED RELEASE 500MG T [facility]_RR [id number] `DIVALPROEX EXTENDED RELEASE 500MG T`500`ME`60 Tablet`30`TYLER E 2 TABLETS BY MOUTH EVERY NIGHT AT BEDTIME``1`0` [id number]`2012 1021`[employer] 13125*``[id number]`` B e-scripts messen manuel refill request Internal [...] Yes Consent To Release information to the [employer] (HereOrThere) Office Visit: MIRELA Follow Up 11/19/20 MAIL [...] Nerve Bloc k and Trigger Point Injections [id number] Occipital nerve bloc k (Greater ONB) bilateral CPT-61971 Trigger point inj (3+ musc) CPT-J1100 Dexamethasone -- 15 mg 02/16 ORDERS Occipital Nerve Bloc k and Trigger Point Injections ORDERS TSH ORDERS T4 Free Direct ORDERS Ammonia ORDERS Occipital Nerve Bloc k and Trigger Point Injections CPT-19561 Trigger point inj (3+ musc) CPT-8917635 Occipital nerve bloc k (Greater ONB) bilateral CPT-J1100 Dexamethasone -- 15 mg 11/24 ORDERS Follow up MIRELA ORDERS We will contact you with test results 202 03/21/08 [facility]-[id number] Documentation of current medicatio ns ORDERS Occipital Nerve Bloc k and Trigger Point Injections CPT-27779 Trigger point inj (3+ musc) CPT-9063331 Occipital nerve bloc k (Greater ONB) bilateral CPT-J1100 Dexamethasone -- 10 mg 08/06 [id number] Consult CPT-65174 Trigger point inj (3+ musc) CPT-4546314 Occipital nerve bloc k (Greater ONB) bilateral CPT-J1100 Dexamethasone - 4 mg ORDERS Occipital Nerve Bloc k and Trigger Point Injections CPT-53535 Trigger point inj (3+ musc) CPT-3185962 Occipital nerve bloc k (Greater ONB) bilateral CPT-J1100 Dexamethasone -- 10 mg 11/11 ORDERS Dysport Injection ORDERS Occipital Nerve Bloc k and Trigger Point Injections ORDERS Occipital Nerve Bloc k and Trigger Point Injections CPT-12329 Trigger point inj (3+ musc) CPT-5995042 Occipital nerve bloc k (Greater ONB) bilateral ORDERS Migraine Infusion Or gregoria Set #1: Depacon/Solu-Medrol/Toradol CPT-J1100 Dexamethasone - 8mg CPT-63208 Trigger point inj (3+ musc) CPT-1821214 Occipital nerve bloc k (Greater ONB) bilateral ORDERS Occipital Nerve Bloc k and Trigger Point Injections ORDERS Follow up ORDERS Migraine Infusion Or gregoria Set #1: Depacon/Solu-Medrol/Toradol CPT-5940092 Occipital nerve block (Greater ONB) x2 20 02/05/25 CPT-19064 Trigger point inj (3+ musc) ORDERS Follow up CPT-61548 Trigger point inj (3+ musc) CPT-2702589 Occipital nerve block x2 202 0 CPT-J1100 Dexamethasone - 8mg ORDERS Follow up ORDERS Sleep Consult [id number] Other Referral CPT-R4133K Dysport 500u - 1 vial 04/08 CPT-26584 Chem - Face/Neck - Migraine or Headache 2 ORDERS Follow up ORDERS Patient Instructions CPT-1769195 Occipital nerve block x2 201 11/19/22 CPT-87503 Trigger point inj (3+ musc) CPT-J1100 Dexamethasone [id number] Other Referral ORDERS Follow up CPT-I1322G Dysport 500u - 1 vial 0 10/30 CPT-02668 Chem - Face/Neck - Migraine or Headache 2 ORDERS Follow up ORDERS Patient Instructions CPT-48151 Trigger point inj (3+ musc) CPT-3838047 Occipital nerve block x2 201 11/17/00 CPT-J1100 Dexamethasone -- 15 mg 09/10 [facility]-[id number] Documentation of current medicatio ns ORDERS Patient Instructions ORDERS Patient Instructions [id number] Other Referral ORDERS Follow up CPT-P7396A Dysport 500u - 1 vial 07/16 CPT-80763 Chem - Face/Neck - Migraine or Headache 2 ORDERS Follow up ORDERS Follow up ORDERS Instructions for Staff 06/06 CPT-8076485 Occipital nerve block x2 201 11/13/26 CPT-26241 Trigger point inj (1-2 musc) CPT-J1100 Dexamethasone -- 15 mg 06/06 CPT-M8901M Dysport 500u - 1 vial 2019/0 04/04 CPT-70256 Chem - Face/Neck - Migraine or Headache 2 CPT-X7983F Dysport 500u - 1 vial 03/24 CPT-59324 Chem - Face/Neck - Migraine or Headache 2 ORDERS Follow up ORDERS Follow up ORDERS Migraine Order Set # 1: Depacon/Solu-Medrol/Toradol [id number]-[id number] Other Referral ORDERS Patient Instructions ORDERS Follow up [id number] Documentation of current medicatio ns ORDERS Patient Instructions ORDERS Follow up ORDERS Other Test CPT-J4021Y Dysport 500u - 1 vial 201810/16 CPT-76808 Chem - Face/Neck - Migraine or Headache 2 SCT-[id number] Documentation of current medicatio ns ORDERS Patient Instructions [id number] Other Referral ORDERS Patient Instructions ORDERS Ferritin Serum [id number] Documentation of current medicatio ns [id number] Other Referral ORDERS Follow up [id number] Other Referral CPT-34557 PSG, 4+ parameters w / tech - 6yrs or older (32212) ORDERS Ammonia ORDERS Patient Instructions [id number] Other Referral [id number] Documentation of current medicatio ns ORDERS ALT (SGPT) ORDERS AST (SGOT) ORDERS CBC no Diff/ Platelet 07/27 ORDERS TSH ORDERS Vitamin B12 ORDERS Follow up CPT-R7529I Dysport 500u - 1 vial 07/25 CPT-28251 Chem - Face/Neck - Migraine or Headache 2 ORDERS Follow up CPT-D6592R Dysport 500u - 1 vial 05/02 CPT-84646 Chem - Face/Neck - Migraine or Headache 2 CPT-A6863T Dysport 500u - 1 vial 04/09 CPT-76387 Chem - Face/Neck - Migraine or Headache 2 ORDERS Follow up ORDERS Follow up CPT-B8775I Dysport 500u - 1 vial 11/10 CPT-77009 Chem - Face/Neck - Migraine or Headache 2 ORDERS Migraine Order Set # 1: Depacon/Solu-Medrol/Toradol ORDERS Follow up CPT-26539 Brief emotional/behavioral assessment 201 09/17/06 CPT-Y7345I Dysport 300u - 1 vial 03/15 CPT-24786 Chem - Face/Neck - Migraine or Headache 2 SCT-[id number] Documentation of current medicatio ns SCT-[id number] Documentation of current medicatio ns CPT-F3193G * Depacon 1000mg (enter units) CPT-J2930 * Solu-Medrol, 1000 mg / 1g (x8) CPT-J2405 * Zofran 1mg (enter units) 2 CPT-O0915Q * Toradol 60mg (enter units) CPT-B6753p * Normal Saline 200 cc 01/15 CPT-42865 IV infusion - Primar y Indication (16 min - 1 hr 30 min ) CPT-95407 Each add IVP of new drug/ Repeats if 30m apart/Each Add Tere Ind drug 15m or less CPT-J2930 * Solu-Medrol, 1000 mg / 1g (x8) CPT-X0103S * Depacon 1000mg (enter units) CPT-J2405 * Zofran 1mg (enter units) 2 CPT-J1885 * Toradol 15mg (enter units) CPT-G3870u * Normal Saline 200 cc 10/04 CPT-24488 IV infusion - Primar y Indication (16 min - 1 hr 30 min ) CPT-53027 Each add IVP of new drug/ Repeats if 30m apart/Each Add Tere Ind drug 15m or less CPT-38547 MRI Cervical W/O CPT-90077 MRI Cervical W/O CPT-J2930 * Solu-Medrol, 1000 mg / 1g (x8) CPT-U7690Z * Depacon 1000mg (enter units) CPT-J2405 * Zofran 1mg (enter units) 2 CPT-J1885 * Toradol 15mg (enter units) CPT-N8259U * Normal Saline 100 cc 02/07 CPT-59491 IV infusion - Primar y Indication (16 min - 1 hr 30 min ) CPT-37589 Each add IVP of new drug/ Repeats if 30m apart/Each Add Tere Ind drug 15m or less CPT-J2930 * Solu-Medrol, 1000 mg / 1g (x8) CPT-J2405 * Zofran 1mg (enter units) 2 CPT-J1885 * Toradol 15mg (enter units) CPT-J1536M * Normal Saline 100 cc 01/10 CPT-44276 IV infusion - Primar y Indication (16 min - 1 hr 30 min ) CPT-09755 Each add IVP of new drug/ Repeats if 30m apart/Each Add Tere Ind drug 15m or less CPT-39740 Multiple Sleep Latency Testing (16104) 20 01/19/26 CPT-78907 Polysomnography, 4+ parameters w/ tech (21504) CPT-J2930 * Solu-Medrol, 1000 mg / 1g (x8) CPT-W2392V * Normal Saline 100 cc 11/22 CPT-J2405 * Zofran 1mg (enter units) 2 CPT-C8814M * Depacon 500 mg CPT-95673 IV infusion - Primar y Indication (16 min - 1 hr 30 min ) CPT-21779 Each add IVP of new drug/ Repeats if 30m apart/Each Add Tere Ind drug 15m or less CPT-G8553 eRX Charge CPT-J2930 * Solu-Medrol, 1000 mg / 1g (x8) CPT-J4287N * Depacon 1000mg (enter units) CPT-J1885 * Toradol 15mg (enter units) CPT-U4603Y * Normal Saline 100 cc 08/16 CPT-61668 IV infusion - Primar y Indication (16 min - 1 hr 30 min ) CPT-85354 Each add IVP of new drug/ Repeats if 30m apart/Each Add Tere Ind drug 15m or less CPT-W4749F * Depacon 500 mg CPT-J2930 * Solu-Medrol, 1000 mg / 1g (x8) CPT-J1885 * Toradol 15mg (enter units) CPT-J2405 * Zofran 1mg (enter units) 2 CPT-55412 IV infusion - Primar y Indication (16 min - 1 hr 30 min ) CPT-93748 Each add IVP of new drug/ Repeats if 30m apart/Each Add Tere Ind drug 15m or less CPT-98150 Each add IVP of new drug/ Repeats if 30m apart/Each Add Tere Ind drug 15m or less CPT-F8746M * Depacon 1000mg (enter units) CPT-J2930 * Solu-Medrol, 1000 mg / 1g (x8) CPT-Z6767l * Normal Saline 200 cc 07/14 CPT-J2405 * Zofran 1mg (enter units) 2 CPT-J1885 * Toradol 15mg (enter units) CPT-98376 IV infusion - Primar y Indication (16 min - 1 hr 30 min ) CPT-84727 Infusion -- Tere Venita cation for 15 min or less/Single Push CPT-J2930 * Solu-Medrol, 1000 mg / 1g (x8) CPT-M0524S * Depacon 1000mg (enter units) CPT-J1885 * Toradol 15mg (enter units) CPT-W1943Y * Normal Saline 100 cc 07/05 CPT-58745 IV infusion - Primar y Indication (16 min - 1 hr 30 min ) CPT-35269 Each add IVP of new drug/ Repeats if 30m apart/Each Add Tere Ind drug 15m or less CPT-J2930 * Solu-Medrol, 1000 mg / 1g (x8) CPT-D7547L * Depacon 1000mg (enter units) CPT-J2405 * Zofran 1mg (enter units) 2 CPT-J1885 * Toradol 15mg (enter units) CPT-Q3918U * Normal Saline 100 cc (enter units) 2010 CPT-65610 Infusion -- Tere Venita cation for 15 min or less/Single Push CPT-69806 Each add IVP of new drug/ Repeats if 30m apart/Each Add Tere Ind drug 15m or less CPT-J2930 * Solu-Medrol, 1000 mg / 1g (x8) CPT-H0141N * Depacon 1000mg (enter units) CPT-J1885 * Toradol 15mg (enter units) CPT-V3226L * Normal Saline 100 cc 04/26 CPT-34679 IV infusion - Primar y Indication (16 min - 1 hr 30 min ) CPT-68754 Infusion -- Tere Venita cation for 15 min or less ONLY/Single Push ONLY CPT-82640 IV Infusion - Each A ddtl Tere Indication Med (16 min or more) - (enter units) CPT-J2930 * Solu-Medrol, 1000 mg / 1g (x8) CPT-A0542I * Depacon 1000mg (enter units) CPT-J2405 * Zofran 1mg (enter units) 2 CPT-J1885 * Toradol 15mg (enter units) CPT-O0568X * Normal Saline 100 cc 03/24 CPT-87277 Infusion -- Tere Venita cation for 15 min or less ONLY/Single Push ONLY CPT-33997 IV infusion - Primar y Indication (16 min - 1 hr 30 min ) CPT-82246 IV Infusion - Each A ddtl Tere Indication Med (16 min or more) - (enter units) CPT-J1100 Dexamethasone -- 10 mg 03/11 CPT-2082911 Occipital nerve block x2 201 CPT-J1100 Dexamethasone - 4 mg CPT-4378907 Occipital nerve block x2 201 CPT-J1100 Dexamethasone - 4 mg CPT-8416544 Occipital nerve block x2 201 CPT-J2930 * Solu-Medrol, 1000 mg / 1g (x8) CPT-E6345P * Depacon 1000mg (enter units) CPT-J2405 * Zofran 1mg (enter units) 2 CPT-J1885 * Toradol 15mg (enter units) CPT-G0788X * Normal Saline 100 cc 12/04 CPT-41811 IV infusion - Primar y Indication (16 min - 1 hr 30 min ) CPT-06034 Each add IVP of new drug/ Repeats if 30m apart/Each Add Tere Ind drug 15m or less CPT-J2930 * Solu-Medrol, 1000 mg / 1g (x8) CPT-M3190B * Depacon 1000mg (enter units) CPT-01858 IV infusion - Primar y Indication (16 min - 1 hr 30 min ) CPT-69068 IV Infusion - Each A ddtl Tere Indication Med (16 min or more) - (enter units) CPT-Y3706X * Normal Saline 200 cc 11/10 CPT-J2405 * Zofran 1mg (enter units) 2 CPT-J1885 * Toradol 15mg (enter units) CPT-06464 MRI Brain (With & Without Contrast) 11/05 A9579 ProHance Pedrito-based MR Contrast, 20 ml via l CPT-J2930 * Solu-Medrol, 1000 mg / 1g (x8) CPT-K7009D * Depacon 1000mg (enter units) CPT-J1885 * Toradol 15mg (enter units) CPT-G8725I * Normal Saline 100 cc 10/28 CPT-74761 Each add IVP of new drug/ Repeats if 30m apart/Each Add Tere Ind drug 15m or less CPT-61178 IV infusion - Primar y Indication (16 [...]
--- OUTSIDE RECORDS SUMMARY | 2024-12-25 17:17 | XMS_ITS | Patient Health Record ---
Author Organization [facility] - Primary Address [address] [place] [id number] Care Team Providers Care Tip Printer Name Role Phone Different, PCP Primary Care Provider Unavailabl e Allergies Allergen (clinical drug ingredient) Drug/Non Drug [...] Status Risk Notes Problem Posttraumatic stress disorder (37349256) Post-traumatic stress disorder, chronic (F43.12) Active confirmed Problem Headache (51823970) Headache, unspecified (R51.9) Active confirmed Plan Of Treatment No Information Insurance Providers Payer Name Payer Address Payer Phone Subscriber Number Group Number Insured Name Patient Relationship to Insured Coverage Start Date Coverage End Date [employer] [address] [address] [place] [address] [id number] Korina Soto Self - patient is the insured Medical (General) History Medical History History ICD Code anxiety PTSD sleep apnea Hypothyroidism depression insomnia allergies parkinson's disease Surgical History Surgery Date(Month/Year) colonoscopy 11/2022
[2024-12-25 17:29] VITALS: BP 124/66; PULSE 77; RESP 18; TEMP 36.2; O2SAT 96; BMI 28.3
--- NOTE | 2024-12-25 17:51 | PC.NURSE ---
adria nurse paged
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
--- OUTSIDE RECORDS SUMMARY | 2024-12-25 18:07 | XMS_ITS | Clinical Summary ---
Author Organization [facility] Address [address] , [address] [place] [address] Phone Care Team Providers Care Distribution Sales Representative Name Role Phone [facility]available Unava ilable Conditions or Problems Problem Name Problem Code Onset Date Status Entry Date Provider Comment Standard Description Annotate Tremor 18916740 (SNOMED CT) 04/05 Active 04/05 Yaima Ledesma DNP,[employer] FINISHER,CN P Tremor Occipital neuralgia, bilateral M54.81 (ICD-10-CM) 11/11 Active 11/11 Yaima Ledesma DNP,[employer] FINISHER,CN P Occipital neuralgia Cervical spasm 95920332 (SNOMED CT) 11/11 Active 11/11 Yaima Nicolle Ledesma DNP,[employer] FINISHER,CN P Muscle spasm of head and/or neck 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 (ICD-10-CM) 07/30 Active 07/30 Vladimir Pa Jr, MD Circadian rhythm sleep disorder, delayed sleep phase type Parasomnia 00894394 (SNOMED CT) 11/09 Active 11/15 Rasmita Jackson [employer] FINISHER DUMPCART DRIVER Parasomnia Neck pain, chronic 068570882878 7 (SNOMED CT) 09/14 Active 09/14 Rasmita Paz [employer] FINISHER DUMPCART DRIVER Chronic neck pain Periodic limb movement disorder (PSG 2018: severe; 47/hr) 183474826 (SNOMED CT) 08/01 Active 08/02 Vladimir Pa Jr, MD Periodic limb movement disorder Obstructive sleep apnea (PSG 2018: mild; AHI 6; RDI 7; roz 83%) 92177746 (SNOMED CT) 08/01 Active 08/02 Vladimir Pa Jr, MD Obstructive sleep apnea syndrome Insomnia 438688655 (SNOMED CT) 07/27 Active 07/27 Vladimir Pa Jr, MD Insomnia Hypersomnia (ESS 17; NL MSLT 2010 [facility]) 17727332 (SNOMED CT) 07/27 Active 07/27 Vladimir Pa Jr, MD Hypersomnia NECK PAIN 64193257 (SNOMED CT) 04/09 Resolved 04/09 Rommel Ryder MD Neck pain SPASM OF MUSCLE 78492592 (SNOMED CT) 07/26 Resolved 07/27 Rommel Ryder MD Spasm CELIAC DISEASE 510856513 (SNOMED CT) Resolved Rommel Ryder MD Celiac disease FACIAL WEAKNESS 85359691 (SNOMED CT) 11/03 Resolved 11/03 Rommel Ryder MD Weakness of face muscles ANEMIA 592691573 (SNOMED CT) Resolved Rommel Ryder MD Anemia LUMBAR STRAIN 436255362 (SNOMED CT) 06/24 Resolved 06/24 Rommel Ryder MD Low back strain CERVICAL STRAIN 966331371 (SNOMED CT) 06/24 Resolved 06/24 Rommel Ryder MD Strain of neck muscle HEADACHE 95512651 (SNOMED CT) 10/28 Resolved 10/28 Rommel Ryder MD Headache FATIGUE (NL MSLT) 780.79 (ICD-9-CM) 12/06 Resolved 12/06 Rommel Ryder MD Other malaise and fatigue CHRONIC MIGRAINE W/O AURA W/O INTRACTABLE W/O SM G43.709 (ICD-10-CM) Active Phyllis Wong RN, MS, [employer] FINISHER, DUMPCART DRIVER Chronic migraine without aura, not intractable, without status migrainosus ANEMIA 593772302 (SNOMED CT) Removed Phyllis Wong RN, MS, [employer] FINISHER, DUMPCART DRIVER Anemia CELIAC DISEASE 184642838 (SNOMED CT) Removed Phyllis Wong RN, MS, [employer] FINISHER, DUMPCART DRIVER Celiac disease NECK PAIN 75815958 (SNOMED CT) 04/09 Removed 04/09 Yaima Ledesma DNP,[employer] FINISHER,CN P Neck pain FATIGUE (NL MSLT) 780.79 (ICD-9-CM) 12/06 Removed 12/06 Vladimir Pa Jr, MD Other malaise and fatigue HYPERSOMNIA 20929636 (SNOMED CT) 09/03 Resolved 09/03 Vladimir Pa Jr, MD Hypersomnia SLEEP DISTURBANCE, NOS 64549066 (SNOMED CT) 08/30 Resolved 08/30 Vladimir Pa Jr, MD Dyssomnia HYPERSOMNIA 69102986 (SNOMED CT) 09/03 Removed 09/03 Vladimir Pa Jr, MD Hypersomnia SNORING 81478114 (SNOMED CT) 09/03 Active 09/03 Vladimir Pa Jr, MD Snoring SLEEP DISTURBANCE, NOS 79498951 (SNOMED CT) 08/30 Removed 08/30 Yaima Ledesma DNP,[employer] FINISHER,CN P Dyssomnia SPASM OF MUSCLE 58138708 (SNOMED CT) 07/26 Removed 07/27 Yaima Ledesma DNP,[employer] FINISHER,CN P Spasm HEADACHE 77281638 (SNOMED CT) 10/28 Removed 10/28 Rommel Ryder MD Headache FACIAL WEAKNESS 97991104 (SNOMED CT) 11/03 Removed 11/03 Carson Luther MD Weakness of face muscles LUMBAR STRAIN 077764113 (SNOMED CT) 06/24 Removed 06/24 Valerio Zee MD Low back strain CERVICAL STRAIN 467002867 (SNOMED CT) 06/24 Removed 06/24 Valerio Zee MD Strain of neck muscle Medications Medication Instructions Start Date Stop Date Generic Name NDC Provider DIVALPROEX SODIUM ER 500 MG [id number] Take 1 tablet by mouth every night 08/05 divalproex 93883393946 Nay Tan PA-C DIVALPROEX SODIUM ER 500 MG [id number] TAKE 1 TABLET BY MOUTH AT BEDTIME *APPOINTMENT NEEDED* 10/05 divalproex 28017784888 Nay Tan PA-C NURTEC 75 MG TBDP Take 1 tab by mouth (place on or under tongue) at migraine onset. Maximum dose: 1 tab/24 hrs rimegepant 09942058958 Nay Tan PA-C TIZANIDINE HCL 2 MG TABS Take 1 tablet by mouth every eight hours as needed 04/01 tizanidine 24109686790 Rommel Ryder MD FLUOXETINE HCL 40 MG CAPS Take 2 capsule by mouth every morning 07/21 fluoxetine 18949722045 Rommel Ryder MD WIXELA INHUB 100-50 MCG/ACT AEPB Use 1 by mouth twice a day 11/04 fluticasone propion-salmeterol 87369113531 Rommel Ryder MD OMEPRAZOLE 20 MG CPDR omeprazole 84581729072 Nay Tan PA-C MELATONIN TABLET 3 mg every night 08/09 MELATONIN TABLET Nay Tan PA-C MONTELUKAST SODIUM 10 MG TABS Take 1 tablet by mouth every night 11/11 montelukast 04562981641 Rommel Ryder MD LEVOTHYROXINE SODIUM 125 MCG TABS 07/26 levothyroxine 59808753092 Rommel Ryder MD GABAPENTIN 300 MG CAPS 900 mg by mouth three times a day 05/06 gabapentin 16896728170 Rommel Ryder MD DIVALPROEX SODIUM ER 500 MG [id number] Take 1 tablet by mouth every night 08/05 divalproex 70169834307 Dahlia Henry LPN AJOVY 225 MG/1.5ML SOAJ Inject 1 pen injector subcutaneously once a month 11/19 [facility] 21932628187 Nay Tan PA-C DIVALPROEX SODIUM ER 500 MG [id number] TAKE 1 TABLET BY MOUTH AT BEDTIME 08/05 DIVALPROEX SODIUM 94863605455 Rommel Ryder MD EMGALITY 120 MG/ML SOAJ 240 mg on first month then 120 mg Q month 08/05 [facility] 88518271033 Rommel Ryder MD DEPAKOTE ER 500 MG [id number] 500 mg Q HS 10/05 DIVALPROEX SODIUM 11520583502 Rommel Ryder MD GABAPENTIN 300 MG CAPS 900 mg PO TID 05/06 GABAPENTIN 67921179429 Rommel Ryder MD BELSOMRA 20 MG TABS 1 orally QHS at 11:45pm for 12am bedtime 07/30 SUVOREXANT 03371161307 Rommel Ryder MD MULTIVITAMINS TABS 07/26 MULTIPLE VITAMIN 99926522957 Rommel Ryder MD B COMPLEX ORAL TABLET 08/30 B COMPLEX VITAMINS 19250310769 Rommel Ryder MD PROVENTIL HFA 108 (90 BASE) MCG/ACT INHALATION AEROSOL SOLUTION 08/05 ALBUTEROL SULFATE 42490418987 Rommel Ryder MD BUSPIRONE HCL 10 MG TABS 08/05 BUSPIRONE HCL 26574283102 Rommel Ryder MD VITAMIN D CAPS 4000u 08/30 CHOLECALCIFEROL CAPS 47964035416 Rommel Ryder MD SINGULAIR 10 MG TABS 08/05 MONTELUKAST SODIUM 06219633617 Rommel Ryder MD FLUOXETINE HCL 20 MG CAPS 05/19 FLUOXETINE HCL 30846447981 Rommel Ryder MD MONTELUKAST SODIUM 10 MG TABS TK 1 T PO QHS 11/11 MONTELUKAST SODIUM 36860021137 Rommel Ryder MD FLUOXETINE HCL 40 MG CAPS TK 2 CS PO QAM 07/21 FLUOXETINE HCL 48054387746 Rommel Ryder MD WIXELA INHUB 100-50 MCG/ACT AEPB USE 1 INHALATION BY MOUTH TWICE DAILY 11/04 FLUTICASONE-SALMETE ROL 74193195766 Rommel Ryder MD TIZANIDINE HCL 2 MG TABS TAKE 1 TABLET BY MOUTH EVERY 8 HOURS NEEDED 04/01 TIZANIDINE HCL 16597520313 Rommel Ryder MD MEDROL 4 MG TBPK 1 dose pack to be taken according to instructions on package. 04/03 METHYLPREDNISOLONE 91802382025 Pamela Paz APRN, CNP BELSOMRA 20 MG TABS 1 orally QHS at 11:45pm for 12am bedtime 07/30 SUVOREXANT 68527445277 Vladimir Pa Jr, MD BELSOMRA 15 MG TABS 1 orally QHS at 11:45pm for 12am bedtime (free 10 tab trial) 07/30 SUVOREXANT [id number] Vladimir Pa Jr, MD BELSOMRA 20 MG TABS 1 orally QHS at 11:45pm for 12am bedtime (free 10 tab trial) 07/30 SUVOREXANT [id number] Vladimir Pa Jr, MD BELSOMRA 15 MG TABS 1 orally QHS at 11:45pm for 12am bedtime (free 10 tab trial) 07/30 SUVOREXANT [id number] Vladimir Pa Jr, MD TIZANIDINE HCL 2 MG TABS 07/16 TIZANIDINE HCL 34951603359 Vladimir Pa Jr, MD LORAZEPAM 1 MG TABS TAKE 1 TABLET BY MOUTH TWICE A DAY 05/10 LORAZEPAM 58204997041 Vladimir Pa Jr, MD MELATONIN TABLET 3mg at 9 pm 08/09 MELATONIN TABS 31828086926 Pamela Paz APRN DUMPCART DRIVER NORTREL 0.5/0.75/1-35 MG-MCG TABS 07/26 NORETHIN-ETH ESTRAD TRIPHASIC 28571851524 Pamela Paz [employer] FINISHER DUMPCART DRIVER ATIVAN 1 MG TABS 07/27 LORAZEPAM 47693363223 Vladimir Pa Jr, MD DEPAKOTE ER 500 MG [id number] 500 mg HS 10/17 DIVALPROEX SODIUM 46742419468 Vladimir Pa Jr, MD DIVALPROEX SODIUM 500 MG TBEC TAKE 1 TABLET BY MOUTH AT BEDTIME. 10/05 DIVALPROEX SODIUM 56694656764 Vladimir Pa Jr, MD LORAZEPAM 1 MG TABS TAKE 1 TABLET BY MOUTH TWICE A DAY 05/10 LORAZEPAM 73370398236 Vladimir Pa Jr, MD TIZANIDINE HCL 2 MG TABS 07/16 TIZANIDINE HCL 09460189357 Vladimir Pa Jr, MD FLUOXETINE HCL 20 MG CAPS 05/19 FLUOXETINE HCL 99607349573 Vladimir Pa Jr, MD NORTREL 0.5/0.75/1-35 MG-MCG TABS 07/26 NORETHIN-ETH ESTRAD TRIPHASIC 57126886971 Vladimir Pa Jr, MD SPIRONOLACTONE 50 MG TABS 10/17 SPIRONOLACTONE 93409502349 Vladimir Pa Jr, MD SPIRONOLACTONE 50 MG TABS 10/17 SPIRONOLACTONE 99789015594 Rommel Ryder MD DEPAKOTE ER 500 MG [id number] 500 mg HS 10/17 DIVALPROEX SODIUM 95906122703 Rommel Ryder MD MAGNESIUM CAPSULE 08/30 MAGNESIUM OXIDE CAPS 66866943767 Rommel Ryder MD L-LYSINE HCL TABS 08/30 LYSINE HCL TABS 15481485564 Rommel Ryder MD CELEXA 20 MG TABS 1 qd 10/17 CITALOPRAM HYDROBROMIDE 84087760147 Rommel Ryder MD SYMBICORT 160-4.5 MCG/ACT AERO 10/17 BUDESONIDE-FORMOTER OL FUMARATE 55557620527 Rommel Ryder MD PROVENTIL HFA 108 (90 Base) MCG/ACT INHALATION AEROSOL SOLUTION 08/05 ALBUTEROL SULFATE 21120206064 Rommel Ryder MD SYMBICORT 160-4.5 MCG/ACT AERO 10/17 BUDESONIDE-FORMOTER OL FUMARATE 96086261770 Rommel Ryder MD SINGULAIR 10 MG TABS 08/05 MONTELUKAST SODIUM 39217371409 Rommel Ryder MD ZANAFLEX 2 MG ORAL CAPSULE 1 q hs 12/09 TIZANIDINE HCL 46185414985 Rommel Ryder MD ZANAFLEX 4 MG ORAL CAPSULE 1 qhs 12/09 TIZANIDINE HCL 44066002925 Rommel Ryder MD ZANAFLEX 6 MG ORAL CAPSULE 1 @ hs 12/09 TIZANIDINE HCL 62427210881 Rommel Ryder MD KETOROLAC TROMETHAMINE 10 MG TABS 1 po q6h prn migraine not to take longer than 4 days 05/19 KETOROLAC TROMETHAMINE 69891401351 Rommel Ryder MD DEPAKOTE ER 500 MG [id number] 1000 mg PO Q HS 10/14 DIVALPROEX SODIUM 02227716687 Rommel Ryder MD LEVOTHYROXINE SODIUM 125 MCG TABS 07/26 LEVOTHYROXINE SODIUM 67376964149 Rommel Ryder MD GABAPENTIN 300 MG CAPS 300 mg PO TID 05/06 GABAPENTIN 08326854327 Rommel Ryder MD MORPHINE SULFATE 15 MG TABS 15 mg po TID PRN for pain. Do not use more than 2 days per week. 10/14 MORPHINE SULFATE 57656162224 Rommel Ryder MD VENTOLIN HFA AERS 12/09 ALBUTEROL SULFATE AERS 21858741750 Phyllis Wong RN, MS, [employer] FINISHER, DUMPCART DRIVER SYMBICORT AERO 12/09 BUDESONIDE-FORMOTER OL FUMARATE AERO 99205730685 Phyllis Wong RN, MS, [employer] BOAT FINISHER, DUMPCART DRIVER CELEXA 20 MG TABS 1 qd 10/17 CITALOPRAM HYDROBROMIDE 77488551376 Phyllis Wong RN, MS, [employer] FINISHER, DUMPCART DRIVER SINGULAIR TABS 12/09 MONTELUKAST SODIUM TABS 89171246511 Phyllis Wong RN, MS, [employer] FINISHER, DUMPCART DRIVER OMEPRAZOLE 20 MG CPDR 09/20 OMEPRAZOLE 77225561350 Phyllis Wong RN, MS, [employer] FINISHER, DUMPCART DRIVER BUSPIRONE HCL 10 MG TABS 08/05 BUSPIRONE HCL 89147871048 Phyllis Wong RN, MS, [employer] FINISHER, DUMPCART DRIVER ATIVAN 1 MG TABS 07/27 LORAZEPAM 75741421051 Phyllis Wong RN, MS, [employer] FINISHER, DUMPCART DRIVER ZANAFLEX 6 MG ORAL CAPSULE 1 @ hs 12/09 TIZANIDINE HCL 52957861296 Phyllis Wong RN, MS, [employer] FINISHER, DUMPCART DRIVER ZANAFLEX 4 MG ORAL CAPSULE 1 qhs 12/09 TIZANIDINE HCL 60172929753 Phyllis Wong RN, MS, [employer] FINISHER, DUMPCART DRIVER ZANAFLEX 2 MG ORAL CAPSULE 1 q hs 12/09 TIZANIDINE HCL 60050148757 Phyllis Wong RN, MS, [employer] FINISHER, DUMPCART DRIVER POTASSIMIN TABLET 08/30 POTASSIUM TABS 99787709311 Phyllis Wong RN, MS, [employer] FINISHER, DUMPCART DRIVER CALCIUM TABLET 08/30 CALCIUM CARBONATE-VITAMIN D TABS 54845031051 Phyllis Wong RN, MS, [employer] FINISHER, DUMPCART DRIVER SLOW RELEASE IRON TABLET EXTENDED RELEASE 08/30 FERROUS SULFATE DRIED CR-TABS 84354654869 Phyllis Wong RN, MS, [employer] FINISHER, DUMPCART DRIVER BINA-TAB 500 MG TBEC for acne 07/26 ERYTHROMYCIN BASE 91054117402 Phyllis Wong RN, MS, [employer] FINISHER, DUMPCART DRIVER PROZAC 40 MG ORAL CAPSULE 80mg daily 04/09 FLUOXETINE HCL 22439636214 Phyllis Wong RN, MS, [employer] FINISHER, DUMPCART DRIVER IBUPROFEN 800 MG TABS 2x/day as needed 07/26 IBUPROFEN [id number] Phyllis Wong RN, MS, [employer] FINISHER, DUMPCART DRIVER KETOROLAC TROMETHAMINE 10 MG TABS 1 po q6h prn migraine not to take longer than 4 days 05/19 KETOROLAC TROMETHAMINE 95440170133 Aminah Alcala RN, DUMPCART DRIVER CYCLOBENZAPRINE HCL 10 MG TABS One pill at bedtime as needed for muscle spasm 10/04 CYCLOBENZAPRINE HCL 46499842339 Yaima Ledesma DNP,[employer] FINISHER,DUMPCART DRIVER PROZAC 40 MG ORAL CAPSULE 80mg daily 04/09 FLUOXETINE HCL [id number] Yaima Ledesma DNP,[employer] BO[employer] FINISHER,DUMPCART DRIVER LORAZEPAM 1 MG TABS 3x/day 07/26 LORAZEPAM 68195349032 Vladimir Pa Jr, MD MORPHINE SULFATE 15 MG TABS 15 mg po TID PRN for pain. Do not use more than 2 days per week. 10/14 MORPHINE SULFATE 33124017177 Rommel Ryder MD DEPAKOTE ER 500 MG [id number] 1000 mg PO Q HS 10/14 DIVALPROEX SODIUM 48248131174 Rommel Ryder MD CYCLOBENZAPRINE HCL 10 MG TABS One pill at bedtime as needed for muscle spasm 10/04 CYCLOBENZAPRINE HCL [id number] Rommel Ryder MD CYCLOBENZAPRINE HCL 10 MG TABS Take one pill every evening 07/26 CYCLOBENZAPRINE HCL 29953075239 Rommel Ryder MD L-LYSINE HCL TABS 08/30 LYSINE HCL TABS 37800099639 Yaima Ledesma DNP,[employer] FINISHER,DUMPCART DRIVER MAGNESIUM CAPSULE 08/30 MAGNESIUM OXIDE CAPS 14622990748 Yaima Ledesma DNP,[employer] FINISHER,DUMPCART DRIVER POTASSIMIN TABLET 08/30 POTASSIUM TABS [id number] Yaima Ledesma DNP,[employer] FINISHER,DUMPCART DRIVER B COMPLEX ORAL TABLET 08/30 B COMPLEX VITAMINS 46859441805 Yaima Ledesma DNP,[employer] FINISHER,DUMPCART DRIVER VITAMIN D CAPS 4000u 08/30 CHOLECALCIFEROL CAPS [id number] Yaima Ledesma DNP,[employer]AT FINISHER,DUMPCART DRIVER CALCIUM TABLET 08/30 CALCIUM CARBONATE-VITAMIN D TABS [id number] Yaima Ledesma DNP,[employer] FINISHER,DUMPCART DRIVER DEPAKOTE ER 500 MG [id number] One pill daily 08/30 DIVALPROEX SODIUM 15194459738 Yaima Ledesma DNP,[employer] FINISHER,DUMPCART DRIVER FERROUS SULFATE 324 MG TBEC 07/26 FERROUS SULFATE [id number] Yaima Ledesma DNP,[employer] FINISHER,DUMPCART DRIVER SLOW RELEASE IRON TABLET EXTENDED RELEASE 08/30 FERROUS SULFATE DRIED CR-TABS [id number] Yaima Ledesma DNP,[employer] FINISHER,DUMPCART DRIVER MULTIVITAMINS TABS 07/26 MULTIPLE VITAMIN [id number] Yaima Ledesma DNP,[employer] FINISHER,DUMPCART DRIVER FERROUS SULFATE 324 MG TBEC 07/26 FERROUS SULFATE [id number] Yaima Ledesma DNP,[employer] BOAT FINISHER,DUMPCART DRIVER BINA-TAB 500 MG TBEC for acne 07/26 ERYTHROMYCIN BASE 02255896680 [facility] DNP,[employer] FINISHER,DUMPCART DRIVER LEVOTHROID 75 MCG TABS daily 07/26 LEVOTHYROXINE SODIUM [id number] Yaima Lozanoigel DNP,[employer] FINISHER,DUMPCART DRIVER LORAZEPAM 1 MG TABS 3x/day 07/26 LORAZEPAM [id number] Yaima Lozanoigel DNP,[employer] BO[employer] FINISHER,DUMPCART DRIVER PROZAC 40 MG ORAL CAPSULE daily 07/26 FLUOXETINE HCL [id number] [facility] DNP,[employer] FINISHER,DUMPCART DRIVER IBUPROFEN 800 MG TABS 2x/day as needed 07/26 IBUPROFEN [id number] [facility] DNP,[employer] FINISHER,DUMPCART DRIVER MEDROL 4 MG TBPK Take as directed 03/17 METHYLPREDNISOLONE [id number] [facility] EDYTA,[employer] BOAT FINISHER,DUMPCART DRIVER ZOFRAN ODT 4 MG ORAL TABLET DISINTEGRATING 1 PO Q 6-8 hr prn nausea and vomiting with migraine 03/27 ONDANSETRON [id number] [facility] DNP,[employer] FINISHER,DUMPCART DRIVER CYCLOBENZAPRINE HCL 10 MG TABS Take one pill every evening 07/26 CYCLOBENZAPRINE HCL [id number] [facility] EDYTA,[employer] FINISHER,DUMPCART DRIVER GABAPENTIN CAPS 900 mg PO BID and 600 mg PO in the afternoon. 05/06 GABAPENTIN CAPS 99374461524 Rommel Ryder MD GABAPENTIN CAPS 600 MG PO TID 03/25 GABAPENTIN CAPS 80345046855 Rommel Ryder MD MEDROL 4 MG TBPK Take as directed 03/17 METHYLPREDNISOLONE 34384286400 Rommel Ryder MD GABAPENTIN CAPS 300 MG PO TID 03/27 GABAPENTIN CAPS 08830457617 Rommel Ryder MD ZOFRAN ODT 4 MG ORAL TABLET DISINTEGRATING 1 PO Q 6-8 hr prn nausea and vomiting with migraine 03/27 ONDANSETRON 10025417270 Rommel Ryder MD GABAPENTIN CAPS 2 qhs 03/22 GABAPENTIN CAPS 79312972162 Dahlia Henry LPN VICODIN 5-500 MG TABS 1 to 2 tabs PO q 6 hours PRN for headache 12/08 HYDROCODONE-ACETAMI NOPHEN 67885415761 Dalhia Henry LPN ZONEGRAN 100 MG CAPS 200 mg AM - 300 mg HS 01/20 ZONISAMIDE 52102560238 Dahlia Henry LPN GABAPENTIN CAPS 300 MG PO Q HS x 1 WEEK, 300 MG PO BID x 1 WEEK, 300 MG PO TID 09/20 GABAPENTIN CAPS 65819533267 Rommel Ryder MD ZONEGRAN 100 MG CAPS 200 mg AM - 300 mg HS 06/25 ZONISAMIDE 41414931180 Rommel DUMONT ODT 4 MG ORAL TABLET DISINTEGRATING 1 po qw6-8hr prn nausea and vomiting with migraine 12/08 ONDANSETRON [id number] Aminah Alcala RN, DUMPCART DRIVER MORPHINE SULFATE 15 MG TABS 15 mg po TID PRN for pain 12/08 MORPHINE SULFATE 35397462604 Aminah Alcala RN, DUMPCART DRIVER ZONEGRAN 100 MG CAPS 300mg am- 200mg pm 12/08 ZONISAMIDE 77673459357 Aminah Alcala RN, DUMPCART DRIVER ZONEGRAN 100 MG CAPS 200 mg PO BID 06/25 ZONISAMIDE 82630339561 Rommel Ryder MD VICODIN 5-500 MG TABS 1 to 2 tabs PO q 6 hours PRN for headache 12/08 HYDROCODONE-ACETAMI NOPHEN 76980654009 Rommel Ryder MD ZONEGRAN 100 MG CAPS 100 MG PO QHS x 1 week, 100 MG PO BID x 1 week, 100 mg PO Q AM and 200 mg PO Q HS x 1 week, 200 mg PO BID 11/23 ZONISAMIDE 01441668783 Rommel Ryder MD TOPAMAX 25 MG TABS 25 MG PO BID X 1 WEEK then 50 MG PO BID 10/28 TOPIRAMATE 87479430670 Rommel Ryder MD TOPAMAX 25 MG TABS 25 MG PO BID X 1 WEEK then 50 MG PO BID 10/28 TOPIRAMATE 04842200216 Rommel Ryder MD VIOXX TABS 25 MG 1 QD PRN 07/05 ROFECOXIB 94623442243 Rommel Ryder MD SOMA 350 MG TABS 1 Q HS PRN 0 07/05 CARISOPRODOL [id number] Rommel Ryder MD VIOXX TABS 25 MG 1 QD PRN 07/05 ROFECOXIB 99071642530 Valerio Zee MD SOMA 350 MG TABS 1 Q HS PRN 07/05 CARISOPRODOL 19881067739 Valerio Zee MD Medications Administered No information [...] PREDNISONE Critical No Longer Active Rasmita Paz [employer] FINISHER DUMPCART DRIVER VICODIN Unknown No Longer Active Rommel Ryder MD VICODIN Severe No Longer Active Phyllis Wong RN, MS, [employer] FINISHER, DUMPCART DRIVER PREDNISONE Critical No Longer Active Rommel Ryder MD VICODIN Critical No Longer Active Aminah Alcala RN, DUMPCART DRIVER TETRACYCLINE Critical No Longer Active Rommel Ryder [...] for D IVALPROEX EXTENDED RELEASE 500MG T [facility]_RR [id number] `DIVALPROEX EXTENDED RELEASE 500MG T`500`ME`60 Tablet`30`TYLER E 2 TABLETS BY MOUTH EVERY NIGHT AT BEDTIME``1`0` [id number]`2012 1021`[facility] COM DEV 72157*``[id number]`` B e-scripts messen manuel refill request Internal [...] Yes Consent To Release information to the [employer] (Traveler | VIP) Office Visit: MIRELA Follow Up 11/19/20 MAIL [...] Nerve Bloc k and Trigger Point Injections CPT-4023275 Occipital nerve bloc k (Greater ONB) bilateral CPT-20958 Trigger point inj (3+ musc) CPT-J1100 Dexamethasone -- 15 mg 02/16 ORDERS Occipital Nerve Bloc k and Trigger Point Injections ORDERS TSH ORDERS T4 Free Direct ORDERS Ammonia ORDERS Occipital Nerve Bloc k and Trigger Point Injections CPT-61754 Trigger point inj (3+ musc) CPT-1800939 Occipital nerve bloc k (Greater ONB) bilateral CPT-J1100 Dexamethasone -- 15 mg 11/24 ORDERS Follow up MIRELA ORDERS We will contact you with test results 202 03/21/08 [facility]-[id number] Documentation of current medicatio ns ORDERS Occipital Nerve Bloc k and Trigger Point Injections CPT-20416 Trigger point inj (3+ musc) CPT-5572364 Occipital nerve bloc k (Greater ONB) bilateral CPT-J1100 Dexamethasone -- 10 mg 08/06 [id number] Consult CPT-17995 Trigger point inj (3+ musc) CPT-7967624 Occipital nerve bloc k (Greater ONB) bilateral CPT-J1100 Dexamethasone - 4 mg ORDERS Occipital Nerve Bloc k and Trigger Point Injections CPT-51577 Trigger point inj (3+ musc) CPT-5334522 Occipital nerve bloc k (Greater ONB) bilateral CPT-J1100 Dexamethasone -- 10 mg 11/11 ORDERS Dysport Injection ORDERS Occipital Nerve Bloc k and Trigger Point Injections ORDERS Occipital Nerve Bloc k and Trigger Point Injections CPT-98145 Trigger point inj (3+ musc) CPT-8858957 Occipital nerve bloc k (Greater ONB) bilateral ORDERS Migraine Infusion Or gregoria Set #1: Depacon/Solu-Medrol/Toradol CPT-J1100 Dexamethasone - 8mg CPT-19847 Trigger point inj (3+ musc) CPT-1360988 Occipital nerve bloc k (Greater ONB) bilateral ORDERS Occipital Nerve Bloc k and Trigger Point Injections ORDERS Follow up ORDERS Migraine Infusion Or gregoria Set #1: Depacon/Solu-Medrol/Toradol CPT-8921043 Occipital nerve block (Greater ONB) x2 20 02/05/25 CPT-41443 Trigger point inj (3+ musc) ORDERS Follow up CPT-49942 Trigger point inj (3+ musc) CPT-6294248 Occipital nerve block x2 202 0 CPT-J1100 Dexamethasone - 8mg ORDERS Follow up ORDERS Sleep Consult SCT-[id number] Other Referral CPT-E6701A Dysport 500u - 1 vial 04/08 CPT-62411 Chem - Face/Neck - Migraine or Headache 2 ORDERS Follow up ORDERS Patient Instructions CPT-2117210 Occipital nerve block x2 201 11/19/22 CPT-13519 Trigger point inj (3+ musc) CPT-J1100 Dexamethasone SCT-[id number] Other Referral ORDERS Follow up CPT-T1623B Dysport 500u - 1 vial 0 10/30 CPT-85378 Chem - Face/Neck - Migraine or Headache 2 ORDERS Follow up ORDERS Patient Instructions CPT-82448 Trigger point inj (3+ musc) CPT-7185563 Occipital nerve block x2 201 11/17/00 CPT-J1100 Dexamethasone -- 15 mg 09/10 [id number] Documentation of current medicatio ns ORDERS Patient Instructions ORDERS Patient Instructions [id number] Other Referral ORDERS Follow up CPT-K1500Z Dysport 500u - 1 vial 07/16 CPT-98281 Chem - Face/Neck - Migraine or Headache 2 ORDERS Follow up ORDERS Follow up ORDERS Instructions for Staff 06/06 CPT-6074589 Occipital nerve block x2 201 11/13/26 CPT-32325 Trigger point inj (1-2 musc) CPT-J1100 Dexamethasone -- 15 mg 06/06 CPT-N7958Q Dysport 500u - 1 vial 2019/0 04/04 CPT-93580 Chem - Face/Neck - Migraine or Headache 2 CPT-D5149Z Dysport 500u - 1 vial 03/24 CPT-06679 Chem - Face/Neck - Migraine or Headache 2 ORDERS Follow up ORDERS Follow up ORDERS Migraine Order Set # 1: Depacon/Solu-Medrol/Toradol [id number] Other Referral ORDERS Patient Instructions ORDERS Follow up [id number] Documentation of current medicatio ns ORDERS Patient Instructions ORDERS Follow up ORDERS Other Test CPT-F1536Z Dysport 500u - 1 vial 201810/16 CPT-16611 Chem - Face/Neck - Migraine or Headache 2 SCT-[id number] Documentation of current medicatio ns ORDERS Patient Instructions [id number] Other Referral ORDERS Patient Instructions ORDERS Ferritin Serum SCT-[id number] Documentation of current medicatio ns SCT-[id number] Other Referral ORDERS Follow up SCT-[id number] Other Referral CPT-74239 PSG, 4+ parameters w / tech - 6yrs or older ([id number]) ORDERS Ammonia ORDERS Patient Instructions SCT-[id number] Other Referral SCT-[id number] Documentation of current medicatio ns ORDERS ALT (SGPT) ORDERS AST (SGOT) ORDERS CBC no Diff/ Platelet 07/27 ORDERS TSH ORDERS Vitamin B12 ORDERS Follow up CPT-H4795G Dysport 500u - 1 vial 07/25 CPT-81552 Chem - Face/Neck - Migraine or Headache 2 ORDERS Follow up CPT-J6117H Dysport 500u - 1 vial 05/02 CPT-11932 Chem - Face/Neck - Migraine or Headache 2 CPT-N2531V Dysport 500u - 1 vial 04/09 CPT-71997 Chem - Face/Neck - Migraine or Headache 2 ORDERS Follow up ORDERS Follow up CPT-F7589M Dysport 500u - 1 vial 11/10 CPT-33357 Chem - Face/Neck - Migraine or Headache 2 ORDERS Migraine Order Set # 1: Depacon/Solu-Medrol/Toradol ORDERS Follow up CPT-53122 Brief emotional/behavioral assessment 201 09/17/06 CPT-D4655T Dysport 300u - 1 vial 03/15 CPT-10897 Chem - Face/Neck - Migraine or Headache 2 [id number] Documentation of current medicatio ns [id number] Documentation of current medicatio ns CPT-T6283F * Depacon 1000mg (enter units) CPT-J2930 * Solu-Medrol, 1000 mg / 1g (x8) CPT-J2405 * Zofran 1mg (enter units) 2 CPT-W3645Y * Toradol 60mg (enter units) CPT-N4387b * Normal Saline 200 cc 01/15 CPT-38052 IV infusion - Primar y Indication (16 min - 1 hr 30 min ) CPT-47102 Each add IVP of new drug/ Repeats if 30m apart/Each Add Tere Ind drug 15m or less CPT-J2930 * Solu-Medrol, 1000 mg / 1g (x8) CPT-A1003Z * Depacon 1000mg (enter units) CPT-J2405 * Zofran 1mg (enter units) 2 CPT-J1885 * Toradol 15mg (enter units) CPT-Y1646h * Normal Saline 200 cc 10/04 CPT-24433 IV infusion - Primar y Indication (16 min - 1 hr 30 min ) CPT-68730 Each add IVP of new drug/ Repeats if 30m apart/Each Add Tere Ind drug 15m or less CPT-02214 MRI Cervical W/O CPT-44058 MRI Cervical W/O CPT-J2930 * Solu-Medrol, 1000 mg / 1g (x8) CPT-J0738W * Depacon 1000mg (enter units) CPT-J2405 * Zofran 1mg (enter units) 2 CPT-J1885 * Toradol 15mg (enter units) CPT-Y8147G * Normal Saline 100 cc 02/07 CPT-32605 IV infusion - Primar y Indication (16 min - 1 hr 30 min ) CPT-62141 Each add IVP of new drug/ Repeats if 30m apart/Each Add Tere Ind drug 15m or less CPT-J2930 * Solu-Medrol, 1000 mg / 1g (x8) CPT-J2405 * Zofran 1mg (enter units) 2 CPT-J1885 * Toradol 15mg (enter units) CPT-F0458W * Normal Saline 100 cc 01/10 CPT-16116 IV infusion - Primar y Indication (16 min - 1 hr 30 min ) CPT-31502 Each add IVP of new drug/ Repeats if 30m apart/Each Add Tere Ind drug 15m or less CPT-45045 Multiple Sleep Latency Testing (36196) 20 01/19/26 CPT-57227 Polysomnography, 4+ parameters w/ tech (08308) CPT-J2930 * Solu-Medrol, 1000 mg / 1g (x8) CPT-L1003Z * Normal Saline 100 cc 11/22 CPT-J2405 * Zofran 1mg (enter units) 2 CPT-Y4593T * Depacon 500 mg CPT-84201 IV infusion - Primar y Indication (16 min - 1 hr 30 min ) CPT-56138 Each add IVP of new drug/ Repeats if 30m apart/Each Add Tere Ind drug 15m or less CPT-G8553 eRX Charge CPT-J2930 * Solu-Medrol, 1000 mg / 1g (x8) CPT-S3728P * Depacon 1000mg (enter units) CPT-J1885 * Toradol 15mg (enter units) CPT-U4893F * Normal Saline 100 cc 08/16 CPT-99307 IV infusion - Primar y Indication (16 min - 1 hr 30 min ) CPT-92298 Each add IVP of new drug/ Repeats if 30m apart/Each Add Tere Ind drug 15m or less CPT-D9627S * Depacon 500 mg CPT-J2930 * Solu-Medrol, 1000 mg / 1g (x8) CPT-J1885 * Toradol 15mg (enter units) CPT-J2405 * Zofran 1mg (enter units) 2 CPT-33797 IV infusion - Primar y Indication (16 min - 1 hr 30 min ) CPT-54967 Each add IVP of new drug/ Repeats if 30m apart/Each Add Tere Ind drug 15m or less CPT-35306 Each add IVP of new drug/ Repeats if 30m apart/Each Add Tere Ind drug 15m or less CPT-M7323G * Depacon 1000mg (enter units) CPT-J2930 * Solu-Medrol, 1000 mg / 1g (x8) CPT-J6575e * Normal Saline 200 cc 07/14 CPT-J2405 * Zofran 1mg (enter units) 2 CPT-J1885 * Toradol 15mg (enter units) CPT-09820 IV infusion - Primar y Indication (16 min - 1 hr 30 min ) CPT-71729 Infusion -- Tere Venita cation for 15 min or less/Single Push CPT-J2930 * Solu-Medrol, 1000 mg / 1g (x8) CPT-G1010J * Depacon 1000mg (enter units) CPT-J1885 * Toradol 15mg (enter units) CPT-K0319U * Normal Saline 100 cc 07/05 CPT-76563 IV infusion - Primar y Indication (16 min - 1 hr 30 min ) CPT-97979 Each add IVP of new drug/ Repeats if 30m apart/Each Add Tere Ind drug 15m or less CPT-J2930 * Solu-Medrol, 1000 mg / 1g (x8) CPT-L0616Z * Depacon 1000mg (enter units) CPT-J2405 * Zofran 1mg (enter units) 2 CPT-J1885 * Toradol 15mg (enter units) CPT-W0842T * Normal Saline 100 cc (enter units) 2010 CPT-86704 Infusion -- Tere Venita cation for 15 min or less/Single Push CPT-26358 Each add IVP of new drug/ Repeats if 30m apart/Each Add Tere Ind drug 15m or less CPT-J2930 * Solu-Medrol, 1000 mg / 1g (x8) CPT-D4964F * Depacon 1000mg (enter units) CPT-J1885 * Toradol 15mg (enter units) CPT-K4195L * Normal Saline 100 cc 04/26 CPT-92214 IV infusion - Primar y Indication (16 min - 1 hr 30 min ) CPT-72004 Infusion -- Tere Venita cation for 15 min or less ONLY/Single Push ONLY CPT-98540 IV Infusion - Each A ddtl Tere Indication Med (16 min or more) - (enter units) CPT-J2930 * Solu-Medrol, 1000 mg / 1g (x8) CPT-I6570G * Depacon 1000mg (enter units) CPT-J2405 * Zofran 1mg (enter units) 2 CPT-J1885 * Toradol 15mg (enter units) CPT-Z5977G * Normal Saline 100 cc 03/24 CPT-92113 Infusion -- Tere Venita cation for 15 min or less ONLY/Single Push ONLY CPT-34459 IV infusion - Primar y Indication (16 min - 1 hr 30 min ) CPT-92317 IV Infusion - Each A ddtl Tere Indication Med (16 min or more) - (enter units) CPT-J1100 Dexamethasone -- 10 mg 03/11 CPT-9824007 Occipital nerve block x2 201 CPT-J1100 Dexamethasone - 4 mg CPT-1408712 Occipital nerve block x2 201 CPT-J1100 Dexamethasone - 4 mg CPT-3709478 Occipital nerve block x2 201 CPT-J2930 * Solu-Medrol, 1000 mg / 1g (x8) CPT-J4482K * Depacon 1000mg (enter units) CPT-J2405 * Zofran 1mg (enter units) 2 CPT-J1885 * Toradol 15mg (enter units) CPT-G7814X * Normal Saline 100 cc 12/04 CPT-16282 IV infusion - Primar y Indication (16 min - 1 hr 30 min ) CPT-76987 Each add IVP of new drug/ Repeats if 30m apart/Each Add Tere Ind drug 15m or less CPT-J2930 * Solu-Medrol, 1000 mg / 1g (x8) CPT-I9172B * Depacon 1000mg (enter units) CPT-20247 IV infusion - Primar y Indication (16 min - 1 hr 30 min ) CPT-83751 IV Infusion - Each A ddtl Tere Indication Med (16 min or more) - (enter units) CPT-O5649T * Normal Saline 200 cc 11/10 CPT-J2405 * Zofran 1mg (enter units) 2 CPT-J1885 * Toradol 15mg (enter units) CPT-63377 MRI Brain (With & Without Contrast) 11/05 A9579 ProHance Pedrito-based MR Contrast, 20 ml via l CPT-J2930 * Solu-Medrol, 1000 mg / 1g (x8) CPT-E3232H * Depacon 1000mg (enter units) CPT-J1885 * Toradol 15mg (enter units) CPT-B7771P * Normal Saline 100 cc 10/28 CPT-48624 Each add IVP of new drug/ Repeats if 30m apart/Each Add Tere Ind drug 15m or less CPT-22931 IV infusion - Primar y Indication (16 [...] No information available. Advance Directives No information available."
== END 2024-12-25 18:17 | disposition left against medical advice (07) ==
PROVIDERS: Emergency Provider Emergency Medicine Emergency Medical Services; PCP Family Medicine
DX: Z53.29 Procedure and treatment not carried out because of patient's decision for other reasons (principal)
CPT/HCPCS: 99281; 99284

== ENCOUNTER 2024-12-31 01:34 | Emergency (ER) | payer MEDICARE, OTHER, SELFPAY ==
--- OUTSIDE RECORDS SUMMARY | 2011-10-24 06:41 | XMS_ITS | Continuity of Care Document ---
Author Organization [facility] [place] Address [address] [place] [address] Phone Care Team Providers Care Tray Drier Name Role Phone Panchito Jones MD Unavailable Unavailable Advance Directives Directive Yes / No Effective Date File Name No Information Encounters Encounter Description Practice Location Reason(s) For Visit Diagnoses Date Provider Providers Copied on Encounter COURT [place], [address] [facility], [place], [place], [address], [place] tel:[phone] [facility] No Information Karen Flanagan. [address] [facility] [address], [place], [address], [place]. tel:[phone] Referring Provider: Rommel Ryder MD, [address] [facility] [address], [place], [address]. tel:[phone] Family History Family Member Type Diagnosis Age At Onset No Information Payers Payer name Insurance type Covered libertarian ID Authoriza tion(s) No Information Social History [...]
--- OUTSIDE RECORDS SUMMARY | 2011-10-24 06:41 | XMS_ITS | Continuity of Care Document ---
Author Organization [facility] [place] Address [address] [place] [address] Phone Care Team Providers Care Network Management Specialist Name Role Phone Panchito Jones MD Unavailable Unavailable Advance Directives Directive Yes / No Effective Date File Name No Information Encounters Encounter Description Practice Location Reason(s) For Visit Diagnoses Date Provider Providers Copied on Encounter COURT [place], [address] [facility] [address] [facility] [address], [place], [place], [id number], [place] tel:[phone] [facility] No Information Karen Flanagan. [address] [facility] [address], [place], [address], [place]. tel:[phone] Referring Provider: Rommel Ryder MD, [address] [facility] [address], [place], [address]. tel:[phone] Family History Family Member Type Diagnosis Age At Onset No Information Payers Payer name Insurance type Covered constitution party ID Authoriza tion(s) No Information Social [...]
--- OUTSIDE RECORDS SUMMARY | 2024-12-31 01:37 | XMS_ITS | Patient Health Record ---
Author Organization [facility] - Primary Address [address] [place] [id number] Care Team Providers Care Senior Chemical Engineer Name Role Phone Different, PCP Primary Care [...] Status Risk Notes Problem Posttraumatic stress disorder (83837639) Post-traumatic stress disorder, chronic (F43.12) Active confirmed Problem Headache (71379582) Headache, unspecified (R51.9) Active confirmed Plan Of Treatment No Information Insurance Providers Payer Name Payer Address Payer Phone Subscriber Number Group Number Insured Name Patient Relationship to Insured Coverage Start Date Coverage End Date [employer] [address] [address] [place] [address] [id number] Korina Soto Self - patient is the insured Medical (General) History Medical History History ICD Code anxiety PTSD sleep apnea Hypothyroidism depression insomnia allergies parkinson's disease Surgical History Surgery Date(Month/Year) colonoscopy 11/2022
[2024-12-31 01:47] VITALS: BP 127/66; PULSE 85; RESP 20; TEMP 36.2; O2SAT 99; BMI 27.9
[2024-12-31 02:14] LABS: Appearance Urine Clear (Clear)
[2024-12-31 02:27] LABS: Ur HCG Qualitative* Negative (Negative)
--- NOTE | 2024-12-31 02:38 | ED.GENADULT ---
HPI - General Adult General Chief complaint: Unspecified Complaint, Adult Stated complaint: smell coming from her body Time Seen by Provider: 12/31/24 01:54 Source: patient Mode of arrival: ambulatory Limitations: no limitations History of Present Illness HPI narrative: 54-year-old female presenting today with concerns that there is a did baby or animal inside her abdomen and that she is septic. Patient states that she has a D&C to ?get it out?. Patient states that her urine has been smelling bad in that her gas does not smell normal. She denies diarrhea. No abdominal pain. No fevers or chills. No shortness of breath or dizziness. No nausea or vomiting. Patient does have a history of mental health issues. Patient tells me that she does feel safe at home and does not have any thoughts of self-harm, no suicidal ideation. Related Data Home Medications ?Medication ?Instructions ?Recorded ?Confirmed Lactobacillus acidophilus 10 mg PO QDAY 12/23/21 03/19/23 buspirone 5 mg tablet 30 mg PO BID 12/23/21 03/19/23 cholecalciferol (vitamin D3) 50 2,000 unit PO DAILY 12/23/21 03/19/23 mcg (2,000 unit) tablet divalproex 125 mg tablet,delayed 500 mg PO QHS 12/23/21 03/19/23 release epinephrine 0.3 mg/0.3 mL 0.3 mg IM .As Needed PRN 12/23/21 03/19/23 injection, auto-injector fluoxetine 20 mg capsule 40 mg PO DAILY 12/23/21 07/06/23 fluticasone propionate 230 1 inh inhalation BID 12/23/21 03/19/23 mcg-salmeterol 21 mcg/actuation HFA inhaler gabapentin 300 mg capsule 300 mg PO Q8H 12/23/21 07/06/23 levothyroxine 125 mcg tablet 125 mcg PO DAILY 12/23/21 07/06/23 lysine 500 mg tablet 500 mg PO Q12H 12/23/21 07/06/23 melatonin 3 mg capsule 6 mg PO .Bedtime as needed PRN 12/23/21 03/19/23 montelukast 10 mg tablet 10 mg PO .Bedtime 12/23/21 03/19/23 omeprazole 20 mg capsule,delayed 20 mg PO BID 12/23/21 07/06/23 release tizanidine 2 mg capsule 2 mg PO Q8H PRN 12/23/21 03/19/23 albuterol sulfate 90 mcg/actuation 2 inh inhalation Q4H PRN 02/22/22 07/06/23 aerosol inhaler benzoyl peroxide 10 % topical 1 applic topical DAILY 02/22/22 03/19/23 cleanser clonidine HCl 0.1 mg tablet 0.1 mg PO Q12H 02/22/22 03/19/23 fexofenadine 180 mg tablet 180 mg PO DAILY 02/22/22 07/06/23 (Allergy Relief (fexofenadine)) hydroxyzine HCl 25 mg tablet 25 mg PO Q6H PRN 02/22/22 03/19/23 ipratropium 0.5 mg-albuterol 3 mg 3 ml inhalation Q6-8H PRN 02/22/22 03/19/23 (2.5 mg base)/3 mL nebulization soln mometasone 50 mcg/actuation nasal 2 spray intranasal Q12H 02/22/22 03/19/23 spray buspirone 30 mg tablet 30 mg PO BID 03/19/23 07/06/23 ketoconazole 2 % shampoo topical DAILY 03/19/23 ondansetron HCl 8 mg tablet mg PO 03/19/23 tizanidine 2 mg tablet 2 mg PO 3XD 03/19/23 07/06/23 clindamycin phosphate 1 % topical topical 07/06/23 solution clobetasol 0.05 % scalp solution 1 applic topical BID 07/06/23 07/06/23 fluoxetine 40 mg capsule mg PO 07/06/23 fluticasone 100 mcg-salmeterol 50 inhalation 07/06/23 mcg/dose blistr powdr for inhalation (Wixela Inhub) primidone 50 mg tablet 50 mg PO QPM 07/06/23 07/06/23 sulfamethoxazole 800 1 tab PO BID 07/06/23 07/06/23 mg-trimethoprim 160 mg tablet Previous Rx's ?Medication ?Instructions ?Recorded methylprednisolone 4 mg tablet 4 - 12 mg (1 - 3 x 4 mg) PO DAILY 03/20/23 #11 tabs amoxicillin 875 mg-potassium 1 tab PO BID #20 tabs 11/12/23 clavulanate 125 mg tablet methylprednisolone 4 mg tablets in See Rx Instructions PO .COMPLEX 11/12/23 a dose pack (Medrol (Murray)) #21 ea amoxicillin 500 mg tablet 500 mg PO TID #15 tabs 12/22/23 ketoconazole 2 % shampoo 1 applic topical 3XW #120 mL 12/22/23 prednisone 20 mg tablet 20 mg PO DAILY #5 tabs 12/22/23 Allergies Allergy/AdvReac Type Severity Reaction Status Date / Time hydrocodone Allergy Mild Rash Verified 12/03/24 02:54 hydromorphone (From Dilaudid) Allergy Mild itching Verified 12/03/24 02:54 pollen extracts Allergy Mild itching Verified 12/03/24 02:54 sulfamethoxazole (From Allergy Mild Rash Verified 12/03/24 02:54 Bactrim) trimethoprim (From Bactrim) Allergy Mild Rash Verified 12/03/24 02:54 wheat Allergy Mild gluten Verified 12/03/24 02:54 intolerance quetiapine (From Seroquel) Allergy Unknown Verified 12/03/24 02:54 oxycodone Allergy Verified 12/03/24 02:54 prednisone Allergy itching Verified 12/03/24 02:54 Tetracyclines Allergy Rash Verified 12/03/24 02:54 tramadol Allergy loss of Verified 12/03/24 02:54 memory trazodone Allergy memory loss Verified 12/03/24 02:54 venlafaxine Allergy sweating Verified 12/03/24 02:54 potassium sparing diuretics Allergy Uncoded 02/23/22 00:18 Review of Systems Status of ROS: Reports: 10 or more systems reviewed and unremarkable except as noted in History and below [facility] Medical History MRSA (methicillin resistant staph aureus) culture positive ?Z22.322 - Carrier or suspected carrier of Methicillin resistant Staphylococcus aureus (ICD-10) Abnormal LFTs ?R79.89 - Other specified abnormal findings of blood chemistry (ICD-10) Hiatal hernia ?K44.9 - Diaphragmatic hernia without obstruction or gangrene (ICD-10) Seasonal allergic rhinitis due to pollen ?J30.1 - Allergic rhinitis due to pollen (ICD-10) PTSD (post-traumatic stress disorder) ?F43.10 - Post-traumatic stress disorder, unspecified (ICD-10) Chronic sinusitis ?J32.9 - Chronic sinusitis, unspecified (ICD-10) DDD (degenerative disc disease), cervical ?M50.30 - Other cervical disc degeneration, unspecified cervical region (ICD-10) Adjustment disorder with depressed mood ?F43.21 - Adjustment disorder with depressed mood (ICD-10) Tachycardia, unspecified ?R00.0 - Tachycardia, unspecified (ICD-10) Reflux esophagitis ?K21.00 - Gastro-esophageal reflux disease with esophagitis, without bleeding (ICD-10) KEE (nonalcoholic steatohepatitis) ?K75.81 - Nonalcoholic steatohepatitis (KEE) (ICD-10) Mixed hyperlipidemia ?E78.2 - Mixed hyperlipidemia (ICD-10) Migraine ?G43.909 - Migraine, unspecified, not intractable, without status migrainosus (ICD-10) Major depression, recurrent ?F33.9 - Major depressive disorder, recurrent, unspecified (ICD-10) Hypothyroidism, acquired ?E03.9 - Hypothyroidism, unspecified (ICD-10) Generalized anxiety disorder ?F41.1 - Generalized anxiety disorder (ICD-10) Diaphragmatic hernia without mention of obstruction or gangrene ?K44.9 - Diaphragmatic hernia without obstruction or gangrene (ICD-10) Cystic acne ?L70.0 - Acne vulgaris (ICD-10) Chondromalacia of both patellae ?M22.41 - Chondromalacia patellae, right knee (ICD-10) ?M22.42 - Chondromalacia patellae, left knee (ICD-10) Celiac disease ?K90.0 - Celiac disease (ICD-10) Anxiety ?F41.9 - Anxiety disorder, unspecified (ICD-10) Anemia ?D64.9 - Anemia, unspecified (ICD-10) Tobacco abuse ?Z72.0 - Tobacco use (ICD-10) Palpitations ?R00.2 - Palpitations (ICD-10) Osteoarthritis of patellofemoral joints of both knees ?M17.0 - Bilateral primary osteoarthritis of knee (ICD-10) Methicillin resistant Staphylococcus aureus infection ?A49.02 - Methicillin resistant Staphylococcus aureus infection, unspecified site (ICD-10) History of methicillin resistant Staphylococcus aureus infection ?Z86.14 - Personal history of Methicillin resistant Staphylococcus aureus infection (ICD-10) Gastroesophageal reflux disease ?K21.9 - Gastro-esophageal reflux disease without esophagitis (ICD-10) Dermatitis ?L30.9 - Dermatitis, unspecified (ICD-10) Chronic low back pain ?M54.50 - Low back pain, unspecified (ICD-10) ?G89.29 - Other chronic pain (ICD-10) Asthma ?J45.909 - Unspecified asthma, uncomplicated (ICD-10) Asthma (11/27/12) ?J45.909 - Unspecified asthma, uncomplicated (ICD-10) Surgical History [place] teeth extracted ?K08.409 - Partial loss of teeth, unspecified cause, unspecified class (ICD-10) Social History Smoking Status: Current every day smoker What tobacco products do you use: cigarettes Smoking packs per day: 0.5 Smoking cigarettes per day: 10.0 Years smoked: 30 Smoking pack-years: 15.00 Do you use any of these nicotine containing products: E-Cigarettes and Vaping Products Second hand tobacco smoke exposure: No How often do you have a drink containing alcohol: monthly or less How often do you have six or more drinks on one occasion: Never AUDIT-C Alcohol total score: 1 Non-prescribed substance use: marijuana (any form) service: Yes Exam Narrative: Exam Narrative: Well-nourished well-developed patient in no acute distress, slightly disheveled. Alert and oriented x3. She is cooperative. Mood and affect are appropriate. Thoughts are goal oriented and but not rational. Patient is exhibiting some magical thinking. Patient speaks in full sentences without needing to catch their breath. HEENT: Normocephalic atraumatic. Pupils are equally round reactive to light. Extraocular muscles are intact. Conjunctivae are moist without any icterus noted. Moist mucous membranes. Cardiovascular: Heart is regular rate and rhythm. Lungs: Clear to auscultation bilaterally no wheezes rhonchi or rales are appreciated. Abdomen: Soft and nontender nondistended with normal bowel sounds. No guarding or rebound. No masses or organomegaly appreciated. Extremities: Bilateral lower extremities are without edema. Const: Vital Signs, click to edit/add: Vital Signs - 24 hr 12/31/24 01:47 Temperature 97.1 F L Pulse Rate [Right Pulse Oximeter] 85 Respiratory Rate 20 Blood Pressure [Ri ght Upper Arm] 127/66 Pulse Oximetry 99 Oxygen Delivery Me thod Room Air Course Course ED Course: Discussed with her doing a UA which she is agreeable to. UA was unremarkable. test is negative. Patient requested an abdominal ultrasound so I did go ahead and do a brief ultrasound which showed a normal bladder and bowel gas. This seemed to reassure the patient. Vital Signs Vital signs: Initial Vital Signs Temperature 97.1 F L 12/31/24 01:47 Temperature Source Temporal Artery Scan 12/31/24 01:47 Pulse Rate 85 12/31/24 01:47 Respiratory Rate 20 12/31/24 01:47 Blood Pressure 127/66 12/31/24 01:47 Blood Pressure Mean 86 12/31/24 01:47 Blood Pressure Position Semi-Fowlers 12/31/24 01:47 Pulse Oximetry 99 12/31/24 01:47 Oxygen Delivery Method Room Air 12/31/24 01:47 Vital Signs Temperature 97.1 F L 12/31/24 01:47 Pulse Rate 85 12/31/24 01:47 Respiratory Rate 20 12/31/24 01:47 Blood Pressure 127/66 12/31/24 01:47 Pulse Oximetry 99 12/31/24 01:47 Oxygen Delivery Method Room Air 12/31/24 01:47 Temperature 97.1 F L 12/31/24 01:47 Pulse Rate 85 12/31/24 01:47 Respiratory Rate 20 12/31/24 01:47 Blood Pressure 127/66 12/31/24 01:47 Pulse Oximetry 99 12/31/24 01:47 Oxygen Delivery Method Room Air 12/31/24 01:47 Medical Decision Making MDM Narrative Medical decision making narrative: 54-year-old female with delusions. Patient is not exhibiting any self harmful behavior. I do want her to follow up with her primary care provider. We may need to consider filing a vulnerable adult report if her behavior changes. Lab Data Labs: Lab Results 12/31/24 Range/Units 02:00 Urine Color Yellow (Yellow) Urine Appearance Clear (Clear) Urine pH 6.0 (5.0-8.5) Ur Specific [place] 1.025 (1.000-1.030) Urine Protein Trace A (Negative) Urine Glucose (UA) Negative (Negative) Urine Ketones Negative (Negative) Urine Blood Negative (Negative) Urine Nitrite Negative (Negative) Urine Bilirubin Negative (Negative) Urine Urobilinogen 0.2 (0.2-1.0) Ur Leukocyte Esterase Negative (Negative) Urine RBC 0-2 (0-2) Urine WBC 0-2 (0-5) Ur Squamous Epith Cells Few (None-Few) Amorphous Sediment Few A (None) Urine Bacteria Few A (None) Urine Mucus Moderate A (None) Urine HCG, Qual Negative (Negative) Discharge Plan Discharge Clinical Impression: Abnormal urine odor Patient Disposition: Home, Self-Care Condition: Stable Additional Instructions: You should follow-up with your primary care doctor this week. Prescriptions: No Action cholecalciferol (vitamin D3) 50 mcg (2,000 unit) tablet 2,000 unit PO DAILY fluticasone propion-salmeterol 230-21 mcg/actuation HFA aerosol inhaler 1 inh inhalation BID fluoxetine 20 mg capsule 40 mg PO DAILY lysine 500 mg tablet 500 mg PO Q12H epinephrine 0.3 mg/0.3 mL auto-injector 0.3 mg IM .As Needed PRN montelukast 10 mg tablet 10 mg PO .Bedtime omeprazole 20 mg capsule,delayed release(DR/EC) 20 mg PO BID divalproex 125 mg tablet,delayed release (DR/EC) 500 mg PO QHS levothyroxine 125 mcg tablet 125 mcg PO DAILY tizanidine 2 mg capsule 2 mg PO Q8H PRN gabapentin 300 mg capsule 300 mg PO Q8H buspirone 5 mg tablet 30 mg PO BID Lactobacillus acidophilus Capsule 10 mg PO QDAY melatonin 3 mg capsule 6 mg PO .Bedtime as needed PRN albuterol sulfate 90 mcg/actuation HFA aerosol inhaler 2 inh inhalation Q4H PRN ipratropium-albuterol 0.5 mg-3 mg(2.5 mg base)/3 mL solution for nebulization 3 ml inhalation Q6-8H PRN clonidine HCl 0.1 mg tablet 0.1 mg PO Q12H fexofenadine [Allergy Relief (fexofenadine)] 180 mg tablet 180 mg PO DAILY benzoyl peroxide 10 % cleanser 1 applic topical DAILY mometasone 50 mcg/actuation spray,non-aerosol 2 spray intranasal Q12H Rx Instructions: administer into each nostril hydroxyzine HCl 25 mg tablet 25 mg PO Q6H PRN ketoconazole 2 % shampoo topical DAILY tizanidine 2 mg tablet 2 mg PO 3XD ondansetron HCl 8 mg tablet PO buspirone 30 mg tablet 30 mg PO BID methylprednisolone 4 mg tablet 4 - 12 mg PO DAILY Qty: 11 0RF Rx Instructions: 3 tablets by mouth once daily for 2 days, then 2 tablets by mouth daily for 2 days. Then 1 tablet on Monday. fluoxetine 40 mg capsule PO primidone 50 mg tablet 50 mg PO QPM sulfamethoxazole-trimethoprim 800-160 mg tablet 1 tab PO BID fluticasone propion-salmeterol [Wixela Inhub] 100-50 mcg/dose blister with device INHALATION Patient Comments: [NO ORIGINAL SIG] clobetasol 0.05 % solution 1 applic topical BID clindamycin phosphate 1 % solution topical prednisone 20 mg tablet 20 mg PO DAILY Qty: 5 0RF amoxicillin 500 mg tablet 500 mg PO TID Qty: 15 0RF ketoconazole 2 % shampoo 1 applic topical 3XW Qty: 120 0RF methylprednisolone [Medrol (Murray)] 4 mg tablets,dose pack See Rx Instructions .ROUTE .COMPLEX Qty: 21 0RF Rx Instructions: orally per package directions amoxicillin-pot clavulanate 875-125 mg tablet 1 tab PO BID Qty: 20 1RF Follow Up/Referrals: Leyla Sands DO [Primary Care Provider, Family Practice] [facility] Info Instructions
--- OUTSIDE RECORDS SUMMARY | 2024-12-31 02:43 | XMS_ITS | Clinical Summary ---
Author Organization [facility] Address [address] , [address] [place] [address] Phone Care Team Providers Care Exercise Instruct Name Role Phone [facility] Unavailable Unava ilable Conditions or Problems Problem Name Problem Code Onset Date Status Entry Date Provider Comment Standard Description Annotate Tremor 45501797 (SNOMED CT) 04/05 Active 04/05 Yaima Ledesma DNP,CAMPUS MANAGER,CN P Tremor Occipital neuralgia, bilateral M54.81 (ICD-10-CM) 11/11 Active 11/11 Yaima Ledesma DNP,CAMPUS MANAGER,CN P Occipital neuralgia Cervical spasm 05727073 (SNOMED CT) 11/11 Active 11/11 Yaima Ledesma DNP,CAMPUS MANAGER,CN P Muscle spasm of head and/or neck 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 (ICD-10-CM) 07/30 Active 07/30 Vladimir Pa Jr, MD Circadian rhythm sleep disorder, delayed sleep phase type Parasomnia 92598196 (SNOMED CT) 11/09 Active 11/15 Rasmita Jackson CAMPUS MANAGER PYRIDINE OPERATOR Parasomnia Neck pain, chronic 874539075868 7 (SNOMED CT) 09/14 Active 09/14 Rasmita Paz CAMPUS MANAGER PYRIDINE OPERATOR Chronic neck pain Periodic limb movement disorder (PSG 2018: severe; 47/hr) 461211084 (SNOMED CT) 08/01 Active 08/02 Vladimir Pa Jr, MD Periodic limb movement disorder Obstructive sleep apnea (PSG 2018: mild; AHI 6; RDI 7; roz 83%) 06944392 (SNOMED CT) 08/01 Active 08/02 Vladimir Pa Jr, MD Obstructive sleep apnea syndrome Insomnia 427487510 (SNOMED CT) 07/27 Active 07/27 Vladimir Pa Jr, MD Insomnia Hypersomnia (ESS 17; NL MSLT 2010 [facility]) 59566408 (SNOMED CT) 07/27 Active 07/27 Vladimir Pa Jr, MD Hypersomnia NECK PAIN 15040542 (SNOMED CT) 04/09 Resolved 04/09 Rommel Ryder MD Neck pain SPASM OF MUSCLE 30928374 (SNOMED CT) 07/26 Resolved 07/27 Rommel Ryder MD Spasm CELIAC DISEASE 924333496 (SNOMED CT) Resolved Rommel Ryder MD Celiac disease FACIAL WEAKNESS 76430070 (SNOMED CT) 11/03 Resolved 11/03 Rommel Ryder MD Weakness of face muscles ANEMIA 360007447 (SNOMED CT) Resolved Rommel Ryder MD Anemia LUMBAR STRAIN 723662378 (SNOMED CT) 06/24 Resolved 06/24 Rommel Ryder MD Low back strain CERVICAL STRAIN 837642624 (SNOMED CT) 06/24 Resolved 06/24 Rommel Ryder MD Strain of neck muscle HEADACHE 80123619 (SNOMED CT) 10/28 Resolved 10/28 Rommel Ryder MD Headache FATIGUE (NL MSLT) 780.79 (ICD-9-CM) 12/06 Resolved 12/06 Rommel Ryder MD Other malaise and fatigue CHRONIC MIGRAINE W/O AURA W/O INTRACTABLE W/O SM G43.709 (ICD-10-CM) Active Phyllis Wong RN, MS, CAMPUS MANAGER, PYRIDINE OPERATOR Chronic migraine without aura, not intractable, without status migrainosus ANEMIA 287209454 (SNOMED CT) Removed Phyllis Wong RN, MS, CAMPUS MANAGER, PYRIDINE OPERATOR Anemia CELIAC DISEASE 129085986 (SNOMED CT) Removed Phyllis Wong RN, MS, CAMPUS MANAGER, PYRIDINE OPERATOR Celiac disease NECK PAIN 07218530 (SNOMED CT) 04/09 Removed 04/09 Yaima Ledesma DNP,CAMPUS MANAGER,CN P Neck pain FATIGUE (NL MSLT) 780.79 (ICD-9-CM) 12/06 Removed 12/06 Vladimir Pa Jr, MD Other malaise and fatigue HYPERSOMNIA 62413517 (SNOMED CT) 09/03 Resolved 09/03 Vladimir Pa Jr, MD Hypersomnia SLEEP DISTURBANCE, NOS 82627892 (SNOMED CT) 08/30 Resolved 08/30 Vladimir Pa Jr, MD Dyssomnia HYPERSOMNIA 61180195 (SNOMED CT) 09/03 Removed 09/03 Vladimir Pa Jr, MD Hypersomnia SNORING 20365973 (SNOMED CT) 09/03 Active 09/03 Vladimir Pa Jr, MD Snoring SLEEP DISTURBANCE, NOS 40043787 (SNOMED CT) 08/30 Removed 08/30 Yaima Ledesma DNP,CAMPUS MANAGER,CN P Dyssomnia SPASM OF MUSCLE 50920715 (SNOMED CT) 07/26 Removed 07/27 Yaima Ledesma DNP,CAMPUS MANAGER,CN P Spasm HEADACHE 67979703 (SNOMED CT) 10/28 Removed 10/28 Rommel Ryder MD Headache FACIAL WEAKNESS 97882396 (SNOMED CT) 11/03 Removed 11/03 Carson Luther MD Weakness of face muscles LUMBAR STRAIN 155239126 (SNOMED CT) 06/24 Removed 06/24 Valerio Zee MD Low back strain CERVICAL STRAIN 016332784 (SNOMED CT) 06/24 Removed 06/24 Valerio Zee MD Strain of neck muscle Medications Medication Instructions Start Date Stop Date Generic Name NDC Provider DIVALPROEX SODIUM ER 500 MG [id number] Take 1 tablet by mouth every night 08/05 divalproex [id number] Nay Tan PA-C DIVALPROEX SODIUM ER 500 MG [id number] TAKE 1 TABLET BY MOUTH AT BEDTIME *APPOINTMENT NEEDED* 10/05 divalproex 57782412252 Nay Tan PA-C NURTEC 75 MG TBDP Take 1 tab by mouth (place on or under tongue) at migraine onset. Maximum dose: 1 tab/24 hrs rimegepant 41820818929 Nay Tan PA-C TIZANIDINE HCL 2 MG TABS Take 1 tablet by mouth every eight hours as needed 04/01 tizanidine 84109730195 Rommel Ryder MD FLUOXETINE HCL 40 MG CAPS Take 2 capsule by mouth every morning 07/21 fluoxetine 78577097716 Rommel Ryder MD WIXELA INHUB 100-50 MCG/ACT AEPB Use 1 by mouth twice a day 11/04 fluticasone propion-salmeterol 01054588024 Rommel Ryder MD OMEPRAZOLE 20 MG CPDR omeprazole 16156743599 Nay Tan PA-C MELATONIN TABLET 3 mg every night 08/09 MELATONIN TABLET Nay Tan PA-C MONTELUKAST SODIUM 10 MG TABS Take 1 tablet by mouth every night 11/11 montelukast 94991490703 Rommel Ryder MD LEVOTHYROXINE SODIUM 125 MCG TABS 07/26 levothyroxine 45977665864 Rommel Ryder MD GABAPENTIN 300 MG CAPS 900 mg by mouth three times a day 05/06 gabapentin 54904210685 Rommel Ryder MD DIVALPROEX SODIUM ER 500 MG [id number] Take 1 tablet by mouth every night 08/05 divalproex 25328682595 Dahlia Henry LPN AJOVY 225 MG/1.5ML SOAJ Inject 1 pen injector subcutaneously once a month 11/19 [facility] 87627114561 Nay Tan PA-C DIVALPROEX SODIUM ER 500 MG [id number] TAKE 1 TABLET BY MOUTH AT BEDTIME 08/05 DIVALPROEX SODIUM 76592790351 Rommel Ryder MD EMGALITY 120 MG/ML SOAJ 240 mg on first month then 120 mg Q month 08/05 [facility] 04474478079 Rommel Ryder MD DEPAKOTE ER 500 MG [id number] 500 mg Q HS 10/05 DIVALPROEX SODIUM 19501846859 Rommel Ryder MD GABAPENTIN 300 MG CAPS 900 mg PO TID 05/06 GABAPENTIN 83540191214 Rommel Ryder MD BELSOMRA 20 MG TABS 1 orally QHS at 11:45pm for 12am bedtime 07/30 SUVOREXANT 74387042105 Rommel Ryder MD MULTIVITAMINS TABS 07/26 MULTIPLE VITAMIN 04220507464 Rommel Ryder MD B COMPLEX ORAL TABLET 08/30 B COMPLEX VITAMINS 94231425562 Rommel Ryder MD PROVENTIL HFA 108 (90 BASE) MCG/ACT INHALATION AEROSOL SOLUTION 08/05 ALBUTEROL SULFATE 17709390499 Rommel Ryder MD BUSPIRONE HCL 10 MG TABS 08/05 BUSPIRONE HCL 10216941084 Rommel Ryder MD VITAMIN D CAPS 4000u 08/30 CHOLECALCIFEROL CAPS 19772188652 Rommel Ryder MD SINGULAIR 10 MG TABS 08/05 MONTELUKAST SODIUM 92995444216 Rommel Ryder MD FLUOXETINE HCL 20 MG CAPS 05/19 FLUOXETINE HCL 89614606002 Rommel Ryder MD MONTELUKAST SODIUM 10 MG TABS TK 1 T PO QHS 11/11 MONTELUKAST SODIUM 02466076066 Rommel yRder MD FLUOXETINE HCL 40 MG CAPS TK 2 CS PO QAM 07/21 FLUOXETINE HCL 58723734114 Rommel Ryder MD WIXELA INHUB 100-50 MCG/ACT AEPB USE 1 INHALATION BY MOUTH TWICE DAILY 11/04 FLUTICASONE-SALMETE ROL 85354905985 Rommel Ryder MD TIZANIDINE HCL 2 MG TABS TAKE 1 TABLET BY MOUTH EVERY 8 HOURS NEEDED 04/01 TIZANIDINE HCL 33103338535 Rommel Ryder MD MEDROL 4 MG TBPK 1 dose pack to be taken according to instructions on package. 04/03 METHYLPREDNISOLONE 67273470743 Pamela Paz APRN, CNP BELSOMRA 20 MG TABS 1 orally QHS at 11:45pm for 12am bedtime 07/30 SUVOREXANT 94016888227 Vladimri Pa Jr, MD BELSOMRA 15 MG TABS 1 orally QHS at 11:45pm for 12am bedtime (free 10 tab trial) 07/30 SUVOREXANT 15120842501 Vladimir Pa Jr, MD BELSOMRA 20 MG TABS 1 orally QHS at 11:45pm for 12am bedtime (free 10 tab trial) 07/30 SUVOREXANT [id number] Vladimir Pa Jr, MD BELSOMRA 15 MG TABS 1 orally QHS at 11:45pm for 12am bedtime (free 10 tab trial) 07/30 SUVOREXANT [id number] Vladimir Pa Jr, MD TIZANIDINE HCL 2 MG TABS 07/16 TIZANIDINE HCL 73071178241 Vladimir Pa Jr, MD LORAZEPAM 1 MG TABS TAKE 1 TABLET BY MOUTH TWICE A DAY 05/10 LORAZEPAM 13611594236 Vladimir aP Jr, MD MELATONIN TABLET 3mg at 9 pm 08/09 MELATONIN TABS 72142979285 Pamela Paz APRN PYRIDINE OPERATOR NORTREL 0.5/0.75/1-35 MG-MCG TABS 07/26 NORETHIN-ETH ESTRAD TRIPHASIC 44628547435 Pamela Paz CAMPUS MANAGER PYRIDINE OPERATOR ATIVAN 1 MG TABS 07/27 LORAZEPAM 03789551297 Vladimir Pa Jr, MD DEPAKOTE ER 500 MG [id number] 500 mg HS 10/17 DIVALPROEX SODIUM 17134916882 lVadimir Pa Jr, MD DIVALPROEX SODIUM 500 MG TBEC TAKE 1 TABLET BY MOUTH AT BEDTIME. 10/05 DIVALPROEX SODIUM 39198156778 Vladimir Pa Jr, MD LORAZEPAM 1 MG TABS TAKE 1 TABLET BY MOUTH TWICE A DAY 05/10 LORAZEPAM 01530386482 Vladimir Pa Jr, MD TIZANIDINE HCL 2 MG TABS 07/16 TIZANIDINE HCL 20837087308 Vladimir Pa Jr, MD FLUOXETINE HCL 20 MG CAPS 05/19 FLUOXETINE HCL 93892380045 Vladimir Pa Jr, MD NORTREL 0.5/0.75/1-35 MG-MCG TABS 07/26 NORETHIN-ETH ESTRAD TRIPHASIC 63590946705 Vladimir Pa Jr, MD SPIRONOLACTONE 50 MG TABS 10/17 SPIRONOLACTONE 53828972289 Vladimir Pa Jr, MD SPIRONOLACTONE 50 MG TABS 10/17 SPIRONOLACTONE 49841278902 Rommel Ryder MD DEPAKOTE ER 500 MG [id number] 500 mg HS 10/17 DIVALPROEX SODIUM 75289878269 Rommel Ryder MD MAGNESIUM CAPSULE 08/30 MAGNESIUM OXIDE CAPS 74962533011 Rommel Ryder MD L-LYSINE HCL TABS 08/30 LYSINE HCL TABS 99734105110 Rommel Ryder MD CELEXA 20 MG TABS 1 qd 10/17 CITALOPRAM HYDROBROMIDE 77968443883 Rommel Ryder MD SYMBICORT 160-4.5 MCG/ACT AERO 10/17 BUDESONIDE-FORMOTER OL FUMARATE 33673385168 Rommel Ryder MD PROVENTIL HFA 108 (90 Base) MCG/ACT INHALATION AEROSOL SOLUTION 08/05 ALBUTEROL SULFATE 09446744388 Rommel Ryder MD SYMBICORT 160-4.5 MCG/ACT AERO 10/17 BUDESONIDE-FORMOTER OL FUMARATE 51526217371 Rommel Ryder MD SINGULAIR 10 MG TABS 08/05 MONTELUKAST SODIUM 65635329633 Rommel Ryder MD ZANAFLEX 2 MG ORAL CAPSULE 1 q hs 12/09 TIZANIDINE HCL 43143809938 Rommel Ryder MD ZANAFLEX 4 MG ORAL CAPSULE 1 qhs 12/09 TIZANIDINE HCL 81393637447 Rommel Ryder MD ZANAFLEX 6 MG ORAL CAPSULE 1 @ hs 12/09 TIZANIDINE HCL 63460028340 Rommel Ryder MD KETOROLAC TROMETHAMINE 10 MG TABS 1 po q6h prn migraine not to take longer than 4 days 05/19 KETOROLAC TROMETHAMINE 24639465491 Rommel Ryder MD DEPAKOTE ER 500 MG [id number] 1000 mg PO Q HS 10/14 DIVALPROEX SODIUM 58657108448 Rommel Ryder MD LEVOTHYROXINE SODIUM 125 MCG TABS 07/26 LEVOTHYROXINE SODIUM 86667819442 Rommel Ryder MD GABAPENTIN 300 MG CAPS 300 mg PO TID 05/06 GABAPENTIN 55645414513 Rommel Ryder MD MORPHINE SULFATE 15 MG TABS 15 mg po TID PRN for pain. Do not use more than 2 days per week. 10/14 MORPHINE SULFATE 75465012655 Rommel Ryder MD VENTOLIN HFA AERS 12/09 ALBUTEROL SULFATE AERS 87319457652 Phyllis Wong RN, MS, CAMPUS MANAGER, PYRIDINE OPERATOR SYMBICORT AERO 12/09 BUDESONIDE-FORMOTER OL FUMARATE AERO 98917708354 Phyllis Wong RN, MS, CAMPUS MANAGER, PYRIDINE OPERATOR CELEXA 20 MG TABS 1 qd 10/17 CITALOPRAM HYDROBROMIDE 47980461337 Phyllis Wong RN, MS, CAMPUS MANAGER, PYRIDINE OPERATOR SINGULAIR TABS 12/09 MONTELUKAST SODIUM TABS 73637552242 Phyllis Wong RN, MS, CAMPUS MANAGER, PYRIDINE OPERATOR OMEPRAZOLE 20 MG CPDR 09/20 OMEPRAZOLE 99031206823 Phyllis Wong RN, MS, CAMPUS MANAGER, PYRIDINE OPERATOR BUSPIRONE HCL 10 MG TABS 08/05 BUSPIRONE HCL 55711748774 Phyllsi Wong RN, MS, CAMPUS MANAGER, PYRIDINE OPERATOR ATIVAN 1 MG TABS 07/27 LORAZEPAM 56673430341 Phyllis Wong RN, MS, CAMPUS MANAGER, PYRIDINE OPERATOR ZANAFLEX 6 MG ORAL CAPSULE 1 @ hs 12/09 TIZANIDINE HCL 32948244024 Phyllis Wong RN, MS, CAMPUS MANAGER, PYRIDINE OPERATOR ZANAFLEX 4 MG ORAL CAPSULE 1 qhs 12/09 TIZANIDINE HCL 02642367135 Phyllis Wong RN, MS, CAMPUS MANAGER, PYRIDINE OPERATOR ZANAFLEX 2 MG ORAL CAPSULE 1 q hs 12/09 TIZANIDINE HCL 79663956969 Phyllis Wong RN, MS, CAMPUS MANAGER, PYRIDINE OPERATOR POTASSIMIN TABLET 08/30 POTASSIUM TABS 50219374579 Phyllis Wong RN, MS, CAMPUS MANAGER, PYRIDINE OPERATOR CALCIUM TABLET 08/30 CALCIUM CARBONATE-VITAMIN D TABS 83658703291 Phyllis Wong RN, MS, CAMPUS MANAGER, PYRIDINE OPERATOR SLOW RELEASE IRON TABLET EXTENDED RELEASE 08/30 FERROUS SULFATE DRIED CR-TABS 87106003016 Phyllis Wong RN, MS, CAMPUS MANAGER, PYRIDINE OPERATOR BINA-TAB 500 MG TBEC for acne 07/26 ERYTHROMYCIN BASE 72435737751 Phyllis Wong RN, MS, CAMPUS MANAGER, PYRIDINE OPERATOR PROZAC 40 MG ORAL CAPSULE 80mg daily 04/09 FLUOXETINE HCL 74620818922 Phyllis Wong RN, MS, CAMPUS MANAGER, PYRIDINE OPERATOR IBUPROFEN 800 MG TABS 2x/day as needed 07/26 IBUPROFEN 50256461935 Phyllis Wong RN, MS, CAMPUS MANAGER, PYRIDINE OPERATOR KETOROLAC TROMETHAMINE 10 MG TABS 1 po q6h prn migraine not to take longer than 4 days 05/19 KETOROLAC TROMETHAMINE 79870265301 Aminah Alcala RN, PYRIDINE OPERATOR CYCLOBENZAPRINE HCL 10 MG TABS One pill at bedtime as needed for muscle spasm 10/04 CYCLOBENZAPRINE HCL 42086268689 Yaima Ledesma DNP,CAMPUS MANAGER,PYRIDINE OPERATOR PROZAC 40 MG ORAL CAPSULE 80mg daily 04/09 FLUOXETINE HCL 54214541792 Yaima Ledesma DNP,CAMPUS MANAGER,PYRIDINE OPERATOR LORAZEPAM 1 MG TABS 3x/day 07/26 LORAZEPAM [id number] Vladimir Pa Jr, MD MORPHINE SULFATE 15 MG TABS 15 mg po TID PRN for pain. Do not use more than 2 days per week. 10/14 MORPHINE SULFATE 13260096773 Rommel Ryder MD DEPAKOTE ER 500 MG [id number] 1000 mg PO Q HS 10/14 DIVALPROEX SODIUM 62303883262 Rommel Ryder MD CYCLOBENZAPRINE HCL 10 MG TABS One pill at bedtime as needed for muscle spasm 10/04 CYCLOBENZAPRINE HCL 71086134581 Rommel Ryder MD CYCLOBENZAPRINE HCL 10 MG TABS Take one pill every evening 07/26 CYCLOBENZAPRINE HCL 65249098846 Rommel Ryder MD L-LYSINE HCL TABS 08/30 LYSINE HCL TABS 67764204772 Yaima Ledesma DNP,CAMPUS MANAGER,PYRIDINE OPERATOR MAGNESIUM CAPSULE 08/30 MAGNESIUM OXIDE CAPS [id number] Yaima Ledesma DNP,CAMPUS MANAGER,PYRIDINE OPERATOR POTASSIMIN TABLET 08/30 POTASSIUM TABS 20631971876 Yaima Ledesma DNP,CAMPUS MANAGER,PYRIDINE OPERATOR B COMPLEX ORAL TABLET 08/30 B COMPLEX VITAMINS 63525099541 Yaima Ledesma DNP,CAMPUS MANAGER,PYRIDINE OPERATOR VITAMIN D CAPS 4000u 08/30 CHOLECALCIFEROL CAPS [id number] Yaima Ledesma DNP,CAMPUS MANAGER,PYRIDINE OPERATOR CALCIUM TABLET 08/30 CALCIUM CARBONATE-VITAMIN D TABS 51264489503 Yaima Ledesma DNP,CAMPUS MANAGER,PYRIDINE OPERATOR DEPAKOTE ER 500 MG [id number] One pill daily 08/30 DIVALPROEX SODIUM 39622907627 Yaima Ledesma DNP,CAMPUS MANAGER,PYRIDINE OPERATOR FERROUS SULFATE 324 MG TBEC 07/26 FERROUS SULFATE 30376342895 Yaima Ledesma DNP,CAMPUS MANAGER,PYRIDINE OPERATOR SLOW RELEASE IRON TABLET EXTENDED RELEASE 08/30 FERROUS SULFATE DRIED CR-TABS [id number] Yaima Ledesma DNP,CAMPUS MANAGER,PYRIDINE OPERATOR MULTIVITAMINS TABS 07/26 MULTIPLE VITAMIN 85852037993 Yaima Ledesma DNP,CAMPUS MANAGER,PYRIDINE OPERATOR FERROUS SULFATE 324 MG TBEC 07/26 FERROUS SULFATE [id number] Yaima Ledesma DNP,CAMPUS MANAGER,PYRIDINE OPERATOR BINA-TAB 500 MG TBEC for acne 07/26 ERYTHROMYCIN BASE 84425510294 [facility] DNP,CAMPUS MANAGER,PYRIDINE OPERATOR LEVOTHROID 75 MCG TABS daily 07/26 LEVOTHYROXINE SODIUM 23849810700 Yaima Lozanoigel DNP,CAMPUS MANAGER,PYRIDINE OPERATOR LORAZEPAM 1 MG TABS 3x/day 07/26 LORAZEPAM 10427111596 Yaima Lozanoigel DNP,CAMPUS MANAGER,PYRIDINE OPERATOR PROZAC 40 MG ORAL CAPSULE daily 07/26 FLUOXETINE HCL 05205603114 [facility] DNP,CAMPUS MANAGER,PYRIDINE OPERATOR IBUPROFEN 800 MG TABS 2x/day as needed 07/26 IBUPROFEN 05476809750 [facility] DNP,CAMPUS MANAGER,PYRIDINE OPERATOR MEDROL 4 MG TBPK Take as directed 03/17 METHYLPREDNISOLONE 76311118869 [facility]a [facility] EDYTA,CAMPUS MANAGER,PYRIDINE OPERATOR ZOFRAN ODT 4 MG ORAL TABLET DISINTEGRATING 1 PO Q 6-8 hr prn nausea and vomiting with migraine 03/27 ONDANSETRON 92356558995 [facility] DNP,CAMPUS MANAGER,PYRIDINE OPERATOR CYCLOBENZAPRINE HCL 10 MG TABS Take one pill every evening 07/26 CYCLOBENZAPRINE HCL 50439414101 [facility] EDYTA,CAMPUS MANAGER,PYRIDINE OPERATOR GABAPENTIN CAPS 900 mg PO BID and 600 mg PO in the afternoon. 05/06 GABAPENTIN CAPS 82649049969 Rommel Ryder MD GABAPENTIN CAPS 600 MG PO TID 03/25 GABAPENTIN CAPS 93452308531 Rommel Ryder MD MEDROL 4 MG TBPK Take as directed 03/17 METHYLPREDNISOLONE 56232954300 Rommel Ryder MD GABAPENTIN CAPS 300 MG PO TID 03/27 GABAPENTIN CAPS 99568267394 Rommel Ryder MD ZOFRAN ODT 4 MG ORAL TABLET DISINTEGRATING 1 PO Q 6-8 hr prn nausea and vomiting with migraine 03/27 ONDANSETRON 47476784257 Rommel Ryder MD GABAPENTIN CAPS 2 qhs 03/22 GABAPENTIN CAPS 72232500486 Dahlia Henry LPN VICODIN 5-500 MG TABS 1 to 2 tabs PO q 6 hours PRN for headache 12/08 HYDROCODONE-ACETAMI NOPHEN 80193470487 Dahlia Henry LPN ZONEGRAN 100 MG CAPS 200 mg AM - 300 mg HS 01/20 ZONISAMIDE 90391842893 Dahlia Henry LPN GABAPENTIN CAPS 300 MG PO Q HS x 1 WEEK, 300 MG PO BID x 1 WEEK, 300 MG PO TID 09/20 GABAPENTIN CAPS 14627429285 Rommel Ryder MD ZONEGRAN 100 MG CAPS 200 mg AM - 300 mg HS 06/25 ZONISAMIDE 40643460194 Rommel DUMONT ODT 4 MG ORAL TABLET DISINTEGRATING 1 po qw6-8hr prn nausea and vomiting with migraine 12/08 ONDANSETRON 78934909321 Aminah Alcala RN, PYRIDINE OPERATOR MORPHINE SULFATE 15 MG TABS 15 mg po TID PRN for pain 12/08 MORPHINE SULFATE 09319055218 Aminah Alcala RN, PYRIDINE OPERATOR ZONEGRAN 100 MG CAPS 300mg am- 200mg pm 12/08 ZONISAMIDE 81556341875 Aminah Alcala RN, PYRIDINE OPERATOR ZONEGRAN 100 MG CAPS 200 mg PO BID 06/25 ZONISAMIDE 79671602227 Rommel Ryder MD VICODIN 5-500 MG TABS 1 to 2 tabs PO q 6 hours PRN for headache 12/08 HYDROCODONE-ACETAMI NOPHEN 41618191273 Rommel Ryder MD ZONEGRAN 100 MG CAPS 100 MG PO QHS x 1 week, 100 MG PO BID x 1 week, 100 mg PO Q AM and 200 mg PO Q HS x 1 week, 200 mg PO BID 11/23 ZONISAMIDE 18204682281 Rommel Ryder MD TOPAMAX 25 MG TABS 25 MG PO BID X 1 WEEK then 50 MG PO BID 10/28 TOPIRAMATE 73577644094 Rommel Ryder MD TOPAMAX 25 MG TABS 25 MG PO BID X 1 WEEK then 50 MG PO BID 10/28 TOPIRAMATE 10840904677 Rommel Ryder MD VIOXX TABS 25 MG 1 QD PRN 07/05 ROFECOXIB 08071673793 Rommel Ryder MD SOMA 350 MG TABS 1 Q HS PRN 0 07/05 CARISOPRODOL 50954052969 Rommel Ryder MD VIOXX TABS 25 MG 1 QD PRN 07/05 ROFECOXIB 25069214702 Valerio Zee MD SOMA 350 MG TABS 1 Q HS PRN 07/05 CARISOPRODOL 97238380428 Valerio Zee MD Medications Administered No information [...] PREDNISONE Critical No Longer Active Rasmita Paz CAMPUS MANAGER PYRIDINE OPERATOR VICODIN Unknown No Longer Active Rommel Ryder MD VICODIN Severe No Longer Active Phyllis Wong RN, MS, CAMPUS MANAGER, PYRIDINE OPERATOR PREDNISONE Critical No Longer Active Rommel Ryder MD VICODIN Critical No Longer Active Aminah Alcala RN, PYRIDINE OPERATOR TETRACYCLINE Critical No Longer Active Rommel Ryder [...] for D IVALPROEX EXTENDED RELEASE 500MG T [facility]_RR [phone] [id number] `DIVALPROEX EXTENDED RELEASE 500MG T`500`ME`60 Tablet`30`TYLER E 2 TABLETS BY MOUTH EVERY NIGHT AT BEDTIME``1`0` [id number]`2012 1021`[employer] [facility] [employer] 50849*`[phone]`` B e-scripts messen manuel refill request Internal [...] Yes Consent To Release information to the [employer] ([employer]) Office Visit: MIRELA Follow Up 11/19/20 MAIL [...] Nerve Bloc k and Trigger Point Injections CPT-2344622 Occipital nerve bloc k (Greater ONB) bilateral CPT-85284 Trigger point inj (3+ musc) CPT-J1100 Dexamethasone -- 15 mg 02/16 ORDERS Occipital Nerve Bloc k and Trigger Point Injections ORDERS TSH ORDERS T4 Free Direct ORDERS Ammonia ORDERS Occipital Nerve Bloc k and Trigger Point Injections CPT-02850 Trigger point inj (3+ musc) CPT-5956786 Occipital nerve bloc k (Greater ONB) bilateral CPT-J1100 Dexamethasone -- 15 mg 11/24 ORDERS Follow up MIRELA ORDERS We will contact you with test results 202 03/21/08 [facility]-[id number] Documentation of current medicatio ns ORDERS Occipital Nerve Bloc k and Trigger Point Injections CPT-39428 Trigger point inj (3+ musc) CPT-2942187 Occipital nerve bloc k (Greater ONB) bilateral CPT-J1100 Dexamethasone -- 10 mg 08/06 [id number] Consult CPT-20147 Trigger point inj (3+ musc) CPT-6908396 Occipital nerve bloc k (Greater ONB) bilateral CPT-J1100 Dexamethasone - 4 mg ORDERS Occipital Nerve Bloc k and Trigger Point Injections CPT-50699 Trigger point inj (3+ musc) CPT-7802577 Occipital nerve bloc k (Greater ONB) bilateral CPT-J1100 Dexamethasone -- 10 mg 11/11 ORDERS Dysport Injection ORDERS Occipital Nerve Bloc k and Trigger Point Injections ORDERS Occipital Nerve Bloc k and Trigger Point Injections CPT-83800 Trigger point inj (3+ musc) CPT-3564686 Occipital nerve bloc k (Greater ONB) bilateral ORDERS Migraine Infusion Or gregoria Set #1: Depacon/Solu-Medrol/Toradol CPT-J1100 Dexamethasone - 8mg CPT-27199 Trigger point inj (3+ musc) CPT-8804618 Occipital nerve bloc k (Greater ONB) bilateral ORDERS Occipital Nerve Bloc k and Trigger Point Injections ORDERS Follow up ORDERS Migraine Infusion Or gregoria Set #1: Depacon/Solu-Medrol/Toradol CPT-2378589 Occipital nerve block (Greater ONB) x2 20 02/05/25 CPT-91853 Trigger point inj (3+ musc) ORDERS Follow up CPT-17824 Trigger point inj (3+ musc) CPT-1017873 Occipital nerve block x2 202 0 CPT-J1100 Dexamethasone - 8mg ORDERS Follow up ORDERS Sleep Consult [id number] Other Referral CPT-V2662J Dysport 500u - 1 vial 04/08 CPT-75236 Chem - Face/Neck - Migraine or Headache 2 ORDERS Follow up ORDERS Patient Instructions CPT-3507415 Occipital nerve block x2 201 11/19/22 CPT-47500 Trigger point inj (3+ musc) CPT-J1100 Dexamethasone SCT-[id number] Other Referral ORDERS Follow up CPT-H0629J Dysport 500u - 1 vial 0 10/30 CPT-41817 Chem - Face/Neck - Migraine or Headache 2 ORDERS Follow up ORDERS Patient Instructions CPT-81867 Trigger point inj (3+ musc) CPT-3873968 Occipital nerve block x2 201 11/17/00 CPT-J1100 Dexamethasone -- 15 mg 09/10 [facility]-[id number] Documentation of current medicatio ns ORDERS Patient Instructions ORDERS Patient Instructions [id number]-[id number] Other Referral ORDERS Follow up CPT-V9449M Dysport 500u - 1 vial 07/16 CPT-45365 Chem - Face/Neck - Migraine or Headache 2 ORDERS Follow up ORDERS Follow up ORDERS Instructions for Staff 06/06 CPT-8951841 Occipital nerve block x2 201 11/13/26 CPT-06490 Trigger point inj (1-2 musc) CPT-J1100 Dexamethasone -- 15 mg 06/06 CPT-B6834H Dysport 500u - 1 vial 2019/0 04/04 CPT-21482 Chem - Face/Neck - Migraine or Headache 2 CPT-I3079J Dysport 500u - 1 vial 03/24 CPT-37448 Chem - Face/Neck - Migraine or Headache 2 ORDERS Follow up ORDERS Follow up ORDERS Migraine Order Set # 1: Depacon/Solu-Medrol/Toradol SCT-[id number] Other Referral ORDERS Patient Instructions ORDERS Follow up [id number] Documentation of current medicatio ns ORDERS Patient Instructions ORDERS Follow up ORDERS Other Test CPT-W6975S Dysport 500u - 1 vial 201810/16 CPT-84748 Chem - Face/Neck - Migraine or Headache 2 SCT-[id number] Documentation of current medicatio ns ORDERS Patient Instructions SCT-[id number] Other Referral ORDERS Patient Instructions ORDERS Ferritin Serum SCT-[id number] Documentation of current medicatio ns SCT-[id number] Other Referral ORDERS Follow up SCT-[id number] Other Referral CPT-60191 PSG, 4+ parameters w / tech - 6yrs or older (42410) ORDERS Ammonia ORDERS Patient Instructions SCT-[id number] Other Referral SCT-[id number] Documentation of current medicatio ns ORDERS ALT (SGPT) ORDERS AST (SGOT) ORDERS CBC no Diff/ Platelet 07/27 ORDERS TSH ORDERS Vitamin B12 ORDERS Follow up CPT-F1263W Dysport 500u - 1 vial 07/25 CPT-96987 Chem - Face/Neck - Migraine or Headache 2 ORDERS Follow up CPT-R9621Y Dysport 500u - 1 vial 05/02 CPT-15457 Chem - Face/Neck - Migraine or Headache 2 CPT-S1559X Dysport 500u - 1 vial 04/09 CPT-54610 Chem - Face/Neck - Migraine or Headache 2 ORDERS Follow up ORDERS Follow up CPT-K9055I Dysport 500u - 1 vial 11/10 CPT-02201 Chem - Face/Neck - Migraine or Headache 2 ORDERS Migraine Order Set # 1: Depacon/Solu-Medrol/Toradol ORDERS Follow up CPT-66431 Brief emotional/behavioral assessment 201 09/17/06 CPT-K1009E Dysport 300u - 1 vial 03/15 CPT-13121 Chem - Face/Neck - Migraine or Headache 2 SCT-[id number] Documentation of current medicatio ns SCT-[id number] Documentation of current medicatio ns CPT-P9393L * Depacon 1000mg (enter units) CPT-J2930 * Solu-Medrol, 1000 mg / 1g (x8) CPT-J2405 * Zofran 1mg (enter units) 2 CPT-H7408L * Toradol 60mg (enter units) CPT-B0021f * Normal Saline 200 cc 01/15 CPT-68320 IV infusion - Primar y Indication (16 min - 1 hr 30 min ) CPT-95425 Each add IVP of new drug/ Repeats if 30m apart/Each Add Tere Ind drug 15m or less CPT-J2930 * Solu-Medrol, 1000 mg / 1g (x8) CPT-F5594J * Depacon 1000mg (enter units) CPT-J2405 * Zofran 1mg (enter units) 2 CPT-J1885 * Toradol 15mg (enter units) CPT-E3067v * Normal Saline 200 cc 10/04 CPT-72893 IV infusion - Primar y Indication (16 min - 1 hr 30 min ) CPT-39303 Each add IVP of new drug/ Repeats if 30m apart/Each Add Tere Ind drug 15m or less CPT-92442 MRI Cervical W/O CPT-27769 MRI Cervical W/O CPT-J2930 * Solu-Medrol, 1000 mg / 1g (x8) CPT-C9828A * Depacon 1000mg (enter units) CPT-J2405 * Zofran 1mg (enter units) 2 CPT-J1885 * Toradol 15mg (enter units) CPT-C8386F * Normal Saline 100 cc 02/07 CPT-26086 IV infusion - Primar y Indication (16 min - 1 hr 30 min ) CPT-98011 Each add IVP of new drug/ Repeats if 30m apart/Each Add Tere Ind drug 15m or less CPT-J2930 * Solu-Medrol, 1000 mg / 1g (x8) CPT-J2405 * Zofran 1mg (enter units) 2 CPT-J1885 * Toradol 15mg (enter units) CPT-R2764A * Normal Saline 100 cc 01/10 CPT-58418 IV infusion - Primar y Indication (16 min - 1 hr 30 min ) CPT-62884 Each add IVP of new drug/ Repeats if 30m apart/Each Add Tere Ind drug 15m or less CPT-90831 Multiple Sleep Latency Testing (43481) 20 01/19/26 CPT-12939 Polysomnography, 4+ parameters w/ tech (31175) CPT-J2930 * Solu-Medrol, 1000 mg / 1g (x8) CPT-P0134O * Normal Saline 100 cc 11/22 CPT-J2405 * Zofran 1mg (enter units) 2 CPT-A9542S * Depacon 500 mg CPT-47165 IV infusion - Primar y Indication (16 min - 1 hr 30 min ) CPT-20885 Each add IVP of new drug/ Repeats if 30m apart/Each Add Tere Ind drug 15m or less CPT-G8553 eRX Charge CPT-J2930 * Solu-Medrol, 1000 mg / 1g (x8) CPT-Q4556G * Depacon 1000mg (enter units) CPT-J1885 * Toradol 15mg (enter units) CPT-C5441S * Normal Saline 100 cc 08/16 CPT-51352 IV infusion - Primar y Indication (16 min - 1 hr 30 min ) CPT-18918 Each add IVP of new drug/ Repeats if 30m apart/Each Add Tere Ind drug 15m or less CPT-P8458J * Depacon 500 mg CPT-J2930 * Solu-Medrol, 1000 mg / 1g (x8) CPT-J1885 * Toradol 15mg (enter units) CPT-J2405 * Zofran 1mg (enter units) 2 CPT-20071 IV infusion - Primar y Indication (16 min - 1 hr 30 min ) CPT-20621 Each add IVP of new drug/ Repeats if 30m apart/Each Add Tere Ind drug 15m or less CPT-60783 Each add IVP of new drug/ Repeats if 30m apart/Each Add Tere Ind drug 15m or less CPT-K3076Y * Depacon 1000mg (enter units) CPT-J2930 * Solu-Medrol, 1000 mg / 1g (x8) CPT-Q1977s * Normal Saline 200 cc 07/14 CPT-J2405 * Zofran 1mg (enter units) 2 CPT-J1885 * Toradol 15mg (enter units) CPT-36373 IV infusion - Primar y Indication (16 min - 1 hr 30 min ) CPT-71985 Infusion -- Tere Venita cation for 15 min or less/Single Push CPT-J2930 * Solu-Medrol, 1000 mg / 1g (x8) CPT-F6110C * Depacon 1000mg (enter units) CPT-J1885 * Toradol 15mg (enter units) CPT-L6397S * Normal Saline 100 cc 07/05 CPT-85765 IV infusion - Primar y Indication (16 min - 1 hr 30 min ) CPT-31954 Each add IVP of new drug/ Repeats if 30m apart/Each Add Tere Ind drug 15m or less CPT-J2930 * Solu-Medrol, 1000 mg / 1g (x8) CPT-N8137F * Depacon 1000mg (enter units) CPT-J2405 * Zofran 1mg (enter units) 2 CPT-J1885 * Toradol 15mg (enter units) CPT-W5705I * Normal Saline 100 cc (enter units) 2010 CPT-10156 Infusion -- Tere Venita cation for 15 min or less/Single Push CPT-69959 Each add IVP of new drug/ Repeats if 30m apart/Each Add Tere Ind drug 15m or less CPT-J2930 * Solu-Medrol, 1000 mg / 1g (x8) CPT-A8946Z * Depacon 1000mg (enter units) CPT-J1885 * Toradol 15mg (enter units) CPT-F2362I * Normal Saline 100 cc 04/26 CPT-88015 IV infusion - Primar y Indication (16 min - 1 hr 30 min ) CPT-16165 Infusion -- Tere Venita cation for 15 min or less ONLY/Single Push ONLY CPT-66066 IV Infusion - Each A ddtl Tere Indication Med (16 min or more) - (enter units) CPT-J2930 * Solu-Medrol, 1000 mg / 1g (x8) CPT-M9217M * Depacon 1000mg (enter units) CPT-J2405 * Zofran 1mg (enter units) 2 CPT-J1885 * Toradol 15mg (enter units) CPT-G0092Q * Normal Saline 100 cc 03/24 CPT-57481 Infusion -- Tere Venita cation for 15 min or less ONLY/Single Push ONLY CPT-38515 IV infusion - Primar y Indication (16 min - 1 hr 30 min ) CPT-47078 IV Infusion - Each A ddtl Tere Indication Med (16 min or more) - (enter units) CPT-J1100 Dexamethasone -- 10 mg 03/11 CPT-0440849 Occipital nerve block x2 201 CPT-J1100 Dexamethasone - 4 mg CPT-8112289 Occipital nerve block x2 201 CPT-J1100 Dexamethasone - 4 mg CPT-1677315 Occipital nerve block x2 201 CPT-J2930 * Solu-Medrol, 1000 mg / 1g (x8) CPT-U2096O * Depacon 1000mg (enter units) CPT-J2405 * Zofran 1mg (enter units) 2 CPT-J1885 * Toradol 15mg (enter units) CPT-N6462G * Normal Saline 100 cc 12/04 CPT-08706 IV infusion - Primar y Indication (16 min - 1 hr 30 min ) CPT-44908 Each add IVP of new drug/ Repeats if 30m apart/Each Add Tere Ind drug 15m or less CPT-J2930 * Solu-Medrol, 1000 mg / 1g (x8) CPT-J0340B * Depacon 1000mg (enter units) CPT-39907 IV infusion - Primar y Indication (16 min - 1 hr 30 min ) CPT-71034 IV Infusion - Each A ddtl Tere Indication Med (16 min or more) - (enter units) CPT-P9711W * Normal Saline 200 cc 11/10 CPT-J2405 * Zofran 1mg (enter units) 2 CPT-J1885 * Toradol 15mg (enter units) CPT-13982 MRI Brain (With & Without Contrast) 11/05 A9579 ProHance Pedrito-based MR Contrast, 20 ml via l CPT-J2930 * Solu-Medrol, 1000 mg / 1g (x8) CPT-M7189L * Depacon 1000mg (enter units) CPT-J1885 * Toradol 15mg (enter units) CPT-N2194L * Normal Saline 100 cc 10/28 CPT-64723 Each add IVP of new drug/ Repeats if 30m apart/Each Add Tere Ind drug 15m or less CPT-31355 IV infusion - Primar y Indication (16 [...]
== END 2024-12-31 02:59 | disposition home or self-care (01) ==
PROVIDERS: Emergency Provider Family Medicine; PCP Family Medicine
DX: F22 Delusional disorders (principal); R82.91 Other chromoabnormalities of urine; Z32.02 Encounter for pregnancy test, result negative
CPT/HCPCS: 81001; 81025; 87086; 99283; 99284

== ENCOUNTER 2025-02-11 17:42 | Outpatient (CLI) | payer MEDICARE, OTHER, SELFPAY | END 2025-02-11 17:43 | disposition home or self-care (01) | LOC: AMB 03-18 08:02 | PROVIDERS: PCP Family Medicine; Visit Provider Emergency Medicine Emergency Medical Services | DX: F29 Unspecified psychosis not due to a substance or known physiological condition (principal) | CPT/HCPCS: A0425; A0429 ==